=== PATIENT | female | born 1985 | race Caucasian/White ===

== ENCOUNTER 2021-05-20 14:51 | Emergency (ER) | payer OTHER, SELFPAY ==
[2021-05-20 15:35] VITALS: BP 128/81; PULSE 75; RESP 20; TEMP 36.9; O2SAT 98; BMI 34.0
--- NOTE | 2021-05-20 16:20 | HMH.EDUTC ---
[facility] [place] Disposition Clinical Impression: Pharyngitis, Viral syndrome Disposition: Home, Self-Care Condition on Discharge: Good Instructions: Sore Throat, DI for Pharyngitis/Tonsillopharyngitis -- Adult Additional Instructions: Drink plenty of fluids. Take tylenol or ibuprofen for pain or fever. Take the medications as directed. Follow up with your regular doctor. GO TO THE ER FOR ANY WORSENING SYMPTOMS Prescriptions: Benzonatate [Tessalon Perle 100mg Cap] 100 mg PO TIDP PRN #30 cap PRN Reason: Cough Transmission Status: Received by [facility] Azithromycin [Z-Luigi 250mg Tab*] 250 mg PO UD DOSE PK #6 tab Transmission Status: Received by [facility] Referrals: Lona Valdes APRN [Primary Care Provider] - Forms: Work/School Release Time of Disposition: 16:27 Medical Decision Making - Medical Records Medical records reviewed: No: I reviewed the patient's medical records. - Lonny Inquiry Pt receiving controlled substance: No Vital Signs: 05/20/21 15:35 05/20/21 16:41 Temperature 98.5 F 98.5 F Temperature Source Oral Pulse Rate 75 Pulse Rate [Right Brachial] 75 Respiratory Rate 20 20 Blood Pressure 128/81 Blood Pressure [Right Arm] 128/81 Blood Pressure Mean [Right Arm] 96 Blood Pressure Source [Right Arm] Automatic Cuff Blood Pressure Position [Right Arm] Sitting 02 Sat by Pulse Oximetry 98 Oxygen Delivery Method Room Air - Lab Data Lab Results 05/20/21 15:54: Strep Scn Rapid Clinic Negative [facility] [place] HPI - General Stated complaint: covid test Time Seen by Provider: 05/20/21 15:55 Mode of Arrival: Ambulatory Source of Information: Patient Limitations: No Limitations Description of Symptoms (Recalled from Triage Doc. by RN): PATIENT C/O SORE THROAT, CONGESTION, AND COUGH. HEENT Symptoms (Recalled from RN notes): Yes Resp Symptoms (Recalled from RN notes): No Skin Symptoms (Recalled from RN notes): No MS Symptoms (Recalled from RN notes): No Functional Status (Recalled from RN notes): WNL - History of Present Illness Provider Complaint: She c/o sore throat, sinus congestion, and feeling bad for the past 3 days. - Related Data Home Medications Medication Instructions Recorded Confirmed gabapentin 600 mg tablet PO 30 Days #90 tab 10/17/18 10/17/18 lansoprazole 15 mg capsule,delayed PO 30 Days #30 cap 10/17/18 10/17/18 release metformin 500 mg tablet,extended PO 30 Days #30 tab 10/17/18 10/17/18 release 24 hr oxycodone-acetaminophen 5 mg-325 PO 7 Days #28 tab 10/17/18 10/17/18 mg tablet Previous Rx's Medication Instructions Recorded Azithromycin [Z-Luigi 250mg Tab*] 250 mg PO UD DOSE PK #6 tab 05/20/21 Benzonatate [Tessalon Perle 100mg 100 mg PO TIDP PRN #30 cap 05/20/21 Cap] Allergies Allergy/AdvReac Type Severity Reaction Status Date / Time No Known Allergies Allergy Unverified 10/17/18 15:52 - Worker's Comp Is this a Worker's Comp case?: No [facility] History - Hepatitis A Screen Drug use history?: No High risk sexual behaviors?: No History of sexually transmitted infection?: No Currently employed?: No Childcare worker?: No Do you have indoor plumbing?: Yes Do you have electricity?: Yes Attestation statement:: This patient has been screened for Hepatitis A risk factors. I have reviewed the patient's past medical history: Yes Amputation: No Fractures: No Comment: back surgery, foot surgery - Social History Smoking Status: Never smoker Alcohol Intake: never Substance Use Type: denies use Occupational Status: other Family Hx:: No significant family history ROS Obtained: Yes All systems reviewed & no additional complaints - Constitutional Constitutional: Reports system reviewed and no additional complaints, except as docu - Eyes Eyes: Reports system reviewed and no additional complaints, except as docu - ENT Ears, Nose, Mouth, and Throat: Reports system reviewed and no additional complaints, exc
[2021-05-20 16:41] VITALS: BP 128/81; PULSE 75; RESP 20; TEMP 36.9; O2SAT 98
[2021-05-20 18:07] LABS: UTC Strep Screen (Rapid) Negative (Negative)
== END 2021-05-20 16:51 | disposition home or self-care (01) ==
PROVIDERS: Emergency Provider Nurse Practitioner Family; PCP Nurse Practitioner Family
DX: J02.9 Acute pharyngitis, unspecified (principal); B34.9 Viral infection, unspecified
CPT/HCPCS: 87880; 99202; G0463

== ENCOUNTER → 2022-11-22 14:53 | Outpatient (CLI) | payer OTHER, SELFPAY ==
--- NOTE | 2022-11-22 15:03 | XR_ITS ---
FINAL REPORT CLINICAL HISTORY: ABD PAIN FINDINGS: Flat and upright views of the abdomen were obtained. There is a nonobstructive bowel gas pattern. There is no free air. There is no abnormal calcification. There are postoperative changes in the abdomen. The bony structures are intact. IMPRESSION: No acute abnormality. Reviewed, Interpreted and Dictated by Jak Ventura III, MD Transcribed by Blaire Marquis Authenticated and [facility]
== END ==
PROVIDERS: PCP Nurse Practitioner; Visit Provider Nurse Practitioner
DX: R10.9 Unspecified abdominal pain (principal)
CPT/HCPCS: 74019

== ENCOUNTER 2023-06-09 11:03 | Emergency (ER) | payer OTHER, SELFPAY ==
[2023-06-09 11:20] VITALS: BP 143/94; PULSE 82; RESP 18; TEMP 36.9; O2SAT 99; BMI 31.7
[2023-06-09 11:30] VITALS: BP 142/90; PULSE 77; O2SAT 98
[2023-06-09 12:00] VITALS: BP 158/86; PULSE 78; O2SAT 100
--- NOTE | 2023-06-09 12:04 | US_ITS ---
PROCEDURE INFORMATION: Exam: US , Transvaginal Exam date and time: 06/09/2023 12:33 PM Age: 37 years old Clinical indication: Lmp or gestational age (in weeks): 7 weeks; Other: Spotting; ; Additional info: Preg, vag bleeding, location of preg? LABS AND CLINICAL REPORTS: Last menstrual period start date: 04/17/2023 Gestational age (Established): 7 w 4 d Estimated due date (Established): 01/22/2024 TECHNIQUE: Imaging protocol: Real-time transvaginal obstetrical ultrasound of the maternal pelvis with image documentation. Transvaginal imaging was used for better evaluation of the fetus, adnexa, and/or cervix. COMPARISON: No relevant prior studies available. FINDINGS: Gestation: No evidence of intrauterine gestational sac MATERNAL: Uterus: Endometrium measures 8.1 mm. The uterus measures 8.7 x 4.0 x 4.8 cm. No myometrial lesions. Right ovary/adnexa: Right ovary measures 3.4 cm x 2.75 cm x 2.11 cm. Right ovarian volume is 10.33 mL. Ovarian stroma is unremarkable. There is normal arterial inflow and venous outflow. Left ovary/adnexa: Left ovary measures 4.36 cm x 2.25 cm x 2.21 cm. Left ovarian volume is 11.35 mL. Ovarian stroma is unremarkable. There is normal arterial inflow and venous outflow. IMPRESSION: In the setting of a positive test, sonographic findings are consistent with of unknown location. Considerations include a normal intrauterine too early to visualize, completed miscarriage, and ectopic . The absence of adnexal lesions significantly decreases but does not entirely exclude the possibility of ectopic . Recommend correlation with beta hCG values and close clinical follow-up with repeat sonography as clinically warranted
--- NOTE | 2023-06-09 12:06 | HMH.EDGENADL ---
Discharge Plan Disposition Patient Disposition: Home, Self-Care Prescriptions Prescriptions: No Action oxycodone-acetaminophen 5-325 mg tablet PO 7 Days Qty: 28 gabapentin 600 mg tablet PO 30 Days Qty: 90 Patient Comments: TAKE 1 TABLET BY MOUTH EVERY 8 HOURS lansoprazole 15 mg capsule,delayed release(DR/EC) PO 30 Days Qty: 30 Patient Comments: TAKE 1 CAPSULE BY MOUTH EVERY DAY metformin 500 mg tablet extended release 24 hr PO 30 Days Qty: 30 Patient Comments: TAKE 1 TABLET BY MOUTH EVERY DAY WITH EVENING MEAL azithromycin 250 MG tablet 250 mg PO UD DOSE PK Qty: 6 0RF Rx Instructions: Take two (2) tablets today, then one (1) tablet days #2 thru #5 benzonatate 100 MG capsule 100 mg PO TIDP PRN (Reason: Cough) Qty: 30 0RF Referrals Follow up/Referrals: Kimmie Valverde APRN [Primary Care Provider] - See instructions Activity Restrictions/Add. Instructions Additional Instructions/Restrictions: There was no intrauterine or abnormality found in your transvaginal or transabdominal ultrasound. Additionally quantitative beta-hCG was 4 which is below the upper limit of normal meaning it is negative for . This means you either had a completed miscarriage or were never to begin with. I would follow-up with your ENGINEERING ANALYST doctor for further discussion return with any worsening symptoms. Clinical Impressions Clinical Impression: Abnormal uterine bleeding Discharge ED Provider: Ijeoma García General Adult HPI General Chief complaint: Vaginal Bleeding Stated complaint: spotting, 1-10wks Time Seen by Provider: 06/09/23 11:55 Mode of Arrival: Ambulatory Source of Information: Patient Limitations: No Limitations Description of Symptoms (Recalled from ER Triage Doc. by RN): c/o vaginal spotting this am with no abdominal pain or cramping. PT states that she seen her pcp and was told she was 1-10 wks due to her labs, pt states she sees her obgyn at on Monday or Monday. She has had 2 miscarriages in the past with 2 live births with the last child being born at 32 wks due to pre-eclampsia. History of Present Illness HPI narrative: Patient is a G5, at unknown gestational age presents today with vaginal bleeding in the setting of a positive home test. She does not have any significant bleeding or clot passage no cramps or loss of fluid. She has had 2 first trimester miscarriages in the past and 2 live births with children they are doing well at this point. She is high risk both from a medical history standpoint which she has a history of colon resection and also had preeclampsia on her last but also advanced maternal age she does not have an ENGINEERING ANALYST doctor yet but is probably get a follow[facility] with [facility]. She believes that her blood type is O+. She also states she had some urinary frequency. Related Data Home Medications Medication Instructions Recorded Confirmed gabapentin 600 mg tablet PO 30 days #90 tabs 10/17/18 10/17/18 lansoprazole 15 mg capsule,delayed PO 30 days #30 caps 10/17/18 10/17/18 release metformin 500 mg tablet,extended PO 30 days #30 tabs 10/17/18 10/17/18 release 24 hr oxycodone-acetaminophen 5 mg-325 PO 7 days #28 tabs 10/17/18 10/17/18 mg tablet Previous Rx's Medication Instructions Recorded azithromycin 250 mg tablet 250 mg PO UD DOSE PK #6 tabs 05/20/21 benzonatate 100 mg capsule 100 mg PO TIDP PRN Cough #30 caps 05/20/21 Allergies Allergy/AdvReac Type Severity Reaction Status Date / Time No Known Allergies Allergy Unverified 10/17/18 15:52 [facility] Disclaimer: The information contained in this section may have been updated after the patient was seen, as this information can be updated by other users. Social History Smoking Status: Unknown if ever smoked alcohol intake: never substance use type: denies use
[2023-06-09 12:21] LABS: Microscopic, Urine URINE MICROSCOPIC (MICROSCOPIC)
[2023-06-09 12:26] LABS: Appearance,Urine CLEAR (Clear); Bilirubin,Urine Negative (Negative); Blood, Urine 2+ (Negative); Color,Urine YELLOW (Yellow); Glucose,Urine (UA) Negative (Negative); Ketones,Urine Negative (Negative); Leukocyte Esterase,Urine Negative (Negative); Nitrate,Urine Negative (Negative); Protein,Urine Negative (Negative); Urobilinogen,Urine 0.2 EU/dl (0.2)
--- NOTE | 2023-06-09 12:30 | PC.NURSE ---
pt to US
[2023-06-09 12:45] LABS: Bacteria,Urine Trace /lpf; Squamous Epithelial Cell,Urine Occasional #/hpf (0-5)
--- NOTE | 2023-06-09 13:06 | PC.NURSE ---
Assumed patient care at this time
[2023-06-09 13:24] VITALS: BP 138/83; PULSE 71; RESP 17; O2SAT 99
--- NOTE | 2023-06-09 13:25 | PC.NURSE ---
Rounded on patient; call ram within reach of patient. Patient requesting something to drink will notify MD.
[2023-06-09 13:27] LABS: Alanine Aminotransferase 22 U/L (12-78); Albumin Level 4.5 g/dl (3.5-5.0); Albumin/Globulin Ratio 1.4 (1.1-1.8); Alkaline Phosphatase 104 U/L (38-126); Anion Gap 15.2 mEq/L (5-15); Aspartate Amino Transferase 26 U/L (14-36); Bilirubin,Total 0.5 mg/dl (0.2-1.3); Blood Urea Nitrogen 6 mg/dl (7-17); Calcium 8.8 mg/dl (8.4-10.2); Carbon Dioxide 24 mmol/L (22.0-30.0); Chloride 105 mmol/L (98-107); Creatinine Clearance Estimated 170 mL/min (50-200); Estimated Glomerular Filt Rate 112 ml/min (>60); GFR (African American) 136 ML/MIN (>60); Globulin 3.3 g/dL (1.3-3.2); Glucose 88 mg/dl (74-100); Potassium 4.2 mmoL/L (3.5-5.1); Sodium 140 mmol/L (136-145); Total Protein,Serum 7.8 g/dl (6.3-8.2)
[2023-06-09 13:28] LABS: Basophils # 0.1 K/mm3 (0-0.2); Basophils % 0.8 % (0.1-2.0); Eosinophils # 0.1 K/mm3 (0.0-0.4); Eosinophils % 0.7 % (0.1-12.0); Hematocrit 46.4 % (37.0-47.0); Hemoglobin 14.6 g/dL (12.2-16.2); Lymphocytes # 2.7 K/mm3 (0.7-4.5); Lymphocytes % 25.3 % (10-50); Mean Corpuscular HGB Conc 31.4 g/dL (31.8-35.4); Mean Corpuscular Volume 92.4 fl (81-99); Mean Platelet Volume 7.8 fl (7.4-10.4); Monocytes # 0.5 K/mm3 (0.1-1.0); Monocytes % 4.3 % (1.7-9.3); Neutrophils # 7.4 K/mm3 (1.8-7.8); Neutrophils % 68.9 % (37.0-80.0); Platelet Count 293 K/mm3 (142-424); Red Blood Count 5.02 M/mm3 (4.20-5.40); Red Cell Distribution Width 12.8 % (11.5-17.5); White Blood Count 10.8 K/mm3 (4.8-10.8)
[2023-06-09 13:44] LABS: HCG,Quantitative 4 mIU/ml (0-5.42)
[2023-06-09 14:12] VITALS: BP 129/73; PULSE 74; RESP 16; TEMP 36.7
== END 2023-06-09 14:13 | disposition home or self-care (01) ==
PROVIDERS: Emergency Provider Student in an Organized Health Care Education/Training Program; PCP Nurse Practitioner
DX: N93.9 Abnormal uterine and vaginal bleeding, unspecified (principal)
CPT/HCPCS: 36415; 76817; 80053; 81001; 84702; 85025; 86850; 99284

== ENCOUNTER 2024-01-18 09:50 | Emergency (ER) | payer OTHER, SELFPAY ==
[2024-01-18 09:52] VITALS: BP 130/65; PULSE 83; RESP 18; TEMP 36.8; O2SAT 97; BMI 34.3
[2024-01-18 10:01] VITALS: BP 137/86; PULSE 84; O2SAT 98
--- NOTE | 2024-01-18 10:08 | US_ITS ---
PROCEDURE INFORMATION: Exam: US Pelvis, Transvaginal Exam date and time: 01/18/2024 10:38 AM Age: 38 years old Clinical indication: Other: Bleeding passing clots; Additional info: Assess preg location LABS AND CLINICAL REPORTS: Last menstrual period start date: 10/25/2023 TECHNIQUE: Imaging protocol: Real-time transvaginal pelvic ultrasound with image documentation. Transvaginal imaging was used for better evaluation of the endometrium, adnexa, and/or cervix. COMPARISON: US OB TRANSVAGINAL 06/09/2023 12:33 PM FINDINGS: Uterus: The endometrium is thickened and heterogenous measuring 2.3 cm. Right ovary/adnexa: Right ovary measures 2.7 cm x 1.8 cm x 3.2cm. The Right ovarian volume is 8.65 mL. Low flow is noted in the right ovary. Left ovary/adnexa: Left ovarian volume is 14.7 mL. A cyst measuring 1.6 cm is seen in the left ovary. Left ovary measures 4.3 cm x 2.8 cm x 2.3 cm. Gestation: A intrauterine well-defined gestational sac cannot be identified. Intraperitoneal space: No free fluid. IMPRESSION: 1. No definite evidence of intrauterine gestational sac. 2. Differential diagnosis includes ectopic , , wrong dates. Follow-up ultrasound and serial beta HCG are recommended. 3. Thickened heterogenous endometrium can be seen with retained products of conception. 4. The right ovary shows low blood flow. Ovarian torsion is not entirely excluded.
--- NOTE | 2024-01-18 10:10 | HMH.EDGENADL ---
Discharge Plan Disposition Patient Disposition: Home, Self-Care Chief Complaint: Vaginal Bleeding Prescriptions Prescriptions: No Action oxycodone-acetaminophen 5-325 mg tablet PO 7 Days Qty: 28 gabapentin 600 mg tablet PO 30 Days Qty: 90 Patient Comments: TAKE 1 TABLET BY MOUTH EVERY 8 HOURS lansoprazole 15 mg capsule,delayed release(DR/EC) PO 30 Days Qty: 30 Patient Comments: TAKE 1 CAPSULE BY MOUTH EVERY DAY metformin 500 mg tablet extended release 24 hr PO 30 Days Qty: 30 Patient Comments: TAKE 1 TABLET BY MOUTH EVERY DAY WITH EVENING MEAL azithromycin 250 MG tablet 250 mg PO UD DOSE PK Qty: 6 0RF Rx Instructions: Take two (2) tablets today, then one (1) tablet days #2 thru #5 benzonatate 100 MG capsule 100 mg PO TIDP PRN (Reason: Cough) Qty: 30 0RF Referrals Follow up/Referrals: Kimmie Valverde APRN [Primary Care Provider] - See instructions Activity Restrictions/Add. Instructions Additional Instructions/Restrictions: At this time it was felt you are safe to be discharged home. If new or worsening symptoms please do not hesitate to return the emergency department. Please follow-up tomorrow for your D&C as discussed with Dr. Bender, they should contact you for an appointment. Clinical Impressions Clinical Impression: Miscarriage Discharge ED Provider: [place] General Adult HPI General Chief complaint: Vaginal Bleeding Stated complaint: vaginal bleeding Time Seen by Provider: 01/18/24 10:00 Mode of Arrival: Ambulatory Source of Information: Patient Limitations: No Limitations Description of Symptoms (Recalled from ER Triage Doc. by RN): c/o severe vaginal bleeding. Pt reports that she has been having a miscarriage since the beginning the of November, was told that the fetus had no heartbeat only a pole. States her obgyn was going to let her body try to do it on its own. She started with light bleeding on Monday. This morning around 0130 and at that time it is gushing blood with clots that went through her pad and all over her legs, she has been doing this every hour, states she is wearing 3 thin pads which she is leaking through. Some abdominal cramping off and on. History of Present Illness HPI narrative: Patient is a 38-year-old female G6, P2 all via currently who presents emergency department for evaluation of vaginal bleeding. Patient's last menstrual period was in October, has been evaluated by and [place], patient reportedly has a that measures 6 weeks with a yolk sac and pole that has not progressed on serial measurements. [place] was waiting till next week to assess whether D&C versus medical therapy was appropriate. She does not have a primary OB. Throughout the course of the morning she has had episodes of cramping and passing clots with blood. She has not had vaginal bleeding prior to this. Due to persistent symptoms she presents here for continued evaluation. Related Data Home Medications Medication Instructions Recorded Confirmed gabapentin 600 mg tablet PO 30 days #90 tabs 10/17/18 10/17/18 lansoprazole 15 mg capsule,delayed PO 30 days #30 caps 10/17/18 10/17/18 release metformin 500 mg tablet,extended PO 30 days #30 tabs 10/17/18 10/17/18 release 24 hr oxycodone-acetaminophen 5 mg-325 PO 7 days #28 tabs 10/17/18 10/17/18 mg tablet Previous Rx's Medication Instructions Recorded azithromycin 250 mg tablet 250 mg PO UD DOSE PK #6 tabs 05/20/21 benzonatate 100 mg capsule 100 mg PO TIDP PRN Cough #30 caps 05/20/21 Allergies Allergy/AdvReac Type Severity Reaction Status Date / Time No Known Allergies Allergy Unverified 10/17/18 15:52 [facility] Disclaimer: The information contained in this section may have been updated after the patient was seen, as this information can be updated by other users. Social History Smoking Status: Never smoker alcohol intake: never substance use type: denies use current occupational status: other Travel in the last 8 weeks: None ROS Obtained: Yes Systems reviewed as appropriate & no additional complaints except as documented Physical Exam General General appearance: alert and in no apparent distress Head Head exam: atraumatic and normocephalic Eye Eye exam: Present PERRL ENT ENT exam: Present mucous membranes moist Neck Neck exam: Present normal inspection Chest Chest inspection: Present normal inspection and symmetric chest wall rise Respiratory Respiratory exam: Absent respiratory distress Cardiovascular Cardiovascular exam: Present regular rate and normal rhythm Abdominal Exam Abdominal exam: Present soft; Absent tenderness Extremities Exam Extremities exam: Present normal inspection Neurological Exam Neurological exam: Present alert Psychiatric Psychiatric exam: Present normal affect Skin Skin exam: Present warm and dry Medical Decision Making Lonny Inquiry Pt receiving controlled substance: No Vital Signs: 01/18/24 09:52 01/18/24 10:01 Temperature 98.2 F Temperature Source Oral Pulse Rate 84 Pulse Rate [Left Radial] 83 Respiratory Rate 18 Blood Pressure 137/86 Blood Pressure [Right Arm] 130/65 Blood Pressure Mean [Right Arm] 86 Blood Pressure Source [Right Arm] Manual Cuff/ Palpation Blood Pressure Position [Right Arm] Sitting 02 Sat by Pulse Oximetry 97 98 Oxygen Delivery Method Room Air Lab Data Lab Results 01/18/24 10:12: WBC 8.4, RBC 3.95 L, Hgb 11.8 L, Hct 36.3 L, MCV 91.9, MCH 29.9, MCHC 32.6, RDW 13.8, Plt Count 295, MPV 7.5, Neut % (Auto) 61.2, Lymph % (Auto) 30.7, [place] % (Auto) 5.2, Eos % (Auto) 1.8, Baso % (Auto) 1.1, Neut # (Auto) 5.1, Lymph # (Auto) 2.6, [place] # (Auto) 0.4, Eos # (Auto) 0.2, Baso # (Auto) 0.1, PT 10.9, INR 1.01, Sodium 136, Potassium 3.9, Chloride 107, Carbon Dioxide 25, Anion Gap 7.9, BUN 8, Creatinine 0.60, Estimated Creat Clear 182, Estimated GFR 112, Est GFR ( Amer) 135, Glucose 99, Calcium 8.7, Total Bilirubin 0.7, AST 28, ALT 24, Alkaline Phosphatase 81, Total Protein 6.7, Albumin 3.7, Globulin 3.0, Albumin/Globulin Ratio 1.2, HCG, Quant 1435 H 01/18/24 10:20: Blood Type O Positive, Antibody Screen Negative 01/18/24 10:12 01/18/24 10:12 Orders (Tests/Meds): ORDERS Category Date Time Status Type and Screen Stat BBK 01/18/24 10:20 Completed US transvaginal Stat Exams 01/18/24 10:08 Completed Beta HCG, Quant [HCG,Quantitative] Stat Lab 01/18/24 10:12 Completed CBC w/Auto Diff [Complete Blood Count Auto Diff] Stat Lab 05/02/24 10:12 Completed CMP [Comprehensive Metabolic Panel] Stat Lab 01/18/24 10:12 Completed PT INR [Prothrombin Time INR] Stat Lab 01/18/24 10:12 Completed Medical Decision Narrative: In summary patient is a 38-year-old female with past medical history described above who presents emergency department for evaluation of vaginal bleeding in the setting of . Patient is hemodynamically stable nontoxic-appearing upon arrival, afebrile. Differential diagnosis includes pending miscarriage, among others. Workup will be conducted with hematologic labs, transvaginal ultrasound, type and screen. Workup reviewed by me, hematologic labs are nonactionable, hCG 1435. Transvaginal ultrasound shows no definitive intrauterine gestational sac, thickened heterogenous endometrium which can be seen with retained products of conception, right ovary shows low blood flow for which torsion is not entirely excluded. Patient has intermittent crampy pain with her vaginal bleeding not particularly severe pain localized to the right lower quadrant. The case was discussed with obstetrics Dr. Bender who evaluated the patient. Dr. Bender determined patient is having a miscarriage, I agree with this, is not convinced that patient has torsion. Given this patient will follow-up tomorrow for D&C and was given return precautions. Critical Care Critical Care Time Critical Care Time: No
--- NOTE | 2024-01-18 10:20 | PC.NURSE ---
pt placed in gown
[2024-01-18 10:22] LABS: Basophils # 0.1 K/mm3 (0-0.2); Basophils % 1.1 % (0.1-2.0); Chloride 107 mmol/L (98-107); Eosinophils # 0.2 K/mm3 (0.0-0.4); Eosinophils % 1.8 % (0.1-12.0); Hematocrit 36.3 % (37.0-47.0); Hemoglobin 11.8 g/dL (12.2-16.2); Lymphocytes # 2.6 K/mm3 (0.7-4.5); Lymphocytes % 30.7 % (10-50); Mean Corpuscular HGB Conc 32.6 g/dL (31.8-35.4); Mean Corpuscular Hemoglobin 29.9 pg (27.0-31.2); Mean Corpuscular Volume 91.9 fl (81-99); Mean Platelet Volume 7.5 fl (7.4-10.4); Monocytes # 0.4 K/mm3 (0.1-1.0); Monocytes % 5.2 % (1.7-9.3); Neutrophils # 5.1 K/mm3 (1.8-7.8); Neutrophils % 61.2 % (37.0-80.0); Platelet Count 295 K/mm3 (142-424); Potassium 3.9 mmoL/L (3.5-5.1); Red Blood Count 3.95 M/mm3 (4.20-5.40); Red Cell Distribution Width 13.8 % (11.5-17.5); White Blood Count 8.4 K/mm3 (4.8-10.8)
[2024-01-18 10:23] LABS: Sodium 136 mmol/L (136-145)
[2024-01-18 10:25] LABS: Alanine Aminotransferase 24 U/L (12-78); Albumin Level 3.7 g/dl (3.5-5.0); Albumin/Globulin Ratio 1.2 (1.1-1.8); Alkaline Phosphatase 81 U/L (38-126); Anion Gap 7.9 mEq/L (5-15); Aspartate Amino Transferase 28 U/L (14-36); Bilirubin,Total 0.7 mg/dl (0.2-1.3); Blood Urea Nitrogen 8 mg/dl (7-17); Carbon Dioxide 25 mmol/L (22.0-30.0); Creatinine Clearance Estimated 182 mL/min (50-200); Estimated Glomerular Filt Rate 112 ml/min (>60); GFR (African American) 135 ML/MIN (>60); Total Protein,Serum 6.7 g/dl (6.3-8.2)
[2024-01-18 10:26] LABS: Calcium 8.7 mg/dl (8.4-10.2); Glucose 99 mg/dl (74-100)
[2024-01-18 10:28] LABS: INR 1.01 (0.9-1.1); Prothrombin Time 10.9 seconds (10.1-12.5)
[2024-01-18 10:43] LABS: HCG,Quantitative 1435 mIU/ml (0-5.42)
--- NOTE | 2024-01-18 11:02 | PC.NURSE ---
PT IS AT ULTRASOUND
--- NOTE | 2024-01-18 12:38 | PC.NURSE ---
Dr. Bender at bedside to see patient.
[2024-01-18 13:02] VITALS: BP 127/67; PULSE 78; RESP 18; TEMP 36.9; O2SAT 96
--- NOTE | 2024-01-18 13:49 | EXP.GYNCONS ---
History of Present Illness *Admission Date: 01/18/24 *Reason for visit:: SAB *History of present illness: Kala Beltran is a 38yo presenting to the ED today with heavy vaginal bleeding. -The patient has had 3 previous miscarriages. States that these were all very early chemical pregnancies. Reports that she passed these on her own. -She has had 2 's without complications. The first was in 2006 and the second was in 2012. -She was not taking any contraception and this was a desired -She has been followed by [facility]. Reports that on 319 her beta-hCG was 14,000 and on 4 2 her beta-hCG was 54,000. Today her beta-hCG is 1434. She has had several vaginal ultrasounds throughout the month of December which all show a 6-week pole without cardiac activity, per patient. No cardiac activity, or pole was noted on the exam today. -The patient reports that starting at about 130 this morning she has had very heavy significant vaginal bleeding. Her hemoglobin is currently stable at 11.8. Her blood pressure is currently stable, she is not tachycardic, and all of her vital signs are stable -The patient has no known drug allergies -Reports her medications to be Pepcid, Prilosec, Zoloft, Wellbutrin, hydroxyzine, and once a day labetalol -The patient states she last ate at 7 PM last night I was originally consulted to evaluate for ovarian torsion. It is highly unlikely that she has ovarian torsion as there is no large cyst on her ovaries just a small corpus luteal cyst. She does not have significant abdominal pain, nausea, or vomiting. In the ultrasound they noted low blood flow to the ovary , but blood flow was noted. [facility] Disclaimer: The information contained in this section may have been updated after the patient was seen, as this information can be updated by other users. Medical History (Updated 01/18/24 @ 16:19 by Krys Florentino RN) Kidney stone Urinary tract infection Anxiety Depression History of gastroesophageal reflux (GERD) Hypertension Surgical History (Updated 01/18/24 @ 16:19 by Krys Florentino RN) History of back surgery History of colonoscopy History of colon resection Family History (Updated 01/18/24 @ 16:19 by Krys Florentino RN) Sister Thyroid cancer Grandmother Family history of diabetes mellitus type II Social History (Updated 01/18/24 @ 16:20 by Krys Florentino RN) Smoking Status: Never smoker alcohol intake: never substance use type: denies use current occupational status: unemployed Travel in the last 8 weeks: None Review of Systems Review of Systems Review of systems (narrative): Review of Systems Constitutional: Denies fever, chills, and sweats Eyes: Denies vision change/ pain Respiratory: Denies cough and shortness of breath Cardiovascular: Denies chest pain and lightheadedness Gastrointestinal: Admits generalized vague abdominal pain. Denies nausea, vomiting. Genitourinary: Denies dysuria and incontinence. Endorses heavy vaginal bleeding Musculoskeletal: Denies shoulder pain and back pain Neurological: Denies change in speech or headaches Meds Home Medications and Allergies Home Medications Medication Instructions Recorded Confirmed Type bupropion HCl 100 mg tablet,12 hr 100 mg PO DAILY 01/18/24 01/18/24 History sustained-release famotidine 40 mg tablet 40 mg PO DAILY 01/18/24 01/18/24 History hydroxyzine HCl 10 mg tablet 10 mg PO DAILY 01/18/24 01/18/24 History labetalol 200 mg tablet 200 mg PO DAILY 01/18/24 01/18/24 History omeprazole 20 mg capsule,delayed 20 mg PO DAILY 01/18/24 01/18/24 History release sertraline 50 mg tablet 50 mg PO DAILY 01/18/24 01/18/24 History New Prescriptions to Start Prescriptions: Allergies Allergy/AdvReac Type Severity Reaction Status Date / Time No Known Allergies Allergy Verified 01/18/24 16:20 Exam (Inpt) Vital signs and Labs for Last 24 Hours: Temp Pulse Resp BP Pulse Ox O2 Del Method 98.4 F 78 18 127/67 98 Room Air 01/18/24 13:02 01/18/24 13:02 01/18/24 13:02 01/18/24 13:02 01/18/24 10:01 01/18/24 13:02 Laboratory Results - last 24 hr 01/18/24 10:12: WBC 8.4, RBC 3.95 L, Hgb 11.8 L, Hct 36.3 L, MCV 91.9, MCH 29.9, MCHC 32.6, RDW 13.8, Plt Count 295, MPV 7.5, Neut % (Auto) 61.2, Lymph % (Auto) 30.7, Zapata % (Auto) 5.2, Eos % (Auto) 1.8, Baso % (Auto) 1.1, Neut # (Auto) 5.1, Lymph # (Auto) 2.6, Zapata # (Auto) 0.4, Eos # (Auto) 0.2, Baso # (Auto) 0.1, PT 10.9, INR 1.01, Sodium 136, Potassium 3.9, Chloride 107, Carbon Dioxide 25, Anion Gap 7.9, BUN 8, Creatinine 0.60, Estimated Creat Clear 182, Estimated GFR 112, Est GFR ( Amer) 135, Glucose 99, Calcium 8.7, Total Bilirubin 0.7, AST 28, ALT 24, Alkaline Phosphatase 81, Total Protein 6.7, Albumin 3.7, Globulin 3.0, Albumin/Globulin Ratio 1.2, HCG, Quant 1435 H 01/18/24 10:20: Blood Type O Positive, Antibody Screen Negative I & O for Labs for Last 24 Hours: Intake & Output 01/15/24 01/16/24 01/17/24 01/18/24 23:59 23:59 23:59 23:59 Weight 200 lb HEENT Head: Present normocephalic and atraumatic Eyes: Absent eye discharge or change in vision ENT: Present normal exam Neck: Present normal inspection, full ROM and trachea midline Respiratory: Present CTA bilaterally, normal respiratory effort, able to speak in complete sentences and symmetric chest movement; Absent accessory muscle use, decreased breath sounds, wheezes, distant breath sounds or diminished air movement Cardiac: Present Reg Rate and Rhythm and S1/S2; Absent Tachycardia GI: Present soft and normal bowel sounds; Absent tenderness, guarding, rebound or rigidity Rectal (female): Present deferred Extremities: Present normal inspection, full ROM and normal capillary refill; Absent tenderness or edema Skin: Present intact; Absent cyanosis, erythema, dry, pallor, mottling or petechiae Assessment and Plan *Assessment and plan (1) Miscarriage: Status: Acute Category: Medical Code(s): O03.9 - Complete or unspecified spontaneous without complication Plan #Suspected retained products of conception #SAB -Currently vital signs stable and a stable hemoglobin -Offered the patient expected, medical, and surgical management. I discussed the risk and benefits of each of these options. The patient and her partner elected to proceed with surgical management. -I counseled the patient that she may have persistent heavy uterine bleeding and that should it be greater than saturating a pad every 2 hours she should return to the ED for immediate evaluation and management. Offered a D&C today prior to leaving the hospital but the patient declined and stated she would rather have it in the morning. -Discussed the risk to include Asherman syndrome, uterine adhesions and scarring, uterine perforation, hemorrhage, and infection. I discussed the risk of not removing all products of conception and needing a second D&C or having persistent uterine bleeding. -Type and screen from ED reviewed and noted to be blood type: O+, antibody screen negative. Hemoglobin reviewed and noted to be 11.8, normocytic. Platelets: 295. No other significant lab abnormalities noted
== END 2024-01-18 13:12 | disposition home or self-care (01) ==
PROVIDERS: Emergency Provider Emergency Medicine; PCP Nurse Practitioner
DX: O03.9 Complete or unspecified spontaneous abortion without complication (principal)
CPT/HCPCS: 76830; 80053; 84702; 85025; 85610; 86850; 99284

== ENCOUNTER 2024-01-19 07:10 | Day surgery (SDC) | payer OTHER, SELFPAY ==
[2024-01-18 16:23] VITALS: BMI 34.3
[2024-01-19] VITALS (9 sets, daily range): BP systolic 106–145; BP diastolic 64–96; PULSE 68–88; RESP 16–18; TEMP 35.8–36.4; O2SAT 97–100; BMI 34.3
[2024-01-19] MEDS: LACTATED RINGERS 1000ML 1,000 ML 25 ML IV (07:36)
[2024-01-19] MEDS: DOXYCYCLINE HYCL 100 MG TABLET 200 MG PO (07:37)
--- NOTE | 2024-01-19 07:47 | P.PNANES_ITS ---
[facility] Disclaimer: The information contained in this section may have been updated after the patient was seen, as this information can be updated by other users. Medical History Kidney stone Urinary tract infection Anxiety Depression History of gastroesophageal reflux (GERD) Hypertension Surgical History History of back surgery History of colonoscopy History of colon resection Family History Sister Thyroid cancer Grandmother Family history of diabetes mellitus type II Social History Smoking Status: Never smoker alcohol intake: never substance use type: denies use current occupational status: unemployed Travel in the last 8 weeks: None [facility] Anesthesia Checklist Patient Identification Patient Identification: Arm Band, Family and Verbal (Name & ) Structural Data Admitted From: Home Planned Operative Procedure/s: D&C; poss. Priscila suction Consent for Planned Operative Procedure(s) Verified: Yes Verified Documents: Surgical Consent and History and Physical NPO Status Verified Time NPO: 22:00 Chart Verification Results Verified: CBC, BMP, PT, PTT, INR and HCG Additional verifications Patient : No Anesthesia Reactions: Yes Hx Blood Transfusions: No Blood Transfusion Reaction: No Cardiovascular Assessment Heart Sounds: S1 & S2 Pulse Rhythm: Irregular Peripheral Edema: No Airway Assessment Mallampati Score:: Class II C-Spine Mobility Assessed: Yes TMJ Mobility Assessed: Yes Dentition: Poor Dentition (Many missing, including top front middle Left tooth. Nothing loose per pt.) Neurological Assessment Level of Consciousness: Awake, Alert, Appropriate and Follows Commands Hx Seizures: No Numbness or tingling in extremities: No Anesthesia Plan Anesthesia Risk discussed: Yes Anesthesia Plan: Verified ASA Class: III Anesthesia Type: General
--- NOTE | 2024-01-19 09:39 | P.PNANES_ITS ---
[facility] Anesthesia Record Part I Anesthesia Record I Intake, IV Amount: 300 Hydration: Adequate Estimated blood loss (mL): 15 Urine output (mL): 20 Blood Products used (#): none Blood Pressure: 145/96 SaO2: 97 Pulse Rate: 76 Airway Patency: Patent Respiratory Rate: 18 Temperature: 96.4 F Patient is:: Drowsy and Stable Stable to PACU at:: 09:37
--- NOTE | 2024-01-19 10:03 | SUR.PHASEI ---
1002- detailed report given to kimberly barber in post op. Pt stable, VSS.
--- NOTE | 2024-01-19 10:07 | EXP.OP.NOTE ---
Date of procedure: 01/19/24 Pre-op Diagnosis:: 1. 6 weeks spontaneous 2. Desires surgical management 3. Rh positive Post-op Diagnosis:: 1. 6 weeks spontaneous 2. Desires surgical management 3. Rh positive Procedure performed:: Dilation and suction curettage Surgeon:: Jocelyn Bender DO GLOBAL COMPENSATION MANAGER:: Kellen Roberson Anesthesia: MAC Estimated blood loss (mL): 20 Clinical Note:: Complications: None Operative findings:: Normal-appearing external genitalia. Closed cervical os without bleeding. Operative note:: Kala Beltran is a 38-year-old who presented to the ED with heavy vaginal bleeding and was noted to be having an SAB. Expectant, medical, and surgical management were explained to the patient and she elected to undergo surgical management. She was consented for suction D&C. Risk, benefits, and alternatives were reviewed. Risk including but not limited to uterine perforation, bleeding, and infection were discussed. Medications: Doxycycline 200 mg The patient was taken back to the operating room where anesthesia was administered. She was placed in the dorsolithotomy position with yellowfin stirrups and sterilely prepped and draped with chlorhexidine in the usual fashion. In and out catheter was used to drain her bladder. Weighted speculum and a right angle retractor was used to visualize the cervix. A single-tooth tenaculum applied to the anterior lip cervix. Cervix was noted to already be dilated/open. It was able to easily accommodated a #7 rigid suction curette. The suction curette was inserted to the fundus, hooked to suction, and twisted in a clockwise fashion until the curette was removed. Products, along with old blood clots, noted in the tubing system. #3 sharp curette was used to curette the outer frias of the endometrium. This process was repeated until all uterine contents were removed. Following this careful attention was given to the bleeding from the cervical os and was noted to be minimal. However, there was bleeding from the ectocervix, posterior lip. A Bovie was used to make this hemostatic. The single-tooth tenaculum was removed and hemostasis was noted. The speculum was removed and this completed the procedure. The patient tolerated the procedure well and all instrument and sponge counts were correct x2. The patient was awakened from anesthesia and taken to the recovery room in a stable condition. The patient will be sent home after meeting all discharge criteria and follow-up with me in 2 weeks. Condition: stable Disposition: PACU Specimens:: Products of conception Complications:: None
--- NOTE | 2024-01-19 10:39 | P.PNANES_ITS ---
[facility] Anesthesia Record Part II Anesthesia Record Part II Discharge Time: 10:02 Destination: Surgical Day Care (OP Surgery) PACU nurse assessment reviewed?: Yes Patient Condition:: Good Anesthesia Complications:: None Swallowing reflex intact?: Yes Airway Patency: Patent Cyanosis?: No Blood Pressure: 136/78 SaO2: 97 Respiratory Rate: 16 Pulse Rate: 68 Temperature: 97.0 F Mental Status: Alert & Oriented Pain level:: 0 Nausea and/or vomitting:: None Intake, IV Amount: 300 Hydration: Adequate
== END 2024-01-19 10:27 | disposition home or self-care (01) ==
PROVIDERS: PCP Nurse Practitioner; Visit Provider Obstetrics & Gynecology
PROC: (CPT 59812; principal; 2024-01-19 08:30)
DX: O03.4 Incomplete spontaneous abortion without complication (principal)
CPT/HCPCS: 59812; 96372; J2405

== ENCOUNTER 2024-03-28 14:41 | Outpatient (CLI) | payer OTHER, SELFPAY ==
[2024-04-02 14:33] LABS: Miscellaneous Test SCANNED IMAGE
== END 2024-03-28 23:59 | disposition home or self-care (01) ==
LOC: LAB 14:41
PROVIDERS: PCP Nurse Practitioner; Visit Provider Obstetrics & Gynecology
DX: N96 Recurrent pregnancy loss (principal)
CPT/HCPCS: 36415; 85598; 85610; 85613; 85670; 85730; 86146; 86147

== ENCOUNTER 2024-06-11 14:50 | Outpatient (CLI) | payer OTHER, SELFPAY ==
[2024-06-11 15:52] LABS: HCG,Quantitative 400 mIU/ml (0-5.42)
[2024-06-13 08:51] LABS: Progesterone 4.3 ng/mL (.)
== END 2024-06-11 23:59 | disposition home or self-care (01) ==
LOC: LAB 14:50
PROVIDERS: PCP Nurse Practitioner; Visit Provider Obstetrics & Gynecology
DX: Z34.90 Encounter for supervision of normal pregnancy, unspecified, unspecified trimester (principal)
CPT/HCPCS: 36415; 84144; 84702

== ENCOUNTER 2024-06-15 13:02 | Outpatient (CLI) | payer OTHER, SELFPAY ==
[2024-06-15 14:47] LABS: HCG,Quantitative 562 mIU/ml (0-5.42)
== END 2024-06-15 23:59 | disposition home or self-care (01) ==
LOC: LAB 13:03
PROVIDERS: PCP Nurse Practitioner; Visit Provider Obstetrics & Gynecology
DX: N96 Recurrent pregnancy loss (principal)
CPT/HCPCS: 84702

== ENCOUNTER 2024-06-17 16:47 | Outpatient (CLI) | payer OTHER, SELFPAY ==
[2024-06-17 18:44] LABS: HCG,Quantitative 362 mIU/ml (0-5.42)
== END 2024-06-17 23:59 | disposition home or self-care (01) ==
LOC: LAB 16:47
PROVIDERS: PCP Nurse Practitioner; Visit Provider Obstetrics & Gynecology
DX: N96 Recurrent pregnancy loss (principal)
CPT/HCPCS: 84702

== ENCOUNTER 2024-06-19 16:56 | Outpatient (CLI) | payer OTHER, SELFPAY ==
[2024-06-19 17:44] LABS: HCG,Quantitative 258 mIU/ml (0-5.42)
== END 2024-06-19 23:59 | disposition home or self-care (01) ==
LOC: LAB 16:57
PROVIDERS: PCP Nurse Practitioner; Visit Provider Obstetrics & Gynecology
DX: N96 Recurrent pregnancy loss (principal); Z78.9 Other specified health status; O03.9 Complete or unspecified spontaneous abortion without complication
CPT/HCPCS: 36415; 84702

== ENCOUNTER 2024-06-29 10:57 | Outpatient (CLI) | payer OTHER, SELFPAY ==
[2024-06-29 12:42] LABS: HCG,Quantitative 4 mIU/ml (0-5.42)
== END 2024-06-29 23:59 | disposition home or self-care (01) ==
LOC: LAB 10:58
PROVIDERS: PCP Nurse Practitioner; Visit Provider Obstetrics & Gynecology
DX: Z34.90 Encounter for supervision of normal pregnancy, unspecified, unspecified trimester (principal)
CPT/HCPCS: 36415; 84702

== ENCOUNTER 2024-09-23 13:34 | Outpatient (CLI) | payer OTHER, SELFPAY ==
[2024-09-23 14:27] LABS: HCG,Quantitative 180 mIU/ml (0-5.42)
[2024-09-25 13:37] LABS: Progesterone 8.6 ng/mL (.)
== END 2024-09-23 23:59 | disposition home or self-care (01) ==
LOC: LAB 13:35
PROVIDERS: PCP Nurse Practitioner; Visit Provider Obstetrics & Gynecology
DX: Z32.01 Encounter for pregnancy test, result positive (principal)
CPT/HCPCS: 36415; 84144; 84702

== ENCOUNTER 2024-09-25 16:33 | Outpatient (CLI) | payer OTHER, SELFPAY ==
[2024-09-25 17:42] LABS: HCG,Quantitative 565 mIU/ml (0-5.42)
== END 2024-09-25 23:59 | disposition home or self-care (01) ==
LOC: LAB 16:34
PROVIDERS: PCP Nurse Practitioner; Visit Provider Obstetrics & Gynecology
DX: Z34.90 Encounter for supervision of normal pregnancy, unspecified, unspecified trimester (principal)
CPT/HCPCS: 36415; 84702

== ENCOUNTER 2024-10-16 16:17 | Outpatient (CLI) | payer OTHER, SELFPAY | END 2024-10-16 23:59 | disposition home or self-care (01) | LOC: LAB.DROPOF 16:18 | PROVIDERS: PCP Obstetrics & Gynecology; Visit Provider Obstetrics & Gynecology | DX: Z34.81 Encounter for supervision of other normal pregnancy, first trimester (principal) | CPT/HCPCS: 87086 ==

== ENCOUNTER 2024-10-19 14:18 | Outpatient (CLI) | payer OTHER, SELFPAY ==
[2024-10-19 15:09] LABS: Basophils # 0.1 K/mm3 (0-0.2); Basophils % 0.6 % (0.1-2.0); Eosinophils # 0.1 K/mm3 (0.0-0.4); Hematocrit 37.8 % (37.0-47.0); Hemoglobin 12.6 g/dL (12.2-16.2); Lymphocytes # 3.5 K/mm3 (0.7-4.5); Lymphocytes % 26.3 % (10-50); Mean Corpuscular HGB Conc 33.3 g/dL (31.8-35.4); Mean Corpuscular Hemoglobin 27.9 pg (27.0-31.2); Mean Corpuscular Volume 83.8 fl (81-99); Mean Platelet Volume 10.1 fl (7.4-10.4); Monocytes % 7.4 % (1.7-9.3); Neutrophils # 8.5 K/mm3 (1.8-7.8); Neutrophils % 64.4 % (37.0-80.0); Platelet Count 381 K/mm3 (142-424); Red Blood Count 4.51 M/mm3 (4.20-5.40); Red Cell Distribution Width 13.2 % (11.5-17.5); White Blood Count 13.2 K/mm3 (4.8-10.8)
[2024-10-19 15:25] LABS: Alanine Aminotransferase 32 U/L (12-78); Albumin Level 4.6 g/dl (3.5-5.0); Albumin/Globulin Ratio 1.6 (1.1-1.8); Alkaline Phosphatase 106 U/L (38-126); Anion Gap 14.8 mEq/L (5-15); Aspartate Amino Transferase 42 U/L (14-36); Bilirubin,Total 0.4 mg/dl (0.2-1.3); Blood Urea Nitrogen 7 mg/dl (7-17); Calcium 8.8 mg/dl (8.4-10.2); Carbon Dioxide 21 mmol/L (22.0-30.0); Chloride 105 mmol/L (98-107); Estimated Glomerular Filt Rate 111 ml/min (>60); GFR (African American) 135 ML/MIN (>60); Globulin 2.8 g/dL (1.3-3.2); Glucose 81 mg/dl (74-100); Potassium 3.8 mmoL/L (3.5-5.1); Sodium 137 mmol/L (136-145); Total Protein,Serum 7.4 g/dl (6.3-8.2)
[2024-10-19 16:00] LABS: Total Volume,Urine 750 mL (600-1600)
[2024-10-19 16:21] LABS: Total Protein 24 Hour,Urine 38 mg/24 hr (40-90); Total Protein,Urine Random < 5.0 mg/dL (0.0-12.0)
[2024-10-19 16:44] LABS: HIV Combo NEGATIVE (Negative)
[2024-10-19 16:53] LABS: Hepatitis C Ab Qual. W/ RFX NEGATIVE (Negative)
[2024-10-20 06:32] LABS: RPR W/RFX Titers Nonreactive (Nonreactive)
[2024-10-21 10:49] LABS: Rubella Antibodies, IgG 1.28 index (Immune >0.99)
[2024-10-21 11:30] LABS: Hepatitis B Surface Antigen Negative (Negative)
== END 2024-10-19 23:59 | disposition home or self-care (01) ==
LOC: LAB 14:19
PROVIDERS: Obstetrics & Gynecology; PCP Nurse Practitioner; Visit Provider Internal Medicine
DX: O13.1 Gestational [pregnancy-induced] hypertension without significant proteinuria, first trimester (principal)
CPT/HCPCS: 36415; 80053; 84155; 85025; 86592; 86762; 86803; 86850; 87340; 87389

== ENCOUNTER 2024-10-31 14:46 | Outpatient (CLI) | payer OTHER, SELFPAY ==
--- NOTE | 2024-10-31 14:46 | US_ITS ---
PROCEDURE: US OB <= 14 WEEKS FETUS CLINICAL INDICATION: Dates and Confirmation of Viability COMPARISON: No exams were available for comparison FINDINGS: Transvaginal sonographic images of the pelvis were obtained. From her last menstrual period she is 10weeks 1day. An intrauterine gestational sac is present with a pole with a crown-rump length of 2.77cm This correlates to a gestational age of 9weeks 5days. ARIA 05/28/2025 based on her last menstrual period. heart tones are present with an FHR of 183bpm. Yolk sac is noted. The yolk sac measures 6.0mm. The right ovary is seen and appears normal. There appears to be a small amount of fluid adjacent to the right ovary. The left ovary is seen and appears normal. There appears to be a 1.7 cm corpus luteum in the left ovary. There is no fluid in the cul-de-sac. Measures 9 weeks 5 days IMPRESSION: 1. Viable embryo within the uterine cavity. 2. The embryo measures 9 weeks 5 days, ARIA will be 05/28/2025 based on her last menstrual period. 3. Both ovaries are seen and appear normal. There appears to be a corpus luteum on the left ovary. 4. No fluid in the cul-de-sac. Dictated by: Juan F Mcallister MD 10/31/2024 16:21 Juan F Mcallister MD in OV 10/31/2024 16:21
== END 2024-10-31 23:59 | disposition home or self-care (01) ==
LOC: RAD 14:46
PROVIDERS: PCP Nurse Practitioner; Visit Provider Obstetrics & Gynecology
DX: O36.80X0 Pregnancy with inconclusive fetal viability, not applicable or unspecified (principal); Z3A.10 10 weeks gestation of pregnancy; N96 Recurrent pregnancy loss; Z87.59 Personal history of other complications of pregnancy, childbirth and the puerperium
CPT/HCPCS: 76801

== ENCOUNTER 2025-01-10 15:15 | Emergency (ER) | payer OTHER, SELFPAY ==
--- OUTSIDE RECORDS SUMMARY | 2025-01-10 15:24 | XMS_ITS | Data Portability ---
Author Organization [facility] [place] Address [address] [place] [address] Care Team Providers Care Staff Attorney Name Role Phone CHEPE GARNER Primary Care Provider [phone] Assessment No assessment recorded. Plan of Treatment Reminders Order Date Submit Date Provider Last Modified By Organization Details Last Modified Time Details Appointments None recorded. Lab CBC w/ auto diff 2021 022 [email or web address] 4 [facility] (Lab Registration) , [address] [place] [address] [place], [id number], 16:56:45 CMP, serum or plasma 2021 022 [email or web address] 4 [facility] (Lab Registration) , [address] [place] [address] [place], [address], 16:56:45 Referral None recorded. Procedures upper endoscopy procedure (EGD) (PROC) 2022 023 KAMRYN Not available 3 07:40:30 Surgeries None recorded. Imaging US, abdomen, limited 2021 022 [email or web address] 4 [facility] (Central Scheduling), [address] [place] [address] [place], [id number], 10:57:34 Medication Orders famotidine 40 mg tablet 2021 022 [email or web address] [id number] Not available 14:46:54 Patient TargetsNo targets recorded. Patient InstructionsNo instructions recorded. Reason for Referral None Reported. Results Created Date Observation Date Name Description Value Unit Range Abnormal Flag Note LastModifiedBy Organization Detail LastModifiedTime 07/01/2007/01/2022 CBC W/ AUTO DIFF WBC 8.12 K/uL 4.5-11 .5 Not Available [facility] (Pre-Op Clinic) [address] [place] [address] [place], [address], 07/01/2022 12:13:16 07/01/2007/01/2022 CBC W/ AUTO DIFF RBC 5.45 M/uL 4.0-5. 4 high Not Available [facility] (Pre-Op Clinic) [address] [place] [address] [place], [address], 07/01/2022 12:13:16 07/01/2007/01/2022 CBC W/ AUTO DIFF HGB 15.8 g/dL 12.0-1 5.0 high Not Available [facility] (Pre-Op Clinic) [address] [place] [address] [place], [address], 07/01/2022 12:13:16 07/01/2007/01/2022 CBC W/ AUTO DIFF HCT 46.8 % 35-49 Not Available [facility] (Pre-Op Clinic) [address] [place] [address] [place], [address], 07/01/2022 12:13:16 07/01/2007/01/2022 CBC W/ AUTO DIFF MCV 85.9 fL 80.0-1 00.0 Not Available [facility] (Pre-Op Clinic) [address] [place] [address] [place], [address], 07/01/2022 12:13:16 07/01/2007/01/2022 CBC W/ AUTO DIFF MCH 29.0 pg 26.0-3 2.0 Not Available [facility] (Pre-Op Clinic) [address] [place] [address] [place], [address], 07/01/2022 12:13:16 07/01/2007/01/2022 CBC W/ AUTO DIFF MCHC 33.8 g/dL 32.0-3 6.0 Not Available [facility] (Pre-Op Clinic) [address] [facility], [address], 07/01/2022 12:13:16 07/01/2007/01/2022 CBC W/ AUTO DIFF RDW 13.2 % 11.5-1 4.5 Not Available [facility] (Pre-Op Clinic) [address] [facility], [address], 07/01/2022 12:13:16 07/01/2007/01/2022 CBC W/ AUTO DIFF platelet count 272 K/uL 142-42 4 Not Available [facility] (Pre-Op Clinic) [address] [place] [address] [place], [address], 07/01/2022 12:13:16 07/01/2007/01/2022 CBC W/ AUTO DIFF MPV 10.9 fL 6.8-10 .2 high Not Available [facility] (Pre-Op Clinic) [address] [place] [address] [place], [address], 07/01/2022 12:13:16 07/01/2007/01/2022 CBC W/ AUTO DIFF neutrophil % 57.6 % 50-70 Not Available [facility] (Pre-Op Clinic) [address] [place] [address] [place], [address], 07/01/2022 12:13:16 07/01/2007/01/2022 CBC W/ AUTO DIFF lymphocyte % 33.1 % 18.0-4 2.0 Not Available [facility] (Pre-Op Clinic) [address] [place] [address] [place], [address], 07/01/2022 12:13:16 07/01/2007/01/2022 CBC W/ AUTO DIFF monocyte % 7.4 % 2.0-11 .0 Not Available [facility] (Pre-Op Clinic) [address] [place] [address] [place], [address], 07/01/2022 12:13:16 07/01/20 22 07/01/2022 CBC W/ AUTO DIFF eosinophil % 1.0 % 1.0-3. 0 Not Available [facility] (Pre-Op Clinic) [address] [facility], [address], 07/01/2022 12:13:16 07/01/20 22 07/01/2022 CBC W/ AUTO DIFF basophil % 0.7 % 0.0-2. 0 Not Available [facility] (Pre-Op Clinic) [address] [place] [address] [place], [address], 07/01/2022 12:13:16 07/01/2007/01/2022 CBC W/ AUTO DIFF immature granulocytes % 0.2 % 0.0-0. 8 Not Available [facility] (Pre-Op Clinic) [address] [place] [address] [place], [address], 07/01/2022 12:13:16 07/01/20 22 07/01/2022 CBC W/ AUTO DIFF nucleated red blood cells % 0.0 % Not Available [facility] (Pre-Op Clinic) [address] [place] [address] [place], [address], 07/01/2022 12:13:16 07/01/20 22 07/01/2022 CBC W/ AUTO DIFF neutrophil # 4.67 K/uL Not Available [facility] (Pre-Op Clinic) [address] [place] [address] [place], [address], 07/01/2022 12:13:16 07/01/20 22 07/01/2022 CBC W/ AUTO DIFF lymphocyte # 2.69 K/uL Not Available [facility] (Pre-Op Clinic) [address] [place] [address] [place], [address], 07/01/2022 12:13:16 07/01/20 22 07/01/2022 CBC W/ AUTO DIFF monocyte # 0.60 K/uL Not Available [facility] (Pre-Op Clinic) [address] [place] [address] [place], [address], 07/01/2022 12:13:16 07/01/20 22 07/01/2022 CBC W/ AUTO DIFF eosinophil # 0.08 K/uL Not Available [facility] (Pre-Op Clinic) [address] [place] [address] [place], [address], 07/01/2022 12:13:16 07/01/20 22 07/01/2022 CBC W/ AUTO DIFF basophil # 0.06 K/uL Not Available [facility] (Pre-Op Clinic) [address] [place] [address] [place], [address], 07/01/2022 12:13:16 07/01/20 22 07/01/2022 CBC W/ AUTO DIFF immature gramulocytes # 0.02 K/uL Not Available [facility] (Pre-Op Clinic) [address] [place] [address] [place], [address], 07/01/2022 12:13:16 07/01/20 22 07/01/2022 CBC W/ AUTO DIFF nucleated red blood cells # 0.00 k/uL Not Available [facility] (Pre-Op Clinic) [address] [place] [address] [place], [address], 07/01/2022 12:13:16 07/01/20 22 07/01/2022 CBC W/ AUTO DIFF manual differential NO Not Available [facility] (Pre-Op Clinic) [address] [place] [address] [place], [address], 07/01/2022 12:13:16 07/01/2007/01/2022 CBC W/ AUTO DIFF note Unles s other hernandez noted testi ng perfo [facility]med at: [facility] [address] [place] [address] Sergio camacho MD Not Available [facility] (Pre-Op Clinic) [address] [place] [address] [place], [address], 07/01/2022 12:13:16 07/01/2007/01/2022 COMP METAB OLIC PANEL sodium 143 mmol/ L 137-14 7 Not Available [facility] (Pre-Op Clinic) [address] [facility], [address], 07/01/2022 12:46:39 07/01/2007/01/2022 COMP METAB OLIC PANEL potassium 4.2 mmol/ L 3.5-5. 1 Not Available [facility] (Pre-Op Clinic) [address] [facility], [address], 07/01/2022 12:46:39 07/01/2007/01/2022 COMP METAB OLIC PANEL chloride 107 mmol/ L 98-110 Not Available [facility] (Pre-Op Clinic) [address] [facility], [address], 07/01/2022 12:46:39 07/01/2007/01/2022 COMP METAB OLIC PANEL carbon dioxide 23 mmol/ L 21-30 Not Available [facility] (Pre-Op Clinic) [address] [facility], [address], 07/01/2022 12:46:39 07/01/20 22 07/01/2022 COMP METAB OLIC PANEL anion gap 13 mmol/ L 6-14 Not Available [facility] (Pre-Op Clinic) [address] [facility], [address], 07/01/2022 12:46:39 07/01/20 22 07/01/2022 COMP METAB OLIC PANEL glucose 88 mg/dL 70-115 Not Available [facility] (Pre-Op Clinic) [address] [facility] [place], [address], 07/01/2022 12:46:39 07/01/20 22 07/01/2022 COMP METAB OLIC PANEL BUN 7 mg/dL 7-17 Not Available [facility] (Pre-Op Clinic) [address] [place] [address] [place], [address], 07/01/2022 12:46:39 07/01/20 22 07/01/2022 COMP METAB OLIC PANEL creatinine 0.7 mg/dL 0.5-1. 5 Not Available [facility] (Pre-Op Clinic) [address] [place] [address] [place], [address], 07/01/2022 12:46:39 07/01/20 22 07/01/2022 COMP METAB OLIC PANEL BUN/creatini ne ratio 10 ratio 10-20 Not Available [facility] (Pre-Op Clinic) [address] [place] [address] [place], [address], 07/01/2022 12:46:39 07/01/20 22 07/01/2022 COMP METAB OLIC PANEL glom filtration rate 100 mL/mi n >60- Not Available [facility] (Pre-Op Clinic) [address] [place] [address] [place], [address], 07/01/2022 12:46:39 07/01/20 22 07/01/2022 COMP METAB OLIC PANEL osmolality (calculated) 295 mosmo l/kg 275-30 1 OSMOL ALITY IS A CALCU LATIO N UTILI ZING THE SERUM /PLAS MA SODIU M, GLUCO SE AND UREA NITRO GEN (BUN) LEVEL S. FOR THE MOST ACCUR ATE RESUL T A MEASU RED SERUM OSMOL ALITY IS SUGGE STED. Not Available [facility] (Pre-Op Clinic) [address] [place] [address] [place], [address], 07/01/2022 12:46:39 07/01/20 22 07/01/2022 COMP METAB OLIC PANEL total protein 8.6 g/dL 6.2-8. 2 high Not Available [facility] (Pre-Op Clinic) [address] [place] [address] [place], [address], 07/01/2022 12:46:39 07/01/20 22 07/01/2022 COMP METAB OLIC PANEL albumin 5.0 g/dL 3.5-5. 0 Not Available [facility] (Pre-Op Clinic) [address] [place] [address] [place], [address], 07/01/2022 12:46:39 07/01/2007/01/2022 COMP METAB OLIC PANEL calcium 9.3 mg/dL 8.5-10 .8 Not Available [facility] (Pre-Op Clinic) [address] [place] [address] [place], [address], 07/01/2022 12:46:39 07/01/2007/01/2022 COMP METAB OLIC PANEL bilirubin total 1.2 mg/dL 0.2-1. 3 Not Available [facility] (Pre-Op Clinic) [address] [place] [address] [place], [address], 07/01/2022 12:46:39 07/01/2007/01/2022 COMP METAB OLIC PANEL AST (SGOT) 34 IU/L 14-36 Not Available [facility] (Pre-Op Clinic) [address] [place] [address] [place], [address], 07/01/2022 12:46:39 07/01/2007/01/2022 COMP METAB OLIC PANEL ALT (SGPT) 37 IU/L 0-35 high Pleas e note new refer ence inter juan j for ALT. Due to a recen t manuf actur er metho dolog y mcintyre e, the refer ence inter juan j for ALT is lower effec tive January 07, 2021. Not Available [facility] (Pre-Op Clinic) [address] [place] [address] [place], [address], 07/01/2022 12:46:39 07/01/2007/01/2022 COMP METAB OLIC PANEL alk phosphatase 98 IU/L 38-126 Not Available [facility] (Pre-Op Clinic) [address] [place] [address] [place], [address], 07/01/2022 12:46:39 07/01/2007/01/2022 COMP METAB OLIC PANEL note Unles s other hernandez noted testi ng perfo rmed at: [facility] [address] [place] [place] [address] Sergio camacho MD Not Available [facility] (Pre-Op Clinic) [address] [place] [address] [place], [address], 07/01/2022 12:46:39 11/04/19 23 11/04/2022 URINE PREGN DEBORAH TEST urine test NEGATI VE negati ve Not Available [facility] (Lab Registration) [address] [place], [id number], 11/04/2022 08:57:24 11/04/19 23 11/04/2022 URINE PREGN DEBORAH TEST internal control PASS PASS Not Available [facility] (Lab Registration) [address] [place], [address], 11/04/2022 08:57:24 11/04/19 23 11/04/2022 URINE PREGN DEBORAH TEST note Unles s other hernandez noted testi ng perfo rmed at: [facility] [address] [place] [address] [phone] Sergio camacho MD CLIA: [id number] Not Available [facility] (Lab Registration) [address] [place], [id number], 11/04/2022 08:57:24 11/01/19 24 11/01/2023 URINE PREGN DEBORAH TEST urine test NEGATI VE negati ve Not Available [facility] (Lab Registration) [address] [place], [id number], 11/01/2023 09:10:22 11/01/19 24 11/01/2023 URINE PREGN DEBORAH TEST internal control PASS PASS Not Available [facility] (Lab Registration) [address] [place], [address], 11/01/2023 09:10:22 11/01/19 24 11/01/2023 URINE PREGN DEBORAH TEST note Unles s other hernandez noted testi ng perfo rmed at: [facility] [address] [place] [address] [phone] Sergio camacho MD CLIA: [id number] Not Available [facility] (Lab Registration) [address] [place], [address], 11/01/2023 09:10:22 10/20/19 23 10/20/2022 US RT upper quadr ant [facility] [address] [place] [address] Phone: Fax: Name: ANGIE SELLERS Exam Date: 10/20/19 : 985 Age 37 Gender : F Access ion: [id number] Physic ramírez: MANDI ENRIQUEZ Facili ty: [facility] Facili ty HSV: Outpat ient Exam: US RT UPPER QUADRA NT Right upper quadra nt ultras ound. HISTOR Y: Acute right upper quadra nt pain . PROCED URE: Ultras ound images of the right upper quadra nt were obtain ed. FINDIN GS: Limite d images of the pancre as are obscur ed by bowel gas . The liver parenc hyma is fatty infilt rated . The gallbl adder is well visual ized and the wall appear s normal . There are no gall stones . The common duct is normal . Limite d images of the right kidney demons trate a 1.4 x 1.1 x 1.1 cm cyst. IMPRES CORBIN: Fatty infilt ration of the liver . Right renal cyst. Films review ed , interp reted and dictat ed by Dr. Luis cueva. Transc ribed by Cornell Glass PA-C. Dictat ed By: MIO MAURICIO Transc ribed By: MIO MAURICIO Transc ribed On: 10/20/19 12:11 PM Electr onical ly signed by: MIO MAURICIO 2/2/20 23 [facility] Legall y authen ticate d by LUIS Montes MD 10-20 12:11: 59 CC'ed Logic: Paz wade Provid er: DEEPIKA Tsai CC Provid er: PATSY LEONE BASHIR Attend ing Provid er: DEEPIKA Tsai Referr ing Provid er: DEEPIKA Tsai Admitt ing Provid er: DEEPIKA Tsai [email or web address] [facility] (Radiology) [address] , [place], [address], 10/26/2022 11:18:22 10/20/19 23 10/20/2022 US, abdom en, limit ed No observ ation record ed. [address] (Central Scheduling) [address] [place] [address] , [place], [address], 10/21/2022 09:23:12 11/15/19 23 11/15/2022 XR, honorio mauro [facility] [address] [place] [address] (Phone ) LOUISEO GUS Montes REPORT ------ ------ ------ ------ ------ ------ ------ ------ ----- Mariia diaz Name: ANGIE SELLERS No: [id number] 6 Medica l Record No: [id number] Date of : 1984 Access ion No: [id number] Date of Exam: 2022 Mariia diaz Type: Outpat ient Paz wade Physic ramírez: BLANQUITA COVARRUBIAS ------ ------ ------ ------ ------ ------ ------ ------ ----- FINAL REPORT PROCED URE: BARIUM SWALLO W CLINIC AL HISTOR Y: r10.13 epigas tric pain COMPAR GLENIS: None FINDIN GS: PROCED URE: The patien t ingest ed thick and thin barium contra st. Spot and overhe ad films were perfor med. A total of 14 images were saved. FINDIN GS: There is a small to modera te hiatal hernia identi fied. There is esopha geal dysmot ility noted. There is signif icant gastro esopha geal reflux demons trated to the proxim al esopha heather. A 13 mm barium tablet passes easily throug h the esopha heather and into the stomac h. RADIAT ION DOSE: 55.75 mGy IMPRES CORBIN: Mild to modera te hiatal hernia . Signif icant gastro esopha geal reflux . Esopha geal dysmot ility. Review ed, Interp reted and Dictat ed by Josseline Zuniga MD Transc ribed by RIA Song Authen ticate d and Electr onical ly Signed by Josseline Zuniga MD on 2022 04:05: 28 PM KRISTIAN Mosley CC'ed Logic: Orderi ng Provid er: FRANCISCO JUARES Y CC Provid er: ALEJANDRO ALEXANDER Attend ing Provid er: FRANCISCO JUARES Y Referr ing Provid er: FRANCISCO JUARES Y Admitt ing Provid er: FRANCISCO JUARES Y [email or web address] [facility] (Central Scheduling) [address] [place] [address] [place], [address], 11/25/2022 16:38:36 Result Notes None recorded. Problems Name Problem SNOMED Code Status Onset Date Resolution Date Notes Provider Name and Address Organization Details Recorded Time Hypertensive disorder 42301181 Active 2021 Jerrica farrell [place] - [facility] - [place] & [place] 2 10:28:03 Gastroesophag eal reflux disease 107866763 Active 2021 Jer[place] farrell [place] [facility] [place] 2 10:28:01 Upper abdominal pain 95056771 Active 2021 Marissa Enriquez NP [address] [facility], [address], [place], [address] , [place] - [facility] - [place] & [place] 2 11:22:10 Nausea 572301435 Active 2021 Marissa Enriquez NP [address], [address], [place], [address] , [place] - [facility] - [place] & [place] 2 11:22:10 Gastro-esopha geal reflux disease with ulceration 436469905 Active 2022 Yesenia Cameron [place], [place] - [facility] - [place] & [place] 3 14:13:22 Anxiety 29994295 Active 2022 Yesenia Cameron null, [place] - [facility] - [place] & [place] 3 14:13:43 Problem Notes None recorded. Procedures Surgical History Date Name Laterality Status Provider Name and Address Organization Details Recorded Time 2 Colonoscopy completed Jerrica Gay [place] [facility] [place] 07/01/2022 10:47:12 0 Colonoscopy completed Jerrica Gay [place] - [facility] [place] 07/01/2022 10:46:11 9 partial resection of colon completed Jerrica Gay [place] - [facility] [place] 07/01/2022 10:45:43 9 Back Surgery completed Jerrica Gay [place] - [facility] & [place] 07/01/2022 10:44:48 7 repair of tendo achilles completed Jerrica Gay [place] - [facility] [place] 07/01/2022 10:44:34 Colonoscopy completed Rama ELIZONDO - [facility] - [facility] & [place] 11/14/2023 11:08:32 Imaging Results Imaging Date Name Status LastModified by Organiz ation Details LastModified Time 10/20/2022 US RT upper quadrant completed [email or web address] [facility] (Radiology) [address] [place], [address], 10/26/2022 11:18:22 10/20/2022 US, abdomen, limited completed [email or web address] [place] [address] (Central Scheduling) [address] [place] [address] [place], [address], 10/21/2022 09:23:12 11/15/2022 XR, esophagram completed [email or web address] [facility] (Central Scheduling) [address] [place] [address] [place], [address], 11/25/2022 16:38:36 Procedure Notes None recorded. Medical Equipment None Reported. Allergies No known drug allergies Medications Name Sig Start Date Stop Date Status Note LastModified by Organization Details LastModified Time clindamycin HCl 300 mg capsule active Not Available Not Available Not Available fluconazole 150 mg tablet active Not Available Not Available Not Available famotidine 40 mg tablet Take 1 tablet every day by oral route in the morning for 30 days. active Not Available Not Available No t Available amlodipine 5 mg tablet TAKE 1 TABLET (5 MG) BY ORAL ROUTE ONCE DAILY active Not Available Not Available No t Available bupropion HCl SR 100 mg tablet,12 hr sustained-re lease TAKE 1 TABLET BY MOUTH TWICE DAILY active Not Available Not Available No t Available cephalexin 500 mg capsule active Not Available Not Available Not Available omeprazole 20 mg capsule,negrito yed release TAKE 1 CAPSULE BY MOUTH ONCE DAILY active Not Available Not Available No t Available hydroxyzine HCl 10 mg tablet active Not Available Not Available Not Available metformin ER 500 mg tablet,exten ded release 24 hr TAKE 1 TABLET BY MOUTH ONCE DAILY active Not Available Not Available No t Available sertraline 50 mg tablet TAKE 1 TABLET BY MOUTH ONCE DAILY active Not Available Not Available No t Available butalbital-a cetaminophen -caffeine 50 mg-300 mg-40 mg capsule active Not Available Not Available N ot Available Nexplanon 68 mg subdermal implant INJECT ONE (1) IMPLANT BY SUBCUTANEOU S ROUTE. active Not Available Not Available No t Available Vitals Date Recorded Body height Body mass index (BMI) Body weight Body temperature Oxygen saturation Oxygen saturation in Arterial blood by Pulse oximetry Heart rate Provider Name and Address Organization Details Last Updated DateTime 3 162.56 cm 33.3 kg/m2 01055.9 2 g 98.2 [degF] 98 % 98 % 86 /min Jerrica ELIZONDO - [facility] - [place] & [place] 3 09:33:01 Date Recorded Body height Body temperature Provider N john and Address Organization Details Last Updated DateTime 11/23/2022 162.56 cm 97.7 [degF] Yesenia ELIZONDO [facility] & [place] 11/23/2022 14:12:01 Date Recorded Body height Body mass index (BMI) Body weight Body temperature Oxygen saturation Oxygen saturation in Arterial blood by Pulse oximetry Heart rate Provider Name and Address Organization Details Last Updated DateTime 162.56 cm 35.2 kg/m2 86834.4 4 g 97 [degF] 98 % 98 % 88 /min Jerrica ELIZONDO [facility] & [place] 10:25:57 Social History Question Answer Notes LastModified by Organizat ion Details LastModified Time Tobacco Smoking Status [facility] [place] 07/01/2022 10:28:51 What Is Your Level Of Alcohol Consumption? None Information not available 07/01/2022 Do You Use Any Illicit Or Recreational Drugs? No [email or web address] Information not available 07/01/2022 Sex: Unknown Functional Status None recorded. Mental Status None recorded. Family History Relationship Description Onset Age of this Age Resolved Age Notes LastModified by Organization Details LastModified Time Sister Disorder of thyroid gland pt. added direct ly (06/30) [email or web address] Not available 06/30/2022 20:54:32 Father Heart disease pt. added direct ly (06/30) [email or web address] Not available 06/30/2022 20:54:57 Paternal Grandmother Disorder of endocrine system pt. added direct ly (06/30) [email or web address] Not available 06/30/2022 20:55:16 Maternal Grandmother Disorder of endocrine system pt. added direct ly (06/30) [email or web address] Not available 06/30/2022 20:55:22 Medical History Condition Response Hypertension Y GERD/Reflux Y Gynecological HistoryNo gynecological history recorded. Obstetrics History GPAL:G 0 P 0 0 0 0 Past Encounters Encounter ID Performer Location Encounter Start Date Encounter Closed Date Diagnosis/Indication Diagnosis SNOMED-CT Code Diagnosis ICD10 Code Diagnosis Note [id number] Marissa Enriquez NP [address] [place] [address] 07/01/2022 10:05:29 07/01/2022 10:56:30 Upper abdominal pain 72949474 R10.10 5 month hx of upper abdominal pain occasional ly radiates to back. associated nausea and abdominal bloating. EGD reviewed from 09/2020 noting mild gastritis, negative H. pylori as well as reflux esophagiti s. Recommend continued use of PPI as prescribed . Recommend US RUQ to r/o biliary etiology. Plan for labs today. Nausea 729137983 R11.0 Plan for labs and US as above to further evaluate. Gastroesop hageal reflux disease 513022032 K21.9 Uncontroll ed symptoms with use of Pantoprazo le 40 mg daily. Recommend continued use of PPI and start Famotidine 40 mg po daily. recommend avoidance of food triggers as well as avoidance of eating 2-4 hours prior to lying down. History of colectomy 427 778590 Z90.49 s/p laparoscop ic total colectomy with ileorectal anastomosi s 01/[address] Ruth due to multiple tubular adenomas. Negative genetic testing. Last colonoscop y with Dr. Ruth 12/2021 with recommenda tion for repeat colonoscop y in 2 years for surveillan ce. Previously recommende d that her 1st degree relatives have screening colonoscop y. Also recommende d that her children begin screening colonoscop y at age 20. [id number] Rossy Colón [facility] [address] [place] [address] 10/26/2022 09:16:27 10/26/2022 13:53:04 Esophageal dysphagia 65569253 R13.19 RUQ US reviewed, demonstrat es fatty liver. ALT minimally elevated at 37. These are chronic findings per her report. She continues to struggle with abdominal bloating, pain. Also notes dysphagia. Recommend EGD to rule out PUD, worsening gastritis, obtain biopsies to r/o h. pylori. [id number] Michele Chavez Jr, MD [facility] [place] [address] 11/23/2022 13:50:23 11/23/2022 14:44:22 Simple renal cyst [id number] N28.1 patient with a small simple right renal cyst. We discussed that simple renal cysts are benign and have no malignant potential. He would not cause her any right-side d flank pain or any other symptoms. She was reassured and follow-up as needed. Health Concerns Section Related Observation LastModified by Organization Detai ls LastModified Time None Recorded Concern Status LastModified by Organization Details LastModified Time None Recorded Advance Directives Directive None Recorded Payers Encounter Date Sequence Insurance Name Policy Number Policy Estevez Covered Member ID Estevez Member ID Guarantor Name 07/01/2022 1 [employer] [facility] (MEDICAID HMO) Kala Perraut [id number] Kala Perraut 10/26/2022 1 [employer] [facility] (MEDICAID HMO) Kala Perraut [id number] Kala Perraut 11/23/2022 1 [employer] [facility] (MEDICAID HMO) Kala Perraut [id number] Kala Perraut Notes Date Note Type Note Provider Name and Address Organization Details Recorded Time 07/01/2022 text/html Patient returns to clinic today with complaints of upper abdominal pain with associated nausea and abdominal bloating for the past 5 months. Symptoms occur daily, worse after eating. Pain does occasionally radiate to her back. Minimal caffeine intake. Drinks primarily water. She continues pantoprazole 40 mg for treatment of GERD however reports frequent uncontrolled symptoms. EGD reviewed from 10/07/2020 noted mild gastritis as well as chronic reflux esophagitis negative H pylori. She had a colonoscopy with Dr. Ruth at [facility] 12/29/2021 due to hx of hx of colon polyps, S/P colectomy 12/2018. Due for repeat colonoscopy in 2 years, 12/2023. Marissa Enriquez NP [address] [place] [address], [address], [place], [address], [place] - [facility] - [place] & [place] 07/01/2022 11:26:54 10/26/2022 text/html This is a 37-year-old female who is seen today in follow up for abdominal pain and bloating. She is seen today in follow up with BENJAMÍN HOLLY. Her complaint today is abdominal bloating that occurs with most meals. Upper abdominal pain occurs occasionally. She does note some difficulty with swallowing. Denies nausea or vomiting. Her last EGD was 09/2020 which demonstrated mild gastritis and chronic reflux esophagitis. She has a history of colectomy in 2019 at and is due for repeat colonoscopy in 2023. RIA Alaniz [address], [address], [place], [address], [facility] - [facility] 10/26/2022 13:23:07 11/23/2022 text/html patient is a 37-year-old white female referred for recent incidental finding of a 1.4 x 1.1 simple right renal cyst. Patient has had some recent right upper quadrant pain necessitating the ultrasound. Patient does have a history of polyposis and underwent resection of 80% every: By report. Michele Chavez Jr, MD [address], [address], [place], [address], [place] - [facility] & [place] 11/23/2022 16:10:19 OBGyn Episode No OBEpisode recorded.
[2025-01-10 15:27] VITALS: BP 125/63; PULSE 85; RESP 20; TEMP 36.7; O2SAT 100; BMI 38.0
--- NOTE | 2025-01-10 15:54 | XR_ITS ---
FINAL REPORT CLINICAL HISTORY: cat bites wrist, eval foreign body/retained tooth FINDINGS: RIGHT WRIST Three views were obtained. There is no acute fracture or dislocation. Joint spaces are maintained. No acute soft tissue abnormality is seen. No radiopaque foreign body is identified. IMPRESSION: No acute bony abnormality. Reviewed, Interpreted and Dictated by Walter Cruz MD Transcribed by Abby Louie Authenticated and [facility]
[2025-01-10] MEDS: TET/DIPHTH/PERT-ADULT 0.5ML SYRINGE 0.5 ML IM (16:07)
[2025-01-10] MEDS: AZITHROMYCIN 250MG TABLET 500 MG PO (16:07)
--- NOTE | 2025-01-10 16:15 | ED_ITS ---
Discharge Plan Disposition Patient Disposition: Home, Self-Care Condition: Good Prescriptions Prescriptions: New azithromycin 500 mg tablet 500 mg PO DAILY 2 Days Qty: 2 0RF Rx Instructions: Please start 01/11/2025, as you were given first dose in the ER. No Action aspirin 81 mg tablet,delayed release (DR/EC) 81 mg PO BID Qty: 60 1RF famotidine 40 mg tablet 40 mg PO DAILY bupropion HCl 100 mg tablet sustained-release 12 hr 100 mg PO DAILY Patient Comments: take 1 tablet (100 mg) by oral route 2 times per day omeprazole 20 mg capsule,delayed release(DR/EC) 20 mg PO DAILY Patient Comments: take 1 tablet by mouth daily hydroxyzine HCl 10 mg tablet 10 mg PO DAILY Patient Comments: take 1 tablet by mouth 4 times a day as needed sertraline 50 mg tablet 50 mg PO DAILY Patient Comments: take 1 tablet by mouth once daily Referrals Follow up/Referrals: Kimmie Valverde APRN [Primary Care Provider] - See instructions Activity Restrictions/Add. Instructions Additional Instructions/Restrictions: You were evaluated in the emergency department today. Please picker tender your prescription at the pharmacy and take this in addition to the Augmentin that was previously prescribed to you. Take Tylenol every 4-6 hours as needed for pain. Return to the emergency department for new or worsening symptoms. Clinical Impressions Clinical Impression: Cat scratch, Cat bite Stand Alone Forms Stand Alone Forms: Work/School Release Instructions Patient Instructions: How to Care for a Domestic Animal Bite, Animal Bites Print Language Print Language: [place] Discharge ED Provider: Eden Mckenna General Adult HPI General Chief complaint: Animal Bite Stated complaint: AO01/09/25 Cat scratches,20 weeks Time Seen by Provider: 01/10/25 15:33 Mode of Arrival: Ambulatory Source of Information: Patient Description of Symptoms (Recalled from ER Triage Doc. by RN): pt is 20 weeks pr egerikat and sees dr pineda for ob, yesterday broke up a cat fight and her brothers cat scratch and bit right arm, History of Present Illness HPI narrative: This patient is a 39-year-old female at estimated 20 weeks gestation with history of hypertension presented to the emergency department for evaluation with concern for cat bites and scratches to the right upper extremity. Patient notes that she tried to break up a fight between her brothers cats and she got scratches and bites on the right arm. She states that she is not concerned about the animal's rabies vaccination status, as they are up-to-date with vet and never go outside. She went to outside hospital yesterday where she was given Augmentin, and she states that she called her OB to follow-up and was advised to come to the ED here for tetanus and further antibiotics. She denies any other concerns or complaints. Related Data Home Medications ?Medication ?Instructions ?Recorded ?Confirmed bupropion HCl 100 mg tablet,12 hr 100 mg PO DAILY 01/18/24 01/08/25 sustained-release famotidine 40 mg tablet 40 mg PO DAILY 01/18/24 01/08/25 hydroxyzine HCl 10 mg tablet 10 mg PO DAILY 01/18/24 01/08/25 omeprazole 20 mg capsule,delayed 20 mg PO DAILY 01/18/24 01/08/25 release sertraline 50 mg tablet 50 mg PO DAILY 01/18/24 01/08/25 Previous Rx's ?Medication ?Instructions ?Recorded aspirin 81 mg tablet,delayed 81 mg PO BID #60 tabs 11/13/24 release azithromycin 500 mg tablet 500 mg PO DAILY 2 days #2 tabs 01/10/25 Allergies Allergy/AdvReac Type Severity Reaction Status Date / Time No Known Allergies Allergy Verified 01/08/25 09:54 [facility] Disclaimer: The information contained in this section may have been updated after the patient was seen, as this information can be updated by other users. Medical History Kidney stone Anxiety Depression History of gastroesophageal reflux (GERD) Hypertension Surgical History History of back surgery History of colonoscopy History of colon resection Family History Sister Thyroid cancer Grandmother Family history of diabetes mellitus type II Social History Smoking Status: Never smoker alcohol intake: never substance use type: denies use current occupational status: unemployed Travel in the last 8 weeks: None Have you lived/traveled outside US in past 30 days?: No Contact w/someone who lives/traveled outside US past 30 days?: No Exposure to someone with infectious disease in past 14 days?: No Do you have a fever (greater than 100.4 F or 38 C)?: No Have you tested positive for COVID-19: No Exposed to someone with COVID-19 in past 14 days?: No Do you have a sore throat?: No Do you have a cough?: No Do you have any weakness?: No Do you have any diarrhea?: No Are you experiencing any unusual bleeding?: No Do you have any muscle aches/pain?: No Do you have any abdominal pain?: Yes Are you experiencing loss of taste or smell?: No ROS Obtained: Yes All systems reviewed & no additional complaints except as documented Physical Exam General General appearance: alert and in no apparent distress Head Head exam: atraumatic and normocephalic Eye Eye exam: Present normal appearance, PERRL and EOMI ENT ENT exam: Present normal exam, normal oropharynx, mucous membranes moist and normal external ear exam Neck Neck exam: Present normal inspection, full ROM and trachea midline; Absent tenderness Chest Chest inspection: Present normal inspection and symmetric chest wall rise; Absent tenderness Respiratory Respiratory exam: Present normal lung sounds bilaterally; Absent respiratory distress, wheezes, stridor or accessory muscle use Cardiovascular Cardiovascular exam: Present regular rate and normal rhythm Abdominal Exam Abdominal exam: Present soft; Absent distention, tenderness or guarding Extremities Exam Extremities exam: Present full ROM, normal capillary refill and other (Multiple scratches and bites to the right wrist without significant erythema, warmth, no purulence. Neurovascularly intact distally.); Absent tenderness or edema Back Exam Back exam: Present normal inspection and full ROM; Absent tenderness Neurological Exam Neurological exam: Present alert, oriented X3, CN II-XII intact and normal gait; Absent motor sensory deficit Psychiatric Psychiatric exam: Present normal affect and normal mood Skin Skin exam: Present warm and dry Medical Decision Making Medical Records Medical records reviewed: Yes I reviewed the patient's medical records. Screening: Per USPSTF and CDC recommendations, given the prevalence of disease in our region, it is our hospital?s policy to screen for HIV and viral Hepatitis for all patients aged 18 and over and those with ongoing risk factors. Lonny Inquiry Pt receiving controlled substance: No Vital Signs: 01/10/25 15:27 01/10/25 16:57 Temperature 98.1 F 98.7 F Temperature Source Oral Oral Pulse Rate 84 Pulse Rate [Left Radial] 85 Respiratory Rate 20 18 Blood Pressure 125/83 Blood Pressure [Right Arm] 125/63 Blood Pressure Mean [Right Arm] 83 Blood Pressure Source Automatic Cuff Blood Pressure Position Supine 02 Sat by Pulse Oximetry 100 Oxygen Delivery Method Room Air Room Air Lab Data Lab results reviewed: Yes I reviewed the patient's lab results. Orders (Tests/Meds): ED MEDICATIONS Discontinued Medications Generic Name Dose Route Start Last Admin Trade Name Shiela PRN Reason Stop Dose Admin Azithromycin 500 mg 01/10/25 15:54 01/10/25 16:07 Azithromycin 250mg Tablet PO 01/10/25 15:55 500 mg ONCE ONE Administration Tetanus/Reduced Diphtheria/Acell Pertussis 0.5 ml 01/10/25 15:54 01/10/25 16:07 Tet/Diphth/Pert-Adult 0.5ml Syringe IM 01/10/25 15:55 0.5 ml .ONCE ONE Administration ORDERS Category Date Time Status Wrist XR right 2 views [XR wrist RT 2V] Stat Exams 01/10/25 15:54 Completed Medical Decision Narrative: In summary, this patient is a 39-year-old female presenting to the Emergency Department for evaluation of cat scratches and bites to the right upper extremity. Differential diagnoses considered include but are not limited to cat scratch, cat bite, retained foreign body, neurovascular injury. Ruling out the most morbid conditions drove assessment. On exam, the patient is well-appearing. She has multiple scratches and bites to her right wrist that are hemostatic without erythema, warmth, or purulence. She is neurovascularly intact distally. Workup included x-ray of the right wrist to evaluate for foreign body such as fractured tooth. She was shielded in the setting of . I independently interpreted x-ray prior to the radiologist read and noted no retained foreign body, no fracture. Please see their read for final interpretation. Patient was already prescribed Augmentin, and I feel that adding azithromycin to her regimen would be appropriate given concerns for Bartonella/cat scratch disease. She was also given Tdap booster here. At this time, I feel that she is appropriate for discharge home with instructions for supportive management, wound care, and adding azithromycin onto Augmentin. Strict return precautions were given Critical Care Critical Care Time Critical Care Time: No
[2025-01-10 16:57] VITALS: BP 125/83; PULSE 84; RESP 18; TEMP 37.1; O2SAT 97
== END 2025-01-10 16:59 | disposition home or self-care (01) ==
PROVIDERS: Emergency Provider Emergency Medicine; PCP Nurse Practitioner
DX: O9A.212 Injury, poisoning and certain other consequences of external causes complicating pregnancy, second trimester (principal); S61.531A Puncture wound without foreign body of right wrist, initial encounter; S60.811A Abrasion of right wrist, initial encounter; Z3A.20 20 weeks gestation of pregnancy; W55.01XA Bitten by cat, initial encounter; W55.03XA Scratched by cat, initial encounter; Z23 Encounter for immunization
CPT/HCPCS: 73100; 90471; 90715; 99283

== ENCOUNTER 2025-01-20 14:57 | Outpatient (CLI) | payer OTHER, SELFPAY ==
--- OUTSIDE RECORDS SUMMARY | 2025-01-20 15:01 | XMS_ITS | Data Portability ---
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 Plan of Treatment Reminders Order Date Submit Date Provider Last Modified By Organization Details Last Modified Time Details Appointments None recorded. Lab CBC w/ auto diff 2021 022 [email or web address] 4 [facility] (Lab Registration) , [address] [place] [address] [place], [address], 16:56:45 CMP, serum or plasma 2021 022 [email or web address] 4 [facility] (Lab Registration) , [address] [place] [address] [place], [address], 16:56:45 Referral None recorded. Procedures upper endoscopy procedure (EGD) (PROC) 2022 023 [email or web address] Not available 3 07:40:30 Surgeries None recorded. Imaging US, abdomen, limited 2021 022 [email or web address] 4 [facility] (Central Scheduling), [address] [place] [address] [place], [address], 10:57:34 Medication Orders famotidine 40 mg tablet 2021 022 [email or web address] 4 Not available 14:46:54 Patient TargetsNo targets recorded. Patient InstructionsNo instructions recorded. Reason for Referral None Reported. Results Created Date Observation Date Name Description Value Unit Range Abnormal Flag Note LastModifiedBy Organization Detail LastModifiedTime 07/01/2007/01/2022 CBC W/ AUTO DIFF WBC 8.12 K/uL 4.5-11 .5 Not Available [facility] (Pre-Op Clinic) [address] [place] [address] [place], [address], 07/01/2022 12:13:16 07/01/2007/01/2022 CBC W/ AUTO DIFF RBC 5.45 M/uL 4.0-5. 4 high Not Available [facility] (Pre-Op Clinic) [address] [place] [address] [place], [address], 07/01/2022 12:13:16 07/01/2007/01/2022 CBC W/ AUTO DIFF HGB 15.8 g/dL 12.0-1 5.0 high Not Available [facility] (Pre-Op Clinic) [address] [place] [address] [place], [address], 07/01/2022 12:13:16 07/01/2007/01/2022 CBC W/ AUTO DIFF HCT 46.8 % 35-49 Not Available [facility] (Pre-Op Clinic) [address] [place] [address] [place], [address], 07/01/2022 12:13:16 07/01/2007/01/2022 CBC W/ AUTO DIFF MCV 85.9 fL 80.0-1 00.0 Not Available [facility] (Pre-Op Clinic) [address] [place] [address] [place], [address], 07/01/2022 12:13:16 07/01/2007/01/2022 CBC W/ AUTO DIFF MCH 29.0 pg 26.0-3 2.0 Not Available [facility] (Pre-Op Clinic) [address] [place] [address] [place], [address], 07/01/2022 12:13:16 07/01/2007/01/2022 CBC W/ AUTO DIFF MCHC 33.8 g/dL 32.0-3 6.0 Not Available [facility] (Pre-Op Clinic) [address], [address], 07/01/2022 12:13:16 07/01/2007/01/2022 CBC W/ AUTO DIFF RDW 13.2 % 11.5-1 4.5 Not Available [facility] (Pre-Op Clinic) [address] [place], [address], 07/01/2022 12:13:16 07/01/2007/01/2022 CBC W/ AUTO DIFF platelet count 272 K/uL 142-42 4 Not Available [facility] (Pre-Op Clinic) [address] [place] [address] [place], [address], 07/01/2022 12:13:16 07/01/2007/01/2022 CBC W/ AUTO DIFF MPV 10.9 fL 6.8-10 .2 high Not Available [facility] (Pre-Op Clinic) [address] [place] [address] [place], [address], 07/01/2022 12:13:16 07/01/2007/01/2022 CBC W/ AUTO DIFF neutrophil % 57.6 % 50-70 Not Available [facility] (Pre-Op Clinic) [address] [place] [address] [place], [address], 07/01/2022 12:13:16 07/01/2007/01/2022 CBC W/ AUTO DIFF lymphocyte % 33.1 % 18.0-4 2.0 Not Available [facility] (Pre-Op Clinic) [address] [place] [address] [place], [address], 07/01/2022 12:13:16 07/01/2007/01/2022 CBC W/ AUTO DIFF monocyte % 7.4 % 2.0-11 .0 Not Available [facility] (Pre-Op Clinic) [address] [place] [address] [place], [address], 07/01/2022 12:13:16 07/01/20 22 07/01/2022 CBC W/ AUTO DIFF eosinophil % 1.0 % 1.0-3. 0 Not Available [facility] (Pre-Op Clinic) [address] [place], [address], 07/01/2022 12:13:16 07/01/20 22 07/01/2022 CBC W/ AUTO DIFF basophil % 0.7 % 0.0-2. 0 Not Available [facility] (Pre-Op Clinic) [address] [place] [address] [place], [address], 07/01/2022 12:13:16 07/01/2007/01/2022 CBC W/ AUTO DIFF immature granulocytes % 0.2 % 0.0-0. 8 Not Available [facility] (Pre-Op Clinic) [address] [place] [address] [place], [address], 07/01/2022 12:13:16 07/01/20 22 07/01/2022 CBC W/ AUTO DIFF nucleated red blood cells % 0.0 % Not Available [facility] (Pre-Op Clinic) [address] [place] [address] [place], [address], 07/01/2022 12:13:16 07/01/20 22 07/01/2022 CBC W/ AUTO DIFF neutrophil # 4.67 K/uL Not Available [facility] (Pre-Op Clinic) [address] [place] [address] [place], [address], 07/01/2022 12:13:16 07/01/20 22 07/01/2022 CBC W/ AUTO DIFF lymphocyte # 2.69 K/uL Not Available [facility] (Pre-Op Clinic) [address] [place] [address] [place], [address], 07/01/2022 12:13:16 07/01/20 22 07/01/2022 CBC W/ AUTO DIFF monocyte # 0.60 K/uL Not Available [facility] (Pre-Op Clinic) [address] [place] [address] [place], [address], 07/01/2022 12:13:16 07/01/20 22 07/01/2022 CBC W/ AUTO DIFF eosinophil # 0.08 K/uL Not Available [facility] (Pre-Op Clinic) [address] [place] [address] [place], [address], 07/01/2022 12:13:16 07/01/20 22 07/01/2022 CBC W/ AUTO DIFF basophil # 0.06 K/uL Not Available [facility] (Pre-Op Clinic) [address] [place] [address] [place], [address], 07/01/2022 12:13:16 07/01/20 22 07/01/2022 CBC W/ AUTO DIFF immature gramulocytes # 0.02 K/uL Not Available [facility] (Pre-Op Clinic) [address] [place] [address] [place], [address], 07/01/2022 12:13:16 07/01/20 22 07/01/2022 CBC W/ AUTO DIFF nucleated red blood cells # 0.00 k/uL Not Available [facility] (Pre-Op Clinic) [address] [place] [address] [place], [address], 07/01/2022 12:13:16 07/01/20 22 07/01/2022 CBC W/ AUTO DIFF manual differential NO Not Available [facility] (Pre-Op Clinic) [address] [place] [address] [place], [address], 07/01/2022 12:13:16 07/01/2007/01/2022 CBC W/ AUTO DIFF note Unles s other hernandez noted testi ng perfo [facility]med at[facility] [address] [place] [address] Sergio camacho MD Not Available [facility] (Pre-Op Clinic) [address] [place] [address] [place], [address], 07/01/2022 12:13:16 07/01/2007/01/2022 COMP METAB OLIC PANEL sodium 143 mmol/ L 137-14 7 Not Available [facility] (Pre-Op Clinic) [address] [place], [address], 07/01/2022 12:46:39 07/01/2007/01/2022 COMP METAB OLIC PANEL potassium 4.2 mmol/ L 3.5-5. 1 Not Available [facility] (Pre-Op Clinic) [address] [place], [address], 07/01/2022 12:46:39 07/01/2007/01/2022 COMP METAB OLIC PANEL chloride 107 mmol/ L 98-110 Not Available [facility] (Pre-Op Clinic) [address] [place], [address], 07/01/2022 12:46:39 07/01/2007/01/2022 COMP METAB OLIC PANEL carbon dioxide 23 mmol/ L 21-30 Not Available [facility] (Pre-Op Clinic) [address] [place], [address], 07/01/2022 12:46:39 07/01/20 22 07/01/2022 COMP METAB OLIC PANEL anion gap 13 mmol/ L 6-14 Not Available [facility] (Pre-Op Clinic) [address] [place], [address], 07/01/2022 12:46:39 07/01/20 22 07/01/2022 COMP METAB OLIC PANEL glucose 88 mg/dL 70-115 Not Available [facility] (Pre-Op Clinic) [address] [place], [address], 07/01/2022 12:46:39 07/01/20 22 07/01/2022 COMP METAB OLIC PANEL BUN 7 mg/dL 7-17 Not Available [facility] (Pre-Op Clinic) [address] [place] [address] [place], [address], 07/01/2022 12:46:39 07/01/20 22 07/01/2022 COMP METAB OLIC PANEL creatinine 0.7 mg/dL 0.5-1. 5 Not Available [facility] (Pre-Op Clinic) [address] [place] [address] [place], [address], 07/01/2022 12:46:39 07/01/20 22 07/01/2022 COMP METAB OLIC PANEL BUN/creatini ne ratio 10 ratio 10-20 Not Available [facility] (Pre-Op Clinic) [address] [place] [address] [place], [address], 07/01/2022 12:46:39 07/01/20 22 07/01/2022 COMP METAB OLIC PANEL glom filtration rate 100 mL/mi n >60- Not Available [facility] (Pre-Op Clinic) [address] [place] [address] [place], [address], 07/01/2022 12:46:39 07/01/20 22 07/01/2022 COMP METAB OLIC PANEL osmolality (calculated) 295 mosmo l/kg 275-30 1 OSMOL ALITY IS A CALCU LATIO N UTILI ZING THE SERUM /PLAS MA SODIU M, GLUCO SE AND UREA NITRO GEN (BUN) LEVEL S. FOR THE MOST ACCUR ATE RESUL T A MEASU RED SERUM OSMOL ALITY IS SUGGE STED. Not Available [facility] (Pre-Op Clinic) [address] [place] [address] [place], [address], 07/01/2022 12:46:39 07/01/20 22 07/01/2022 COMP METAB OLIC PANEL total protein 8.6 g/dL 6.2-8. 2 high Not Available [facility] (Pre-Op Clinic) [address] [place] [address] [place], [address], 07/01/2022 12:46:39 07/01/20 22 07/01/2022 COMP METAB OLIC PANEL albumin 5.0 g/dL 3.5-5. 0 Not Available [facility] (Pre-Op Clinic) [address] [place] [address] [place], [address], 07/01/2022 12:46:39 07/01/2007/01/2022 COMP METAB OLIC PANEL calcium 9.3 mg/dL 8.5-10 .8 Not Available [facility] (Pre-Op Clinic) [address] [place] [address] [place], [address], 07/01/2022 12:46:39 07/01/2007/01/2022 COMP METAB OLIC PANEL bilirubin total 1.2 mg/dL 0.2-1. 3 Not Available [facility] (Pre-Op Clinic) [address] [place] [address] [place], [address], 07/01/2022 12:46:39 07/01/2007/01/2022 COMP METAB OLIC PANEL AST (SGOT) 34 IU/L 14-36 Not Available [facility] (Pre-Op Clinic) [address] [place] [address] [place], [address], 07/01/2022 12:46:39 07/01/2007/01/2022 COMP METAB OLIC PANEL ALT (SGPT) 37 IU/L 0-35 high Pleas e note new refer ence inter juan j for ALT. Due to a recen t manuf actur er metho dolog y mcintyre e, the refer ence inter juan j for ALT is lower effec tive January 07, 2021. Not Available [facility] (Pre-Op Clinic) [address] [place] [address] [place], [address], 07/01/2022 12:46:39 07/01/2007/01/2022 COMP METAB OLIC PANEL alk phosphatase 98 IU/L 38-126 Not Available [facility] (Pre-Op Clinic) [address] [place] [address] [place], [address], 07/01/2022 12:46:39 07/01/2007/01/2022 COMP METAB OLIC PANEL note Unles s other hernandez noted testi ng perfo rmed at: [facility] [address] [place] [address] Sergio camacho MD Not Available [facility] (Pre-Op Clinic) [address] [place] [address] [place], [address], 07/01/2022 12:46:39 11/04/19 23 11/04/2022 URINE PREGN DEBORAH TEST urine test NEGATI VE negati ve Not Available [facility] (Lab Registration) [address] [place], [address], 11/04/2022 08:57:24 11/04/19 23 11/04/2022 URINE PREGN DEBORAH TEST internal control PASS PASS Not Available [facility] (Lab Registration) [address] [place], [address], 11/04/2022 08:57:24 11/04/19 23 11/04/2022 URINE PREGN DEBORAH TEST note Unles s other hernandez noted testi ng perfo rmed at: [facility] [address] [place] [address] [phone] Sergio camacho MD CLIA: [id number] Not Available [facility] (Lab Registration) [address] [place], [address], 11/04/2022 08:57:24 11/01/19 24 11/01/2023 URINE PREGN DEBORAH TEST urine test NEGATI VE negati ve Not Available [facility] (Lab Registration) [address] [place], [address], 11/01/2023 09:10:22 11/01/19 24 11/01/2023 URINE PREGN DEBORAH TEST internal control PASS PASS Not Available [facility] (Lab Registration) [address] [place], [address], 11/01/2023 09:10:22 11/01/19 24 11/01/2023 URINE PREGN DEBORAH TEST note Unles s other hernandez noted testi ng perfo rmed at: [facility] [address] [place] [address] [phone] Sergio camacho MD CLIA: [id number] Not Available [facility] (Lab Registration) [address] [place], [address], 11/01/2023 09:10:22 10/20/19 23 10/20/2022 US RT upper quadr ant [facility] [address] [place] [address] Phone: Fax: Name: ANGIE SELLERS Exam Date: 10/20/19 : 985 Age 37 Gender : F Access ion: [id number] Physic ramírez: MANDI ENRIQUEZ Facili ty: [facility] Facili ty HSV: Outpat ient Exam: US [...] [facility] Legall y authen ticate d by LUIS Montes MD 10-20 12:11: 59 CC'ed Logic: Paz wade Provid er: DEEPIKA Tsai CC Provid er: PATSY LEONE BASHIR Attend ing Provid er: DEEPIKA Tsai Referr ing Provid er: DEEPIKA Tsai Admitt ing Provid er: DEEPIKA Tsai [email or web address] [facility] (Radiology) [address] , [place], [address], 10/26/2022 11:18:22 10/20/19 23 10/20/2022 US, abdom en, limit ed No observ ation record ed. [address] (Central Scheduling) [address] [place] [address] , [place], [address], 10/21/2022 09:23:12 11/15/19 23 11/15/2022 XR, honorio mauro [facility] [address] [place] [address] [phone] (Phone ) LOUISEO GUS Montes REPORT ------ ------ ------ ------ ------ ------ ------ ------ ----- Mariia diaz Name: ANGIE SELLERS No: [id number] 6 Medica l Record No: [id number] Date of : 1984 Access ion No: [id number] Date of Exam: 2022 Mariia diaz [...] Admitt ing Provid er: FRANCISCO JUARES Y [email or web address] [facility] (Central Scheduling) [address] [place] [address] [place], [address], 11/25/2022 16:38:36 Result Notes None recorded. Problems Name Problem SNOMED Code Status Onset Date Resolution Date Notes Provider Name and Address Organization Details Recorded Time Hypertensive disorder 86525926 Active 2021 Jerrica farrell [place] - [facility] - [place] & [place] 2 10:28:03 Gastroesophag eal reflux disease 156021323 Active 2021 Jerrica farrell [place] [facility] [place] 2 10:28:01 Upper abdominal pain 74274779 Active 2021 Marissa Enriquez NP [address] [facility], [address], [place], [address] , [place] - [facility] [place] & [place] 2 11:22:10 Nausea 911838146 Active 2021 Marissa Enriquez NP [address], [address], [place], [address] , [place] - [facility] - [place] & [place] 2 11:22:10 Gastro-esopha geal reflux disease with ulceration 730021703 Active 2022 Yesenia Cameron [place], [place] - [facility] - [place] & [place] 3 14:13:22 Anxiety 31646941 Active 2022 Yesenia Cameron null, [place] [facility] [place] & [place] 3 14:13:43 Problem Notes None recorded. Procedures Surgical History Date Name Laterality Status Provider Name and Address Organization Details Recorded Time 2 Colonoscopy completed Jerrica Gay [place] - [facility] [place] 07/01/2022 10:47:12 0 Colonoscopy completed Jerrica Gay [place] - [facility] [place] 07/01/2022 10:46:11 9 partial resection of colon completed Jerrica Gay [place] - [facility] [place] 07/01/2022 10:45:43 9 Back Surgery completed Jerrica Gay [place] - [facility] & [place] 07/01/2022 10:44:48 7 repair of tendo achilles completed Jerrica Gay [place] - [facility] [place] 07/01/2022 10:44:34 Colonoscopy completed Rama ELIZONDO - [facility] & [place] 11/14/2023 11:08:32 Imaging Results Imaging Date Name Status LastModified by Organiz ation Details LastModified Time 10/20/2022 US RT upper quadrant completed [email or web address] [facility] (Radiology) [address] [place], [address], 10/26/2022 11:18:22 10/20/2022 US, abdomen, limited completed [email or web address] [place] [address] (Central Scheduling) [address] [place] [address] [place], [address], 10/21/2022 09:23:12 11/15/2022 XR, esophagram completed [email or web address] [facility] (Central Scheduling) [address] [place] [address] [place], [address], 11/25/2022 16:38:36 Procedure Notes None recorded. Medical [...] Updated DateTime 3 162.56 cm 33.3 kg/m2 56390.9 2 g 98.2 [degF] 98 % 98 % 86 /min Jerrica ELIZONDO - [facility] - [place] & [place] 3 09:33:01 Date Recorded Body height Body temperature Provider N john and Address Organization Details Last Updated DateTime 11/23/2022 162.56 cm 97.7 [degF] Yesenia ELIZONDO [facility] & [place] 11/23/2022 14:12:01 Date Recorded Body height Body mass index (BMI) Body weight Body temperature Oxygen saturation Oxygen saturation in Arterial blood by Pulse oximetry Heart rate Provider Name and Address Organization Details Last Updated DateTime 162.56 cm 35.2 kg/m2 88262.4 4 g 97 [degF] 98 % 98 % 88 /min Jerrica ELIZONDO [facility] & [place] 10:25:57 Social History Question Answer Notes LastModified by Organizat ion Details LastModified Time Tobacco Smoking Status [facility] [place] 07/01/2022 10:28:51 What Is Your Level Of Alcohol Consumption? None [email or web address] Information not available 07/01/2022 Do You Use Any Illicit Or Recreational Drugs? No Information not available 07/01/2022 Sex: Unknown Functional [...] available 06/30/2022 20:55:22 Medical History Condition Response GERD/Reflux Y Hypertension Y Gynecological HistoryNo gynecological history recorded. Obstetrics History GPAL:G 0 P 0 0 0 0 Past Encounters Encounter ID Performer Location Encounter Start Date Encounter Closed Date Diagnosis/Indication Diagnosis SNOMED-CT Code Diagnosis ICD10 Code Diagnosis Note [id number] Marissa Enriquez NP [address] [place] [address] 07/01/2022 10:05:29 07/01/2022 10:56:30 Upper abdominal pain 04261392 R10.10 5 month hx of upper abdominal pain occasional ly radiates to back. associated nausea and abdominal bloating. EGD reviewed from 09/2020 noting mild gastritis, negative H. pylori as well as reflux esophagiti s. Recommend continued use of PPI as prescribed . Recommend US RUQ to r/o biliary etiology. Plan for labs today. Nausea 816340550 R11.0 Plan for labs and US as above to further evaluate. Gastroesop hageal reflux disease 044642477 K21.9 Uncontroll ed symptoms with use of Pantoprazo le 40 mg daily. Recommend continued use of PPI and start Famotidine 40 mg po daily. recommend avoidance of food triggers as well as avoidance of eating 2-4 hours prior to lying down. History of colectomy 427 342914 Z90.49 s/p laparoscop ic total colectomy with [...] begin screening colonoscop y at age 20. [id number] RIA Alaniz [facility] [address] [place] [address] 10/26/2022 09:16:27 10/26/2022 13:53:04 Esophageal dysphagia 56033232 R13.19 RUQ US reviewed, demonstrat es fatty liver. ALT minimally elevated at 37. These are chronic findings per her report. She continues to struggle with abdominal bloating, pain. Also notes dysphagia. Recommend EGD to rule out PUD, worsening gastritis, obtain biopsies to r/o h. pylori. [id number] Michele Chavez Jr, MD [facility] [place] [address] 11/23/2022 13:50:23 11/23/2022 14:44:22 Simple renal cyst 64798221 N28.1 patient with a small simple right [...] Member ID Guarantor Name 07/01/2022 1 [facility] (MEDICAID HMO) Kala Perraut [id number] Kala Perraut 10/26/2022 1 [facility] (MEDICAID HMO) Kala Perraut [id number] Kala Perraut 11/23/2022 1 [facility] (MEDICAID HM) Kala Perraut [id number] Kala Perraut Notes Date Note Type Note [...] had a colonoscopy with Dr. Ruth at [facility] 12/29/2021 due to hx of hx of colon polyps, S/P colectomy 12/2018. Due for repeat colonoscopy in 2 years, 12/2023. Marissa Enriquez NP [address] [place] [address], [address], [place], [address], [place] - [facility] - [place] & [place] 07/01/2022 11:26:54 10/26/2022 text/html This is a [...] repeat colonoscopy in 2023. RIA Alaniz [address], [address], [place], [address], [facility] & [place] 10/26/2022 13:23:07 11/23/2022 text/html patient is a 37-year-old white female referred for recent incidental finding of a 1.4 x 1.1 simple right renal cyst. Patient has had some recent right upper quadrant pain necessitating the ultrasound. Patient does have a history of polyposis and underwent resection of 80% every: By report. Michele Chavez Jr, MD [address], [address], [place], [address], [facility] - [facility] & [place] 11/23/2022 16:10:19 OBGyn Episode No OBEpisode recorded.
[2025-01-20 15:06] VITALS: BMI 36.8
[2025-01-20 15:16] LABS: Microscopic, Urine URINE MICROSCOPIC (MICROSCOPIC)
[2025-01-20 15:23] LABS: Appearance,Urine CLEAR (Clear); Bilirubin,Urine Negative (Negative); Blood, Urine TRACE-I (Negative); Color,Urine YELLOW (Yellow); Glucose,Urine (UA) Negative (Negative); Ketones,Urine Negative (Negative); Leukocyte Esterase,Urine Negative (Negative); Nitrate,Urine Negative (Negative); Protein,Urine Negative (Negative); Urobilinogen,Urine 0.2 EU/dl (0.2)
[2025-01-20 15:33] VITALS: BP 123/74; PULSE 83; RESP 16; TEMP 37.2; O2SAT 99
[2025-01-20 16:17] LABS: Bacteria,Urine Trace /lpf
== END 2025-01-20 15:30 | disposition home or self-care (01) ==
LOC: OBOUT 14:59 → OB 14:59
PROVIDERS: PCP Nurse Practitioner; Visit Provider Nurse Practitioner Obstetrics & Gynecology
DX: O26.852 Spotting complicating pregnancy, second trimester (principal); Z3A.21 21 weeks gestation of pregnancy
CPT/HCPCS: 81001; G0463

== ENCOUNTER 2025-02-13 16:34 | Outpatient (CLI) | payer OTHER, SELFPAY ==
[2025-02-13 17:56] LABS: Basophils % 0.2 % (0.1-2.0); Eosinophils # 0.1 Kmm3 (0.0-0.4); Eosinophils % 0.9 % (0.1-12.0); Hematocrit 31.2 % (37.0-47.0); Hemoglobin 10.3 g/dL (12.2-16.2); Immature Granulocytes # 0.06 10^3uL; Immature Granulocytes % 0.4 %; Lymphocytes # 2.8 K/mm3 (0.7-4.5); Mean Corpuscular Hemoglobin 27.7 pg (27.0-31.2); Mean Corpuscular Volume 83.9 fl (81-99); Mean Platelet Volume 10.3 fl (7.4-10.4); Monocytes # 0.8 K/mm3 (0.1-1.0); Neutrophils # 10.1 K/mm3 (1.8-7.8); Neutrophils % 72.5 % (37.0-80.0); Nucleated Red Blood Cells # 0 10^3/uL; Nucleated Red Blood Cells % 0 %; Platelet Count 333 K/mm3 (142-424); Red Blood Count 3.72 M/mm3 (4.20-5.40); Red Cell Distribution Width 14.6 % (11.5-17.5); Red Cell Distribution Width-SD 44.5 fL
[2025-02-13 18:26] LABS: Albumin Level 3.4 g/dl (3.5-5.0); Chloride 106 mmol/L (98-107)
[2025-02-13 18:27] LABS: Sodium 135 mmol/L (136-145)
[2025-02-13 18:29] LABS: Alanine Aminotransferase 18 U/L (12-78); Aspartate Amino Transferase 23 U/L (14-36); Blood Urea Nitrogen 7 mg/dl (7-17); Carbon Dioxide 23 mmol/L (22.0-30.0); Estimated Glomerular Filt Rate 137 ml/min (>60); GFR (African American) 166 ML/MIN (>60)
[2025-02-13 18:30] LABS: Albumin/Globulin Ratio 1.2 (1.1-1.8); Alkaline Phosphatase 114 U/L (38-126); Bilirubin,Total 0.2 mg/dl (0.2-1.3); Calcium 8.7 mg/dl (8.4-10.2); Globulin 2.8 g/dL (1.3-3.2); Glucose 95 mg/dl (74-100); Total Protein,Serum 6.2 g/dl (6.3-8.2)
[2025-02-13 19:19] LABS: Uric Acid 2.9 mg/dl (2.5-6.2)
[2025-02-14 08:47] LABS: RPR W/RFX Titers Nonreactive (Nonreactive)
[2025-02-15 08:16] LABS: Varicella Zoster IgG Reactive (Non Reactive)
[2025-02-17 08:10] LABS: HSV-1 DNA Negative (Negative); HSV-2 DNA Negative (Negative)
[2025-02-17 15:16] LABS: Varicella-Zoster Ab, IgM <0.91 index (0.00-0.90)
== END 2025-02-13 23:59 | disposition home or self-care (01) ==
LOC: LAB 16:34
PROVIDERS: PCP Nurse Practitioner; Visit Provider Obstetrics & Gynecology
DX: O10.911 Unspecified pre-existing hypertension complicating pregnancy, first trimester (principal); O99.211 Obesity complicating pregnancy, first trimester; E66.9 Obesity, unspecified; Z3A.00 Weeks of gestation of pregnancy not specified
CPT/HCPCS: 36415; 80053; 84550; 85025; 86592; 86787; 87529

== ENCOUNTER 2025-03-01 12:36 | Outpatient (CLI) | payer OTHER, SELFPAY ==
--- OUTSIDE RECORDS SUMMARY | 2025-03-01 12:39 | XMS_ITS | Encounter Summary ---
Author Organization [facility] Address [address] [place] [address] Care Team Providers Care Teletype Or Varitype Keyboard Operator Name Role Phone Unavailable Primary Care Provider Unavailabl e Encounter Details Date Type Department Care Team (Late st Contact Info) Description 09/27/2018 Transcribed Document [facility] Family Medicine [address] [place] [address] ProviderChula MD [address] [place] [address] Social History Tobacco Use Types Packs/Day Years Used Date Smoking Tobacco: Never Assessed Comments Unknown Sex and Gender Information Value Date Recorded Sex Assigned at Female 03/15/2022 8:26 PM CDT Legal Sex Female 8:26 PM CDT Gender Identity Female 03/15/2022 8:26 PM CDT Sexual Orientation Not on file documented as of this encounter Miscellaneous Notes * Cerner Conversion Note - Historical ProviderMD - 09/27/2018 10:11 AM ACCOUNT REVIEW SPECIALIST PAT Adult Entered On: 09/27/2018 10:15 EST Performed On: 09/27/2018 10:11 EST by Veronica Marin RN Vital Measurements Temperature Source : Temporal artery scanning Temperature Mode : Fahrenheit Temperature, Fahrenheit : 98.6 Deg F Clinical Temperature, C : 37 Deg C Pulse Method : Non-Invasive BP Device Pulse Source : Brachial, Right Peripheral Pulse Rate : 85 bpm Pulse Rhythm : Regular Respiratory Rate : 20 Breaths/Min Blood Pressure Location : Arm, right upper Blood Pressure Source : Non-Invasive BP Device Blood Pressure Position : Sitting Systolic Blood Pressure : 136 mmHg Diastolic Blood Pressure : 77 mmHg Oxygen Saturation : 98 % Oxygen Therapy Mode : Room air Veronica Marin RN - 09/27/2018 10:11 EST Height and Weight, Clinical Dosing Height Source : Stated Height Entry Format : [place] Height, Feet : 5 ft(Converted to: 152 cm, 60 Inch) Height, Inches : 4 Inch(Converted to: 0 ft 4 Inch, 10.16 cm) Clinical Height : 162.56 cm Weight Source : Standing scale Weight Entry Format : [place] Clinical Dosing Weight : 88.18 kg Weight, Pounds : 194 lb Body Surface Area (BSA) : 1.93 m2 Body Mass Index : 33.4 kg/m2 (HI) [place] Body Weight : 54 kg Veronica Marin RN - 09/27/2018 10:11 EST Health Histories Smoking Status : Never (less than 100 in lifetime; none in last 30 days) Smokeless Tobacco Status : Never Veronica Marin RN - 09/27/2018 10:11 EST Social History (As Of: 09/27/2018 10:15:23 EST) Tobacco: Never (less than 100 in lifetime) Smoking Status. Never Smokeless Tobacco Status. (Last Updated: 09/27/2018 10:12:46 EST by Veronica Marin RN) Alcohol: Alcohol Use History No. Alcohol Use Frequency Socially. (Last Updated: 09/27/2018 10:12:46 EST by Veronica Marin RN) Substance Abuse: Drug Use Hx: No. (Last Updated: 09/27/2018 10:12:46 EST by Veronica Marin RN) Nutrition/Health: Regular (Last Updated: 09/27/2018 10:12:46 EST by Veronica Marin RN) Infectious Disease History Infectious Disease History : Chicken pox/Shingles, Influenza, MRSA Fever/Chills Last 48 Hours : No Travel To Regions with Travel Advisories : No Travel Outside [place] Within Last 30 Days : No Contact With Traveler to Advisory Region : No Tuberculosis Symptoms : None Veronica Marin RN - 09/27/2018 10:11 EST Anesthesia/Transfusion History Family History of Anesthesia Reaction : No prior transfusion(s) Transfusion History : Prior anesthesia without reaction Family History of Anesthesia Reaction : None Veronica Marin RN - 09/27/2018 10:11 EST Functional Assessment Functional ADL Evaluation Index EBN Bathing : Independent (2) Dressing : Independent (2) Toileting : Independent (2) Transferring Bed or Chair : Independent (2) Continence : Independent (2) Feeding : Independent (2) Veronica Marin RN - 09/27/2018 10:11 EST ADL Index Score : 12 Veronica Marin RN - 09/27/2018 10:11 EST Advance Directive Patient has Advance Directive *Q : No, patient refuses Advance Directive information Veronica Marin RN - 09/27/2018 10:11 EST Spiritual/Cultural Needs Significant Loss/Crisis in Past 3 Years : No Significant Distress/Coping/Need Support : No Any Spiritual/Cultural Needs or Requests : No Veronica Marin RN - 09/27/2018 10:11 EST Psychosocial History Do You Have a History of the Following? : Patient denies history Currently in Unsafe Situation : No Tried to Harm Yourself in the Past? : No Thoughts of Harming/Killing Yourself : No Veronica Marin RN - 09/27/2018 10:11 EST Teaching/Learning Assessment Barriers To Learning : None evident Individuals Taught : Patient Readiness to Learn : Cooperative Veronica Marin RN - 09/27/2018 10:11 EST Education Topics, Periop Preadmission Perioperative Education Grid Arrival Time/Place : Verbalizes understanding Infection Control : Verbalizes understanding NPO Status/Directions : Verbalizes understanding Preprocedure Preparations : Verbalizes understanding Preprocedure Tests/Labs : Verbalizes understanding Responsible Adult : Verbalizes understanding Take/Hold Medications Pre-Procedure : Verbalizes understanding Veronica Marin RN - 09/27/2018 10:11 EST General Info Want Family/Rep/Phys Notified of Admit : No Emergency Contact #1 : [place] Emergency Contact #1 Emergency Contact #1 Relationship : spouse Emergency Contact #2 : . Emergency Contact #2 Phone Number : . Emergency Contact #2 Relationship : . Information Obtained From : Patient Primary Language : Malian Preferred Communication Mode : Verbal Communication Barrier : None Veronica Marin RN - 09/27/2018 10:11 EST Emanuel Scale Emanuel Sensory Perception : No impairment Emanuel Moisture : Rarely moist Emanuel Activity : Walks occasionally Emanuel Mobility : No limitation Emanuel Nutrition : Adequate Emanuel Friction and Shear : No apparent problem Emanuel Score : 21 Veronica Marin RN - 09/27/2018 10:11 EST Sleep Apnea Risk Assmt Hx of Obstructive Sleep Apnea Diagnosis : No Snore Loudly : Yes Tired, Fatigued, or Sleepy During Day : No Observed Stopping Breathing During Sleep : No Have/Are Being Treated for Hypertension : No STOP Sleep Apnea Risk Level Score : 1 STOP Sleep Apnea Risk Level : Low BMI Greater Than 35 kg/m2 : No Age over 50 Years Old : No Gender Male : No Veronica Marin RN - 09/27/2018 10:11 EST Electronically signed by Shanika Koo Conversion Applied Marine Physics Professor Cerner at 01/06/2023 5:01 PM CDT documented in this encounter Plan of Treatment Not on file documented as of this encounter Visit Diagnoses Not on filedocumented in this encounter
--- OUTSIDE RECORDS SUMMARY | 2025-03-01 12:39 | XMS_ITS | Encounter Summary ---
Author Organization [facility] Address [address] [place] [address] Care Team Providers Care Assembler Liquid Center Name Role Phone Unavailable Primary Care Provider Unavailabl e Encounter Details Date Type Department Care Team (Late st Contact Info) Description 10/11/2018 Transcribed Document [facility] Family Medicine [facility] [place] [address] ProviderChula MD [address] [place], [place] [id number] Social History Tobacco Use Types Packs/Day Years Used Date Smoking Tobacco: Never Assessed Comments Unknown Sex and Gender Information Value Date Recorded Sex Assigned at Female 03/15/2022 8:26 PM CDT Legal Sex Female 8:26 PM CDT Gender Identity Female 03/15/2022 8:26 PM CDT Sexual Orientation Not on file documented as of this encounter Miscellaneous Notes * Cerner Conversion Note - Historical ProviderMD - 10/11/2018 8:12 AM PLASTERING SUPERVISOR Peripheral Nerve Block Entered On: 10/11/2018 8:13 EST Performed On: 10/11/2018 8:12 EST by Naa Alonso Nurse - other Peripheral Nerve Block Site Marked and Visible : Yes Peripheral Nerve Block Start Date/Time : 10/11/2018 7:45 EST Verbally Confirm Pt, Site, and Procedure : Yes Site Preparation : Chlorhexidine (Hibiclens) Peripheral Nerve Block : Supraclavicular Laterality : Left Peripheral Nerve Block Performed by : BERT ZAPIEN MD Medication Delivery Method : Single Shot Peripheral Nerve Block Assisted by : Naa Alonso Nurse - other Ultra sound used during insertion : Yes Nerve Block Activity, Patient Tolerance : Good Peripheral Nerve Block Comment : pre op nerve block per surgeon request Peripheral Nerve Block End Date/Time : 10/11/2018 8:00 EST Naa Alonso Nurse - other - 10/11/2018 8:12 EST Electronically signed by [facility], [facility] Conversion Ranch Supervisor Cerner at 01/06/2023 4:48 PM CDT documented in this encounter Plan of Treatment Not on file documented as of this encounter Visit Diagnoses Not on filedocumented in this encounter
--- OUTSIDE RECORDS SUMMARY | 2025-03-01 12:39 | XMS_ITS | Clinical Summary ---
Author Organization [employer] [facility] Address [address] [place] [address] Care Team Providers Care Track Laying Supervisor Name Role Phone Unavailable Primary Care Provider Unavailabl e Social History Tobacco Use Types Packs/Day Years Used Date Smoking Tobacco: Never Assessed Comments Unknown Sex and Gender Information Value Date Recorded Sex Assigned at Female 03/15/2022 8:26 PM CDT Legal Sex Female 8:26 PM CDT Gender Identity Female 03/15/2022 8:26 PM CDT Sexual Orientation Not on file Plan of Treatment Not on file
--- OUTSIDE RECORDS SUMMARY | 2025-03-01 12:39 | XMS_ITS | Encounter Summary ---
Author Organization [facility] Address [address] [place] [address] Care Team Providers Care Correctional Corporal Name Role Phone Unavailable Primary Care Provider Unavailabl e Encounter Details Date Type Department Care Team (Late st Contact Info) Description 10/11/2018 Transcribed Document [facility] Medicine [address] [place] [address] ProviderChula MD [address] [place] [address] Social History Tobacco Use Types Packs/Day Years Used Date Smoking Tobacco: Never Assessed Comments Unknown Sex and Gender Information Value Date Recorded Sex Assigned at Female 03/15/2022 8:26 PM CDT Legal Sex Female 8:26 PM CDT Gender Identity Female 03/15/2022 8:26 PM CDT Sexual Orientation Not on file documented as of this encounter Miscellaneous Notes * Cerner Conversion Note - Chula ProviderMD - 10/11/2018 8:13 AM MEDICAL OBSERVER POL[place] Main OR PreOp Summary Primary Physician: JUANY PRICE MD Finalized Date/Time: 10/11/18 10:17:21 Pt. Name: SHIVAM BERNARD D.O.B./Sex: 1985 Female Med Rec #: [id number] Physician: JUANY PRICE MD Financial #: [id number] Pt. Type: O Room/Bed: [facility] Admit/Disch: 10/11/18 04:54:00 - Institution: [facility] PreOp Case Times Entry 1 In Preop 10/11/18 05:30:00 Ready for Holding n/a Room Patient Ready for 10/11/18 06:47:00 Surgery Patient Out of Preop 10/11/18 07:35:00 Patient Out of n/a Holding Room Last Modified By: AISHA, CYNDI 10/11/18 10:17:20 SJE PreOp Case Times Audit 10/11/18 10:17:20 Roofing Layer: MANDOINMA Modifier: CATLETDD <+> 1 Patient Out of Preop 10/11/18 06:47:33 Roofing Layer: CRAINMA Modifier: CRAINMA <+> 1 Patient Ready for Surgery Finalized By: CYNDI LEONARD Document Signatures Signed By: CYNDI LEONARD 10/11/18 10:17 documented in this encounter Plan of Treatment Not on file documented as of this encounter Visit Diagnoses Not on filedocumented in this encounter
--- OUTSIDE RECORDS SUMMARY | 2025-03-01 12:39 | XMS_ITS | Encounter Summary ---
Author Organization [employer] [facility] Address [address] [place] [address] Care Team Providers Care Office Executive Name Role Phone Unavailable Primary Care Provider Unavailabl e Encounter Details Date Type Department Care Team (Late st Contact Info) Description 10/11/2018 Transcribed Document [facility] Medicine [address] [place] [address] ProviderChula MD [address] [place] [address] Social History Tobacco Use Types Packs/Day Years [...] Conversion Note - Historical ProviderMD - 10/11/2018 7:35 AM BOX TOE FLANGER STITCHDOWNS Event Note Entered On: 10/11/2018 7:37 EST Performed On: 10/11/2018 7:35 EST by Naa Alonso Nurse - other Event Note Event Date/Time : 10/11/2018 7:15 EST Event Location : Other: pre op Event Details : Change in condition Description of Event : IV VANCOMYCIN discontinued related to allergic reaction. approx 100ml infused prior to reaction Naa Alonso Nurse - other - 10/11/2018 7:35 EST documented in this encounter Plan of Treatment Not on file documented as of this encounter Visit Diagnoses Not on filedocumented in this encounter
--- OUTSIDE RECORDS SUMMARY | 2025-03-01 12:39 | XMS_ITS | Data Portability ---
Author Organization [facility] [place] Address [address] [place] [address] Care Team Providers Care Vp Marketing Name Role Phone CHEPE GARNER Primary Care Provider [phone] Assessment No assessment recorded. Plan of Treatment Reminders Order Date Submit Date Provider Last Modified By Organization Details Last Modified Time Details Appointments None recorded. Lab CBC w/ auto diff 2021 022 [email or web address] [id number] [facility] (Lab Registration) , [address] [place] [address] [place], [address], 16:56:45 CMP, serum or plasma 2021 022 4 [facility] (Lab Registration) , [address] [place] [address] [place], [address], 16:56:45 Referral None recorded. Procedures upper endoscopy procedure (EGD) (PROC) 2022 023 [email or web address] Not available 3 07:40:30 Surgeries None recorded. Imaging US, abdomen, limited 2021 022 [email or web address] 4 [facility] (Central Scheduling), [address] [place] [address] [place], [address], 10:57:34 Medication Orders famotidine 40 mg tablet 2021 022 [email or web address] Not available 14:46:54 Patient TargetsNo targets recorded. Patient InstructionsNo instructions recorded. Reason for Referral None Reported. Results Created Date Observation Date Name Description Value Unit Range Abnormal Flag Note LastModifiedBy Organization Detail LastModifiedTime 07/01/2007/01/2022 CBC W/ AUTO DIFF WBC 8.12 K/uL 4.5-11 .5 Not Available [facility] (Pre-Op Clinic) [address] [place] [address] [place], [address], 07/01/2022 12:13:16 07/01/2007/01/2022 CBC W/ AUTO DIFF RBC 5.45 M/uL 4.0-5. 4 high Not Available [facility] (Pre-Op Clinic) [address] [place] [address] [place], [address], 07/01/2022 12:13:16 07/01/2007/01/2022 CBC W/ AUTO DIFF HGB 15.8 g/dL 12.0-1 5.0 high Not Available [facility] (Pre-Op Clinic) [address] [place] [address] [place], [address], 07/01/2022 12:13:16 07/01/2007/01/2022 CBC W/ AUTO DIFF HCT 46.8 % 35-49 Not Available [facility] (Pre-Op Clinic) [address] [place] [address] [place], [address], 07/01/2022 12:13:16 07/01/2007/01/2022 CBC W/ AUTO DIFF MCV 85.9 fL 80.0-1 00.0 Not Available [facility] (Pre-Op Clinic) [address] [place] [address] [place], [address], 07/01/2022 12:13:16 07/01/2007/01/2022 CBC W/ AUTO DIFF MCH 29.0 pg 26.0-3 2.0 Not Available [facility] (Pre-Op Clinic) [address] [place] [address] [place], [address], 07/01/2022 12:13:16 07/01/2007/01/2022 CBC W/ AUTO DIFF MCHC 33.8 g/dL 32.0-3 6.0 Not Available [facility] (Pre-Op Clinic) [address] [facility] [place], [address], 07/01/2022 12:13:16 07/01/2007/01/2022 CBC W/ AUTO DIFF RDW 13.2 % 11.5-1 4.5 Not Available [facility] (Pre-Op Clinic) [address] [facility] [place], [address], 07/01/2022 12:13:16 07/01/2007/01/2022 CBC W/ AUTO DIFF platelet count 272 K/uL 142-42 4 Not Available [facility] (Pre-Op Clinic) [address] [place] [address] [place], [address], 07/01/2022 12:13:16 07/01/2007/01/2022 CBC W/ AUTO DIFF MPV 10.9 fL 6.8-10 .2 high Not Available [facility] (Pre-Op Clinic) [address] [place] [address] [place], [address], 07/01/2022 12:13:16 07/01/2007/01/2022 CBC W/ AUTO DIFF neutrophil % 57.6 % 50-70 Not Available [facility] (Pre-Op Clinic) [address] [place] [address] [place], [address], 07/01/2022 12:13:16 07/01/2007/01/2022 CBC W/ AUTO DIFF lymphocyte % 33.1 % 18.0-4 2.0 Not Available [facility] (Pre-Op Clinic) [address] [place] [address] [place], [address], 07/01/2022 12:13:16 07/01/2007/01/2022 CBC W/ AUTO DIFF monocyte % 7.4 % 2.0-11 .0 Not Available [facility] (Pre-Op Clinic) [address] [place] [address] [place], [address], 07/01/2022 12:13:16 07/01/20 22 07/01/2022 CBC W/ AUTO DIFF eosinophil % 1.0 % 1.0-3. 0 Not Available [facility] (Pre-Op Clinic) [address] [facility] [place], [address], 07/01/2022 12:13:16 07/01/20 22 07/01/2022 CBC W/ AUTO DIFF basophil % 0.7 % 0.0-2. 0 Not Available [facility] (Pre-Op Clinic) [address] [place] [address] [place], [address], 07/01/2022 12:13:16 07/01/2007/01/2022 CBC W/ AUTO DIFF immature granulocytes % 0.2 % 0.0-0. 8 Not Available [facility] (Pre-Op Clinic) [address] [place] [address] [place], [address], 07/01/2022 12:13:16 07/01/20 22 07/01/2022 CBC W/ AUTO DIFF nucleated red blood cells % 0.0 % Not Available [facility] (Pre-Op Clinic) [address] [place] [address] [place], [address], 07/01/2022 12:13:16 07/01/20 22 07/01/2022 CBC W/ AUTO DIFF neutrophil # 4.67 K/uL Not Available [facility] (Pre-Op Clinic) [address] [place] [address] [place], [address], 07/01/2022 12:13:16 07/01/20 22 07/01/2022 CBC W/ AUTO DIFF lymphocyte # 2.69 K/uL Not Available [facility] (Pre-Op Clinic) [address] [place] [address] [place], [address], 07/01/2022 12:13:16 07/01/20 22 07/01/2022 CBC W/ AUTO DIFF monocyte # 0.60 K/uL Not Available [facility] (Pre-Op Clinic) [address] [place] [address] [place], [address], 07/01/2022 12:13:16 07/01/20 22 07/01/2022 CBC W/ AUTO DIFF eosinophil # 0.08 K/uL Not Available [facility] (Pre-Op Clinic) [address] [place] [address] [place], [address], 07/01/2022 12:13:16 07/01/20 22 07/01/2022 CBC W/ AUTO DIFF basophil # 0.06 K/uL Not Available [facility] (Pre-Op Clinic) [address] [place] [address] [place], [address], 07/01/2022 12:13:16 07/01/20 22 07/01/2022 CBC W/ AUTO DIFF immature gramulocytes # 0.02 K/uL Not Available [facility] (Pre-Op Clinic) [address] [place] [address] [place], [address], 07/01/2022 12:13:16 07/01/20 22 07/01/2022 CBC W/ AUTO DIFF nucleated red blood cells # 0.00 k/uL Not Available [facility] (Pre-Op Clinic) [address] [place] [address] [place], [address], 07/01/2022 12:13:16 07/01/20 22 07/01/2022 CBC W/ AUTO DIFF manual differential NO Not Available [facility] (Pre-Op Clinic) [address] [place] [address] [place], [address], 07/01/2022 12:13:16 07/01/2007/01/2022 CBC W/ AUTO DIFF note Unles s other hernandez noted testi ng perfo [facility]med at[facility] [address] [place] [address] Sergio camacho MD Not Available [facility] (Pre-Op Clinic) [address] [place] [address] [place], [address], 07/01/2022 12:13:16 07/01/2007/01/2022 COMP METAB OLIC PANEL sodium 143 mmol/ L 137-14 7 Not Available [facility] (Pre-Op Clinic) [address] [facility] [place], [address], 07/01/2022 12:46:39 07/01/2007/01/2022 COMP METAB OLIC PANEL potassium 4.2 mmol/ L 3.5-5. 1 Not Available [facility] (Pre-Op Clinic) [address] [facility], [address], 07/01/2022 12:46:39 07/01/2007/01/2022 COMP METAB OLIC PANEL chloride 107 mmol/ L 98-110 Not Available [facility] (Pre-Op Clinic) [address] [facility] [place], [address], 07/01/2022 12:46:39 07/01/2007/01/2022 COMP METAB OLIC PANEL carbon dioxide 23 mmol/ L 21-30 Not Available [facility] (Pre-Op Clinic) [address] [facility], [address], 07/01/2022 12:46:39 07/01/20 22 07/01/2022 COMP METAB OLIC PANEL anion gap 13 mmol/ L 6-14 Not Available [facility] (Pre-Op Clinic) [address] [facility], [address], 07/01/2022 12:46:39 07/01/20 22 07/01/2022 COMP METAB OLIC PANEL glucose 88 mg/dL 70-115 Not Available [facility] (Pre-Op Clinic) [address] [facility], [address], 07/01/2022 12:46:39 07/01/20 22 07/01/2022 COMP METAB OLIC PANEL BUN 7 mg/dL 7-17 Not Available [facility] (Pre-Op Clinic) [address] [place] [address] [place], [address], 07/01/2022 12:46:39 07/01/20 22 07/01/2022 COMP METAB OLIC PANEL creatinine 0.7 mg/dL 0.5-1. 5 Not Available [facility] (Pre-Op Clinic) [address] [place] [address] [place], [address], 07/01/2022 12:46:39 07/01/20 22 07/01/2022 COMP METAB OLIC PANEL BUN/creatini ne ratio 10 ratio 10-20 Not Available [facility] (Pre-Op Clinic) [address] [place] [address] [place], [address], 07/01/2022 12:46:39 07/01/20 22 07/01/2022 COMP METAB OLIC PANEL glom filtration rate 100 mL/mi n >60- Not Available [facility] (Pre-Op Clinic) [address] [place] [address] [place], [address], 07/01/2022 12:46:39 07/01/20 22 07/01/2022 COMP METAB OLIC PANEL osmolality (calculated) 295 mosmo l/kg 275-30 1 OSMOL ALITY IS A CALCU LATIO N UTILI ZING THE SERUM /PLAS MA SODIU M, GLUCO SE AND UREA NITRO GEN (BUN) LEVEL S. FOR THE MOST ACCUR ATE RESUL T A MEASU RED SERUM OSMOL ALITY IS SUGGE STED. Not Available [facility] (Pre-Op Clinic) [address] [place] [address] [place], [address], 07/01/2022 12:46:39 07/01/20 22 07/01/2022 COMP METAB OLIC PANEL total protein 8.6 g/dL 6.2-8. 2 high Not Available [facility] (Pre-Op Clinic) [address] [place] [address] [place], [address], 07/01/2022 12:46:39 07/01/20 22 07/01/2022 COMP METAB OLIC PANEL albumin 5.0 g/dL 3.5-5. 0 Not Available [facility] (Pre-Op Clinic) [address] [place] [address] [place], [address], 07/01/2022 12:46:39 07/01/2007/01/2022 COMP METAB OLIC PANEL calcium 9.3 mg/dL 8.5-10 .8 Not Available [facility] (Pre-Op Clinic) [address] [place] [address] [place], [address], 07/01/2022 12:46:39 07/01/2007/01/2022 COMP METAB OLIC PANEL bilirubin total 1.2 mg/dL 0.2-1. 3 Not Available [facility] (Pre-Op Clinic) [address] [place] [address] [place], [address], 07/01/2022 12:46:39 07/01/2007/01/2022 COMP METAB OLIC PANEL AST (SGOT) 34 IU/L 14-36 Not Available [facility] (Pre-Op Clinic) [address] [place] [address] [place], [address], 07/01/2022 12:46:39 07/01/2007/01/2022 COMP METAB OLIC PANEL ALT (SGPT) 37 IU/L 0-35 high Pleas e note new refer ence inter juan j for ALT. Due to a recen t manuf actur er metho dolog y mcintyre e, the refer ence inter juan j for ALT is lower effec tive January 07, 2021. Not Available [facility] (Pre-Op Clinic) [address] [place] [address] [place], [address], 07/01/2022 12:46:39 07/01/2007/01/2022 COMP METAB OLIC PANEL alk phosphatase 98 IU/L 38-126 Not Available [facility] (Pre-Op Clinic) [address] [place] [address] [place], [address], 07/01/2022 12:46:39 07/01/2007/01/2022 COMP METAB OLIC PANEL note Unles s other hernandez noted testi ng perfo [facility]med at: [facility] [address] [place] [address] Sergio camacho MD Not Available [facility] (Pre-Op Clinic) [address] [place] [address] [place], [address], 07/01/2022 12:46:39 11/04/19 23 11/04/2022 URINE PREGN DEBORAH TEST urine test NEGATI VE negati ve Not Available [facility] (Lab Registration) [address] [place], [address], 11/04/2022 08:57:24 11/04/19 23 11/04/2022 URINE PREGN DEBORAH TEST internal control PASS PASS Not Available [facility] (Lab Registration) [address] [place], [address], 11/04/2022 08:57:24 11/04/19 23 11/04/2022 URINE PREGN DEBORAH TEST note Unles s other hernandez noted testi ng perfo rmed at: [facility] [address] [place] [address] [phone] Sergio camacho MD CLIA: [id number] Not Available [facility] (Lab Registration) [address] [place], [address], 11/04/2022 08:57:24 11/01/19 24 11/01/2023 URINE PREGN DEBORAH TEST urine test NEGATI VE negati ve Not Available [facility] (Lab Registration) [address] [place], [address], 11/01/2023 09:10:22 11/01/19 24 11/01/2023 URINE PREGN DEBORAH TEST internal control PASS PASS Not Available [facility] (Lab Registration) [address] [place], [address], 11/01/2023 09:10:22 11/01/19 24 11/01/2023 URINE PREGN DEBORAH TEST note Unles s other hernandez noted testi ng perfo rmed at: [facility] [address] [place] [address] [phone] Sergio camacho MD CLIA: [id number] Not Available [facility] (Lab Registration) [address] [place], [address], 11/01/2023 09:10:22 10/20/19 23 10/20/2022 US RT upper quadr ant [facility] [address] [place] [address] Phone: Fax: Name: ANGIE SELLERS Exam Date: 10/20/19 : 985 Age 37 Gender : F Access ion: [id number] Physic ramírez: MANDI ENRIQUEZ Facili ty: [facility] Facili ty HSV: Outpat ient Exam: US [...] [facility] Legall y authen ticate d by LUIS Montes MD 10-20 12:11: 59 CC'ed Logic: Paz wade Provid er: DEEPIKA Tsai CC Provid er: PATSY LEONE BASHIR Attend ing Provid er: DEEPIKA Tsai Referr ing Provid er: DEEPIKA Tsai Admitt ing Provid er: DEEPIKA Tsai [facility] (Radiology) [address] [place], [address], 10/26/2022 11:18:22 10/20/19 23 10/20/2022 US, abdom en, limit ed No observ ation record ed. [address] (Central Scheduling) [address] [place] [address] , [place], [address], 10/21/2022 09:23:12 11/15/19 23 11/15/2022 XR, honorio mauro [facility] [address] [place] [address] (Phone ) LOUISEO GUS Montes REPORT ------ ------ ------ ------ ------ ------ ------ ------ ----- Mariia diaz Name: ANGIE SELLERS No: [id number] 6 Medica l Record No: [id number] Date of : 1984 Access ion No: [id number] Date of Exam: 2022 Mariia diaz [...] Zuniga MD Transc ribed by RIA Song Authdelia ticate d and Electr onical ly Signed by Josseline Zuniga MD on 2022 04:05: 28 PM KRISTIAN Mosley CC'ed Logic: Orderi ng Provid er: FRANCISCO Adrian CC Provid er: ALEJANDRO ALEXANDER Attend ing Provid er: FRANCISCO JUARES Y Referr ing Provid er: FRANCISCO Adrian Admitt ing Provid er: FRANCISCO Adrian [email or web address] [facility] (Central Scheduling) [address] [place] [address], [address], 11/25/2022 16:38:36 Result Notes Documentation Provider Name and Address Organization Details Recorded Time Xr, [employer] : [address] [address] (Phone) DIAGNOSTIC IMAGING REPORT Patient Name: SHIVAM BERNARD Patient No: [id number] Date of : 1985 Accession No: [id number] Date of Exam: 11/15/2022 Patient Type: Outpatient Ordering Physician: CLINTON WARREN FINAL REPORT PROCEDURE: BARIUM SWALLOW CLINICAL HISTORY: r10.13 epigastric pain COMPARISON: None FINDINGS: PROCEDURE: The patient ingested thick and thin barium contrast. Spot and overhead films were performed. A total of 14 images were saved. FINDINGS: There is a small to moderate hiatal hernia identified. There is esophageal dysmotility noted. There is significant gastroesophageal reflux demonstrated to the proximal esophagus. A 13 mm barium tablet passes easily through the esophagus and into the stomach. RADIATION DOSE: 55.75 mGy IMPRESSION: Mild to moderate hiatal hernia. Significant gastroesophageal reflux. Esophageal dysmotility. Reviewed, Interpreted and Dictated by Josseline Zuniga MD Transcribed by RIA Muir Authenticated and ERN CC'ed Logic: Ordering Provider: KELVIN ALONZO CC Provider: RENA ALEXANDER Attending Provider: KELVIN ALONZO Referring Provider: KELVIN ALONZO Admitting Provider: KELVIN [place], [place] [facility] [place] 11/25/2022 16:38:36 Problems Name Problem SNOMED Code Status Onset Date Resolution Date Notes Provider Name and Address Organization Details Recorded Time Hypertensive disorder 41789197 Active 2021 Jerrica [place], [place] - [facility] [place] & [place] 2 10:28:03 Gastroesophag eal reflux disease 485365490 Active 2021 Jerrica [place], [place] [facility] [place] 2 10:28:01 Upper abdominal pain 50227992 Active 2021 Marissa Enriquez NP [address] [facility], [address], [place], [address] , [place] [facility] [place] 2 11:22:10 Nausea 668055844 Active 2021 Marissa Enriquez NP [address] [facility], [address], [address] , [place] - [place] & [place] 2 11:22:10 Gastro-esopha geal reflux disease with ulceration 822281733 Active 2022 Yesenia farrell, [place] [facility] - [place] & [place] 3 14:13:22 Anxiety 51271752 Active 2022 Yseenia farrell, [place] [facility] & [place] 3 14:13:43 Problem Notes None recorded. Procedures Surgical History Date Name Laterality Status Provider Name and Address Organization Details Recorded Time 2 Colonoscopy completed Jerrica ANTONY [facility] & [place] 07/01/2022 10:47:12 0 Colonoscopy completed Jerrica ANTONY [facility] & [place] 07/01/2022 10:46:11 9 partial resection of colon completed Jerrica ANTONY [facility] & [place] 07/01/2022 10:45:43 9 Back Surgery completed Jerrica ANTONY [facility] & [place] 07/01/2022 10:44:48 7 repair of tendo achilles completed Jerrica ANTONY [facility] & [place] 07/01/2022 10:44:34 Colonoscopy completed Ramamike ANTONY [facility] & [place] 11/14/2023 11:08:32 Imaging Results None recorded. Procedure Notes None recorded. Medical Equipment None [...] Updated DateTime 3 162.56 cm 33.3 kg/m2 74614.9 2 g 98.2 [degF] 98 % 98 % 86 /min Jerrica Gay [facility] & [place] 3 09:33:01 Date Recorded Body height Body temperature Provider N john and Address Organization Details Last Updated DateTime 11/23/2022 162.56 cm 97.7 [degF] Yesenia Barnes [facility] & [place] 11/23/2022 14:12:01 Date Recorded Body height Body mass index (BMI) Body weight Body temperature Oxygen saturation Oxygen saturation in Arterial blood by Pulse oximetry Heart rate Provider Name and Address Organization Details Last Updated DateTime 2 162.56 cm 35.2 kg/m2 72152.4 4 g 97 [degF] 98 % 98 % 88 /min Jerrica Gay [facility] & [place] 2 10:25:57 Social History None recorded. Functional Status Question Answer Note LastModified by Organizat ion Details LastModified Time Do you use any illicit or recreational drugs? No [email or web address] Information not available 07/01/2022 What is your level of alcohol consumption? None [email or web address] Information not available 07/01/2022 Mental Status None recorded. Family History Relationship [...] SNOMED-CT Code Diagnosis ICD10 Code Diagnosis Note [id number] Marissa Enriquez NP [address] [place] [address] 07/01/2022 10:05:29 07/01/2022 10:56:30 Upper abdominal pain 94697132 R10.10 5 month hx of upper abdominal pain occasional ly radiates to back. associated nausea and abdominal bloating. EGD reviewed from 09/2020 noting mild gastritis, negative H. pylori as well as reflux esophagiti s. Recommend continued use of PPI as prescribed . Recommend US RUQ to r/o biliary etiology. Plan for labs today. Nausea [id number] R11.0 Plan for labs and US as above to further evaluate. Gastroesop hageal reflux disease 761016166 K21.9 Uncontroll ed symptoms with use of Pantoprazo le 40 mg daily. Recommend continued use of PPI and start Famotidine 40 mg po daily. recommend avoidance of food triggers as well as avoidance of eating 2-4 hours prior to lying down. History of colectomy 427 168087 Z90.49 s/p laparoscop ic total colectomy with [...] begin screening colonoscop y at age 20. [id number] RIA Alaniz [facility] [address] [place], [place] [address]Alisia [place] [address] 10/26/2022 09:16:27 10/26/2022 13:53:04 Esophageal dysphagia 37087965 R13.19 RUQ US reviewed, demonstrat es fatty liver. ALT minimally elevated at 37. These are chronic findings per her report. She continues to struggle with abdominal bloating, pain. Also notes dysphagia. Recommend EGD to rule out PUD, worsening gastritis, obtain biopsies to r/o h. pylori. [id number] Michele Chavez Jr, MD [facility]rology [address] [address] 11/23/2022 13:50:23 11/23/2022 14:44:22 Simple renal cyst 73718046 N28.1 patient with a small simple right [...] Recorded Advance Directives Directive None Recorded Payers Insurance Date Sequence Insurance Name Policy Number Policy Estevez Covered Member ID Estevez Member ID Guarantor Name 04/06/2024 1 AENA [facility] (MEDICAID HMO) Shivam Bernard [id number] Shivam Bernard Notes Date Note Type Note Provider Name [...] had a colonoscopy with Dr. Ruth at [facility] 12/29/2021 due to hx of hx of colon polyps, S/P colectomy 12/2018. Due for repeat colonoscopy in 2 years, 12/2023. Marissa Enriquez NP [address] [facility], [address], [place], [address], [facility] & [place] 07/01/2022 11:26:54 10/26/2022 text/html This is a 37-year-old female who is seen today in follow up for abdominal pain and bloating. She is seen today in follow up with [facility]. Her complaint today is abdominal bloating that occurs with most meals. Upper abdominal pain occurs occasionally. She does note some difficulty with swallowing. Denies nausea or vomiting. Her last EGD was 09/2020 which demonstrated mild gastritis and chronic reflux esophagitis. She has a history of colectomy in 2019 at and is due for repeat colonoscopy in 2023. RIA Alaniz [address] [facility], [address], [place], [address], [place] - [facility] & [place] 10/26/2022 13:23:07 11/23/2022 text/html patient is a 37-year-old white female referred for recent incidental finding of a 1.4 x 1.1 simple right renal cyst. Patient has had some recent right upper quadrant pain necessitating the ultrasound. Patient does have a history of polyposis and underwent resection of 80% every: By report. Michele Chavez Jr, MD [address] [facility], [address], [place], [address], [place] - [facility] & [place] 11/23/2022 16:10:19 OBGyn Episode No OBEpisode recorded.
--- OUTSIDE RECORDS SUMMARY | 2025-03-01 12:39 | XMS_ITS | Encounter Summary ---
Author Organization [employer] Address [address] [place] [id number] Care Team Providers Care Communications Officer Name Role Phone Unavailable Primary Care Provider Unavailabl e Encounter Details Date Type Department Care Team (Late st Contact Info) Description 10/11/2018 Transcribed Document [facility] Family Medicine [address] [place] [address] ProviderChula MD [address] [place] [address] Social History Tobacco Use Types [...] - [place] ProviderMD - 10/11/2018 8:13 AM [employer]ATION[employer] [place] Main OR IntraOp Summary Primary Physician: JUANY PRIEC MD Finalized Date/Time: 10/11/18 09:39:55 Pt. Name: JOANA SHIVAMBEBETO Acevedo D.O.B./Sex: 1985 Female Med Rec #: [id number] Physician: JUANY PRICE MD Financial #: [id number] Pt. Type: O Room/Bed: [facility]/ Admit/Disch: 10/11/18 04:54:00 - Institution: [facility] [place] IntraOp Case Attendance Entry 1 Entry 2 Entry 3 Case Attendee JUANY PRICE MD BRUNNER, RICHARD V, Chelsey Bran, Rn-Surgery Role Performed Surgeon/Proceduralist, BETTING AGENCY COUNTER CLERK/Nurse Cad Designer Tool Sharpener, First First Time In 10/11/18 07:39:00 10/11/18 07:39:00 10/11/18 07:39:00 Time Out 10/11/18 09:18:00 10/11/18 09:33:00 10/11/18 09:33:00 Procedure Lumbar Microdiscectomy Lumbar Microdiscectomy Lumbar Microdiscectomy Other Attendee Superficial Wound Closed By: Last Modified By: Chelsey Mae Demike, Cynthia Y, Demike, Cynthia Y, Rn-Surgery 10/11/18 Rn-Surgery 10/11/18 Rn-Surgery 10/11/18 09:33:47 09:33:47 09:33:47 Entry 4 Entry 5 Entry 6 Case Attendee TONYA AYON LAUREL, PA-C BRUNER, HAVEN Role Performed Scrub, First Physician acquisitions assistant Acid Recovery Operator Time In 10/11/18 07:39:00 10/11/18 07:39:00 10/11/18 07:39:00 Time Out 10/11/18 09:33:00 10/11/18 09:33:00 10/11/18 09:33:00 Procedure Lumbar Microdiscectomy Lumbar Microdiscectomy Lumbar Microdiscectomy Other Attendee Superficial Wound Closed By: Last Modified By: Chelsey Mae Demike, Cynthia Y, Demike, Cynthia Y, Rn-Surgery 10/11/18 Rn-Surgery 10/11/18 Rn-Surgery 10/11/18 09:33:47 09:33:47 09:33:47 Entry 7 Entry 8 Case Attendee FABIAN CRUZ, RN [facility] [address] Role Performed Tool Sharpener, Second Scrub, Second Time In 10/11/18 08:48:00 10/11/18 09:02:00 Time Out 10/11/18 09:02:00 10/11/18 09:33:00 Procedure Lumbar Microdiscectomy Lumbar Microdiscectomy Other Attendee Superficial Wound Closed By: Last Modified By: Chelsey Mae Demike, Cynthia Y, Rn-Surgery 10/11/18 Rn-Surgery 10/11/18 09:33:47 09:33:47 [facility] IntraOp Case Attendance Audit 10/11/18 09:33:[address] Magistrate: [id number] Modifier: [id number] 1 <*> Procedure Lumbar Microdiscectomy 2 <+> Time Out 2 <*> Procedure Lumbar Microdiscectomy 3 <+> Time Out 3 <*> Procedure Lumbar Microdiscectomy 4 <+> Time Out 4 <*> Procedure Lumbar Microdiscectomy 5 <+> Time Out 5 <*> Procedure Lumbar Microdiscectomy 6 <+> Time Out 6 <*> Procedure Lumbar Microdiscectomy 7 <*> Procedure Lumbar Microdiscectomy 8 <+> Time Out 8 <*> Procedure Lumbar Microdiscectomy 10/11/18 09:21:[address] Magistrate: [id number] Modifier: [id number] 1 <+> Time Out 1 <*> Procedure Lumbar Microdiscectomy 10/11/18 09:04:[address] Magistrate: [id number] Modifier: [id number] <+> 1 Procedure 2 <*> Procedure Lumbar Microdiscectomy 3 <*> Procedure Lumbar Microdiscectomy 4 <*> Procedure Lumbar Microdiscectomy 5 <*> Procedure Lumbar Microdiscectomy 6 <*> Procedure Lumbar Microdiscectomy 7 <*> Procedure Lumbar Microdiscectomy 8 <*> Procedure Lumbar Microdiscectomy 10/11/18 09:04:[address] Magistrate: [id number] Modifier: [id number] <+> 7 Case Attendee <+> 7 Role Performed <+> 7 Time In <+> 7 Time Out <+> 7 Procedure <+> 8 Case Attendee <+> 8 Role Performed <+> 8 Time In <+> 8 Procedure 10/11/18 08:29:[address] Magistrate: [id number] Modifier: [id number] 2 <*> Procedure Lumbar Microdiscectomy 3 <*> Procedure Lumbar Microdiscectomy 4 <*> Procedure Lumbar Microdiscectomy 5 <*> Procedure Lumbar Microdiscectomy 6 <+> Time In 6 <*> Procedure Lumbar Microdiscectomy 10/11/18 08:24:[address] Magistrate: [id number] Modifier: [id number] 2 <*> Procedure Lumbar Microdiscectomy 3 <*> Procedure Lumbar Microdiscectomy 4 <*> Procedure Lumbar Microdiscectomy 5 <+> Time In 5 <*> Procedure Lumbar Microdiscectomy <+> 6 Case Attendee <+> 6 Role Performed <+> 6 Procedure 10/11/18 08:13:[address] Magistrate: [id number] Modifier: [id number] <+> 1 Time In 2 <+> Time In 2 <*> Procedure Lumbar Microdiscectomy 3 <+> Time In 3 <*> Procedure Lumbar Microdiscectomy 4 <+> Time In 4 <*> Procedure Lumbar Microdiscectomy <+> 5 Case Attendee <+> 5 Role Performed <+> 5 Procedure [facility] IntraOp Case Times Entry 1 Patient In Room Time 10/11/18 07:39:00 Out Room Time 10/11/18 09:33:00 Anesthesia Start Time 10/11/18 07:39:00 Stop Time 10/11/18 09:33:00 Anesthesia Ready 10/11/18 07:39:00 Surgery / Procedure Times Start Time 10/11/18 08:13:00 Stop Time 10/11/18 09:28:00 Last Modified By: Chelsey Mae Rn-Surgery 10/11/18 09:33:44 [facility] IntraOp Case Times Audit 10/11/18 09:33:[address] Magistrate: [id number] Modifier: [id number] <+> 1 Out Room Time <+> 1 Stop Time 10/11/18 09:33:[address] Magistrate: [id number] Modifier: [id number] <+> 1 Stop Time 10/11/18 08:13:[address] Magistrate: [id number] Modifier: [id number] <+> 1 Start Time [facility] IntraOp Cautery Entry 1 ESU Identification Cautery Type Monopolar ESU ID Number [id number] ID Type Hospital Number Cautery Settings Cut Setting 35 Coag Setting 35 Bipolar Setting 20 ESU Grounding Pad Ground Pad Type Adult Grounding Pad Site Right thigh Grounding Pad Chelsey Mae, Applied By Rn-Surgery Grounding Pad Site Intact Skin Condition Before Cautery Grounding Pad Site Unchanged Skin Condition After Cautery Last Modified By: Chelsey Mae, Rn-Surgery 10/11/18 08:35:57 [facility] IntraOp Cautery Audit 10/11/18 08:35:[address] Magistrate: [id number] Modifier: [id number] 1 <*> Grounding Pad Site Right Lower Abdomen 1 <+> ID Number [facility] IntraOp Communication Entry 1 Communication To Family/Significant other Communication By Chelsey Mae Rn-Surgery Date and Time 10/11/18 08:25:00 Last Modified By: Chelsey Mae Rn-Surgery 10/11/18 08:25:43 [facility] IntraOp Counts Verification Entry 1 Procedure Lumbar Microdiscectomy Count Info Count Type Sponge Counts Verification Baseline/pre-procedure Sequence Counts Performed By Count Performed By TONYA AYON (Scrub) Count Performed By Chelsey Mae (RN) Rn-Surgery Last Modified By: Chelsey Mae Rn-Surgery 10/11/18 08:25:59 [facility] IntraOp Counts Final Entry 1 Procedure Lumbar Microdiscectomy Final Count Info Count Type Sponge, Sharps Counts Verification Skin Closure/end of Sequence procedure Count Results Correct, surgeon notified Counts Performed By Count Performed By Cruz Huertas ST (Scrub) Count Performed By Chelsey Mae, (RN) Rn-Surgery Last Modified By: Chelsey Mae Rn-Surgery 10/11/18 09:21:17 [facility] IntraOp Counts Final Audit 10/11/18 09:21:[address] Magistrate: [id number] Modifier: [id number] 1 <*> Procedure Lumbar Microdiscectomy 1 <+> Counts Verification Sequence [facility] IntraOp Delays Entry 1 Delay Reason Room not ready Duration 9 Minute(s) Last Modified By: Chelsey Mae Rn-Surgery 10/11/18 08:26:18 [facility] IntraOp Departure from OR Entry 1 Integumentary Assessment Integumentary WDL Assessment WDL Transfer/Handoff Transfer to PACU Phase I Handoff Method Bedside/Face to face Post-op Transport Stretcher/Gurney Via Patient Transport Chelsey Mae, Accompanied by Rn-Surgery, CARLTON HARKINS CRNA Last Modified By: Chelsey Mae, Rn-Surgery 10/11/18 09:33:33 [facility] IntraOp Dressing and Packing Entry 1 Type Dressing Location OPSITE Wound Dressing Item Skin Closure Glue, Occlusive dressing Applied By GERALD MERIDA PA-C Other Comments DERMABOND CAROL Last Modified By: Chelsey Mae, Rn-Surgery 10/11/18 08:26:38 [facility] IntraOp Fire Risk Assessment Entry 1 Fire Info Surgical Site or 0- No Incision Above the Xyphoid Open O2 Source 0- No (Mask or Cannula) Available Ignition 1- Yes (ESU, Laser, Light Source) Fire Risk 1 Assessment Score Fire Score Fire Risk Yes Assessment Complete Fire Risk Chelsey Mae, Assessment Verified Rn-Surgery By Fire Risk 10/11/18 07:15:00 Assessment Verified Date/Time Fire Risk Standard Fire Yes Safety Precautions Followed Last Modified By: Chelsey Mae Rn-Surgery 10/11/18 08:26:46 [facility] IntraOp General Case Screw Machine Hand 1 Case Information OR OR 01 SJE Case Level 1 Room Verified Yes Wound Class I - Clean Specialty SN Neurosurgery Anesthesia Type General ASA Class 2 Diagnosis Preop Diagnosis LOW BACK PAIN Postop Same As Preop Yes Postop Diagnosis LOW BACK PAIN Last Modified By: Chelsey Mae Rn-Surgery 10/11/18 08:28:51 [facility] IntraOp Intraoperative Assessment Entry 1 Valid History / Yes Physical in Chart Preoperative Yes Checklist Reviewed/Evaluated Allergies Reviewed Yes Patient is Latex No Sensitive Isolation Not applicable Precautions Noted Level of WDL Consciousness (WDL = Alert, Oriented to Person, Place, and Time) Skin Assessment Yes Verified Present Upon IVs Arrival to OR Last Modified By: Chelsey Mae Rn-Surgery 10/11/18 08:31:45 [facility] IntraOp Intraoperative Equipment Entry 1 Type Equipment Equipment Equipment Petty Suction System Intraop Monitoring Antiembolic Devices Antiembolic Devices Sequential compression device, knee high Antiembolic Device Bilateral Location Scopes Photo/Video Documentation Photo No Video No Last Modified By: Chelsey Mae Rn-Surgery 10/11/18 08:29:18 [facility] IntraOp Medication Admin Entry 1 Entry 2 Entry 3 Medication/Irrigant Depo-Medrol 80 mg Avitene 1Gm powder - Marcaine 0.25% 30ml [id number] vial - [id number] Combo Med List Time Administered Route of INJECTION Administration Dose Dose 80 1 30 Unit of Measure mg gram ml Volume QS Administered By JUANY PRICE MD RICE, JAMES, MD RICE, JAMES, MD Procedure Irrigation Irrigant Volume In Irrigant Volume Out Last Modified By: Chelsey Mae, Chelsey Mae, Chelsey Mae, Rn-Surgery 10/11/18 Rn-Surgery 10/11/18 Rn-Surgery 10/11/18 08:31:09 08:31:09 08:31:09 [facility] IntraOp Patient Positioning Entry 1 Procedure Lumbar Microdiscectomy Body Position Prone Left Arm Position Secured on padded arm board Right Arm Position Secured on padded arm board Left Leg Position Uncrossed, parallel Right Leg Position Uncrossed, parallel Feet Uncrossed Yes Pressure Points Yes Checked Positioning Devices Arm Board, Pillows, Baldev Frame, Pad, Elbow, Nikolai Table, Head Rest Device Position SAFETY STRAP ACROSS THIGHS; PILLOWS UNDER LOWER LEGS; PRONEVIEW HEAD REST; 1010 ACROSS BUTTOCK BEFORE PREP Positioned By Chelsey Mae, Rn-Surgery, CARLTON HARKINS V, FUAD RIVERA LAUREL, PA-C Position Verified Positioning Yes Verified by Anesthesia Positioning Yes Verified by Surgeon Last Modified By: Chelsey Mae Rn-Surgery 10/11/18 08:31:32 [facility] IntraOp Sign In Entry 1 Patient, Site, Yes Procedure Identified Surgical Consent Yes Confirmed Relevant Surgical Yes Documents Available Surgical Site Yes Marked by person performing procedure Anesthesia Machine Yes Check Completed Medication Checks Yes Completed Allergies Yes Airway Difficult No Airway/Aspiration Risk Difficult Yes Airway/Aspiration Intervention Equipment Available Blood Loss Risk No Blood Loss No Intervention Equipment Prepared and Ready Blood Identifiers Not applicable Verified Per Policy Hypothermia Risk Yes Warming Measures Yes Taken Last Modified By: Chelsey Mae Rn-Surgery 10/11/18 08:29:31 [facility] Intra Op Sign Out Entry 1 RN Confirmation Surgical Yes Procedure(s) Identified Instrument, Sponge Yes and Sharps Counts Correct/Documented Equipment Problems N/A Documented Specimen Labeled Yes Correctly Urinary Catheter N/A Documented in IView Trjeo Patient Yes Recovery Concerns Reviewed with Anesthesia Provider, Surgeon and RN Trejo Patient Yes Management Concerns Reviewed with Anesthesia Provider, Surgeon and RN Safety Checklist Yes Elements Complete? RN Sign Out Chelsey Mae, Signature Rn-Surgery RN Sign Out 10/11/18 09:39:00 Signature Date/Time Plan of Care Outcome - Fire Risk OUTCOME STATEMENT: Goal met Patient is free from injury related to surgical fire Plan of Care Outcome - Pt Positioning OUTCOME STATEMENT: Goal met Absence of signs and symptoms of positioning injury. Plan of Care Outcome - Skin Prep OUTCOME STATEMENT: Goal met Intraoperative care is consistent with measures to prevent infection Plan of Care Outcome - Xray/Images OUTCOME STATEMENT: Goal met Absence of observable signs or symptoms of radiation injury Plan of Care Outcome - Counts OUTCOME STATEMENT: Goal met Absence of signs and symptoms of injury related to extraneous objects Last Modified By: Chelsey Mae Rn-Surgery 10/11/18 09:39:50 [facility] Intra Op Sign Out Audit 10/11/18 09:39:[address] Magistrate: [id number] Modifier: [id number] <+> 1 RN Sign Out Signature Date/Time <+> 1 Urinary Catheter Documented in [place] [facility] IntraOp Skin Prep Entry 1 Procedure Lumbar Microdiscectomy Prescribed Yes Pre-Surgical Prep Completed Prep Area LOWER BACK Intraop Prep Integumentary WDL Assessment WDL Prep Agents Chloraprep Prep by Chelsey Mae, Rn-Surgery Hair Removal Methods No hair removal performed Last Modified By: Chelsey Mae Rn-Surgery 10/11/18 08:29:13 [facility] IntraOp Surgical Procedures Entry 1 Procedure Lumbar Microdiscectomy Additional RIGHT L5-S1 Procedure MICRODISCECTOMY Description Primary Procedure Yes Primary Surgeon JUANY PRICE MD Start 10/11/18 08:13:00 Stop 10/11/18 09:28:00 Anesthesia Type General Specialty SN Neurosurgery Wound Class I - Clean Last Modified By: Chelsey Mae Rn-Surgery 10/11/18 09:33:24 [facility] IntraOp Surgical Procedures Audit 10/11/18 09:33:[address] Magistrate: [id number] Modifier: [id number] 1 <*> Procedure Lumbar Microdiscectomy 1 <+> Stop 10/11/18 09:21:[address] Magistrate: [id number] Modifier: [id number] 1 <*> Procedure Lumbar Microdiscectomy 1 <+> Specialty 10/11/18 09:04:[address] Magistrate: [id number] Modifier: [id number] <+> 1 Primary Procedure <+> 1 Primary Surgeon <+> 1 Start <+> 1 Wound Class <+> 1 Anesthesia Type <+> 1 Additional Procedure Description [facility] IntraOp Temp Regulation Devices Entry 1 Temp Regulation Temperature Forced Air Warming Regulation Device device Temperature Upper body Regulation Site Temperature Device 43 Setting Temperature CARLTON HARKINS CRNA Regulation Device Applied by Last Modified By: Chelsey Mae Rn-Surgery 10/11/18 08:31:58 [facility] IntraOp Time Out Entry 1 Procedure to be Lumbar Microdiscectomy Performed Time Out Time Out Pause Time 10/11/18 08:11:00 All activity Yes suspended (unless life threatening emergency) Team Verbally Correct patient Confirms Information identity, Correct side and site are marked, Consent form is present and accurate, Agreement on the procedure to be done, Correct patient position, Relevant images/results properly labeled/appropriately displayed, Confirm antibiotics have been administered, Confirm the skin prep has dried, Confirm prosthesis/implant/devic e is present, Performed in location of procedure after prepped/draped Antibiotic Yes Prophylaxis Administered Or In Progress Within the Last 60 Minutes Beta Htalia N/A Administered Venous Yes Thromboembolism Prophylaxis Required Anticipated Critical Events Surgeon None expected Anesthesia Provider None expected Nursing Assures Sterility of instruments, Implant Availability Essential Imaging Yes Labeled and Displayed Last Modified By: Chelsey Mae Rn-Surgery 10/11/18 08:33:51 [facility] IntraOp Time Out Audit 10/11/18 08:33:[address] Magistrate: [id number] Modifier: [id number] 1 <+> Beta Thalia Administered 1 <+> Venous Thromboembolism Prophylaxis Required 1 <+> Antibiotic Prophylaxis Administered Or In Progress Within the Last 60 Minutes 1 <+> Surgeon 1 <+> Anesthesia Provider 1 <+> Nursing Assures 1 <+> Essential Imaging Labeled and Displayed 1 <*> Procedure to be Performed Lumbar Microdiscectomy 1 <+> Team Verbally Confirms Information [facility] IntraOp X-Ray and Images Entry 1 X-Ray/Imaging Type Fluoroscopy Fluoroscopy Type C-Arm Protective Devices Yes Used Last Modified By: Chelsey Mae Rn-Surgery 10/11/18 08:32:07 Case Comments <None> Finalized By: Chelsey Mae, Rn-Surgery Document Signatures Signed By: Chelsey Mae Rn-Surgery 10/11/18 09:39 Electronically signed by [facility] Conversion Candy Decorator Cerner at 01/06/2023 4:42 PM CDT documented in this encounter Plan of Treatment Not on file documented as of this encounter Visit Diagnoses Not on filedocumented in this encounter
--- OUTSIDE RECORDS SUMMARY | 2025-03-01 12:39 | XMS_ITS | Clinical Summary ---
Author Organization [facility] Address [address] [place] [address] Care Team Providers Care Paper Control Clerk Name Role Phone Rosemary Fuller Primary Care Provider [phone] Allergies No known active allergies Medications famotidine (Pepcid) 40 MG tablet Take 40 mg by mouth 1 (one) time each day. 2 Active buPROPion SR (Wellbutrin SR) 100 MG 12 hr tablet Take 100 mg by mouth 2 (two) times a day. 2 Active hydrOXYzine HCl (Atarax) 10 MG tablet TAKE 1 TABLET BY MOUTH EVERY SIX HOURS NEEDED 1 Active sertraline (Zoloft) 50 MG tablet Take 50 mg by mouth 1 (one) time each day. 2 Active 28-0.8 MG tablet 3 Active labetalol (Normodyne) 200 MG tabletIndications:E ssential hypertension Take 1 tablet (200 mg) by mouth 2 (two) times a day. 60 tablet 11 4 Active ondansetron ODT (Zofran-ODT) 4 MG disintegrating tablet Take 1 tablet (4 mg) by mouth every 8 (eight) hours if needed for nausea or vomiting. 20 tablet 2 4 Active Active Problems Problem Noted Date Diagnosed Date Depression 12/05/2023 Anxiety 12/05/2023 Second degree hemorrhoids 11/01/2023 Myopia, bilateral 08/29/2023 Type 2 diabetes mellitus without complications 1 10/30/2022 Cyst of kidney, acquired 12/30/2022 Diaphragmatic hernia without obstruction or gang darshan 12/30/2022 Essential (primary) hypertension 12/19/2022 Gastro-esophageal reflux disease without esophag itis 12/19/2022 Polycystic ovarian syndrome 12/19/2022 Other ovarian cyst, left side 12/05/2022 Thyroid enlarged 03/11/2019 Pelvic floor dysfunction 02/13/2019 Immunizations Immunization Administration Dates Next Due Influenza, Injectable, MDCK, trivalent, PF 07/20 Influenza, injectable, MDCK, preservative free, quadrivalent 07/20/2018,07/06/2017 Influenza, injectable, quadrivalent, preservativ e free 07/02/2015 Influenza, seasonal, injectable 06/06/2013 Tdap 09/12/2013 Family History Medical History Relation Name Comments Heart disease Father No Known Problems Father's Brother 1 No Known Problems Father's Brother 2 Heart attack Maternal Grandfather Diabetes Maternal Grandmother COPD Mother Melanoma Mother COPD Mother's Sister 1 No Known Problems Mother's Sister 2 Thyroid cancer Other No Known Problems Paternal Grandfather Dementia Paternal Grandmother Diabetes Paternal Grandmother Heart attack Paternal Grandmother Heart disease Paternal Grandmother Stroke Paternal Grandmother Thyroid cancer Sister 1 FH: thyroid c ancer Thyroid cancer Sister 2 No Known Problems Sister 3 No Known Problems Son 1 No Known Problems Son 2 Relation Name Status Comments Father Father's Brother 1 Alive Father's Brother 2 Maternal Grandfather Maternal Grandmother Mother Alive Mother's Sister 1 Alive Mother's Sister 2 Alive Other Paternal Grandfather Paternal Grandmother Alive Sister 1 Alive Sister 2 Alive Sister 3 Alive Son 1 Alive Son 2 Alive Social History Tobacco Use Types Packs/Day Years Used Date Smoking Tobacco: Never Smokeless Tobacco: Never Tobacco Cessation:Counseling Given: Not Answered Alcohol Use Standard Drinks/Week Comments Not Currently 0 (1 standard drink = 0.6 oz pur e alcohol) PHQ-2 Answer Date Recorded Patient Health Questionnaire-2 Score 0 01/04/2024 Comments No Sex and Gender Information Value Date Recorded Sex Assigned at Not on file Legal Sex Female 8:42 PM EDT Gender Identity Not on file Sexual Orientation Not on file Last Filed Vital Signs Vital Sign Reading Time Taken Comments Blood Pressure 118/76 01/04/2024 2:33 PM EDT Pulse 83 12/05/2023 10:52 AM EDT Temperature 36.8 C (98.3 F) 12/05/2023 10:52 AM EDT Respiratory Rate 14 12/05/2023 10:52 AM EDT Oxygen Saturation 99% 12/05/2023 10:52 AM EDT Inhaled Oxygen Concentration - - Weight 91 kg (200 lb 9.9 oz) 01/04/2024 2:33 PM EDT Height 162.6 cm (5' 4 ) 12/05/2023 10:52 AM EDT Body Mass Index 34.44 12/05/2023 10:52 AM EDT Plan of Treatment Health Maintenance Due Date Last Done Comments [facility]-HIV Screening 1985 [facility]-Hepatitis C Screening 1985 [facility]-/Child/Adol SDOH Screenings 1985 Diabetes: Dental Exam 1995 [facility]-Varicella Vaccines (1 of 2 - 13+ 2-dose series) 1998 HPV Vaccines (1 - 3-dose series) 2000 [facility]- SDOH Screenings 2003 [facility]-Adult SDOH Screenings 2003 [facility]-Hepatitis B Vaccines (1 of 3 - 19+ 3-dose series) 2004 [facility]-Pneumococcal Vaccine: Pediatrics (0 to 5 Years) and At-Risk Patients (6 to 49 Years) (1 of 2 - PCV) 2004 [facility]-Pap Smear 2006 [facility]-Cervical Cancer Screening 2015 [facility]-HPV/Cotest 2015 [facility]-Diabetes: Hemoglobin A1C 07/15/2019 01/15/2019 [facility]-DTaP,Tdap,and Td Vaccines (2 - Td or Tdap) 09/12/2023 09/12/2013 Colonoscopy 12/29/2023 12/29/2021, 11/13/2019 [id number] Vaccine ( - season) 2024 [facility]-Depression Screening 01/03/2025 01/04/2024 [facility]-Influenza Vaccine (Season Ended) 2025 07/20/2018, 07/06/2017, 07/20/2016, Additional history exists [facility]-Zoster Vaccines (1 of 2) 2035 [facility]-Obesity Intervention Completed 024, 12/28/2023, 12/19/2023, Additional history exists [facility]-HIB Vaccines Aged Out No longer e ligible based on patient's age to complete this topic [facility]-Hepatitis A Vaccines Aged Out No longer eligible based on patient's age to complete this topic [facility]-IPV Vaccines Aged Out No longer e ligible based on patient's age to complete this topic [facility]-Rotavirus Vaccines Aged Out No lo nger eligible based on patient's age to complete this topic Procedures Procedure Name Priority Date/Time Associated Diagnosis Comments COLONOSCOPY Routine 12/29/2021 9:56 AM EDT Malignant neoplasm of colon, unspecified part of colon (CMS/HCC) HEMOGLOBIN A1C Routine 01/15/2019 10:56 AM EDT from Last 3 Months or Most Recently Relevant to Health Maintenance Results * Colonoscopy (12/29/2021 9:56 AM EDT) Anatomical Region Laterality Modality Endoscopy Narrative 12/29/2021 10:00 AM EDT Impression Overall Impression: s/p subtotal colectomy with ileosigmoid anastomosis for polyposis. No polyps on exam today. Recommendation Repeat screening colonoscopy in 2 years Indication Personal History Polyps Medications See anesthesia record for anesthesia administered medications. Staff Staff Role Janett Gonzalez RN Endo Nurse Roberto Carlos Davis CRNA ASSISTANT PROFESSOR IN FAMILY STUDIES, No role selected Kell Carrera RN Endo Nurse Mady Alvarez Endo Nurse James Morales MD Anesthesiologist MD Daniel Dinero MD Proceduralist Supercharge Repair Supervisor Unknown Endo Nurse 1 Endo Nurse Preprocedure A history and physical has been performed, and patient medication allergies have been reviewed. The patient's tolerance of previous anesthesia has been reviewed. The risks and benefits of the procedure and the sedation options and risks were discussed with the patient. All questions were answered and informed consent obtained. Details of the Procedure The patient underwent monitored anesthesia care, which was administered by an anesthesia professional. The patient's blood pressure, heart rate, level of consciousness, respirations, oxygen, ECG and ETCO2 were monitored throughout the procedure. A digital rectal exam was performed. A perianal exam was performed. The scope was introduced through the anus advanced to the site of the anastomosis. Retroflexion was performed in the rectum. The quality of bowel preparation was evaluated using the [place] Bowel Preparation Scale with scores of: right colon = not assessed, transverse colon = not assessed, left colon = 3. The total BBPS score was 3. Bowel prep was adequate. The patient experienced no blood loss. The procedure was not difficult. The patient tolerated the procedure well. There were no apparent complications. She is s/p subtotal colectomy with ileosigmoid anastomosis. Attestation I was present for the entire procedure Events Procedure Events Event Event Time ENDO SCOPE IN TIME 12/29/2021 9:47 AM ENDO SCOPE OUT TIME 12/29/2021 9:53 AM Specimens No specimens were documented in this log. Findings Healthy [id number] ileocolonic anastomosis with no bleeding The rectum appeared normal. Rectum normal on retroflexion All observed locations appeared normal. Normal digital rectal examination without masses. us Faith Ruth MD GI PROCEDURE ORDERABLES Final R esult * Hemoglobin A1c (01/15/2019 10:56 AM EDT) Hemoglobin A1c 5.0 4.7 - 6.0 % [facility] Comment: Glycohemoglobin Reference Range, 0 years and up: 4.7 to 6.0% . HA1C Interpretive Data: Diagnosis of Diabetes: Diabetic > or = 6.5% Pre-diabetic 5.7 to 6.4% Non-diabetic < or = 5.6% . Glycemic Targets for Type I and Type II Diabetics: Non- Adults <7.0% Adults <6.0% Children and Adolescents <7.5% . Source: [place] Diabetes [employer]. Standards of medical care in diabetes, 2017. Diabetes Care.2017:40 (suppl 1):S1-S135. . HbA1c assay performed by an ion-exchange chromatography method that is certified traceable to the DCCT. 01/15/2019 10:5 6 AM EDT 01/15/2019 12:16 PM EDT us Faith Ruth MD LAB BLOOD ORDERABLES Final Resu lt [facility]QUEST from Last 3 Months or Most Recently Relevant to Health Maintenance Insurance [facility] MEDICAID Care Teams Paper Control Clerk Relationship Specialty Start Date End Date Rosemary Fuller PA [address] [place] [address] PCP - General 01/29/21
--- OUTSIDE RECORDS SUMMARY | 2025-03-01 12:39 | XMS_ITS | Encounter Summary ---
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 POSTOPERATIVE DIAGNOSIS(ES): Right L5-S1 herniated nucleus pulposus. PROCEDURE: Right L5-S1 microdiscectomy, CPT code-62740. SURGEON: Chase Recinos MD TRACKMAN: Benjy. COMPLICATIONS: None. SPECIMENS: None. IMPLANTS: None. ESTIMATED BLOOD LOSS: 25 mL. DESCRIPTION OF PROCEDURE: Patient was identified in the holding area at Psychiatric, transferred to the operative room under the care of myself and Anesthesia staff. Patient was placed supine on the bed where general anesthesia was induced. Once she was intubated and tube was secured, she was flipped into prone position on the Nikolai table with Baldev frame. All bony prominences were well-padded. We performed a time-out to ensure the correct patient, procedure, and levels being done. We then turned our attention towards the incision. A 2 cm incision was made to the right at L5-S1. Soft tissue dissection was carried down in line with the incision until the dorsal lumbar fascia was reached and divided in line with the incision. We then sequentially dilated up through the paraspinal muscle on the right side at L5-S1 and placed a 7 cm x 22 mm tubular retractor on the right L5-S1 interspace. Then, turned our attention towards decompression. Inferior 3 mm of the L5 lamina was removed with high-speed drill and Kerrison rongeur. We then removed the ligamentum flavum with curettes and Kerrison rongeur. The S1 nerve root was identified as it was elevated significantly off the floor of the canal secondary to a very large herniated nucleus pulposus. We retracted the nerve to midline and made a stab incision into the disc space. We were able to decompress the majority of the herniated nucleus pulposus with pituitary rongeur; however, there was still residual calcified disc around the initial incision that still was elevating the S1 nerve root off the floor. We then took reverse angled curettes and with pituitary rongeur was able to remove the calcified portion of the disc that was underneath the S1 nerve root. Once this was done, the canal floor was flattened and there was no significant herniation. Several passes were taken of the disc space proper to make sure there was no free fragments. Once this was done, we then copiously irrigated the wound. We stopped obvious bleeding with bipolar electrocautery and placed Avitene and steroid directly onto the nerve root for anti-inflammatory hemostasis purposes. We then closed the wound in layered fashion. The patient tolerated the procedure well. Chase Recinos M.D. Dict: 10/11/2018 09:28:30 Trans: 10/11/2018 14:33:16 CC1: Chase Recinos M.D. documented in this encounter Plan of Treatment Not on file documented as of this encounter Visit Diagnoses Not on filedocumented in this encounter
--- OUTSIDE RECORDS SUMMARY | 2025-03-01 12:39 | XMS_ITS | Encounter Summary ---
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 Adult Entered On: 10/11/2018 6:47 EST Performed On: 10/11/2018 6:33 EST by Naa Alonso Nurse - denise Height and Weight, Clinical Dosing Height Source : Stated Height Entry Format : [place] Height, Feet : 5 ft(Converted to: 152 cm, 60 Inch) Height, Inches : 4 Inch(Converted to: 0 ft 4 Inch, 10.16 cm) Clinical Height : 162.56 cm Weight Source : Standing scale Weight Entry Format : [place] Clinical Dosing Weight : 87.73 kg Weight, Pounds : 193 lb Body Surface Area (BSA) : 1.93 m2 Body Mass Index : 33.2 kg/m2 (HI) [place] Body Weight : 54 kg Naa Alonso Nurse - other - 10/11/2018 6:33 EST Health Histories Smoking Status : Never (less than 100 in lifetime; none in last 30 days) Smokeless Tobacco Status : Never Naa Alonso Nurse - other - 10/11/2018 6:33 EST Social History (As Of: 10/11/2018 06:47:27 EST) Tobacco: Never (less than 100 in lifetime) Smoking Status. Never Smokeless Tobacco Status. (Last Updated: 09/27/2018 10:12:46 EST by Veronica Marin, JUSTINA) Alcohol: Alcohol Use History No. Alcohol Use Frequency Socially. (Last Updated: 09/27/2018 10:12:46 EST by Veronica Marin, JUSTINA) Substance Abuse: Drug Use Hx: No. (Last Updated: 09/27/2018 10:12:46 EST by Veronica Marin, JUSTINA) Nutrition/Health: Regular (Last Updated: 09/27/2018 10:12:46 EST by Veronica Marin RN) Infectious Disease History Infectious Disease History : Chicken pox/Shingles, Influenza, MRSA Fever/Chills Last 48 Hours : No Travel To Regions with Travel Advisories : No Travel Outside [place] Within Last 30 Days : No Contact With Traveler to Advisory Region : No Tuberculosis Symptoms : None Naa Alonso Nurse - other - 10/11/2018 6:33 EST Anesthesia/Transfusion History Family History of Anesthesia Reaction : No prior transfusion(s) Blood Transfusion Acceptable to Patient : No Transfusion History : Prior anesthesia without reaction Family History of Anesthesia Reaction : None Naa Alonso Nurse - other - 10/11/2018 6:33 EST Functional Assessment Living Situation : Home Patient Lives With : Spouse Current Home Treatments : None Naa Alonso Nurse - other - 10/11/2018 6:33 EST Psychosocial History Do You Have a History of the Following? : Patient denies history Currently in Unsafe Situation : No Tried to Harm Yourself in the Past? : No Thoughts of Harming/Killing Yourself : No Naa Alonso Nurse - other - 10/11/2018 6:33 EST Advance Directive Patient has Advance Directive *Q : No, patient refuses Advance Directive information Naa Alonso Nurse - other - 10/11/2018 6:33 EST Spiritual/Cultural Needs Significant Loss/Crisis in Past 3 Years : No Significant Distress/Coping/Need Support : No Any Spiritual/Cultural Needs or Requests : No Naa Alonso Nurse - other - 10/11/2018 6:33 EST Teaching/Learning Assessment Barriers To Learning : None evident Naa Alonso Nurse - other - 10/11/2018 6:33 EST General Info Want Family/Rep/Phys Notified of Admit : No Emergency Contact #1 : Arnol Emergency Contact #1 Emergency Contact #1 Relationship : spouse Emergency Contact #2 : . Emergency Contact #2 Phone Number : . Emergency Contact #2 Relationship : . Information Obtained From : Patient Primary Language : Cook Islander Preferred Communication Mode : Verbal Communication Barrier : None Naa Alonso Nurse - other - 10/11/2018 6:33 EST Sleep Apnea Risk Assmt Hx of [...] Old : No Gender Male : No Naa Alonso Nurse - other - 10/11/2018 6:33 EST Emanuel Scale Emanuel Sensory Perception : No impairment Emanuel Moisture : Rarely moist Emanuel Activity : Walks frequently Emanuel Mobility : No limitation Emanuel Nutrition : Excellent Emanuel Friction and Shear : No apparent problem Emanuel Score : 23 Naa Alonso Nurse - other - 10/11/2018 6:33 EST Oxygen Therapy Oxygen Therapy Mode : Room air Naa Alonso Nurse - other - 10/11/2018 6:33 EST Pain Assessment Pain Assessment : Initial assessment Pain Scale Used : 0-10 Scale Location : Back, lower Naa Alonso Nurse - other - 10/11/2018 6:33 EST Fall Risk Scales ABCs Fall Injury Risk Identification : Surgery ABC Fall Injury Risk : Moderate to high injury risk VERAS Hx Falls Immediate/Within 3 Months : No Veras Secondary Diagnosis : No VERAS Use of Ambulatory Aid : None VERAS IV Therapy or IV Access : Yes Veras Gait/Transferring : Normal, bedrest, immobile Veras Mental Status : Oriented to own ability Veras Fall Risk Score : 20 VERAS Fall Scale Risk Level : 0-24 Low Risk Lyman Fall Interventions : Adequate lighting, Call device within reach, Wheels locked Naa Alonso Nurse - denies - 10/11/2018 6:33 EST Fall Risk Education Grid Night Light Use : Verbalizes understanding Nonskid Footwear Use : Verbalizes understanding Siderails use/risks : Verbalizes understanding Naa Alonso Nurse - denise - 10/11/2018 6:33 EST Barriers to Learning : None evident Naa Alonso Nurse - denise - 10/11/2018 6:33 EST Education Topics, Day of Surgery DayofSurgery Education Grid Incentive Spirometry : Verbalizes understanding Infection Control : Verbalizes understanding Infection Risks : Verbalizes understanding IV's : Verbalizes understanding Medication Instructions : Verbalizes understanding Pain Management : Verbalizes understanding Plan of Care : Verbalizes understanding Respiratory Care : Verbalizes understanding Responsible Adult : Verbalizes understanding Naa Alonso Nurse - other - 10/11/2018 6:33 EST Valuables and Belongings Valuables and Belongings : Clothing Clothing : Common streetwear Clothing Disposition : With family Naa Alonso Nurse - other - 10/11/2018 6:33 EST Pain Scale Intensity : 4 Naa Alonso Nurse - other - 10/11/2018 6:33 EST Image 4 - Images currently included in the form version of this document have not been included in the text rendition version of the form. documented in this encounter Plan of Treatment Not on file documented as of this encounter Visit Diagnoses Not on filedocumented in this encounter
--- OUTSIDE RECORDS SUMMARY | 2025-03-01 12:39 | XMS_ITS | Referral Summary ---
Author Organization [employer] [facility] Address [address] [place] [address] Care Team Providers Care Day Habilitation Specialist Name Role Phone Unavailable Primary Care Provider [...]
--- OUTSIDE RECORDS SUMMARY | 2025-03-01 12:39 | XMS_ITS | Encounter Summary ---
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 Name: SHIVAM BERNARD D.O.B./Sex: 1985 Female Med Rec #: [id number] Physician: JUANY PRICE MD Financial #: [id number] Pt. Type: O Room/Bed: [facility] Admit/Disch: 10/11/18 04:54:00 - Institution: [facility] PostOp Case Times Entry 1 In PACU II 10/11/18 11:36:00 Ready for PACU II 10/11/18 13:44:00 Discharge Discharge from PACU 10/11/18 13:44:00 II Last Modified By: LeannaElba mcnamara Rn 10/11/18 13:49:17 [facility] PostOp Case Times Audit 10/11/18 13:49:17 Manager Risk Management: STEPH Modifier: STEPH <+> 1 Ready for PACU II Discharge <+> 1 Discharge from PACU II Finalized By: Elba Ram, Rn Document Signatures Signed By: Elba Ram Rn 10/11/18 13:49 Electronically signed by Hanane [facility] Conversion Grey Percher Cerner at 01/06/2023 5:02 PM CDT documented in this encounter Plan of Treatment Not on file documented as of this encounter Visit Diagnoses Not on filedocumented in this encounter
--- OUTSIDE RECORDS SUMMARY | 2025-03-01 12:39 | XMS_ITS | Encounter Summary ---
Author Organization [employer] Address [address] [place] [address] Care Team Providers Care Department Clinician Name Role Phone Unavailable Primary Care Provider Unavailabl e Encounter Details Date Type Department Care Team (Late st Contact Info) Description 09/27/2018 Transcribed Document [facility] [place] [facility] [place] [address] ProviderChula MD [address] [place] [address] Social History Tobacco Use Types [...] Conversion Note - Historical ProviderMD - 09/27/2018 10:30 AM TEACHER HOME THERAPY Patient: SHIVAM BERNARD Age: 33 Years Sex: Female : 1985 Chief Complaint Low Back Pain PCP Rosemary Recinos History of Present Illness This patient is a pleasant 33 yo WF who presents with low back pain. The pain has been going on for 4 years but has gotten progressively worse. She describes it as a dull ache. It is now to the point that it is affecting her ADLs. She has tried NSAIDs, PT and injections without relief of her pain. She has not fallen. She has not used an assistive device. She saw Dr Recinos who evaluated her and she was offered a right L5/S1 Microdiscectomy and agreed to the procedure. Pt denies a h/o DVT/PE. No trouble with anesthesia in the past. No respiratory conditions including COPD/JULIA/asthma. Review of Systems Constitutional: Neg for fevers or chills. Eyes: Neg for blurry vision or change in vision. ENT: Neg for sore throat, ear pain, or dizziness. Cardiac: Neg for chest pain or dyspnea on exertion. Respiratory: Neg for shortness of breath. Gastrointestinal: Neg for nausea, vomiting, diarrhea, or constipation. Musculoskeletal: Pos for low back pain. Neurologic: Neg for headaches or seizures. Psychiatric: Neg for anxiety and depression. Integumentary: Neg for rash. Physical Exam Vitals & Measurements T: 37 ??C HR: 85 (Peripheral) RR: 20 BP: 136/77 SpO2: 98% HT: 162.56 cm WT: 88.18 kg BMI: 33.4 Constitutional: This is a pleasant 33 yo WF in no acute distress. HEENT: Normocephalic, atraumatic. PEERLA. Extraocular muscles intact. Conjunctiva pink without exudate. Oropharynx pink and moist. Neck supple. No JVD. Cardiac: SI, S2. RRR. No M/R/G. Respiratory: Lungs CTA bilaterally. No wheezes, rales, or rhonchi. Abdomen: Soft, nontender, nondistended. Active bowel sounds. No visible masses. Musculoskeletal: Bilateral LE without clubbing, cyanosis or edema. Integumentary: Skin is pink, warm and dry. No rashes. Neurologic: CN II-XII grossly intact. Psychiatric: Judgment and affect appropriate. Assessment/Plan 1. Preoperative Evaluation- Low Back Pain: Proceed with surgery as scheduled with Dr Recinos on 10/11/2018. Pt underwent preoperative laboratory workup and diagnostic studies. 2. Diabetes Mellitus- FSBS and SSI. 3. GERD- Continue Prevacid. Problem List/Past Medical History Chronic constipation GERD (gastroesophageal reflux disease) IBS (irritable bowel syndrome) Insulin resistance Historical No historical problems Procedure/Surgical History right foot tendon repair and spur removal. Medications Home Linzess 145 mcg oral capsule, 145 mcg, 1 Cap, Oral, Daily metFORMIN 500 mg oral tablet, 500 mg, 1 Tab, Oral, Daily Neurontin 600 mg oral tablet, 600 mg, 1 Tab, Oral, TID Prevacid, 15 mg, Oral, Daily Allergies No Known Medication Allergies Social History Alcohol Alcohol Use History No. Alcohol Use Frequency Socially. Nutrition/Health Regular Substance Abuse Drug Use Hx: No. Tobacco Never (less than 100 in lifetime) Smoking Status. Never Smokeless Tobacco Status. Family History Pt mother is alive with a h/o Skin Cancer. Pt father is alive with a h/o Congenital Heart Disease. Lab Results CBC Results (Current Encounter/Past 24 Hours) WBC 6.5 K/uL 09/27/2018 12:47 Hct 43.2 % 09/27/2018 12:47 Hgb 14.4 Gram/dL 09/27/2018 12:47 Platelet Count 282 K/uL 09/27/2018 12:47 CMP Results (Current Encounter/Past 24 Hours) Bun/Creatinine 15.3 09/27/2018 12:56 Creatinine Level 0.72 mg/dL 09/27/2018 12:56 eGFR >60 mL/min/1.73m2 09/27/2018 12:56 eGFR NonAfrican >60 mL/min/1.73m2 09/27/2018 12:56 Sodium Level 141 mmol/L 09/27/2018 12:56 Potassium Level 3.8 mmol/L 09/27/2018 12:56 Chloride Level 105 mmol/L 09/27/2018 12:56 Carbon Dioxide Level 27 mmol/L 09/27/2018 12:56 Anion Gap 13 09/27/2018 12:56 Blood Urea Nitrogen 11 mg/dL 09/27/2018 12:56 Glucose Level 81 mg/dL 09/27/2018 12:56 Calcium Level 8.6 mg/dL 09/27/2018 12:56 documented in this encounter Plan of Treatment Not on file documented as of this encounter Visit Diagnoses Not on filedocumented in this encounter
--- OUTSIDE RECORDS SUMMARY | 2025-03-01 12:39 | XMS_ITS | Encounter Summary ---
Author Organization [employer] Address [address] [place] [address] Care Team Providers Care Insurance Compliance Analyst Name Role Phone Unavailable Primary Care Provider Unavailabl e Encounter Details Date Type Department Care Team (Late st Contact Info) Description 10/11/2018 Transcribed Document [facility] [place] [facility] [place] [address] ProviderChula MD [address] [place] [address] Social History Tobacco Use Types [...] Conversion Note - Historical ProviderMD - 10/11/2018 7:31 AM TRACK SERVICE PERSON Event Note Entered On: 10/11/2018 7:33 EST Performed On: 10/11/2018 7:31 EST by Naa Alonso Nurse - other Event Note Event Date/Time : 10/11/2018 7:15 EST Event Location : Other: pre op Event Details : Change in condition Description of Event : complaint of itching at IV site and scalp and generalized HOT sensation. IV vancomycin discontinued, Dr Recinos notified and orders received for clindamycin. Dr Lopez notified of status and IV Benadryl orders received for itching. Naa Alonso Nurse - other - 10/11/2018 7:31 EST documented in this encounter Plan of Treatment Not on file documented as of this encounter Visit Diagnoses Not on filedocumented in this encounter
--- OUTSIDE RECORDS SUMMARY | 2025-03-01 12:39 | XMS_ITS | Encounter Summary ---
Author Organization [employer] Address [address] [place] [address] Care Team Providers Care Clinical Lab Technologist Name Role Phone Unavailable Primary Care Provider Unavailabl e Encounter Details Date Type Department Care Team (Late st Contact Info) Description 10/11/2018 Transcribed Document [facility] [place] [address] [place] [address] ProviderChula MD [address] [place] [address] Social History Tobacco Use Types [...] - Chula ProviderMD - 10/11/2018 8:13 AM BOWLING ALLEY REFINISHER [facility] [place] Summary Primary Physician: JUANY PRICE MD Finalized Date/Time: 10/11/18 11:43:57 Pt. Name: SHIVAM BERNARD D.O.B./Sex: 1985 Female Med Rec #: [id number] Physician: JUANY PRICE MD Financial #: [id number] Pt. Type: O Room/Bed: [facility] Admit/Disch: 10/11/18 04:54:00 - Institution: [facility] [place] PACU Case Times Entry 1 In PACU I 10/11/18 09:35:00 Ready for PACU 10/11/18 10:45:00 Discharge Discharge from PACU 10/11/18 11:30:00 I Last Modified By: EASTON ROSARIO, RN 10/11/18 11:43:38 [facility] Main OR PACU Acuity Entry 1 Start Time 10/11/18 10:45:00 Stop Time 10/11/18 11:30:00 Acuity Level E PACU Acuity I Last Modified By: EASTON ROSARIO RN 10/11/18 11:43:55 Finalized By: EASTON ROSARIO, RN Document Signatures Signed By: EASTON ROSARIO RN 10/11/18 11:43 Electronically signed by Hanane [facility] Conversion Conditioner Tumbler Operator Cerner at 01/06/2023 4:48 PM CDT documented in this encounter Plan of Treatment Not on file documented as of this encounter Visit Diagnoses Not on filedocumented in this encounter
--- OUTSIDE RECORDS SUMMARY | 2025-03-01 12:39 | XMS_ITS | Encounter Summary ---
Author Organization [employer] Address [address] [place] [address] Care Team Providers Care Engine Boss Name Role Phone Unavailable Primary Care Provider Unavailabl e Encounter Details Date Type Department Care Team (Late st Contact Info) Description 10/11/2018 Transcribed Document [facility] [place] [facility] [address] ProviderChula MD [address] [place] [address] Social History Tobacco Use Types [...] Conversion Note - Historical ProviderMD - 10/11/2018 6:12 AM CHEERLEADING COACH Pediatric Growth Entered On: 10/11/2018 6:12 EST Performed On: 10/11/2018 6:12 EST by Michelle Le Patient Sanding Machine Tender Automatic Height and Weight, Clinical Dosing Height Source : Stated Height Entry Format : [place] Height, Feet : 5 ft(Converted to: 152 cm, 60 Inch) Height, Inches : 4 Inch(Converted to: 0 ft 4 Inch, 10.16 cm) Clinical Height : 162.56 cm Weight Source : Standing scale Weight Entry Format : [place] Clinical Dosing Weight : 87.73 kg Weight, Pounds : 193 lb Body Surface Area (BSA) : 1.93 m2 Body Mass Index : 33.2 kg/m2 (HI) [place] Body Weight : 54 kg Michelle Le Patient Sanding Machine Tender Automatic - 10/11/2018 6:12 EST Electronically signed by Hanane [facility] Conversion Thresher Broomcorn Cerner at 01/06/2023 5:04 PM CDT documented in this encounter Plan of Treatment Not on file documented as of this encounter Visit Diagnoses Not on filedocumented in this encounter
[2025-03-01 14:06] LABS: Glucose 1 Hour 108 mg/dL (74-100)
== END 2025-03-01 23:59 | disposition home or self-care (01) ==
PROVIDERS: PCP Nurse Practitioner; Visit Provider Obstetrics & Gynecology
DX: O10.919 Unspecified pre-existing hypertension complicating pregnancy, unspecified trimester (principal)
CPT/HCPCS: 36415; 82947

== ENCOUNTER 2025-03-08 12:51 | Outpatient (CLI) | payer OTHER, SELFPAY ==
--- OUTSIDE RECORDS SUMMARY | 2025-03-08 12:53 | XMS_ITS | Encounter Summary ---
Author Organization [employer] Address [address] [place] [address] Care Team Providers Care Cloth Finishing Range Back Tender Name Role Phone Unavailable Primary Care Provider Unavailabl e Encounter Details Date Type Department Care Team (Late st Contact Info) Description 10/11/[address] [facility] [place] [address] [place] [address] ProviderChula MD [address] [place] [address] Social History Tobacco Use Types [...] - Chula ProviderMD - 10/11/2018 8:13 AM AUTOMOBILE RELOCATION ENGINEER [place] Main OR IntraOp Summary Primary Physician: JUANY PRICE MD Finalized Date/Time: 10/11/18 09:39:55 Pt. Name: JOANA SHIVAMBEBETO Acevedo D.O.B./Sex: 1985 Female Med Rec #: [id number] Physician: JUANY PRICE MD Financial #: [id number] Pt. Type: O Room/Bed: [facility]/ Admit/Disch: 10/11/18 04:54:00 - [place] [facility] [place] Attendance Entry 1 Entry 2 Entry 3 Case Attendee JUANY PRICE MD BRUNNER, RICHARD V, Chelsey Bran, Rn-Surgery Role Performed Surgeon/Proceduralist, OUTSOLE HANDLER/Nurse Shell Molding Roller Blast Operator Certified Professional Coder, First First Time In 10/11/18 07:39:00 10/11/18 [...] BRUNER, HAVEN Role Performed Scrub, First Physician patient clerical assistant Lasting Room Machine Operator Time In 10/11/18 07:39:00 10/11/18 07:39:00 [...] CRUZ, RN [address] ST Role Performed Certified Professional Coder, Second Scrub, Second Time In 10/11/18 08:48:00 10/11/18 09:02:00 Time Out 10/11/18 09:02:00 10/11/18 09:33:00 Procedure Lumbar Microdiscectomy Lumbar Microdiscectomy Other Attendee Superficial Wound Closed By: Last Modified By: Chelsey Mae Demike, Cynthia Y, Rn-Surgery 10/11/18 Rn-Surgery 10/11/18 09:33:47 09:33:47 [facility] IntraOp Case Attendance Audit 10/11/18 09:33:47 Parking Patroller: [id number] Modifier: [id number] 1 <*> Procedure Lumbar Microdiscectomy 2 <+> [...] 8 <*> Procedure Lumbar Microdiscectomy 10/11/18 09:21:03 Parking Patroller: [id number] Modifier: [id number] 1 <+> Time Out 1 <*> Procedure Lumbar Microdiscectomy 10/11/18 09:04:27 Parking Patroller: [id number] Modifier: [id number] <+> 1 Procedure 2 <*> Procedure Lumbar Microdiscectomy 3 <*> Procedure Lumbar Microdiscectomy 4 <*> Procedure Lumbar Microdiscectomy 5 <*> Procedure Lumbar Microdiscectomy 6 <*> Procedure Lumbar Microdiscectomy 7 <*> Procedure Lumbar Microdiscectomy 8 <*> Procedure Lumbar Microdiscectomy 10/11/18 09:04:05 Parking Patroller: [id number] Modifier: [id number] <+> 7 Case Attendee <+> 7 Role Performed <+> 7 Time In <+> 7 Time Out <+> 7 Procedure <+> 8 Case Attendee <+> 8 Role Performed <+> 8 Time In <+> 8 Procedure 10/11/18 08:29:38 Parking Patroller: [id number] Modifier: [id number] <*> Procedure Lumbar Microdiscectomy 3 <*> Procedure Lumbar Microdiscectomy 4 <*> Procedure Lumbar Microdiscectomy 5 <*> Procedure Lumbar Microdiscectomy 6 <+> Time In 6 <*> Procedure Lumbar Microdiscectomy 10/11/18 08:24:25 Parking Patroller: [id number] Modifier: [id number] <*> Procedure Lumbar Microdiscectomy 3 <*> Procedure Lumbar Microdiscectomy 4 <*> Procedure Lumbar Microdiscectomy 5 <+> Time In 5 <*> Procedure Lumbar Microdiscectomy <+> 6 Case Attendee <+> 6 Role Performed <+> 6 Procedure 10/11/18 08:13:49 Parking Patroller: [id number] Modifier: [id number] <+> 1 Time In 2 <+> Time [...] [facility] IntraOp Case Times Audit 10/11/18 09:33:44 Parking Patroller: [id number] Modifier: [id number] <+> 1 Out Room Time <+> 1 Stop Time 10/11/18 09:33:20 Parking Patroller: [id number] Modifier: [id number] <+> 1 Stop Time 10/11/18 08:13:56 Parking Patroller: [id number] Modifier: [id number] <+> 1 Start Time [facility] IntraOp Cautery Entry 1 ESU Identification Cautery Type Monopolar ESU ID Number [id number] ID Type Hospital Number Cautery Settings Cut Setting 35 Coag Setting 35 Bipolar Setting 20 ESU Grounding Pad Ground Pad Type Adult Grounding Pad Site Right thigh Grounding Pad Chlesey Mae, Applied By Rn-Surgery Grounding Pad Site Intact Skin Condition Before Cautery Grounding Pad Site Unchanged Skin Condition After Cautery Last Modified By: Chelsey Mae, Rn-Surgery 10/11/18 08:35:57 [facility] IntraOp Cautery Audit 10/11/18 08:35:57 Parking Patroller: [id number] Modifier: [id number] 1 <*> Grounding Pad Site Right Lower [...] [facility] IntraOp Counts Final Audit 10/11/18 09:21:17 Parking Patroller: [id number] Modifier: [id number] 1 <*> Procedure Lumbar Microdiscectomy 1 <+> [...] Rn-Surgery 10/11/18 08:26:46 [facility] IntraOp General Case Wire Twister 1 Case Information OR OR 01 [facility] [...] Avitene 1Gm powder - Marcaine 0.25% 30ml [id number] vial - [id number] Combo Med List Time Administered Route of [...] Correctly Urinary Catheter N/A Documented in IView Trejo Patient Yes Recovery Concerns Reviewed with Anesthesia [...] Intra Op Sign Out Audit 10/11/18 09:39:50 Parking Patroller: [id number] Modifier: [id number] <+> 1 RN Sign Out Signature Date/Time [...] [facility] IntraOp Surgical Procedures Audit 10/11/18 09:33:24 Parking Patroller: [id number] Modifier: [id number] 1 <*> Procedure Lumbar Microdiscectomy 1 <+> Stop 10/11/18 09:21:35 Parking Patroller: [id number] Modifier: [id number] 1 <*> Procedure Lumbar Microdiscectomy 1 <+> Specialty 10/11/18 09:04:26 Parking Patroller: [id number] Modifier: [id number] <+> 1 Primary Procedure <+> 1 Primary [...] Progress Within the Last 60 Minutes Beta Thalia N/A Administered Venous Yes Thromboembolism Prophylaxis Required Anticipated Critical Events Surgeon None expected Anesthesia Provider None expected Nursing Assures Sterility of instruments, Implant Availability Essential Imaging Yes Labeled and Displayed Last Modified By: Chelsey Mae Rn-Surgery 10/11/18 08:33:51 [facility] IntraOp Time Out Audit 10/11/18 08:33:51 Parking Patroller: [id number] Modifier: [id number] 1 <+> Beta Thalia Administered 1 <+> [...] Rn-Surgery 10/11/18 09:39 Electronically signed by Hanane [facility] Conversion Operations Examiner Cerner at 01/06/2023 4:42 PM CDT documented in this encounter Plan of Treatment Not on file documented as of this encounter Visit Diagnoses Not on filedocumented in this encounter
--- OUTSIDE RECORDS SUMMARY | 2025-03-08 12:53 | XMS_ITS | Encounter Summary ---
Author Organization [employer] Address [address] [place] [address] Care Team Providers Care Survey Questionnaire Designer Name Role Phone Unavailable Primary Care Provider Unavailabl e Encounter Details Date Type Department Care Team (Late st Contact Info) Description 10/11/2018 Transcribed Document [facility] [place] [address] [place] [address] ProviderChula MD [address] [place] [address] Social History Tobacco Use Types Packs/Day Years [...] - Historical ProviderMD - 10/11/2018 7:35 AM CHIEF OF PEDIATRIC UROLOGY Event Note Entered On: 10/11/2018 7:37 EST [...]
--- OUTSIDE RECORDS SUMMARY | 2025-03-08 12:53 | XMS_ITS | Encounter Summary ---
Author Organization [employer] Address [address] [place] [address] Care Team Providers Care Manager Of Patient Name Role Phone Unavailable Primary Care Provider Unavailabl e Encounter Details Date Type Department Care Team (Late st Contact Info) Description 10/11/2018 Transcribed Document [facility] [place] [facility] [place] [address] ProviderChula MD [address] [place] [address] Social History Tobacco Use Types [...] - Historical ProviderMD - 10/11/2018 6:33 AM OLD COIN DEALER Pre Procedure Adult Entered On: 10/11/2018 6:47 EST Performed On: 10/11/2018 6:33 EST by Naa Alonso Nurse - denise Height and Weight, Clinical Dosing Height Source : Stated Height Entry Format : [place] Height, Feet : 5 ft(Converted to: 152 cm, 60 Inch) Height, Inches : 4 Inch(Converted to: 0 ft 4 Inch, 10.16 cm) Clinical Height : 162.56 cm Weight Source : Standing scale Weight Entry Format : [place] Clinical Dosing Weight : 87.73 kg Weight, Pounds : 193 lb Body Surface Area (BSA) : 1.93 m2 Body Mass Index : 33.2 kg/m2 (HI) [place] Body Weight : 54 kg Naa Alonso [...] Obtained From : Patient Primary Language : [place] Preferred Communication Mode : Verbal Communication Barrier [...] Scale Risk Level : 0-24 Low Risk [place] Fall Interventions : Adequate lighting, Call device within reach, Wheels locked Naa Alonso Nurse - denise - 10/11/2018 6:33 EST Fall Risk Education [...]
--- OUTSIDE RECORDS SUMMARY | 2025-03-08 12:53 | XMS_ITS | Encounter Summary ---
Author Organization [employer] Address [address] [place] [address] Care Team Providers Care Pharmacy Assistant Name Role Phone Unavailable Primary Care Provider Unavailabl e Encounter Details Date Type Department Care Team (Late st Contact Info) Description 09/27/2018 Transcribed Document [facility] [place] [facility] [place] [address] ProviderChula MD [address] [place] [address] Social History Tobacco Use Types [...] - Historical ProviderMD - 09/27/2018 10:30 AM MANAGER SECURITY AND SAFETY Patient: SHIVAM BERNARD Age: 33 Years Sex: [...]
--- OUTSIDE RECORDS SUMMARY | 2025-03-08 12:53 | XMS_ITS | Encounter Summary ---
Author Organization [employer] Address [address] [place] [address] Care Team Providers Care Social Media Coordinator Name Role Phone Unavailable Primary Care Provider Unavailabl e Encounter Details Date Type Department Care Team (Late st Contact Info) Description 10/11/[address] [facility] [place] [facility] [place] [address] ProviderChula MD [address] [place] [address] Social History Tobacco Use Types [...] - Historical ProviderMD - 10/11/2018 7:31 AM INK BLENDER Event Note Entered On: 10/11/2018 7:33 EST [...]
--- OUTSIDE RECORDS SUMMARY | 2025-03-08 12:53 | XMS_ITS | Data Portability ---
Author Organization [facility] P[facility] [place] Address [address] [place] [address] Care Team Providers Care Lumber Racker Name Role Phone CHEPE GARNER Primary Care Provider [phone] Assessment No assessment recorded. Plan of Treatment Reminders Order Date Submit Date Provider Last Modified By Organization Details Last Modified Time Details Appointments None recorded. Lab CBC w/ auto diff 2021 022 4 [facility] (Lab Registration) , [address] [place] [address] [place], [address], 16:56:45 CMP, serum or plasma 2021 022 [email or web address] 4 [facility] (Lab Registration) , [address] [place] [address] [place], [address], 16:56:45 Referral None recorded. Procedures upper endoscopy procedure (EGD) (PROC) 2022 023 [email or web address] Not available 3 07:40:30 Surgeries None recorded. Imaging US, abdomen, limited 2021 022 [email or web address] 4 [facility] (Central Scheduling), [address] [place] [address] [place], [address], 10:57:34 Medication Orders famotidine 40 mg tablet 2021 022 4 Not available 14:46:54 Patient TargetsNo targets recorded. Patient InstructionsNo instructions recorded. Reason for Referral None Reported. Results Created Date Observation Date Name Description Value Unit Range Abnormal Flag Note LastModifiedBy Organization Detail LastModifiedTime 07/01/2007/01/2022 CBC W/ AUTO DIFF WBC 8.12 K/uL 4.5-11 .5 Not Available [facility] (Pre-Op Clinic) [address] [place] [address] [place], [address], 07/01/2022 12:13:16 07/01/2007/01/2022 CBC W/ AUTO DIFF RBC 5.45 M/uL 4.0-5. 4 high Not Available [facility] (Pre-Op Clinic) [address] [place] [address] [place], [address], 07/01/2022 12:13:16 07/01/2007/01/2022 CBC W/ AUTO DIFF HGB 15.8 g/dL 12.0-1 5.0 high Not Available [facility] (Pre-Op Clinic) [address] [place] [address] [place], [address], 07/01/2022 12:13:16 07/01/2007/01/2022 CBC W/ AUTO DIFF HCT 46.8 % 35-49 Not Available [facility] (Pre-Op Clinic) [address] [place] [address] [place], [address], 07/01/2022 12:13:16 07/01/2007/01/2022 CBC W/ AUTO DIFF MCV 85.9 fL 80.0-1 00.0 Not Available [facility] (Pre-Op Clinic) [address] [place] [address] [place], [address], 07/01/2022 12:13:16 07/01/2007/01/2022 CBC W/ AUTO DIFF MCH 29.0 pg 26.0-3 2.0 Not Available [facility] (Pre-Op Clinic) [address] [place] [address] [place], [address], 07/01/2022 12:13:16 07/01/2007/01/2022 CBC W/ AUTO DIFF MCHC 33.8 g/dL 32.0-3 6.0 Not Available [facility] (Pre-Op Clinic) [address] [facility] [place], [address], 07/01/2022 12:13:16 07/01/2007/01/2022 CBC W/ AUTO DIFF RDW 13.2 % 11.5-1 4.5 Not Available [facility] (Pre-Op Clinic) [address] [facility] [place], [address], 07/01/2022 12:13:16 07/01/2007/01/2022 CBC W/ AUTO DIFF platelet count 272 K/uL 142-42 4 Not Available [facility] (Pre-Op Clinic) [address] [place] [address] [place], [address], 07/01/2022 12:13:16 07/01/2007/01/2022 CBC W/ AUTO DIFF MPV 10.9 fL 6.8-10 .2 high Not Available [facility] (Pre-Op Clinic) [address] [place] [address] [place], [address], 07/01/2022 12:13:16 07/01/2007/01/2022 CBC W/ AUTO DIFF neutrophil % 57.6 % 50-70 Not Available [facility] (Pre-Op Clinic) [address] [place] [address] [place], [address], 07/01/2022 12:13:16 07/01/2007/01/2022 CBC W/ AUTO DIFF lymphocyte % 33.1 % 18.0-4 2.0 Not Available [facility] (Pre-Op Clinic) [address] [place] [address] [place], [address], 07/01/2022 12:13:16 07/01/2007/01/2022 CBC W/ AUTO DIFF monocyte % 7.4 % 2.0-11 .0 Not Available [facility] (Pre-Op Clinic) [address] [place] [address] [place], [address], 07/01/2022 12:13:16 07/01/20 22 07/01/2022 CBC W/ AUTO DIFF eosinophil % 1.0 % 1.0-3. 0 Not Available [facility] (Pre-Op Clinic) [address] [facility] [place], [address], 07/01/2022 12:13:16 07/01/20 22 07/01/2022 CBC W/ AUTO DIFF basophil % 0.7 % 0.0-2. 0 Not Available [facility] (Pre-Op Clinic) [address] [place] [address] [place], [address], 07/01/2022 12:13:16 07/01/2007/01/2022 CBC W/ AUTO DIFF immature granulocytes % 0.2 % 0.0-0. 8 Not Available [facility] (Pre-Op Clinic) [address] [place] [address] [place], [address], 07/01/2022 12:13:16 07/01/20 22 07/01/2022 CBC W/ AUTO DIFF nucleated red blood cells % 0.0 % Not Available [facility] (Pre-Op Clinic) [address] [place] [address] [place], [address], 07/01/2022 12:13:16 07/01/20 22 07/01/2022 CBC W/ AUTO DIFF neutrophil # 4.67 K/uL Not Available [facility] (Pre-Op Clinic) [address] [place] [address] [place], [address], 07/01/2022 12:13:16 07/01/20 22 07/01/2022 CBC W/ AUTO DIFF lymphocyte # 2.69 K/uL Not Available [facility] (Pre-Op Clinic) [address] [place] [address] [place], [address], 07/01/2022 12:13:16 07/01/20 22 07/01/2022 CBC W/ AUTO DIFF monocyte # 0.60 K/uL Not Available [facility] (Pre-Op Clinic) [address] [place] [address] [place], [address], 07/01/2022 12:13:16 07/01/20 22 07/01/2022 CBC W/ AUTO DIFF eosinophil # 0.08 K/uL Not Available [facility] (Pre-Op Clinic) [address] [place] [address] [place], [address], 07/01/2022 12:13:16 07/01/20 22 07/01/2022 CBC W/ AUTO DIFF basophil # 0.06 K/uL Not Available [facility] (Pre-Op Clinic) [address] [place] [address] [place], [address], 07/01/2022 12:13:16 07/01/20 22 07/01/2022 CBC W/ AUTO DIFF immature gramulocytes # 0.02 K/uL Not Available [facility] (Pre-Op Clinic) [address] [place] [address] [place], [address], 07/01/2022 12:13:16 07/01/20 22 07/01/2022 CBC W/ AUTO DIFF nucleated red blood cells # 0.00 k/uL Not Available [facility] (Pre-Op Clinic) [address] [place] [address] [place], [address], 07/01/2022 12:13:16 07/01/20 22 07/01/2022 CBC W/ AUTO DIFF manual differential NO Not Available [facility] (Pre-Op Clinic) [address] [place] [address] [place], [address], 07/01/2022 12:13:16 07/01/2007/01/2022 CBC W/ AUTO DIFF note Unles s other hernandez noted testi ng [facility] [address] [place] [address] Sergio camacho MD Not Available [facility] (Pre-Op Clinic) [address] [place] [address] [place], [address], 07/01/2022 12:13:16 07/01/2007/01/2022 COMP METAB OLIC PANEL sodium 143 mmol/ L 137-14 7 Not Available [facility] (Pre-Op Clinic) [address] [facility] [place], [address], 07/01/2022 12:46:39 07/01/2007/01/2022 COMP METAB OLIC PANEL potassium 4.2 mmol/ L 3.5-5. 1 Not Available [facility] (Pre-Op Clinic) [address] [facility] [place], [address], 07/01/2022 12:46:39 07/01/2007/01/2022 COMP METAB OLIC PANEL chloride 107 mmol/ L 98-110 Not Available [facility] (Pre-Op Clinic) [address] [facility] [place], [address], 07/01/2022 12:46:39 07/01/2007/01/2022 COMP METAB OLIC PANEL carbon dioxide 23 mmol/ L 21-30 Not Available [facility] (Pre-Op Clinic) [address] [facility] [place], [address], 07/01/2022 12:46:39 07/01/20 22 07/01/2022 COMP METAB OLIC PANEL anion gap 13 mmol/ L 6-14 Not Available [facility] (Pre-Op Clinic) [address] [facility] [place], [address], 07/01/2022 12:46:39 07/01/20 22 07/01/2022 COMP METAB OLIC PANEL glucose 88 mg/dL 70-115 Not Available [facility] (Pre-Op Clinic) [address] [facility] [place], [address], 07/01/2022 12:46:39 07/01/20 22 07/01/2022 COMP METAB OLIC PANEL BUN 7 mg/dL 7-17 Not Available [facility] (Pre-Op Clinic) [address] [place] [address] [place], [address], 07/01/2022 12:46:39 07/01/20 22 07/01/2022 COMP METAB OLIC PANEL creatinine 0.7 mg/dL 0.5-1. 5 Not Available [facility] (Pre-Op Clinic) [address] [place] [address] [place], [address], 07/01/2022 12:46:39 07/01/20 22 07/01/2022 COMP METAB OLIC PANEL BUN/creatini ne ratio 10 ratio 10-20 Not Available [facility] (Pre-Op Clinic) [address] [place] [address] [place], [address], 07/01/2022 12:46:39 07/01/20 22 07/01/2022 COMP METAB OLIC PANEL glom filtration rate 100 mL/mi n >60- Not Available [facility] (Pre-Op Clinic) [address] [place] [address] [place], [address], 07/01/2022 12:46:39 07/01/20 22 07/01/2022 COMP METAB OLIC PANEL osmolality (calculated) 295 mosmo l/kg 275-30 1 OSMOL ALITY IS A CALCU LATIO N UTILI ZING THE SERUM /PLAS MA SODIU M, GLUCO SE AND UREA NITRO GEN (BUN) LEVEL S. FOR THE MOST ACCUR ATE RESUL T A MEASU RED SERUM OSMOL ALITY IS SUGGE STED. Not Available [facility] (Pre-Op Clinic) [address] [place] [address] [place], [address], 07/01/2022 12:46:39 07/01/20 22 07/01/2022 COMP METAB OLIC PANEL total protein 8.6 g/dL 6.2-8. 2 high Not Available [facility] (Pre-Op Clinic) [address] [place] [address] [place], [address], 07/01/2022 12:46:39 07/01/20 22 07/01/2022 COMP METAB OLIC PANEL albumin 5.0 g/dL 3.5-5. 0 Not Available [facility] (Pre-Op Clinic) [address] [place] [address] [place], [address], 07/01/2022 12:46:39 07/01/2007/01/2022 COMP METAB OLIC PANEL calcium 9.3 mg/dL 8.5-10 .8 Not Available [facility] (Pre-Op Clinic) [address] [place] [address] [place], [address], 07/01/2022 12:46:39 07/01/2007/01/2022 COMP METAB OLIC PANEL bilirubin total 1.2 mg/dL 0.2-1. 3 Not Available [facility] (Pre-Op Clinic) [address] [place] [address] [place], [address], 07/01/2022 12:46:39 07/01/2007/01/2022 COMP METAB OLIC PANEL AST (SGOT) 34 IU/L 14-36 Not Available [facility] (Pre-Op Clinic) [address] [place] [address] [place], [address], 07/01/2022 12:46:39 07/01/2007/01/2022 COMP METAB OLIC PANEL ALT (SGPT) 37 IU/L 0-35 high Pleas e note new refer ence inter juan j for ALT. Due to a recen t manuf actur er metho dolog y mcintyre e, the refer ence inter juan j for ALT is lower effec tive January 07, 2021. Not Available [facility] (Pre-Op Clinic) [address] [place] [address] [place], [address], 07/01/2022 12:46:39 07/01/2007/01/2022 COMP METAB OLIC PANEL alk phosphatase 98 IU/L 38-126 Not Available [facility] (Pre-Op Clinic) [address] [place] [address] [place], [address], 07/01/2022 12:46:39 07/01/2007/01/2022 COMP METAB OLIC PANEL note Unles s other hernandez noted testi ng perfo rmed at: [facility] [address] [place] [address] Sergio camacho MD Not Available [facility] (Pre-Op Clinic) [address] [place] [address] [place], [address], 07/01/2022 12:46:39 11/04/19 23 11/04/2022 URINE PREGN DEBORAH TEST urine test NEGATI VE negati ve Not Available [facility] (Lab Registration) [address] [place], [address], 11/04/2022 08:57:24 11/04/19 23 11/04/2022 URINE PREGN DEBORAH TEST internal control PASS PASS Not Available [facility] (Lab Registration) [address] [place], [address], 11/04/2022 08:57:24 11/04/19 23 11/04/2022 URINE PREGN DEBORAH TEST note Unles s other hernandez noted testi ng perfo rmed at: [facility] [address] [place] [address] [phone] Sergio camacho MD CLIA: [id number] Not Available [facility] (Lab Registration) [address] [place], [address], 11/04/2022 08:57:24 11/01/19 24 11/01/2023 URINE PREGN DEBORAH TEST urine test NEGATI VE negati ve Not Available [facility] (Lab Registration) [address] [place], [address], 11/01/2023 09:10:22 11/01/19 24 11/01/2023 URINE PREGN DEBORAH TEST internal control PASS PASS Not Available [facility] (Lab Registration) [address] [place], [address], 11/01/2023 09:10:22 11/01/19 24 11/01/2023 URINE PREGN DEBORAH TEST note Unles s other hernandez noted testi ng perfo rmed at: [facility] [address] [place] [address] [phone] Sergio camacho MD CLIA: [id number] Not Available [facility] (Lab Registration) [address] [place], [address], 11/01/2023 09:10:22 10/20/19 23 10/20/2022 US RT upper quadr ant [facility] [address] [place] [address] Phone: Fax: Name: ANGIE SELLERS Exam Date: 10/20/19 : 985 Age 37 Gender : F Access ion: [id number] Physic ramírez: MANDI ENRIQUEZ Facili ty: [facility] Facili ty HSV: Outpat ient Exam: [...] [facility] Leg[facility] y authen ticate d by LUIS Montes MD 10-20 12:11: 59 CC'ed Logic: Paz wade Provid er: DEEPIKA Tsai CC Provid er: PATSY LEONE BASHIR Attend ing Provid er: DEEPIKA Tsai Referr ing Provid er: DEEPIKA Tsai Admitt ing Provid er: DEEPIKA Tsai [email or web address] [facility] (Radiology) [address] , [place], [address], 10/26/2022 11:18:22 10/20/19 23 10/20/2022 US, abdom en, limit ed No observ ation record ed. [address] (Central Scheduling) [address] [place] [address] , [place], [address], 10/21/2022 09:23:12 11/15/19 23 11/15/2022 XR, honorio mauro [facility] [address] [place] [address] (Phone ) LOUISEO GUS Montes REPORT ------ ------ ------ ------ ------ ------ ------ ------ ----- Mariia diaz Name: ANGIE SELLERS No: [id number] Medica l Record No: [id number] Date of : 1984 Access ion No: [id number] Date of Exam: 2022 Mariia diaz [...] Adrian Admitt ing Provid er: FRANCISCO Adrian [email or web address] [facility] (Central Scheduling) [address] [place] [address], [address], 11/25/2022 16:38:36 Result Notes Documentation Provider Name and Address Organization Details Recorded Time Xr, [employer]oph[employer] : [address] [address] (Phone) DIAGNOSTIC IMAGING REPORT Patient Name: SHIVAM BERNARD Patient No: [id number] Date of : 1985 Accession No: [id number] Date of Exam: 11/15/2022 Patient Type: Outpatient [...] Address Organization Details Recorded Time Hypertensive disorder 48259038 Active 2021 Jerrica [place]rell, [place] - [facility] - [place] & [place] 2 10:28:03 Gastroesophag eal reflux disease 081496593 Active 2021 Jerrica [place], [place] [facility] [place] 2 10:28:01 Upper abdominal pain 28910201 Active 2021 Marissa Enriquez NP [address] [facility], [address], [place], [address] , [place] [facility] [place] 2 11:22:10 Nausea 640370587 Active 2021 Marissa Enriquez NP [address] [facility], [address], [address] , [place] - [place] & [place] 2 11:22:10 Gastro-esopha geal reflux disease with ulceration 168414513 Active 2022 Yesenia farrell, [place] [facility] - [place] & [place] 3 14:13:22 Anxiety 51228350 Active 2022 Yesenia farrell, [place] [facility] & [place] 3 14:13:43 Problem Notes None recorded. Procedures Surgical History Date Name Laterality Status Provider Name and Address Organization Details Recorded Time 2 Colonoscopy completed Jerrica ANTONY [facility] & [place] 07/01/2022 10:47:12 0 Colonoscopy completed Jerrica ANTONY [facility] & [place] 07/01/2022 10:46:11 9 partial resection of colon completed Jerrica ANTONY [facility] & [place] 07/01/2022 10:45:43 9 Back Surgery completed Jerrica ANTONY [facility] & [place] 07/01/2022 10:44:48 7 repair of tendo achilles completed Jerrica ANTONY [facility] & [place] 07/01/2022 10:44:34 Colonoscopy completed Ramamike ANTONY [facility] & [place] 11/14/2023 11:08:32 Imaging Results None recorded. Procedure [...] Updated DateTime 3 162.56 cm 33.3 kg/m2 30456.9 2 g 98.2 [degF] 98 % 98 % 86 /min Jerrica Gay [facility] & [place] 3 09:33:01 Date Recorded Body height Body temperature Provider N john and Address Organization Details Last Updated DateTime 11/23/2022 162.56 cm 97.7 [degF] Yesenia Barnes [facility] & [place] 11/23/2022 14:12:01 Date Recorded Body height Body mass index (BMI) Body weight Body temperature Oxygen saturation Oxygen saturation in Arterial blood by Pulse oximetry Heart rate Provider Name and Address Organization Details Last Updated DateTime 2 162.56 cm 35.2 kg/m2 93035.4 4 g 97 [degF] 98 % 98 % 88 /min Jerrica Gay [facility] & [place] 2 10:25:57 Social History None recorded. Functional Status Question Answer Note LastModified by Organizat ion Details LastModified Time Do you use any illicit or recreational drugs? No [email or web address] Information not available 07/01/2022 What is your level of alcohol consumption? None [email or web address] Information not available 07/01/2022 Mental Status None [...] SNOMED-CT Code Diagnosis ICD10 Code Diagnosis Note [id number] Marissa Enriquez NP [address] [place] [address] 07/01/2022 10:05:29 07/01/2022 10:56:30 Upper abdominal pain 71705790 R10.10 5 month hx of upper abdominal pain occasional ly radiates to back. associated nausea and abdominal bloating. EGD reviewed from 09/2020 noting mild gastritis, negative H. pylori as well as reflux esophagiti s. Recommend continued use of PPI as prescribed . Recommend US RUQ to r/o biliary etiology. Plan for labs today. Nausea 313259835 R11.0 Plan for labs and US as above to further evaluate. Gastroesop hageal reflux disease 749276730 K21.9 Uncontroll ed symptoms with use of Pantoprazo le 40 mg daily. Recommend continued use of PPI and start Famotidine 40 mg po daily. recommend avoidance of food triggers as well as avoidance of eating 2-4 hours prior to lying down. History of colectomy 427 012099 Z90.49 s/p laparoscop ic total colectomy with [...] begin screening colonoscop y at age 20. [id number] RIA Alaniz [facility] [address] [place], [place] [address] [address] 10/26/2022 09:16:27 10/26/2022 13:53:04 Esophageal dysphagia 24567321 R13.19 RUQ US reviewed, demonstrat es fatty liver. ALT minimally elevated at 37. These are chronic findings per her report. She continues to struggle with abdominal bloating, pain. Also notes dysphagia. Recommend EGD to rule out PUD, worsening gastritis, obtain biopsies to r/o h. pylori. [id number] Michele Chavez Jr, MD [facility] [address] [address] 11/23/2022 13:50:23 11/23/2022 14:44:22 Simple renal cyst 22901086 N28.1 patient with a small simple right [...] Member ID Guarantor Name 04/06/[address] [facility] (MEDICAID HMO) Shivam Bernard [id number] Shivam Bernard Notes Date Note Type Note [...] had a colonoscopy with Dr. Ruth at [facility] 12/29/2021 due to hx of hx of colon polyps, S/P colectomy 12/2018. Due for repeat colonoscopy in 2 years, 12/2023. Marissa Enriquez NP [address] [facility], [address], [place], [address], [facility] - [facility] & [place] 07/01/2022 11:26:54 10/26/2022 text/html This is a 37-year-old female who is seen today in follow up for abdominal pain and bloating. She is seen today in follow up with [facility] US. Her complaint today is abdominal bloating that occurs with most meals. Upper abdominal pain occurs occasionally. She does note some difficulty with swallowing. Denies nausea or vomiting. Her last EGD was 09/2020 which demonstrated mild gastritis and chronic reflux esophagitis. She has a history of colectomy in 2019 at and is due for repeat colonoscopy in 2023. RIA Alaniz [address] [facility], [address], [place], [address], [place] - [facility] & [place] 10/26/2022 13:23:07 11/23/2022 text/html patient is a 37-year-old white female referred for recent incidental finding of a 1.4 x 1.1 simple right renal cyst. Patient has had some recent right upper quadrant pain necessitating the ultrasound. Patient does have a history of polyposis and underwent resection of 80% every: By report. Michele Chavez Jr, MD [address] [facility], [address], [place], [address], [place] - [facility] & [place] 11/23/2022 16:10:19 OBGyn Episode No OBEpisode recorded.
--- OUTSIDE RECORDS SUMMARY | 2025-03-08 12:53 | XMS_ITS | Encounter Summary ---
Author Organization [employer] Address [address] [place] [address] Care Team Providers Care Switchboard Mechanic Name Role Phone Unavailable Primary Care Provider Unavailabl e Encounter Details Date Type Department Care Team (Late st Contact Info) Description 10/11/2018 Transcribed Document [facility] [place] [address] [place] [address] ProviderChula MD [address] [place] [address] Social History Tobacco Use Types [...] - Chula ProviderMD - 10/11/2018 8:13 AM [employer] PROM[employer] [facility] PostOp Summary Primary Physician: JUANY PRICE MD Finalized Date/Time: 10/11/18 13:49:18 Pt. Name: SHIVAM BERNARD D.O.B./Sex: 1985 Female Med Rec #: [id number] Physician: JUANY PRICE MD Financial #: [id number] Pt. Type: O Room/Bed: [facility] Admit/Disch: 10/11/18 04:54:00 - Institution: [facility] OR PostOp Case Times Entry 1 In PACU II 10/11/18 11:36:00 Ready for PACU II 10/11/18 13:44:00 Discharge Discharge from PACU 10/11/18 13:44:00 II Last Modified By: LeannaElba mcnamara Rn 10/11/18 13:49:17 [facility] PostOp Case Times Audit 10/11/18 13:49:17 Netezza Architect: STEPH Modifier: STEPH <+> 1 Ready for PACU II Discharge <+> 1 Discharge from PACU II Finalized By: Elba Ram, Rn Document Signatures Signed By: Elba Ram Rn 10/11/18 13:49 Electronically signed by Hanane [facility] Conversion Revenue Accountant Cerner at 01/06/2023 5:02 PM CDT documented in this encounter Plan of Treatment Not on file documented as of this encounter Visit Diagnoses Not on filedocumented in this encounter
--- OUTSIDE RECORDS SUMMARY | 2025-03-08 12:53 | XMS_ITS | Encounter Summary ---
Author Organization [employer] Address [address] [place] [address] Care Team Providers Care Wafer Line Worker Name Role Phone Unavailable Primary Care Provider Unavailabl e Encounter Details Date Type Department Care Team (Late st Contact Info) Description 10/11/2018 Transcribed Document [facility] [place] [facility] [address] ProviderChula MD [address] [place] [address] Social History Tobacco Use Types [...] - Historical ProviderMD - 10/11/2018 6:12 AM IS/IT PROJECT MANAGER Pediatric Growth Entered On: 10/11/2018 6:12 EST Performed On: 10/11/2018 6:12 EST by Michelle Le Patient Rail Maintenance Worker Height and Weight, Clinical Dosing Height Source : Stated Height Entry Format : [place] Height, Feet : 5 ft(Converted to: 152 cm, 60 Inch) Height, Inches : 4 Inch(Converted to: 0 ft 4 Inch, 10.16 cm) Clinical Height : 162.56 cm Weight Source : Standing scale Weight Entry Format : [place] Clinical Dosing Weight : 87.73 kg Weight, Pounds : 193 lb Body Surface Area (BSA) : 1.93 m2 Body Mass Index : 33.2 kg/m2 (HI) [place] Body Weight : 54 kg Michelle Le Patient Rail Maintenance Worker - 10/11/2018 6:12 EST documented in this encounter Plan of Treatment Not on file documented as of this encounter Visit Diagnoses Not on filedocumented in this encounter
--- OUTSIDE RECORDS SUMMARY | 2025-03-08 12:53 | XMS_ITS | Encounter Summary ---
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 Name: SHIVAM BERNARD D.O.B./Sex: 1985 Female Med Rec #: [id number] Physician: JUANY PRICE MD Financial #: [id number] Pt. Type: O Room/Bed: [facility] Admit/Disch: 10/11/18 04:54:00 - [place] [facility] [place] PreOp Case Times Entry 1 In Preop 10/11/18 05:30:00 Ready for Holding n/a Room Patient Ready for 10/11/18 06:47:00 Surgery Patient Out of Preop 10/11/18 07:35:00 Patient Out of n/a Holding Room Last Modified By: AISHA, CYNDI 10/11/18 10:17:20 SJE PreOp Case Times Audit 10/11/18 10:17:20 Blower Operator: MANDOINMA Modifier: [email or web address] <+> 1 Patient Out of Preop 10/11/18 06:47:33 Blower Operator: CRAINMA Modifier: CRAINMA <+> 1 Patient Ready for Surgery Finalized By: CYNDI LEONARD Document Signatures Signed By: CYNDI LEONARD 10/11/18 10:17 documented in this encounter Plan of Treatment Not on file documented as of this encounter Visit Diagnoses Not on filedocumented in this encounter
--- OUTSIDE RECORDS SUMMARY | 2025-03-08 12:53 | XMS_ITS | Encounter Summary ---
Author Organization [employer] Address [address] [place] [address] Care Team Providers Care Truck Rental Service Attendant Name Role Phone Unavailable Primary Care Provider Unavailabl e Encounter Details Date Type Department Care Team (Late st Contact Info) Description 09/27/2018 Transcribed Document [facility] [place] [address] [place] [address] ProviderChula MD [address] [place] [address] Social History Tobacco Use Types [...] - Historical ProviderMD - 09/27/2018 10:11 AM DEPARTMENT SUPERVISOR PAT Adult Entered On: 09/27/2018 10:15 EST [...] Source : Stated Height Entry Format : [place] Height, Feet : 5 ft(Converted to: 152 cm, 60 Inch) Height, Inches : 4 Inch(Converted to: 0 ft 4 Inch, 10.16 cm) Clinical Height : 162.56 cm Weight Source : Standing scale Weight Entry Format : [place] Clinical Dosing Weight : 88.18 kg Weight, Pounds : 194 lb Body Surface Area (BSA) : 1.93 m2 Body Mass Index : 33.4 kg/m2 (HI) [place] Body Weight : 54 kg Veronica Marin [...] Obtained From : Patient Primary Language : Somali Preferred Communication Mode : Verbal Communication Barrier [...] Veronica Marin RN - 09/27/2018 10:11 EST documented in this encounter Plan of Treatment Not on file documented as of this encounter Visit Diagnoses Not on filedocumented in this encounter
--- OUTSIDE RECORDS SUMMARY | 2025-03-08 12:53 | XMS_ITS | Encounter Summary ---
Author Organization [employer] Address [address] [place] [address] Care Team Providers Care Producer Director Name Role Phone Unavailable Primary Care Provider Unavailabl e Encounter Details Date Type Department Care Team (Late st Contact Info) Description 10/11/2018 Transcribed Document [facility] [place] [facility] [place] [address] ProviderChula MD [address] [place] [address] Social History Tobacco Use Types [...] - Historical ProviderMD - 10/11/2018 9:28 AM PIERCING MILL OPERATOR DATE OF PROCEDURE: 10/11/2018 ORTHOPEDIC OPERATIVE NOTE PREOPERATIVE DIAGNOSIS(ES): Right L5-S1 herniated nucleus pulposus. POSTOPERATIVE DIAGNOSIS(ES): Right L5-S1 herniated nucleus pulposus. PROCEDURE: Right L5-S1 microdiscectomy, CPT code-70391. SURGEON: Chase Recinos MD SET UP OPERATOR: Benjy. COMPLICATIONS: None. SPECIMENS: None. IMPLANTS: None. ESTIMATED BLOOD LOSS: 25 mL. DESCRIPTION OF PROCEDURE: Patient was identified in the holding area at [facility], transferred to the operative room under the [...]
--- OUTSIDE RECORDS SUMMARY | 2025-03-08 12:53 | XMS_ITS | Encounter Summary ---
Author Organization [employer] Address [address] [place] [address] Care Team Providers Care Barrel Tester And Drainer Name Role Phone Unavailable Primary Care Provider Unavailabl e Encounter Details Date Type Department Care Team (Late st Contact Info) Description 10/11/2018 Transcribed Document [facility] [place] [address] [place] [address] ProviderChula MD [address] [place] [address] Social History Tobacco Use Types [...] - Chula ProviderMD - 10/11/2018 8:13 AM FLEXOGRAPHIC PRESS PLATE SETTER [facility] [place] PACU Summary Primary Physician: JUANY PRICE MD Finalized Date/Time: 10/11/18 11:43:57 Pt. Name: SHIVAM BERNARD D.O.B./Sex: 1985 Female Med Rec #: [id number] Physician: JUANY PRICE MD Financial #: [id number] Pt. Type: O Room/Bed: [facility] Admit/Disch: 10/11/18 04:54:00 - Institution: [facility] [place] Main [place] PACU Case Times Entry 1 [...] RN 10/11/18 11:43 Electronically signed by Hanane [facility] Conversion Accounts Receivable Processor Cerner at 01/06/2023 4:48 PM CDT documented in this encounter Plan of Treatment Not on file documented as of this encounter Visit Diagnoses Not on filedocumented in this encounter
--- OUTSIDE RECORDS SUMMARY | 2025-03-08 12:53 | XMS_ITS | Encounter Summary ---
Author Organization [employer] Address [address] [place] [address] Care Team Providers Care Deputy Head Name Role Phone Unavailable Primary Care Provider Unavailabl e Encounter Details Date Type Department Care Team (Late st Contact Info) Description 10/11/2018 Transcribed Document [facility] [place] [facility] [place] [address] ProviderChula MD [address] [place], [place] [id number] Social History Tobacco Use Types Packs/Day Years [...] - Historical ProviderMD - 10/11/2018 8:12 AM WASTE DISPOSAL LEAKAGE TESTER Peripheral Nerve Block Entered On: 10/11/2018 8:13 [...] - 10/11/2018 8:12 EST Electronically signed by [facility] Conversion Pipeline Operator Cerner at 01/06/2023 4:48 PM CDT documented in this encounter Plan of Treatment Not on file documented as of this encounter Visit Diagnoses Not on filedocumented in this encounter
--- OUTSIDE RECORDS SUMMARY | 2025-03-08 12:54 | XMS_ITS | Referral Summary ---
Author Organization [employer] Address [address] [place] [address] Care Team Providers Care Spray Painting Machine Operator Name Role Phone Unavailable Primary Care [...]
--- OUTSIDE RECORDS SUMMARY | 2025-03-08 12:54 | XMS_ITS | Clinical Summary ---
Author Organization [employer] Address [address] [place] [address] Care Team Providers Care Supervisor Front Name Role Phone Unavailable Primary Care Provider [...]
--- OUTSIDE RECORDS SUMMARY | 2025-03-08 12:54 | XMS_ITS | Clinical Summary ---
Author Organization [facility] Address [address] [place] [address] Care Team Providers Care Business Operations Analyst Name Role Phone Rosemary Fuller Primary Care Provider Allergies No known active allergies Medications famotidine [...] Tdap) 09/12/2023 09/12/2013 Colonoscopy 12/29/2023 12/29/2021, 11/13/2019 [id number] Vaccine ( - season) 2024 UKY-Depression Screening [...] RN Endo Nurse Roberto Carlos Davis CRNA SKILLED TRADES TEACHER, No role selected Kell Carrera RN Endo Nurse Mady Alvarez Endo Nurse James Morales MD Anesthesiologist MD Daniel Dinero MD Proceduralist Car Lubricator Unknown Endo Nurse 1 Endo Nurse Preprocedure [...] of bowel preparation was evaluated using the [place] Bowel Preparation Scale with scores of: right [...] were documented in this log. Findings Healthy jadr-jh-mmib ileocolonic anastomosis with no bleeding The rectum [...] <6.0% Children and Adolescents <7.5% . Source: [place] Diabetes [employer]. Standards of medical care in diabetes, 2017. Diabetes Care.2017:40 (suppl 1):S1-S135. . HbA1c assay performed by an ion-exchange chromatography method that is certified traceable to the DCCT. 01/15/2019 10:5 6 AM EDT 01/15/2019 12:16 PM EDT us Faith Ruth MD LAB BLOOD ORDERABLES Final Resu lt SUNQUEST from Last 3 Months or Most Recently Relevant to Health Maintenance Insurance AENA [facility] MEDICAID Care Teams Business Operations Analyst Relationship Specialty Start Date End Date Rosemary Fuller PA [address] [place] [address] PCP - General 01/29/21
== END 2025-03-08 23:59 | disposition home or self-care (01) ==
LOC: LAB 12:52
PROVIDERS: PCP Nurse Practitioner; Visit Provider Obstetrics & Gynecology
DX: O35.3XX0 Maternal care for (suspected) damage to fetus from viral disease in mother, not applicable or unspecified (principal); Z3A.00 Weeks of gestation of pregnancy not specified
CPT/HCPCS: 36415; 86644

== ENCOUNTER 2025-03-18 14:41 | Outpatient (CLI) | payer OTHER, SELFPAY ==
--- OUTSIDE RECORDS SUMMARY | 2025-03-18 14:43 | XMS_ITS | Encounter Summary ---
Author Organization [employer] ([place], [place], [place], [place]) Address [address] [place] [address] Care Team Providers Care Drafter Engineering Name Role Phone Unavailable Primary Care Provider Unavailabl e Encounter Details Date Type Department Care Team (Late st Contact Info) Description 10/11/2018 Transcribed Document [facility] [place] [facility] [address] ProviderChula MD [address], [place] [id number] Social History Tobacco Use Types Packs/Day Years [...] - Historical ProviderMD - 10/11/2018 7:35 AM TOOTH CUTTER Event Note Entered On: 10/11/2018 7:37 EST [...] Nurse - other - 10/11/2018 7:35 EST Electronically signed by Shanika Koo Conversion Plant Operator Control Room Operator Cerner at 01/06/2023 4:57 PM CDT documented in this encounter Plan of Treatment Not on file documented as of this encounter Visit Diagnoses Not on filedocumented in this encounter
--- OUTSIDE RECORDS SUMMARY | 2025-03-18 14:43 | XMS_ITS | Encounter Summary ---
Author Organization [employer] ([place], [place], [place], [place]) Address [address] [place] [address] Care Team Providers Care Cut File Clerk Name Role Phone Unavailable Primary Care Provider Unavailabl e Encounter Details Date Type Department Care Team (Late st Contact Info) Description 10/11/2018 Transcribed Document [facility] [place] [facility] [place] [address] ProviderChula MD [address] [place] [address] Social History Tobacco Use Types [...] - Historical ProviderMD - 10/11/2018 6:33 AM SWEDGER Pre Procedure Adult Entered On: 10/11/2018 6:47 EST Performed On: 10/11/2018 6:33 EST by Naa Alonso Nurse - denise Height and Weight, Clinical Dosing Height Source : Stated Height Entry Format : [place] Height, Feet : 5 ft(Converted to: 152 cm, 60 Inch) Height, Inches : 4 Inch(Converted to: 0 ft 4 Inch, 10.16 cm) Clinical Height : 162.56 cm Weight Source : Standing scale Weight Entry Format : [place] Clinical Dosing Weight : 87.73 kg Weight, Pounds : 193 lb Body Surface Area (BSA) : 1.93 m2 Body Mass Index : 33.2 kg/m2 (HI) [place] Body Weight : 54 kg Naa Alonso Nurse - denise - 10/11/2018 6:33 EST Health Histories Smoking [...] Spiritual/Cultural Needs or Requests : No Naa Alnoso Nurse - other - 10/11/2018 6:33 EST [...] Obtained From : Patient Primary Language : Swedish Preferred Communication Mode : Verbal Communication Barrier [...] Scale Risk Level : 0-24 Low Risk [place] Fall Interventions : Adequate lighting, Call device [...] Nurse - denise - 10/11/2018 6:33 EST Valuables and Belongings Valuables and Belongings : Clothing Clothing : Common streetwear Clothing Disposition : With family Naa Alonso Nurse - denise - 10/11/2018 6:33 EST Pain Scale Intensity : 4 Naa Alonso Nurse - other - 10/11/2018 6:33 EST Image 4 - Images currently included in the form version of this document have not been included in the text rendition version of the form. Electronically signed by Shanika Koo Conversion Sewing Machine Attachment Tester Cerner at 01/06/2023 4:52 PM CDT documented in this encounter Plan of Treatment Not on file documented as of this encounter Visit Diagnoses Not on filedocumented in this encounter
--- OUTSIDE RECORDS SUMMARY | 2025-03-18 14:43 | XMS_ITS | Encounter Summary ---
Author Organization [employer] ([place], [place], [place], [place]) Address [address] [place] [address] Care Team Providers Care Surgical Services Assistant Name Role Phone Unavailable Primary Care Provider Unavailabl e Encounter Details Date Type Department Care Team (Late st Contact Info) Description 10/11/2018 Transcribed Document [facility] [place] [facility] [place] [address] ProviderChula MD [address] [place] [address] Social History Tobacco Use Types [...] - Chula ProviderMD - 10/11/2018 8:13 AM DREDGEMASTER [place] Main OR PreOp Summary Primary Physician: JUANY PRICE MD Finalized Date/Time: 10/11/18 10:17:21 Pt. Name: SHIVAM BERNARD D.O.B./Sex: 1985 Female Med Rec #: [id number] Physician: JUANY PRICE MD Financial #: [id number] Pt. Type: O Room/Bed: [facility] Admit/Disch: 10/11/18 04:54:00 - Institution[place] [facility] [place] PreOp Case Times Entry 1 In Preop 10/11/18 05:30:00 Ready for Holding n/a Room Patient Ready for 10/11/18 06:47:00 Surgery Patient Out of Preop 10/11/18 07:35:00 Patient Out of n/a Holding Room Last Modified By: CYNDI LEONARD 10/11/18 10:17:20 SJE PreOp Case Times Audit 10/11/18 10:17:20 Phlebotomy Coordinator: MANDOINMARCK Modifier: [email or web address] <+> 1 Patient Out of Preop 10/11/18 06:47:33 Phlebotomy Coordinator: CRAINMA Modifier: CRAINMA <+> 1 Patient Ready for Surgery Finalized By: CYNDI LEONARD Document Signatures Signed By: CYNDI LEONARD 10/11/18 10:17 documented in this encounter Plan of Treatment Not on file documented as of this encounter Visit Diagnoses Not on filedocumented in this encounter
--- OUTSIDE RECORDS SUMMARY | 2025-03-18 14:43 | XMS_ITS | Encounter Summary ---
Author Organization [employer] ([place], [place], [place], [place]) Address [address] [place] [address] Care Team Providers Care Can Worker Name Role Phone Unavailable Primary Care Provider Unavailabl e Encounter Details Date Type Department Care Team (Late st Contact Info) Description 10/11/2018 Transcribed Document [facility] [place] [facility] [place] [address] ProviderChula MD [address] [place] [address] Social History Tobacco Use Types Packs/Day Years Used Date Smoking Tobacco: Never Assessed Comments Unknown Sex and Gender Information Value Date Recorded Sex Assigned at Female 03/15/2022 8:26 PM CDT Legal Sex Female 8:26 PM CDT Gender Identity Female 03/15/2022 8:26 PM CDT Sexual Orientation Not on file documented as of this encounter Miscellaneous Notes * Manuelitoner Conversion Note - Historical ProviderMD - 10/11/2018 6:12 AM FURNITURE ASSEMBLER AND INSTALLER Pediatric Growth Entered On: 10/11/2018 6:12 EST Performed On: 10/11/2018 6:12 EST by Michelle Le Patient Artist Suspect Height and Weight, Clinical Dosing Height Source : Stated Height Entry Format : [place] Height, Feet : 5 ft(Converted to: 152 cm, 60 Inch) Height, Inches : 4 Inch(Converted to: 0 ft 4 Inch, 10.16 cm) Clinical Height : 162.56 cm Weight Source : Standing scale Weight Entry Format : [place] Clinical Dosing Weight : 87.73 kg Weight, Pounds : 193 lb Body Surface Area (BSA) : 1.93 m2 Body Mass Index : 33.2 kg/m2 (HI) [place] Body Weight : 54 kg Michelle Le Patient Artist Suspect - 10/11/2018 6:12 EST Electronically signed by Hanane [facility] Conversion Taper Machine Cerner at 01/06/2023 5:04 PM CDT documented in this encounter Plan of Treatment Not on file documented as of this encounter Visit Diagnoses Not on filedocumented in this encounter
--- OUTSIDE RECORDS SUMMARY | 2025-03-18 14:43 | XMS_ITS | Encounter Summary ---
Author Organization [employer] ([place], [place], [place], [place]) Address [address] [place] [address] Care Team Providers Care Cook Chef Name Role Phone Unavailable Primary Care Provider Unavailabl e Encounter Details Date Type Department Care Team (Late st Contact Info) Description 10/11/2018 Transcribed Document [facility] [place] [facility] [place] [address] ProviderChula MD [address] [place] [address] Social History Tobacco Use Types [...] - Chula ProviderMD - 10/11/2018 8:13 AM CONSTRUCTION CARPENTER [place] Main OR PostOp Summary Primary Physician: JUANY PRICE MD Finalized Date/Time: 10/11/18 13:49:18 Pt. Name: SHIVAM BERNARD D.O.B./Sex: 1985 Female Med Rec #: [id number] Physician: JUANY PRICE MD Financial #: [id number] Pt. Type: O Room/Bed: [facility] Admit/Disch: 10/11/18 04:54:00 - Institution: [facility] Main [place] PostOp Case Times Entry 1 In PACU II 10/11/18 11:36:00 Ready for PACU II 10/11/18 13:44:00 Discharge Discharge from PACU 10/11/18 13:44:00 II Last Modified By: Elba Ram Rn 10/11/18 13:49:17 [facility] Main OR PostOp Case Times Audit 10/11/18 13:49:17 Ore Feeder: STEPH Modifier: STEPH <+> 1 Ready for PACU II Discharge <+> 1 Discharge from PACU II Finalized By: Elba Ram, Rn Document Signatures Signed By: Elba Ram Rn 10/11/18 13:49 Electronically signed by Hanane [facility] Conversion Ovens Supervisor Cerner at 01/06/2023 5:02 PM CDT documented in this encounter Plan of Treatment Not on file documented as of this encounter Visit Diagnoses Not on filedocumented in this encounter
--- OUTSIDE RECORDS SUMMARY | 2025-03-18 14:43 | XMS_ITS | Encounter Summary ---
Author Organization [employer] ([place], [place], [place], [place]) Address [address] [place] [address] Care Team Providers Care Train Control Technician Name Role Phone Unavailable Primary Care Provider Unavailabl e Encounter Details Date Type Department Care Team (Late st Contact Info) Description 10/11/2018 Transcribed Document [facility] [place] [facility] [place] [address] ProviderChula MD [address] [place] [address] Social History Tobacco Use Types [...] - Chula ProviderMD - 10/11/2018 8:13 AM METALLURGICAL OR MATERIALS TECHNICIAN E Main OR PACU Summary Primary Physician: JUANY PRICE MD Finalized Date/Time: 10/11/18 11:43:57 Pt. Name: SHIVAM BERNARD D.O.B./Sex: 1985 Female Med Rec #: [id number] Physician: JUANY PRICE MD Financial #: [id number] Pt. Type: O Room/Bed: [facility] Admit/Disch: 10/11/18 04:54:00 - [place] [facility] [place] PACU Case Times Entry 1 In PACU I 10/11/18 09:35:00 Ready for PACU 10/11/18 10:45:00 Discharge Discharge from PACU 10/11/18 11:30:00 I Last Modified By: EASTON ROSARIO RN 10/11/18 11:43:38 [facility] Main OR PACU Acuity Entry 1 Start Time 10/11/18 10:45:00 Stop Time 10/11/18 11:30:00 Acuity Level [facility] PACU Acuity I Last Modified By: EASTON ROSARIO, JUSTINA 10/11/18 11:43:55 Finalized By: EASTON ROSARIO, RN Document Signatures Signed By: EASTON ROSARIO RN 10/11/18 11:43 Electron[address] signed [address] Hanane [facility] Conversion Loom Repairer Cerner at 01/06/2023 4:48 PM CDT documented in this encounter Plan of Treatment Not on file documented as of this encounter Visit Diagnoses Not on filedocumented in this encounter
--- OUTSIDE RECORDS SUMMARY | 2025-03-18 14:43 | XMS_ITS | Encounter Summary ---
Author Organization [employer] ([place], [place], [place], [place]) Address [address] [place] [address] Care Team Providers Care Clinical Documentation Nurse Name Role Phone Unavailable Primary Care Provider Unavailabl e Encounter Details Date Type Department Care Team (Late st Contact Info) Description 10/11/2018 Transcribed Document [facility] [place] [facility] [place] [address] ProviderChula MD [address] [place] [address] Social History Tobacco Use Types [...] - Historical ProviderMD - 10/11/2018 8:12 AM GLASS LINED TANK REPAIRER Peripheral Nerve Block Entered On: 10/11/2018 8:13 EST Performed On: 10/11/2018 8:12 EST by Naa Alonso Nurse - denise Peripheral Nerve Block Site Marked and Visible [...] End Date/Time : 10/11/2018 8:00 EST Naa Alonso, Nurse - other - 10/11/2018 8:12 EST Electronically signed by [facility] Conversion Furniture Sales Consultant Cerner at 01/06/2023 4:48 PM CDT documented in this encounter Plan of Treatment Not on file documented as of this encounter Visit Diagnoses Not on filedocumented in this encounter
--- OUTSIDE RECORDS SUMMARY | 2025-03-18 14:43 | XMS_ITS | Encounter Summary ---
Author Organization [employer] ([place], [place], [place], [place]) Address [address] [place] [address] Care Team Providers Care Chief Estimator Name Role Phone Unavailable Primary Care Provider Unavailabl e Encounter Details Date Type Department Care Team (Late st Contact Info) Description 10/11/2018 Transcribed Document [facility] [place] [facility] [place] [address] ProviderChula MD [address] [place] [address] Social History Tobacco Use Types [...] Conversion Note - Chula ProviderMD - 10/11/2018 9:28 AM BULK TANK CAR UNLOADER DATE OF PROCEDURE: 10/11/2018 ORTHOPEDIC OPERATIVE NOTE PREOPERATIVE DIAGNOSIS(ES): Right L5-S1 herniated nucleus pulposus. POSTOPERATIVE DIAGNOSIS(ES): Right L5-S1 herniated nucleus pulposus. PROCEDURE: Right L5-S1 microdiscectomy, CPT code-54310. SURGEON: Chase Recinos MD CHIEF SECURITY AND SAFETY OFFICER: Benjy. COMPLICATIONS: None. SPECIMENS: None. IMPLANTS: None. ESTIMATED BLOOD LOSS: 25 mL. DESCRIPTION OF PROCEDURE: Patient was identified in the holding area at [facility], transferred to the operative room under the [...]
--- OUTSIDE RECORDS SUMMARY | 2025-03-18 14:44 | XMS_ITS | Clinical Summary ---
Author Organization [employer] ([place], [place], [place], [place]) Address [address] [place] [address] Care Team Providers Care Livestock Nutritionist Name Role Phone Unavailable Primary Care Provider [...]
--- OUTSIDE RECORDS SUMMARY | 2025-03-18 14:44 | XMS_ITS | Referral Summary ---
Author Organization [employer] ([place], [place], [place], [place]) Address [address] [place] [address] Care Team Providers Care Anesthesiologist Name Role Phone Unavailable Primary Care Provider [...]
--- OUTSIDE RECORDS SUMMARY | 2025-03-18 14:44 | XMS_ITS | Clinical Summary ---
Author Organization [facility] Address [address] [place] [address] Care Team Providers Care Gold Leaf Roller Name Role Phone Rosemary Fuller Primary Care [...] UKY-HIV Screening 1985 UKY-Hepatitis C Screening 1985 [facility]Y-Infant/Child/Adol SDOH Screenings 1985 Diabetes: Dental Exam 1995 [...] Tdap) 09/12/2023 09/12/2013 Colonoscopy 12/29/2023 12/29/2021, 11/13/2019 [id number] Vaccine ( - season) 2024 UKY-Depression Screening [...] RN Endo Nurse Roberto Carlos Davis CRNA SENIOR ELECTRICAL DESIGN ENGINEER, No role selected Kell Carrera RN Endo Nurse Mady Alvarez Endo Nurse James Morales MD Anesthesiologist MD Daniel Dinero MD Proceduralist Gathering Worker Unknown Endo Nurse 1 Endo Nurse Preprocedure [...] of bowel preparation was evaluated using the [place] Bowel Preparation Scale with scores of: right [...] were documented in this log. Findings Healthy ibqx-fy-gjdy ileocolonic anastomosis with no bleeding The rectum [...] <6.0% Children and Adolescents <7.5% . Source: [place] Diabetes [employer]. Standards of medical care in diabetes, 2017. Diabetes Care.2017:40 (suppl 1):S1-S135. . HbA1c assay performed by an ion-exchange chromatography method that is certified traceable to the DCCT. 01/15/2019 10:5 6 AM EDT 01/15/2019 12:16 PM EDT us Faith Ruth MD LAB BLOOD ORDERABLES Final Resu lt SUNQUEST from Last 3 Months or Most Recently Relevant to Health Maintenance Insurance [facility]ENA [facility] MEDICAID Care Teams Gold Leaf Roller Relationship Specialty Start Date End Date Rosemary Fuller PA [address] [place] [address] PCP - General 01/29/21
--- OUTSIDE RECORDS SUMMARY | 2025-03-18 14:44 | XMS_ITS | Encounter Summary ---
Author Organization [employer] ([place], [place], [place], [place]) Address [address] [place] [address] Care Team Providers Care Negative Notcher Name Role Phone Unavailable Primary Care Provider Unavailabl e Encounter Details Date Type Department Care Team (Late st Contact Info) Description 09/27/2018 Transcribed Document [facility] [place] [facility] [place] [address] ProviderChula MD [address] [place] [address] Social History Tobacco Use Types [...] Cerner Conversion Note - Chula ProviderMD - 09/27/2018 10:30 AM FIRE RANGER Patient: SHIVAM BERNARD Age: 33 Years Sex: [...]
--- OUTSIDE RECORDS SUMMARY | 2025-03-18 14:44 | XMS_ITS | Encounter Summary ---
Author Organization [employer] ([place], [place], [place], [place]) Address [address] [place] [address] Care Team Providers Care Supervisor Diagnostic Name Role Phone Unavailable Primary Care Provider Unavailabl e Encounter Details Date Type Department Care Team (Late st Contact Info) Description 09/27/2018 Transcribed Document [facility] [place] [facility] [place] [address] ProviderChula MD [address] [place] [address] Social History Tobacco Use Types [...] Conversion Note - Chula ProviderMD - 09/27/2018 10:11 AM TRAVEL REGISTERED NURSE ICU PAT Adult Entered On: 09/27/2018 10:15 EST [...] Source : Stated Height Entry Format : [place] Height, Feet : 5 ft(Converted to: 152 cm, 60 Inch) Height, Inches : 4 Inch(Converted to: 0 ft 4 Inch, 10.16 cm) Clinical Height : 162.56 cm Weight Source : Standing scale Weight Entry Format : [place] Clinical Dosing Weight : 88.18 kg Weight, Pounds : 194 lb Body Surface Area (BSA) : 1.93 m2 Body Mass Index : 33.4 kg/m2 (HI) [place] Body Weight : 54 kg Veronica Marin [...] Obtained From : Patient Primary Language : Slovenian Preferred Communication Mode : Verbal Communication Barrier [...]
--- OUTSIDE RECORDS SUMMARY | 2025-03-18 14:44 | XMS_ITS | Encounter Summary ---
Author Organization [employer] ([place], [place], [place], [place]) Address [address] [place] [address] Care Team Providers Care Robot Operator Name Role Phone Unavailable Primary Care Provider Unavailabl e Encounter Details Date Type Department Care Team (Late st Contact Info) Description 10/11/2018 Transcribed Document [facility] [place] [facility] [place] [address] ProviderChula MD [address] [place] [address] Social History Tobacco Use Types [...] - Historical ProviderMD - 10/11/2018 7:31 AM TROUBLE CLERK Event Note Entered On: 10/11/2018 7:33 EST [...]
--- OUTSIDE RECORDS SUMMARY | 2025-03-18 14:44 | XMS_ITS | Encounter Summary ---
Author Organization [employer] ([place], [place], [place], [place]) Address [address] [place] [address] Care Team Providers Care Licensed Tax Consultant Name Role Phone Unavailable Primary Care Provider Unavailabl e Encounter Details Date Type Department Care Team (Late st Contact Info) Description 10/11/2018 Transcribed Document [facility] [place] [facility] [place] [address] ProviderChula MD [address] [place] [address] Social History Tobacco Use Types [...] - Chula ProviderMD - 10/11/2018 8:13 AM MANAGER ACUTE POLINA Main OR IntraOp Summary Primary Physician: JUANY PRICE MD Finalized Date/Time: 10/11/18 09:39:55 Pt. Name: RAIN BERNARDLONNIE Acevedo /Sex: 1985 Female Med Rec #: [id number] Physician: JUANY PRICE MD Financial #: [id number] Pt. Type: O Room/Bed: [facility] Admit/Disch: 10/11/18 04:54:00 - Institution: [facility] [place] Case Attendance Entry 1 Entry 2 Entry 3 Case Attendee JUANY PRICE MD BRUNNER, RICHARD V, Chelsey Bran Rn-Surgery Role Performed Surgeon/Proceduralist, SCREWMAKER AUTOMATIC/Nurse Custodian Manager Pasting Inspector, First First Time In 10/11/18 07:39:00 10/11/18 [...] BRUNER, HAVEN Role Performed Scrub, First Physician occupational therapy assistant Garnisher Time In 10/11/18 07:39:00 10/11/18 07:39:00 10/11/18 07:39:00 Time Out 10/11/18 09:33:00 10/11/18 09:33:00 10/11/18 09:33:00 Procedure Lumbar Microdiscectomy Lumbar Microdiscectomy Lumbar Microdiscectomy Other Attendee Superficial Wound Closed By: Last Modified By: Chelsey Mae Demike, Cynthia Y, Demike, Cynthia Y, Rn-Surgery 10/11/18 Rn-Surgery 10/11/18 Rn-Surgery 10/11/18 09:33:47 09:33:47 09:33:47 Entry 7 Entry 8 Case Attendee FABIAN CRUZ, RN [place] [address] Role Performed Pasting Inspector, Second Scrub, Second Time In 10/11/18 08:48:00 10/11/18 09:02:00 Time Out 10/11/18 09:02:00 10/11/18 09:33:00 Procedure Lumbar Microdiscectomy Lumbar Microdiscectomy Other Attendee Superficial Wound Closed By: Last Modified By: Chelsey Mae Demike, Cynthia Y, Rn-Surgery 10/11/18 Rn-Surgery 10/11/18 09:33:47 09:33:47 [facility] IntraOp Case Attendance Audit 10/11/18 09:33:47 Clutch Rebuilder: [id number] Modifier: [id number] 1 <*> Procedure Lumbar Microdiscectomy 2 <+> [...] 8 <*> Procedure Lumbar Microdiscectomy 10/11/18 09:21:03 Clutch Rebuilder: [id number] Modifier: [id number] 1 <+> Time Out 1 <*> Procedure Lumbar Microdiscectomy 10/11/18 09:04:27 Clutch Rebuilder: [id number] Modifier: [id number] <+> 1 Procedure 2 <*> Procedure Lumbar Microdiscectomy 3 <*> Procedure Lumbar Microdiscectomy 4 <*> Procedure Lumbar Microdiscectomy 5 <*> Procedure Lumbar Microdiscectomy 6 <*> Procedure Lumbar Microdiscectomy 7 <*> Procedure Lumbar Microdiscectomy 8 <*> Procedure Lumbar Microdiscectomy 10/11/18 09:04:05 Clutch Rebuilder: [id number] Modifier: [id number] <+> 7 Case Attendee <+> 7 Role Performed <+> 7 Time In <+> 7 Time Out <+> 7 Procedure <+> 8 Case Attendee <+> 8 Role Performed <+> 8 Time In <+> 8 Procedure 10/11/18 08:29:38 Clutch Rebuilder: [id number] Modifier: [id number] 2 <*> Procedure Lumbar Microdiscectomy 3 <*> Procedure Lumbar Microdiscectomy 4 <*> Procedure Lumbar Microdiscectomy 5 <*> Procedure Lumbar Microdiscectomy 6 <+> Time In 6 <*> Procedure Lumbar Microdiscectomy 10/11/18 08:24:25 Clutch Rebuilder: [id number] Modifier: [id number] 2 <*> Procedure Lumbar Microdiscectomy 3 <*> Procedure Lumbar Microdiscectomy 4 <*> Procedure Lumbar Microdiscectomy 5 <+> Time In 5 <*> Procedure Lumbar Microdiscectomy <+> 6 Case Attendee <+> 6 Role Performed <+> 6 Procedure 10/11/18 08:13:49 Clutch Rebuilder: [id number] Modifier: [id number] <+> 1 Time In 2 <+> Time [...] [facility] IntraOp Case Times Audit 10/11/18 09:33:44 Clutch Rebuilder: [id number] Modifier: [id number] <+> 1 Out Room Time <+> 1 Stop Time 10/11/18 09:33:20 Clutch Rebuilder: [id number] Modifier: [id number] <+> 1 Stop Time 10/11/18 08:13:56 Clutch Rebuilder: [id number] Modifier: [id number] <+> 1 Start Time [facility] IntraOp Cautery [...] 08:35:57 [facility] IntraOp Cautery Audit 10/11/18 08:35:57 Clutch Rebuilder: [id number] Modifier: [id number] 1 <*> Grounding Pad Site Right Lower [...] [facility] IntraOp Counts Final Audit 10/11/18 09:21:17 Clutch Rebuilder: [id number] Modifier: [id number] 1 <*> Procedure Lumbar Microdiscectomy 1 <+> [...] CARLTON HARKINS CRNA Last Modified By: Chelsey Mae Rn-Surgery 10/11/18 09:33:33 S[facility] IntraOp Dressing and [...] Safety Precautions Followed Last Modified By: Chelsey Mae, Rn-Surgery 10/11/18 08:26:46 S[facility] IntraOp General Case Promotions Associate 1 Case Information OR OR 01 SJE Case Level 1 Room Verified Yes Wound Class I - Clean Specialty SN Neurosurgery Anesthesia Type General ASA Class 2 Diagnosis Preop Diagnosis LOW BACK PAIN Postop Same As Preop Yes Postop Diagnosis LOW BACK PAIN Last Modified By: Chelsey Mae, Rn-Surgery 10/11/18 08:28:51 [facility] IntraOp Intraoperative Assessment Entry 1 Valid History / Yes Physical in Chart Preoperative Yes Checklist Reviewed/Evaluated Allergies Reviewed Yes Patient is Latex No Sensitive Isolation Not applicable Precautions Noted Level of WDL Consciousness (WDL = Alert, Oriented to Person, Place, and Time) Skin Assessment Yes Verified Present Upon IVs Arrival to OR Last Modified By: Chelsey Mae, Rn-Surgery 10/11/18 08:31:45 [facility] IntraOp Intraoperative Equipment Entry 1 Type Equipment Equipment Equipment Petty Suction System Intraop Monitoring Antiembolic Devices Antiembolic Devices Sequential compression device, knee high Antiembolic Device Bilateral Location Scopes Photo/Video Documentation Photo No Video No Last Modified By: Chelsey Mae, Rn-Surgery 10/11/18 08:29:18 [facility] IntraOp Medication Admin Entry 1 Entry 2 Entry 3 Medication/Irrigant Depo-Medrol 80 mg Avitene 1Gm powder - Marcaine 0.25% 30ml [id number] vial - [id number] Combo Med List Time Administered Route of [...] By Chelsey Mae, Rn-Surgery, CARLTON HARKINS V, NICOLE, GERALD MERIDA PA-C Position Verified Positioning Yes Verified by Anesthesia Positioning Yes Verified by Surgeon Last Modified By: Chelsey Mae, Rn-Surgery 10/11/18 08:31:32 S[facility] IntraOp Sign In [...] Intra Op Sign Out Audit 10/11/18 09:39:50 Clutch Rebuilder: [id number] Modifier: [id number] <+> 1 RN Sign Out Signature Date/Time <+> 1 Urinary Catheter Documented in Amos [facility] IntraOp Skin Prep Entry 1 Procedure Lumbar Microdiscectomy Prescribed Yes Pre-Surgical Prep Completed Prep Area LOWER BACK Intraop Prep Integumentary WDL Assessment WDL Prep Agents Chloraprep Prep by Chelsey Mae Rn-Surgery Hair Removal Methods No hair removal [...] [facility] IntraOp Surgical Procedures Audit 10/11/18 09:33:24 Clutch Rebuilder: [id number] Modifier: [id number] 1 <*> Procedure Lumbar Microdiscectomy 1 <+> Stop 10/11/18 09:21:35 Clutch Rebuilder: [id number] Modifier: [id number] 1 <*> Procedure Lumbar Microdiscectomy 1 <+> Specialty 10/11/18 09:04:26 Clutch Rebuilder: [id number] Modifier: [id number] <+> 1 Primary Procedure <+> 1 Primary Surgeon <+> 1 Start <+> 1 Wound Class <+> 1 Anesthesia Type <+> 1 Additional Procedure Description [facility] IntraOp Temp Regulation Devices Entry 1 Temp Regulation Temperature Forced Air Warming Regulation Device device Temperature Upper body Regulation Site Temperature Device 43 Setting Temperature CARLTON HARKINS V SCREWMAKER AUTOMATIC Regulation Device Applied by Last Modified By: [...] [facility] IntraOp Time Out Audit 10/11/18 08:33:51 Clutch Rebuilder: [id number] Modifier: [id number] 1 <+> Beta Thalia Administered 1 <+> [...] Mae Rn-Surgery 10/11/18 09:39 Electronically signed by aHnane [facility] Conversion Heavy Machinery Operator Cerner at 01/06/2023 4:42 PM CDT documented in this encounter Plan of Treatment Not on file documented as of this encounter Visit Diagnoses Not on filedocumented in this encounter
[2025-03-18 16:23] LABS: Alanine Aminotransferase 17 U/L (12-78); Albumin Level 3.7 g/dl (3.5-5.0); Albumin/Globulin Ratio 1.3 (1.1-1.8); Alkaline Phosphatase 116 U/L (38-126); Anion Gap 12.6 mEq/L (5-15); Aspartate Amino Transferase 28 U/L (14-36); Bilirubin,Total 0.4 mg/dl (0.2-1.3); Blood Urea Nitrogen 4 mg/dl (7-17); Calcium 9.5 mg/dl (8.4-10.2); Carbon Dioxide 26 mmol/L (22.0-30.0); Chloride 99 mmol/L (98-107); Creatinine,Serum 0.60 mg/dl (0.52-1.04); Estimated Glomerular Filt Rate 111 ml/min (>60); GFR (African American) 135 ML/MIN (>60); Globulin 2.8 g/dL (1.3-3.2); Glucose 79 mg/dl (74-100); Potassium 4.6 mmoL/L (3.5-5.1); Sodium 133 mmol/L (136-145); Total Protein,Serum 6.5 g/dl (6.3-8.2)
== END 2025-03-18 23:59 | disposition home or self-care (01) ==
LOC: LAB 14:42
PROVIDERS: PCP Nurse Practitioner; Visit Provider Obstetrics & Gynecology
DX: O99.713 Diseases of the skin and subcutaneous tissue complicating pregnancy, third trimester (principal); O99.719 Diseases of the skin and subcutaneous tissue complicating pregnancy, unspecified trimester; L29.9 Pruritus, unspecified
CPT/HCPCS: 36415; 80053; 82239

== ENCOUNTER 2025-04-01 10:29 | Outpatient (CLI) | payer OTHER, SELFPAY ==
--- NOTE | 2025-04-01 10:30 | US_ITS ---
PROCEDURE: US OB BIOPHYSICAL PROFILE CLINICAL INDICATION: IUGR,AMA,Chronic HTN-BPP, SDRatio, BHAVYA COMPARISON: US US OB <= 14 WEEKS FETUS from 10/31/2024 FINDINGS: Transabdominal sonographic images of the uterus were obtained. From her established due date she is 31weeks 6days. The following parameters are obtained: Viable Fetus in the cephalic presentation with an anterolateral placenta grade 1. The cervix measures 3.40 cm Measurements: heart Rate = 142bpm Amniotic fluid index: 10.91cm, MVP 4.52 cm Qualitative AFV:2 Breathing movements: 2 Gross Body Movements: 2 Tone: 2 Biophysical profile score: 8 Doppler evaluation of the umbilical artery: SD ratio: 2.53-3.3 No obvious anomalies evident.Kidneys, profile, stomach, bladder, four-chamber heart, three-vessel cord appear normal. IMPRESSION: 1. Viable fetus in the cephalic presentation with an anterolateral placenta grade 1. 2. The fluid is within normal limits with an amniotic fluid index 10.91 cm, MVP 4.52 cm. 3. Biophysical profile is 8/8 with good breathing movement and movement seen. 4. SD ratio is normal 2.53-3.30. 5. Limited anatomical scan appears normal. Dictated by: Juan F Mcallister MD 04/01/2025 16:18 Juan F Mcallister MD in [place] 04/01/2025 16:18
--- OUTSIDE RECORDS SUMMARY | 2025-04-01 10:51 | XMS_ITS | Clinical Summary ---
Author Organization [employer] ([place], [place], [place], [place]) Address [address] [place] [address] Care Team Providers Care Behavioral Instructor Name Role Phone Unavailable Primary Care Provider [...]
--- OUTSIDE RECORDS SUMMARY | 2025-04-01 10:51 | XMS_ITS | Encounter Summary ---
Author Organization [employer] ([place], [place], [place], [place]) Address [address] [place] [address] Care Team Providers Care Plumbing Installer Name Role Phone Unavailable Primary Care Provider Unavailabl e Encounter Details Date Type Department Care Team (Late st Contact Info) Description 10/11/2018 Transcribed Document [facility] [place] [facility] [place] [address] ProviderChula MD [address] [place] [address] Social History Tobacco Use Types [...] - Chula ProviderMD - 10/11/2018 8:13 AM NITRO WORKER E Main OR PACU Summary Primary Physician: JUANY PRICE MD Finalized Date/Time: 10/11/18 11:43:57 Pt. Name: SHIVAM BERNARD D.O.B./Sex: 1985 Female Med Rec #: [id number] Physician: JUANY PRICE MD Financial #: [id number] Pt. Type: O Room/Bed: [facility] [place] Admit/Disch: 10/11/18 04:54:00 - Institution: [facility] Main OR PACU Case Times Entry 1 [...] RN 10/11/18 11:43 Electronically signed by Hanane [facility] Conversion Roll Edge Machine Operator Cerner at 01/06/2023 4:48 PM CDT documented in this encounter Plan of Treatment Not on file documented as of this encounter Visit Diagnoses Not on filedocumented in this encounter
--- OUTSIDE RECORDS SUMMARY | 2025-04-01 10:51 | XMS_ITS | Encounter Summary ---
Author Organization [employer] ([place], [place], [place], [place]) Address [address] [place] [address] Care Team Providers Care Technical Producer Name Role Phone Unavailable Primary Care Provider Unavailabl e Encounter Details Date Type Department Care Team (Late st Contact Info) Description 09/27/2018 Transcribed Document [facility] [place] [address] ProviderChula MD [address] [place] [address] Social History Tobacco Use Types [...] - Chula ProviderMD - 09/27/2018 10:30 AM MANUFACTURING WEAVER Patient: SHIVAM BERNARD Age: 33 Years Sex: [...]
--- OUTSIDE RECORDS SUMMARY | 2025-04-01 10:51 | XMS_ITS | Encounter Summary ---
Author Organization [employer] ([place], [place], [place], [place]) Address [address] [place] [address] Care Team Providers Care Trimmer Hand Name Role Phone Unavailable Primary Care Provider Unavailabl e Encounter Details Date Type Department Care Team (Late st Contact Info) Description 10/11/2018 Transcribed Document [facility] [place] [facility] [place] [address] ProviderChula MD [address] [place] [address] Social History Tobacco Use Types [...] - Historical ProviderMD - 10/11/2018 7:31 AM TREE DEADENER Event Note Entered On: 10/11/2018 7:33 EST [...]
--- OUTSIDE RECORDS SUMMARY | 2025-04-01 10:51 | XMS_ITS | Encounter Summary ---
Author Organization [employer] ([place], [place], [place], [place]) Address [address] [place] [address] Care Team Providers Care Clinical Documentation Consultant Name Role Phone Unavailable Primary Care Provider Unavailabl e Encounter Details Date Type Department Care Team (Late st Contact Info) Description 10/11/2018 Transcribed Document [facility] [place] [facility] [place] [address] ProviderChula MD [address], [place] [id number] Social History Tobacco Use Types Packs/Day Years [...] - Historical ProviderMD - 10/11/2018 7:35 AM TRANSIT PLANNING MANAGER Event Note Entered On: 10/11/2018 7:37 EST [...]
--- OUTSIDE RECORDS SUMMARY | 2025-04-01 10:51 | XMS_ITS | Encounter Summary ---
Author Organization [employer] ([place], [place], [place], [place]) Address [address] [place] [address] Care Team Providers Care Coper Hand Name Role Phone Unavailable Primary Care Provider Unavailabl e Encounter Details Date Type Department Care Team (Late st Contact Info) Description 10/11/[address] 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 Conversion Network Relations Consultant Cerner at 01/06/2023 5:04 PM CDT documented in this encounter Plan of Treatment Not on file documented as of this encounter Visit Diagnoses Not on filedocumented in this encounter
--- OUTSIDE RECORDS SUMMARY | 2025-04-01 10:51 | XMS_ITS | Encounter Summary ---
Author Organization [employer] ([place], [place], [place], [place]) Address [address] [place] [address] Care Team Providers Care Ore Puncher Name Role Phone Unavailable Primary Care Provider Unavailabl e Encounter Details Date Type Department Care Team (Late st Contact Info) Description 10/11/2018 Transcribed Document [facility] [place] [facility] [place] [address] ProviderChula MD [address] [place] [address] Social History Tobacco Use Types [...] - Chula ProviderMD - 10/11/2018 8:13 AM DUST COLLECTOR OPERATOR POLINA Main OR IntraOp Summary Primary Physician: JUANY PRICE MD Finalized Date/Time: 10/11/18 09:39:55 Pt. Name: SUNIL BERNARDLONNIE Acevedo /Sex: 1985 Female Med Rec #: [id number] Physician: JUANY PRICE MD Financial #: [id number] Pt. Type: O Room/Bed: [facility] Admit/Disch: 10/11/18 04:54:00 - [place] [facility] [place] Case Attendance Entry 1 Entry 2 Entry 3 Case Attendee JUANY PRICE MD BRUNNER, RICHARD V, Chelsey Bran Rn-Surgery Role Performed Surgeon/Proceduralist, RESTRIKE HAMMER OPERATOR/Nurse Motorcycle Service Technician Hop Farm Worker, First First Time In 10/11/18 07:39:00 10/11/18 [...] BRUNER, HAVEN Role Performed Scrub, First Physician special ed assistant Grease Renderer Time In 10/11/18 07:39:00 10/11/18 07:39:00 10/11/18 07:39:00 Time Out 10/11/18 09:33:00 10/11/18 09:33:00 10/11/18 09:33:00 Procedure Lumbar Microdiscectomy Lumbar Microdiscectomy Lumbar Microdiscectomy Other Attendee Superficial Wound Closed By: Last Modified By: Chelsey Mae Demike, Cynthia Y, Demike, Cynthia Y, Rn-Surgery 10/11/18 Rn-Surgery 10/11/18 Rn-Surgery 10/11/18 09:33:47 09:33:47 09:33:47 Entry 7 Entry 8 Case Attendee FABIAN CRUZ, RN [place] [address] ST Role Performed Hop Farm Worker, Second Scrub, Second Time In 10/11/18 08:48:00 10/11/18 09:02:00 Time Out 10/11/18 09:02:00 10/11/18 09:33:00 Procedure Lumbar Microdiscectomy Lumbar Microdiscectomy Other Attendee Superficial Wound Closed By: Last Modified By: Chelsey Mae Demike, Cynthia Y, Rn-Surgery 10/11/18 Rn-Surgery 10/11/18 09:33:47 09:33:47 [facility] IntraOp Case Attendance Audit 10/11/18 09:33:47 Track Welder: [id number] Modifier: [id number] 1 <*> Procedure Lumbar Microdiscectomy 2 <+> [...] 8 <*> Procedure Lumbar Microdiscectomy 10/11/18 09:21:03 Track Welder: [id number] Modifier: [id number] 1 <+> Time Out 1 <*> Procedure Lumbar Microdiscectomy 10/11/18 09:04:27 Track Welder: [id number] Modifier: [id number] <+> 1 Procedure 2 <*> Procedure Lumbar Microdiscectomy 3 <*> Procedure Lumbar Microdiscectomy 4 <*> Procedure Lumbar Microdiscectomy 5 <*> Procedure Lumbar Microdiscectomy 6 <*> Procedure Lumbar Microdiscectomy 7 <*> Procedure Lumbar Microdiscectomy 8 <*> Procedure Lumbar Microdiscectomy 10/11/18 09:04:05 Track Welder: [id number] Modifier: [id number] <+> 7 Case Attendee <+> 7 Role Performed <+> 7 Time In <+> 7 Time Out <+> 7 Procedure <+> 8 Case Attendee <+> 8 Role Performed <+> 8 Time In <+> 8 Procedure 10/11/18 08:29:38 Track Welder: [id number] Modifier: [id number] 2 <*> Procedure Lumbar Microdiscectomy 3 <*> Procedure Lumbar Microdiscectomy 4 <*> Procedure Lumbar Microdiscectomy 5 <*> Procedure Lumbar Microdiscectomy 6 <+> Time In 6 <*> Procedure Lumbar Microdiscectomy 10/11/18 08:24:25 Track Welder: [id number] Modifier: [id number] 2 <*> Procedure Lumbar Microdiscectomy 3 <*> Procedure Lumbar Microdiscectomy 4 <*> Procedure Lumbar Microdiscectomy 5 <+> Time In 5 <*> Procedure Lumbar Microdiscectomy <+> 6 Case Attendee <+> 6 Role Performed <+> 6 Procedure 10/11/18 08:13:49 Track Welder: [id number] Modifier: [id number] <+> 1 Time In 2 <+> Time [...] [facility] IntraOp Case Times Audit 10/11/18 09:33:44 Track Welder: [id number] Modifier: [id number] <+> 1 Out Room Time <+> 1 Stop Time 10/11/18 09:33:20 Track Welder: [id number] Modifier: [id number] <+> 1 Stop Time 10/11/18 08:13:56 Track Welder: [id number] Modifier: [id number] <+> 1 Start Time [facility] IntraOp Cautery [...] 08:35:57 SJE IntraOp Cautery Audit 10/11/18 08:35:57 Track Welder: [id number] Modifier: [id number] 1 <*> Grounding Pad Site Right Lower [...] S[facility] IntraOp Counts Final Audit 10/11/18 09:21:17 Track Welder: [id number] Modifier: [id number] 1 <*> Procedure Lumbar Microdiscectomy 1 <+> [...] Rn-Surgery 10/11/18 08:26:46 SJE IntraOp General Case Wet End Supervisor 1 Case Information OR OR 01 SJE [...] Avitene 1Gm powder - Marcaine 0.25% 30ml [id number] vial - [id number] Combo Med List Time Administered Route of [...] Intra Op Sign Out Audit 10/11/18 09:39:50 Track Welder: [id number] Modifier: [id number] <+> 1 RN Sign Out Signature Date/Time <+> 1 Urinary Catheter Documented in Amos SJE IntraOp Skin Prep Entry 1 Procedure Lumbar Microdiscectomy Prescribed Yes Pre-Surgical Prep Completed Prep Area LOWER BACK Intraop Prep Integumentary WDL Assessment WDL Prep Agents Chloraprep Prep by hCelsey Mae Rn-Surgery Hair Removal Methods No hair [...] SJE IntraOp Surgical Procedures Audit 10/11/18 09:33:24 Track Welder: [id number] Modifier: [id number] 1 <*> Procedure Lumbar Microdiscectomy 1 <+> Stop 10/11/18 09:21:35 Track Welder: [id number] Modifier: [id number] 1 <*> Procedure Lumbar Microdiscectomy 1 <+> Specialty 10/11/18 09:04:26 Track Welder: [id number] Modifier: [id number] <+> 1 Primary Procedure <+> 1 Primary Surgeon <+> 1 Start <+> 1 Wound Class <+> 1 Anesthesia Type <+> 1 Additional Procedure Description S[facility] IntraOp Temp Regulation Devices Entry 1 Temp Regulation Temperature Forced Air Warming Regulation Device device Temperature Upper body Regulation Site Temperature Device 43 Setting Temperature CARLTON HARKINS V RESTRIKE HAMMER OPERATOR Regulation Device Applied by Last Modified By: [...] SJE IntraOp Time Out Audit 10/11/18 08:33:51 Track Welder: [id number] Modifier: [id number] 1 <+> Beta Thalia Administered 1 <+> [...] Rn-Surgery 10/11/18 09:39 Electronically signed by Hanane [facility] Conversion Lens Maker Cerner at 01/06/2023 4:42 PM CDT documented in this encounter Plan of Treatment Not on file documented as of this encounter Visit Diagnoses Not on filedocumented in this encounter
--- OUTSIDE RECORDS SUMMARY | 2025-04-01 10:51 | XMS_ITS | Encounter Summary ---
Author Organization [employer] ([place], [place], [place], [place]) Address [address] [place] [address] Care Team Providers Care Fish Tender Name Role Phone Unavailable Primary Care Provider Unavailabl e Encounter Details Date Type Department Care Team (Late st Contact Info) Description 10/11/2018 Transcribed Document [facility] [place] [facility] [place] [address] ProviderChula MD [address] [place] [address] Social History Tobacco Use Types [...] - Chula ProviderMD - 10/11/2018 8:13 AM PROPERTY INSURANCE CLAIMS EXAMINER POL[place] Main OR PreOp Summary Primary Physician: JUANY PRICE MD Finalized Date/Time: 10/11/18 10:17:21 Pt. Name: SHIVAM BERNARD D.O.B./Sex: 1985 Female Med Rec #: [id number] Physician: JUANY PRICE MD Financial #: [id number] Pt. Type: O Room/Bed: [facility] Admit/Disch: 10/11/18 04:54:00 - Institution: [facility] [place] PreOp Case Times Entry 1 In Preop 10/11/18 05:30:00 Ready for Holding n/a Room Patient Ready for 10/11/18 06:47:00 Surgery Patient Out of Preop 10/11/18 07:35:00 Patient Out of n/a Holding Room Last Modified By: CYNDI LEONARD 10/11/18 10:17:20 SJE PreOp Case Times Audit 10/11/18 10:17:20 Filer Finish: [email or web address] Modifier: [email or web address] <+> 1 Patient Out of Preop 10/11/18 06:47:33 Filer Finish: CRAINMA Modifier: CRAINMA <+> 1 Patient Ready for Surgery Finalized By: CYNDI LEONARD Document Signatures Signed By: CYNDI LEONARD 10/11/18 10:17 documented in this encounter Plan of Treatment Not on file documented as of this encounter Visit Diagnoses Not on filedocumented in this encounter
--- OUTSIDE RECORDS SUMMARY | 2025-04-01 10:51 | XMS_ITS | Encounter Summary ---
Author Organization [employer] ([place], [place], [place], [place]) Address [address] [place] [address] Care Team Providers Care Product/Industry Consultant Name Role Phone Unavailable Primary Care Provider Unavailabl e Encounter Details Date Type Department Care Team (Late st Contact Info) Description 10/11/2018 Transcribed Document [facility] [place] [facility] [place] [address] ProviderChula MD [address] [place] [address] Social History Tobacco Use [...] - Chula ProviderMD - 10/11/2018 9:28 AM ZONING TECHNICIAN DATE OF PROCEDURE: 10/11/2018 ORTHOPEDIC OPERATIVE NOTE PREOPERATIVE DIAGNOSIS(ES): Right L5-S1 herniated nucleus pulposus. POSTOPERATIVE DIAGNOSIS(ES): Right L5-S1 herniated nucleus pulposus. PROCEDURE: Right L5-S1 microdiscectomy, CPT code-65660. SURGEON: Chase Recinos MD SAMPLE WEAVER: Benjy. COMPLICATIONS: None. SPECIMENS: None. IMPLANTS: None. ESTIMATED BLOOD LOSS: 25 mL. DESCRIPTION OF PROCEDURE: Patient was identified in the holding area at [facility], transferred to the operative room under [...]
--- OUTSIDE RECORDS SUMMARY | 2025-04-01 10:51 | XMS_ITS | Encounter Summary ---
Author Organization [employer] ([place], [place], [place], [place]) Address [address] [place] [address] Care Team Providers Care Care Management Associate Name Role Phone Unavailable Primary Care Provider Unavailabl e Encounter Details Date Type Department Care Team (Late st Contact Info) Description 10/11/2018 Transcribed Document [facility] [place] [facility] [place] [address] ProviderChula MD [address] [place] [address] Social History Tobacco Use Types [...] - Historical ProviderMD - 10/11/2018 8:12 AM COIL BUILDER Peripheral Nerve Block Entered On: 10/11/2018 8:13 [...] - 10/11/2018 8:12 EST Electronically signed by [facility] Conversion Vallez Filter Operator Cerner at 01/06/2023 4:48 PM CDT documented in this encounter Plan of Treatment Not on file documented as of this encounter Visit Diagnoses Not on filedocumented in this encounter
--- OUTSIDE RECORDS SUMMARY | 2025-04-01 10:51 | XMS_ITS | Referral Summary ---
Author Organization [employer] ([place], [place], [place], [place]) Address [address] [place] [address] Care Team Providers Care Utility Service Worker Name Role Phone Unavailable Primary Care [...]
--- OUTSIDE RECORDS SUMMARY | 2025-04-01 10:51 | XMS_ITS | Encounter Summary ---
Author Organization [employer] ([place], [place], [place], [place]) Address [address] [place] [address] Care Team Providers Care Wafer Mounter Name Role Phone Unavailable Primary Care Provider Unavailabl e Encounter Details Date Type Department Care Team (Late st Contact Info) Description 10/11/2018 Transcribed Document [facility] [place] [facility] [place] [address] ProviderChula MD [address] [place] [address] Social History Tobacco Use Types [...] - Historical ProviderMD - 10/11/2018 6:33 AM SHOE CASER Pre Procedure Adult Entered On: 10/11/2018 6:47 EST Performed On: 10/11/2018 6:33 EST by Naa Alonso Nurse - denise Height and Weight, Clinical Dosing Height Source : Stated Height Entry Format : [place] Height, Feet : 5 ft(Converted to: 152 cm, 60 Inch) Height, Inches : 4 Inch(Converted to: 0 ft 4 Inch, 10.16 cm) Clinical Height : 162.56 cm Weight Source : Standing scale Weight Entry Format : [place] Clinical Dosing Weight : 87.73 kg Weight, Pounds : 193 lb Body Surface Area (BSA) : 1.93 m2 Body Mass Index : 33.2 kg/m2 (HI) [place] Body Weight : 54 kg Naa Alonso [...] Obtained From : Patient Primary Language : Lao Preferred Communication Mode : Verbal Communication Barrier [...] Scale Risk Level : 0-24 Low Risk [place] Fall Interventions : Adequate lighting, Call device [...]
--- OUTSIDE RECORDS SUMMARY | 2025-04-01 10:51 | XMS_ITS | Encounter Summary ---
Author Organization [employer] ([place], [place], [place], [place]) Address [address] [place] [address] Care Team Providers Care Beauty Specialist Name Role Phone Unavailable Primary Care Provider Unavailabl e Encounter Details Date Type Department Care Team (Late st Contact Info) Description 10/11/2018 Transcribed Document [facility] [place] Medicine [facility] [place] [address] ProviderChula MD [address] [place] [address] Social History Tobacco Use Types [...] Chula ProviderMD - 10/11/2018 8:13 AM MANAGER LANDSCAPE POLINA Main OR PostOp Summary Primary Physician: JUANY PRICE MD Finalized Date/Time: 10/11/18 13:49:18 Pt. Name: SHIVAM BERNARD D.O.B./Sex: 1985 Female Med Rec #: [id number] Physician: JUANY PRICE MD Financial #: [id number] Pt. Type: O Room/Bed: [facility] Admit/Disch: 10/11/18 04:54:00 - [place] [facility] [place] PostOp Case Times Entry 1 In PACU II 10/11/18 11:36:00 Ready for PACU II 10/11/18 13:44:00 Discharge Discharge from PACU 10/11/18 13:44:00 II Last Modified By: Elba Ram Rn 10/11/18 13:49:17 [facility] Main OR PostOp Case Times Audit 10/11/18 13:49:17 Rehab Department Manager: STEPH Modifier: STEPH <+> 1 Ready for PACU II Discharge <+> 1 Discharge from PACU II Finalized By: Elba Ram, Rn Document Signatures Signed By: Elba Ram Rn 10/11/18 13:49 documented in this encounter Plan of Treatment Not on file documented as of this encounter Visit Diagnoses Not on filedocumented in this encounter
--- OUTSIDE RECORDS SUMMARY | 2025-04-01 10:51 | XMS_ITS | Encounter Summary ---
Author Organization [employer] ([place], [place], [place], [place]) Address [address] [place] [address] Care Team Providers Care Information Receptionist Name Role Phone Unavailable Primary Care Provider Unavailabl e Encounter Details Date Type Department Care Team (Late st Contact Info) Description 09/27/2018 Transcribed Document [facility] [place] [facility] [place] [address] ProviderChula MD [address] [place] [address] Social History Tobacco Use Types [...] - Chula ProviderMD - 09/27/2018 10:11 AM GROUND CREWMAN MISSION SUPPORT PAT Adult Entered On: 09/27/2018 10:15 EST [...] % Oxygen Therapy Mode : Room air Vreonica Marin RN - 09/27/2018 10:11 EST Height and Weight, Clinical Dosing Height Source : Stated Height Entry Format : [place] Height, Feet : 5 ft(Converted to: 152 cm, 60 Inch) Height, Inches : 4 Inch(Converted to: 0 ft 4 Inch, 10.16 cm) Clinical Height : 162.56 cm Weight Source : Standing scale Weight Entry Format : [place] Clinical Dosing Weight : 88.18 kg Weight, Pounds : 194 lb Body Surface Area (BSA) : 1.93 m2 Body Mass Index : 33.4 kg/m2 (HI) [place] Body Weight : 54 kg Veronica Marin [...] Obtained From : Patient Primary Language : Pakistani Preferred Communication Mode : Verbal Communication Barrier [...]
--- OUTSIDE RECORDS SUMMARY | 2025-04-01 10:51 | XMS_ITS | Clinical Summary ---
Author Organization [facility] Address [address] [place] [address] Care Team Providers Care As400 Consultant Name Role Phone Rosemary Fuller Primary Care [...] Tdap) 09/12/2023 09/12/2013 Colonoscopy 12/29/2023 12/29/2021, 11/13/2019 VFP-BVILG-85 Vaccine (1 - season) 2024 [facility]-Depression Screening 01/03/2025 01/04/2024 [facility]-Influenza Vaccine (#1) 05/19/202507/20, 07/06/2017, 07/20/2016, Additional history exists [facility]-Zoster Vaccines [...] RN Endo Nurse Roberto Carlos Davis CRNA [employer], No role selected Kell Carrera RN Endo Nurse Mady Alvarez Endo Nurse James Morales MD Anesthesiologist MD Daniel Dinero MD Proceduralist Ophthalmic Tech Unknown Endo Nurse 1 Endo Nurse Preprocedure [...] of bowel preparation was evaluated using the [place] Bowel Preparation Scale with scores of: right [...] were documented in this log. Findings Healthy bqjc-ii-eunt ileocolonic anastomosis with no bleeding The rectum [...] <6.0% Children and Adolescents <7.5% . Source: [place] Diabetes Association. Standards of medical care in diabetes, 2017. Diabetes Care.2017:40 (suppl 1):S1-S135. . HbA1c assay performed by an ion-exchange chromatography method that is certified traceable to the DCCT. 01/15/2019 10:5 6 AM EDT 01/15/2019 12:16 PM EDT us Faith Ruth MD LAB BLOOD ORDERABLES Final Resu lt SUNQUEST from Last 3 Months or Most Recently Relevant to Health Maintenance Insurance [facility] MEDICAID Care Teams As400 Consultant Relationship Specialty Start Date End Date Rosemary Fuller PA [address] [place] [address] PCP - General 01/29/21
== END 2025-04-01 23:59 | disposition home or self-care (01) ==
LOC: RAD 10:30
PROVIDERS: PCP Nurse Practitioner; Visit Provider Obstetrics & Gynecology
DX: O36.5930 Maternal care for other known or suspected poor fetal growth, third trimester, not applicable or unspecified (principal); O09.523 Supervision of elderly multigravida, third trimester; O10.913 Unspecified pre-existing hypertension complicating pregnancy, third trimester; O26.23 Pregnancy care for patient with recurrent pregnancy loss, third trimester; Z3A.31 31 weeks gestation of pregnancy
CPT/HCPCS: 76819; 76820

== ENCOUNTER 2025-04-03 09:57 | Outpatient (CLI) | payer OTHER, SELFPAY ==
--- OUTSIDE RECORDS SUMMARY | 2025-04-03 10:01 | XMS_ITS | Encounter Summary ---
Author Organization [employer] ([place], [place], [place], [place]) Address [address] [place] [address] Care Team Providers Care Communication Center Coordinator Name Role Phone Unavailable Primary Care Provider Unavailabl e Encounter Details Date Type Department Care Team (Late st Contact Info) Description 10/11/2018 Transcribed Document [facility] [place] [facility] [place] [address] ProviderCuhla MD [address] [place] [address] Social History Tobacco Use Types [...] - Chula ProviderMD - 10/11/2018 8:13 AM COMPACTING MACHINE OPERATOR/TENDER E Main OR PACU Summary Primary Physician: JUANY PRICE MD Finalized Date/Time: 10/11/18 11:43:57 Pt. Name: SHIVAM BERNARD D.O.B./Sex: 1985 Female Med Rec #: [id number] Physician: JUANY PRICE MD Financial #: [id number] Pt. Type: O Room/Bed: [facility] Admit/Disch: 10/11/18 04:54:00 - Institution: [facility] [place] PACU Case Times Entry 1 [...] RN 10/11/18 11:43 Electronically signed by Hanane [facility] Conversion Dust Collector Ore Crushing Cerner at 01/06/2023 4:48 PM CDT documented in this encounter Plan of Treatment Not on file documented as of this encounter Visit Diagnoses Not on filedocumented in this encounter
--- OUTSIDE RECORDS SUMMARY | 2025-04-03 10:01 | XMS_ITS | Encounter Summary ---
Author Organization [employer] ([place], [place], [place], [place]) Address [address] [place] [address] Care Team Providers Care Applications Processor Name Role Phone Unavailable Primary Care Provider Unavailabl e Encounter Details Date Type Department Care Team (Late st Contact Info) Description 10/11/2018 Transcribed Document [facility] [place] [facility] [address] ProviderChula MD [address] [place] [address] Social History Tobacco Use Types [...] - Historical ProviderMD - 10/11/2018 6:33 AM BLEACHER PULP Pre Procedure Adult Entered On: 10/11/2018 6:47 EST Performed On: 10/11/2018 6:33 EST by Naa Alonso Nurse - denise Height and Weight, Clinical Dosing Height Source : Stated Height Entry Format : [place] Height, Feet : 5 ft(Converted to: 152 cm, 60 Inch) Height, Inches : 4 Inch(Converted to: 0 ft 4 Inch, 10.16 cm) Clinical Height : 162.56 cm Weight Source : Standing scale Weight Entry Format : [place] Clinical Dosing Weight : 87.73 kg Weight, Pounds : 193 lb Body Surface Area (BSA) : 1.93 m2 Body Mass Index : 33.2 kg/m2 (HI) [place] Body Weight : 54 kg Naa Alonso Nurse - ednise - 10/11/2018 6:33 EST Health Histories Smoking [...] Obtained From : Patient Primary Language : Finnish Preferred Communication Mode : Verbal Communication Barrier [...] Scale Risk Level : 0-24 Low Risk [place] Fall Interventions : Adequate lighting, Call device [...] form. Electronically signed by Shanika Koo Conversion Chemical Dependency Professional Cerner at 01/06/2023 4:52 PM CDT documented in this encounter Plan of Treatment Not on file documented as of this encounter Visit Diagnoses Not on filedocumented in this encounter
--- OUTSIDE RECORDS SUMMARY | 2025-04-03 10:01 | XMS_ITS | Encounter Summary ---
Author Organization [employer] ([place], [place], [place], [place]) Address [address] [place] [address] Care Team Providers Care Hybrid Powertrain Development Engineer Name Role Phone Unavailable Primary Care Provider Unavailabl e Encounter Details Date Type Department Care Team (Late st Contact Info) Description 10/11/2018 Transcribed Document [facility] [place] [facility] [place] [address] ProviderChula MD [address] [place] [id number] Social History Tobacco Use Types Packs/Day Years [...] - Historical ProviderMD - 10/11/2018 7:35 AM MONOTYPE OPERATOR Event Note Entered On: 10/11/2018 7:37 EST [...]
--- OUTSIDE RECORDS SUMMARY | 2025-04-03 10:01 | XMS_ITS | Encounter Summary ---
Author Organization [employer] ([place], [place], [place], [place]) Address [address] [place] [address] Care Team Providers Care Landscape Artist Name Role Phone Unavailable Primary Care Provider Unavailabl e Encounter Details Date Type Department Care Team (Late st Contact Info) Description 10/11/2018 Transcribed Document [facility] [place] Family Medicine [facility] [place] [address] ProviderChula MD [address] [place] [address] Social History Tobacco Use Types [...] - Chula ProviderMD - 10/11/2018 8:13 AM DERRICK BOAT RUNNER POLINA Main OR IntraOp Summary Primary Physician: JUANY PRICE MD Finalized Date/Time: 10/11/18 09:39:55 Pt. Name: SUNIL BERNARDLONNIE Acevedo /Sex: 1985 Female Med Rec #: [id number] Physician: JUANY PRICE MD Financial #: [id number] Pt. Type: O Room/Bed: [facility] Admit/Disch: 10/11/18 04:54:00 - Institution: [facility] IntraOp Case Attendance Entry 1 Entry 2 Entry 3 Case Attendee JUANY PRICE MD BRUNNER, RICHARD V, Chelsey Bran Rn-Surgery Role Performed Surgeon/Proceduralist, PROMOTIONS EXECUTIVE/Nurse School Boat Driver Car Wiper, First First Time In 10/11/18 07:39:00 10/11/18 [...] BRUNER, HAVEN Role Performed Scrub, First Physician medical assistant dermatology Senior Specialist Time In 10/11/18 07:39:00 10/11/18 07:39:00 10/11/18 07:39:00 Time Out 10/11/18 09:33:00 10/11/18 09:33:00 10/11/18 09:33:00 Procedure Lumbar Microdiscectomy Lumbar Microdiscectomy Lumbar Microdiscectomy Other Attendee Superficial Wound Closed By: Last Modified By: Chelsey Mae Demike, Cynthia Y, Demike, Cynthia Y, Rn-Surgery 10/11/18 Rn-Surgery 10/11/18 Rn-Surgery 10/11/18 09:33:47 09:33:47 09:33:47 Entry 7 Entry 8 Case Attendee FABIAN CRUZ, RN [place] [address] ST Role Performed Car Wiper, Second Scrub, Second Time In 10/11/18 08:48:00 10/11/18 09:02:00 Time Out 10/11/18 09:02:00 10/11/18 09:33:00 Procedure Lumbar Microdiscectomy Lumbar Microdiscectomy Other Attendee Superficial Wound Closed By: Last Modified By: Chelsey Mae Demike, Cynthia Y, Rn-Surgery 10/11/18 Rn-Surgery 10/11/18 09:33:47 09:33:47 [facility] IntraOp Case Attendance Audit 10/11/18 09:33:47 Rice Drier: [id number] Modifier: [id number] 1 <*> Procedure Lumbar Microdiscectomy 2 <+> [...] 8 <*> Procedure Lumbar Microdiscectomy 10/11/18 09:21:03 Rice Drier: [id number] Modifier: [id number] 1 <+> Time Out 1 <*> Procedure Lumbar Microdiscectomy 10/11/18 09:04:27 Rice Drier: [id number] Modifier: [id number] <+> 1 Procedure 2 <*> Procedure Lumbar Microdiscectomy 3 <*> Procedure Lumbar Microdiscectomy 4 <*> Procedure Lumbar Microdiscectomy 5 <*> Procedure Lumbar Microdiscectomy 6 <*> Procedure Lumbar Microdiscectomy 7 <*> Procedure Lumbar Microdiscectomy 8 <*> Procedure Lumbar Microdiscectomy 10/11/18 09:04:05 Rice Drier: [id number] Modifier: [id number] <+> 7 Case Attendee <+> 7 Role Performed <+> 7 Time In <+> 7 Time Out <+> 7 Procedure <+> 8 Case Attendee <+> 8 Role Performed <+> 8 Time In <+> 8 Procedure 10/11/18 08:29:38 Rice Drier: [id number] Modifier: [id number] 2 <*> Procedure Lumbar Microdiscectomy 3 <*> Procedure Lumbar Microdiscectomy 4 <*> Procedure Lumbar Microdiscectomy 5 <*> Procedure Lumbar Microdiscectomy 6 <+> Time In 6 <*> Procedure Lumbar Microdiscectomy 10/11/18 08:24:25 Rice Drier: [id number] Modifier: [id number] 2 <*> Procedure Lumbar Microdiscectomy 3 <*> Procedure Lumbar Microdiscectomy 4 <*> Procedure Lumbar Microdiscectomy 5 <+> Time In 5 <*> Procedure Lumbar Microdiscectomy <+> 6 Case Attendee <+> 6 Role Performed <+> 6 Procedure 10/11/18 08:13:49 Rice Drier: [id number] Modifier: [id number] <+> 1 Time In 2 <+> Time [...] [facility] IntraOp Case Times Audit 10/11/18 09:33:44 Rice Drier: [id number] Modifier: [id number] <+> 1 Out Room Time <+> 1 Stop Time 10/11/18 09:33:20 Rice Drier: [id number] Modifier: [id number] <+> 1 Stop Time 10/11/18 08:13:56 Rice Drier: [id number] Modifier: [id number] <+> 1 Start Time S[facility] IntraOp Cautery [...] 08:35:57 SJE IntraOp Cautery Audit 10/11/18 08:35:57 Rice Drier: [id number] Modifier: [id number] 1 <*> Grounding Pad Site Right Lower [...] SJE IntraOp Counts Final Audit 10/11/18 09:21:17 Rice Drier: [id number] Modifier: [id number] 1 <*> Procedure Lumbar Microdiscectomy 1 <+> [...] Rn-Surgery 10/11/18 08:26:46 SJE IntraOp General Case Energy Efficiency Finance Manager 1 Case Information OR OR 01 SJE [...] Avitene 1Gm powder - Marcaine 0.25% 30ml [id number] vial - [id number] Combo Med List Time Administered Route of [...] Intra Op Sign Out Audit 10/11/18 09:39:50 Rice Drier: [id number] Modifier: [id number] <+> 1 RN Sign Out Signature Date/Time [...] SJE IntraOp Surgical Procedures Audit 10/11/18 09:33:24 Rice Drier: [id number] Modifier: [id number] 1 <*> Procedure Lumbar Microdiscectomy 1 <+> Stop 10/11/18 09:21:35 Rice Drier: [id number] Modifier: [id number] 1 <*> Procedure Lumbar Microdiscectomy 1 <+> Specialty 10/11/18 09:04:26 Rice Drier: [id number] Modifier: [id number] <+> 1 Primary Procedure <+> 1 Primary Surgeon <+> 1 Start <+> 1 Wound Class <+> 1 Anesthesia Type <+> 1 Additional Procedure Description SJE IntraOp Temp Regulation Devices Entry 1 Temp Regulation Temperature Forced Air Warming Regulation Device device Temperature Upper body Regulation Site Temperature Device 43 Setting Temperature CARLTON HARKINS V PROMOTIONS EXECUTIVE Regulation Device Applied by Last Modified By: [...] SJE IntraOp Time Out Audit 10/11/18 08:33:51 Rice Drier: [id number] Modifier: [id number] 1 <+> Beta Thalia Administered 1 <+> [...] Rn-Surgery 10/11/18 09:39 Electronically signed by Han[facility] Conversion Speedboat Driver Cerner at 01/06/2023 4:42 PM CDT documented in this encounter Plan of Treatment Not on file documented as of this encounter Visit Diagnoses Not on filedocumented in this encounter
--- OUTSIDE RECORDS SUMMARY | 2025-04-03 10:01 | XMS_ITS | Encounter Summary ---
Author Organization [employer] ([place], [place], [place], [place]) Address [address] [place] [address] Care Team Providers Care Freelance Web Designer Name Role Phone Unavailable Primary Care Provider Unavailabl e Encounter Details Date Type Department Care Team (Late st Contact Info) Description 10/11/2018 Transcribed Document [facility] [place] [facility] [place] [address] ProviderChula MD [address] [place] [address] Social History Tobacco Use Types [...] - Historical ProviderMD - 10/11/2018 8:12 AM COTTON GINNER Peripheral Nerve Block Entered On: 10/11/2018 8:13 [...] - 10/11/2018 8:12 EST Electronically signed by [facility] Conversion Timber Estimator Cerner at 01/06/2023 4:48 PM CDT documented in this encounter Plan of Treatment Not on file documented as of this encounter Visit Diagnoses Not on filedocumented in this encounter
--- OUTSIDE RECORDS SUMMARY | 2025-04-03 10:01 | XMS_ITS | Encounter Summary ---
Author Organization [employer] ([place], [place], [place], [place]) Address [address] [place] [address] Care Team Providers Care Remote Computer Terminal Operator Name Role Phone Unavailable Primary Care Provider Unavailabl e Encounter Details Date Type Department Care Team (Late st Contact Info) Description 10/11/2018 Transcribed Document [facility] [place] Family Medicine [facility] [place] [address] ProviderChula MD [address] [place] [address] Social History Tobacco Use Types [...] - Chula ProviderMD - 10/11/2018 8:13 AM STONE UNLOADER POLINA Main OR PostOp Summary Primary Physician: JUANY PRICE MD Finalized Date/Time: 10/11/18 13:49:18 Pt. Name: SHIVAM BERNARD D.O.B./Sex: 1985 Female Med Rec #: [id number] Physician: JUANY PRICE MD Financial #: [id number] Pt. Type: O Room/Bed: [facility] Admit/Disch: 10/11/18 04:54:00 - Institution: [facility] Main OR PostOp Case Times Entry 1 In PACU II 10/11/18 11:36:00 Ready for PACU II 10/11/18 13:44:00 Discharge Discharge from PACU 10/11/18 13:44:00 II Last Modified By: Elba Ram Rn 10/11/18 13:49:17 S[facility]Carole Main OR PostOp Case Times Audit 10/11/18 13:49:17 Bit Welder: STEPH Modifier: [email or web address] <+> 1 Ready for PACU II Discharge <+> 1 Discharge from PACU II Finalized By: Elba Ram, Rn Document Signatures Signed By: Elba Ram Rn 10/11/18 13:49 Electronically signed by Hanane [facility] Conversion Warehouse Supervisor 3Rd Shift Cerner at 01/06/2023 5:02 PM CDT documented in this encounter Plan of Treatment Not on file documented as of this encounter Visit Diagnoses Not on filedocumented in this encounter
--- OUTSIDE RECORDS SUMMARY | 2025-04-03 10:01 | XMS_ITS | Encounter Summary ---
Author Organization [employer] ([place], [place], [place], [place]) Address [address] [place] [address] Care Team Providers Care Circuit Clerk Name Role Phone Unavailable Primary Care Provider Unavailabl e Encounter Details Date Type Department Care Team (Late st Contact Info) Description 09/27/2018 Transcribed Document [facility] [place] [facility] [place] [address] ProviderChula MD [address] [place] [address] Social History Tobacco Use Types [...] - Chula ProviderMD - 09/27/2018 10:11 AM FOOD SPECIALIST PAT Adult Entered On: 09/27/2018 10:15 [...] Source : Stated Height Entry Format : [place] Height, Feet : 5 ft(Converted to: 152 cm, 60 Inch) Height, Inches : 4 Inch(Converted to: 0 ft 4 Inch, 10.16 cm) Clinical Height : 162.56 cm Weight Source : Standing scale Weight Entry Format : [place] Clinical Dosing Weight : 88.18 kg Weight, Pounds : 194 lb Body Surface Area (BSA) : 1.93 m2 Body Mass Index : 33.4 kg/m2 (HI) [place] Body Weight : 54 kg Veronica Marin [...] Obtained From : Patient Primary Language : Cambodian Preferred Communication Mode : Verbal Communication Barrier [...]
--- OUTSIDE RECORDS SUMMARY | 2025-04-03 10:01 | XMS_ITS | Clinical Summary ---
Author Organization [facility] Address [address] [place] [address] Care Team Providers Care Engineering Patternmaker Name Role Phone Rosemary Fuller Primary Care [...] Tdap) 09/12/2023 09/12/2013 Colonoscopy 12/29/2023 12/29/2021, 11/13/2019 [id number] Vaccine (1 - season) 2024 UKY-Depression Screening [...] RN Endo Nurse Roberto Carlos Davis CRNA REPATCHER, No role selected Kell Carrera RN Endo Nurse Mady Alvarez Endo Nurse James Morales MD Anesthesiologist MD Daniel Dinero MD Proceduralist Bucket Hooker Unknown Endo Nurse 1 Endo Nurse Preprocedure [...] of bowel preparation was evaluated using the [place] Bowel Preparation Scale with scores of: right [...] were documented in this log. Findings Healthy intu-go-pewq ileocolonic anastomosis with no bleeding The rectum [...] <6.0% Children and Adolescents <7.5% . Source: [place] [employer]. Standards of medical care in diabetes, 2017. Diabetes Care.2017:40 (suppl 1):S1-S135. . HbA1c assay performed by an ion-exchange chromatography method that is certified traceable to the DCCT. 01/15/2019 10:5 6 AM EDT 01/15/2019 12:16 PM EDT us Faith Ruth MD LAB BLOOD ORDERABLES Final Resu lt SUNQUEST from Last 3 Months or Most Recently Relevant to Health Maintenance Insurance [facility] MEDICAID Care Teams Engineering Patternmaker Relationship Specialty Start Date End Date Rosemary Fuller PA [address] [place] [address] [place] [address] PCP - General 01/29/21
--- OUTSIDE RECORDS SUMMARY | 2025-04-03 10:01 | XMS_ITS | Encounter Summary ---
Author Organization [employer] ([place], [place], [place]) Address [address] [place] [address] Care Team Providers Care Fire Manager Name Role Phone Unavailable Primary Care Provider Unavailabl e Encounter Details Date Type Department Care Team (Late st Contact Info) Description 10/11/2018 Transcribed Document [facility] [place] Family Medicine On license of [facility] [place] [address] ProviderChula MD [address] [place] [address] Social History Tobacco Use Types [...] - Chula ProviderMD - 10/11/2018 8:13 AM DRAPERY CUTTER MACHINE [place] Main OR PreOp Summary Primary Physician: JUANY PRICE MD Finalized Date/Time: 10/11/18 10:17:21 Pt. Name: SHIVAM BERNARDO.B./Sex: 1985 Female Med Rec #: [id number] Physician: JUANY PRICE MD Financial #: [id number] Pt. Type: O Room/Bed: [facility] Admit/Disch: 10/11/18 04:54:00 - Institution: [facility] [place] PreOp Case Times Entry 1 In Preop 10/11/18 05:30:00 Ready for Holding n/a Room Patient Ready for 10/11/18 06:47:00 Surgery Patient Out of Preop 10/11/18 07:35:00 Patient Out of n/a Holding Room Last Modified By: CYNDI LEONARD 10/11/18 10:17:20 [facility] PreOp Case Times Audit 10/11/18 10:17:20 Frit Mixer: [email or web address] Modifier: [id number] <+> 1 Patient Out of Preop 10/11/18 06:47:33 Frit Mixer: [id number] Modifier: [email or web address] <+> 1 Patient Ready for Surgery Finalized By: CYNDI LEONARD Document Signatures Signed By: CYNDI LEONARD 10/11/18 10:17 Electronically signed by Ruddy Koo Conversion Licensing And Registration Director Cerner at 01/06/2023 4:52 PM CDT documented in this encounter Plan of Treatment Not on file documented as of this encounter Visit Diagnoses Not on filedocumented in this encounter
--- OUTSIDE RECORDS SUMMARY | 2025-04-03 10:01 | XMS_ITS | Encounter Summary ---
Author Organization [employer] ([place], [place], [place], [place]) Address [address] [place] [address] Care Team Providers Care Tile Inspector Name Role Phone Unavailable Primary Care Provider Unavailabl e Encounter Details Date Type Department Care Team (Late st Contact Info) Description 10/11/2018 Transcribed Document [facility] [place] Family Medicine [facility] [place] [address] ProviderChula MD [address] [place] [address] Social History Tobacco Use Types [...] - Historical ProviderMD - 10/11/2018 7:31 AM SAND MILLER Event Note Entered On: 10/11/2018 7:33 EST [...] notified and orders received for clindamycin. Dr Loepz notified of status and IV Benadryl orders received for itching. Naa Alonso Nurse - other - 10/11/2018 7:31 EST documented in this encounter Plan of Treatment Not on file documented as of this encounter Visit Diagnoses Not on filedocumented in this encounter
--- OUTSIDE RECORDS SUMMARY | 2025-04-03 10:01 | XMS_ITS | Encounter Summary ---
Author Organization [employer] ([place], [place], [place], [place]) Address [address] [place] [address] Care Team Providers Care Irrigation Equipment Mechanic Name Role Phone Unavailable Primary Care Provider Unavailabl e Encounter Details Date Type Department Care Team (Late st Contact Info) Description 10/11/2018 Transcribed Document [facility] [place] [facility] [place] [address] ProviderChula MD [address] [place] [address] Social History Tobacco Use Types [...] - Chula ProviderMD - 10/11/2018 9:28 AM SOLE CONFORMING MACHINE OPERATOR DATE OF PROCEDURE: 10/11/2018 ORTHOPEDIC OPERATIVE NOTE PREOPERATIVE DIAGNOSIS(ES): Right L5-S1 herniated nucleus pulposus. POSTOPERATIVE DIAGNOSIS(ES): Right L5-S1 herniated nucleus pulposus. PROCEDURE: Right L5-S1 microdiscectomy, CPT code-03377. SURGEON: Chase Recinos MD SALES FLOOR TEAM LEADER: Benjy. COMPLICATIONS: None. SPECIMENS: None. IMPLANTS: None. ESTIMATED BLOOD LOSS: 25 mL. DESCRIPTION OF PROCEDURE: Patient was identified in the holding area at [facility], transferred to the operative room under [...]
--- OUTSIDE RECORDS SUMMARY | 2025-04-03 10:01 | XMS_ITS | Encounter Summary ---
Author Organization [employer] ([place], [place], [place], [place]) Address [address] [place] [address] Care Team Providers Care Lending Consultant Name Role Phone Unavailable Primary Care Provider Unavailabl e Encounter Details Date Type Department Care Team (Late st Contact Info) Description 10/11/2018 Transcribed Document [facility] [place] [facility] [place] [address] ProviderChula MD [address] [place] [address] Social History Tobacco Use Types [...] - Historical ProviderMD - 10/11/2018 6:12 AM SALESPERSON FLOOR COVERINGS Pediatric Growth Entered On: 10/11/2018 6:12 EST Performed On: 10/11/2018 6:12 EST by Michelle Le Patient Fingerprint Clerk Height and Weight, Clinical Dosing Height Source : Stated Height Entry Format : [place] Height, Feet : 5 ft(Converted to: 152 cm, 60 Inch) Height, Inches : 4 Inch(Converted to: 0 ft 4 Inch, 10.16 cm) Clinical Height : 162.56 cm Weight Source : Standing scale Weight Entry Format : [place] Clinical Dosing Weight : 87.73 kg Weight, Pounds : 193 lb Body Surface Area (BSA) : 1.93 m2 Body Mass Index : 33.2 kg/m2 (HI) [place] Body Weight : 54 kg Michelle Le Patient Fingerprint Clerk - 10/11/2018 6:12 EST Electronically signed by Hanane [facility] Conversion Engineering Technician Cerner at 01/06/2023 5:04 PM CDT documented in this encounter Plan of Treatment Not on file documented as of this encounter Visit Diagnoses Not on filedocumented in this encounter
--- OUTSIDE RECORDS SUMMARY | 2025-04-03 10:01 | XMS_ITS | Encounter Summary ---
Author Organization [employer] ([place], [place], [place], [place]) Address [address] [place] [address] Care Team Providers Care Territory Manager General Sales Name Role Phone Unavailable Primary Care Provider Unavailabl e Encounter Details Date Type Department Care Team (Late st Contact Info) Description 09/27/2018 Transcribed Document [facility] [place] [facility] [place] [address] ProviderChula MD [address] [place] [address] Social History Tobacco Use Types [...] - Chula ProviderMD - 09/27/2018 10:30 AM HYDRANT SETTER Patient: SHIVAM BERNARD Age: 33 Years Sex: [...]
--- OUTSIDE RECORDS SUMMARY | 2025-04-03 10:01 | XMS_ITS | Clinical Summary ---
Author Organization [employer] ([place], [place], [place], [place]) Address [address] [place] [address] Care Team Providers Care Veterinary Inspector Name Role Phone Unavailable Primary Care [...]
--- OUTSIDE RECORDS SUMMARY | 2025-04-03 10:02 | XMS_ITS | Referral Summary ---
Author Organization [employer] ([place], [place], [place], [place]) Address [address] [place] [address] Care Team Providers Care Wall Taper Name Role Phone Unavailable Primary Care Provider [...]
[2025-04-03 10:22] VITALS: BP 127/75; PULSE 83; RESP 18; TEMP 36.7; O2SAT 98; BMI 38.6
== END 2025-04-03 10:32 | disposition home or self-care (01) ==
LOC: OBOUT 09:58 → OB 09:59
PROVIDERS: PCP Nurse Practitioner; Visit Provider Obstetrics & Gynecology
DX: Z34.93 Encounter for supervision of normal pregnancy, unspecified, third trimester (principal); Z3A.32 32 weeks gestation of pregnancy
CPT/HCPCS: 59025; 99212; G0463

== ENCOUNTER 2025-04-11 11:30 | Outpatient (CLI) | payer OTHER, SELFPAY ==
--- OUTSIDE RECORDS SUMMARY | 2025-02-25 14:00 | XMS_ITS | Encounter Summary ---
Author Organization [facility] Address [address] [place] [address] Care Team Providers Care Knife Edger Name Role Phone Provider, No Known Primary Care Provider [phone] Reason for Visit * Diagnostic Imaging (Routine) - Closed Specialty Diagnoses / Procedures Referred By Carolyne diaz Referred To Contact Radiology Diagnoses Abnormal genetic test during Chronic hypertension affecting Procedures [facility] Bentley, Dominick Silva MD [address] [place] [address] Phone: tel: fax: Referral ID Status Reason Start Date Expiration Date Visits Re quested Visits Authorized [id number] Closed 12/30/2024 03/31/2026 4 4 Encounter Details Date Type Department Care Team (Latest Contact Info) Description 02/25/2025 2:00 PM EDT - 02/25/2025 11:59 PM EDT Hospital Encounter [facility] [address] [place] [address] Wilber Bender, DO [address] [facility] [address] [id number] Discharge Disposition: Home or Self Care Social [...] Description 04/30/2025 3:30 PM EDT Office Visit [facility] [address] [place] [address] 04/30/2025 3:30 PM EDT Appointment [facility] US PER DIAG CTR [address] [place] [address] documented as of this encounter Procedures Procedure Name Priority Date/Time Associated Diagnosis Comments US [facility] Routine 02/25/2025 2:41 PM EDT Abnormal genetic test during Chronic hypertension affecting documented in this encounter Results * [facility] (02/25/2025 2:41 PM EDT) Anatomical Region Laterality Modality Ultrasound 02/25/2025 2:28 PM EDT Narrative 02/26/2025 10:26 AM EDT PAT NAME: SHIVAM BERNARD [facility] REC#: [id number] DA: [id number] PAT GEND: F PAT TYPE: O EXAM ALIREZA: [id number] REF PHYS WILBER BENDER Comparison Studies The [...] EFW (oz) 14 oz EFW by: Hadlock (QAG-OZ-EZ-FL) Extended Cav. septi pel. tr 3.8 mm Auto Damage Estimator 5.2 mm Head / Face / Neck Cephalic index 0.80 69% Nicolaides Heart / Great Vessels Cardiac axis 56 PA main 4.74 mm Rt PA branch 2.55 mm 19% Vin Lt PA branch 2.73 mm 28% Vin Ao asc 3.96 mm Ao isthmus 3.2 mm <1% Vni Ao desc 3.65 mm McGoon Index mod. [...] IVC: Appears Normal 3-vessel view: Appears normal 9-yhqqzg-kwohizw view: suboptimal Cardiac axis: Normal Stomach: Normal Kidneys: Normal Bladder: Normal Gender: female Wants to know gender: yes Echocardiogram 2D Echo (Qualitatively) 4-chamber view: Appears normal LVOT view: Appears normal RVOT view: Appears normal 3-vessel view: Appears normal 1-nfjkpc-ykygzwz view: suboptimal Aortic arch view: Appears normal [...] Follow up 4 weeks Coding ======= Description: 53738-05 Follow Up Ultrasound Description: 99871-04 Echo 2D, heart - initial Description: 59844-65 Doppler echo color flow Description: 49141-68 Doppler Umbilical Artery Service Sprinkler Helper: Josephine Gonzales RDMS Physician: Jessica Alejandra MD, FACOG Electronically signed by: Jessica Alejandra MD, FACOG at: 10:26 Procedure Note Jessica Alejandra MD - 02/26/2025 PAT NAME: SHIVAM BERNARD MED REC#: [id number] DA: [id number] PAT GEND: F PAT TYPE: O EXAM ALIREZA: [id number] REF PHYS WILBER BENDER Comparison Studies The findings of this study are compared to the prior ultrasound studydated 01/27/25 Patient Status Outpatient Indication ======== Abnormal NIPT (high risk triploidy, T13, T18.) AMA. CHTN. Hx preeclampsia& PTD (32 & 35 wk). Obesity BMI 39. Maternal Assessment Hrnvvk079 cm Height (ft)5 ft Height (in)3 in Tjraqp618 kg Weight (lb)225 lb BMI39.87 kg/m Method ======= Transabdominal ultrasound examination. View: Suboptimal view: limited byfetal position and maternal habitus ========= Black . Number of fetuses: 1 Dating ====== Method of dating:based on stated ARIA GA by prior fdevdytijq58 w + 6 d ARIA by prior assessment:05/28/2025 Ultrasound examination on:02/25/2025 GA by U/S based upon:AC, BPD, Femur, HC GA by U/S26 w + 1 d ARIA by U/S:06/02/2025 Previous dating:based on stated ARIA, selected on 12/30/2024 Agreed ARIA of previous datin05/28/2025 Assigned:based on stated ARIA, selected on 02/25/2025 Assigned GA26 w + 6 d Assigned ARIA:05/28/2025 kxuici499 d Biometry Standard BPD66.5 mm 26w 6d 37% Hadlock OFD82.7 mm 26w 6d 51% Bella HC242.5 mm 26w 2d 11% Hadlock AC213.9 mm 25w 6d 16% Hadlock Femur46.4 mm 25w 3d 6% Hadlock Zmjlhqe24.5 mm 25w 0d 4% Bella HC / AC1.13 LFF034 g 25w 4d 10% Hadlock EFW (lb)1 lb EFW (oz)14 oz EFW by:Hadlock (AZJ-YX-DA-FL) Extended Cav. septi pel. tr3.8 mm Vp5.2 [...] / HC0.19 FL / AC0.22 Other Structures YZQ516 bpm General Evaluation Cardiac activity present. FHR [...] SVC:Appears Normal IVC:Appears Normal 3-vessel view:Appears normal 2-zhkkvd-zpzprgp view:suboptimal Cardiac axis:Normal Stomach:Normal Kidneys:Normal Bladder:Normal Gender:female Wants to know gender:yes Echocardiogram 2D Echo (Qualitatively) 4-chamber view:Appears normal LVOT view:Appears normal RVOT view:Appears normal 3-vessel view:Appears normal 9-vzueum-lorpsft view:suboptimal Aortic arch view:Appears normal Ductal arch [...] Recommendation Follow up 4 weeks Coding ======= Description:25121-81 Follow Up Ultrasound Description:84604-84 Echo 2D, heart - initial Description:60386-49 Doppler echo color flow Description:46424-75 Doppler Umbilical Artery Service Sprinkler Helper: Josephine Gonzales RDMS Physician: Jessica Alejandra MD, FACOG Electronically signed by: Jessica Alejandra MD, FACOG at: 1110:26 us Dominick Bent[place] MD IMG US ORDERABLES Final Result documented in this encounter Visit Diagnoses Not on filedocumented in this encounter Care Teams Knife Edger Relationship Specialty Start Date End Date Provider, [place] [address] PCP - General 01/04/24 documented as of this encounter
--- OUTSIDE RECORDS SUMMARY | 2025-02-25 14:15 | XMS_ITS | Encounter Summary ---
[facility] Organization [facility] Address [address] [place] [address] Care Team Providers Care Metallic Yarn Slitting Machine Operator Name Role Phone Provider, No Known Primary Care Provider [phone] Reason for Visit * Reason Comments AMA; CHTN; hx preeclampsia; hx PTD; abno rmal NIPT Encounter Details Date Type Department Care Team (Late st Contact Info) Description 02/25/2025 2:15 PM EDT Office Visit [facility] [address] [address] Jessica Alejandra MD 1700 [facility] [address] [place] [address] [phone] Antepartum multigravida of advanced maternal age (Primary Dx); Chronic hypertension affecting Social History Tobacco Use Types Packs/Day Years [...] on file documented as of this encounter Last Filed Vital Signs Vital Sign Reading Time Taken Comments Blood Pressure 116/61 02/25/2025 2:15 PM EDT Pulse - - Temperature - - Respiratory Rate - - Oxygen Saturation - - Inhaled Oxygen Concentration - - Weight 102 kg (225 lb 3.2 oz) 02/25/2025 2:15 PM EDT Height - - Body Mass Index 39.89 12/30/2024 2:09 PM EDT documented in this encounter Progress Notes * Lola Morillo RN - 02/25/2025 2:15 PM EDT Patient denies any leaking of fluid, vaginal bleeding, or contractions. NIPT high risk for T13, T18, or triploidy. Patient reports next follow-up appointment with Dr. Bender's office is 03/12. * Jessica Alejandra MD - 02/25/2025 2:15 PM EDT Patient seen in [facility] today for ultrasound. Please see ultrasound report under imaging tab of patient chart in [facility] (Viewpoint report). Jessica Alejandra MD documented in this encounter Plan of Treatment Upcoming Encounters Date Type Department Care Team (Late st Contact Info) Description 04/30/2025 3:30 PM EDT Office Visit [facility] 1700 [facility] [address] [place] [address] 04/30/2025 3:30 PM EDT Appointment [facility] [address] [place] [address] documented as of this encounter Visit Diagnoses Diagnosis Antepartum multigravida of advanced maternal age- Primary Chronic hypertension affecting documented in this encounter Care Teams Metallic Yarn Slitting Machine Operator Relationship Specialty Start Date End Date Provider, [place] [address] PCP - General 01/04/24 documented as of this encounter
--- OUTSIDE RECORDS SUMMARY | 2025-03-25 15:00 | XMS_ITS | Encounter Summary ---
Author Organization [facility] Address [address] [place] [address] Care Team Providers Care Vp Name Role Phone Provider, No Known Primary Care Provider [phone] Reason for Visit * Diagnostic Imaging (Routine) - Closed Specialty Diagnoses / Procedures Referred By Carolyne diaz Referred To Contact Radiology Diagnoses Abnormal genetic test during Chronic hypertension affecting Procedures [facility] Bentley, Dominick Silva MD [address] [place] [address] Phone: tel: fax: Referral ID Status Reason Start Date Expiration Date Visits Re quested Visits Authorized [id number] Closed 12/30/2024 03/31/2026 4 4 Encounter Details Date Type Department Care Team (Latest Contact Info) Description 03/25/2025 3:00 PM EDT - 03/25/2025 11:59 PM EDT Hospital Encounter [facility] DIAG [facility] [address] [place] [address] Wilber Bender, DO [address] [facility] [address] [place] [id number] Discharge Disposition: Home or Self Care Social [...] 04/30/2025 3:30 PM EDT Office Visit [facility] [address] [facility] [address] [place] [address] 04/30/2025 3:30 PM EDT Appointment [facility] US PER DIAG CTR [address] [place] [address] documented as of this encounter Procedures Procedure Name Priority Date/Time Associated Diagnosis Comments [facility] Routine 03/25/2025 3:56 PM EDT Abnormal genetic test during Chronic hypertension affecting documented in this encounter Results * [facility] (03/25/2025 3:56 PM EDT) Anatomical Region Laterality Modality Ultrasound 03/25/2025 3:25 PM EDT Narrative 03/25/2025 4:18 PM EDT PAT NAME: SHIVAM BERNARD MED REC#: [id number] DA: [id number] PAT GEND: F PAT TYPE: O EXAM ALIREZA: [id number] REF PHYS WILBER BENDER Comparison Studies The [...] EFW (oz) 13 oz EFW by: Hadlock (KIN-UQ-IT-FL) Extended Tibia 45.8 mm 27w 6d 2% Bella Fibula 45.4 mm 28w 1d 15% Bella Foot 57.5 mm 9% Chitty Radius 37.7 mm 26w 2d 14% Bella Ulna 41.3 mm 26w 6d <1% Bella Cav. septi pel. tr 5.5 mm Geological Technical Officer 3.8 mm CM 4.7 mm 3% Nicolaides [...] (one being BPP/BHAVYA/UA dopplers). Coding ======= Description: 11325-70 Follow Up Ultrasound Description: 96914-03 BPP without NST Description: 38381-20 Doppler Umbilical Artery Windows Administrator: Yoly Choudhary RDMS Physician: Dominick Bentley MD, FACOG Electronically signed by: Dominick Bentley MD, FACOG at: 16:18 Procedure Note Dominick Bentley MD - 03/25/2025 PAT NAME: SHIVAM BRENARD MED REC#: [id number] DA: [id number] PAT GEND: F PAT TYPE: O EXAM ALIREZA: [id number] REF PHYS WILBER BENDER Comparison Studies The findings of this study are compared to the prior ultrasound studydated 02/25/25. Patient Status Outpatient Indication ======== Abnormal NIPT (high risk triploidy, T13, T18.) AMA. CHTN. Hx preeclampsia& PTD (32 & 35 wk). Obesity BMI 39. Maternal Assessment Fupuzi893 cm Height (ft)5 ft Height (in)3 in Atgpal916 kg Weight (lb)227 lb BMI40.22 kg/m Method ======= Transabdominal ultrasound examination ========= Black . Number of fetuses: 1 Dating ====== GA by prior spaimylkbi68 w + 6 d ARIA by prior [...] GA30 w + 6 d Assigned ARIA:05/28/2025 aoahes759 d Biometry Standard BPD74.1 mm 29w 5d 11% Hadlock OFD93.7 mm 30w 2d 33% Bella HC267.1 mm 29w 1d <1% Hadlock Cerebellum tr38.6 mm 31w 3d 48% Hill AC252.3 mm 29w 3d 11% Hadlock Femur51.2 mm 27w 3d <1% Hadlock Kncruas89.3 mm 26w 2d <1% Bella HC / AC1.06 EFW1,278 g 28w 3d 3% Hadlock EFW (lb)2 lb EFW (oz)13 oz EFW by:Hadlock (VGL-RY-IY-FL) Extended Tibia45.8 mm 27w 6d 2% Bella Xekvot56.4 mm 28w 1d 15% Bella Foot57.5 mm 9% Chitty Viisqf42.7 mm 26w 2d 14% Bella Ulna41.3 mm 26w 6d <1% Bella Cav. septi pel. tr5.5 mm Vp3.8 mm CM4.7 mm 3% Nicolaides Head / Face / Neck Cephalic index0.79 46% Nicolaides Extremities / Bony Struc FL / BPD0.69 FL / HC0.19 FL / AC0.20 Other Structures USZ326 bpm General Evaluation Cardiac activity present. FHR [...] office (one being BPP/BHAVYA/UA dopplers). Coding ======= Description:38001-49 Follow Up Ultrasound Description:38778-36 BPP without NST Description:88431-79 Doppler Umbilical Artery Windows Administrator: Yoly Choudhary RDMS Physician: Dominick Bentley MD, FACOG Electronically signed by: Dominick Bentley MD, FACOG at: 16:18 us Dominick Bentley MD IMG US ORDERABLES Final Result documented in this encounter Visit Diagnoses Not on filedocumented in this encounter Care Teams Vp Relationship Specialty Start Date End Date Provider, [place] [address] PCP - General 01/04/24 documented as of this encounter
--- OUTSIDE RECORDS SUMMARY | 2025-03-25 15:00 | XMS_ITS | Encounter Summary ---
[facility] Address [address] [place] [address] Care Team Providers Care Rn Outpatient Surgery Name Role Phone Provider, No Known Primary Care Provider [phone] Reason for Referral * Diagnostic Imaging (Routine) - Authorized Specialty Diagnoses / Procedures Referred By Contac t Referred To Contact Radiology Diagnoses Chronic hypertension affecting Antepartum multigravida of advanced maternal age Poor growth affecting management of mother in third trimester, single or unspecified fetus Procedures [facility] Dominick Bentley MD [address] [place] [address] Phone: tel: fax: [facility] US PER DIAG CTR [address] [place] [address] Phone: tel: Referral ID Status Reason Start Date Expiration Date V isits Requested Visits Authorized [id number] Authorized 03/25/2025 06/24/2026 3 3 Reason for Visit * Reason Comments ama, CHTN, ABN NIPT Encounter Details Date Type Department Care Team (Late st Contact Info) Description 03/25/2025 3:00 PM EDT Office Visit [facility] MATERNAL MEDICINE [address] [place] [address] Dominick Bentley MD [address] [facility] [address] [place] [address] Poor growth affecting management of mother in [...] given her abnormal NIPT this could be customer counter representative of that testing. As of note [...] that CMV testing was performed with primary MUSIC PUBLICIST and she said that the IgM was positive and that the antibody was high though we do not have records of this. This could be indicative of IgM with high avidity which could be customer counter representative of new infection though patient states [...] given her abnormal NIPT this could be customer counter representative of that testing. As of note [...] that CMV testing was performed with primary MUSIC PUBLICIST and she said that the IgM was positive and that the antibody was high though we do not have records of this. This could be indicative of IgM with high avidity which could be customer counter representative of new infection though patient states [...] or sooner if clinically indicated. Orders: - [facility]; Standing 2. Chronic hypertension affecting Assessment & Plan: Patient presents for follow-up growth ultrasound secondary to AMA, chronic hypertension, abnormal NIPT. Blood sugar today 127/80. Orders: - [facility]; Standing 3. Antepartum multigravida of advanced maternal age - [facility]; Standing 4. Abnormal genetic test [...] [facility]. Dominick Bentley MD, FACOG Maternal Medicine, [facility] documented in this encounter Plan of Treatment Upcoming Encounters Date Type Department Care Team (Late st Contact Info) Description 04/30/2025 3:30 PM EDT Office Visit [facility] MATERNAL MEDICINE [address] [facility] [address] [place] [address] 04/30/2025 3:30 PM EDT Appointment [facility] US PER DIAG CTR [address] [place] [address] Scheduled Orders Name Type Priority Associated Diagnoses Orde r Schedule [facility] Imaging Routine Chronic [...] during documented in this encounter Care Teams Rn Outpatient Surgery Relationship Specialty Start Date End Date Provider, [place] [address] PCP - General 01/04/24 documented as of this encounter
--- OUTSIDE RECORDS SUMMARY | 2025-04-08 14:33 | XMS_ITS | Encounter Summary ---
Author Organization [facility] Address [address] [place] [address] Care Team Providers Care Pantograph Transferrer Name Role Phone Provider, No Known Primary Care Provider [phone] Reason for Referral * Diagnostic Imaging (Routine) - Closed Specialty Diagnoses / Procedures Referred By Carolyne diaz Referred To Contact Radiology Diagnoses Abnormal genetic test during Chronic hypertension affecting Procedures [facility] Dominick Bentley MD [address] [place] [address] Phone: tel: fax: Referral ID Status Reason Start Date Expiration Date Visits Re quested Visits Authorized [id number] Closed 12/30/2024 03/31/2026 4 4 Reason for Visit * Diagnostic Imaging (Routine) - Closed Specialty Diagnoses / Procedures Referred By Carolyen diaz Referred To Contact Radiology Diagnoses Abnormal genetic test during Chronic hypertension affecting Procedures [facility] Diagnostic [place] Dominick Bentley MD [address] [facility] [address] [place] [address] Phone: tel: fax: Referral ID Status Reason Start Date Expiration Date Visits Re quested Visits Authorized [id number] Closed 12/30/2024 03/31/2026 4 4 Encounter Details Date Type Department Care Team (Latest Contact Info) Description 04/08/2025 2:33 PM EDT - 04/08/2025 11:59 PM EDT Hospital Encounter [facility] [address] [place] [address] Abnormal genetic test during ; Chronic hypertension [...] MATERNAL MEDICINE [address] [place] [address] 04/30/2025 3:30 PM EDT Appointment [facility] [address] [place] [id number] documented as of this encounter Procedures Procedure Name Priority Date/Time Associated Diagnosis Comments [facility] Routine 04/08/2025 3:27 PM EDT Abnormal genetic test during Chronic hypertension affecting documented in this encounter Results * [facility] (04/08/2025 3:27 PM EDT) Anatomical Region Laterality Modality Ultrasound 04/08/2025 3:10 PM EDT Narrative 04/09/2025 12:30 PM EDT PAT NAME: SHIVAM BERNARD MED REC#: [id number] DA: [id number] PAT GEND: F PAT TYPE: O EXAM ALIREZA: [id number] REF PHYS WILBER BHAKTA Comparison Studies The [...] EFW (oz) 14 oz EFW by: Hadlock (BOC-HQ-SZ-FL) Extended Cav. septi pel. tr 4.9 mm Watch Dial Maker 5.2 mm CM 8.0 mm 70% Nicolaides [...] S<D - mild IUGR Normal fluid BPP 8/ UA doppler normal Recommendation Twice weekly testing in your office recommended Follow up growth in 3 weeks scheduled Coding ======= Description: 58354-94 Follow Up Ultrasound Description: 08746-73 BPP without NST Description: 31049-10 Doppler Umbilical Artery Bean Sorter: Josephine Gonzales RDMS Physician: Jessica Alejandra MD, FACOG Electronically signed by: Jessica Alejandra MD, FACOG at: 12:30 Procedure Note Jessica Alejandra MD - 04/09/2025 PAT NAME: SHIVAM BERNARD MED REC#: [id number] DA: [id number] PAT GEND: F PAT TYPE: O EXAM ALIREZA: [id number] REF PHYS ALICIA BHAKTALEY Comparison Studies The findings of this study are compared to the prior ultrasound studydated 03/25/25 Patient Status Outpatient Indication ======== AMA. CHTN. Follow up IUGR. Abnormal NIPT (high risk triploidy, T13, T18.)Hx preeclampsia & PTD (32 & 35 wk). Morbid obesity BMI 40. Maternal Assessment Ukwdty870 cm Height (ft)5 ft Height (in)3 in Ykhphw730 kg Weight (lb)227 lb BMI40.22 kg/m Method ======= Transabdominal ultrasound examination. View: Adequate view ========= Black . Number of fetuses: 1 Dating ====== Method of dating:based on stated ARIA GA by prior [id number] w + 6 d ARIA by prior [...] Hadlock Femur59.6 mm 31w 0d 5% Hadlock Vvxumsi25.1 mm 30w 6d 13% Bella HC / AC1.05 EFW1,758 g 31w 0d 9% Hadlock EFW (lb)3 lb EFW (oz)14 oz EFW by:Hadlock (BOH-HC-IH-FL) Extended Cav. septi pel. tr4.9 mm Vp5.2 mm CM8.0 mm 70% Nicolaides Head / Face / Neck Cephalic index0.82 66% Nicolaides Extremities / Bony Struc FL / BPD0.74 FL / HC0.21 FL / AC0.22 Other Structures NQR357 bpm General Evaluation Cardiac activity present. FHR [...] growth in 3 weeks scheduled Coding ======= Description:46659-31 Follow Up Ultrasound Description:01332-85 BPP without NST Description:65373-21 Doppler Umbilical Artery Bean Sorter: Josephine Gonzales RDMS Physician: Jessica Alejandra MD, FACOG Electronically signed by: Jessica Alejandra MD, FACOG at: 2312:30 us Dominick Bentley MD Jyoti ORDERABLES Final Result documented in this encounter Visit Diagnoses Diagnosis Abnormal genetic test during Chronic hypertension affecting documented in this encounter Care Teams Pantograph Transferrer Relationship Specialty Start Date End Date Provider, No Known [place] [id number] PCP - General 01/04/24 documented as of this encounter
--- OUTSIDE RECORDS SUMMARY | 2025-04-08 14:45 | XMS_ITS | Encounter Summary ---
[facility] Address [address] [place] [address] Care Team Providers Care Cardiovascular Sonographer Name Role Phone Provider, No Known Primary Care Provider [phone] Reason for Visit * Reason Comments CHTN, AMA, abn NIPT, MO, hx PreE, IUGR Encounter Details Date Type Department Care Team (Late st Contact Info) Description 04/08/2025 2:45 PM EDT Office Visit [facility] MATERNAL MEDICINE [address] [address] Jessica Alejandra MD [address] [phone] Chronic hypertension affecting (Primary Dx); Antepartum multigravida [...] CVS. Jessica Alejandra MD FACOG Maternal Medicine, [facility] 04/08/2025 documented in this encounter Plan of Treatment Upcoming Encounters Date Type Department Care Team (Late st Contact Info) Description 04/30/2025 3:30 PM EDT Office Visit [facility] [address] [facility] [address] [place] [address] 04/30/2025 3:30 PM EDT Appointment [facility] PER DIAG [facility] [address] [place] [address] documented as of this encounter Visit Diagnoses Diagnosis Chronic hypertension affecting - Primary Antepartum multigravida of advanced maternal age Abnormal genetic test during Poor growth affecting management of mother in third trimester, single or unspecified fetus documented in this encounter Care Teams Cardiovascular Sonographer Relationship Specialty Start Date End Date Provider, [place] [address] PCP - General 01/04/24 documented as of this encounter
--- OUTSIDE RECORDS SUMMARY | 2025-04-11 11:34 | XMS_ITS | Encounter Summary ---
Author Organization [employer] ([place], [place], [place], [place]) Address [address] [place] [address] Care Team Providers Care Cardiac Cath Lab Manager Name Role Phone Unavailable Primary Care Provider Unavailabl e Encounter Details Date Type Department Care Team (Late st Contact Info) Description 10/11/2018 Transcribed Document [facility] [place] [facility] [place] [address] ProviderChula MD [address] [place] [address] Social History Tobacco Use Types [...] - Historical ProviderMD - 10/11/2018 8:12 AM CLIENT SERVER DEVELOPER Peripheral Nerve Block Entered On: 10/11/2018 8:13 [...] 8:12 EST Electronically signed by [facility] Conversion Apple Sorter Cerner at 01/06/2023 4:48 PM CDT documented in this encounter Plan of Treatment Not on file documented as of this encounter Visit Diagnoses Not on filedocumented in this encounter
--- OUTSIDE RECORDS SUMMARY | 2025-04-11 11:34 | XMS_ITS | Encounter Summary ---
Author Organization [employer] ([place], [place], [place], [place]) Address [address] [place] [address] Care Team Providers Care Secretary To The Vice President Name Role Phone Unavailable Primary Care Provider Unavailabl e Encounter Details Date Type Department Care Team (Late st Contact Info) Description 10/11/2018 Transcribed Document [facility] Family [facility] [place] [address] ProviderChula MD [address] [place] [address] Social History Tobacco Use Types [...] - Historical ProviderMD - 10/11/2018 6:12 AM CRIMINAL INVESTIGATIVE AGENT Pediatric Growth Entered On: 10/11/2018 6:12 EST Performed On: 10/11/2018 6:12 EST by Michelle Le Patient Materials Supervisor Height and Weight, Clinical Dosing Height Source : Stated Height Entry Format : [place] Height, Feet : 5 ft(Converted to: 152 cm, 60 Inch) Height, Inches : 4 Inch(Converted to: 0 ft 4 Inch, 10.16 cm) Clinical Height : 162.56 cm Weight Source : Standing scale Weight Entry Format : [place] Clinical Dosing Weight : 87.73 kg Weight, Pounds : 193 lb Body Surface Area (BSA) : 1.93 m2 Body Mass Index : 33.2 kg/m2 (HI) [place] Body Weight : 54 kg Michelle Le Patient Materials Supervisor - 10/11/2018 6:12 EST Electronically signed by [facility] Conversion Family Medicine Physician Assistant Cerner at 01/06/2023 5:04 PM CDT documented in this encounter Plan of Treatment Not on file documented as of this encounter Visit Diagnoses Not on filedocumented in this encounter
--- OUTSIDE RECORDS SUMMARY | 2025-04-11 11:34 | XMS_ITS | Encounter Summary ---
Author Organization [employer] ([place], [place], [place], [place]) Address [address] [place] [address] Care Team Providers Care Salt Manager Name Role Phone Unavailable Primary Care Provider Unavailabl e Encounter Details Date Type Department Care Team (Late st Contact Info) Description 10/11/2018 Transcribed Document [facility] Family Medicine Replaced by [facility] [place] [address] ProviderChlua MD [address] [place] [address] Social History Tobacco Use Types [...] - Chula ProviderMD - 10/11/2018 8:13 AM SKELP PROCESSOR E Main OR PACU Summary Primary Physician: JUANY PRICE MD Finalized Date/Time: 10/11/18 11:43:57 Pt. Name: SHIVAM BERNARD D.O.B./Sex: 1985 Female Med Rec #: [id number] Physician: JUANY PRICE MD Financial #: [id number] Pt. Type: O Room/Bed: [facility] Admit/Disch: 10/11/18 04:54:00 - Institution: [facility] Main OR PACU Case Times Entry 1 [...] RN 10/11/18 11:43 Electronically signed by [facility] Conversion Field Account Director Cerner at 01/06/2023 4:48 PM CDT documented in this encounter Plan of Treatment Not on file documented as of this encounter Visit Diagnoses Not on filedocumented in this encounter
--- OUTSIDE RECORDS SUMMARY | 2025-04-11 11:34 | XMS_ITS | Encounter Summary ---
Author Organization [employer] ([place], [place], [place], [place]) Address [address] [place] [address] Care Team Providers Care Pondman Name Role Phone Unavailable Primary Care Provider Unavailabl e Encounter Details Date Type Department Care Team (Late st Contact Info) Description 10/11/2018 Transcribed Document [facility] Family Medicine [facility] [place] [address] ProviderChula MD [address] [place] [address] Social History Tobacco Use Types [...] - Historical ProviderMD - 10/11/2018 6:33 AM ASSISTANT MAINTENANCE MANAGER Pre Procedure Adult Entered On: 10/11/2018 6:47 EST Performed On: 10/11/2018 6:33 EST by Naa Alonso Nurse - denise Height and Weight, Clinical Dosing Height Source : Stated Height Entry Format : [place] Height, Feet : 5 ft(Converted to: 152 cm, 60 Inch) Height, Inches : 4 Inch(Converted to: 0 ft 4 Inch, 10.16 cm) Clinical Height : 162.56 cm Weight Source : Standing scale Weight Entry Format : [place] Clinical Dosing Weight : 87.73 kg Weight, Pounds : 193 lb Body Surface Area (BSA) : 1.93 m2 Body Mass Index : 33.2 kg/m2 (HI) [place] Body Weight : 54 kg Naa Alonso [...] Obtained From : Patient Primary Language : Chadian Preferred Communication Mode : Verbal Communication Barrier [...] Scale Risk Level : 0-24 Low Risk [place] Fall Interventions : Adequate lighting, Call device [...]
--- OUTSIDE RECORDS SUMMARY | 2025-04-11 11:34 | XMS_ITS | Encounter Summary ---
Author Organization [facility] ([place], [place], [place], [place]) Address [address] [place] [address] Care Team Providers Care Pathology Specialist Name Role Phone Unavailable Primary Care Provider Unavailabl e Encounter Details Date Type Department Care Team (Late st Contact Info) Description 10/11/2018 Transcribed Document [facility] Family Medicine [facility] [place] [address] ProviderChula MD [address] [place] [address] Social History Tobacco Use Types [...] - Chula ProviderMD - 10/11/2018 8:13 AM BINGO CHECKER POLINA Main OR PreOp Summary Primary Physician: JUANY PRICE MD Finalized Date/Time: 10/11/18 10:17:21 Pt. Name: SHIVAM BERNARD D.O.B./Sex: 1985 Female Med Rec #: [id number] Physician: JUANY PRICE MD Financial #: [id number] Pt. Type: O Room/Bed: [facility] Admit/Disch: 10/11/18 04:54:00 - Institution: [facility] PreOp Case Times Entry 1 In Preop 10/11/18 05:30:00 Ready for Holding n/a Room Patient Ready for 10/11/18 06:47:00 Surgery Patient Out of Preop 10/11/18 07:35:00 Patient Out of n/a Holding Room Last Modified By: CYNDI LEONARD 10/11/18 10:17:20 SJE PreOp Case Times Audit 10/11/18 10:17:20 Solder Sprayer: [email or web address] Modifier: [email or web address] <+> 1 Patient Out of Preop 10/11/18 06:47:33 Solder Sprayer: [email or web address] Modifier: [email or web address] <+> 1 Patient Ready for Surgery Finalized By: CYNDI LEONARD Document Signatures Signed By: CYNDI LEONARD 10/11/18 10:17 documented in this encounter Plan of Treatment Not on file documented as of this encounter Visit Diagnoses Not on filedocumented in this encounter
--- OUTSIDE RECORDS SUMMARY | 2025-04-11 11:34 | XMS_ITS | Encounter Summary ---
Author Organization [employer] ([place], [place], [place], [place]) Address [address] [place] [address] Care Team Providers Care Wreath And Garland Maker Hand Name Role Phone Unavailable Primary Care Provider Unavailabl e Encounter Details Date Type Department Care Team (Late st Contact Info) Description 10/11/2018 Transcribed Document [facility] Family Medicine [facility] [place] [address] ProviderChula MD [address] [place], [place] [id number] Social History Tobacco Use Types Packs/Day Years [...] - Historical ProviderMD - 10/11/2018 7:35 AM CLINICAL OFFICE TECHNICIAN Event Note Entered On: 10/11/2018 7:37 EST [...]
--- OUTSIDE RECORDS SUMMARY | 2025-04-11 11:34 | XMS_ITS | Encounter Summary ---
Author Organization [employer] ([place], [place], [place], [place]) Address [address] [place] [address] Care Team Providers Care Unloader Name Role Phone Unavailable Primary Care Provider Unavailabl e Encounter Details Date Type Department Care Team (Late st Contact Info) Description 10/11/2018 Transcribed Document [facility] Family Medicine [facility] [place] [address] ProviderChula MD [address] [place] [address] Social History Tobacco Use Types [...] - Chula ProviderMD - 10/11/2018 9:28 AM BUTTONER DATE OF PROCEDURE: 10/11/2018 ORTHOPEDIC OPERATIVE NOTE PREOPERATIVE DIAGNOSIS(ES): Right L5-S1 herniated nucleus pulposus. POSTOPERATIVE DIAGNOSIS(ES): Right L5-S1 herniated nucleus pulposus. PROCEDURE: Right L5-S1 microdiscectomy, CPT code-54294. SURGEON: Chase Recinos MD BEAUTY SHOP MANAGER: Benjy. COMPLICATIONS: None. SPECIMENS: None. IMPLANTS: None. ESTIMATED BLOOD LOSS: 25 mL. DESCRIPTION OF PROCEDURE: Patient was identified in the holding area at [facility], transferred to the operative room under [...]
--- OUTSIDE RECORDS SUMMARY | 2025-04-11 11:34 | XMS_ITS | Encounter Summary ---
Author Organization [employer] ([place], [place], [place], [place]) Address [address] [place] [address] Care Team Providers Care Men'S Designer Name Role Phone Unavailable Primary Care Provider Unavailabl e Encounter Details Date Type Department Care Team (Late st Contact Info) Description 10/11/2018 Transcribed Document [facility] [place] [facility] [place] [address] ProviderChula MD [address] [place] [address] Social History Tobacco Use Types [...] - Chula ProviderMD - 10/11/2018 8:13 AM FOUR CORNER FORMER MACHINE OPERATOR POLINA Main OR IntraOp Summary Primary Physician: JUANY PRICE MD Finalized Date/Time: 10/11/18 09:39:55 Pt. Name: SUNIL BERNARDLONNIE Acevedo /Sex: 1985 Female Med Rec #: [id number] Physician: JUANY PRICE MD Financial #: [id number] Pt. Type: O Room/Bed: [facility] Admit/Disch: 10/11/18 04:54:00 - [place] [facility] [place] Case Attendance Entry 1 Entry 2 Entry 3 Case Attendee JUANY PRICE MD BRUNNER, RICHARD V, Chelsey Bran Rn-Surgery Role Performed Surgeon/Proceduralist, LIBERAL ARTS AND HUMANITIES CHAIR/Nurse Hand Glass Cutter Court Collections Officer, First First Time In 10/11/18 07:39:00 10/11/18 [...] BRUNER, HAVEN Role Performed Scrub, First Physician printer's assistant Biofuels Technology Manager Time In 10/11/18 07:39:00 10/11/18 07:39:00 10/11/18 07:39:00 Time Out 10/11/18 09:33:00 10/11/18 09:33:00 10/11/18 09:33:00 Procedure Lumbar Microdiscectomy Lumbar Microdiscectomy Lumbar Microdiscectomy Other Attendee Superficial Wound Closed By: Last Modified By: Chelsey Mae Demike, Cynthia Y, Demike, Cynthia Y, Rn-Surgery 10/11/18 Rn-Surgery 10/11/18 Rn-Surgery 10/11/18 09:33:47 09:33:47 09:33:47 Entry 7 Entry 8 Case Attendee FABIAN CRUZ, RN [place] [address] ST Role Performed Court Collections Officer, Second Scrub, Second Time In 10/11/18 08:48:00 10/11/18 09:02:00 Time Out 10/11/18 09:02:00 10/11/18 09:33:00 Procedure Lumbar Microdiscectomy Lumbar Microdiscectomy Other Attendee Superficial Wound Closed By: Last Modified By: Chelsey Mae Demike, Cynthia Y, Rn-Surgery 10/11/18 Rn-Surgery 10/11/18 09:33:47 09:33:47 SJE IntraOp Case Attendance Audit 10/11/18 09:33:47 Rhinologist: [id number] Modifier: [id number] 1 <*> Procedure Lumbar Microdiscectomy 2 <+> [...] 8 <*> Procedure Lumbar Microdiscectomy 10/11/18 09:21:03 Rhinologist: [id number] Modifier: [id number] 1 <+> Time Out 1 <*> Procedure Lumbar Microdiscectomy 10/11/18 09:04:27 Rhinologist: [id number] Modifier: [id number] <+> 1 Procedure 2 <*> Procedure Lumbar Microdiscectomy 3 <*> Procedure Lumbar Microdiscectomy 4 <*> Procedure Lumbar Microdiscectomy 5 <*> Procedure Lumbar Microdiscectomy 6 <*> Procedure Lumbar Microdiscectomy 7 <*> Procedure Lumbar Microdiscectomy 8 <*> Procedure Lumbar Microdiscectomy 10/11/18 09:04:05 Rhinologist: [id number] Modifier: [id number] <+> 7 Case Attendee <+> 7 Role Performed <+> 7 Time In <+> 7 Time Out <+> 7 Procedure <+> 8 Case Attendee <+> 8 Role Performed <+> 8 Time In <+> 8 Procedure 10/11/18 08:29:38 Rhinologist: [id number] Modifier: [id number] 2 <*> Procedure Lumbar Microdiscectomy 3 <*> Procedure Lumbar Microdiscectomy 4 <*> Procedure Lumbar Microdiscectomy 5 <*> Procedure Lumbar Microdiscectomy 6 <+> Time In 6 <*> Procedure Lumbar Microdiscectomy 10/11/18 08:24:25 Rhinologist: [id number] Modifier: [id number] 2 <*> Procedure Lumbar Microdiscectomy 3 <*> Procedure Lumbar Microdiscectomy 4 <*> Procedure Lumbar Microdiscectomy 5 <+> Time In 5 <*> Procedure Lumbar Microdiscectomy <+> 6 Case Attendee <+> 6 Role Performed <+> 6 Procedure 10/11/18 08:13:49 Rhinologist: [id number] Modifier: [id number] <+> 1 Time In 2 <+> Time [...] SJE IntraOp Case Times Audit 10/11/18 09:33:44 Rhinologist: [id number] Modifier: [id number] <+> 1 Out Room Time <+> 1 Stop Time 10/11/18 09:33:20 Rhinologist: [id number] Modifier: [id number] <+> 1 Stop Time 10/11/18 08:13:56 Rhinologist: [id number] Modifier: [id number] <+> 1 Start Time SJE IntraOp Cautery [...] 08:35:57 SJE IntraOp Cautery Audit 10/11/18 08:35:57 Rhinologist: [id number] Modifier: [id number] 1 <*> Grounding Pad Site Right Lower [...] SJE IntraOp Counts Final Audit 10/11/18 09:21:17 Rhinologist: [id number] Modifier: [id number] 1 <*> Procedure Lumbar Microdiscectomy 1 <+> [...] Rn-Surgery 10/11/18 08:26:46 SJE IntraOp General Case Law Firm Receptionist 1 Case Information OR OR 01 SJE Case Level 1 Room Verified Yes Wound Class I - Clean Specialty SN Neurosurgery Anesthesia Type General ASA Class 2 Diagnosis Preop Diagnosis LOW BACK PAIN Postop Same As Preop Yes Postop Diagnosis LOW BACK PAIN Last Modified By: Chelsey Mea, Rn-Surgery 10/11/18 08:28:51 SJE IntraOp Intraoperative Assessment [...] Avitene 1Gm powder - Marcaine 0.25% 30ml [id number] vial - [id number] Combo Med List Time Administered Route of [...] Intra Op Sign Out Audit 10/11/18 09:39:50 Rhinologist: [id number] Modifier: [id number] <+> 1 RN Sign Out Signature Date/Time [...] SJE IntraOp Surgical Procedures Audit 10/11/18 09:33:24 Rhinologist: [id number] Modifier: [id number] 1 <*> Procedure Lumbar Microdiscectomy 1 <+> Stop 10/11/18 09:21:35 Rhinologist: [id number] Modifier: [id number] 1 <*> Procedure Lumbar Microdiscectomy 1 <+> Specialty 10/11/18 09:04:26 Rhinologist: [id number] Modifier: [id number] <+> 1 Primary Procedure <+> 1 Primary Surgeon <+> 1 Start <+> 1 Wound Class <+> 1 Anesthesia Type <+> 1 Additional Procedure Description SJE IntraOp Temp Regulation Devices Entry 1 Temp Regulation Temperature Forced Air Warming Regulation Device device Temperature Upper body Regulation Site Temperature Device 43 Setting Temperature CARLTON HARKINS V LIBERAL ARTS AND HUMANITIES CHAIR Regulation Device Applied by Last Modified By: [...] SJE IntraOp Time Out Audit 10/11/18 08:33:51 Rhinologist: [id number] Modifier: [id number] 1 <+> Beta Thalia Administered 1 <+> [...] Rn-Surgery 10/11/18 09:39 Electronically signed by [facility] Conversion Transitions Manager Rn Cerner at 01/06/2023 4:42 PM CDT documented in this encounter Plan of Treatment Not on file documented as of this encounter Visit Diagnoses Not on filedocumented in this encounter
--- OUTSIDE RECORDS SUMMARY | 2025-04-11 11:34 | XMS_ITS | Encounter Summary ---
Author Organization [employer] ([place], [place], [place], [place]) Address [address] [place] [address] Care Team Providers Care Bilingual Manager Name Role Phone Unavailable Primary Care Provider Unavailabl e Encounter Details Date Type Department Care Team (Late st Contact Info) Description 10/11/2018 Transcribed Document [facility] [place] Family Medicine [facility] [place] [address] ProviderChula MD [address] [place] [address] Social History Tobacco Use Types [...] - Chula ProviderMD - 10/11/2018 8:13 AM TECHNICAL CUSTOMER SUPPORT SPECIALIST POLINA Main OR PostOp Summary Primary Physician: JUANY PRICE MD Finalized Date/Time: 10/11/18 13:49:18 Pt. Name: SHIVAM BERNARD D.O.B./Sex: 1985 Female Med Rec #: [id number] Physician: JUANY PRICE MD Financial #: [id number] Pt. Type: O Room/Bed: [facility] Admit/Disch: 10/11/18 04:54:00 - Institution: [facility] [place] [facility] Main OR PostOp Case Times Entry 1 In PACU II 10/11/18 11:36:00 Ready for PACU II 10/11/18 13:44:00 Discharge Discharge from PACU 10/11/18 13:44:00 II Last Modified By: Elba Ram Rn 10/11/18 13:49:17 SJCarole Main OR PostOp Case Times Audit 10/11/18 13:49:17 Concreter: STEPH Modifier: STEPH <+> 1 Ready for PACU II Discharge <+> 1 Discharge from PACU II Finalized By: Elba Ram, Rn Document Signatures Signed By: Elba Ram Rn 10/11/18 13:49 Electronically signed by [facility] Conversion Rivet Tosser Cerner at 01/06/2023 5:02 PM CDT documented in this encounter Plan of Treatment Not on file documented as of this encounter Visit Diagnoses Not on filedocumented in this encounter
--- OUTSIDE RECORDS SUMMARY | 2025-04-11 11:35 | XMS_ITS | Encounter Summary ---
Author Organization [employer] ([place], [place], [place], [place]) Address [address] [place] [address] Care Team Providers Care Steel Rule Die Maker Apprentice Name Role Phone Unavailable Primary Care Provider Unavailabl e Encounter Details Date Type Department Care Team (Late st Contact Info) Description 09/27/2018 Transcribed Document [facility] [place] Medicine [facility] [place] [address] ProviderChula MD [address] [place] [address] Social History Tobacco Use Types [...] - Chula ProviderMD - 09/27/2018 10:30 AM VETERINARY VIROLOGIST Patient: SHIVAM BERNARD Age: 33 Years Sex: [...]
--- OUTSIDE RECORDS SUMMARY | 2025-04-11 11:35 | XMS_ITS | Clinical Summary ---
Author Organization [facility] Address [address] [place] [address] Care Team Providers Care Sheet Tailer Name Role Phone Rosemary Fuller Primary Care [...] Tdap) 09/12/2023 09/12/2013 Colonoscopy 12/29/2023 12/29/2021, 11/13/2019 [id number] Vaccine (1 - season) 2024 UKY-Depression Screening [...] RN Endo Nurse Roberto Carlos Davis CRNA BULK SEALER, No role selected Kell Carrera RN Endo Nurse Mady Alvarez Endo Nurse James Morales MD Anesthesiologist MD Daniel Dinero MD Proceduralist Recreation Superintendent Unknown Endo Nurse 1 Endo Nurse Preprocedure [...] of bowel preparation was evaluated using the [place] Bowel Preparation Scale with scores of: right [...] were documented in this log. Findings Healthy swyw-on-rket ileocolonic anastomosis with no bleeding The rectum [...] <6.0% Children and Adolescents <7.5% . Source: [place] [employer]. Standards of medical care in diabetes, 2017. Diabetes Care.2017:40 (suppl 1):S1-S135. . HbA1c assay performed by an ion-exchange chromatography method that is certified traceable to the DCCT. 01/15/2019 10:5 6 AM EDT 01/15/2019 12:16 PM EDT us Faith Ruth MD LAB BLOOD ORDERABLES Final Resu lt SUNQUEST from Last 3 Months or Most Recently Relevant to Health Maintenance Insurance [facility] MEDICAID Care Teams Sheet Tailer Relationship Specialty Start Date End Date Rosemary Fuller PA [address] [place] [address] PCP - General 01/29/21
--- OUTSIDE RECORDS SUMMARY | 2025-04-11 11:35 | XMS_ITS | Encounter Summary ---
Author Organization [employer] ([place], [place], [place], [place]) Address [address] [place] [address] Care Team Providers Care Environmental Consultant Name Role Phone Unavailable Primary Care Provider Unavailabl e Encounter Details Date Type Department Care Team (Late st Contact Info) Description 10/11/2018 Transcribed Document [facility] [place] Family Medicine [facility] [place] [address] ProviderChula MD [address] [place] [address] Social History Tobacco Use Types [...] - Historical ProviderMD - 10/11/2018 7:31 AM TRANSPORTATION REFRIGERATION TECHNICIAN Event Note Entered On: 10/11/2018 7:33 EST [...]
--- OUTSIDE RECORDS SUMMARY | 2025-04-11 11:35 | XMS_ITS | Encounter Summary ---
Author Organization [facility] Address [address] [place] [address] Care Team Providers Care Cardiovascular Rn Name Role Phone Provider, No Known Primary Care Provider [phone] Encounter Details Date Type Department Care Team (Latest Contact Info) Description 04/08/2025 Travel Social History Tobacco Use Types Packs/Day Years [...] on file documented as of this encounter Plan of Treatment Upcoming Encounters Date Type Department Care Team (Late st Contact Info) Description 04/30/2025 3:30 PM EDT Office Visit [facility] MATERNAL MEDICINE [address] [place] [address] 04/30/2025 3:30 PM EDT Appointment [facility] PER DIAG CTR [address] [place] [address] documented as of this encounter Visit Diagnoses Not on filedocumented in this encounter Care Teams Cardiovascular Rn Relationship Specialty Start Date End Date Provider, [place] [address] PCP - General 4/18/24 documented as of this encounter
--- OUTSIDE RECORDS SUMMARY | 2025-04-11 11:35 | XMS_ITS | Encounter Summary ---
Author Organization [employer] ([place], [place], [place], [place]) Address [address] [place] [address] Care Team Providers Care Manager Learning Name Role Phone Unavailable Primary Care Provider Unavailabl e Encounter Details Date Type Department Care Team (Late st Contact Info) Description 09/27/2018 Transcribed Document [facility] [place] [facility] [place] [address] ProviderChula MD [address] [place] [address] Social History Tobacco Use Types [...] - Chula ProviderMD - 09/27/2018 10:11 AM STEMHOLE BORER AND TOPPER PAT Adult Entered On: 09/27/2018 10:15 EST Performed On: 09/27/2018 10:11 EST by Veronica Marni RN Vital Measurements Temperature Source : Temporal [...] Source : Stated Height Entry Format : [place] Height, Feet : 5 ft(Converted to: 152 cm, 60 Inch) Height, Inches : 4 Inch(Converted to: 0 ft 4 Inch, 10.16 cm) Clinical Height : 162.56 cm Weight Source : Standing scale Weight Entry Format : [place] Clinical Dosing Weight : 88.18 kg Weight, Pounds : 194 lb Body Surface Area (BSA) : 1.93 m2 Body Mass Index : 33.4 kg/m2 (HI) [place] Body Weight : 54 kg Veronica Marin [...] Obtained From : Patient Primary Language : Montenegrin Preferred Communication Mode : Verbal Communication Barrier [...]
--- OUTSIDE RECORDS SUMMARY | 2025-04-11 11:35 | XMS_ITS | Encounter Summary ---
Author Organization [facility] Address [address] [place] [address] Care Team Providers Care Simulation Software Engineer Name Role Phone Provider, No Known Primary Care Provider [phone] Encounter Details Date Type Department Care Team (Latest Contact Info) Description 02/25/2025 Travel Social History Tobacco Use Types Packs/Day [...] Description 04/30/2025 3:30 PM EDT Office Visit [facility] MEDICINE [address] [place] [address] 04/30/2025 3:30 PM EDT Appointment [facility] [address] [place] [address] documented as of this encounter Visit Diagnoses Not on filedocumented in this encounter Care Teams Simulation Software Engineer Relationship Specialty Start Date End Date Provider, [place] [address] PCP - General 4/18/24 documented as of this encounter
--- OUTSIDE RECORDS SUMMARY | 2025-04-11 11:35 | XMS_ITS | Clinical Summary ---
Author Organization [facility] Address [address] [place] [address] Care Team Providers Care Wool Washing Machine Operator Name Role Phone Provider, No Known Primary Care Provider [phone] Allergies No known active allergies Medications amLODIPine (NORVASC) 5 MG tablet take 1 tablet (5 mg) by oral route once daily 4 Active famotidine (PEPCID) 40 MG tablet Take 1 tablet by mouth Daily. 4 Active omeprazole (priLOSEC) 20 MG capsule Take 1 capsule by mouth Daily. 4 Active labetalol (NORMODYNE) 200 MG tablet Take 1 tablet by mouth 3 times a day. 4 Active hydrOXYzine (ATARAX) 10 MG tablet Take 1 tablet by mouth Every 6 (Six) Hours. 4 Active sertraline (ZOLOFT) 50 MG tablet Take 1 tablet by mouth Daily. 4 Active aspirin 81 MG EC tablet Take 1 tablet by mouth 2 (Two) Times a Day. Active Vit-Fe Fumarate-FA ( vitamin 27-0.8) 27-0.8 MG tablet tablet Take 1 tablet by mouth Daily. Active buPROPion SR (WELLBUTRIN SR) 100 MG 12 hr tablet take 1 tablet (100 mg) by oral route 2 times per day 4 03/25/20 25 Discontinu ed(*Therap y completed) Active Problems Problem Noted Date Diagnosed Date Poor growth affecting management of mother in third trimester 03/25/2025 Assessment & Plan (04/09/2025 12:41 PM EDT): Mild IUGR noted today Otherwise reassuring evaluation Recommend twice weekly testing with follow up growth in 3 weeks with MFM Assessment & Plan (03/25/2025 4:15 PM EDT): Patient's growth ultrasound shows overall weight at the 3rd percentile and abdominal circumference at the 11th percentile. Normal BHAVYA, BPP, umbilical artery Dopplers. We discussed that given the the overall growth at the 3rd percentile this gives a diagnosis of growth restriction. growth lag is primarily driven by shortened long bones particularly of the humerus and the femur, other long bones do not appear as shortened. Patient with multiple risk factors for poor growth including AMA, chronic hypertension, abnormal NIPT. We discussed that given her abnormal NIPT this could be financial foundations representative of that testing. As of note patient herself also only 5 foot 3 inches with a previous child only measuring 2 pounds and 15 ounces at 32 weeks, therefore a component of this may be constitutional in nature. We discussed that given [...] that CMV testing was performed with primary SECTION CHIEF and she said that the IgM was positive and that the antibody was high though we do not have records of this. This could be indicative of IgM with high avidity which could be financial foundations representative of new infection though patient states this was performed at the beginning of . We discussed that regardless of cause we recommend continued close testing and monitoring the fetus. Plan for follow-up here in 2 weeks for repeat growth ultrasound. Recommend twice-weekly testing in your office (1 being BPP, BHAVYA, umbilical artery Dopplers). Would recommend delivery at 37 weeks or sooner if clinically indicated. Antepartum multigravida of advanced maternal age 0502/05/2025 H/O delivery, currently 025 Abnormal genetic test during Assessment & Plan (12/30/2024 2:41 PM EDT): Today's anatomy ultrasound overall appears normal though somewhat limited secondary to early gestation, maternal body habitus, positioning. We discussed that the NIPT abnormality was a result of low fraction and that the laboratory rate is potential increased risk for trisomy 13, trisomy 18 or triploidy. Trisomy 18 syndrome is the second most common multiple malformation syndrome with an incidence of approximately 0.3 per 1000 newborns. There is a 3:1 preponderance of females to males. There are more than 130 different abnormalities reported in the literature for patients with trisomy 18 syndrome. The commonly seen anomalies include limb abnormalities, cleft lip, congenital heart defect, omphalocele, NTDs, choroid plexus cysts, single umbilical artery, enlarged cisterna magna, cystic hygroma, polyhydramnios or IUGR. Of note, 70% of fetuses with trisomy 18 will reveal IUGR by 20 weeks' gestation. Babies with trisomy 18 syndrome are usually feeble and have a limited capacity for survival. Fifty percent within the first week of life and many of the remaining in the next 12 months. The median survival time is 14.5 days. Trisomy 13 syndrome is the third most common multiple malformation syndrome with an incidence of approximately 1 in 5,000 to 1 in 10,000 births. Increased maternal age has been documented in this disorder. Microcephaly, holoprosencephaly, microphthalmia, polydactyly, facial clefts and abnormal helices are found in more than 50% of patients. Eighty percent of patients have congenital heart defects with atrial septal defect (ASDs) and ventricular septal defects (VSDs) being the most common. Many patients, however, have complex congenital heart lesions. Other distinctive abnormalities include polycystic kidneys (30%), omphalocele, intrauterine growth retardation and single umbilical artery. Seventy percent of affected infants are stillborn or by the age of 6 months and 80% in the first year. All survivors with full trisomy 13 syndrome have profound mental retardation. Triploidy is a rare chromosomal abnormality resulting from the presence of an additional set of chromosomes in the cell for a total of 69 chromosomes rather than the normal 46 chromosomes per cell. The triplication of the chromosomes is caused by the fertilization of an egg by two sperms or the fertilization of an egg by a sperm that has an extra set of chromosomes or by the fertilization of an egg that has an extra set of chromosomes by a normal sperm. Infants with triploidy usually are miscarried early in the . Infants affected with complete triploidy suffer from growth restriction and multiple defects including cardiac defects, neural tube defects, cystic kidneys and facial abnormalities including widely spaced eyes and low-set malformed ears. The placenta in triploidy may be immature, large and filled with cysts. If the continues to term, the most often dies within the first days of life. A few affected individuals have been reported to have survived to adulthood, but suffered from developmental delay, learning difficulties, seizures, hearing loss and other abnormalities and probably actually represented mosaic triploidy. Definitive diagnosis should be offered or confirmation with cord blood testing performed. Option of genetic testing in the 2nd trimester including transabdominal amniocentesis for the determination of chromosomal complement as well as amniotic fluid alpha-fetoprotein for the evaluation of a open neural tube defect. A procedure-related loss rate of 1 in 800 would be quoted with midtrimester amniocentesis. The chromosome result is 99.5% accurate and requires approximately 7-10 days to return. Chronic hypertension affecting 025 Assessment & Plan (03/25/2025 4:15 PM EDT): Patient presents for follow-up growth ultrasound secondary to AMA, chronic hypertension, abnormal NIPT. Blood sugar today 127/80. Assessment & Plan (12/30/2024 2:26 PM EDT): Pt has a diagnosis of chronic hypertension. Initial evaluation in these women should include renal function by 24 hr urine for protein and creatinine clearance. HTN is associated with Growth Restriction (FGR) in about 15-25% of cases. HTN progresses to superimposed preeclampsia in about 25-35% of cases, usually recognized by the appearance of proteinuria & worsening hypertension. These interventions do not decrease the risk of superimposed preeclampsia: prophylactic bedrest, work & activity restrictions, dietary changes, nutrient supplements, or prophylactic antihypertensive therapy. The only proven prevention strategy for preeclampsia is low dose aspirin during . In fact, the USPTF recommends low dose aspirin initiation after 12 wks gestation for preeclampsia prevention in these women. We have instructed patient to check a blood pressure log and to report BPs 160/110s. With recent publishing of the CHAP trial, the goal for mild chronic hypertension is blood pressures <140/80. This trial showed decreased maternal morbidity with no change in morbidity. 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 MATERNAL MEDICINE [address] [phone] Jessica Alejandra MD Chronic hypertension affecting (Primary Dx); Antepartum multigravida of advanced maternal age; Abnormal genetic test during ; Poor growth affecting management of mother in third trimester, single or unspecified fetus 04/08/2025 2:33 PM EDT - 04/08/2025 11:59 PM EDT Hospital Encounter [facility] PER DIAG [facility] [address] [place] [phone] Abnormal genetic test during ; Chronic hypertension affecting Discharge Disposition: Home or Self Care 04/08/2025 Travel 03/25/2025 3:00 PM EDT Office Visit [facility] MAT[facility]NAL MEDICINE [address] [phone] Dominick Bentley MD Poor growth affecting management of mother in third trimester, single or unspecified fetus (Primary Dx); Chronic hypertension affecting ; Antepartum multigravida of advanced maternal age; Abnormal genetic test during 03/25/2025 3:00 PM EDT - 03/25/2025 11:59 PM EDT Hospital Encounter [facility] PER DIAG [facility] [address] [place] [phone] Wilber Bender DO Discharge Disposition: Home or Self Care 03/25/2025 Travel 02/25/2025 2:15 PM EDT Office Visit [facility]NAL MEDICINE [address] [phone] Jessica Alejandra MD Antepartum multigravida of advanced maternal age (Primary Dx); Chronic hypertension affecting 02/25/2025 2:00 PM EDT - 02/25/2025 11:59 PM EDT Hospital Encounter [facility] PER DIAG [facility] [address] [place] [phone] Wilber Bender, Discharge Disposition: Home or Self Care 02/25/2025 Travel 01/27/2025 3:00 PM EDT Office Visit [facility]NAL MEDICINE [address] [phone] Lois Agarwal MD Abnormal genetic test during (Primary Dx); Chronic hypertension affecting ; History of recurrent miscarriages; H/O delivery, currently ; Antepartum multigravida of advanced maternal age; 22 weeks gestation of 01/27/2025 2:29 PM EDT - 01/27/2025 11:59 PM EDT Hospital Encounter [facility] DI[facility] [address] [place] [address] Wilber Bender, Discharge Disposition: Home or Self Care 01/27/2025 Travel from Last 3 Months Family History Medical History Relation Name Comments Diabetes Paternal Grandmother Yaritza Alvarez Relation Name Status Comments Paternal Grandmother Yaritza Alvarez Social History Tobacco Use Types Packs/Day Years Used Date Smoking Tobacco: Never Smokeless Tobacco: Never Tobacco Cessation:Counseling Given: Not Answered Alcohol Use Standard Drinks/Week Comments Never 0 [...] 6.4 oz) 04/08/2025 2:57 PM EDT Height 160 cm (5' 3 ) 12/30/2024 2:09 PM EDT Body Mass Index 40.28 12/30/2024 2:09 PM EDT Plan of Treatment Upcoming Encounters Date Type Department Care Team (Late st Contact Info) Description 04/30/2025 3:30 PM EDT Office Visit [facility] [address] [facility] [address] [place] [address] 04/30/2025 3:30 PM EDT Appointment [facility] [address] [place] [address] Health Maintenance Due Date Last Done Comments Annual Gynecologic Pelvic an d Breast Exam 1985 DIABETIC EYE EXAM 1995 DIABETIC FOOT EXAM 1995 URINE MICROALBUMIN-CREATININ E RATIO (uACR) 1995 Hepatitis B (1 of 3 - 19+ 3- dose series) 2004 Pneumococcal Vaccine 0-49 (1 of 2 - PCV) 2004 PAP SMEAR 2006 ANNUAL PHYSICAL 01/04/2024 HEPATITIS C SCREENING 01/04/2024 COVID-19 Vaccine (1 - 2023-2 5 season) 2024 HEMOGLOBIN A1C 07/09/2024 01/08/2024, 01/15/2019 INFLUENZA VACCINE 06/18/2025 07/20/2018, , 07/20/2016, Additional history exists TDAP/TD VACCINES (3 - Td or Tdap) 01/10/2035 025, 09/12/2013 RSV Vaccine - Adults (No Dos es Required) Completed Procedures Procedure Name Priority Date/Time Associated Diagnosis Comments [facility] Routine 04/08/2025 3:27 PM EDT Abnormal genetic test during Chronic hypertension affecting [facility] Routine 03/25/2025 3:56 PM EDT Abnormal genetic test during Chronic hypertension affecting [facility] Routine 02/25/2025 2:41 PM EDT Abnormal genetic test during Chronic hypertension affecting [facility] Routine 01/27/2025 3:12 PM EDT Abnormal genetic test during Chronic hypertension affecting HEMOGLOBIN A1C Routine 01/08/2024 8:54 AM EDT Blighted ovum from Last 3 Months or Most Recently Relevant to Health Maintenance Results * [facility] (04/08/2025 3:27 PM EDT) Only the most recent of4 resultswithin the time period is included. Anatomical Region Laterality Modality Ultrasound 04/08/2025 3:10 PM EDT Narrative 04/09/2025 12:30 PM EDT PAT NAME: SHIVAM BERNARD MED REC#: [id number] DA: [id number] PAT GEND: F PAT TYPE: O EXAM ALIREZA: [id number] REF PHYS WILBER BENDER Comparison Studies The [...] EFW (oz) 14 oz EFW by: Hadlock ([id number]) Extended Cav. septi pel. tr 4.9 mm Computer Systems Software Engineer 5.2 mm CM 8.0 mm 70% Nicolaides [...] in 3 weeks scheduled Coding ======= Description: 16793-68 Follow Up Ultrasound Description: 05670-75 BPP without NST Description: 85719-12 Doppler Umbilical Artery Pre Sales Technical Engineer: Josephine Gonzales RDMS Physician: Jessica Alejandra MD, FACOG Electronically signed by: Jessica Alejandra MD, FACOG at: 12:30 Procedure Note Jessica Alejandra MD - 04/09/2025 PAT NAME: SHIVAM BERNARD MED REC#: [id number] DA: [id number] PAT GEND: F PAT TYPE: O EXAM ALIREZA: [id number] REF PHYS WILBER BENDER Comparison Studies The findings of this study are compared to the prior ultrasound studydated 03/25/25 Patient Status Outpatient Indication ======== AMA. CHTN. Follow up IUGR. Abnormal NIPT (high risk triploidy, T13, T18.)Hx preeclampsia & PTD (32 & 35 wk). Morbid obesity BMI 40. Maternal Assessment Hhenmc637 cm Height (ft)5 ft Height (in)3 in Ccicrc828 kg Weight (lb)227 lb BMI40.22 kg/m Method ======= Transabdominal ultrasound examination. View: Adequate view ========= Black . Number of fetuses: 1 Dating ====== Method of dating:based on stated ARIA GA by prior [id number] w + 6 d ARIA by prior assessment:05/28/2025 Ultrasound examination on:04/08/2025 GA by U/S based upon:AC, BPD, Femur, HC GA by U/S31 w + 4 d ARIA by U/S:06/06/2025 Previous dating:based on stated ARIA, selected on 02/25/2025 Agreed ARIA of previous datin05/28/2025 Assigned:based on stated ARIA, selected on 04/08/2025 Assigned GA32 w + 6 d Assigned ARIA:05/28/2025 [id number] d Biometry Standard BPD80.2 mm 32w 1d 24% Hadlock OFD98.4 mm 31w 6d 23% Bella HC287.0 mm 31w 4d 2% Hadlock Cerebellum tr41.5 mm 32w 6d 31% Hill AC273.7 mm 31w 3d 14% Hadlock Femur59.6 mm 31w 0d 5% Hadlock Hfabggf92.1 mm 30w 6d 13% Bella HC / AC1.05 EFW1,758 g 31w 0d 9% Hadlock EFW (lb)3 lb EFW (oz)14 oz EFW by:Hadlock (NNY-[id number]-FL) Extended Cav. septi pel. tr4.9 mm Vp5.2 mm CM8.0 mm 70% Nicolaides Head / Face / Neck Cephalic index0.82 66% Nicolaides Extremities / Bony Struc FL / BPD0.74 FL / HC0.21 FL / AC0.22 Other Structures UTF457 bpm General Evaluation Cardiac activity present. FHR [...] growth in 3 weeks scheduled Coding ======= Description:99467-82 Follow Up Ultrasound Description:78056-38 BPP without NST Description:09824-32 Doppler Umbilical Artery Pre Sales Technical Engineer: Josephine Gonzales RDMS Physician: Jessica Alejandra MD, FACOG Electronically signed by: Jessica Alejandra MD, FACOG at: 2:30 Dominick Bentley MD IMG US ORDERABLES Final Result * Hemoglobin A1c (01/08/2024 8:54 AM EDT) Hemoglobin A1C 5.20 4.80 - 5.60 % [facility] Comment: Hemoglobin A1C Ranges: Increased Risk for Diabetes 5.7% to 6.4% Diabetes >= 6.5% Diabetic Goal < 7.0% Blood 01/08/2024 8:54 AM EDT 01/08/2024 Narrative [facility] ([facility]UL[facility]) - 01/09/2024 8:16 AM EDT Performed at: [address] [place] [id number] Business Architect: Kevin Staley MD, Phone: [phone] Patient Fasting: N Caleb Alves MD LAB BLOOD ORDERABLES Fin al Result [facility] ([facility]UL[facility]) [address] [id number], [facility] [address] [place] [address], from Last 3 Months or Most Recently Relevant to Health Maintenance Insurance [facility] Care Teams Wool Washing Machine Operator Relationship Specialty Start Date End Date Provider, [place] [address] PCP - General 01/04/24
--- OUTSIDE RECORDS SUMMARY | 2025-04-11 11:35 | XMS_ITS | Clinical Summary ---
Author Organization [employer] ([place], [place], [place], [place]) Address [address] [place] [address] Care Team Providers Care Machine Rug Cleaner Name Role Phone Unavailable Primary Care Provider [...]
--- OUTSIDE RECORDS SUMMARY | 2025-04-11 11:35 | XMS_ITS | Encounter Summary ---
Author Organization [facility] Address [address] [place] [address] Care Team Providers Care Injection Molding Engineer Name Role Phone Provider, No Known Primary Care Provider [phone] Encounter Details Date Type Department Care Team (Latest Contact Info) Description 03/25/2025 Travel Social History Tobacco Use Types Packs/Day [...] 3:30 PM EDT Office Visit [facility] MEDICINE [address] [place] [address] 04/30/2025 3:30 PM EDT Appointment [facility] [address] [place] [address] documented as of this encounter Visit Diagnoses Not on filedocumented in this encounter Care Teams Injection Molding Engineer Relationship Specialty Start Date End Date Provider, [place] [address] PCP - General 4/18/24 documented as of this encounter
--- OUTSIDE RECORDS SUMMARY | 2025-04-11 11:35 | XMS_ITS | Referral Summary ---
Author Organization [employer] ([place], [place], [place], [place]) Address [address] [place] [address] Care Team Providers Care Medical Assistant Internal Medicine Name Role Phone Unavailable Primary Care Provider [...]
[2025-04-11 11:50] VITALS: BP 126/65; PULSE 80; RESP 16; TEMP 36.7; O2SAT 99; BMI 38.6
[2025-04-11 12:10] VITALS: BP 122/73
[2025-04-11 12:13] VITALS: BMI 38.6
[2025-04-11 12:32] LABS: Hematocrit 32.2 % (37.0-47.0); Hemoglobin 10.1 g/dL (12.2-16.2); Immature Granulocytes % 0.5 %; Mean Corpuscular HGB Conc 31.4 g/dL (31.8-35.4); Mean Corpuscular Hemoglobin 25.6 pg (27.0-31.2); Mean Corpuscular Volume 81.7 fl (81-99); Nucleated Red Blood Cells % 0 %; Platelet Count 349 K/mm3 (142-424); Red Blood Count 3.94 M/mm3 (4.20-5.40); Red Cell Distribution Width-SD 43.0 fL; White Blood Count 13.6 K/mm3 (4.8-10.8)
[2025-04-11 12:37] LABS: Albumin Level 3.2 g/dl (3.5-5.0); Chloride 104 mmol/L (98-107); Potassium 4.1 mmoL/L (3.5-5.1); Sodium 133 mmol/L (136-145)
[2025-04-11 12:40] LABS: Alanine Aminotransferase 20 U/L (12-78); Albumin/Globulin Ratio 0.8 (1.1-1.8); Alkaline Phosphatase 174 U/L (38-126); Aspartate Amino Transferase 32 U/L (14-36); Bilirubin,Total 0.3 mg/dl (0.2-1.3); Blood Urea Nitrogen 6 mg/dl (7-17); Calcium 9.1 mg/dl (8.4-10.2); Creatinine Clearance Estimated 243 mL/min (50-200); Creatinine,Serum 0.50 mg/dl (0.52-1.04); Estimated Glomerular Filt Rate 137 ml/min (>60); GFR (African American) 166 ML/MIN (>60); Globulin 3.9 g/dL (1.3-3.2); Glucose 90 mg/dl (74-100); Total Protein,Serum 7.1 g/dl (6.3-8.2)
[2025-04-11 13:04] LABS: Uric Acid 3.8 mg/dl (2.5-6.2)
[2025-04-11 13:46] LABS: Anion Gap 9.1 mEq/L (5-15); Carbon Dioxide 24 mmol/L (22.0-30.0)
== END 2025-04-11 12:23 | disposition home or self-care (01) ==
LOC: OBOUT 11:33 → OB 11:34
PROVIDERS: PCP Nurse Practitioner; Visit Provider Obstetrics & Gynecology
DX: O28.8 Other abnormal findings on antenatal screening of mother (principal); R03.0 Elevated blood-pressure reading, without diagnosis of hypertension; Z3A.33 33 weeks gestation of pregnancy
CPT/HCPCS: 36415; 59025; 80053; 82570; 84156; 84550; 85025; 99212; G0463

== ENCOUNTER 2025-04-15 14:31 | Outpatient (CLI) | payer OTHER, SELFPAY ==
--- OUTSIDE RECORDS SUMMARY | 2025-02-25 14:00 | XMS_ITS | Encounter Summary ---
Author Organization [facility] Address [address] [place] [address] Care Team Providers Care Livestock Agent Name Role Phone Provider, No Known Primary Care Provider [phone] Reason for Visit * Diagnostic Imaging (Routine) - Closed Specialty Diagnoses / Procedures Referred By Carolyne diaz Referred To Contact Radiology Diagnoses Abnormal genetic test during Chronic hypertension affecting Procedures [facility] Bentley, Dominick Silva MD [address] [place] [address] Phone: tel: fax: Referral ID Status Reason Start Date Expiration Date Visits Re quested Visits Authorized [id number] Closed 12/30/2024 03/31/2026 4 4 Encounter Details Date Type Department Care Team (Latest Contact Info) Description 02/25/2025 2:00 PM EDT - 02/25/2025 11:59 PM EDT Hospital Encounter [facility] PER [facility] [address] [place] [address] Wilber Bender, DO [address] [facility] [address] [id number] Discharge Disposition: Home or Self Care Social [...] Description 04/30/2025 3:30 PM EDT Office Visit [facility] MAT[facility]ICINE [address] [place] [address] 04/30/2025 3:30 PM EDT Appointment [facility] US PER DIAG CTR [address] [place] [address] documented as of this encounter Procedures Procedure Name Priority Date/Time Associated Diagnosis Comments US [facility] Routine 02/25/2025 2:41 PM EDT Abnormal genetic test during Chronic hypertension affecting documented in this encounter Results * [facility] (02/25/2025 2:41 PM EDT) Anatomical Region Laterality Modality Ultrasound 02/25/2025 2:28 PM EDT Narrative 02/26/2025 10:26 AM EDT PAT NAME: SHIVAM BERNARD [facility] REC#: [id number] DA: [id number] PAT GEND: F PAT TYPE: O EXAM ALIREZA: [id number] REF PHYS WILBER BENDER Comparison Studies The [...] GA 26 w + 6 d Assigned ARAI: 05/28/2025 length 280 d Biometry Standard BPD [...] EFW (oz) 14 oz EFW by: Hadlock (KAD-XS-TK-FL) Extended Cav. septi pel. tr 3.8 mm Cottage Cheese Maker 5.2 mm Head / Face / Neck [...] IVC: Appears Normal 3-vessel view: Appears normal 1-yoqqlh-qpvqcjo view: suboptimal Cardiac axis: Normal Stomach: Normal Kidneys: Normal Bladder: Normal Gender: female Wants to know gender: yes Echocardiogram 2D Echo (Qualitatively) 4-chamber view: Appears normal LVOT view: Appears normal RVOT view: Appears normal 3-vessel view: Appears normal 1-pekvmp-xxdzhws view: suboptimal Aortic arch view: Appears normal [...] Follow up 4 weeks Coding ======= Description: 13170-47 Follow Up Ultrasound Description: 68309-50 Echo 2D, heart - initial Description: 36367-32 Doppler echo color flow Description: 93173-62 Doppler Umbilical Artery Flat Lock Machine Operator: Josephine Gonzales RDMS Physician: Jessica Alejandra MD, FACOG Electronically signed by: Jessica Alejandra MD, FACOG at: 10:26 Procedure Note Jessica Alejandra MD - 02/26/2025 PAT NAME: SHIVAM BERNARD MED REC#: [id number] DA: [id number] PAT GEND: F PAT TYPE: O EXAM ALIREZA: [id number] REF PHYS WILBER BENDER Comparison Studies The findings of this study are compared to the prior ultrasound studydated 01/27/25 Patient Status Outpatient Indication ======== Abnormal NIPT (high risk triploidy, T13, T18.) AMA. CHTN. Hx preeclampsia& PTD (32 & 35 wk). Obesity BMI 39. Maternal Assessment Cmlrtq804 cm Height (ft)5 ft Height (in)3 in Naffwp173 kg Weight (lb)225 lb BMI39.87 kg/m Method ======= Transabdominal ultrasound examination. View: Suboptimal view: limited byfetal position and maternal habitus ========= Black . Number of fetuses: 1 Dating ====== Method of dating:based on stated ARIA GA by prior w + 6 d ARIA by prior assessment:05/28/2025 Ultrasound examination on:02/25/2025 GA by U/S based upon:AC, BPD, Femur, HC GA by U/S26 w + 1 d ARIA by U/S:06/02/2025 Previous dating:based on stated ARIA, selected on 12/30/2024 Agreed ARIA of previous datin05/28/2025 Assigned:based on stated ARIA, selected on 02/25/2025 Assigned GA26 w + 6 d Assigned ARIA:05/28/2025 rqdopa851 d Biometry Standard BPD66.5 mm 26w 6d 37% Hadlock OFD82.7 mm 26w 6d 51% Bella HC242.5 mm 26w 2d 11% Hadlock AC213.9 mm 25w 6d 16% Hadlock Femur46.4 mm 25w 3d 6% Hadlock Ryubeht51.5 mm 25w 0d 4% Bella HC / AC1.13 FWV168 g 25w 4d 10% Hadlock EFW (lb)1 lb EFW (oz)14 oz EFW by:Hadlock (BAP-AN-NR-FL) Extended Cav. septi pel. tr3.8 mm Vp5.2 [...] / HC0.19 FL / AC0.22 Other Structures HQT695 bpm General Evaluation Cardiac activity present. FHR [...] SVC:Appears Normal IVC:Appears Normal 3-vessel view:Appears normal 2-smbver-zanoxgc view:suboptimal Cardiac axis:Normal Stomach:Normal Kidneys:Normal Bladder:Normal Gender:female Wants to know gender:yes Echocardiogram 2D Echo (Qualitatively) 4-chamber view:Appears normal LVOT view:Appears normal RVOT view:Appears normal 3-vessel view:Appears normal 2-bdeisl-tbitwwv view:suboptimal Aortic arch view:Appears normal Ductal arch [...] Recommendation Follow up 4 weeks Coding ======= Description:68423-36 Follow Up Ultrasound Description:45185-56 Echo 2D, heart - initial Description:18139-52 Doppler echo color flow Description:61608-62 Doppler Umbilical Artery Flat Lock Machine Operator: Josephine Gonzales RDMS Physician: Jessica Alejandra MD, FACOG Electronically signed by: Jessica Alejandra MD, FACOG at: 1110:26 us Dominick Bent[place] MD IMG US ORDERABLES Final Result documented in this encounter Visit Diagnoses Not on filedocumented in this encounter Care Teams Livestock Agent Relationship Specialty Start Date End Date Provider, [place] [address] PCP - General 01/04/24 documented as of this encounter
--- OUTSIDE RECORDS SUMMARY | 2025-02-25 14:15 | XMS_ITS | Encounter Summary ---
[facility] Address [address] [place] [address] Care Team Providers Care Launch Steward Name Role Phone Provider, No Known Primary Care Provider [phone] Reason for Visit * Reason Comments AMA; CHTN; hx preeclampsia; hx PTD; abno rmal NIPT Encounter Details Date Type Department Care Team (Late st Contact Info) Description 02/25/2025 2:15 PM EDT Office Visit [facility] MAT[facility]NAL MEDICINE [address] [address] Jessica Alejandra MD 1700 [facility] [address] [place] [address] [phone] Antepartum multigravida of advanced maternal age (Primary [...] under imaging tab of patient chart in [facility] (Viewpoint report). Jessica Alejandra MD documented in this encounter Plan of Treatment Upcoming Encounters Date Type Department Care Team (Late st Contact Info) Description 04/30/2025 3:30 PM EDT Office Visit [facility] 1700 [facility] [address] [place] [address] 04/30/2025 3:30 PM EDT Appointment [facility] [address] [place] [address] documented as of this encounter Visit Diagnoses Diagnosis Antepartum multigravida of advanced maternal age- Primary Chronic hypertension affecting documented in this encounter Care Teams Launch Steward Relationship Specialty Start Date End Date Provider, [place] [address] PCP - General 01/04/24 documented as of this encounter
--- OUTSIDE RECORDS SUMMARY | 2025-03-25 15:00 | XMS_ITS | Encounter Summary ---
[facility] Address [address] [place] [address] Care Team Providers Care Spray Gun Operator Name Role Phone Provider, No Known Primary Care Provider [phone] Reason for Referral * Diagnostic Imaging (Routine) - Authorized Specialty Diagnoses / Procedures Referred By Contac t Referred To Contact Radiology Diagnoses Chronic hypertension affecting Antepartum multigravida of advanced maternal age Poor growth affecting management of mother in third trimester, single or unspecified fetus Procedures [facility] Dominick Bentley MD [address] [place] [address] Phone: tel: fax: [facility] [address] [place] [address] Phone: tel: Referral ID Status Reason Start Date Expiration Date V isits Requested Visits Authorized [id number] Authorized 03/25/2025 06/24/2026 3 3 Reason for Visit * Reason Comments ama, CHTN, ABN NIPT Encounter Details Date Type Department Care Team (Late st Contact Info) Description 03/25/2025 3:00 PM EDT Office Visit [facility] MATERNAL MEDICINE [address] [place] [address] Dominick Bentley MD [address] [facility] [address] [place] [address] Poor growth affecting management of mother in [...] given her abnormal NIPT this could be wholesale representative of that testing. As of note [...] that CMV testing was performed with primary INSUL[employer] CUTTER [employer] FORMER and she said that the IgM was positive and that the antibody was high though we do not have records of this. This could be indicative of IgM with high avidity which could be wholesale representative of new infection though patient states [...] given her abnormal NIPT this could be wholesale representative of that testing. As of note [...] that CMV testing was performed with primary [employer] and she said that the IgM was positive and that the antibody was high though we do not have records of this. This could be indicative of IgM with high avidity which could be wholesale representative of new infection though patient states [...] or sooner if clinically indicated. Orders: - [facility]; Standing 2. Chronic hypertension affecting Assessment & Plan: Patient presents for follow-up growth ultrasound secondary to AMA, chronic hypertension, abnormal NIPT. Blood sugar today 127/80. Orders: - [facility]; Standing 3. Antepartum multigravida of advanced maternal age - [facility]; Standing 4. Abnormal genetic test [...] CVS. Dominick Bentley MD, FACOG Maternal Medicine, [facility] documented in this encounter Plan of Treatment Upcoming Encounters Date Type Department Care Team (Late st Contact Info) Description 04/30/2025 3:30 PM EDT Office Visit [facility] MATERNAL MEDICINE [address] [facility] [address] [place] [address] 04/30/2025 3:30 PM EDT Appointment [facility] [address] [place] [address] Scheduled Orders Name Type Priority Associated Diagnoses Orde r Schedule [facility] Imaging Routine Chronic hypertension affecting [...] during documented in this encounter Care Teams Spray Gun Operator Relationship Specialty Start Date End Date Provider, [place] [address] PCP - General 01/04/24 documented as of this encounter
--- OUTSIDE RECORDS SUMMARY | 2025-03-25 15:00 | XMS_ITS | Encounter Summary ---
Author Organization [facility] Address [address] [place] [address] Care Team Providers Care Principal Electrical Engineer Name Role Phone Provider, No Known Primary Care Provider [phone] Reason for Visit * Diagnostic Imaging (Routine) - Closed Specialty Diagnoses / Procedures Referred By Carolyne diaz Referred To Contact Radiology Diagnoses Abnormal genetic test during Chronic hypertension affecting Procedures [facility] Bentley, Dominick Silva MD [address] [place] [address] Phone: tel: fax: Referral ID Status Reason Start Date Expiration Date Visits Re quested Visits Authorized [id number] Closed 12/30/2024 03/31/2026 4 4 Encounter Details Date Type Department Care Team (Latest Contact Info) Description 03/25/2025 3:00 PM EDT - 03/25/2025 11:59 PM EDT Hospital Encounter [facility] [address] [place] [address] Wilber Bender, DO [address] [facility] [address] [id number] Discharge Disposition: Home or Self Care Social [...] Description 04/30/2025 3:30 PM EDT Office Visit [facility] [address] [facility] [address] [place] [address] 04/30/2025 3:30 PM EDT Appointment [facility] US PER DIAG CTR [address] [place] [address] documented as of this encounter Procedures Procedure [...] EDT PAT NAME: SHIVAM BERNARD MED REC#: [id number] DA: [id number] PAT GEND: F PAT TYPE: O EXAM ALIREZA: [id number] REF PHYS WILBER BENDER Comparison Studies The [...] EFW (oz) 13 oz EFW by: Hadlock (KKV-ZA-FH-FL) Extended Tibia 45.8 mm 27w 6d 2% Bella Fibula 45.4 mm 28w 1d 15% Bella Foot 57.5 mm 9% Chitty Radius 37.7 mm 26w 2d 14% Bella Ulna 41.3 mm 26w 6d <1% Bella Cav. septi pel. tr 5.5 mm Transformation Analyst 3.8 mm CM 4.7 mm 3% Nicolaides [...] (one being BPP/BHAVYA/UA dopplers). Coding ======= Description: 57302-53 Follow Up Ultrasound Description: 79689-25 BPP without NST Description: 61071-82 Doppler Umbilical Artery Cell Attendant: Yoly Choudhary RDMS Physician: Dominick Bentley MD, FACOG Electronically signed by: Dominick Bentley MD, FACOG at: 16:18 Procedure Note Dominick Bentley MD - 03/25/2025 PAT NAME: SHIVAM BERNARD MED REC#: [id number] DA: [id number] PAT GEND: F PAT TYPE: O EXAM ALIREZA: [id number] REF PHYS WILBER BENDER Comparison Studies The findings of this study are compared to the prior ultrasound studydated 02/25/25. Patient Status Outpatient Indication ======== Abnormal NIPT (high risk triploidy, T13, T18.) AMA. CHTN. Hx preeclampsia& PTD (32 & 35 wk). Obesity BMI 39. Maternal Assessment Csbvlj803 cm Height (ft)5 ft Height (in)3 in Rbkyyx140 kg Weight (lb)227 lb BMI40.22 kg/m Method ======= Transabdominal ultrasound examination ========= Black . Number of fetuses: 1 Dating ====== GA by prior [id number] w + 6 d ARIA by prior [...] GA30 w + 6 d Assigned ARIA:05/28/2025 [id number] d Biometry Standard BPD74.1 mm 29w 5d 11% Hadlock OFD93.7 mm 30w 2d 33% Bella HC267.1 mm 29w 1d <1% Hadlock Cerebellum tr38.6 mm 31w 3d 48% Hill AC252.3 mm 29w 3d 11% Hadlock Femur51.2 mm 27w 3d <1% Hadlock Dmwaydh10.3 mm 26w 2d <1% Bella HC / AC1.06 EFW1,278 g 28w 3d 3% Hadlock EFW (lb)2 lb EFW (oz)13 oz EFW by:Hadlock (MFS-CD-DL-FL) Extended Tibia45.8 mm 27w 6d 2% Bella Bolthp77.4 mm 28w 1d 15% Bella Foot57.5 mm 9% Chitty Dwgidv62.7 mm 26w 2d 14% Bella Ulna41.3 mm 26w 6d <1% Bella Cav. septi pel. tr5.5 mm Vp3.8 mm CM4.7 mm 3% Nicolaides Head / Face / Neck Cephalic index0.79 46% Nicolaides Extremities / Bony Struc FL / BPD0.69 FL / HC0.19 FL / AC0.20 Other Structures AGX154 bpm General Evaluation Cardiac activity present. FHR [...] office (one being BPP/BHAVYA/UA dopplers). Coding ======= Description:58703-11 Follow Up Ultrasound Description:38236-81 BPP without NST Description:13510-14 Doppler Umbilical Artery Cell Attendant: Yoly Choudhary RDMS Physician: Dominick Bentley MD, FACOG Electronically signed by: Dominick Bentley MD, FACOG at: 16:18 us Dominick Bentley MD IMG US ORDERABLES Final Result documented in this encounter Visit Diagnoses Not on filedocumented in this encounter Care Teams Principal Electrical Engineer Relationship Specialty Start Date End Date Provider, [place] [address] PCP - General 01/04/24 documented as of this encounter
--- OUTSIDE RECORDS SUMMARY | 2025-04-08 14:33 | XMS_ITS | Encounter Summary ---
Author Organization [facility] Address [address] [place] [address] Care Team Providers Care Human Resources Benefits Administrator Name Role Phone Provider, No Known Primary Care Provider [phone] Reason for Referral * Diagnostic Imaging (Routine) - Closed Specialty Diagnoses / Procedures Referred By Carolyne diaz Referred To Contact Radiology Diagnoses Abnormal genetic test during Chronic hypertension affecting Procedures [facility] Dominick Bentley MD [address] [place] [address] Phone: tel: fax: Referral ID Status Reason Start Date Expiration Date Visits Re quested Visits Authorized [id number] Closed 12/30/2024 03/31/2026 4 4 Reason for Visit * Diagnostic Imaging (Routine) - Closed Specialty Diagnoses / Procedures Referred By Carolyne diaz Referred To Contact Radiology Diagnoses Abnormal genetic test during Chronic hypertension affecting Procedures [facility] [place] Dominick Bentley MD [address] [facility] [address] [place] [address] Phone: tel: fax: Referral ID Status Reason Start Date Expiration Date Visits Re quested Visits Authorized [id number] Closed 12/30/2024 03/31/2026 4 4 Encounter Details Date Type Department Care Team (Late st Contact Info) Description 04/08/2025 2:33 PM EDT - 04/08/2025 11:59 PM EDT Hospital Encounter [facility] [address] [place] [address] Dominick Bentley MD [address] [place], [place] [id number] Abnormal genetic test during ; Chronic hypertension [...] Description 04/30/2025 3:30 PM EDT Office Visit [facility] [address] [address] [place] [address] 04/30/2025 3:30 PM EDT Appointment [facility] [address] [place] [address] documented as of this encounter Procedures Procedure Name Priority Date/Time Associated Diagnosis Comments [facility] Routine 04/08/2025 3:27 PM EDT Abnormal genetic test during Chronic hypertension affecting documented in this encounter Results * [facility] (04/08/2025 3:27 PM EDT) Anatomical Region Laterality Modality Ultrasound 04/08/2025 3:10 PM EDT Narrative 04/09/2025 12:30 PM EDT PAT NAME: SHIVAM BERNARD MED REC#: [id number] DA: [id number] PAT GEND: F PAT TYPE: O EXAM ALIREZA: [id number] REF PHYS WILBER BHAKTA Comparison Studies The [...] EFW (oz) 14 oz EFW by: Hadlock (KPZ-LZ-PQ-FL) Extended Cav. septi pel. tr 4.9 mm Professor Of Anthropology 5.2 mm CM 8.0 mm 70% Nicolaides [...] in 3 weeks scheduled Coding ======= Description: 91251-59 Follow Up Ultrasound Description: 35860-55 BPP without NST Description: 23343-20 Doppler Umbilical Artery Asphalt Still Operator: Josephine Gonzales RDMS Physician: Jessica Alejandra MD, FACOG Electronically signed by: Jessica Alejandra MD, FACOG at: 12:30 Procedure Note Jessica Alejandra MD - 04/09/2025 PAT NAME: SHIVAM BERNARD MED REC#: [id number] DA: [id number] PAT GEND: F PAT TYPE: O EXAM ALIREZA: [id number] REF PHYS WILBER BHAKTA Comparison Studies The findings of this study are compared to the prior ultrasound studydated 03/25/25 Patient Status Outpatient Indication ======== AMA. CHTN. Follow up IUGR. Abnormal NIPT (high risk triploidy, T13, T18.)Hx preeclampsia & PTD (32 & 35 wk). Morbid obesity BMI 40. Maternal Assessment Nirneu595 cm Height (ft)5 ft Height (in)3 in Lynslb610 kg Weight (lb)227 lb BMI40.22 kg/m Method ======= Transabdominal ultrasound examination. View: Adequate view ========= Black . Number of fetuses: 1 Dating ====== Method of dating:based on stated ARIA GA by prior sbjeaebuwg54 w + 6 d ARIA by prior assessment:05/28/2025 Ultrasound examination on:04/08/2025 GA by U/S based upon:AC, BPD, Femur, HC GA by U/S31 w + 4 d ARIA by U/S:06/06/2025 Previous dating:based on stated ARIA, selected on 02/25/2025 Agreed ARIA of previous datin05/28/2025 Assigned:based on stated ARIA, selected on 04/08/2025 Assigned GA32 w + 6 d Assigned ARIA:05/28/2025 juuyac239 d Biometry Standard BPD80.2 mm 32w 1d 24% Hadlock OFD98.4 mm 31w 6d 23% Bella HC287.0 mm 31w 4d 2% Hadlock Cerebellum tr41.5 mm 32w 6d 31% Hill AC273.7 mm 31w 3d 14% Hadlock Femur59.6 mm 31w 0d 5% Hadlock Mjymdyq97.1 mm 30w 6d 13% Bella HC / AC1.05 EFW1,758 g 31w 0d 9% Hadlock EFW (lb)3 lb EFW (oz)14 oz EFW by:Hadlock (ZYB-DD-HQ-FL) Extended Cav. septi pel. tr4.9 mm Vp5.2 mm CM8.0 mm 70% Nicolaides Head / Face / Neck Cephalic index0.82 66% Nicolaides Extremities / Bony Struc FL / BPD0.74 FL / HC0.21 FL / AC0.22 Other Structures ZEN302 bpm General Evaluation Cardiac activity present. FHR [...] growth in 3 weeks scheduled Coding ======= Description:75200-64 Follow Up Ultrasound Description:63108-50 BPP without NST Description:38475-37 Doppler Umbilical Artery Asphalt Still Operator: Josephine Gonzales RDMS Physician: Jessica Alejandra MD, FACOG Electronically signed by: Jessica Alejandra MD, FACOG at: 2312:30 us Dominick Bentley MD [facility] ORDERABLES Final Result documented in this encounter Visit Diagnoses Diagnosis Abnormal genetic test during Chronic hypertension affecting documented in this encounter Care Teams Human Resources Benefits Administrator Relationship Specialty Start Date End Date Provider, [place] [address] PCP - General 01/04/24 documented as of this encounter
--- OUTSIDE RECORDS SUMMARY | 2025-04-08 14:45 | XMS_ITS | Encounter Summary ---
Author Organization [facility] Address [address] [place] [address] Care Team Providers Care Pit Steward Name Role Phone Provider, No Known Primary Care Provider [phone] Reason for Visit * Reason Comments CHTN, AMA, abn NIPT, MO, hx PreE, IUGR Encounter Details Date Type Department Care Team (Late st Contact Info) Description 04/08/2025 2:45 PM EDT Office Visit [facility] MATERNAL MEDICINE [address] [address] Jessica Alejandra MD [address] [phone] Chronic hypertension affecting (Primary Dx); Antepartum multigravida [...] CVS. Jessica Alejandra MD FACOG Maternal Medicine, [facility] 04/08/2025 documented in this encounter Plan of Treatment Upcoming Encounters Date Type Department Care Team (Late st Contact Info) Description 04/30/2025 3:30 PM EDT Office Visit [facility] [address] [facility] [address] [place] [address] 04/30/2025 3:30 PM EDT Appointment [facility] PER DIAG [facility] [address] [place] [address] documented as of this encounter Visit Diagnoses Diagnosis Chronic hypertension affecting - Primary Antepartum multigravida of advanced maternal age Abnormal genetic test during Poor growth affecting management of mother in third trimester, single or unspecified fetus documented in this encounter Care Teams Pit Steward Relationship Specialty Start Date End Date Provider, [place] [address] PCP - General 01/04/24 documented as of this encounter
--- OUTSIDE RECORDS SUMMARY | 2025-04-15 14:33 | XMS_ITS | Encounter Summary ---
Author Organization [employer] ([place], [place], [place], [place]) Address [address] [place] [address] Care Team Providers Care Talent Advisor Name Role Phone Unavailable Primary Care Provider Unavailabl e Encounter Details Date Type Department Care Team (Late st Contact Info) Description 10/11/2018 Transcribed Document [facility] [place] [address] ProviderChula MD [address] [place] [address] Social History Tobacco Use Types [...] - Chula ProviderMD - 10/11/2018 9:28 AM DEMOLITION EXPERT DATE OF PROCEDURE: 10/11/2018 ORTHOPEDIC OPERATIVE NOTE PREOPERATIVE DIAGNOSIS(ES): Right L5-S1 herniated nucleus pulposus. POSTOPERATIVE DIAGNOSIS(ES): Right L5-S1 herniated nucleus pulposus. PROCEDURE: Right L5-S1 microdiscectomy, CPT code-79788. SURGEON: Chase Recinos MD SHAKER PLATE OPERATOR: Benjy. COMPLICATIONS: None. SPECIMENS: None. IMPLANTS: None. ESTIMATED BLOOD LOSS: 25 mL. DESCRIPTION OF PROCEDURE: Patient was identified in the holding area at [facility], transferred to the operative room [...]
--- OUTSIDE RECORDS SUMMARY | 2025-04-15 14:33 | XMS_ITS | Encounter Summary ---
Author Organization [employer] ([place], [place], [place], [place]) Address [address] [place] [address] Care Team Providers Care Packaging Machine Supplies Distributor Name Role Phone Unavailable Primary Care Provider Unavailabl e Encounter Details Date Type Department Care Team (Late st Contact Info) Description 10/11/2018 Transcribed Document [facility] [place] [address] ProviderChula MD [address] [place] [address] Social History Tobacco Use Types [...] - Historical ProviderMD - 10/11/2018 8:12 AM REGIONAL WILDLIFE AGENT Peripheral Nerve Block Entered On: 10/11/2018 8:13 [...] - 10/11/2018 8:12 EST Electronically signed by [facility], [facility] Conversion Service Order Dispatcher Cerner at 01/06/2023 4:48 PM CDT documented in this encounter Plan of Treatment Not on file documented as of this encounter Visit Diagnoses Not on filedocumented in this encounter
--- OUTSIDE RECORDS SUMMARY | 2025-04-15 14:33 | XMS_ITS | Encounter Summary ---
Author Organization [employer] ([place], [place], [place], [place]) Address [address] [place] [address] Care Team Providers Care Aeronautics Commission Director Name Role Phone Unavailable Primary Care Provider Unavailabl e Encounter Details Date Type Department Care Team (Late st Contact Info) Description 10/11/2018 Transcribed Document [facility] [place] [facility] [place] [address] ProviderChula MD [address] [place] [address] Social History Tobacco Use Types [...] - Chula ProviderMD - 10/11/2018 8:13 AM COMMERCIAL SHEET METAL FOREMAN POLINA Main OR IntraOp Summary Primary Physician: JUANY PRICE MD Finalized Date/Time: 10/11/18 09:39:55 Pt. Name: SUNIL BRENARDLONNIE Acevedo /Sex: 1985 Female Med Rec #: [id number] Physician: JUANY PRICE MD Financial #: [id number] Pt. Type: O Room/Bed: [facility] Admit/Disch: 10/11/18 04:54:00 - Institution: [facility] IntraOp Case Attendance Entry 1 Entry 2 Entry 3 Case Attendee JUANY PRICE MD BRUNNER, RICHARD V, Chelsey Bran Rn-Surgery Role Performed Surgeon/Proceduralist, DIE GRINDER/Nurse Human Resources Compliance Manager Estate Tax Examiner, First First Time In 10/11/18 07:39:00 10/11/18 [...] BRUNER, HAVEN Role Performed Scrub, First Physician assistant director of residence life Aggregate Conveyor Operator Time In 10/11/18 07:39:00 10/11/18 07:39:00 [...] CRUZ, RN Cruz Huert[address] ST Role Performed Estate Tax Examiner, Second Scrub, Second Time In 10/11/18 08:48:00 10/11/18 09:02:00 Time Out 10/11/18 09:02:00 10/11/18 09:33:00 Procedure Lumbar Microdiscectomy Lumbar Microdiscectomy Other Attendee Superficial Wound Closed By: Last Modified By: Chelsey Mae Demike, Cynthia Y, Rn-Surgery 10/11/18 Rn-Surgery 10/11/18 09:33:47 09:33:47 SJE IntraOp Case Attendance Audit 10/11/18 09:33:47 Estimator Printing: [id number] Modifier: [id number] 1 <*> Procedure Lumbar Microdiscectomy 2 <+> [...] 8 <*> Procedure Lumbar Microdiscectomy 10/11/18 09:21:03 Estimator Printing: [id number] Modifier: [id number] 1 <+> Time Out 1 <*> Procedure Lumbar Microdiscectomy 10/11/18 09:04:27 Estimator Printing: [id number] Modifier: [id number] <+> 1 Procedure 2 <*> Procedure Lumbar Microdiscectomy 3 <*> Procedure Lumbar Microdiscectomy 4 <*> Procedure Lumbar Microdiscectomy 5 <*> Procedure Lumbar Microdiscectomy 6 <*> Procedure Lumbar Microdiscectomy 7 <*> Procedure Lumbar Microdiscectomy 8 <*> Procedure Lumbar Microdiscectomy 10/11/18 09:04:05 Estimator Printing: [id number] Modifier: [id number] <+> 7 Case Attendee <+> 7 Role Performed <+> 7 Time In <+> 7 Time Out <+> 7 Procedure <+> 8 Case Attendee <+> 8 Role Performed <+> 8 Time In <+> 8 Procedure 10/11/18 08:29:38 Estimator Printing: [id number] Modifier: [id number] 2 <*> Procedure Lumbar Microdiscectomy 3 <*> Procedure Lumbar Microdiscectomy 4 <*> Procedure Lumbar Microdiscectomy 5 <*> Procedure Lumbar Microdiscectomy 6 <+> Time In 6 <*> Procedure Lumbar Microdiscectomy 10/11/18 08:24:25 Estimator Printing: [id number] Modifier: [id number] 2 <*> Procedure Lumbar Microdiscectomy 3 <*> Procedure Lumbar Microdiscectomy 4 <*> Procedure Lumbar Microdiscectomy 5 <+> Time In 5 <*> Procedure Lumbar Microdiscectomy <+> 6 Case Attendee <+> 6 Role Performed <+> 6 Procedure 10/11/18 08:13:49 Estimator Printing: [id number] Modifier: [id number] <+> 1 Time In 2 <+> Time [...] SJE IntraOp Case Times Audit 10/11/18 09:33:44 Estimator Printing: [id number] Modifier: [id number] <+> 1 Out Room Time <+> 1 Stop Time 10/11/18 09:33:20 Estimator Printing: [id number] Modifier: [id number] <+> 1 Stop Time 10/11/18 08:13:56 Estimator Printing: [id number] Modifier: [id number] <+> 1 Start Time SJE IntraOp Cautery Entry 1 ESU Identification Cautery Type Monopolar ESU ID Number [id number] ID Type Hospital Number Cautery Settings Cut Setting 35 Coag Setting 35 Bipolar Setting 20 ESU Grounding Pad Ground Pad Type Adult Grounding Pad Site Right thigh Grounding Pad Chelsey aMe, Applied By Rn-Surgery Grounding Pad Site Intact Skin Condition Before Cautery Grounding Pad Site Unchanged Skin Condition After Cautery Last Modified By: Chelsey Mae, Rn-Surgery 10/11/18 08:35:57 SJE IntraOp Cautery Audit 10/11/18 08:35:57 Estimator Printing: [id number] Modifier: [id number] 1 <*> Grounding Pad Site Right Lower [...] SJE IntraOp Counts Final Audit 10/11/18 09:21:17 Estimator Printing: [id number] Modifier: [id number] 1 <*> Procedure Lumbar Microdiscectomy 1 <+> [...] Risk Yes Assessment Complete Fire Risk Chelsey aMe, Assessment Verified Rn-Surgery By Fire Risk 10/11/18 07:15:00 Assessment Verified Date/Time Fire Risk Standard Fire Yes Safety Precautions Followed Last Modified By: Chelsey Mae, Rn-Surgery 10/11/18 08:26:46 SJE IntraOp General Case Certified Ophthalmic Assistant 1 Case Information OR OR 01 SJE [...] Avitene 1Gm powder - Marcaine 0.25% 30ml [id number] vial - [id number] Combo Med List Time Administered Route of [...] Intra Op Sign Out Audit 10/11/18 09:39:50 Estimator Printing: [id number] Modifier: [id number] <+> 1 RN Sign Out Signature Date/Time [...] SJE IntraOp Surgical Procedures Audit 10/11/18 09:33:24 Estimator Printing: [id number] Modifier: [id number] 1 <*> Procedure Lumbar Microdiscectomy 1 <+> Stop 10/11/18 09:21:35 Estimator Printing: [id number] Modifier: [id number] 1 <*> Procedure Lumbar Microdiscectomy 1 <+> Specialty 10/11/18 09:04:26 Estimator Printing: [id number] Modifier: [id number] <+> 1 Primary Procedure <+> 1 Primary Surgeon <+> 1 Start <+> 1 Wound Class <+> 1 Anesthesia Type <+> 1 Additional Procedure Description SJE IntraOp Temp Regulation Devices Entry 1 Temp Regulation Temperature Forced Air Warming Regulation Device device Temperature Upper body Regulation Site Temperature Device 43 Setting Temperature CARLTON HARKINS V DIE GRINDER Regulation Device Applied by Last Modified By: [...] SJE IntraOp Time Out Audit 10/11/18 08:33:51 Estimator Printing: [id number] Modifier: [id number] 1 <+> Beta Thalia Administered 1 <+> [...] Rn-Surgery 10/11/18 09:39 Electronically signed by Hanane [facility] Conversion Reed Or Wind Instrument Repairer Cerner at 01/06/2023 4:42 PM CDT documented in this encounter Plan of Treatment Not on file documented as of this encounter Visit Diagnoses Not on filedocumented in this encounter
--- OUTSIDE RECORDS SUMMARY | 2025-04-15 14:33 | XMS_ITS | Encounter Summary ---
Author Organization [employer] ([place], [place], [place], [place]) Address [address] [place] [address] Care Team Providers Care Manager Water Name Role Phone Unavailable Primary Care Provider Unavailabl e Encounter Details Date Type Department Care Team (Late st Contact Info) Description 10/11/2018 Transcribed Document [facility] [place] [facility] [place] [address] ProviderChula MD [address] [place] [address] Social History Tobacco Use Types [...] - Historical ProviderMD - 10/11/2018 7:31 AM BOX SORTER Event Note Entered On: 10/11/2018 7:33 EST [...]
--- OUTSIDE RECORDS SUMMARY | 2025-04-15 14:33 | XMS_ITS | Clinical Summary ---
Author Organization [facility] Address [address] [place] [address] Care Team Providers Care Buildings And Grounds Director Name Role Phone Provider, No Known Primary Care Provider [phone] Allergies No known active allergies Medications amLODIPine [...] given her abnormal NIPT this could be sales support representative of that testing. As of note [...] that CMV testing was performed with primary IDENTIFICATION TECHNICIAN and she said that the IgM was positive and that the antibody was high though we do not have records of this. This could be indicative of IgM with high avidity which could be sales support representative of new infection though patient states [...] Description 04/08/2025 2:45 PM EDT Office Visit [facility] [address] [phone] Jessica Alejandra MD Chronic hypertension affecting (Primary Dx); Antepartum multigravida of advanced maternal age; Abnormal genetic test during ; Poor growth affecting management of mother in third trimester, single or unspecified fetus 04/08/2025 2:33 PM EDT - 04/08/2025 11:59 PM EDT Hospital Encounter [facility] [address] [place] [phone] Dominick Bentley MD Abnormal genetic test during ; Chronic hypertension affecting Discharge Disposition: Home or Self Care 04/08/2025 Travel 03/25/2025 3:00 PM EDT Office Visit [facility] [address] [phone] Dominick Bentley MD Poor growth affecting management of mother in third trimester, single or unspecified fetus (Primary Dx); Chronic hypertension affecting ; Antepartum multigravida of advanced maternal age; Abnormal genetic test during 03/25/2025 3:00 PM EDT - 03/25/2025 11:59 PM EDT Hospital Encounter [facility] [address] [place] [phone] Wilber Bender, Discharge Disposition: Home or Self Care 03/25/2025 Travel 02/25/2025 2:15 PM EDT Office Visit [facility] [address] [facility] [address] [place] [phone] Jessica Alejandra MD Antepartum multigravida of advanced maternal age (Primary Dx); Chronic hypertension affecting 02/25/2025 2:00 PM EDT - 02/25/2025 11:59 PM EDT Hospital Encounter [facility] [address] [place] [address] Wilber Bender, Discharge Disposition: Home or Self Care 02/25/2025 Travel 01/27/2025 3:00 PM EDT Office Visit [facility] [address] [phone] Lois Agarwal MD Abnormal genetic test during (Primary Dx); Chronic hypertension affecting ; History of recurrent miscarriages; H/O delivery, currently ; Antepartum multigravida of advanced maternal age; 22 weeks gestation of 01/27/2025 2:29 PM EDT - 01/27/2025 11:59 PM EDT Hospital Encounter [facility] [address] [place] [address] Wilber Bender, Discharge Disposition: Home or Self [...] Description 04/30/2025 3:30 PM EDT Office Visit [facility] [address] [place] [address] 04/30/2025 3:30 PM EDT Appointment [facility] [address] [place] [address] Health Maintenance Due Date Last [...] Priority Date/Time Associated Diagnosis Comments [facility] Routine 04/08/2025 3:27 PM EDT Abnormal genetic test during Chronic hypertension affecting [facility] Routine 03/25/2025 3:56 PM EDT Abnormal genetic test during Chronic hypertension affecting [facility] Routine 02/25/2025 2:41 PM EDT Abnormal genetic test during Chronic hypertension affecting [facility] Routine 01/27/2025 3:12 PM EDT Abnormal genetic test during Chronic hypertension affecting HEMOGLOBIN A1C Routine 01/08/2024 8:54 AM EDT Blighted ovum from Last 3 Months or Most Recently Relevant to Health Maintenance Results * [facility] (04/08/2025 3:27 PM EDT) Only the most recent of4 resultswithin the time period is included. Anatomical Region Laterality Modality Ultrasound 04/08/2025 3:10 PM EDT Narrative 04/09/2025 12:30 PM EDT PAT NAME: SHIVAM BERNARD MED REC#: [id number] DA: [id number] PAT GEND: F PAT TYPE: O EXAM ALIREZA: [id number] REF PHYS WILBER BENDER Comparison Studies The [...] EFW (oz) 14 oz EFW by: Hadlock ([id number]-FL) Extended Cav. septi pel. tr 4.9 mm Personal Development Mentor 5.2 mm CM 8.0 mm 70% Nicolaides [...] in 3 weeks scheduled Coding ======= Description: 54234-57 Follow Up Ultrasound Description: 72736-34 BPP without NST Description: 85397-35 Doppler Umbilical Artery Foreign Exchange Dealer: Josephine Gonzales RDMS Physician: Jessica Alejandra MD, FACOG Electronically signed by: Jessica Alejandra MD, FACOG at: 12:30 Procedure Note Jessica Alejandra MD - 04/09/2025 PAT NAME: SHIVAM BERNARD MED REC#: [id number] DA: [id number] PAT GEND: F PAT TYPE: O EXAM ALIREZA: [id number] REF PHYS WILBER BENDER Comparison Studies The findings of this study are compared to the prior ultrasound studydated 03/25/25 Patient Status Outpatient Indication ======== AMA. CHTN. Follow up IUGR. Abnormal NIPT (high risk triploidy, T13, T18.)Hx preeclampsia & PTD (32 & 35 wk). Morbid obesity BMI 40. Maternal Assessment Nfwtsw632 cm Height (ft)5 ft Height (in)3 in Szhpqv782 kg Weight (lb)227 lb BMI40.22 kg/m Method ======= Transabdominal ultrasound examination. View: Adequate view ========= Black . Number of fetuses: 1 Dating ====== Method of dating:based on stated ARIA GA by prior iqdysfzxph28 w + 6 d ARIA by prior assessment:05/28/2025 Ultrasound examination on:04/08/2025 GA by U/S based upon:AC, BPD, Femur, HC GA by U/S31 w + 4 d ARIA by U/S:06/06/2025 Previous dating:based on stated ARIA, selected on 02/25/2025 Agreed ARIA of previous datin05/28/2025 Assigned:based on stated ARIA, selected on 04/08/2025 Assigned GA32 w + 6 d Assigned ARIA:05/28/2025 [id number] d Biometry Standard BPD80.2 mm 32w 1d 24% Hadlock OFD98.4 mm 31w 6d 23% Bella HC287.0 mm 31w 4d 2% Hadlock Cerebellum tr41.5 mm 32w 6d 31% Hill AC273.7 mm 31w 3d 14% Hadlock Femur59.6 mm 31w 0d 5% Hadlock Dzfyamr47.1 mm 30w 6d 13% Bella HC / AC1.05 EFW1,758 g 31w 0d 9% Hadlock EFW (lb)3 lb EFW (oz)14 oz EFW by:Hadlock (ZAL-GV-[id number]-FL) Extended Cav. septi pel. tr4.9 mm Vp5.2 mm CM8.0 mm 70% Nicolaides Head / Face / Neck Cephalic index0.82 66% Nicolaides Extremities / Bony Struc FL / BPD0.74 FL / HC0.21 FL / AC0.22 Other Structures [id number] bpm General Evaluation Cardiac activity present. FHR [...] growth in 3 weeks scheduled Coding ======= Description:79687-17 Follow Up Ultrasound Description:03397-13 BPP without NST Description:00783-75 Doppler Umbilical Artery Foreign Exchange Dealer: Josephine Gonzales RDSC Physician: Jessica Alejandra MD, FACOG Electronically signed by: Jessica Alejandra MD, FACOG at: 2:30 us Dominick Bentley MD IMG US ORDERABLES Final Result * Hemoglobin A1c (01/08/2024 8:54 AM EDT) Hemoglobin A1C 5.20 4.80 - 5.60 % [facility] Comment: Hemoglobin A1C Ranges: Increased Risk for Diabetes 5.7% to 6.4% Diabetes >= 6.5% Diabetic Goal < 7.0% Blood 01/08/2024 8:54 AM EDT 01/08/2024 Narrative [facility] ([facility]) - 01/09/2024 8:16 AM EDT Performed at: [address] [place] [id number] Vice President Client Services: Kevin Staley MD, Phone: [phone] Patient Fasting: N us Caleb Alves MD LAB BLOOD ORDERABLES Fin al Result Performing Organization Address City/State/[facility] Co de Phone Number [facility] (AMBULATORY) [address] [place] [address], [facility] [address] [place] [address], from Last 3 Months or Most Recently Relevant to Health Maintenance [facility] Care Teams Buildings And Grounds Director Relationship Specialty Start Date End Date Provider, No Known [place], [place] [id number] PCP - General 01/04/24
--- OUTSIDE RECORDS SUMMARY | 2025-04-15 14:33 | XMS_ITS | Encounter Summary ---
Author Organization [employer] ([place], [place], [place], [place]) Address [address] [place] [address] Care Team Providers Care Wire Galvanizer Name Role Phone Unavailable Primary Care Provider Unavailabl e Encounter Details Date Type Department Care Team (Late st Contact Info) Description 10/11/2018 Transcribed Document [facility] [place] Medicine [facility] [place] [address] ProviderChula MD [address] [place] [address] Social History Tobacco Use Types [...] - Chula ProviderMD - 10/11/2018 8:13 AM RUBBER TRIMMER POLINA Main OR PreOp Summary Primary Physician: JUANY PRICE MD Finalized Date/Time: 10/11/18 10:17:21 Pt. Name: SHIVAM BERNARD D.O.B./Sex: 1985 Female Med Rec #: [id number] Physician: JUANY PRICE MD Financial #: [id number] Pt. Type: O Room/Bed: [facility] Admit/Disch: 10/11/18 04:54:00 - Institution: [facility] [place] PreOp Case Times Entry 1 In Preop 10/11/18 05:30:00 Ready for Holding n/a Room Patient Ready for 10/11/18 06:47:00 Surgery Patient Out of Preop 10/11/18 07:35:00 Patient Out of n/a Holding Room Last Modified By: CYNDI LEONARD 10/11/18 10:17:20 SJE PreOp Case Times Audit 10/11/18 10:17:20 Eviscerator: MANDOINMARCK Modifier: [email or web address] <+> 1 Patient Out of Preop 10/11/18 06:47:33 Eviscerator: CRAINMA Modifier: CRAINMA <+> 1 Patient Ready for Surgery Finalized By: CYNDI LEONARD Document Signatures Signed By: CYNDI LEONARD 10/11/18 10:17 documented in this encounter Plan of Treatment Not on file documented as of this encounter Visit Diagnoses Not on filedocumented in this encounter
--- OUTSIDE RECORDS SUMMARY | 2025-04-15 14:33 | XMS_ITS | Encounter Summary ---
Author Organization [employer] ([place], [place], [place], [place]) Address [address] [place] [address] Care Team Providers Care Call Center Analyst Name Role Phone Unavailable Primary Care Provider Unavailabl e Encounter Details Date Type Department Care Team (Late st Contact Info) Description 10/11/2018 Transcribed Document [facility] Family Medicine [facility] [place] [address] ProviderChula MD [address] [place], [place] [id number] Social History Tobacco Use Types Packs/Day Years [...] - Historical ProviderMD - 10/11/2018 7:35 AM SPRAY FOAM INSTALLER Event Note Entered On: 10/11/2018 7:37 EST [...]
--- OUTSIDE RECORDS SUMMARY | 2025-04-15 14:33 | XMS_ITS | Encounter Summary ---
Author Organization [employer] ([place], [place], [place], [place]) Address [address] [place] [address] Care Team Providers Care Ed Transporter Name Role Phone Unavailable Primary Care Provider Unavailabl e Encounter Details Date Type Department Care Team (Late st Contact Info) Description 10/11/2018 Transcribed Document [facility] [place] Family Medicine [facility] [place] [address] ProviderChula MD [address] [place] [address] Social History Tobacco Use Types [...] - Historical ProviderMD - 10/11/2018 6:33 AM RELATIONSHIP EXECUTIVE Pre Procedure Adult Entered On: 10/11/2018 6:47 EST Performed On: 10/11/2018 6:33 EST by Naa Alonso Nurse - denise Height and Weight, Clinical Dosing Height Source : Stated Height Entry Format : [place] Height, Feet : 5 ft(Converted to: 152 cm, 60 Inch) Height, Inches : 4 Inch(Converted to: 0 ft 4 Inch, 10.16 cm) Clinical Height : 162.56 cm Weight Source : Standing scale Weight Entry Format : [place] Clinical Dosing Weight : 87.73 kg Weight, Pounds : 193 lb Body Surface Area (BSA) : 1.93 m2 Body Mass Index : 33.2 kg/m2 (HI) [place] Body Weight : 54 kg Naa Alonso [...] Obtained From : Patient Primary Language : Martiniquais Preferred Communication Mode : Verbal Communication Barrier [...] Scale Risk Level : 0-24 Low Risk [place] Fall Interventions : Adequate lighting, Call device [...]
--- OUTSIDE RECORDS SUMMARY | 2025-04-15 14:33 | XMS_ITS | Encounter Summary ---
Author Organization [employer] ([place], [place], [place], [place]) Address [address] [place] [address] Care Team Providers Care Portainer Operator Name Role Phone Unavailable Primary Care Provider Unavailabl e Encounter Details Date Type Department Care Team (Late st Contact Info) Description 10/11/2018 Transcribed Document [facility] [place] [facility] [place] [address] ProviderChula MD [address] [place] [address] Social History Tobacco Use Types [...] - Chula ProviderMD - 10/11/2018 8:13 AM NURSE ASSISTANT E Main OR PACU Summary Primary Physician: JUANY PRICE MD Finalized Date/Time: 10/11/18 11:43:57 Pt. Name: SHIVAM BERNARD D.O.B./Sex: 1985 Female Med Rec #: [id number] Physician: JUANY PRICE MD Financial #: [id number] Pt. Type: O Room/Bed: [facility] Admit/Disch: 10/11/18 04:54:00 - Institution: [facility] [place] PACU Case Times Entry 1 [...] 11:43 Electronically signed by Hanane [facility] Conversion Hog Cooler Cerner at 01/06/2023 4:48 PM CDT documented in this encounter Plan of Treatment Not on file documented as of this encounter Visit Diagnoses Not on filedocumented in this encounter
--- OUTSIDE RECORDS SUMMARY | 2025-04-15 14:33 | XMS_ITS | Encounter Summary ---
Author Organization [employer] ([place], [place], [place], [place]) Address [address] [place] [address] Care Team Providers Care Director Facilities Maintenance Name Role Phone Unavailable Primary Care Provider Unavailabl e Encounter Details Date Type Department Care Team (Late st Contact Info) Description 10/11/2018 Transcribed Document [facility] [place] [facility] [place] [address] ProviderChula MD [address] [place] [address] Social History Tobacco Use Types [...] - Historical ProviderMD - 10/11/2018 6:12 AM PAPER CONE GRADER Pediatric Growth Entered On: 10/11/2018 6:12 EST Performed On: 10/11/2018 6:12 EST by Michelle Le Patient Learning Design Specialist Height and Weight, Clinical Dosing Height Source : Stated Height Entry Format : [place] Height, Feet : 5 ft(Converted to: 152 cm, 60 Inch) Height, Inches : 4 Inch(Converted to: 0 ft 4 Inch, 10.16 cm) Clinical Height : 162.56 cm Weight Source : Standing scale Weight Entry Format : [place] Clinical Dosing Weight : 87.73 kg Weight, Pounds : 193 lb Body Surface Area (BSA) : 1.93 m2 Body Mass Index : 33.2 kg/m2 (HI) [place] Body Weight : 54 kg Michelle Le Patient Learning Design Specialist - 10/11/2018 6:12 EST Electronically signed by Hanane [facility] Conversion Field Applications Specialist Cerner at 01/06/2023 5:04 PM CDT documented in this encounter Plan of Treatment Not on file documented as of this encounter Visit Diagnoses Not on filedocumented in this encounter
--- OUTSIDE RECORDS SUMMARY | 2025-04-15 14:33 | XMS_ITS | Encounter Summary ---
Author Organization [employer] ([place], [place], [place], [place]) Address [address] [place] [address] Care Team Providers Care Director Of Marketing Google Performance Ads Name Role Phone Unavailable Primary Care Provider Unavailabl e Encounter Details Date Type Department Care Team (Late st Contact Info) Description 10/11/2018 Transcribed Document [facility] [facility] [place] [address] ProviderChula MD [address] [place] [address] Social History Tobacco Use Types [...] - Chula ProviderMD - 10/11/2018 8:13 AM CLEANING ATTENDANT [place] Main OR PostOp Summary Primary Physician: JUANY PRICE MD Finalized Date/Time: 10/11/18 13:49:18 Pt. Name: SHIVAM BERNARD D.O.B./Sex: 1985 Female Med Rec #: [id number] Physician: JUANY PRICE MD Financial #: [id number] Pt. Type: O Room/Bed: [facility] Admit/Disch: 10/11/18 04:54:00 - Institution: [facility] [place] PostOp Case Times Entry 1 In PACU II 10/11/18 11:36:00 Ready for PACU II 10/11/18 13:44:00 Discharge Discharge from PACU 10/11/18 13:44:00 II Last Modified By: Elba Ram Rn 10/11/18 13:49:17 SJCarole Main OR PostOp Case Times Audit 10/11/18 13:49:17 Lead Refinery Supervisor: STEPH Modifier: STEPH <+> 1 Ready for PACU II Discharge <+> 1 Discharge from PACU II Finalized By: Elba Ram, Rn Document Signatures Signed By: Elba Ram Rn 10/11/18 13:49 Electronically signed by Hanane [facility] Conversion Melt Supervisor Cerner at 01/06/2023 5:02 PM CDT documented in this encounter Plan of Treatment Not on file documented as of this encounter Visit Diagnoses Not on filedocumented in this encounter
--- OUTSIDE RECORDS SUMMARY | 2025-04-15 14:34 | XMS_ITS | Clinical Summary ---
Author Organization [employer] ([place], [place], [place], [place]) Address [address] [place] [address] Care Team Providers Care District Administrative Assistant Name Role Phone Unavailable Primary Care [...]
--- OUTSIDE RECORDS SUMMARY | 2025-04-15 14:34 | XMS_ITS | Encounter Summary ---
Author Organization [facility] Address [address] [place] [address] Care Team Providers Care Hand Printed Circuit Board Assembler Name Role Phone Provider, No Known Primary Care Provider [phone] Encounter Details Date Type Department Care Team [...] Description 04/30/2025 3:30 PM EDT Office Visit [facility] MATERNAL MEDICINE [address] [place] [address] 04/30/2025 3:30 PM EDT Appointment [facility] [address] [place] [address] documented as of this encounter Visit Diagnoses Not on filedocumented in this encounter Care Teams Hand Printed Circuit Board Assembler Relationship Specialty Start Date End Date Provider, No Known [facility] [place] [address] PCP - General 4/18/24 documented as of this encounter
--- OUTSIDE RECORDS SUMMARY | 2025-04-15 14:34 | XMS_ITS | Encounter Summary ---
Author Organization [facility] Address [address] [place] [address] Care Team Providers Care Social Work Faculty Member Name Role Phone Provider, No Known Primary Care Provider [phone] Encounter Details Date Type Department Care Team [...] [facility] [address] [place] [address] 04/30/2025 3:30 PM EDT Appointment [facility] [address] [place] [address] documented as of this encounter Visit Diagnoses Not on filedocumented in this encounter Care Teams Social Work Faculty Member Relationship Specialty Start Date End Date Provider, No Known [facility] [place] [address] PCP - General 4/18/24 documented as of this encounter
--- OUTSIDE RECORDS SUMMARY | 2025-04-15 14:34 | XMS_ITS | Referral Summary ---
Author Organization [employer] ([place], [place], [place], [place]) Address [address] [place] [address] Care Team Providers Care Spring Machine Operator Name Role Phone Unavailable Primary [...]
--- OUTSIDE RECORDS SUMMARY | 2025-04-15 14:34 | XMS_ITS | Encounter Summary ---
Author Organization [employer] ([place], [place], [place], [place]) Address [address] [place] [address] Care Team Providers Care Tool Maintenance Worker Name Role Phone Unavailable Primary Care Provider Unavailabl e Encounter Details Date Type Department Care Team (Late st Contact Info) Description 09/27/2018 Transcribed Document [facility] [place] [facility] [place] [address] ProviderChula MD [address] [place] [address] Social History Tobacco Use Types [...] - Chula ProviderMD - 09/27/2018 10:11 AM BALANCING MACHINE OPERATOR PAT Adult Entered On: 09/27/2018 10:15 EST [...] Oxygen Therapy Mode : Room air Veronica Marni RN - 09/27/2018 10:11 EST Height and Weight, Clinical Dosing Height Source : Stated Height Entry Format : [place] Height, Feet : 5 ft(Converted to: 152 cm, 60 Inch) Height, Inches : 4 Inch(Converted to: 0 ft 4 Inch, 10.16 cm) Clinical Height : 162.56 cm Weight Source : Standing scale Weight Entry Format : [place] Clinical Dosing Weight : 88.18 kg Weight, Pounds : 194 lb Body Surface Area (BSA) : 1.93 m2 Body Mass Index : 33.4 kg/m2 (HI) [place] Body Weight : 54 kg Veronica Marin [...] Obtained From : Patient Primary Language : Burkinan Preferred Communication Mode : Verbal Communication Barrier [...]
--- OUTSIDE RECORDS SUMMARY | 2025-04-15 14:34 | XMS_ITS | Clinical Summary ---
Author Organization [facility] Address [address] [place] [address] Care Team Providers Care Insurance Assistant Name Role Phone Rosemary Fuller Primary Care [...] Tdap) 09/12/2023 09/12/2013 Colonoscopy 12/29/2023 12/29/2021, 11/13/2019 [id number] Vaccine (1 - season) 2024 UKY-Depression Screening [...] Staff Role Janett Gonzalez RN Endo Nurse oRberto Carlos Davis CRNA TECHNICIAN ASSISTANT, No role selected Kell Carrera RN Endo Nurse Mady Alvarez Endo Nurse James Morales MD Anesthesiologist MD Daniel Dinero MD Proceduralist Electromechanical Technician Unknown Endo Nurse 1 Endo Nurse Preprocedure [...] of bowel preparation was evaluated using the [place] Bowel Preparation Scale with scores of: right [...] were documented in this log. Findings Healthy arad-qi-dfre ileocolonic anastomosis with no bleeding The rectum [...] <6.0% Children and Adolescents <7.5% . Source: [place] [employer]. Standards of medical care in diabetes, 2017. Diabetes Care.2017:40 (suppl 1):S1-S135. . HbA1c assay performed by an ion-exchange chromatography method that is certified traceable to the DCCT. 01/15/2019 10:5 6 AM EDT 01/15/2019 12:16 PM EDT us Faith Ruth MD LAB BLOOD ORDERABLES Final Resu lt SUNQUEST from Last 3 Months or Most Recently Relevant to Health Maintenance Insurance [facility] MEDICAID Care Teams Insurance Assistant Relationship Specialty Start Date End Date Rosemary Fuller PA [address] [place] [address] [place] [address] PCP - General 01/29/21
--- OUTSIDE RECORDS SUMMARY | 2025-04-15 14:34 | XMS_ITS | Encounter Summary ---
Author Organization [employer] ([place], [place], [place], [place]) Address [address] [place] [address] Care Team Providers Care Burial Vault Maker Name Role Phone Unavailable Primary Care Provider Unavailabl e Encounter Details Date Type Department Care Team (Late st Contact Info) Description 09/27/2018 Transcribed Document [facility] [place] [facility] [place] [address] ProviderChula MD [address] [place] [address] Social History Tobacco Use Types [...] - Chula ProviderMD - 09/27/2018 10:30 AM NUTRITIONALIST Patient: SHIVAM BERNARD Age: 33 Years Sex: [...] 12:56 Calcium Level 8.6 mg/dL 09/27/2018 12:56 Electronically signed by Shanika Koo Conversion Director Private Music Therapy Agency Cerner at 01/06/2023 4:47 PM CDT documented in this encounter Plan of Treatment Not on file documented as of this encounter Visit Diagnoses Not on filedocumented in this encounter
--- OUTSIDE RECORDS SUMMARY | 2025-04-15 14:34 | XMS_ITS | Encounter Summary ---
Author Organization [facility] Address [address] [place] [address] Care Team Providers Care Reducing Machine Operator Name Role Phone Provider, No Known Primary Care Provider [phone] Encounter Details Date Type Department Care Team [...] Description 04/30/2025 3:30 PM EDT Office Visit [facility] MATERNAL MEDICINE [address] [place] [address] 04/30/2025 3:30 PM EDT Appointment [facility] [address] [place] [address] documented as of this encounter Visit Diagnoses Not on filedocumented in this encounter Care Teams Reducing Machine Operator Relationship Specialty Start Date End Date Provider, No Known [facility] [place] [address] PCP - General 4/18/24 documented as of this encounter
--- NOTE | 2025-04-15 14:45 | US_ITS ---
PROCEDURE: US OB BIOPHYSICAL PROFILE CLINICAL INDICATION: Needs for IUGR COMPARISON: US US OB <= 14 WEEKS FETUS from 10/31/2024 US US OB BIOPHYSICAL PROFILE from 04/01/2025 FINDINGS: Transabdominal sonographic images of the uterus were obtained. From her established due date she is 33weeks 6days. The following parameters are obtained: Viable Fetus in the cephalic presentation with a right lateral placenta grade 2. The cervix measures 3.62 cm Measurements: heart Rate = 130bpm Amniotic fluid index: 14.54cm, MVP 6.98 cm Qualitative AFV:2 Breathing movements: 2 Gross Body Movements: 2 Tone: 2 Biophysical profile score: 8 No obvious anomalies evident.Kidneys, profile, bladder, stomach, three-vessel cord appear normal. IMPRESSION: 1. Viable fetus in the cephalic presentation with a right lateral placenta grade 2. 2. The fluid is within normal limits with an amniotic fluid index 14.54 cm, MVP 6.98 cm. 3. Biophysical profile is 8/8 with good breathing movement and movement seen. 4. Limited anatomical scan appears normal. Dictated by: Juan F Mcallister MD 04/15/2025 16:11 Juan F Mcallister MD in OV 04/15/2025 16:11
== END 2025-04-15 23:59 | disposition home or self-care (01) ==
LOC: RAD 14:31
PROVIDERS: PCP Nurse Practitioner; Visit Provider Obstetrics & Gynecology
DX: O36.5930 Maternal care for other known or suspected poor fetal growth, third trimester, not applicable or unspecified (principal); R21 Rash and other nonspecific skin eruption; Z3A.33 33 weeks gestation of pregnancy
CPT/HCPCS: 76819; 87101

== ENCOUNTER 2025-04-18 14:13 | Outpatient (CLI) | payer OTHER, SELFPAY ==
--- OUTSIDE RECORDS SUMMARY | 2025-02-25 14:00 | XMS_ITS | Encounter Summary ---
Author Organization [facility] Address [address] [place] [address] Care Team Providers Care Transport Conductor Name Role Phone Provider, No Known Primary Care Provider [phone] Reason for Visit * Diagnostic Imaging (Routine) - Closed Specialty Diagnoses / Procedures Referred By Carolyne diaz Referred To Contact Radiology Diagnoses Abnormal genetic test during Chronic hypertension affecting Procedures [facility] Bentley, Dominick Silva MD [address] [place] [address] Phone: tel: fax: Referral ID Status Reason Start Date Expiration Date Visits Re quested Visits Authorized [id number] Closed 12/30/2024 03/31/2026 4 4 Encounter Details Date Type Department Care Team (Latest Contact Info) Description 02/25/2025 2:00 PM EDT - 02/25/2025 11:59 PM EDT Hospital Encounter [facility] PER [facility]AG CTR [address] [place] [address] Wilber Bender, 1210 [facility] [address] [id number] Discharge Disposition: Home or Self Care Social [...] Description 04/30/2025 3:30 PM EDT Office Visit [facility]IC[facility] [address] [place] [address] 04/30/2025 3:30 PM EDT Appointment [facility] US PER DIAG CTR [address] [place] [address] documented as of this encounter Procedures Procedure Name Priority Date/Time Associated Diagnosis Comments US [facility] Routine 02/25/2025 2:41 PM EDT Abnormal genetic test during Chronic hypertension affecting documented in this encounter Results * [facility] (02/25/2025 2:41 PM EDT) Anatomical Region Laterality Modality Ultrasound 02/25/2025 2:28 PM EDT Narrative 02/26/2025 10:26 AM EDT PAT NAME: SHIVAM BERNARD [facility] REC#: [id number] DA: [id number] PAT GEND: F PAT TYPE: O EXAM ALIREZA: [id number] REF PHYS WILBER BENDER Comparison Studies The [...] limited by position and maternal habitus ========= Blakc . Number of fetuses: 1 Dating ====== [...] EFW (oz) 14 oz EFW by: Hadlock (FQP-GJ-DC-FL) Extended Cav. septi pel. tr 3.8 mm Document Specialist 5.2 mm Head / Face / Neck [...] IVC: Appears Normal 3-vessel view: Appears normal 7-wlfynd-omrlpah view: suboptimal Cardiac axis: Normal Stomach: Normal Kidneys: Normal Bladder: Normal Gender: female Wants to know gender: yes Echocardiogram 2D Echo (Qualitatively) 4-chamber view: Appears normal LVOT view: Appears normal RVOT view: Appears normal 3-vessel view: Appears normal 1-ifszyc-japbivp view: suboptimal Aortic arch view: Appears normal [...] 69% Yang Umbilical A RI 0.70 65% Yagn Umbilical A PS -34.11 cm/s Umbilical A [...] Umbilical A S / D 3.38 61% Yagn Umbilical A HR 152 bpm Maternal Structures Uterus / Cervix Approach: Transabdominal Cervical length 37.3 mm Impression Today's exam reveals a SIUP in cephalic presentation with biometry consistent with dates. Limited anatomic survey appears normal including echocardiogram views. The BHAVYA and UA dopplers are normal. Recommendation Follow up 4 weeks Coding ======= Description: 97457-58 Follow Up Ultrasound Description: 85620-41 Echo 2D, heart - initial Description: 25186-72 Doppler echo color flow Description: 61985-95 Doppler Umbilical Artery Basin Cleaner: Josephine Gonzales RDMS Physician: Jessica Alejandra MD, FACOG Electronically signed by: Jessica Alejandra MD, FACOG at: 10:26 Procedure Note Jessica Alejandra MD - 02/26/2025 PAT NAME: SHIVAM BERNARD MED REC#: [id number] DA: [id number] PAT GEND: F PAT TYPE: O EXAM ALIREZA: [id number] REF PHYS WILBER BENDER Comparison Studies The findings of this study are compared to the prior ultrasound studydated 01/27/25 Patient Status Outpatient Indication ======== Abnormal NIPT (high risk triploidy, T13, T18.) AMA. CHTN. Hx preeclampsia& PTD (32 & 35 wk). Obesity BMI 39. Maternal Assessment Adwpug816 cm Height (ft)5 ft Height (in)3 in Rphbgv243 kg Weight (lb)225 lb BMI39.87 kg/m Method ======= Transabdominal ultrasound examination. View: Suboptimal view: limited byfetal position and maternal habitus ========= Black . Number of fetuses: 1 Dating ====== Method of dating:based on stated ARIA GA by prior ntxvvleoob87 w + 6 d ARIA by prior assessment:05/28/2025 Ultrasound examination on:02/25/2025 GA by U/S based upon:AC, BPD, Femur, HC GA by U/S26 w + 1 d ARIA by U/S:06/02/2025 Previous dating:based on stated ARIA, selected on 12/30/2024 Agreed ARIA of previous datin05/28/2025 Assigned:based on stated ARIA, selected on 02/25/2025 Assigned GA26 w + 6 d Assigned ARIA:05/28/2025 tkciyv168 d Biometry Standard BPD66.5 mm 26w 6d 37% Hadlock OFD82.7 mm 26w 6d 51% Bella HC242.5 mm 26w 2d 11% Hadlock AC213.9 mm 25w 6d 16% Hadlock Femur46.4 mm 25w 3d 6% Hadlock Mgerfjl20.5 mm 25w 0d 4% Bella HC / AC1.13 QDX000 g 25w 4d 10% Hadlock EFW (lb)1 lb EFW (oz)14 oz EFW by:Hadlock (HIF-QX-DI-FL) Extended Cav. septi pel. tr3.8 mm Vp5.2 [...] / HC0.19 FL / AC0.22 Other Structures ROS804 bpm General Evaluation Cardiac activity present. FHR [...] SVC:Appears Normal IVC:Appears Normal 3-vessel view:Appears normal 1-mkyvzh-itqwift view:suboptimal Cardiac axis:Normal Stomach:Normal Kidneys:Normal Bladder:Normal Gender:female Wants to know gender:yes Echocardiogram 2D Echo (Qualitatively) 4-chamber view:Appears normal LVOT view:Appears normal RVOT view:Appears normal 3-vessel view:Appears normal 8-nkxqvw-xngjfxz view:suboptimal Aortic arch view:Appears normal Ductal arch [...] Maternal Structures Uterus / Cervix Approach:Transabdominal Cervical qjkkyz98.3 mm Impression Today's exam reveals a SIUP in cephalic presentation with biometryconsistent with dates. Limited anatomic survey appears normalincluding echocardiogram views. The BHAVYA and UA dopplers are normal. Recommendation Follow up 4 weeks Coding ======= Description:00614-58 Follow Up Ultrasound Description:66347-50 Echo 2D, heart - initial Description:69150-46 Doppler echo color flow Description:61321-09 Doppler Umbilical Artery Basin Cleaner: Josephine Gonzales RDMS Physician: Jessica Alejandra MD, FACOG Electronically signed by: Jessica Alejandra MD, FACOG at: 1110:26 us Dominick [place] MD IMG US ORDERABLES Final Result documented in this encounter Visit Diagnoses Not on filedocumented in this encounter Care Teams Transport Conductor Relationship Specialty Start Date End Date Provider, [place] [address] PCP - General 01/04/24 documented as of this encounter
--- OUTSIDE RECORDS SUMMARY | 2025-02-25 14:15 | XMS_ITS | Encounter Summary ---
[facility] Address [address] [place] [address] Care Team Providers Care Search Engine Optimization Consultant Name Role Phone Provider, No Known Primary Care Provider [phone] Reason for Visit * Reason Comments AMA; CHTN; hx preeclampsia; hx PTD; abno rmal NIPT Encounter Details Date Type Department Care Team (Late st Contact Info) Description 02/25/2025 2:15 PM EDT Office Visit [facility]ERNAL MEDICINE [address] [address] Jessica Alejandra MD 1700 [facility] [address] [place] [phone] Antepartum multigravida of advanced maternal age (Primary [...] under imaging tab of patient chart in [facility] (Viewpoint report). Jessica Alejandra MD documented in this encounter Plan of Treatment Upcoming Encounters Date Type Department Care Team (Late st Contact Info) Description 04/30/2025 3:30 PM EDT Office Visit [facility] MEDICINE 1700 [facility] [address] [place] [address] 04/30/2025 3:30 PM EDT Appointment [facility] [address] [place] [address] documented as of this encounter Visit Diagnoses Diagnosis Antepartum multigravida of advanced maternal age- Primary Chronic hypertension affecting documented in this encounter Care Teams Search Engine Optimization Consultant Relationship Specialty Start Date End Date Provider, [place] [address] PCP - General 01/04/24 documented as of this encounter
--- OUTSIDE RECORDS SUMMARY | 2025-03-25 15:00 | XMS_ITS | Encounter Summary ---
Author Organization [facility] Address [address] [place] [address] Care Team Providers Care Education Dean Name Role Phone Provider, No Known Primary Care Provider [phone] Reason for Referral * Diagnostic Imaging (Routine) - Authorized Specialty Diagnoses / Procedures Referred By Contac t Referred To Contact Radiology Diagnoses Chronic hypertension affecting Antepartum multigravida of advanced maternal age Poor growth affecting management of mother in third trimester, single or unspecified fetus Procedures [facility] Dominick Bentley MD [address] [place] [address] Phone: tel: fax: [facility] US PER DIAG CTR [address] [place] [address] Phone: tel: Referral ID Status Reason Start Date Expiration Date V isits Requested Visits Authorized [id number] Authorized 03/25/2025 06/24/2026 3 3 Reason for Visit * Reason Comments ama, CHTN, ABN NIPT Encounter Details Date Type Department Care Team (Late st Contact Info) Description 03/25/2025 3:00 PM EDT Office Visit [facility] MATERNAL MEDICINE [address] [place] [address] Dominick Bentley MD [address] [facility] [address] [place] [address] Poor growth affecting management of mother in [...] given her abnormal NIPT this could be medical customer service representative of that testing. As of note [...] that CMV testing was performed with primary CART ATTENDANT and she said that the IgM was positive and that the antibody was high though we do not have records of this. This could be indicative of IgM with high avidity which could be medical customer service representative of new infection though patient states this was performed at the beginning of . We discussed that regardless of cause we recommend continued close testing and monitoring the fetus. Plan for follow-up here in 2 weeks for repeat growth ultrasound. Recommend twice-weekly testing in your office (1 being BPP, HBAVYA, umbilical artery Dopplers). Would recommend delivery at [...] given her abnormal NIPT this could be medical customer service representative of that testing. As of note [...] that CMV testing was performed with primary CART ATTENDANT and she said that the IgM was positive and that the antibody was high though we do not have records of this. This could be indicative of IgM with high avidity which could be medical customer service representative of new infection though patient states [...] or sooner if clinically indicated. Orders: - [facility]; Standing 2. Chronic hypertension affecting Assessment & Plan: Patient presents for follow-up growth ultrasound secondary to AMA, chronic hypertension, abnormal NIPT. Blood sugar today 127/80. Orders: - [facility]; Standing 3. Antepartum multigravida of advanced maternal age - [facility]; Standing 4. Abnormal genetic test during Follow [...] [facility]. Dominick Bentley MD, FACOG Maternal Medicine, [facility] documented in this encounter Plan of Treatment Upcoming Encounters Date Type Department Care Team (Late st Contact Info) Description 04/30/2025 3:30 PM EDT Office Visit [facility] [address] [facility] [address] [place] [address] 04/30/2025 3:30 PM EDT Appointment [facility] US PER DIAG CTR [address] [place] [address] Scheduled Orders Name Type Priority Associated Diagnoses Orde r Schedule [facility] Imaging Routine Chronic hypertension affecting Antepartum multigravida of advanced maternal age Poor growth affecting management of mother in third trimester, single or unspecified fetus Every 2 Weeks for 3 Occurrences starting 03/25/2025 until 03/25/2026 documented as of this encounter Visit Diagnoses Diagnosis Poor growth affecting management of mother in third trimester, single or unspecified fetus- Primary Chronic hypertension affecting Antepartum multigravida of advanced maternal age Abnormal genetic test during documented in this encounter Care Teams Education Dean Relationship Specialty Start Date End Date Provider, [place] [address] PCP - General 01/04/24 documented as of this encounter
--- OUTSIDE RECORDS SUMMARY | 2025-03-25 15:00 | XMS_ITS | Encounter Summary ---
Author Organization [facility] Address [address] [place] [address] Care Team Providers Care General Car Supervisor Yard Name Role Phone Provider, No Known Primary Care Provider [phone] Reason for Visit * Diagnostic Imaging (Routine) - Closed Specialty Diagnoses / Procedures Referred By Carolyne diaz Referred To Contact Radiology Diagnoses Abnormal genetic test during Chronic hypertension affecting Procedures [facility] Bentley, Dominick Silva MD [address] [place] [address] Phone: tel: fax: Referral ID Status Reason Start Date Expiration Date Visits Re quested Visits Authorized [id number] Closed 12/30/2024 03/31/2026 4 4 Encounter Details Date Type Department Care Team (Latest Contact Info) Description 03/25/2025 3:00 PM EDT - 03/25/2025 11:59 PM EDT Hospital Encounter [facility] PER DI[facility] [address] [place] [address] Wilber Bender, [address] [facility] [address] [id number] Discharge Disposition: Home or Self Care Social [...] 04/30/2025 3:30 PM EDT Office Visit [facility] [address] [facility] [address] [place] [address] 04/30/2025 3:30 PM EDT Appointment [facility] US PER DIAG CTR [address] [place] [address] documented as of this encounter Procedures Procedure Name Priority Date/Time Associated Diagnosis Comments [facility] Routine 03/25/2025 3:56 PM EDT Abnormal genetic test during Chronic hypertension affecting documented in this encounter Results * [facility] (03/25/2025 3:56 PM EDT) Anatomical Region Laterality Modality Ultrasound 03/25/2025 3:25 PM EDT Narrative 03/25/2025 4:18 PM EDT PAT NAME: SHIVAM BERNARD MED REC#: [id number] DA: [id number] PAT GEND: F PAT TYPE: O EXAM ALIREZA: [id number] REF PHYS WILBER BENDER Comparison Studies The [...] EFW (oz) 13 oz EFW by: Hadlock ([id number]-CS-[id number]-FL) Extended Tibia 45.8 mm 27w 6d 2% Bella Fibula 45.4 mm 28w 1d 15% Bella Foot 57.5 mm 9% Chitty Radius 37.7 mm 26w 2d 14% Bella Ulna 41.3 mm 26w 6d <1% Bella Cav. septi pel. tr 5.5 mm Interior Design Project Manager 3.8 mm CM 4.7 mm 3% Nicolaides [...] (one being BPP/BHAVYA/UA dopplers). Coding ======= Description: 08456-78 Follow Up Ultrasound Description: 83593-29 BPP without NST Description: 34036-73 Doppler Umbilical Artery Law Enforcement Officer: Yoly Choudhary RDMS Physician: Dominick Bentley MD, FACOG Electronically signed by: Dominick Bentley MD, FACOG at: 16:18 Procedure Note Dominick Bentley MD - 03/25/2025 PAT NAME: SHIVAM BERNARD MED REC#: [id number] DA: [id number] PAT GEND: F PAT TYPE: O EXAM ALIREZA: [id number] REF PHYS WILBER BENDER Comparison Studies The findings of this study are compared to the prior ultrasound studydated 02/25/25. Patient Status Outpatient Indication ======== Abnormal NIPT (high risk triploidy, T13, T18.) AMA. CHTN. Hx preeclampsia& PTD (32 & 35 wk). Obesity BMI 39. Maternal Assessment Feeuxa807 cm Height (ft)5 ft Height (in)3 in Eghuwk991 kg Weight (lb)227 lb BMI40.22 kg/m Method ======= Transabdominal ultrasound examination ========= Black . Number of fetuses: 1 Dating ====== GA by prior [id number] w + 6 d ARIA by prior [...] GA30 w + 6 d Assigned ARIA:05/28/2025 [id number] d Biometry Standard BPD74.1 mm 29w 5d 11% Hadlock OFD93.7 mm 30w 2d 33% Bella HC267.1 mm 29w 1d <1% Hadlock Cerebellum tr38.6 mm 31w 3d 48% Hill AC252.3 mm 29w 3d 11% Hadlock Femur51.2 mm 27w 3d <1% Hadlock Otrvpxu70.3 mm 26w 2d <1% Bella HC / AC1.06 EFW1,278 g 28w 3d 3% Hadlock EFW (lb)2 lb EFW (oz)13 oz EFW by:Hadlock ([id number]-[id number]-FL) Extended Tibia45.8 mm 27w 6d 2% Bella Uglzms55.4 mm 28w 1d 15% Bella Foot57.5 mm 9% Chitty Vpgpsg04.7 mm 26w 2d 14% Bella Ulna41.3 mm 26w 6d <1% Bella Cav. septi pel. tr5.5 mm Vp3.8 mm CM4.7 mm 3% Nicolaides Head / Face / Neck Cephalic index0.79 46% Nicolaides Extremities / Bony Struc FL / BPD0.69 FL / HC0.19 FL / AC0.20 Other Structures EUF048 bpm General Evaluation Cardiac activity present. FHR [...] office (one being BPP/BHAVYA/UA dopplers). Coding ======= Description:29884-95 Follow Up Ultrasound Description:53273-73 BPP without NST Description:05093-45 Doppler Umbilical Artery Law Enforcement Officer: Yoly Choudhary RDMS Physician: Dominick Bentley MD, FACOG Electronically signed by: Dominick Bentley MD, FACOG at: 16:18 us Dominick Bentley MD IMG US ORDERABLES Final Result documented in this encounter Visit Diagnoses Not on filedocumented in this encounter Care Teams General Car Supervisor Yard Relationship Specialty Start Date End Date Provider, [place] [address] PCP - General 01/04/24 documented as of this encounter
--- OUTSIDE RECORDS SUMMARY | 2025-04-08 14:33 | XMS_ITS | Encounter Summary ---
Author Organization [facility] Address [address] [place] [address] Care Team Providers Care Fitting Room Supervisor Name Role Phone Provider, No Known Primary Care Provider [phone] Reason for Referral * Diagnostic Imaging (Routine) - Closed Specialty Diagnoses / Procedures Referred By Carolyne diaz Referred To Contact Radiology Diagnoses Abnormal genetic test during Chronic hypertension affecting Procedures [facility] Dominick Bentley MD [address] [place] [address] Phone: tel: fax: Referral ID Status Reason Start Date Expiration Date Visits Re quested Visits Authorized [id number] Closed 12/30/2024 03/31/2026 4 4 Reason for Visit * Diagnostic Imaging (Routine) - Closed Specialty Diagnoses / Procedures Referred By Carolyne diaz Referred To Contact Radiology Diagnoses Abnormal genetic test during Chronic hypertension affecting Procedures [facility] [place] Dominick Bentley MD [address] [facility] [address] [place] [address] Phone: tel: fax: Referral ID Status Reason Start Date Expiration Date Visits Re quested Visits Authorized [id number] Closed 12/30/2024 03/31/2026 4 4 Encounter Details Date Type Department Care Team (Late st Contact Info) Description 04/08/2025 2:33 PM EDT - 04/08/2025 11:59 PM EDT Hospital Encounter [facility] [address] [place] [address] Dominick Bentley MD [address] [place], [place] [id number] Abnormal genetic test during ; Chronic hypertension [...] by mouth Every 6 (Six) Hours. 10/19/2023 omeprazole (priLOSEC) 20 MG capsule Take 1 [...] Description 04/30/2025 3:30 PM EDT Office Visit [facility] [address] [facility] [address] [place] [address] 04/30/2025 3:30 PM EDT [facility]ment [facility] [address] [place] [address] documented as of this encounter Procedures Procedure Name Priority Date/Time Associated Diagnosis Comments [facility] Routine 04/08/2025 3:27 PM EDT Abnormal genetic test during Chronic hypertension affecting documented in this encounter Results * [facility] (04/08/2025 3:27 PM EDT) Anatomical Region Laterality Modality Ultrasound 04/08/2025 3:10 PM EDT Narrative 04/09/2025 12:30 PM EDT PAT NAME: SHIVAM BERNARD MED REC#: [id number] DA: [id number] PAT GEND: F PAT TYPE: O EXAM ALIREZA: [id number] REF PHYS WILBER BHAKTA Comparison Studies The [...] EFW (oz) 14 oz EFW by: Hadlock (ZOJ-BW-QY-FL) Extended Cav. septi pel. tr 4.9 mm Breaker Layer 5.2 mm CM 8.0 mm 70% Nicolaides [...] movements 2: tone 2: Amniotic fluid volume 8 Biophysical profile score Consultation / Office Visit Office note to follow Impression Cephalic S<D - mild IUGR Normal fluid BPP 8/8 UA doppler normal Recommendation Twice weekly testing in your office recommended Follow up growth in 3 weeks scheduled Coding ======= Description: 23312-89 Follow Up Ultrasound Description: 82022-79 BPP without NST Description: 90789-34 Doppler Umbilical Artery Photoresist Contact Printer: Josephine Gonzales RDMS Physician: Jessica Alejandra MD, FACOG Electronically signed by: Jessica Alejandra MD, FACOG at: 12:30 Procedure Note Jessica Alejandra MD - 04/09/2025 PAT NAME: SHIVAM BERNARD MED REC#: [id number] DA: [id number] PAT GEND: F PAT TYPE: O EXAM ALIREZA: [id number] REF PHYS WILBER BHAKTA Comparison Studies The findings of this study are compared to the prior ultrasound studydated 03/25/25 Patient Status Outpatient Indication ======== AMA. CHTN. Follow up IUGR. Abnormal NIPT (high risk triploidy, T13, T18.)Hx preeclampsia & PTD (32 & 35 wk). Morbid obesity BMI 40. Maternal Assessment Acnles912 cm Height (ft)5 ft Height (in)3 in Rtdffz425 kg Weight (lb)227 lb BMI40.22 kg/m Method ======= Transabdominal ultrasound examination. View: Adequate view ========= Black . Number of fetuses: 1 Dating ====== Method of dating:based on stated ARIA GA by prior [id number] w + 6 d ARIA by prior assessment:05/28/2025 Ultrasound examination on:04/08/2025 GA by U/S based upon:AC, BPD, Femur, HC GA by U/S31 w + 4 d ARIA by U/S:06/06/2025 Previous dating:based on stated ARIA, selected on 02/25/2025 Agreed ARIA of previous datin05/28/2025 Assigned:based on stated ARIA, selected on 04/08/2025 Assigned GA32 w + 6 d Assigned ARIA:05/28/2025 d Biometry Standard BPD80.2 mm 32w 1d 24% Hadlock OFD98.4 mm 31w 6d 23% Bella HC287.0 mm 31w 4d 2% Hadlock Cerebellum tr41.5 mm 32w 6d 31% Hill AC273.7 mm 31w 3d 14% Hadlock Femur59.6 mm 31w 0d 5% Hadlock Pwiklol64.1 mm 30w 6d 13% Bella HC / AC1.05 EFW1,758 g 31w 0d 9% Hadlock EFW (lb)3 lb EFW (oz)14 oz EFW by:Hadlock (RYN-KW-DX-FL) Extended Cav. septi pel. tr4.9 mm Vp5.2 mm CM8.0 mm 70% Nicolaides Head / Face / Neck Cephalic index0.82 66% Nicolaides Extremities / Bony Struc FL / BPD0.74 FL / HC0.21 FL / AC0.22 Other Structures KIK258 bpm General Evaluation Cardiac activity present. FHR [...] growth in 3 weeks scheduled Coding ======= Description:24443-45 Follow Up Ultrasound Description:79677-57 BPP without NST Description:50706-93 Doppler Umbilical Artery Photoresist Contact Printer: Josephine Gonzales RDMS Physician: Jessica Alejandra MD, FACOG Electronically signed by: Jessica Alejandra MD, FACOG at: 2312:30 us Dominick Bentley MD [facility] ORDERABLES Final Result documented in this encounter Visit Diagnoses Diagnosis Abnormal genetic test during Chronic hypertension affecting documented in this encounter Care Teams Fitting Room Supervisor Relationship Specialty Start Date End Date Provider, [place] [address] PCP - General 01/04/24 documented as of this encounter
--- OUTSIDE RECORDS SUMMARY | 2025-04-08 14:45 | XMS_ITS | Encounter Summary ---
Author Organization [facility] Address [address] [place] [address] Care Team Providers Care Brake Linings Coater Name Role Phone Provider, No Known Primary Care Provider [phone] Reason for Visit * Reason Comments CHTN, AMA, abn NIPT, MO, hx PreE, IUGR Encounter Details Date Type Department Care Team (Late st Contact Info) Description 04/08/2025 2:45 PM EDT Office Visit [facility] MATERNAL MEDICINE [address] [address] Jessica Alejandra MD [address] [phone] Chronic hypertension affecting (Primary Dx); Antepartum multigravida [...] CVS. Jessica Alejandra MD FACOG Maternal Medicine, [facility] 04/08/2025 documented in this encounter Plan of Treatment Upcoming Encounters Date Type Department Care Team (Late st Contact Info) Description 04/30/2025 3:30 PM EDT Office Visit [facility] [address] [facility] [address] [place] [address] 04/30/2025 3:30 PM EDT Appointment [facility] US PER DIAG CTR [address] [place] [address] documented as of this encounter Visit Diagnoses Diagnosis Chronic hypertension affecting - Primary Antepartum multigravida of advanced maternal age Abnormal genetic test during Poor growth affecting management of mother in third trimester, single or unspecified fetus documented in this encounter Care Teams Brake Linings Coater Relationship Specialty Start Date End Date Provider, [place] [address] PCP - General 01/04/24 documented as of this encounter
--- OUTSIDE RECORDS SUMMARY | 2025-04-18 14:15 | XMS_ITS | Encounter Summary ---
Author Organization [employer] ([place], [place], [place], [place]) Address [address] [place] [address] Care Team Providers Care Wardsperson Name Role Phone Unavailable Primary Care Provider Unavailabl e Encounter Details Date Type Department Care Team (Late st Contact Info) Description 10/11/2018 Transcribed Document [facility] [place] [facility] [place] [address] ProviderChula MD [address] [place] [address] Social History Tobacco Use Types [...] - Historical ProviderMD - 10/11/2018 8:12 AM CASH APPLICATIONS MANAGER Peripheral Nerve Block Entered On: 10/11/2018 8:13 [...] 8:12 EST Electronically signed by [facility] Conversion Distribution Superintendent Cerner at 01/06/2023 4:48 PM CDT documented in this encounter Plan of Treatment Not on file documented as of this encounter Visit Diagnoses Not on filedocumented in this encounter
--- OUTSIDE RECORDS SUMMARY | 2025-04-18 14:15 | XMS_ITS | Encounter Summary ---
Author Organization [facility] Address [address] [place] [address] Care Team Providers Care Bi Tri Operator Name Role Phone Provider, No Known Primary Care Provider [phone] Encounter Details Date Type Department Care Team [...] [facility] MATERNAL MEDICINE [address] [place] [address] 04/30/2025 3:30 PM EDT Appointment [facility] [address] [place] [address] documented as of this encounter Visit Diagnoses Not on filedocumented in this encounter Care Teams Bi Tri Operator Relationship Specialty Start Date End Date Provider, [place] [address] PCP - General 4/18/24 documented as of this encounter
--- OUTSIDE RECORDS SUMMARY | 2025-04-18 14:15 | XMS_ITS | Encounter Summary ---
Author Organization [employer] ([place], [place], [place], [place]) Address [address] [place] [address] Care Team Providers Care Retail Store Clerk Name Role Phone Unavailable Primary Care Provider Unavailabl e Encounter Details Date Type Department Care Team (Late st Contact Info) Description 09/27/2018 Transcribed Document [facility] [place] [facility] [place] [address] ProviderChula MD [address] [place] [address] Social History Tobacco Use Types [...] - Chula ProviderMD - 09/27/2018 10:11 AM STEAM DISTRIBUTION SUPERVISOR PAT Adult Entered On: 09/27/2018 10:15 [...] Source : Stated Height Entry Format : [place] Height, Feet : 5 ft(Converted to: 152 cm, 60 Inch) Height, Inches : 4 Inch(Converted to: 0 ft 4 Inch, 10.16 cm) Clinical Height : 162.56 cm Weight Source : Standing scale Weight Entry Format : [place] Clinical Dosing Weight : 88.18 kg Weight, Pounds : 194 lb Body Surface Area (BSA) : 1.93 m2 Body Mass Index : 33.4 kg/m2 (HI) [place] Body Weight : 54 kg Veronica Marin [...] Obtained From : Patient Primary Language : Botswanan Preferred Communication Mode : Verbal Communication Barrier [...]
--- OUTSIDE RECORDS SUMMARY | 2025-04-18 14:15 | XMS_ITS | Encounter Summary ---
Author Organization [facility] ([place], [place], [place], [place]) Address [address] [place] [address] Care Team Providers Care Senior Technical Recruiter Name Role Phone Unavailable Primary Care Provider Unavailabl e Encounter Details Date Type Department Care Team (Late st Contact Info) Description 10/11/2018 Transcribed Document [facility] [place] [facility] [place] [address] ProviderChula MD [address] [place] [address] Social History Tobacco Use Types [...] - Chula ProviderMD - 10/11/2018 8:13 AM LOOM WINDER TENDER POLINA Main OR PostOp Summary Primary Physician: JUANY PRICE MD Finalized Date/Time: 10/11/18 13:49:18 Pt. Name: SHIVAM BERNARD D.O.B./Sex: 1985 Female Med Rec #: [id number] Physician: JUANY PRICE MD Financial #: [id number] Pt. Type: O Room/Bed: [facility] Admit/Disch: 10/11/18 04:54:00 - [place] [facility] [place] PostOp Case Times Entry 1 In PACU II 10/11/18 11:36:00 Ready for PACU II 10/11/18 13:44:00 Discharge Discharge from PACU 10/11/18 13:44:00 II Last Modified By: Elba Ram Rn 10/11/18 13:49:17 S[facility] Main OR PostOp Case Times Audit 10/11/18 13:49:17 Speech Therapist Technician: STEPH Modifier: STEPH <+> 1 Ready for PACU II Discharge <+> 1 Discharge from PACU II Finalized By: Elba Ram, Rn Document Signatures Signed By: Elba Ram Rn 10/11/18 13:49 Electronically signed by Hanane [facility] Conversion Parts Chaser Cerner at 01/06/2023 5:02 PM CDT documented in this encounter Plan of Treatment Not on file documented as of this encounter Visit Diagnoses Not on filedocumented in this encounter
--- OUTSIDE RECORDS SUMMARY | 2025-04-18 14:15 | XMS_ITS | Encounter Summary ---
Author Organization [employer] ([place], [place], [place], [place]) Address [address] [place] [address] Care Team Providers Care Brand Sales Consultant Name Role Phone Unavailable Primary Care Provider Unavailabl e Encounter Details Date Type Department Care Team (Late st Contact Info) Description 10/11/2018 Transcribed Document [facility] [place] [facility] [place] [address] ProviderChula MD [address] [place] [address] Social History Tobacco Use Types [...] - Chula ProviderMD - 10/11/2018 8:13 AM FLORAL DESIGNER SALESPERSON POLINA Main OR IntraOp Summary Primary Physician: JUANY PRICE MD Finalized Date/Time: 10/11/18 09:39:55 Pt. Name: RAIN BERNARDLONNIE Acevedo /Sex: 1985 Female Med Rec #: [id number] Physician: JUANY PRICE MD Financial #: [id number] Pt. Type: O Room/Bed: [facility] Admit/Disch: 10/11/18 04:54:00 - [place] [facility] [place] Case Attendance Entry 1 Entry 2 Entry 3 Case Attendee JUANY PRICE MD BRUNNER, RICHARD V, Chelsey Bran Rn-Surgery Role Performed Surgeon/Proceduralist, WET MACHINE OPERATOR/Nurse Insurance Sales Assistant Mat Man, First First Time In 10/11/18 07:39:00 10/11/18 [...] BRUNER, HAVEN Role Performed Scrub, First Physician dental ceramist assistant Drill Press Set Up Operator Radial Time In 10/11/18 07:39:00 10/11/18 07:39:00 10/11/18 07:39:00 Time Out 10/11/18 09:33:00 10/11/18 09:33:00 10/11/18 09:33:00 Procedure Lumbar Microdiscectomy Lumbar Microdiscectomy Lumbar Microdiscectomy Other Attendee Superficial Wound Closed By: Last Modified By: Chelsey Mae Demike, Cynthia Y, Demike, Cynthia Y, Rn-Surgery 10/11/18 Rn-Surgery 10/11/18 Rn-Surgery 10/11/18 09:33:47 09:33:47 09:33:47 Entry 7 Entry 8 Case Attendee FABIAN CRUZ, RN [place] [address] [facility] Role Performed Mat Man, Second Scrub, Second Time In 10/11/18 08:48:00 10/11/18 09:02:00 Time Out 10/11/18 09:02:00 10/11/18 09:33:00 Procedure Lumbar Microdiscectomy Lumbar Microdiscectomy Other Attendee Superficial Wound Closed By: Last Modified By: Chelsey Mae Demike, Cynthia Y, Rn-Surgery 10/11/18 Rn-Surgery 10/11/18 09:33:47 09:33:47 [facility] IntraOp Case Attendance Audit 10/11/18 09:33:47 Fishing Tool Supervisor: [id number] Modifier: [id number] 1 <*> Procedure Lumbar Microdiscectomy 2 <+> [...] 8 <*> Procedure Lumbar Microdiscectomy 10/11/18 09:21:03 Fishing Tool Supervisor: [id number] Modifier: [id number] 1 <+> Time Out 1 <*> Procedure Lumbar Microdiscectomy 10/11/18 09:04:27 Fishing Tool Supervisor: [id number] Modifier: [id number] <+> 1 Procedure 2 <*> Procedure Lumbar Microdiscectomy 3 <*> Procedure Lumbar Microdiscectomy 4 <*> Procedure Lumbar Microdiscectomy 5 <*> Procedure Lumbar Microdiscectomy 6 <*> Procedure Lumbar Microdiscectomy 7 <*> Procedure Lumbar Microdiscectomy 8 <*> Procedure Lumbar Microdiscectomy 10/11/18 09:04:05 Fishing Tool Supervisor: [id number] Modifier: [id number] <+> 7 Case Attendee <+> 7 Role Performed <+> 7 Time In <+> 7 Time Out <+> 7 Procedure <+> 8 Case Attendee <+> 8 Role Performed <+> 8 Time In <+> 8 Procedure 10/11/18 08:29:38 Fishing Tool Supervisor: [id number] Modifier: [id number] <*> Procedure Lumbar Microdiscectomy 3 <*> Procedure Lumbar Microdiscectomy 4 <*> Procedure Lumbar Microdiscectomy 5 <*> Procedure Lumbar Microdiscectomy 6 <+> Time In 6 <*> Procedure Lumbar Microdiscectomy 10/11/18 08:24:25 Fishing Tool Supervisor: [id number] Modifier: [id number] 2 <*> Procedure Lumbar Microdiscectomy 3 <*> Procedure Lumbar Microdiscectomy 4 <*> Procedure Lumbar Microdiscectomy 5 <+> Time In 5 <*> Procedure Lumbar Microdiscectomy <+> 6 Case Attendee <+> 6 Role Performed <+> 6 Procedure 10/11/18 08:13:49 Fishing Tool Supervisor: [id number] Modifier: [id number] <+> 1 Time In 2 <+> Time [...] [facility] IntraOp Case Times Audit 10/11/18 09:33:44 Fishing Tool Supervisor: [id number] Modifier: [id number] <+> 1 Out Room Time <+> 1 Stop Time 10/11/18 09:33:20 Fishing Tool Supervisor: [id number] Modifier: [id number] <+> 1 Stop Time 10/11/18 08:13:56 Fishing Tool Supervisor: [id number] Modifier: [id number] <+> 1 Start Time [facility] IntraOp Cautery [...] 08:35:57 [facility] IntraOp Cautery Audit 10/11/18 08:35:57 Fishing Tool Supervisor: [id number] Modifier: [id number] 1 <*> Grounding Pad Site Right Lower [...] [facility] IntraOp Counts Final Audit 10/11/18 09:21:17 Fishing Tool Supervisor: [id number] Modifier: [id number] 1 <*> Procedure Lumbar Microdiscectomy 1 <+> [...] Rn-Surgery 10/11/18 08:26:46 S[facility] IntraOp General Case Security Checker 1 Case Information OR OR 01 SJE [...] Avitene 1Gm powder - Marcaine 0.25% 30ml [id number] vial - [id number] Combo Med List Time Administered Route of [...] Intra Op Sign Out Audit 10/11/18 09:39:50 Fishing Tool Supervisor: [id number] Modifier: [id number] <+> 1 RN Sign Out Signature Date/Time [...] [facility] IntraOp Surgical Procedures Audit 10/11/18 09:33:24 Fishing Tool Supervisor: [id number] Modifier: [id number] 1 <*> Procedure Lumbar Microdiscectomy 1 <+> Stop 10/11/18 09:21:35 Fishing Tool Supervisor: [id number] Modifier: [id number] 1 <*> Procedure Lumbar Microdiscectomy 1 <+> Specialty 10/11/18 09:04:26 Fishing Tool Supervisor: [id number] Modifier: [id number] <+> 1 Primary Procedure <+> 1 Primary Surgeon <+> 1 Start <+> 1 Wound Class <+> 1 Anesthesia Type <+> 1 Additional Procedure Description [facility] IntraOp Temp Regulation Devices Entry 1 Temp Regulation Temperature Forced Air Warming Regulation Device device Temperature Upper body Regulation Site Temperature Device 43 Setting Temperature CARLTON HARKINS V WET MACHINE OPERATOR Regulation Device Applied by Last Modified [...] S[facility] IntraOp Time Out Audit 10/11/18 08:33:51 Fishing Tool Supervisor: [id number] Modifier: [id number] 1 <+> Beta Thalia Administered 1 <+> [...] Rn-Surgery 10/11/18 09:39 Electronically signed by Hanane [facility] Conversion Cryptographic Center Specialist Cerner at 01/06/2023 4:42 PM CDT documented in this encounter Plan of Treatment Not on file documented as of this encounter Visit Diagnoses Not on filedocumented in this encounter
--- OUTSIDE RECORDS SUMMARY | 2025-04-18 14:15 | XMS_ITS | Encounter Summary ---
Author Organization [facility] Address [address] [place] [address] Care Team Providers Care Brace Maker Name Role Phone Provider, No Known Primary Care Provider [phone] Encounter Details Date Type Department Care Team [...] Description 04/30/2025 3:30 PM EDT Office Visit [facility] MATERNAL MEDICINE [address] [place] [address] 04/30/2025 3:30 PM EDT Appointment [facility] [address] [place] [address] documented as of this encounter Visit Diagnoses Not on filedocumented in this encounter Care Teams Brace Maker Relationship Specialty Start Date End Date Provider, [place] [address] PCP - General 4/18/24 documented as of this encounter
--- OUTSIDE RECORDS SUMMARY | 2025-04-18 14:15 | XMS_ITS | Encounter Summary ---
Author Organization [employer] ([place], [place], [place], [place]) Address [address] [place] [address] Care Team Providers Care Saddle Tree Stitcher Name Role Phone Unavailable Primary Care Provider Unavailabl e Encounter Details Date Type Department Care Team (Late st Contact Info) Description 10/11/2018 Transcribed Document [facility] Family Medicine [facility] [address] ProviderChula MD [address] [place] [address] Social History Tobacco Use Types [...] - Historical ProviderMD - 10/11/2018 7:31 AM CASE MONITOR Event Note Entered On: 10/11/2018 7:33 EST [...]
--- OUTSIDE RECORDS SUMMARY | 2025-04-18 14:15 | XMS_ITS | Encounter Summary ---
Author Organization [employer] ([place], [place], [place], [place]) Address [address] [place] [address] Care Team Providers Care Educational Therapy Teacher Name Role Phone Unavailable Primary Care Provider Unavailabl e Encounter Details Date Type Department Care Team (Late st Contact Info) Description 10/11/2018 Transcribed Document [facility] [place] [facility] [place] [address] ProviderChula MD [address] [place] [address] Social History Tobacco Use Types [...] - Chula ProviderMD - 10/11/2018 9:28 AM ACID POLYMERIZATION OPERATOR DATE OF PROCEDURE: 10/11/2018 ORTHOPEDIC OPERATIVE NOTE PREOPERATIVE DIAGNOSIS(ES): Right L5-S1 herniated nucleus pulposus. POSTOPERATIVE DIAGNOSIS(ES): Right L5-S1 herniated nucleus pulposus. PROCEDURE: Right L5-S1 microdiscectomy, CPT code-62021. SURGEON: Chase Recinos MD PYROMETALLURGICAL ENGINEER: Benjy. COMPLICATIONS: None. SPECIMENS: None. IMPLANTS: None. ESTIMATED BLOOD LOSS: 25 mL. DESCRIPTION OF PROCEDURE: Patient was identified in the holding area at [facility], transferred to the operative room under the [...]
--- OUTSIDE RECORDS SUMMARY | 2025-04-18 14:15 | XMS_ITS | Encounter Summary ---
Author Organization [facility] ([place], [place], [place], [place]) Address [address] [place] [address] Care Team Providers Care Sushi Chef Name Role Phone Unavailable Primary Care Provider Unavailabl e Encounter Details Date Type Department Care Team (Late st Contact Info) Description 10/11/2018 Transcribed Document [facility] [place] Medicine [facility] [place] [address] ProviderChula MD [address] [place] [address] Social History Tobacco Use Types [...] - Chula ProviderMD - 10/11/2018 8:13 AM CASE THERAPIST E Main OR PACU Summary Primary Physician: JUANY PRICE MD Finalized Date/Time: 10/11/18 11:43:57 Pt. Name: SHIVAM BERNARD D.O.B./Sex: 1985 Female Med Rec #: [id number] Physician: JUANY PRICE MD Financial #: [id number] Pt. Type: O Room/Bed: [facility] Admit/Disch: 10/11/18 04:54:00 - Institution[place] [facility] [place] PACU Case Times Entry 1 [...] RN 10/11/18 11:43 Electronically signed by Hanane [facility] Conversion Computer Terminal Operator Cerner at 01/06/2023 4:48 PM CDT documented in this encounter Plan of Treatment Not on file documented as of this encounter Visit Diagnoses Not on filedocumented in this encounter
--- OUTSIDE RECORDS SUMMARY | 2025-04-18 14:15 | XMS_ITS | Encounter Summary ---
Author Organization [employer] ([place], [place], [place], [place]) Address [address] [place] [address] Care Team Providers Care Bb Shot Packer Name Role Phone Unavailable Primary Care Provider Unavailabl e Encounter Details Date Type Department Care Team (Late st Contact Info) Description 10/11/2018 Transcribed Document [facility] Family Medicine [facility] [place] [address] ProviderChula MD [address] [place] [address] Social History Tobacco Use [...] - Chula ProviderMD - 10/11/2018 8:13 AM COMMUNITY ARTS CENTRE MANAGER [place] Main OR PreOp Summary Primary Physician: JUANY PRICE MD Finalized Date/Time: 10/11/18 10:17:21 Pt. Name: SHIVAM BERNARD D.O.B./Sex: 1985 Female Med Rec #: [id number] Physician: JUANY PRICE MD Financial #: [id number] Pt. Type: O Room/Bed: [facility] Admit/Disch: 10/11/18 04:54:00 - [place] [facility] [place] Case Times Entry 1 In Preop 10/11/18 05:30:00 Ready for Holding n/a Room Patient Ready for 10/11/18 06:47:00 Surgery Patient Out of Preop 10/11/18 07:35:00 Patient Out of n/a Holding Room Last Modified By: CYNDI LEONARD 10/11/18 10:17:20 SJE PreOp Case Times Audit 10/11/18 10:17:20 Clinical Reviewer: MANDOINMARCK Modifier: [email or web address] <+> 1 Patient Out of Preop 10/11/18 06:47:33 Clinical Reviewer: CRAINMA Modifier: CRAINMA <+> 1 Patient Ready for Surgery Finalized By: CYNDI LEONARD Document Signatures Signed By: CYNDI LEONARD 10/11/18 10:17 documented in this encounter Plan of Treatment Not on file documented as of this encounter Visit Diagnoses Not on filedocumented in this encounter
--- OUTSIDE RECORDS SUMMARY | 2025-04-18 14:15 | XMS_ITS | Encounter Summary ---
Author Organization [employer] ([place], [place], [place], [place]) Address [address] [place] [address] Care Team Providers Care Clinical Documentation Nurse Name Role Phone Unavailable Primary Care Provider Unavailabl e Encounter Details Date Type Department Care Team (Late st Contact Info) Description 10/11/2018 Transcribed Document [facility] [place] Family [facility] [place] [address] ProviderChula MD [address] [place] [id number] Social History Tobacco Use Types Packs/Day Years [...] - Historical ProviderMD - 10/11/2018 7:35 AM INSULATION WORKER FURNACE INSTALLER Event Note Entered On: 10/11/2018 7:37 [...]
--- OUTSIDE RECORDS SUMMARY | 2025-04-18 14:15 | XMS_ITS | Encounter Summary ---
Author Organization [employer] ([place], [place], [place], [place]) Address [address] [place] [address] Care Team Providers Care Credit Risk Management Director Name Role Phone Unavailable Primary Care Provider Unavailabl e Encounter Details Date Type Department Care Team (Late st Contact Info) Description 10/11/2018 Transcribed Document [facility] [place] Medicine [facility] [place] [address] ProviderChula MD [address] [place] [address] Social History Tobacco Use Types Packs/Day Years Used Date Smoking Tobacco: Never Assessed Comments Unknown Sex and Gender Information Value Date Recorded Sex Assigned at Female 03/15/2022 8:26 PM CDT Legal Sex Female 8:26 PM CDT Gender Identity Female 03/15/2022 8:26 PM CDT Sexual Orientation Not on file documented as of this encounter Miscellaneous Notes * Evelia Conversion Note - Historical ProviderMD - 10/11/2018 6:12 AM SENIOR SECURITY ENGINEER Pediatric Growth Entered On: 10/11/2018 6:12 EST Performed On: 10/11/2018 6:12 EST by Michelle Le 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 Height, Feet : 5 ft(Converted to: 152 cm, 60 Inch) Height, Inches : 4 Inch(Converted to: 0 ft 4 Inch, 10.16 cm) Clinical Height : 162.56 cm Weight Source : Standing scale Weight Entry Format : [place] Clinical Dosing Weight : 87.73 kg Weight, Pounds : 193 lb Body Surface Area (BSA) : 1.93 m2 Body Mass Index : 33.2 kg/m2 (HI) [place] Body Weight : 54 kg Michelle Le Patient Aeronautical Products Sales Engineer - 10/11/2018 6:12 EST Electronically signed by Hanane [facility] Conversion Developer Relations Manager Cerner at 01/06/2023 5:04 PM CDT documented in this encounter Plan of Treatment Not on file documented as of this encounter Visit Diagnoses Not on filedocumented in this encounter"
--- OUTSIDE RECORDS SUMMARY | 2025-04-18 14:15 | XMS_ITS | Encounter Summary ---
Author Organization [employer] ([place], [place], [place], [place]) Address [address] [place] [address] Care Team Providers Care Geriatric Case Manager Name Role Phone Unavailable Primary Care Provider Unavailabl e Encounter Details Date Type Department Care Team (Late st Contact Info) Description 09/27/2018 Transcribed Document [facility] [facility] [place] [address] ProviderChula MD [address] [place] [address] Social History Tobacco Use Types [...] - Chula ProviderMD - 09/27/2018 10:30 AM CAPACITOR ASSEMBLER Patient: SHIVAM BERNARD Age: 33 Years Sex: [...]
--- OUTSIDE RECORDS SUMMARY | 2025-04-18 14:15 | XMS_ITS | Encounter Summary ---
Author Organization [employer] ([place], [place], [place], [place]) Address [address] [place] [address] Care Team Providers Care Administrative Nursing Supervisor Name Role Phone Unavailable Primary Care Provider Unavailabl e Encounter Details Date Type Department Care Team (Late st Contact Info) Description 10/11/2018 Transcribed Document [facility] [place] [facility] [place] [place] [address] ProviderChula MD [address] [place] [address] Social History Tobacco Use Types [...] - Historical ProviderMD - 10/11/2018 6:33 AM DOOR ASSEMBLER Pre Procedure Adult Entered On: 10/11/2018 6:47 EST Performed On: 10/11/2018 6:33 EST by Naa Alonso Nurse - denise Height and Weight, Clinical Dosing Height Source : Stated Height Entry Format : [place] Height, Feet : 5 ft(Converted to: 152 cm, 60 Inch) Height, Inches : 4 Inch(Converted to: 0 ft 4 Inch, 10.16 cm) Clinical Height : 162.56 cm Weight Source : Standing scale Weight Entry Format : [place] Clinical Dosing Weight : 87.73 kg Weight, Pounds : 193 lb Body Surface Area (BSA) : 1.93 m2 Body Mass Index : 33.2 kg/m2 (HI) [place] Body Weight : 54 kg Naa Alonso [...] Obtained From : Patient Primary Language : [place] Preferred Communication Mode : Verbal Communication Barrier [...] Scale Risk Level : 0-24 Low Risk Dragoon Fall Interventions : Adequate lighting, Call device [...]
--- OUTSIDE RECORDS SUMMARY | 2025-04-18 14:15 | XMS_ITS | Clinical Summary ---
Author Organization [facility] Address [address] [place] [address] Care Team Providers Care Shipping And Receiving Operator Name Role Phone Provider, No Known Primary Care Provider [phone] Allergies No known active allergies Medications amLODIPine [...] given her abnormal NIPT this could be physician representative of that testing. As of note [...] that CMV testing was performed with primary ECG TECHNICIAN and she said that the IgM was positive and that the antibody was high though we do not have records of this. This could be indicative of IgM with high avidity which could be physician representative of new infection though patient states [...] cysts. If the continues to term, the infant most often dies within the first days [...] Description 04/08/2025 2:45 PM EDT Office Visit [facility] [address] [phone] Jessica Alejandra MD Chronic hypertension affecting (Primary Dx); Antepartum multigravida of advanced maternal age; Abnormal genetic test during ; Poor growth affecting management of mother in third trimester, single or unspecified fetus 04/08/2025 2:33 PM EDT - 04/08/2025 11:59 PM EDT Hospital Encounter [facility] [address] [place] [phone] Dominick Bentley MD Abnormal genetic test during ; Chronic hypertension affecting Discharge Disposition: Home or Self Care 04/08/2025 Travel 03/25/2025 3:00 PM EDT Office Visit [facility] [address] [phone] Dominick Bentley MD Poor growth affecting management of mother in third trimester, single or unspecified fetus (Primary Dx); Chronic hypertension affecting ; Antepartum multigravida of advanced maternal age; Abnormal genetic test during 03/25/2025 3:00 PM EDT - 03/25/2025 11:59 PM EDT Hospital Encounter [facility] [address] [place] [phone] Wilber Bender, Discharge Disposition: Home or Self Care 03/25/2025 Travel 02/25/2025 2:15 PM EDT Office Visit [facility] [address] [facility] [address] [place] [phone] Jessica Alejandra MD Antepartum multigravida of advanced maternal age (Primary Dx); Chronic hypertension affecting 02/25/2025 2:00 PM EDT - 02/25/2025 11:59 PM EDT Hospital Encounter [facility] [address] [place] [address] Wilber Bender, Discharge Disposition: Home or Self Care 02/25/2025 Travel 01/27/2025 3:00 PM EDT Office Visit [facility] [address] [phone] Lois Agarwal MD Abnormal genetic test during (Primary Dx); Chronic hypertension affecting ; History of recurrent miscarriages; H/O delivery, currently ; Antepartum multigravida of advanced maternal age; 22 weeks gestation of 01/27/2025 2:29 PM EDT - 01/27/2025 11:59 PM EDT Hospital Encounter [facility] [address] [place] [address] Wilber Bender, Discharge Disposition: Home or Self [...] [facility] [address] [place] [address] 04/30/2025 3:30 PM EDT Appointment [facility] [address] [place] [address] Health Maintenance Due Date Last [...] Priority Date/Time Associated Diagnosis Comments [facility] Routine 04/08/2025 3:27 PM EDT Abnormal genetic test during Chronic hypertension affecting [facility] Routine 03/25/2025 3:56 PM EDT Abnormal genetic test during Chronic hypertension affecting [facility] Routine 02/25/2025 2:41 PM EDT Abnormal genetic test during Chronic hypertension affecting [facility] Routine 01/27/2025 3:12 PM EDT Abnormal genetic test during Chronic hypertension affecting HEMOGLOBIN A1C Routine 01/08/2024 8:54 AM EDT Blighted ovum from Last 3 Months or Most Recently Relevant to Health Maintenance Results * [facility] (04/08/2025 3:27 PM EDT) Only the most recent of4 resultswithin the time period is included. Anatomical Region Laterality Modality Ultrasound 04/08/2025 3:10 PM EDT Narrative 04/09/2025 12:30 PM EDT PAT NAME: SHIVAM BERNARD MED REC#: [id number] DA: [id number] PAT GEND: F PAT TYPE: O EXAM ALIREZA: [id number] REF PHYS WILBER BENDER Comparison Studies The [...] EFW (oz) 14 oz EFW by: Hadlock ([id number]-[id number]-FL) Extended Cav. septi pel. tr 4.9 mm Mechanical Maintenance Engineer 5.2 mm CM 8.0 mm 70% [...] in 3 weeks scheduled Coding ======= Description: 82050-13 Follow Up Ultrasound Description: 14220-26 BPP without NST Description: 75337-27 Doppler Umbilical Artery Mental Health Case Manager: Josephine Gonzales RDMS Physician: Jessica Alejandra MD, FACOG Electronically signed by: Jessica Alejandra MD, FACOG at: 12:30 Procedure Note Jessica Alejandra MD - 04/09/2025 PAT NAME: SHIVAM BERNARD MED REC#: [id number] DA: [id number] PAT GEND: F PAT TYPE: O EXAM ALIREZA: [id number] REF PHYS WILBER BENDER Comparison Studies The findings of this study are compared to the prior ultrasound studydated 03/25/25 Patient Status Outpatient Indication ======== AMA. CHTN. Follow up IUGR. Abnormal NIPT (high risk triploidy, T13, T18.)Hx preeclampsia & PTD (32 & 35 wk). Morbid obesity BMI 40. Maternal Assessment Exvjzt228 cm Height (ft)5 ft Height (in)3 in Nohhfh566 kg Weight (lb)227 lb BMI40.22 kg/m Method ======= Transabdominal ultrasound examination. View: Adequate view ========= Black . Number of fetuses: 1 Dating ====== Method of dating:based on stated ARIA GA by prior [id number] w + 6 d ARIA by prior assessment:05/28/2025 Ultrasound examination on:04/08/2025 GA by U/S based upon:AC, BPD, Femur, HC GA by U/S31 w + 4 d ARIA by U/S:06/06/2025 Previous dating:based on stated ARIA, selected on 02/25/2025 Agreed ARIA of previous datin05/28/2025 Assigned:based on stated ARIA, selected on 04/08/2025 Assigned GA32 w + 6 d Assigned ARIA:05/28/2025 [id number] d Biometry Standard BPD80.2 mm 32w 1d 24% Hadlock OFD98.4 mm 31w 6d 23% Bella HC287.0 mm 31w 4d 2% Hadlock Cerebellum tr41.5 mm 32w 6d 31% Hill AC273.7 mm 31w 3d 14% Hadlock Femur59.6 mm 31w 0d 5% Hadlock Srdfxqb62.1 mm 30w 6d 13% Bella HC / AC1.05 EFW1,758 g 31w 0d 9% Hadlock EFW (lb)3 lb EFW (oz)14 oz EFW by:Hadlock (AUW-EC-FJ-FL) Extended Cav. septi pel. tr4.9 mm Vp5.2 mm CM8.0 mm 70% Nicolaides Head / Face / Neck Cephalic index0.82 66% Nicolaides Extremities / Bony Struc FL / BPD0.74 FL / HC0.21 FL / AC0.22 Other Structures BEV212 bpm General Evaluation Cardiac activity present. FHR [...] growth in 3 weeks scheduled Coding ======= Description:44477-48 Follow Up Ultrasound Description:69671-67 BPP without NST Description:68988-26 Doppler Umbilical Artery Mental Health Case Manager: Josephine Gonzales RDDC Physician: Jessica Alejandra MD, FACOG Electronically signed [...] - 01/09/2024 8:16 AM EDT Performed at: [address] [place] [id number] Automobile Spring Repairer: Kevin Staley MD, Phone: [phone] Patient Fasting: N us Caleb Alves MD LAB BLOOD ORDERABLES Fin al Result Performing Organization Address City/State/[facility] Co de Phone Number [facility] [address] [place] [address], [facility] [address] [place] [address], from Last 3 Months or Most Recently Relevant to Health Maintenance [facility] Care Teams Shipping And Receiving Operator Relationship Specialty Start Date End Date Provider, [place] [address] PCP - General 01/04/24
--- OUTSIDE RECORDS SUMMARY | 2025-04-18 14:16 | XMS_ITS | Encounter Summary ---
Author Organization [facility] Address [address] [place] [address] Care Team Providers Care Entry Level Sales Associate Name Role Phone Provider, No Known Primary Care Provider [phone] Encounter Details Date Type Department Care Team [...] CENTER [facility] [address] [place] [address] 04/30/2025 3:30 PM EDT Appointment [facility] [address] [place] [address] documented as of this encounter Visit Diagnoses Not on filedocumented in this encounter Care Teams Entry Level Sales Associate Relationship Specialty Start Date End Date Provider, [place] [address] PCP - General 4/18/24 documented as of this encounter
--- OUTSIDE RECORDS SUMMARY | 2025-04-18 14:16 | XMS_ITS | Clinical Summary ---
Author Organization [facility] Address [address] [place] [address] Care Team Providers Care Rn Radiation Name Role Phone Rosemary Fuller Primary Care [...] Tdap) 09/12/2023 09/12/2013 Colonoscopy 12/29/2023 12/29/2021, 11/13/2019 [id number] Vaccine (1 - season) 2024 UKY-Depression Screening [...] RN Endo Nurse Roberto Carlos Davis CRNA PITCH WORKER, No role selected Kell Carrera RN Endo Nurse Mady Alvarez Endo Nurse James Morales MD Anesthesiologist MD Daniel Dinero MD Proceduralist Cabin Crew Unknown Endo Nurse 1 Endo Nurse Preprocedure [...] of bowel preparation was evaluated using the [place] Bowel Preparation Scale with scores of: right [...] were documented in this log. Findings Healthy cxuo-uq-xprh ileocolonic anastomosis with no bleeding The rectum [...] <6.0% Children and Adolescents <7.5% . Source: [place] [employer]. Standards of medical care in diabetes, 2017. Diabetes Care.2017:40 (suppl 1):S1-S135. . HbA1c assay performed by an ion-exchange chromatography method that is certified traceable to the DCCT. 01/15/2019 10:5 6 AM EDT 01/15/2019 12:16 PM EDT us Faith Ruth MD LAB BLOOD ORDERABLES Final Resu lt SUNQUEST from Last 3 Months or Most Recently Relevant to Health Maintenance Insurance [facility] MEDICAID Care Teams Rn Radiation Relationship Specialty Start Date End Date Rosemary Fuller PA [address] [place] [address] [place] [address] PCP - General 01/29/21
--- OUTSIDE RECORDS SUMMARY | 2025-04-18 14:16 | XMS_ITS | Clinical Summary ---
Author Organization [employer] ([place], [place], [place], [place]) Address [address] [place] [address] Care Team Providers Care Animal Bounty Hunter Name Role Phone Unavailable Primary Care Provider [...]
--- OUTSIDE RECORDS SUMMARY | 2025-04-18 14:16 | XMS_ITS | Referral Summary ---
Author Organization [employer] ([place], [place], [place], [place]) Address [address] [place] [address] Care Team Providers Care Assistant Attorney General Name Role Phone Unavailable Primary Care Provider [...]
[2025-04-18 14:29] VITALS: BMI 39.1
[2025-04-18 15:07] LABS: Microscopic, Urine URINE MICROSCOPIC (MICROSCOPIC)
[2025-04-18 15:08] LABS: Hematocrit 29.4 % (37.0-47.0); Hemoglobin 9.7 g/dL (12.2-16.2); Immature Granulocytes % 0.4 %; Mean Corpuscular HGB Conc 33.0 g/dL (31.8-35.4); Mean Corpuscular Hemoglobin 26.4 pg (27.0-31.2); Mean Corpuscular Volume 80.1 fl (81-99); Nucleated Red Blood Cells % 0 %; Platelet Count 340 K/mm3 (142-424); Red Blood Count 3.67 M/mm3 (4.20-5.40); Red Cell Distribution Width-SD 43.0 fL; White Blood Count 11.2 K/mm3 (4.8-10.8)
[2025-04-18 15:15] LABS: Bilirubin,Urine Negative (Negative); Color,Urine YELLOW (Yellow); Glucose,Urine (UA) Negative (Negative); Ketones,Urine TRACE (Negative); Leukocyte Esterase,Urine TRACE (Negative); PH,Urine 6.0 (5.0-8.5); Protein,Urine Negative (Negative); Specific Gravity, Urine 1.025 (1.005-1.030); Urobilinogen,Urine 1.0 EU/dl (0.2)
[2025-04-18 15:20] LABS: Bacteria,Urine 1+ /lpf; Mucus,Urine 1+ /lpf
[2025-04-18 15:23] LABS: Alanine Aminotransferase 19 U/L (12-78); Albumin Level 3.5 g/dl (3.5-5.0); Albumin/Globulin Ratio 1.2 (1.1-1.8); Alkaline Phosphatase 186 U/L (38-126); Anion Gap 8.9 mEq/L (5-15); Aspartate Amino Transferase 30 U/L (14-36); Bilirubin,Total 0.2 mg/dl (0.2-1.3); Blood Urea Nitrogen 7 mg/dl (7-17); Calcium 8.7 mg/dl (8.4-10.2); Carbon Dioxide 23 mmol/L (22.0-30.0); Chloride 107 mmol/L (98-107); Creatinine Clearance Estimated 206 mL/min (50-200); Creatinine,Serum 0.60 mg/dl (0.52-1.04); Estimated Glomerular Filt Rate 111 ml/min (>60); GFR (African American) 135 ML/MIN (>60); Globulin 3.0 g/dL (1.3-3.2); Glucose 97 mg/dl (74-100); Potassium 3.9 mmoL/L (3.5-5.1); Sodium 135 mmol/L (136-145); Total Protein,Serum 6.5 g/dl (6.3-8.2); Uric Acid 3.9 mg/dl (2.5-6.2)
[2025-04-18 15:29] LABS: Activated Partial Thrombo Time 23.4 seconds (22.8-30.6); Fibrinogen 457 mg/dL (229.9-363.5); INR 0.90 (0.9-1.1); Prothrombin Time 10.1 seconds (10.1-12.5)
== END 2025-04-18 16:10 | disposition home or self-care (01) ==
LOC: OBOUT 14:13 → OB 14:14
PROVIDERS: PCP Nurse Practitioner; Visit Provider Nurse Practitioner Obstetrics & Gynecology
DX: O10.913 Unspecified pre-existing hypertension complicating pregnancy, third trimester (principal); Z3A.33 33 weeks gestation of pregnancy
CPT/HCPCS: 36415; 59025; 80053; 81001; 82570; 84156; 84550; 85025; 85384; 85610; 85730

== ENCOUNTER 2025-04-22 15:35 | Outpatient (CLI) | payer OTHER, SELFPAY ==
--- OUTSIDE RECORDS SUMMARY | 2025-02-25 14:00 | XMS_ITS | Encounter Summary ---
Author Organization [facility] Address [address] [place] [address] Care Team Providers Care Hot Stick Man Name Role Phone Provider, No Known Primary Care Provider [phone] Reason for Visit * Diagnostic Imaging (Routine) - Closed Specialty Diagnoses / Procedures Referred By Carolyne diaz Referred To Contact Radiology Diagnoses Abnormal genetic test during Chronic hypertension affecting Procedures [facility] Bentley, Dominick Silva MD [address] [place] [address] Phone: tel: fax: Referral ID Status Reason Start Date Expiration Date Visits Re quested Visits Authorized [id number] Closed 12/30/2024 03/31/2026 4 4 Encounter Details Date Type Department Care Team (Latest Contact Info) Description 02/25/2025 2:00 PM EDT - 02/25/2025 11:59 PM EDT Hospital Encounter [facility] PER DIAG CTR [address] [place] [address] Wilber Bender, [address] [facility] [address] [id number] Discharge Disposition: Home or Self Care Social [...] Description 04/30/2025 3:30 PM EDT Office Visit [facility] MAT[facility] [address] [place] [address] 04/30/2025 3:30 PM EDT Appointment [facility] US PER DIAG CTR [address] [place] [id number] documented as of this encounter Procedures Procedure Name Priority Date/Time Associated Diagnosis Comments US [facility] Routine 02/25/2025 2:41 PM EDT Abnormal genetic test during Chronic hypertension affecting documented in this encounter Results * [facility] (02/25/2025 2:41 PM EDT) Anatomical Region Laterality Modality Ultrasound 02/25/2025 2:28 PM EDT Narrative 02/26/2025 10:26 AM EDT PAT NAME: SHIVAM BERNARD [facility] REC#: [id number] DA: [id number] PAT GEND: F PAT TYPE: O EXAM ALIREZA: [id number] REF PHYS WILBER BENDER Comparison Studies The [...] EFW (oz) 14 oz EFW by: Hadlock ([id number]-FL) Extended Cav. septi pel. tr 3.8 mm Motor Brakeman 5.2 mm Head / Face / Neck [...] IVC: Appears Normal 3-vessel view: Appears normal 5-kgicgz-oyralmv view: suboptimal Cardiac axis: Normal Stomach: Normal Kidneys: Normal Bladder: Normal Gender: female Wants to know gender: yes Echocardiogram 2D Echo (Qualitatively) 4-chamber view: Appears normal LVOT view: Appears normal RVOT view: Appears normal 3-vessel view: Appears normal 5-tvpqmr-bzisafj view: suboptimal Aortic arch view: Appears normal [...] mm RV length diast 9.90 mm <1% Sanchez RV width diast 10.04 mm 20% Sanchez [...] Follow up 4 weeks Coding ======= Description: 63119-23 Follow Up Ultrasound Description: 63571-12 Echo 2D, heart - initial Description: 33694-82 Doppler echo color flow Description: 81958-08 Doppler Umbilical Artery Base Loader: Josephine Gonzales RDMS Physician: Jessica Alejandra MD, FACOG Electronically signed by: Jessica Alejandra MD, FACOG at: 10:26 Procedure Note Jessica Alejandra MD - 02/26/2025 PAT NAME: SHIVAM BERNARD MED REC#: [id number] DA: [id number] PAT GEND: F PAT TYPE: O EXAM ALIREZA: [id number] REF PHYS WILBER BENDER Comparison Studies The findings of this study are compared to the prior ultrasound studydated 01/27/25 Patient Status Outpatient Indication ======== Abnormal NIPT (high risk triploidy, T13, T18.) AMA. CHTN. Hx preeclampsia& PTD (32 & 35 wk). Obesity BMI 39. Maternal Assessment Hdkytn857 cm Height (ft)5 ft Height (in)3 in Qzcchj368 kg Weight (lb)225 lb BMI39.87 kg/m Method ======= Transabdominal ultrasound examination. View: Suboptimal view: limited byfetal position and maternal habitus ========= Black . Number of fetuses: 1 Dating ====== Method of dating:based on stated ARIA GA by prior [id number] w + 6 d ARIA by prior assessment:05/28/2025 Ultrasound examination on:02/25/2025 GA by U/S based upon:AC, BPD, Femur, HC GA by U/S26 w + 1 d ARIA by U/S:06/02/2025 Previous dating:based on stated ARIA, selected on 12/30/2024 Agreed ARIA of previous datin05/28/2025 Assigned:based on stated ARIA, selected on 02/25/2025 Assigned GA26 w + 6 d Assigned ARIA:05/28/2025 [id number] d Biometry Standard BPD66.5 mm 26w 6d 37% Hadlock OFD82.7 mm 26w 6d 51% Bella HC242.5 mm 26w 2d 11% Hadlock AC213.9 mm 25w 6d 16% Hadlock Femur46.4 mm 25w 3d 6% Hadlock Gjbygjt71.5 mm 25w 0d 4% Bella HC / AC1.13 SVC475 g 25w 4d 10% Hadlock EFW (lb)1 lb EFW (oz)14 oz EFW by:Hadlock ([id number]-[id number]-FL) Extended Cav. septi pel. tr3.8 mm Vp5.2 [...] / HC0.19 FL / AC0.22 Other Structures GZU770 bpm General Evaluation Cardiac activity present. FHR [...] SVC:Appears Normal IVC:Appears Normal 3-vessel view:Appears normal 7-ysmgjb-rhzbwva view:suboptimal Cardiac axis:Normal Stomach:Normal Kidneys:Normal Bladder:Normal Gender:female Wants to know gender:yes Echocardiogram 2D Echo (Qualitatively) 4-chamber view:Appears normal LVOT view:Appears normal RVOT view:Appears normal 3-vessel view:Appears normal 9-wwzqox-czwoiek view:suboptimal Aortic arch view:Appears normal Ductal arch [...] Maternal Structures Uterus / Cervix Approach:Transabdominal Cervical .3 mm Impression Today's exam reveals a SIUP in cephalic presentation with biometryconsistent with dates. Limited anatomic survey appears normalincluding echocardiogram views. The BHAVYA and UA dopplers are normal. Recommendation Follow up 4 weeks Coding ======= Description:27208-66 Follow Up Ultrasound Description:25234-23 Echo 2D, heart - initial Description:41602-11 Doppler echo color flow Description:60850-23 Doppler Umbilical Artery Base Loader: Josephine Gonzales RDMS Physician: Jessica Alejandra MD, FACOG Electronically signed by: Jessica Alejandra MD, FACOG at: 1110:26 us Dominick Bent[place] MD IMG US ORDERABLES Final Result documented in this encounter Visit Diagnoses Not on filedocumented in this encounter Care Teams Hot Stick Man Relationship Specialty Start Date End Date Provider, [place] [address] PCP - General 01/04/24 documented as of this encounter
--- OUTSIDE RECORDS SUMMARY | 2025-02-25 14:15 | XMS_ITS | Encounter Summary ---
[facility] Address [address] [place] [address] Care Team Providers Care Electrical Appliance Servicer Name Role Phone Provider, No Known Primary Care Provider [phone] Reason for Visit * Reason Comments AMA; CHTN; hx preeclampsia; hx PTD; abno rmal NIPT Encounter Details Date Type Department Care Team (Late st Contact Info) Description 02/25/2025 2:15 PM EDT Office Visit [facility] MEDICINE [address] [address] Jessica Alejandra MD 1700 [facility] [address] [place] [address] [phone] Antepartum multigravida of advanced maternal age (Primary [...] under imaging tab of patient chart in [facility] (Viewpoint report). Jessica Alejandra MD documented in this encounter Plan of Treatment Upcoming Encounters Date Type Department Care Team (Late st Contact Info) Description 04/30/2025 3:30 PM EDT Office Visit [facility] MEDIC[facility] 1700 [facility] [address] [place] [address] 04/30/2025 3:30 PM EDT Appointment [facility] [address] [place] [address] documented as of this encounter Visit Diagnoses Diagnosis Antepartum multigravida of advanced maternal age- Primary Chronic hypertension affecting documented in this encounter Care Teams Electrical Appliance Servicer Relationship Specialty Start Date End Date Provider, [place] [address] PCP - General 01/04/24 documented as of this encounter
--- OUTSIDE RECORDS SUMMARY | 2025-03-25 15:00 | XMS_ITS | Encounter Summary ---
Author Organization [facility] Address [address] [place] [address] Care Team Providers Care Military Technology Specialist Name Role Phone Provider, No Known Primary Care Provider [phone] Reason for Visit * Diagnostic Imaging (Routine) - Closed Specialty Diagnoses / Procedures Referred By Carolyne diaz Referred To Contact Radiology Diagnoses Abnormal genetic test during Chronic hypertension affecting Procedures [facility] Bentley, Dominick Silva MD [address] [place] [address] Phone: tel: fax: Referral ID Status Reason Start Date Expiration Date Visits Re quested Visits Authorized [id number] Closed 12/30/2024 03/31/2026 4 4 Encounter Details Date Type Department Care Team (Latest Contact Info) Description 03/25/2025 3:00 PM EDT - 03/25/2025 11:59 PM EDT Hospital Encounter [facility] PER DIAG CTR [address] [place] [address] Wilber Bender, [address] [facility] [address] [id number] Discharge Disposition: Home or Self Care Social [...] Take 1 tablet by mouth Daily. 10/19/2023 documented as of this encounter Plan of Treatment Upcoming Encounters Date Type Department Care Team (Late st Contact Info) Description 04/30/2025 3:30 PM EDT Office Visit [facility] [address] [facility] [address] [place] [address] 04/30/2025 3:30 PM EDT Appointment [facility] US PER DIAG CTR [address] [place] [address] documented as of this encounter Procedures Procedure Name Priority Date/Time Associated Diagnosis Comments [facility] Routine 03/25/2025 3:56 PM EDT Abnormal genetic test during Chronic hypertension affecting documented in this encounter Results * [facility] (03/25/2025 3:56 PM EDT) Anatomical Region Laterality Modality Ultrasound 03/25/2025 3:25 PM EDT Narrative 03/25/2025 4:18 PM EDT PAT NAME: SHIVAM BERNARD MED REC#: [id number] DA: [id number] PAT GEND: F PAT TYPE: O EXAM ALIREZA: [id number] REF PHYS WILBER BENDER Comparison Studies The [...] EFW (oz) 13 oz EFW by: Hadlock (CUC-DR-BU-FL) Extended Tibia 45.8 mm 27w 6d 2% Bella Fibula 45.4 mm 28w 1d 15% Bella Foot 57.5 mm 9% Chitty Radius 37.7 mm 26w 2d 14% Bella Ulna 41.3 mm 26w 6d <1% Bella Cav. septi pel. tr 5.5 mm Venetian Blind Worker 3.8 mm CM 4.7 mm 3% Nicolaides [...] (one being BPP/BHAVYA/UA dopplers). Coding ======= Description: 39130-76 Follow Up Ultrasound Description: 94623-71 BPP without NST Description: 37368-30 Doppler Umbilical Artery Continuous Improvement Director: Yoly Choudhary RDMS Physician: Dominick Bentley MD, FACOG Electronically signed by: Dominick Bentley MD, FACOG at: 16:18 Procedure Note Dominick Bentley MD - 03/25/2025 PAT NAME: SHIVAM BERNARD MED REC#: [id number] DA: [id number] PAT GEND: F PAT TYPE: O EXAM ALIREZA: [id number] REF PHYS WILBER BENDER Comparison Studies The findings of this study are compared to the prior ultrasound studydated 02/25/25. Patient Status Outpatient Indication ======== Abnormal NIPT (high risk triploidy, T13, T18.) AMA. CHTN. Hx preeclampsia& PTD (32 & 35 wk). Obesity BMI 39. Maternal Assessment Iadzzq928 cm Height (ft)5 ft Height (in)3 in Wedgnp481 kg Weight (lb)227 lb BMI40.22 kg/m Method ======= Transabdominal ultrasound examination ========= Black . Number of fetuses: 1 Dating ====== GA by prior eyxeqmbnfp41 w + 6 d ARIA by prior [...] GA30 w + 6 d Assigned ARIA:05/28/2025 iwqvnl256 d Biometry Standard BPD74.1 mm 29w 5d 11% Hadlock OFD93.7 mm 30w 2d 33% Bella HC267.1 mm 29w 1d <1% Hadlock Cerebellum tr38.6 mm 31w 3d 48% Hill AC252.3 mm 29w 3d 11% Hadlock Femur51.2 mm 27w 3d <1% Hadlock Bmtsdhd09.3 mm 26w 2d <1% Bella HC / AC1.06 EFW1,278 g 28w 3d 3% Hadlock EFW (lb)2 lb EFW (oz)13 oz EFW by:Hadlock (PQN-LW-AJ-FL) Extended Tibia45.8 mm 27w 6d 2% Bella Fjzkth42.4 mm 28w 1d 15% Bella Foot57.5 mm 9% Chitty Irhtug47.7 mm 26w 2d 14% Bella Ulna41.3 mm 26w 6d <1% Bella Cav. septi pel. tr5.5 mm Vp3.8 mm CM4.7 mm 3% Nicolaides Head / Face / Neck Cephalic index0.79 46% Nicolaides Extremities / Bony Struc FL / BPD0.69 FL / HC0.19 FL / AC0.20 Other Structures IFZ321 bpm General Evaluation Cardiac activity present. FHR [...] office (one being BPP/BHAVYA/UA dopplers). Coding ======= Description:10262-75 Follow Up Ultrasound Description:18384-49 BPP without NST Description:99056-23 Doppler Umbilical Artery Continuous Improvement Director: Yoly Choudhary RDMS Physician: Dominick Bentley MD, FACOG Electronically signed by: Dominick Bentley MD, FACOG at: 16:18 us Dominick Bentley MD IMG US ORDERABLES Final Result documented in this encounter Visit Diagnoses Not on filedocumented in this encounter Care Teams Military Technology Specialist Relationship Specialty Start Date End Date Provider, [place] [address] PCP - General 01/04/24 documented as of this encounter
--- OUTSIDE RECORDS SUMMARY | 2025-03-25 15:00 | XMS_ITS | Encounter Summary ---
[facility] Address [address] [place] [address] Care Team Providers Care Plastic Welder Name Role Phone Provider, No Known Primary Care Provider [phone] Reason for Referral * Diagnostic Imaging (Routine) - Authorized Specialty Diagnoses / Procedures Referred By Contac t Referred To Contact Radiology Diagnoses Chronic hypertension affecting Antepartum multigravida of advanced maternal age Poor growth affecting management of mother in third trimester, single or unspecified fetus Procedures [facility] Dominick Bentley MD [address] [place] [address] Phone: tel: fax: [facility] PER DI[facility] [address] [place] [address] Phone: tel: Referral ID Status Reason Start Date Expiration Date V isits Requested Visits Authorized [id number] Authorized 03/25/2025 06/24/2026 3 3 Reason for Visit * Reason Comments ama, CHTN, ABN NIPT Encounter Details Date Type Department Care Team (Late st Contact Info) Description 03/25/2025 3:00 PM EDT Office Visit [facility] MATERNAL MEDICINE [address] [place] [address] Dominick Bentley MD [address] [facility] [address] [place] [address] Poor growth affecting management of mother in [...] her abnormal NIPT this could be medical claims representative of that testing. As of note [...] that CMV testing was performed with primary [employer] WORK[employer] and she said that the IgM was positive and that the antibody was high though we do not have records of this. This could be indicative of IgM with high avidity which could be medical claims representative of new infection though patient states [...] her abnormal NIPT this could be medical claims representative of that testing. As of note [...] that CMV testing was performed with primary [employer] and she said that the IgM was positive and that the antibody was high though we do not have records of this. This could be indicative of IgM with high avidity which could be medical claims representative of new infection though patient states [...] or sooner if clinically indicated. Orders: - [facility]; Standing 2. Chronic hypertension affecting Assessment & Plan: Patient presents for follow-up growth ultrasound secondary to AMA, chronic hypertension, abnormal NIPT. Blood sugar today 127/80. Orders: - [facility]; Standing 3. Antepartum multigravida of advanced maternal age - [facility]; Standing 4. Abnormal genetic test [...] CVS. Dominick Bentley MD, FACOG Maternal Medicine, [facility] documented in this encounter Plan of Treatment Upcoming Encounters Date Type Department Care Team (Late st Contact Info) Description 04/30/2025 3:30 PM EDT Office Visit [facility] MATERNAL MEDICINE [address] [facility] [address] [place] [address] 04/30/2025 3:30 PM EDT Appointment [facility] PER DIAG [facility] [address] [place] [address] Scheduled Orders Name Type Priority Associated Diagnoses Orde r Schedule [facility] Imaging Routine Chronic hypertension affecting [...] during documented in this encounter Care Teams Plastic Welder Relationship Specialty Start Date End Date Provider, [place] [address] PCP - General 01/04/24 documented as of this encounter
--- OUTSIDE RECORDS SUMMARY | 2025-04-08 14:33 | XMS_ITS | Encounter Summary ---
Author Organization [facility] Address [address] [place] [address] Care Team Providers Care Floor Inspector Name Role Phone Provider, No Known Primary Care Provider [phone] Reason for Referral * Diagnostic Imaging (Routine) - Closed Specialty Diagnoses / Procedures Referred By Carolyne diaz Referred To Contact Radiology Diagnoses Abnormal genetic test during Chronic hypertension affecting Procedures [facility] Dominick Bentley MD [address] [place] [address] Phone: tel: fax: Referral ID Status Reason Start Date Expiration Date Visits Re quested Visits Authorized [id number] Closed 12/30/2024 03/31/2026 4 4 Reason for Visit * Diagnostic Imaging (Routine) - Closed Specialty Diagnoses / Procedures Referred By Carolyne diaz Referred To Contact Radiology Diagnoses Abnormal genetic test during Chronic hypertension affecting Procedures [facility] [place] Dominick Bentley MD [address] [facility] [address] [place] [address] Phone: tel: fax: Referral ID Status Reason Start Date Expiration Date Visits Re quested Visits Authorized [id number] Closed 12/30/2024 03/31/2026 4 4 Encounter Details Date Type Department Care Team (Late st Contact Info) Description 04/08/2025 2:33 PM EDT - 04/08/2025 11:59 PM EDT Hospital Encounter [facility] [address] [place] [address] Dominick Bentley MD [address] [place], [place] [id number] Abnormal genetic test during ; Chronic hypertension affecting Discharge Disposition: Home or Self Care Social History Tobacco Use Types Packs/Day Years Used Date Smoking Tobacco: Never Smokeless Tobacco: Never Alcohol Use Standard Drinks/Week Comments Never 0 (1 standard drink = 0.6 oz pur e alcohol) Estimated Date of Delivery Comme nts Yes 05/28/2025 Date entered ciao or to episode creation Sex and Gender [...] PM EDT Office Visit [facility] [address] [place] [address] 04/30/2025 3:30 PM EDT Appointment [facility] [address] [place] [address] documented as of this encounter Procedures Procedure Name Priority Date/Time Associated Diagnosis Comments [facility] Routine 04/08/2025 3:27 PM EDT Abnormal genetic test during Chronic hypertension affecting documented in this encounter Results * [facility] (04/08/2025 3:27 PM EDT) Anatomical Region Laterality Modality Ultrasound 04/08/2025 3:10 PM EDT Narrative 04/09/2025 12:30 PM EDT PAT NAME: SHIVAM BERNARD MED REC#: [id number] DA: [id number] PAT GEND: F PAT TYPE: O EXAM ALIREZA: [id number] REF PHYS WILBER BHAKTA Comparison Studies The [...] Transabdominal ultrasound examination. View: Adequate view ========= [place]cak . Number of fetuses: 1 Dating ====== [...] EFW (oz) 14 oz EFW by: Hadlock (OMB-GT-VU-FL) Extended Cav. septi pel. tr 4.9 mm Technical Support Director 5.2 mm CM 8.0 mm 70% Nicolaides [...] in 3 weeks scheduled Coding ======= Description: 92660-86 Follow Up Ultrasound Description: 91050-02 BPP without NST Description: 95779-01 Doppler Umbilical Artery Turret Lathe Machinist: Josephine Gonzales RDMS Physician: Jessica Alejandra MD, FACOG Electronically signed by: Jessica Alejandra MD, FACOG at: 12:30 Procedure Note Jessica Alejandra MD - 04/09/2025 PAT NAME: SHIVAM BERNARD MED REC#: [id number] DA: [id number] PAT GEND: F PAT TYPE: O EXAM ALIREZA: [id number] REF PHYS WILBER BHAKTA Comparison Studies The findings of this study are compared to the prior ultrasound studydated 03/25/25 Patient Status Outpatient Indication ======== AMA. CHTN. Follow up IUGR. Abnormal NIPT (high risk triploidy, T13, T18.)Hx preeclampsia & PTD (32 & 35 wk). Morbid obesity BMI 40. Maternal Assessment Otyrvb144 cm Height (ft)5 ft Height (in)3 in Rzcvhz436 kg Weight (lb)227 lb BMI40.22 kg/m Method ======= Transabdominal ultrasound examination. View: Adequate view ========= Black . Number of fetuses: 1 Dating ====== Method of dating:based on stated ARIA GA by prior ddislonjty52 w + 6 d ARIA by prior assessment:05/28/2025 Ultrasound examination on:04/08/2025 GA by U/S based upon:AC, BPD, Femur, HC GA by U/S31 w + 4 d ARIA by U/S:06/06/2025 Previous dating:based on stated ARIA, selected on 02/25/2025 Agreed ARIA of previous datin05/28/2025 Assigned:based on stated ARIA, selected on 04/08/2025 Assigned GA32 w + 6 d Assigned ARIA:05/28/2025 jvfylk278 d Biometry Standard BPD80.2 mm 32w 1d 24% Hadlock OFD98.4 mm 31w 6d 23% Bella HC287.0 mm 31w 4d 2% Hadlock Cerebellum tr41.5 mm 32w 6d 31% Hill AC273.7 mm 31w 3d 14% Hadlock Femur59.6 mm 31w 0d 5% Hadlock Ypumwkg32.1 mm 30w 6d 13% Bella HC / AC1.05 EFW1,758 g 31w 0d 9% Hadlock EFW (lb)3 lb EFW (oz)14 oz EFW by:Hadlock (QYT-QS-TD-FL) Extended Cav. septi pel. tr4.9 mm Vp5.2 mm CM8.0 mm 70% Nicolaides Head / Face / Neck Cephalic index0.82 66% Nicolaides Extremities / Bony Struc FL / BPD0.74 FL / HC0.21 FL / AC0.22 Other Structures LEY178 bpm General Evaluation Cardiac activity present. FHR [...] growth in 3 weeks scheduled Coding ======= Description:57051-81 Follow Up Ultrasound Description:95353-80 BPP without NST Description:81415-97 Doppler Umbilical Artery Turret Lathe Machinist: Josephine Gonzales RDMS Physician: Jessica Alejandra MD, FACOG Electronically signed by: Jessica Alejandra MD, FACOG at: 2312:30 us Dominick Bentley MD [facility] ORDERABLES Final Result documented in this encounter Visit Diagnoses Diagnosis Abnormal genetic test during Chronic hypertension affecting documented in this encounter Care Teams Floor Inspector Relationship Specialty Start Date End Date Provider, [place] [address] PCP - General 01/04/24 documented as of this encounter
--- OUTSIDE RECORDS SUMMARY | 2025-04-08 14:45 | XMS_ITS | Encounter Summary ---
[facility] Address [address] [place] [address] Care Team Providers Care Emergency Preparedness Manager Name Role Phone Provider, No Known Primary Care Provider [phone] Reason for Visit * Reason Comments CHTN, AMA, abn NIPT, MO, hx PreE, IUGR Encounter Details Date Type Department Care Team (Late st Contact Info) Description 04/08/2025 2:45 PM EDT Office Visit [facility]ERNAL MEDICINE [address] [address] Jessica Alejandra MD [address] [id number] Chronic hypertension affecting (Primary Dx); Antepartum multigravida of advanced maternal age; Abnormal genetic test during ; Poor growth affecting management of mother in third trimester, single or unspecified fetus Social History Tobacco Use Types Packs/Day Years [...] Sign Reading Time Taken Comments Blood Pressure 147/84 04/08/2025 2:57 PM EDT 128 /71 Pulse - - Temperature - - Respiratory Rate - - Oxygen Saturation - - Inhaled Oxygen Concentration - - Weight 103 kg (227 lb 6.4 oz) 04/08/2025 2:57 PM EDT Height - - Body Mass Index 40.28 12/30/2024 2:09 PM EDT documented in this encounter Progress Notes * Jessica Alejandra MD - 04/09/2025 12:41 PM EDTAssociated Problem(s): Poor growth affecting management of mother in third trimester Mild IUGR noted today Otherwise reassuring evaluation Recommend twice weekly testing with follow up growth in 3 weeks with MFM * Rhonda Christianson RN - 04/08/2025 2:45 PM EDT Denies vaginal bleeding, leaking fluid. Patient reports occasional irregular contractions. Endorses normal movement. NIPT high risk for triploidy, T13, T18. Next OB follow-up appointment with Dr. Bender on 04/11/2025. * Jessica Alejandra MD - 04/08/2025 2:45 PM EDT Maternal/ Medicine Follow Up Note Name: Kala Beltran : 1985 Referring Provider: Jocelyn Bender DO Chief Complaint CHTN, AMA, abn NIPT, MO, hx PreE, IUGR Subjective History of Present Illness: Kala Beltran is a 39 y.o. 33w0d who presents today for follow up ARIA: Estimated Date of Delivery: 05/28/25 ROS: As noted in HPI. Objective Vital Signs BP 147/84 Wt 103 kg (227 lb 6.4 oz) LMP 10/25/2023 Estimated body mass index is 40.28 kg/m?? as calculated from the following: Height as of 12/30/24: 160 cm (63 ). Weight as of this encounter: 103 kg (227 lb 6.4 oz). Ultrasound Impression: See viewpoint Assessment and Plan Kala Beltran is a 39 y.o. 33w0d Diagnoses and all orders for this visit: 1. Chronic hypertension affecting (Primary) 2. Antepartum multigravida of advanced maternal age 3. Abnormal genetic test during 4. Poor growth affecting management of mother in third trimester, single or unspecified fetus Assessment & Plan: Mild IUGR noted today Otherwise reassuring evaluation Recommend twice weekly testing with follow up growth in 3 weeks with M Follow Up 3 weeks I spent 20 minutes caring for the patient on the [...] other procedures such as amniocentesis or CVS. Jessica Alejandra MD FACOG Maternal Medicine, [facility] 04/08/2025 documented in this encounter Plan of Treatment Upcoming Encounters Date Type Department Care Team (Late st Contact Info) Description 04/30/2025 3:30 PM EDT Office Visit [facility] [address] [facility] [address] [place] [address] 04/30/2025 3:30 PM EDT Appointment [facility] US PER DIAG [facility] [address] [place] [address] documented as of this encounter Visit Diagnoses Diagnosis Chronic hypertension affecting - Primary Antepartum multigravida of advanced maternal age Abnormal genetic test during Poor growth affecting management of mother in third trimester, single or unspecified fetus documented in this encounter Care Teams Emergency Preparedness Manager Relationship Specialty Start Date End Date Provider, [place] [address] PCP - General 01/04/24 documented as of this encounter
--- OUTSIDE RECORDS SUMMARY | 2025-04-22 15:37 | XMS_ITS | Encounter Summary ---
Author Organization [email or web address] ([place], [place], [place], [place]) Address [address] [place] [address] Care Team Providers Care Hull Outfit Supervisor Name Role Phone Unavailable Primary Care Provider Unavailabl e Encounter Details Date Type Department Care Team (Late st Contact Info) Description 10/11/2018 Transcribed Document [facility] [place] Family Medicine [facility] [place] [address] ProviderChula MD [address] [place] [address] Social History Tobacco Use Types [...] - Chula ProviderMD - 10/11/2018 9:[address] MAGISTRATE DATE OF PROCEDURE: 10/11/2018 ORTHOPEDIC OPERATIVE NOTE PREOPERATIVE DIAGNOSIS(ES): Right L5-S1 herniated nucleus pulposus. POSTOPERATIVE DIAGNOSIS(ES): Right L5-S1 herniated nucleus pulposus. PROCEDURE: Right L5-S1 microdiscectomy, CPT code-90599. SURGEON: Chase Recinos MD SENIOR DIGITAL DESIGNER: Benjy. COMPLICATIONS: None. SPECIMENS: None. IMPLANTS: None. ESTIMATED BLOOD LOSS: 25 mL. DESCRIPTION OF PROCEDURE: Patient was identified in the holding area at [facility], transferred to the operative room under [...]
--- OUTSIDE RECORDS SUMMARY | 2025-04-22 15:37 | XMS_ITS | Encounter Summary ---
Author Organization [employer] ([place], [place], [place], [place]) Address [address] [place] [address] Care Team Providers Care Cooling System Operator Name Role Phone Unavailable Primary Care Provider Unavailabl e Encounter Details Date Type Department Care Team (Late st Contact Info) Description 10/11/2018 Transcribed Document [facility] [place] Family Medicine [facility] [place] [address] ProviderChula MD [address] [place] [address] Social History Tobacco Use [...] - Chula ProviderMD - 10/11/2018 8:13 AM CHINA PAINTER POLINA Main OR IntraOp Summary Primary Physician: JUANY PRICE MD Finalized Date/Time: 10/11/18 09:39:55 Pt. Name: RAIN BERNARDLONNIE Acevedo /Sex: 1985 Female Med Rec #: [id number] Physician: JUANY PRICE MD Financial #: [id number] Pt. Type: O Room/Bed: [facility] Admit/Disch: 10/11/18 04:54:00 - Institution: [facility] [place] IntraOp Case Attendance Entry 1 Entry 2 Entry 3 Case Attendee JUANY PRICE MD BRUNNER, RICHARD V, Chelsey Bran Rn-Surgery Role Performed Surgeon/Proceduralist, DIRECTOR DIGITAL SALES/Nurse Director Of Vendor Management Tightening Machine Operator, First First Time In 10/11/18 07:39:00 10/11/18 [...] BRUNER, HAVEN Role Performed Scrub, First Physician employment assistant Internal Combustion Engine Subassembler Time In 10/11/18 07:39:00 10/11/18 07:39:00 10/11/18 07:39:00 Time Out 10/11/18 09:33:00 10/11/18 09:33:00 10/11/18 09:33:00 Procedure Lumbar Microdiscectomy Lumbar Microdiscectomy Lumbar Microdiscectomy Other Attendee Superficial Wound Closed By: Last Modified By: Chelsey Mae Demike, Cynthia Y, Demike, Cynthia Y, Rn-Surgery 10/11/18 Rn-Surgery 10/11/18 Rn-Surgery 10/11/18 09:33:47 09:33:47 09:33:47 Entry 7 Entry 8 Case Attendee FABIAN CRUZ, RN [address] Role Performed Tightening Machine Operator, Second Scrub, Second Time In 10/11/18 08:48:00 10/11/18 09:02:00 Time Out 10/11/18 09:02:00 10/11/18 09:33:00 Procedure Lumbar Microdiscectomy Lumbar Microdiscectomy Other Attendee Superficial Wound Closed By: Last Modified By: Chelsey Mae Demike, Cynthia Y, Rn-Surgery 10/11/18 Rn-Surgery 10/11/18 09:33:47 09:33:47 S[facility] IntraOp Case Attendance Audit 10/11/18 09:33:47 Physician Asst: [id number] Modifier: [id number] 1 <*> Procedure Lumbar Microdiscectomy 2 <+> [...] 8 <*> Procedure Lumbar Microdiscectomy 10/11/18 09:21:03 Physician Asst: [id number] Modifier: [id number] 1 <+> Time Out 1 <*> Procedure Lumbar Microdiscectomy 10/11/18 09:04:27 Physician Asst: [id number] Modifier: [id number] <+> 1 Procedure 2 <*> Procedure Lumbar Microdiscectomy 3 <*> Procedure Lumbar Microdiscectomy 4 <*> Procedure Lumbar Microdiscectomy 5 <*> Procedure Lumbar Microdiscectomy 6 <*> Procedure Lumbar Microdiscectomy 7 <*> Procedure Lumbar Microdiscectomy 8 <*> Procedure Lumbar Microdiscectomy 10/11/18 09:04:05 Physician Asst: [id number] Modifier: [id number] <+> 7 Case Attendee <+> 7 Role Performed <+> 7 Time In <+> 7 Time Out <+> 7 Procedure <+> 8 Case Attendee <+> 8 Role Performed <+> 8 Time In <+> 8 Procedure 10/11/18 08:29:38 Physician Asst: [id number] Modifier: [id number] 2 <*> Procedure Lumbar Microdiscectomy 3 <*> Procedure Lumbar Microdiscectomy 4 <*> Procedure Lumbar Microdiscectomy 5 <*> Procedure Lumbar Microdiscectomy 6 <+> Time In 6 <*> Procedure Lumbar Microdiscectomy 10/11/18 08:24:25 Physician Asst: [id number] Modifier: [id number] 2 <*> Procedure Lumbar Microdiscectomy 3 <*> Procedure Lumbar Microdiscectomy 4 <*> Procedure Lumbar Microdiscectomy 5 <+> Time In 5 <*> Procedure Lumbar Microdiscectomy <+> 6 Case Attendee <+> 6 Role Performed <+> 6 Procedure 10/11/18 08:13:49 Physician Asst: [id number] Modifier: [id number] <+> 1 Time In 2 <+> Time [...] [facility] IntraOp Case Times Audit 10/11/18 09:33:44 Physician Asst: [id number] Modifier: [id number] <+> 1 Out Room Time <+> 1 Stop Time 10/11/18 09:33:20 Physician Asst: [id number] Modifier: [id number] <+> 1 Stop Time 10/11/18 08:13:56 Physician Asst: [id number] Modifier: [id number] <+> 1 Start Time SJE IntraOp Cautery [...] 08:35:57 SJE IntraOp Cautery Audit 10/11/18 08:35:57 Physician Asst: [id number] Modifier: [id number] 1 <*> Grounding Pad Site Right Lower [...] SJE IntraOp Counts Final Audit 10/11/18 09:21:17 Physician Asst: [id number] Modifier: [id number] 1 <*> Procedure Lumbar Microdiscectomy 1 <+> [...] Rn-Surgery 10/11/18 08:26:46 SJE IntraOp General Case [place] 1 Case Information OR OR 01 SJE [...] Avitene 1Gm powder - Marcaine 0.25% 30ml [id number] vial - [id number] Combo Med List Time Administered Route of [...] Intra Op Sign Out Audit 10/11/18 09:39:50 Physician Asst: [id number] Modifier: [id number] <+> 1 RN Sign Out Signature Date/Time [...] SJE IntraOp Surgical Procedures Audit 10/11/18 09:33:24 Physician Asst: [id number] Modifier: [id number] 1 <*> Procedure Lumbar Microdiscectomy 1 <+> Stop 10/11/18 09:21:35 Physician Asst: [id number] Modifier: [id number] 1 <*> Procedure Lumbar Microdiscectomy 1 <+> Specialty 10/11/18 09:04:26 Physician Asst: [id number] Modifier: [id number] <+> 1 Primary Procedure <+> 1 Primary Surgeon <+> 1 Start <+> 1 Wound Class <+> 1 Anesthesia Type <+> 1 Additional Procedure Description SJE IntraOp Temp Regulation Devices Entry 1 Temp Regulation Temperature Forced Air Warming Regulation Device device Temperature Upper body Regulation Site Temperature Device 43 Setting Temperature CARLTON HARKINS V DIRECTOR DIGITAL SALES Regulation Device Applied by Last Modified By: [...] SJE IntraOp Time Out Audit 10/11/18 08:33:51 Physician Asst: [id number] Modifier: [id number] 1 <+> Beta Thalia Administered 1 <+> [...] Rn-Surgery 10/11/18 09:39 Electronically signed by Hanane [facility] Conversion Jewel Stripper Cerner at 01/06/2023 4:42 PM CDT documented in this encounter Plan of Treatment Not on file documented as of this encounter Visit Diagnoses Not on filedocumented in this encounter
--- OUTSIDE RECORDS SUMMARY | 2025-04-22 15:37 | XMS_ITS | Encounter Summary ---
Author Organization [employer] ([place], [place], [place], [place]) Address [address] [place] [address] Care Team Providers Care Redevelopment Specialist Name Role Phone Unavailable Primary Care Provider Unavailabl e Encounter Details Date Type Department Care Team (Late st Contact Info) Description 10/11/2018 Transcribed Document [facility] [place] [facility] [place] [address] ProviderChula MD [address] [place] [address] Social History Tobacco Use Types [...] - Chula ProviderMD - 10/11/2018 8:13 AM FIXED INCOME ANALYST POL[place] Main OR PreOp Summary Primary Physician: JUANY PRICE MD Finalized Date/Time: 10/11/18 10:17:21 Pt. Name: SHIVAM BERNARD D.O.B./Sex: 1985 Female Med Rec #: [id number] Physician: JUANY PRICE MD Financial #: [id number] Pt. Type: O Room/Bed: [facility] Admit/Disch: 10/11/18 04:54:00 - Institution: [facility] [place] PreOp Case Times Entry 1 In Preop 10/11/18 05:30:00 Ready for Holding n/a Room Patient Ready for 10/11/18 06:47:00 Surgery Patient Out of Preop 10/11/18 07:35:00 Patient Out of n/a Holding Room Last Modified By: CYNDI LEONARD 10/11/18 10:17:20 SJE PreOp Case Times Audit 10/11/18 10:17:20 Chemist Enzymes: MANDOINMARCK Modifier: [email or web address] <+> 1 Patient Out of Preop 10/11/18 06:47:33 Chemist Enzymes: CRAINMA Modifier: [email or web address] <+> 1 Patient Ready for Surgery Finalized By: CYNDI LEONARD Document Signatures Signed By: CYNDI LEONARD 10/11/18 10:17 documented in this encounter Plan of Treatment Not on file documented as of this encounter Visit Diagnoses Not on filedocumented in this encounter
--- OUTSIDE RECORDS SUMMARY | 2025-04-22 15:37 | XMS_ITS | Encounter Summary ---
Author Organization [employer] ([place], [place], [place], [place]) Address [address] [place] [address] Care Team Providers Care Receiver Name Role Phone Unavailable Primary Care Provider Unavailabl e Encounter Details Date Type Department Care Team (Late st Contact Info) Description 10/11/2018 Transcribed Document [facility] [place] Family Medicine [facility] [place] [address] ProviderChula MD [address] [place], [place] [id number] Social History Tobacco Use Types Packs/Day Years [...] - Historical ProviderMD - 10/11/2018 7:35 AM SOLAR CONSULTANT Event Note Entered On: 10/11/2018 7:37 EST [...]
--- OUTSIDE RECORDS SUMMARY | 2025-04-22 15:37 | XMS_ITS | Encounter Summary ---
Author Organization [employer] ([place], [place], [place], [place]) Address [address] [place] [address] Care Team Providers Care Document Coordinator Name Role Phone Unavailable Primary Care Provider Unavailabl e Encounter Details Date Type Department Care Team (Late st Contact Info) Description 10/11/2018 Transcribed Document [facility] [place] [address] ProviderChula MD [address] [place] [address] Social History Tobacco Use Types [...] - Historical ProviderMD - 10/11/2018 6:33 AM DRY MIXER Pre Procedure Adult Entered On: 10/11/2018 6:47 EST Performed On: 10/11/2018 6:33 EST by Naa Alonso Nurse - denise Height and Weight, Clinical Dosing Height Source : Stated Height Entry Format : [place] Height, Feet : 5 ft(Converted to: 152 cm, 60 Inch) Height, Inches : 4 Inch(Converted to: 0 ft 4 Inch, 10.16 cm) Clinical Height : 162.56 cm Weight Source : Standing scale Weight Entry Format : [place] Clinical Dosing Weight : 87.73 kg Weight, Pounds : 193 lb Body Surface Area (BSA) : 1.93 m2 Body Mass Index : 33.2 kg/m2 (HI) [place] Body Weight : 54 kg Naa Alonso [...] Admit : No Emergency Contact #1 : Anrol Emergency Contact #1 Emergency Contact #1 Relationship : spouse Emergency Contact #2 : . Emergency Contact #2 Phone Number : . Emergency Contact #2 Relationship : . Information Obtained From : Patient Primary Language : Swazi Preferred Communication Mode : Verbal Communication Barrier [...] Risk Level : 0-24 Low Risk [place] Fall Interventions : Adequate lighting, Call device within reach, Wheels locked Naa Alonso Nurse - denise - 10/11/2018 6:33 EST Fall Risk Education Grid Night Light Use : Verbalizes understanding Nonskid Footwear Use : Verbalizes understanding Siderails use/risks : Verbalizes understanding Naa Alonso Nurse - ednise - 10/11/2018 6:33 EST Barriers to Learning [...]
--- OUTSIDE RECORDS SUMMARY | 2025-04-22 15:37 | XMS_ITS | Encounter Summary ---
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 Conversion Correctional Nurse Cerner at 01/06/2023 4:48 PM CDT documented in this encounter Plan of Treatment Not on file documented as of this encounter Visit Diagnoses Not on filedocumented in this encounter
--- OUTSIDE RECORDS SUMMARY | 2025-04-22 15:37 | XMS_ITS | Encounter Summary ---
Author Organization [employer] ([place], [place], [place], [place]) Address [address] [place] [address] Care Team Providers Care Airworthiness Safety Inspector Name Role Phone Unavailable Primary Care Provider Unavailabl e Encounter Details Date Type Department Care Team (Late st Contact Info) Description 10/11/2018 Transcribed Document [facility] [place] [facility] [place] [address] ProviderChula MD [address] [place] [address] Social History Tobacco Use Types [...] - Chula ProviderMD - 10/11/2018 8:13 AM SPORTS BOOK SERVER E Main OR PACU Summary Primary Physician: JUANY PRICE MD Finalized Date/Time: 10/11/18 11:43:57 Pt. Name: SHIVAM BERNARD D.O.B./Sex: 1985 Female Med Rec #: [id number] Physician: JUANY PRICE MD Financial #: [id number] Pt. Type: O Room/Bed: [facility] Admit/Disch: 10/11/18 04:54:00 - Institution: [facility] [place] Main OR PACU [...] RN 10/11/18 11:43 Electronically signed by Hanane [facility] Conversion Thermograph Operator Cerner at 01/06/2023 4:48 PM CDT documented in this encounter Plan of Treatment Not on file documented as of this encounter Visit Diagnoses Not on filedocumented in this encounter
--- OUTSIDE RECORDS SUMMARY | 2025-04-22 15:37 | XMS_ITS | Encounter Summary ---
Author Organization [facility] Address [address] [place] [address] Care Team Providers Care Deck Molder Name Role Phone Provider, No Known Primary Care Provider [phone] Encounter Details Date Type Department Care Team [...] PM EDT Office Visit [facility] [address] [place] [address] 04/30/2025 3:30 PM EDT Appointment [facility] [address] [place] [address] documented as of this encounter Visit Diagnoses Not on filedocumented in this encounter Care Teams Deck Molder Relationship Specialty Start Date End Date Provider, [place] [address] PCP - General 4/18/24 documented as of this encounter
--- OUTSIDE RECORDS SUMMARY | 2025-04-22 15:37 | XMS_ITS | Encounter Summary ---
Author Organization [employer] ([place], [place], [place], [place]) Address [address] [place] [address] Care Team Providers Care Neuropsychology Medical Consultant Name Role Phone Unavailable Primary Care Provider Unavailabl e Encounter Details Date Type Department Care Team (Late st Contact Info) Description 10/11/2018 Transcribed Document [facility] [place] [facility] [place] [address] ProviderChula MD [address] [place] [address] Social History Tobacco Use Types [...] - Chula ProviderMD - 10/11/2018 8:13 AM COSMETIC ACCOUNT COORDINATOR [place] Main OR PostOp Summary Primary Physician: JUANY PRICE MD Finalized Date/Time: 10/11/18 13:49:18 Pt. Name: SHIVAM BERNARD D.O.B./Sex: 1985 Female Med Rec #: [id number] Physician: JUANY PRICE MD Financial #: [id number] Pt. Type: O Room/Bed: [facility] Admit/Disch: 10/11/18 04:54:00 - Institution: [facility] [place] Main [place] PostOp Case Times Entry 1 In PACU II 10/11/18 11:36:00 Ready for PACU II 10/11/18 13:44:00 Discharge Discharge from PACU 10/11/18 13:44:00 II Last Modified By: Elba Ram Rn 10/11/18 13:49:17 SJCarole Main OR PostOp Case Times Audit 10/11/18 13:49:17 Bar Finish Operator: STEPH Modifier: STEPH <+> 1 Ready for PACU II Discharge <+> 1 Discharge from PACU II Finalized By: Elba Ram, Rn Document Signatures Signed By: Elba Ram Rn 10/11/18 13:49 Electronically signed by Hanane [facility] Conversion Prepared Foods Team Leader Cerner at 01/06/2023 5:02 PM CDT documented in this encounter Plan of Treatment Not on file documented as of this encounter Visit Diagnoses Not on filedocumented in this encounter
--- OUTSIDE RECORDS SUMMARY | 2025-04-22 15:37 | XMS_ITS | Encounter Summary ---
Author Organization [employer] ([place], [place], [place], [place]) Address [address] [place] [address] Care Team Providers Care Chip Applying Machine Tender Name Role Phone Unavailable Primary Care Provider Unavailabl e Encounter Details Date Type Department Care Team (Late st Contact Info) Description 09/27/2018 Transcribed Document [facility] [place] Family Medicine [facility] [place] [address] ProviderChula MD [address] [place] [address] Social History Tobacco Use Types [...] - Chula ProviderMD - 09/27/2018 10:11 AM RELAY MOTORMAN PAT Adult Entered On: 09/27/2018 10:15 EST [...] Source : Stated Height Entry Format : [place] Height, Feet : 5 ft(Converted to: 152 cm, 60 Inch) Height, Inches : 4 Inch(Converted to: 0 ft 4 Inch, 10.16 cm) Clinical Height : 162.56 cm Weight Source : Standing scale Weight Entry Format : [place] Clinical Dosing Weight : 88.18 kg Weight, Pounds : 194 lb Body Surface Area (BSA) : 1.93 m2 Body Mass Index : 33.4 kg/m2 (HI) [place] Body Weight : 54 kg Veronica Marin [...] Obtained From : Patient Primary Language : Colombian Preferred Communication Mode : Verbal Communication Barrier [...]
--- OUTSIDE RECORDS SUMMARY | 2025-04-22 15:37 | XMS_ITS | Clinical Summary ---
Author Organization [facility] Address [address] [place] [address] Care Team Providers Care Rectification Printer Name Role Phone Provider, No Known Primary Care Provider [phone] Allergies No known active allergies Medications amLODIPine [...] given her abnormal NIPT this could be regional sales representative of that testing. As of [...] that CMV testing was performed with primary 3RD GRADE READING TEACHER and she said that the IgM was positive and that the antibody was high though we do not have records of this. This could be indicative of IgM with high avidity which could be regional sales representative of new infection though patient [...] Office Visit [facility] [address] [phone] Jessica Alejandra MD Chronic hypertension affecting (Primary Dx); Antepartum multigravida of advanced maternal age; Abnormal genetic test during ; Poor growth affecting management of mother in third trimester, single or unspecified fetus 04/08/2025 2:33 PM EDT - 04/08/2025 11:59 PM EDT Hospital Encounter [facility] [address] [place] [phone] Dominick Bentley MD Abnormal genetic test during ; Chronic hypertension affecting Discharge Disposition: Home or Self Care 04/08/2025 Travel 03/25/2025 3:00 PM EDT Office Visit [facility] [address] [phone] Dominick Bentley MD Poor growth affecting management of mother in third trimester, single or unspecified fetus (Primary Dx); Chronic hypertension affecting ; Antepartum multigravida of advanced maternal age; Abnormal genetic test during 03/25/2025 3:00 PM EDT - 03/25/2025 11:59 PM EDT Hospital Encounter [facility] [address] [place] [phone] Wilber Bender, Discharge Disposition: Home or Self Care 03/25/2025 Travel 02/25/2025 2:15 PM EDT Office Visit [facility] [address] [facility] [address] [place] [phone] Jessica Alejandra MD Antepartum multigravida of advanced maternal age (Primary Dx); Chronic hypertension affecting 02/25/2025 2:00 PM EDT - 02/25/2025 11:59 PM EDT Hospital Encounter [facility] [address] [place] [address] Wilber Bender, Discharge Disposition: Home or Self Care 02/25/2025 Travel 01/27/2025 3:00 PM EDT Office Visit [facility] [address] [address] Lois Agarwal MD Abnormal genetic test during (Primary Dx); Chronic hypertension affecting ; History of recurrent miscarriages; H/O delivery, currently ; Antepartum multigravida of advanced maternal age; 22 weeks gestation of 01/27/2025 2:29 PM EDT - 01/27/2025 11:59 PM EDT Hospital Encounter [facility] [address] [place] [address] Wilber Bender, Discharge Disposition: Home or Self [...] Office Visit [facility] [address] [place] [address] 04/30/2025 3:30 PM EDT Appointment [facility] [address] [place] [address] Health Maintenance Due Date Last [...] Priority Date/Time Associated Diagnosis Comments [facility] Routine 04/08/2025 3:27 PM EDT Abnormal genetic test during Chronic hypertension affecting [facility] Routine 03/25/2025 3:56 PM EDT Abnormal genetic test during Chronic hypertension affecting [facility] Routine 02/25/2025 2:41 PM EDT Abnormal genetic test during Chronic hypertension affecting [facility] Routine 01/27/2025 3:12 PM EDT Abnormal genetic test during Chronic hypertension affecting HEMOGLOBIN A1C Routine 01/08/2024 8:54 AM EDT Blighted ovum from Last 3 Months or Most Recently Relevant to Health Maintenance Results * [facility] (04/08/2025 3:27 PM EDT) Only the most recent of4 resultswithin the time period is included. Anatomical Region Laterality Modality Ultrasound 04/08/2025 3:10 PM EDT Narrative 04/09/2025 12:30 PM EDT PAT NAME: SHIVAM BERNARD MED REC#: [id number] DA: [id number] PAT GEND: F PAT TYPE: O EXAM ALIREZA: [id number] REF PHYS WILBER BENDER Comparison Studies The [...] EFW (oz) 14 oz EFW by: Hadlock ([id number]-[id number]-FL) Extended Cav. septi pel. tr 4.9 mm Roustabout 5.2 mm CM 8.0 mm 70% Nicolaides [...] in 3 weeks scheduled Coding ======= Description: 83240-87 Follow Up Ultrasound Description: 34373-16 BPP without NST Description: 66605-68 Doppler Umbilical Artery Adjunct Instructor: Josephine Gonzales RDMS Physician: Jessica Alejandra MD, FACOG Electronically signed by: Jessica Alejandra MD, FACOG at: 12:30 Procedure Note Jessica Alejandra MD - 04/09/2025 PAT NAME: SHIVAM BERNARD MED REC#: [id number] DA: [id number] PAT GEND: F PAT TYPE: O EXAM ALIREZA: [id number] REF PHYS WILBER BENDER Comparison Studies The findings of this study are compared to the prior ultrasound studydated 03/25/25 Patient Status Outpatient Indication ======== AMA. CHTN. Follow up IUGR. Abnormal NIPT (high risk triploidy, T13, T18.)Hx preeclampsia & PTD (32 & 35 wk). Morbid obesity BMI 40. Maternal Assessment [id number] cm Height (ft)5 ft Height (in)3 in Ajwymp874 kg Weight (lb)227 lb BMI40.22 kg/m Method ======= Transabdominal ultrasound examination. View: Adequate view ========= Black . Number of fetuses: 1 Dating ====== Method of dating:based on stated ARIA GA by prior [id number] w + 6 d ARIA by prior assessment:05/28/2025 Ultrasound examination on:04/08/2025 GA by U/S based upon:AC, BPD, Femur, HC GA by U/S31 w + 4 d ARIA by U/S:06/06/2025 Previous dating:based on stated ARIA, selected on 02/25/2025 Agreed ARIA of previous datin05/28/2025 Assigned:based on stated ARIA, selected on 04/08/2025 Assigned GA32 w + 6 d Assigned ARIA:05/28/2025 [id number] d Biometry Standard BPD80.2 mm 32w 1d 24% Hadlock OFD98.4 mm 31w 6d 23% Bella HC287.0 mm 31w 4d 2% Hadlock Cerebellum tr41.5 mm 32w 6d 31% Hill AC273.7 mm 31w 3d 14% Hadlock Femur59.6 mm 31w 0d 5% Hadlock Bnbczae34.1 mm 30w 6d 13% Bella HC / AC1.05 EFW1,758 g 31w 0d 9% Hadlock EFW (lb)3 lb EFW (oz)14 oz EFW by:Hadlock (VCL-OF-HZ-FL) Extended Cav. septi pel. tr4.9 mm Vp5.2 mm CM8.0 mm 70% Nicolaides Head / Face / Neck Cephalic index0.82 66% Nicolaides Extremities / Bony Struc FL / BPD0.74 FL / HC0.21 FL / AC0.22 Other Structures LJO986 bpm General Evaluation Cardiac activity present. FHR [...] growth in 3 weeks scheduled Coding ======= Description:45106-25 Follow Up Ultrasound Description:28355-89 BPP without NST Description:75056-85 Doppler Umbilical Artery Adjunct Instructor: Josephine Gonzales RDNY Physician: Jessica Alejandra MD, FACOG Electronically signed [...] - 01/09/2024 8:16 AM EDT Performed at: [address] [place] [id number] Wire Threader: Kevin Staley MD, Phone: [phone] Patient Fasting: N us Caleb Alves MD LAB BLOOD ORDERABLES Fin al Result Performing Organization Address City/State/[facility] Co de Phone Number [facility] [address] [place] [address], [facility] [address] [place] [address], from Last 3 Months or Most Recently Relevant to Health Maintenance Insurance [facility] Care Teams Rectification Printer Relationship Specialty Start Date End Date Provider, [place] [address] PCP - General 01/04/24
--- OUTSIDE RECORDS SUMMARY | 2025-04-22 15:37 | XMS_ITS | Encounter Summary ---
Author Organization [employer] ([place], [place], [place], [place]) Address [address] [place] [address] Care Team Providers Care Proc Tech Name Role Phone Unavailable Primary Care Provider Unavailabl e Encounter Details Date Type Department Care Team (Late st Contact Info) Description 09/27/2018 Transcribed Document [facility] [place] [facility] [place] [address] ProviderChula MD [address] [place] [address] Social History Tobacco Use Types [...] - Chula ProviderMD - 09/27/2018 10:30 AM SAMPLE PASTER Patient: SHIVAM BERNARD Age: 33 Years Sex: [...]
--- OUTSIDE RECORDS SUMMARY | 2025-04-22 15:37 | XMS_ITS | Encounter Summary ---
Author Organization [email or web address] ([place], [place], [place], [place]) Address [address] [place] [address] Care Team Providers Care Information Analyst Name Role Phone Unavailable Primary Care Provider Unavailabl e Encounter Details Date Type Department Care Team (Late st Contact Info) Description 10/11/2018 Transcribed Document [facility] [place] [address] ProviderChula MD [address] [place] [address] Social History Tobacco Use Types [...] - Historical ProviderMD - 10/11/2018 7:31 AM YEAST SUPERVISOR Event Note Entered On: 10/11/2018 7:33 EST [...]
--- OUTSIDE RECORDS SUMMARY | 2025-04-22 15:37 | XMS_ITS | Encounter Summary ---
Author Organization [employer] ([place], [place], [place], [place]) Address [address] [place] [address] Care Team Providers Care Terminal Carman Name Role Phone Unavailable Primary Care Provider Unavailabl e Encounter Details Date Type Department Care Team (Late st Contact Info) Description 10/11/[address] [facility] [place] [address] ProviderChula MD [address] [place] [address] Social History Tobacco Use Types [...] - Historical ProviderMD - 10/11/2018 6:12 AM CIVIL STRUCTURAL ENGINEER Pediatric Growth Entered On: 10/11/2018 6:12 EST Performed On: 10/11/2018 6:12 EST by Michelle Le Patient Facility Planner Height and Weight, Clinical Dosing Height Source : Stated Height Entry Format : [place] Height, Feet : 5 ft(Converted to: 152 cm, 60 Inch) Height, Inches : 4 Inch(Converted to: 0 ft 4 Inch, 10.16 cm) Clinical Height : 162.56 cm Weight Source : Standing scale Weight Entry Format : [place] Clinical Dosing Weight : 87.73 kg Weight, Pounds : 193 lb Body Surface Area (BSA) : 1.93 m2 Body Mass Index : 33.2 kg/m2 (HI) [place] Body Weight : 54 kg Michelle Le Patient Facility Planner - 10/11/2018 6:12 EST Electronically signed by Hanane [facility] Conversion Blocking Machine Operator Cerner at 01/06/2023 5:04 PM CDT documented in this encounter Plan of Treatment Not on file documented as of this encounter Visit Diagnoses Not on filedocumented in this encounter
--- OUTSIDE RECORDS SUMMARY | 2025-04-22 15:38 | XMS_ITS | Encounter Summary ---
Author Organization [facility] Address [address] [place] [address] Care Team Providers Care Cash Applications Manager Name Role Phone Provider, No Known Primary Care Provider [phone] Encounter Details Date Type Department Care Team [...] Description 04/30/2025 3:30 PM EDT Office Visit [facility] MATERNAL MEDICINE [address] [place] [address] 04/30/2025 3:30 PM EDT Appointment [facility] PER DIAG [facility] [address] [place] [address] documented as of this encounter Visit Diagnoses Not on filedocumented in this encounter Care Teams Cash Applications Manager Relationship Specialty Start Date End Date Provider, [place] [address] PCP - General 4/18/24 documented as of this encounter
--- OUTSIDE RECORDS SUMMARY | 2025-04-22 15:38 | XMS_ITS | Clinical Summary ---
Author Organization [facility] Address [address] [place] [address] Care Team Providers Care Plastic Bubble Packer Name Role Phone Rosemary Fuller Primary Care [...] Tdap) 09/12/2023 09/12/2013 Colonoscopy 12/29/2023 12/29/2021, 11/13/2019 [id number] Vaccine (1 - season) 2024 UKY-Depression Screening [...] RN Endo Nurse Roberto Carlos Davis CRNA MEDICAL COLLECTOR, No role selected Kell Carrera RN Endo Nurse Mady Alvarez Endo Nurse James Morales MD Anesthesiologist MD Daniel Dinero MD Proceduralist Edi Specialist Unknown Endo Nurse 1 Endo Nurse Preprocedure [...] were documented in this log. Findings Healthy [id number] ileocolonic anastomosis with no bleeding The rectum [...] <6.0% Children and Adolescents <7.5% . Source: [place] [employer]. Standards of medical care in diabetes, 2017. Diabetes Care.2017:40 (suppl 1):S1-S135. . HbA1c assay performed by an ion-exchange chromatography method that is certified traceable to the DCCT. 01/15/2019 10:5 6 AM EDT 01/15/2019 12:16 PM EDT us Faith Ruth MD LAB BLOOD ORDERABLES Final Resu lt SUNQUEST from Last 3 Months or Most Recently Relevant to Health Maintenance Insurance [facility] MEDICAID Care Teams Plastic Bubble Packer Relationship Specialty Start Date End Date Rosemary Fuller PA [address] [place] [address] PCP - General 01/29/21
--- OUTSIDE RECORDS SUMMARY | 2025-04-22 15:38 | XMS_ITS | Referral Summary ---
Author Organization [employer] ([place], [place], [place], [place]) Address [address] [place] [address] Care Team Providers Care Ship/Rec/Doc Control Name Role Phone Unavailable Primary Care Provider [...]
--- OUTSIDE RECORDS SUMMARY | 2025-04-22 15:38 | XMS_ITS | Clinical Summary ---
Author Organization [employer] ([place], [place], [place], [place]) Address [address] [place] [address] Care Team Providers Care Concrete Layer Name Role Phone Unavailable Primary Care Provider [...]
--- OUTSIDE RECORDS SUMMARY | 2025-04-22 15:38 | XMS_ITS | Encounter Summary ---
Author Organization [facility] Address [address] [place] [address] Care Team Providers Care Pig Lead Melter Helper Name Role Phone Provider, No Known Primary Care Provider [phone] Encounter Details Date Type Department Care Team [...] Description 04/30/2025 3:30 PM EDT Office Visit [facility] MATERNAL MEDICINE [address] [place] [address] 04/30/2025 3:30 PM EDT Appointment [facility] [address] [place] [address] documented as of this encounter Visit Diagnoses Not on filedocumented in this encounter Care Teams Pig Lead Melter Helper Relationship Specialty Start Date End Date Provider, [place] [address] PCP - General 4/18/24 documented as of this encounter
[2025-04-22 16:07] LABS: Hematocrit 29.9 % (37.0-47.0); Hemoglobin 9.3 g/dL (12.2-16.2); Immature Granulocytes % 0.4 %; Mean Corpuscular HGB Conc 31.1 g/dL (31.8-35.4); Mean Corpuscular Hemoglobin 24.5 pg (27.0-31.2); Mean Corpuscular Volume 78.9 fl (81-99); Nucleated Red Blood Cells % 0 %; Platelet Count 339 K/mm3 (142-424); Red Blood Count 3.79 M/mm3 (4.20-5.40); Red Cell Distribution Width-SD 42.3 fL; White Blood Count 11.1 K/mm3 (4.8-10.8)
[2025-04-22 16:13] LABS: Albumin Level 2.7 g/dl (3.5-5.0); Chloride 105 mmol/L (98-107)
[2025-04-22 16:14] LABS: Potassium 4.1 mmoL/L (3.5-5.1); Sodium 133 mmol/L (136-145)
[2025-04-22 16:16] LABS: Alanine Aminotransferase 17 U/L (12-78); Albumin/Globulin Ratio 0.8 (1.1-1.8); Alkaline Phosphatase 181 U/L (38-126); Anion Gap 8.1 mEq/L (5-15); Aspartate Amino Transferase 27 U/L (14-36); Bilirubin,Total 0.2 mg/dl (0.2-1.3); Blood Urea Nitrogen 6 mg/dl (7-17); Carbon Dioxide 24 mmol/L (22.0-30.0); Creatinine,Serum 0.50 mg/dl (0.52-1.04); Estimated Glomerular Filt Rate 137 ml/min (>60); GFR (African American) 166 ML/MIN (>60); Globulin 3.4 g/dL (1.3-3.2); Total Protein,Serum 6.1 g/dl (6.3-8.2)
[2025-04-22 16:17] LABS: Calcium 8.8 mg/dl (8.4-10.2); Glucose 84 mg/dl (74-100)
[2025-04-22 17:02] LABS: Uric Acid 3.9 mg/dl (2.5-6.2)
[2025-04-23 16:44] LABS: Ferritin 7.66 ng/ml (6.24-137)
== END 2025-04-22 23:59 | disposition home or self-care (01) ==
LOC: LAB 15:36
PROVIDERS: PCP Nurse Practitioner; Visit Provider Obstetrics & Gynecology
DX: O10.919 Unspecified pre-existing hypertension complicating pregnancy, unspecified trimester (principal); E66.9 Obesity, unspecified
CPT/HCPCS: 36415; 80053; 82570; 82728; 84156; 84550; 85025

== ENCOUNTER 2025-04-25 14:11 | Outpatient (CLI) | payer OTHER, SELFPAY ==
--- OUTSIDE RECORDS SUMMARY | 2025-02-25 14:00 | XMS_ITS | Encounter Summary ---
Author Organization [facility] Address [address] [place] [address] Care Team Providers Care Classroom Instructional Aide Name Role Phone Provider, No Known Primary Care Provider [phone] Reason for Visit * Diagnostic Imaging (Routine) - Closed Specialty Diagnoses / Procedures Referred By Carolyne diaz Referred To Contact Radiology Diagnoses Abnormal genetic test during Chronic hypertension affecting Procedures [facility] Bentley, Dominick Silva MD [address] [place] [address] Phone: tel: fax: Referral ID Status Reason Start Date Expiration Date Visits Re quested Visits Authorized [id number] Closed 12/30/2024 03/31/2026 4 4 Encounter Details Date Type Department Care Team (Latest Contact Info) Description 02/25/2025 2:00 PM EDT - 02/25/2025 11:59 PM EDT Hospital Encounter [facility] PER [facility] [address] [place] [address] Wilber Bender, 1210 [facility] [address] [id number] Discharge Disposition: Home or Self Care Social [...] Description 04/30/2025 3:30 PM EDT Office Visit [facility] [address] [place] [address] 04/30/2025 3:30 PM EDT Appointment [facility] US PER DIAG CTR [address] [place] [address] documented as of this encounter Procedures Procedure Name Priority Date/Time Associated Diagnosis Comments [facility] Routine 02/25/2025 2:41 PM EDT Abnormal genetic test during Chronic hypertension affecting documented in this encounter Results * [facility] (02/25/2025 2:41 PM EDT) Anatomical Region Laterality Modality Ultrasound 02/25/2025 2:28 PM EDT Narrative 02/26/2025 10:26 AM EDT PAT NAME: SHIVAM BERNARD [facility] REC#: [id number] DA: [id number] PAT GEND: F PAT TYPE: O EXAM ALIREZA: [id number] REF PHYS WILBER BENDER Comparison Studies The [...] EFW (oz) 14 oz EFW by: Hadlock (CFK-XA-RE-FL) Extended Cav. septi pel. tr 3.8 mm Forge Press Operator 5.2 mm Head / Face / Neck [...] IVC: Appears Normal 3-vessel view: Appears normal 5-bakbmx-oiahkva view: suboptimal Cardiac axis: Normal Stomach: Normal Kidneys: Normal Bladder: Normal Gender: female Wants to know gender: yes Echocardiogram 2D Echo (Qualitatively) 4-chamber view: Appears normal LVOT view: Appears normal RVOT view: Appears normal 3-vessel view: Appears normal 1-xlqumd-chbywmi view: suboptimal Aortic arch view: Appears normal [...] Follow up 4 weeks Coding ======= Description: 38095-86 Follow Up Ultrasound Description: 94065-98 Echo 2D, heart - initial Description: 08022-42 Doppler echo color flow Description: 11084-09 Doppler Umbilical Artery Metal Patternmaker Apprentice: Josephine Gonzales RDMS Physician: Jessica Alejandra MD, FACOG Electronically signed by: Jessica Alejandra MD, FACOG at: 10:26 Procedure Note Jessica Alejandra MD - 02/26/2025 PAT NAME: SHIVAM BERNARD MED REC#: [id number] DA: [id number] PAT GEND: F PAT TYPE: O EXAM ALIREZA: [id number] REF PHYS WILBER BENDER Comparison Studies The findings of this study are compared to the prior ultrasound studydated 01/27/25 Patient Status Outpatient Indication ======== Abnormal NIPT (high risk triploidy, T13, T18.) AMA. CHTN. Hx preeclampsia& PTD (32 & 35 wk). Obesity BMI 39. Maternal Assessment Metyqw691 cm Height (ft)5 ft Height (in)3 in Nfzobk192 kg Weight (lb)225 lb BMI39.87 kg/m Method ======= Transabdominal ultrasound examination. View: Suboptimal view: limited byfetal position and maternal habitus ========= Black . Number of fetuses: 1 Dating ====== Method of dating:based on stated ARIA GA by prior zaigzioqbs22 w + 6 d ARIA by prior [...] Hadlock Femur46.4 mm 25w 3d 6% Hadlock Nicvhrr63.5 mm 25w 0d 4% Bella HC / AC1.13 WUX341 g 25w 4d 10% Hadlock EFW (lb)1 lb EFW (oz)14 oz EFW by:Hadlock (LRJ-YM-FI-FL) Extended Cav. septi pel. tr3.8 mm Vp5.2 [...] / HC0.19 FL / AC0.22 Other Structures VMT529 bpm General Evaluation Cardiac activity present. FHR [...] SVC:Appears Normal IVC:Appears Normal 3-vessel view:Appears normal 0-vxyqxx-ocfwort view:suboptimal Cardiac axis:Normal Stomach:Normal Kidneys:Normal Bladder:Normal Gender:female Wants to know gender:yes Echocardiogram 2D Echo (Qualitatively) 4-chamber view:Appears normal LVOT view:Appears normal RVOT view:Appears normal 3-vessel view:Appears normal 3-bseeeu-cqcjxqb view:suboptimal Aortic arch view:Appears normal Ductal arch [...] Recommendation Follow up 4 weeks Coding ======= Description:41548-18 Follow Up Ultrasound Description:02547-17 Echo 2D, heart - initial Description:90801-99 Doppler echo color flow Description:57549-02 Doppler Umbilical Artery Metal Patternmaker Apprentice: Josephine Gonzales RDMS Physician: Jessica Alejandra MD, FACOG Electronically signed by: Jessica Alejandra MD, FACOG at: 1110:26 us Dominick Bent[place] MD IMG US ORDERABLES Final Result documented in this encounter Visit Diagnoses Not on filedocumented in this encounter Care Teams Classroom Instructional Aide Relationship Specialty Start Date End Date Provider, [place] [address] PCP - General 01/04/24 documented as of this encounter
--- OUTSIDE RECORDS SUMMARY | 2025-02-25 14:15 | XMS_ITS | Encounter Summary ---
[facility] Address [address] [place] [address] Care Team Providers Care Groundsman Name Role Phone Provider, No Known Primary Care Provider [phone] Reason for Visit * Reason Comments AMA; CHTN; hx preeclampsia; hx PTD; abno rmal NIPT Encounter Details Date Type Department Care Team (Late st Contact Info) Description 02/25/2025 2:15 PM EDT Office Visit [facility] MEDICINE [address] [address] Jessica Alejandra MD 1700 [facility] [address] [place] [address] [phone] Antepartum multigravida of advanced maternal age (Primary [...] under imaging tab of patient chart in [facility] (Viewpoint report). Jessica Alejandra MD documented in this encounter Plan of Treatment Upcoming Encounters Date Type Department Care Team (Late st Contact Info) Description 04/30/2025 3:30 PM EDT Office Visit [facility] 1700 [facility] [address] [place] [address] 04/30/2025 3:30 PM EDT Appointment [facility] [address] [place] [address] documented as of this encounter Visit Diagnoses Diagnosis Antepartum multigravida of advanced maternal age- Primary Chronic hypertension affecting documented in this encounter Care Teams Groundsman Relationship Specialty Start Date End Date Provider, [place] [address] PCP - General 01/04/24 documented as of this encounter
--- OUTSIDE RECORDS SUMMARY | 2025-03-25 15:00 | XMS_ITS | Encounter Summary ---
Author Organization [facility] Address [address] [place] [address] Care Team Providers Care Vice President Financial Name Role Phone Provider, No Known Primary Care Provider [phone] Reason for Referral * Diagnostic Imaging (Routine) - Authorized Specialty Diagnoses / Procedures Referred By Contac t Referred To Contact Radiology Diagnoses Chronic hypertension affecting Antepartum multigravida of advanced maternal age Poor growth affecting management of mother in third trimester, single or unspecified fetus Procedures [facility] Dominick Bentley MD [address] [place] [address] Phone: tel: fax: [facility] US PER DIAG CTR [address] [place] [address] Phone: tel: Referral ID Status Reason Start Date Expiration Date V isits Requested Visits Authorized [id number] Authorized 03/25/2025 06/24/2026 3 3 Reason for Visit * Reason Comments ama, CHTN, ABN NIPT Encounter Details Date Type Department Care Team (Late st Contact Info) Description 03/25/2025 3:00 PM EDT Office Visit [facility] MATERNAL MEDICINE [address] [place] [address] Dominick Bentley MD [address] [facility] [address] [place] [address] Poor growth affecting management of mother in [...] given her abnormal NIPT this could be life assurance representative of that testing. As of note [...] that CMV testing was performed with primary HEPATOLOGY PHYSICIAN and she said that the IgM was positive and that the antibody was high though we do not have records of this. This could be indicative of IgM with high avidity which could be life assurance representative of new infection though patient states [...] given her abnormal NIPT this could be life assurance representative of that testing. As of note [...] that CMV testing was performed with primary HEPATOLOGY PHYSICIAN and she said that the IgM was positive and that the antibody was high though we do not have records of this. This could be indicative of IgM with high avidity which could be life assurance representative of new infection though patient states [...] or sooner if clinically indicated. Orders: - [facility]; Standing 2. Chronic hypertension affecting Assessment & Plan: Patient presents for follow-up growth ultrasound secondary to AMA, chronic hypertension, abnormal NIPT. Blood sugar today 127/80. Orders: - [facility]; Standing 3. Antepartum multigravida of advanced maternal age - [facility]; Standing 4. Abnormal genetic test [...] CVS. Dominick Bentley MD, FACOG Maternal Medicine, [facility] documented in this encounter Plan of Treatment Upcoming Encounters Date Type Department Care Team (Late st Contact Info) Description 04/30/2025 3:30 PM EDT Office Visit [facility] MATERNAL MEDICINE [address] [facility] [address] [place] [address] 04/30/2025 3:30 PM EDT Appointment [facility] US PER DIAG CTR [address] [place] [address] Scheduled Orders Name Type Priority Associated Diagnoses Orde r Schedule [facility] Imaging Routine Chronic [...] during documented in this encounter Care Teams Vice President Financial Relationship Specialty Start Date End Date Provider, [place] [address] PCP - General 01/04/24 documented as of this encounter
--- OUTSIDE RECORDS SUMMARY | 2025-03-25 15:00 | XMS_ITS | Encounter Summary ---
Author Organization [facility] Address [address] [place] [address] Care Team Providers Care Innersole Maker Name Role Phone Provider, No Known Primary Care Provider [phone] Reason for Visit * Diagnostic Imaging (Routine) - Closed Specialty Diagnoses / Procedures Referred By Carolyne diaz Referred To Contact Radiology Diagnoses Abnormal genetic test during Chronic hypertension affecting Procedures [facility] Bentley, Dominick Silva MD [address] [place] [address] Phone: tel: fax: Referral ID Status Reason Start Date Expiration Date Visits Re quested Visits Authorized [id number] Closed 12/30/2024 03/31/2026 4 4 Encounter Details Date Type Department Care Team (Latest Contact Info) Description 03/25/2025 3:00 PM EDT - 03/25/2025 11:59 PM EDT Hospital Encounter [facility] PER [facility] CTR [address] [place] [address] Wilber Bender, 1210 [facility] [address] [id number] Discharge Disposition: Home or Self Care Social [...] Description 04/30/2025 3:30 PM EDT Office Visit [facility] [address] [facility] [address] [address] [place] [address] 04/30/2025 3:30 PM EDT Appointment [facility] US PER DIAG CTR [address] [place] [address] documented as of this encounter Procedures Procedure Name Priority Date/Time Associated Diagnosis Comments [facility] Routine 03/25/2025 3:56 PM EDT Abnormal genetic test during Chronic hypertension affecting documented in this encounter Results * [facility] (03/25/2025 3:56 PM EDT) Anatomical Region Laterality Modality Ultrasound 03/25/2025 3:25 PM EDT Narrative 03/25/2025 4:18 PM EDT PAT NAME: SHIVAM BERNARD MED REC#: [id number] DA: [id number] PAT GEND: F PAT TYPE: O EXAM ALIREZA: [id number] REF PHYS WILBER BENDER Comparison Studies The [...] EFW (oz) 13 oz EFW by: Hadlock (PUM-NK-KK-FL) Extended Tibia 45.8 mm 27w 6d 2% Bella Fibula 45.4 mm 28w 1d 15% Bella Foot 57.5 mm 9% Chitty Radius 37.7 mm 26w 2d 14% Bella Ulna 41.3 mm 26w 6d <1% Bella Cav. septi pel. tr 5.5 mm Handbag Stitcher 3.8 mm CM 4.7 mm 3% Nicolaides [...] (one being BPP/BHAVYA/UA dopplers). Coding ======= Description: 00454-38 Follow Up Ultrasound Description: 50251-58 BPP without NST Description: 64088-27 Doppler Umbilical Artery Broach Operator: Yoly Choudhary RDMS Physician: Dominick Bentley MD, FACOG Electronically signed by: Dominick Bentley MD, FACOG at: 16:18 Procedure Note Dominick Bentley MD - 03/25/2025 PAT NAME: SHIVAM BERNARD MED REC#: [id number] DA: [id number] PAT GEND: F PAT TYPE: O EXAM ALIREZA: [id number] REF PHYS WILBER BENDER Comparison Studies The findings of this study are compared to the prior ultrasound studydated 02/25/25. Patient Status Outpatient Indication ======== Abnormal NIPT (high risk triploidy, T13, T18.) AMA. CHTN. Hx preeclampsia& PTD (32 & 35 wk). Obesity BMI 39. Maternal Assessment Zqzzaf378 cm Height (ft)5 ft Height (in)3 in Zrjpyq471 kg Weight (lb)227 lb BMI40.22 kg/m Method ======= Transabdominal ultrasound examination ========= Black . Number of fetuses: 1 Dating ====== GA by prior [id number] w + 6 d ARIA by prior [...] GA30 w + 6 d Assigned ARIA:05/28/2025 [id number] d Biometry Standard BPD74.1 mm 29w 5d 11% Hadlock OFD93.7 mm 30w 2d 33% Bella HC267.1 mm 29w 1d <1% Hadlock Cerebellum tr38.6 mm 31w 3d 48% Hill AC252.3 mm 29w 3d 11% Hadlock Femur51.2 mm 27w 3d <1% Hadlock Zdgjjfb83.3 mm 26w 2d <1% Bella HC / AC1.06 EFW1,278 g 28w 3d 3% Hadlock EFW (lb)2 lb EFW (oz)13 oz EFW by:Hadlock (ZQO-GQ-GK-FL) Extended Tibia45.8 mm 27w 6d 2% Bella Jyypme83.4 mm 28w 1d 15% Bella Foot57.5 mm 9% Chitty Noauqc07.7 mm 26w 2d 14% Bella Ulna41.3 mm 26w 6d <1% Bella Cav. septi pel. tr5.5 mm Vp3.8 mm CM4.7 mm 3% Nicolaides Head / Face / Neck Cephalic index0.79 46% Nicolaides Extremities / Bony Struc FL / BPD0.69 FL / HC0.19 FL / AC0.20 Other Structures XTZ245 bpm General Evaluation Cardiac activity present. FHR [...] office (one being BPP/BHAVYA/UA dopplers). Coding ======= Description:40232-02 Follow Up Ultrasound Description:58354-34 BPP without NST Description:39615-61 Doppler Umbilical Artery Broach Operator: Yoly Choudhary RDMS Physician: Dominick Bentley MD, FACOG Electronically signed by: Dominick Bentley MD, FACOG at: 16:18 us Dominick Bentley MD IMG US ORDERABLES Final Result documented in this encounter Visit Diagnoses Not on filedocumented in this encounter Care Teams Innersole Maker Relationship Specialty Start Date End Date Provider, [place] [address] PCP - General 01/04/24 documented as of this encounter
--- OUTSIDE RECORDS SUMMARY | 2025-04-08 14:33 | XMS_ITS | Encounter Summary ---
Author Organization [facility] Address [address] [place] [address] Care Team Providers Care Predictive Maintenance Specialist Name Role Phone Provider, No Known Primary Care Provider Reason for Referral * Diagnostic Imaging (Routine) - Closed Specialty Diagnoses / Procedures Referred By Carolyne diaz Referred To Contact Radiology Diagnoses Abnormal genetic test during Chronic hypertension affecting Procedures [facility] Dominick Bentley MD [address] [place] [address] Phone: tel: fax: Referral ID Status Reason Start Date Expiration Date Visits Re quested Visits Authorized [id number] Closed 12/30/2024 03/31/2026 4 4 Reason for Visit * Diagnostic Imaging (Routine) - Closed Specialty Diagnoses / Procedures Referred By Carolyne diaz Referred To Contact Radiology Diagnoses Abnormal genetic test during Chronic hypertension affecting Procedures [facility] [place] Dominick Bentley MD [address] [facility] [address] [place] [address] Phone: tel: fax: Referral ID Status Reason Start Date Expiration Date Visits Re quested Visits Authorized [id number] Closed 12/30/2024 03/31/2026 4 4 Encounter Details Date Type Department Care Team (Late st Contact Info) Description 04/08/2025 2:33 PM EDT - 04/08/2025 11:59 PM EDT Hospital Encounter [facility] [address] [place] [address] Dominick Bentley MD [address] [place], [place] [id number] Abnormal genetic test during ; Chronic hypertension [...] 04/30/2025 3:30 PM EDT Office Visit [facility] [address] [place] [address] 04/30/2025 3:30 PM EDT Appointment [facility] [address] [place] [address] documented as of this encounter Procedures Procedure Name Priority Date/Time Associated Diagnosis Comments [facility] Routine 04/08/2025 3:27 PM EDT Abnormal genetic test during Chronic hypertension affecting documented in this encounter Results * [facility] (04/08/2025 3:27 PM EDT) Anatomical Region Laterality Modality Ultrasound 04/08/2025 3:10 PM EDT Narrative 04/09/2025 12:30 PM EDT PAT NAME: SHIVAM BERNARD MED REC#: [id number] DA: [id number] PAT GEND: F PAT TYPE: O EXAM ALIREZA: [id number] REF PHYS WILBER BHAKTA Comparison Studies The [...] EFW (oz) 14 oz EFW by: Hadlock ([id number]) Extended Cav. septi pel. tr 4.9 mm Campaign Assistant 5.2 mm CM 8.0 mm 70% Nicolaides [...] in 3 weeks scheduled Coding ======= Description: 43277-63 Follow Up Ultrasound Description: 16836-75 BPP without NST Description: 80408-26 Doppler [facility] Receptionist: Josephine Gonzales RDMS Physician: Jessica Alejandra MD, FACOG Electronically signed by: Jessica Alejandra MD, FACOG at: 12:30 Procedure Note Jessica Alejandra MD - 04/09/2025 PAT NAME: SHIVAM BERNARD MED REC#: [id number] DA: [id number] PAT GEND: F PAT TYPE: O EXAM ALIREZA: [id number] REF PHYS WILBER BHAKTA Comparison Studies The findings of this study are compared to the prior ultrasound studydated 03/25/25 Patient Status Outpatient Indication ======== AMA. CHTN. Follow up IUGR. Abnormal NIPT (high risk triploidy, T13, T18.)Hx preeclampsia & PTD (32 & 35 wk). Morbid obesity BMI 40. Maternal Assessment Julygh342 cm Height (ft)5 ft Height (in)3 in Elhtpp085 kg Weight (lb)227 lb BMI40.22 kg/m Method ======= Transabdominal ultrasound examination. View: Adequate view ========= Black . Number of fetuses: 1 Dating ====== Method of dating:based on stated ARIA GA by prior [id number] w + 6 d ARIA by prior assessment:05/28/2025 Ultrasound examination on:04/08/2025 GA by U/S based upon:AC, BPD, Femur, HC GA by U/S31 w + 4 d ARIA by U/S:06/06/2025 Previous dating:based on stated ARIA, selected on 02/25/2025 Agreed ARIA of previous datin05/28/2025 Assigned:based on stated ARIA, selected on 04/08/2025 Assigned GA32 w + 6 d Assigned ARIA:05/28/2025 sxpafz313 d Biometry Standard BPD80.2 mm 32w 1d 24% Hadlock OFD98.4 mm 31w 6d 23% Bella HC287.0 mm 31w 4d 2% Hadlock Cerebellum tr41.5 mm 32w 6d 31% Hill AC273.7 mm 31w 3d 14% Hadlock Femur59.6 mm 31w 0d 5% Hadlock Wnlwekh88.1 mm 30w 6d 13% Bella HC / AC1.05 EFW1,758 g 31w 0d 9% Hadlock EFW (lb)3 lb EFW (oz)14 oz EFW by:Hadlock ([id number]) Extended Cav. septi pel. tr4.9 mm Vp5.2 mm CM8.0 mm 70% Nicolaides Head / Face / Neck Cephalic index0.82 66% Nicolaides Extremities / Bony Struc FL / BPD0.74 FL / HC0.21 FL / AC0.22 Other Structures XHA960 bpm General Evaluation Cardiac activity present. FHR [...] growth in 3 weeks scheduled Coding ======= Description:37626-96 Follow Up Ultrasound Description:31063-00 BPP without NST Description:03911-85 Doppler [facility] Receptionist: Josephine Gonzales RDMS Physician: Jessica Alejandra MD, FACOG Electronically signed by: Jessica Alejandra MD, FACOG at: 2312:30 us Dominick Bentley MD [facility] ORDERABLES Final Result documented in this encounter Visit Diagnoses Diagnosis Abnormal genetic test during Chronic hypertension affecting documented in this encounter Care Teams Predictive Maintenance Specialist Relationship Specialty Start Date End Date Provider, [place] [address] PCP - General 01/04/24 documented as of this encounter
--- OUTSIDE RECORDS SUMMARY | 2025-04-08 14:45 | XMS_ITS | Encounter Summary ---
[facility] Address [address] [place] [address] Care Team Providers Care Electron Microscopist Name Role Phone Provider, No Known Primary Care Provider Reason for Visit * Reason Comments CHTN, AMA, abn NIPT, MO, hx PreE, IUGR Encounter Details Date Type Department Care Team (Late st Contact Info) Description 04/08/2025 2:45 PM EDT Office Visit [facility] MATERNAL MEDICINE [address] [address] Jessica Alejandra MD [address] [phone] Chronic hypertension affecting (Primary Dx); Antepartum multigravida [...] CVS. Jessica Alejandra MD FACOG Maternal Medicine, [facility] 04/08/2025 documented in this encounter Plan of Treatment Upcoming Encounters Date Type Department Care Team (Late st Contact Info) Description 04/30/2025 3:30 PM EDT Office Visit [facility] MEDIC[facility] [address] [facility] [place] [address] 04/30/2025 3:30 PM EDT Appointment [facility] PER DIAG [facility] [address] [place] [address] documented as of this encounter Visit Diagnoses Diagnosis Chronic hypertension affecting - Primary Antepartum multigravida of advanced maternal age Abnormal genetic test during Poor growth affecting management of mother in third trimester, single or unspecified fetus documented in this encounter Care Teams Electron Microscopist Relationship Specialty Start Date End Date Provider, [place] [address] PCP - General 01/04/24 documented as of this encounter
--- NOTE | 2025-04-25 13:45 | US_ITS ---
PROCEDURE: US OB BIOPHYSICAL PROFILE CLINICAL INDICATION: [place]-US OB BPP with BHAVYA COMPARISON: US US OB <= 14 WEEKS FETUS from 10/31/2024 US US OB BIOPHYSICAL PROFILE from 04/01/2025 US US OB BIOPHYSICAL PROFILE from 04/15/2025 FINDINGS: Transabdominal sonographic images of the uterus were obtained. From her established due date she is 35weeks 2days. The following parameters are obtained: Viable Fetus in the cephalic presentation with a posterolateral placenta grade 2. The cervix measures 3.04 cm in length. Measurements: heart Rate = 135bpm Amniotic fluid index: 13.49cm, MVP 6.44 cm. Qualitative AFV:2 Breathing movements: 2 Gross Body Movements: 2 Tone: 2 Biophysical profile score: 8 No obvious anomalies evident.Kidneys, profile, bladder, four-chamber heart, three-vessel cord appear normal. IMPRESSION: 1. Viable fetus in the cephalic presentation with a posterolateral placenta grade 2. 2. The fluid is within normal limits with an amniotic fluid index 13.49 cm, MVP 6.44 cm. 3. Biophysical profile is 8/8 with good breathing movement and movement seen. 4. Limited anatomical scan appears normal. Dictated by: Juan F Mcallister MD 04/26/2025 09:09 Juan F Mcallister MD in OV 04/26/2025 09:09
--- OUTSIDE RECORDS SUMMARY | 2025-04-25 14:13 | XMS_ITS | Encounter Summary ---
Author Organization [employer] ([place], [place], [place], [place]) Address [address] [place] [address] Care Team Providers Care Infusion Nurse Name Role Phone Unavailable Primary Care Provider Unavailabl e Encounter Details Date Type Department Care Team (Late st Contact Info) Description 10/11/[address] [facility] [place] [facility] [place] [address] ProviderChula MD [address] [place] [address] Social History Tobacco Use Types [...] - Chula ProviderMD - 10/11/2018 8:13 AM WINDOWS SUPPORT ENGINEER [place] Main OR PostOp Summary Primary Physician: JUANY PRICE MD Finalized Date/Time: 10/11/18 13:49:18 Pt. Name: SHIVAM BERNARD D.O.B./Sex: 1985 Female Med Rec #: [id number] Physician: JUANY PRICE MD Financial #: [id number] Pt. Type: O Room/Bed: [facility] Admit/Disch: 10/11/18 04:54:00 - Institution: [facility] Main OR PostOp Case Times Entry 1 In PACU II 10/11/18 11:36:00 Ready for PACU II 10/11/18 13:44:00 Discharge Discharge from PACU 10/11/18 13:44:00 II Last Modified By: Elba Ram Rn 10/11/18 13:49:17 [facility] Main OR PostOp Case Times Audit 10/11/18 13:49:17 Horticultural Services Supervisor: STEPH Modifier: STEPH <+> 1 Ready for PACU II Discharge <+> 1 Discharge from PACU II Finalized By: Elba Ram, Rn Document Signatures Signed By: Elba Ram Rn 10/11/18 13:49 Electronically signed by Hanane [facility] Conversion Marketing Engineer Cerner at 01/06/2023 5:02 PM CDT documented in this encounter Plan of Treatment Not on file documented as of this encounter Visit Diagnoses Not on filedocumented in this encounter
--- OUTSIDE RECORDS SUMMARY | 2025-04-25 14:13 | XMS_ITS | Encounter Summary ---
Author Organization [employer] ([place], [place], [place], [place]) Address [address] [place] [address] Care Team Providers Care Technical Support Manager Name Role Phone Unavailable Primary Care Provider Unavailabl e Encounter Details Date Type Department Care Team (Late st Contact Info) Description 10/11/2018 Transcribed Document [facility] [place] [facility] [place] [address] ProviderChula MD [address] [place] [address] Social History Tobacco Use Types [...] - Historical ProviderMD - 10/11/2018 6:33 AM DIRECTOR OF ASSESSING Pre Procedure Adult Entered On: 10/11/2018 6:47 EST Performed On: 10/11/2018 6:33 EST by Naa Alonso Nurse - denise Height and Weight, Clinical Dosing Height Source : Stated Height Entry Format : [place] Height, Feet : 5 ft(Converted to: 152 cm, 60 Inch) Height, Inches : 4 Inch(Converted to: 0 ft 4 Inch, 10.16 cm) Clinical Height : 162.56 cm Weight Source : Standing scale Weight Entry Format : [place] Clinical Dosing Weight : 87.73 kg Weight, Pounds : 193 lb Body Surface Area (BSA) : 1.93 m2 Body Mass Index : 33.2 kg/m2 ([place]) [place] Body Weight : 54 kg Naa Alonso [...] Obtained From : Patient Primary Language : Egyptian Preferred Communication Mode : Verbal Communication Barrier [...] Scale Risk Level : 0-24 Low Risk P[place]in Fall Interventions : Adequate lighting, Call device [...]
--- OUTSIDE RECORDS SUMMARY | 2025-04-25 14:13 | XMS_ITS | Encounter Summary ---
Author Organization [employer] ([place], [place], [place], [place]) Address [address] [place] [address] Care Team Providers Care Ethnology Teacher Name Role Phone Unavailable Primary Care Provider Unavailabl e Encounter Details Date Type Department Care Team (Late st Contact Info) Description 09/27/2018 Transcribed Document [facility] [place] Medicine [facility] [place] [address] ProviderChula MD [address] [place] [address] Social History Tobacco Use Types [...] - Chula ProviderMD - 09/27/2018 10:30 AM REHABILITATION COUNSELLOR Patient: SHIVAM BERNARD Age: 33 Years Sex: [...]
--- OUTSIDE RECORDS SUMMARY | 2025-04-25 14:13 | XMS_ITS | Encounter Summary ---
Author Organization [employer] ([place], [place], [place], [place]) Address [address] [place] [address] Care Team Providers Care Employment Trainer Name Role Phone Unavailable Primary Care Provider Unavailabl e Encounter Details Date Type Department Care Team (Late st Contact Info) Description 10/11/2018 Transcribed Document [facility] [place] [address] ProviderChula MD [address] [place] [address] Social History Tobacco Use Types [...] - Chula ProviderMD - 10/11/2018 8:13 AM RESEARCH SPECIALIST E Main OR PACU Summary Primary Physician: JUANY PRICE MD Finalized Date/Time: 10/11/18 11:43:57 Pt. Name: SHIVAM BERNARD D.O.B./Sex: 1985 Female Med Rec #: [id number] Physician: JUANY PRICE MD Financial #: [id number] Pt. Type: O Room/Bed: [facility] Admit/Disch: 10/11/18 04:54:00 - Institution: [facility] Main OR PACU Case Times Entry 1 [...] 10/11/18 11:43 Electronically signed by Hanane [facility] Conversion Production Engineer Cerner at 01/06/2023 4:48 PM CDT documented in this encounter Plan of Treatment Not on file documented as of this encounter Visit Diagnoses Not on filedocumented in this encounter
--- OUTSIDE RECORDS SUMMARY | 2025-04-25 14:13 | XMS_ITS | Encounter Summary ---
Author Organization [employer] ([place], [place], [place], [place]) Address [address] [place] [address] Care Team Providers Care Steward/Stewardess Banquet Name Role Phone Unavailable Primary Care Provider Unavailabl e Encounter Details Date Type Department Care Team (Late st Contact Info) Description 10/11/2018 Transcribed Document [facility] [place] [facility] [place] [address] ProviderChula MD [address] [place] [address] Social History Tobacco Use Types [...] - Chula ProviderMD - 10/11/2018 8:13 AM LEGAL ASSOCIATE [place] Main OR PreOp Summary Primary Physician: JUANY PRICE MD Finalized Date/Time: 10/11/18 10:17:21 Pt. Name: SHIVAM BERNARD D.O.B./Sex: 1985 Female Med Rec #: [id number] Physician: JUANY PRICE MD Financial #: [id number] Pt. Type: O Room/Bed: [facility] Admit/Disch: 10/11/18 04:54:00 - [place]: [facility] [place] PreOp Case Times Entry 1 In Preop 10/11/18 05:30:00 Ready for Holding n/a Room Patient Ready for 10/11/18 06:47:00 Surgery Patient Out of Preop 10/11/18 07:35:00 Patient Out of n/a Holding Room Last Modified By: CYNDI LEONARD 10/11/18 10:17:20 S[facility] PreOp Case Times Audit 10/11/18 10:17:20 Customer Support Engineer: MANDOINMARCK Modifier: [email or web address] <+> 1 Patient Out of Preop 10/11/18 06:47:33 Customer Support Engineer: CRAINMA Modifier: CRAINMA <+> 1 Patient Ready for Surgery Finalized By: CYNDI LEONARD Document Signatures Signed By: CYNDI LEONARD 10/11/18 10:17 documented in this encounter Plan of Treatment Not on file documented as of this encounter Visit Diagnoses Not on filedocumented in this encounter
--- OUTSIDE RECORDS SUMMARY | 2025-04-25 14:13 | XMS_ITS | Encounter Summary ---
Author Organization [employer] ([place], [place], [place], [place]) Address [address] [place] [address] Care Team Providers Care Sustainability Director Name Role Phone Unavailable Primary Care Provider Unavailabl e Encounter Details Date Type Department Care Team (Late st Contact Info) Description 10/11/2018 Transcribed Document [facility] [place] Family Medicine [facility] [place] [address] ProviderChula MD [address] [place] [address] Social History Tobacco Use Types [...] - Historical ProviderMD - 10/11/2018 6:12 AM CRYPTOANALYSIS TEACHER Pediatric Growth Entered On: 10/11/2018 6:12 EST Performed On: 10/11/2018 6:12 EST by Michelle Le Patient Chief Juvenile Probation Officer Height and Weight, Clinical Dosing Height Source : Stated Height Entry Format : [place] Height, Feet : 5 ft(Converted to: 152 cm, 60 Inch) Height, Inches : 4 Inch(Converted to: 0 ft 4 Inch, 10.16 cm) Clinical Height : 162.56 cm Weight Source : Standing scale Weight Entry Format : [place] Clinical Dosing Weight : 87.73 kg Weight, Pounds : 193 lb Body Surface Area (BSA) : 1.93 m2 Body Mass Index : 33.2 kg/m2 ([place]) [place] Body Weight : 54 kg Michelle Le Patient Chief Juvenile Probation Officer - 10/11/2018 6:12 EST Electronically signed by Hanane [facility] Conversion Instructional Technology Coach Cerner at 01/06/2023 5:04 PM CDT documented in this encounter Plan of Treatment Not on file documented as of this encounter Visit Diagnoses Not on filedocumented in this encounter
--- OUTSIDE RECORDS SUMMARY | 2025-04-25 14:13 | XMS_ITS | Encounter Summary ---
Author Organization [employer] ([place], [place], [place], [place]) Address [address] [place] [address] Care Team Providers Care Counseling Services Manager Name Role Phone Unavailable Primary Care Provider Unavailabl e Encounter Details Date Type Department Care Team (Late st Contact Info) Description 10/11/2018 Transcribed Document [facility] [place] Medicine [facility] [place] [address] ProviderChula MD [address] [place] [address] Social History Tobacco Use Types [...] - Chula ProviderMD - 10/11/2018 9:28 AM DATA DELIVERABLES MANAGER DATE OF PROCEDURE: 10/11/2018 ORTHOPEDIC OPERATIVE NOTE PREOPERATIVE DIAGNOSIS(ES): Right L5-S1 herniated nucleus pulposus. POSTOPERATIVE DIAGNOSIS(ES): Right L5-S1 herniated nucleus pulposus. PROCEDURE: Right L5-S1 microdiscectomy, CPT code-28708. SURGEON: Chase Recinos MD CASING RUNNER: Benjy. COMPLICATIONS: None. SPECIMENS: None. IMPLANTS: None. ESTIMATED BLOOD LOSS: 25 mL. DESCRIPTION OF PROCEDURE: Patient was identified in the holding area at [facility], transferred to the operative room [...]
--- OUTSIDE RECORDS SUMMARY | 2025-04-25 14:13 | XMS_ITS | Encounter Summary ---
Author Organization [employer] ([place], [place], [place], [place]) Address [address] [place] [address] Care Team Providers Care Parliamentary Counsel Name Role Phone Unavailable Primary Care Provider Unavailabl e Encounter Details Date Type Department Care Team (Late st Contact Info) Description 09/27/2018 Transcribed Document [facility] [place] [facility] [place] [address] ProviderChula MD [address] [place] [address] Social History Tobacco Use Types [...] - Chula ProviderMD - 09/27/2018 10:11 AM ROUTE CONTRACTOR PAT Adult Entered On: 09/27/2018 10:15 EST [...] Source : Stated Height Entry Format : [place] Height, Feet : 5 ft(Converted to: 152 cm, 60 Inch) Height, Inches : 4 Inch(Converted to: 0 ft 4 Inch, 10.16 cm) Clinical Height : 162.56 cm Weight Source : Standing scale Weight Entry Format : [place] Clinical Dosing Weight : 88.18 kg Weight, Pounds : 194 lb Body Surface Area (BSA) : 1.93 m2 Body Mass Index : 33.4 kg/m2 (HI) [place] Body Weight : 54 kg Veronica Marin [...] Obtained From : Patient Primary Language : Syrian Preferred Communication Mode : Verbal Communication Barrier [...]
--- OUTSIDE RECORDS SUMMARY | 2025-04-25 14:13 | XMS_ITS | Clinical Summary ---
Author Organization [facility] Address [address] [place] [address] Care Team Providers Care Sewing Machine Bobbin Winder Name Role Phone Provider, No Known Primary Care Provider [phone] Allergies No known active allergies Medications amLODIPine (NORVASC) 5 MG tablet take 1 tablet (5 mg) by oral route once daily 10/19/2023 Active famotidine (PEPCID) 40 MG tablet Take 1 tablet by mouth Daily. 10/19/2023 Active omeprazole (priLOSEC) 20 MG capsule Take 1 capsule by mouth Daily. 10/19/2023 Active labetalol (NORMODYNE) 200 MG tablet Take 1 tablet by mouth 3 times a day. 12/05/2023 Active hydrOXYzine (ATARAX) 10 MG tablet Take 1 tablet by mouth Every 6 (Six) Hours. 10/19/2023 Active sertraline (ZOLOFT) 50 MG tablet Take 1 tablet by mouth Daily. 10/19/2023 Active aspirin 81 MG EC tablet Take 1 tablet by mouth 2 (Two) Times a Day. Active Vit-Fe Fumarate-FA ( vitamin 27-0.8) 27-0.8 MG tablet tablet Take 1 tablet by mouth Daily. Active Active Problems Problem Noted Date Diagnosed Date Poor growth affecting management of mother in third trimester 03/25/2025 Assessment & Plan (04/09/2025 12:41 PM EDT): Mild IUGR noted today Otherwise reassuring evaluation Recommend twice weekly testing with follow up growth in 3 weeks with M Assessment & Plan (03/25/2025 4:15 PM EDT): [...] given her abnormal NIPT this could be client support representative of that testing. As of [...] that CMV testing was performed with primary HIGH SCHOOL ASSISTANT PRINCIPAL and she said that the IgM was positive and that the antibody was high though we do not have records of this. This could be indicative of IgM with high avidity which could be client support representative of new infection though patient [...] delivery, currently 025 Abnormal genetic test during 5 Assessment & Plan (12/30/2024 2:41 PM EDT): [...] Description 04/08/2025 2:45 PM EDT Office Visit [facility] [address] COUNTS INCLUDE 234 BEDS AT THE [facility] [address] [place] [phone] Jessica Alejandra MD Chronic hypertension affecting (Primary Dx); Antepartum multigravida of advanced maternal age; Abnormal genetic test during ; Poor growth affecting management of mother in third trimester, single or unspecified fetus 04/08/2025 2:33 PM EDT - 04/08/2025 11:59 PM EDT Hospital Encounter [facility] US PER DIAG CTR [address] [place] [phone] Dominick Bentley MD Abnormal genetic test during ; Chronic hypertension affecting Discharge Disposition: Home or Self Care 04/08/2025 Travel 03/25/2025 3:00 PM EDT Office Visit [facility] [address] COUNTS INCLUDE 234 BEDS AT THE [facility] [address] [place] [address] Dominick Bentley MD Poor growth affecting management of mother in third trimester, single or unspecified fetus (Primary Dx); Chronic hypertension affecting ; Antepartum multigravida of advanced maternal age; Abnormal genetic test during 03/25/2025 3:00 PM EDT - 03/25/2025 11:59 PM EDT Hospital Encounter [facility] US PER DIAG CTR [address] [place] [address] Wilber Bender DO Discharge Disposition: Home or Self Care 03/25/2025 Travel 02/25/2025 2:15 PM EDT Office Visit [facility] [address] [phone] Jessica Alejandra MD Antepartum multigravida of advanced maternal age (Primary Dx); Chronic hypertension affecting 02/25/2025 2:00 PM EDT - 02/25/2025 11:59 PM EDT Hospital Encounter [facility] US PER DIAG CTR [address] [place] [address] Wilber Bender, DO Discharge Disposition: Home or Self Care 02/25/2025 Travel 01/27/2025 3:00 PM EDT Office Visit [facility] MEDICINE [address] [phone] Lois Agarwal MD Abnormal genetic test during (Primary Dx); Chronic hypertension affecting ; History of recurrent miscarriages; H/O delivery, currently ; Antepartum multigravida of advanced maternal age; 22 weeks gestation of 01/27/2025 2:29 PM EDT - 01/27/2025 11:59 PM EDT Hospital Encounter [facility] US PER DIAG CTR [address] [place] [phone] Wilber Bender, Discharge Disposition: Home or Self [...] 04/30/2025 3:30 PM EDT Office Visit [facility] [address] [facility] [address] [address] [place] [phone] 04/30/2025 3:30 PM EDT Appointment [facility] US PER DIAG CTR [address] [facility] [place] [place] [phone] Health Maintenance Due Date Last Done Comments [...] Procedure Name Priority Date/Time Associated Diagnosis Comments [facility] Routine 04/08/2025 3:27 PM EDT Abnormal genetic test during Chronic hypertension affecting [facility] Routine 03/25/2025 3:56 PM EDT Abnormal genetic test during Chronic hypertension affecting [facility] Routine 02/25/2025 2:41 PM EDT Abnormal genetic test during Chronic hypertension affecting [facility] Routine 01/27/2025 3:12 PM EDT Abnormal genetic test during Chronic hypertension affecting HEMOGLOBIN A1C Routine 01/08/2024 8:54 AM EDT Blighted ovum from Last 3 Months or Most Recently Relevant to Health Maintenance Results * [facility] (04/08/2025 3:27 PM EDT) Only the most recent of4 resultswithin the time period is included. Anatomical Region Laterality Modality Ultrasound 04/08/2025 3:10 PM EDT Narrative 04/09/2025 12:30 PM EDT PAT NAME: SHIVAM BERNARD MED REC#: [id number] DA: [id number] PAT GEND: F PAT TYPE: O EXAM ALIREZA: [id number] REF PHYS WILBER BENDER Comparison Studies The [...] EFW (oz) 14 oz EFW by: Hadlock (NBI-NS-AA-FL) Extended Cav. septi pel. tr 4.9 mm Surg Physician Asst 5.2 mm CM 8.0 mm 70% Nicolaides [...] in 3 weeks scheduled Coding ======= Description: 98909-40 Follow Up Ultrasound Description: 21466-64 BPP without NST Description: 40207-15 Doppler Umbilical Artery Stenocaptioner: Josephine Gonzales RDMS Physician: Jessica Alejandra MD, FACOG Electronically signed by: Jessica Alejandra MD, FACOG at: 12:30 Procedure Note Jessica Alejandra MD - 04/09/2025 PAT NAME: SHIVAM BERNARD MED REC#: [id number] DA: [id number] PAT GEND: F PAT TYPE: O EXAM ALIREZA: [id number] REF PHYS WILBER BENDER Comparison Studies The findings of this study are compared to the prior ultrasound studydated 03/25/25 Patient Status Outpatient Indication ======== AMA. CHTN. Follow up IUGR. Abnormal NIPT (high risk triploidy, T13, T18.)Hx preeclampsia & PTD (32 & 35 wk). Morbid obesity BMI 40. Maternal Assessment Epefuo464 cm Height (ft)5 ft Height (in)3 in Itdgrk187 kg Weight (lb)227 lb BMI40.22 kg/m Method ======= Transabdominal ultrasound examination. View: Adequate view ========= Black . Number of fetuses: 1 Dating ====== Method of dating:based on stated ARIA GA by prior [id number] w + 6 d ARIA by prior assessment:05/28/2025 Ultrasound examination on:04/08/2025 GA by U/S based upon:AC, BPD, Femur, HC GA by U/S31 w + 4 d ARIA by U/S:06/06/2025 Previous dating:based on stated ARIA, selected on 02/25/2025 Agreed ARIA of previous datin05/28/2025 Assigned:based on stated ARIA, selected on 04/08/2025 Assigned GA32 w + 6 d Assigned ARIA:05/28/2025 udrvkn361 d Biometry Standard BPD80.2 mm 32w 1d 24% Hadlock OFD98.4 mm 31w 6d 23% Bella HC287.0 mm 31w 4d 2% Hadlock Cerebellum tr41.5 mm 32w 6d 31% Hill AC273.7 mm 31w 3d 14% Hadlock Femur59.6 mm 31w 0d 5% Hadlock Svxgqcv08.1 mm 30w 6d 13% Bella HC / AC1.05 EFW1,758 g 31w 0d 9% Hadlock EFW (lb)3 lb EFW (oz)14 oz EFW by:Hadlock (QRS-RI-JB-FL) Extended Cav. septi pel. tr4.9 mm Vp5.2 mm CM8.0 mm 70% Nicolaides Head / Face / Neck Cephalic index0.82 66% Nicolaides Extremities / Bony Struc FL / BPD0.74 FL / HC0.21 FL / AC0.22 Other Structures [id number] bpm General Evaluation Cardiac activity present. FHR [...] growth in 3 weeks scheduled Coding ======= Description:26576-82 Follow Up Ultrasound Description:26723-85 BPP without NST Description:41941-66 Doppler Umbilical Artery Stenocaptioner: Josephine Gonzales RDMS Physician: Jessica Alejandra MD, [...] 01/08/2024 8:54 AM EDT 01/08/2024 Narrative [facility] (AMBUL[facility]ORY) - 01/09/2024 8:16 AM EDT Performed at: [address] [place] [id number] Manager Vehicle: Kevin Staley MD, Phone: [phone] Patient Fasting: N Caleb Alves MD LAB BLOOD ORDERABLES Fin al Result [facility] ([facility]BUL[facility]ORY) [address] [place] [address], [place] [phone] [facility] [address] [place] [address], [place] [phone] from Last 3 Months or Most Recently Relevant to Health Maintenance Insurance [facility] Care Teams Sewing Machine Bobbin Winder Relationship Specialty Start Date End Date Provider, [place] [address] PCP - General 01/04/24
--- OUTSIDE RECORDS SUMMARY | 2025-04-25 14:13 | XMS_ITS | Encounter Summary ---
Author Organization [employer] ([place], [place], [place], [place]) Address [address] [place] [address] Care Team Providers Care Service Center Representative Name Role Phone Unavailable Primary Care Provider Unavailabl e Encounter Details Date Type Department Care Team (Late st Contact Info) Description 10/11/2018 Transcribed Document [facility] Family Medicine [facility] [place] [address] ProviderChula MD [address] [place] [id number] Social History Tobacco Use Types Packs/Day Years [...] - Historical ProviderMD - 10/11/2018 7:35 AM DRUM SPRAYER Event Note Entered On: 10/11/2018 7:37 EST [...]
--- OUTSIDE RECORDS SUMMARY | 2025-04-25 14:13 | XMS_ITS | Encounter Summary ---
Author Organization [employer] ([place], [place], [place], [place]) Address [address] [place] [address] Care Team Providers Care Second Officer Name Role Phone Unavailable Primary Care Provider Unavailabl e Encounter Details Date Type Department Care Team (Late st Contact Info) Description 10/11/2018 Transcribed Document [facility] Family Medicine [facility] [place] [address] ProviderChula MD [address] [place] [address] Social History Tobacco Use Types [...] - Historical ProviderMD - 10/11/2018 8:12 AM FORM SETTER STEEL FORMS Peripheral Nerve Block Entered On: 10/11/2018 8:13 [...] - 10/11/2018 8:12 EST Electronically signed by [facility], [facility] Conversion Carbon Cutter Cerner at 01/06/2023 4:48 PM CDT documented in this encounter Plan of Treatment Not on file documented as of this encounter Visit Diagnoses Not on filedocumented in this encounter
--- OUTSIDE RECORDS SUMMARY | 2025-04-25 14:13 | XMS_ITS | Encounter Summary ---
Author Organization [employer] ([place], [place], [place], [place]) Address [address] [place] [address] Care Team Providers Care Skirt Maker Name Role Phone Unavailable Primary Care Provider Unavailabl e Encounter Details Date Type Department Care Team (Late st Contact Info) Description 10/11/2018 Transcribed Document [facility] Family Medicine [facility] [place] [address] ProviderChula MD [address] [place] [address] Social History Tobacco Use Types [...] - Historical ProviderMD - 10/11/2018 7:31 AM VITICULTURE TEACHER Event Note Entered On: 10/11/2018 7:33 EST [...] IV Benadryl orders received for itching. Naa Alnoso Nurse - other - 10/11/2018 7:31 EST documented in this encounter Plan of Treatment Not on file documented as of this encounter Visit Diagnoses Not on filedocumented in this encounter
--- OUTSIDE RECORDS SUMMARY | 2025-04-25 14:13 | XMS_ITS | Encounter Summary ---
Author Organization [employer] ([place], [place], [place], [place]) Address [address] [place] [address] Care Team Providers Care Telephone Engineer Name Role Phone Unavailable Primary Care Provider Unavailabl e Encounter Details Date Type Department Care Team (Late st Contact Info) Description 10/11/2018 Transcribed Document [facility] [place] [facility] [place] [address] ProviderChula MD [address] [place] [address] Social History Tobacco Use [...] - Chula ProviderMD - 10/11/2018 8:13 AM PATTERN DRUM MAKER POLINA Main OR IntraOp Summary Primary Physician: JUANY PRICE MD Finalized Date/Time: 10/11/18 09:39:55 Pt. Name: RAIN BERNARDLONNIE Acevedo /Sex: 1985 Female Med Rec #: [id number] Physician: JUANY PRICE MD Financial #: [id number] Pt. Type: O Room/Bed: [facility] Admit/Disch: 10/11/18 04:54:00 - Institution: [facility] IntraOp Case Attendance Entry 1 Entry 2 Entry 3 Case Attendee JUANY PRICE MD BRUNNER, RICHARD V, Chelsey Bran Rn-Surgery Role Performed Surgeon/Proceduralist, STILL OPERATOR GIN/Nurse Log Chipper Senior Technologist, First First Time In 10/11/18 07:39:00 10/11/18 [...] BRUNER, HAVEN Role Performed Scrub, First Physician facility assistant Communication Assistant Time In 10/11/18 07:39:00 10/11/18 07:39:00 10/11/18 07:39:00 Time Out 10/11/18 09:33:00 10/11/18 09:33:00 10/11/18 09:33:00 Procedure Lumbar Microdiscectomy Lumbar Microdiscectomy Lumbar Microdiscectomy Other Attendee Superficial Wound Closed By: Last Modified By: Chelsey Mae Demike, Cynthia Y, Demike, Cynthia Y, Rn-Surgery 10/11/18 Rn-Surgery 10/11/18 Rn-Surgery 10/11/18 09:33:47 09:33:47 09:33:47 Entry 7 Entry 8 Case Attendee FABIAN CRUZ, RN [address] Role Performed Senior Technologist, Second Scrub, Second Time In 10/11/18 08:48:00 10/11/18 09:02:00 Time Out 10/11/18 09:02:00 10/11/18 09:33:00 Procedure Lumbar Microdiscectomy Lumbar Microdiscectomy Other Attendee Superficial Wound Closed By: Last Modified By: Chelsey Mae Demike, Cynthia Y, Rn-Surgery 10/11/18 Rn-Surgery 10/11/18 09:33:47 09:33:47 [facility] IntraOp Case Attendance Audit 10/11/18 09:33:47 Yeast Tender: [id number] Modifier: [id number] 1 <*> Procedure Lumbar Microdiscectomy 2 <+> [...] 8 <*> Procedure Lumbar Microdiscectomy 10/11/18 09:21:03 Yeast Tender: [id number] Modifier: [id number] 1 <+> Time Out 1 <*> Procedure Lumbar Microdiscectomy 10/11/18 09:04:27 Yeast Tender: [id number] Modifier: [id number] <+> 1 Procedure 2 <*> Procedure Lumbar Microdiscectomy 3 <*> Procedure Lumbar Microdiscectomy 4 <*> Procedure Lumbar Microdiscectomy 5 <*> Procedure Lumbar Microdiscectomy 6 <*> Procedure Lumbar Microdiscectomy 7 <*> Procedure Lumbar Microdiscectomy 8 <*> Procedure Lumbar Microdiscectomy 10/11/18 09:04:05 Yeast Tender: [id number] Modifier: [id number] <+> 7 Case Attendee <+> 7 Role Performed <+> 7 Time In <+> 7 Time Out <+> 7 Procedure <+> 8 Case Attendee <+> 8 Role Performed <+> 8 Time In <+> 8 Procedure 10/11/18 08:29:38 Yeast Tender: [id number] Modifier: [id number] 2 <*> Procedure Lumbar Microdiscectomy 3 <*> Procedure Lumbar Microdiscectomy 4 <*> Procedure Lumbar Microdiscectomy 5 <*> Procedure Lumbar Microdiscectomy 6 <+> Time In 6 <*> Procedure Lumbar Microdiscectomy 10/11/18 08:24:25 Yeast Tender: [id number] Modifier: [id number] 2 <*> Procedure Lumbar Microdiscectomy 3 <*> Procedure Lumbar Microdiscectomy 4 <*> Procedure Lumbar Microdiscectomy 5 <+> Time In 5 <*> Procedure Lumbar Microdiscectomy <+> 6 Case Attendee <+> 6 Role Performed <+> 6 Procedure 10/11/18 08:13:49 Yeast Tender: [id number] Modifier: [id number] <+> 1 Time In 2 <+> Time [...] [facility] IntraOp Case Times Audit 10/11/18 09:33:44 Yeast Tender: [id number] Modifier: [id number] <+> 1 Out Room Time <+> 1 Stop Time 10/11/18 09:33:20 Yeast Tender: [id number] Modifier: [id number] <+> 1 Stop Time 10/11/18 08:13:56 Yeast Tender: [id number] Modifier: [id number] <+> 1 Start Time [facility] IntraOp Cautery [...] 08:35:57 [facility] IntraOp Cautery Audit 10/11/18 08:35:57 Yeast Tender: [id number] Modifier: [id number] 1 <*> Grounding Pad Site Right Lower [...] [facility] IntraOp Counts Final Audit 10/11/18 09:21:17 Yeast Tender: [id number] Modifier: [id number] 1 <*> Procedure Lumbar Microdiscectomy 1 <+> Counts Verification Sequence [facility] IntraOp Delays Entry 1 Delay Reason Room not ready Duration 9 Minute(s) Last Modified By: Chelsye Mae Rn-Surgery 10/11/18 08:26:18 SJE IntraOp Departure [...] Rn-Surgery 10/11/18 08:26:46 S[facility] IntraOp General Case Manager Utilities 1 Case Information OR OR 01 SJE [...] Avitene 1Gm powder - Marcaine 0.25% 30ml [id number] vial - [id number] Combo Med List Time Administered Route of [...] Intra Op Sign Out Audit 10/11/18 09:39:50 Yeast Tender: [id number] Modifier: [id number] <+> 1 RN Sign Out Signature Date/Time [...] [facility] IntraOp Surgical Procedures Audit 10/11/18 09:33:24 Yeast Tender: [id number] Modifier: [id number] 1 <*> Procedure Lumbar Microdiscectomy 1 <+> Stop 10/11/18 09:21:35 Yeast Tender: [id number] Modifier: [id number] 1 <*> Procedure Lumbar Microdiscectomy 1 <+> Specialty 10/11/18 09:04:26 Yeast Tender: [id number] Modifier: [id number] <+> 1 Primary Procedure <+> 1 Primary Surgeon <+> 1 Start <+> 1 Wound Class <+> 1 Anesthesia Type <+> 1 Additional Procedure Description [facility] IntraOp Temp Regulation Devices Entry 1 Temp Regulation Temperature Forced Air Warming Regulation Device device Temperature Upper body Regulation Site Temperature Device 43 Setting Temperature CARLTON HARKINS V STILL OPERATOR GIN Regulation Device Applied by Last Modified By: [...] [facility] IntraOp Time Out Audit 10/11/18 08:33:51 Yeast Tender: [id number] Modifier: [id number] 1 <+> Beta Thalia Administered 1 <+> [...] Rn-Surgery 10/11/18 09:39 Electronically signed by [facility] Conversion Gymnastic Teacher Cerner at 01/06/2023 4:42 PM CDT documented in this encounter Plan of Treatment Not on file documented as of this encounter Visit Diagnoses Not on filedocumented in this encounter
--- OUTSIDE RECORDS SUMMARY | 2025-04-25 14:14 | XMS_ITS | Clinical Summary ---
Author Organization [employer] ([place], [place], [place], [place]) Address [address] [place] [address] Care Team Providers Care Bait Digger Name Role Phone Unavailable Primary Care Provider [...]
--- OUTSIDE RECORDS SUMMARY | 2025-04-25 14:14 | XMS_ITS | Clinical Summary ---
Author Organization [facility] Address [address] [place] [address] Care Team Providers Care Players Assistant Name Role Phone Rosemary Fuller Primary Care Provider [phone] Allergies No known active allergies Medications famotidine [...] Tdap) 09/12/2023 09/12/2013 Colonoscopy 12/29/2023 12/29/2021, 11/13/2019 [id number] Vaccine (1 - season) 2024 UKY-Depression Screening [...] RN Endo Nurse Roberto Carlos Davis CRNA BIOLOGY SPECIMEN TECHNICIAN, No role selected Kell Carrera RN Endo Nurse Mady Alvarez Endo Nurse James Morales MD Anesthesiologist MD Daniel Dinero MD Proceduralist Tare Worker Unknown Endo Nurse 1 Endo Nurse [...] of bowel preparation was evaluated using the [place] Bowel Preparation Scale with scores of: right [...] were documented in this log. Findings Healthy rzuw-fg-uosm ileocolonic anastomosis with no bleeding The rectum [...] <6.0% Children and Adolescents <7.5% . Source: [place] [employer]. Standards of medical care in diabetes, 2017. Diabetes Care.2017:40 (suppl 1):S1-S135. . HbA1c assay performed by an ion-exchange chromatography method that is certified traceable to the DCCT. 01/15/2019 10:5 6 AM EDT 01/15/2019 12:16 PM EDT us Faith Ruth MD LAB BLOOD ORDERABLES Final Resu lt SUNQUEST from Last 3 Months or Most Recently Relevant to Health Maintenance Insurance [facility] MEDICAID Care Teams Players Assistant Relationship Specialty Start Date End Date Rosemary Fuller PA [address] [place] [address] PCP - General 01/29/21
--- OUTSIDE RECORDS SUMMARY | 2025-04-25 14:14 | XMS_ITS | Referral Summary ---
Author Organization [employer] ([place], [place], [place], [place]) Address [address] [place] [address] Care Team Providers Care Slp Teacher Name Role Phone Unavailable Primary Care [...]
--- OUTSIDE RECORDS SUMMARY | 2025-04-25 14:14 | XMS_ITS | Encounter Summary ---
Author Organization [facility] Address [address] [place] [address] Care Team Providers Care Bolt Threader Name Role Phone Provider, No Known Primary Care Provider [phone] Encounter Details Date Type Department Care Team [...] Description 04/30/2025 3:30 PM EDT Office Visit [facility]NAL MEDICINE [address] [place] [address] 04/30/2025 3:30 PM EDT Appointment [facility] PER DIAG CTR [address] [place] [address] documented as of this encounter Visit Diagnoses Not on filedocumented in this encounter Care Teams Bolt Threader Relationship Specialty Start Date End Date Provider, [place] [address] PCP - General 4/18/24 documented as of this encounter
--- OUTSIDE RECORDS SUMMARY | 2025-04-25 14:14 | XMS_ITS | Encounter Summary ---
Author Organization [facility] Address [address] [place] [address] Care Team Providers Care Email Administrator Name Role Phone Provider, No Known Primary Care Provider [phone] Encounter Details Date Type Department Care Team [...] Description 04/30/2025 3:30 PM EDT Office Visit [facility]NAL MEDICINE [address] [place] [address] 04/30/2025 3:30 PM EDT Appointment [facility] PER DIAG CTR [address] [place] [address] documented as of this encounter Visit Diagnoses Not on filedocumented in this encounter Care Teams Email Administrator Relationship Specialty Start Date End Date Provider, [place] [address] PCP - General 4/18/24 documented as of this encounter
--- OUTSIDE RECORDS SUMMARY | 2025-04-25 14:14 | XMS_ITS | Encounter Summary ---
Author Organization [facility] Address [address] [place] [address] Care Team Providers Care Privacy Analyst Name Role Phone Provider, No Known Primary Care Provider [phone] Encounter Details Date Type Department Care Team [...] HOSPITAL MATERNAL MEDICINE [address] [place] [address] 04/30/2025 3:30 PM EDT Appointment [facility] PER DIAG CTR [address] [place] [address] documented as of this encounter Visit Diagnoses Not on filedocumented in this encounter Care Teams Privacy Analyst Relationship Specialty Start Date End Date Provider, [place] [address] PCP - General 4/18/24 documented as of this encounter
== END 2025-04-25 23:59 | disposition home or self-care (01) ==
LOC: RAD 14:12
PROVIDERS: PCP Nurse Practitioner; Visit Provider Obstetrics & Gynecology
DX: O10.913 Unspecified pre-existing hypertension complicating pregnancy, third trimester (principal); O09.523 Supervision of elderly multigravida, third trimester; O26.23 Pregnancy care for patient with recurrent pregnancy loss, third trimester; Z36.89 Encounter for other specified antenatal screening; Z3A.35 35 weeks gestation of pregnancy
CPT/HCPCS: 76819

== ENCOUNTER 2025-04-27 11:43 | Outpatient (CLI) | payer OTHER, SELFPAY ==
--- OUTSIDE RECORDS SUMMARY | 2025-02-25 14:00 | XMS_ITS | Encounter Summary ---
Author Organization [facility] Address [address] [place] [address] Care Team Providers Care Milker Machine Name Role Phone Provider, No Known Primary Care Provider [phone] Reason for Visit * Diagnostic Imaging (Routine) - Closed Specialty Diagnoses / Procedures Referred By Carolyne diaz Referred To Contact Radiology Diagnoses Abnormal genetic test during Chronic hypertension affecting Procedures [facility] Bentley, Dominick Silva MD [address] [place] [address] Phone: tel: fax: Referral ID Status Reason Start Date Expiration Date Visits Re quested Visits Authorized [id number] Closed 12/30/2024 03/31/2026 4 4 Encounter Details Date Type Department Care Team (Latest Contact Info) Description 02/25/2025 2:00 PM EDT - 02/25/2025 11:59 PM EDT Hospital Encounter [facility] PER DIAG CTR [address] [place] [address] Wilber Bender, [address] [facility] [address] [place] [place] [id number] Discharge Disposition: Home or Self Care Social History Tobacco Use Types Packs/Day Years Used Date Smoking Tobacco: Never Smokeless Tobacco: Never Alcohol Use Standard Drinks/Week Comments Never 0 (1 standard drink = 0.6 oz pur e alcohol) Estimated Date of Delivery Comme nts Yes 05/28/2025 Date entered caio or to episode creation Sex and Gender Information Value Date Recorded Sex Assigned at Not on file Legal Sex Female 3:42 PM EDT Gender Identity Not on file Sexual Orientation Not on file documented as of this encounter Medications at Time of Discharge amLODIPine (NORVASC) 5 MG tablet take 1 tablet (5 mg) by oral route once daily 10/19/2023 aspirin 81 MG EC tablet Take 1 tablet by mouth 2 (Two) Times a Day. famotidine (PEPCID) 40 MG tablet Take 1 tablet by mouth Daily. 10/19/2023 hydrOXYzine (ATARAX) 10 MG tablet Take 1 tablet by mouth Every 6 (Six) Hours. 10/19/2023 labetalol (NORMODYNE) 200 MG tablet Take 1 tablet by mouth 3 times a day. 12/05/2023 omeprazole (priLOSEC) 20 MG capsule Take 1 capsule by mouth Daily. 10/19/2023 Vit-Fe Fumarate-FA ( vitamin 27-0.8) 27-0.8 MG tablet tablet Take 1 tablet by mouth Daily. sertraline (ZOLOFT) 50 MG tablet Take 1 tablet by mouth Daily. 10/19/2023 buPROPion SR (WELLBUTRIN SR) 100 MG 12 hr tablet take 1 tablet (100 mg) by oral route 2 times per day 10/19/2023 03/25/2025 documented as of this encounter Plan of Treatment Upcoming Encounters Date Type Department Care Team (Late st Contact Info) Description 04/30/2025 3:30 PM EDT Office Visit [facility]NAL [facility] [address] [place] [address] 04/30/2025 3:30 PM EDT Appointment [facility] US PER DIAG CTR [address] [place] [id number] documented as of this encounter Procedures Procedure Name Priority Date/Time Associated Diagnosis Comments US [facility] Routine 02/25/2025 2:41 PM EDT Abnormal genetic test during Chronic hypertension affecting documented in this encounter Results * [facility] (02/25/2025 2:41 PM EDT) Anatomical Region Laterality Modality Ultrasound 02/25/2025 2:28 PM EDT Narrative 02/26/2025 10:26 AM EDT PAT NAME: SHIVAM BERNARD [facility] REC#: [id number] DA: [id number] PAT GEND: F PAT TYPE: O EXAM ALIREZA: [id number] REF PHYS WILBER BENDER Comparison Studies The findings of this study are compared to the prior ultrasound study dated 01/27/25 Patient Status Outpatient Indication ======== Abnormal NIPT (high risk triploidy, T13, T18.) AMA. CHTN. Hx preeclampsia & PTD (32 & 35 wk). Obesity BMI 39. Maternal Assessment Height 160 cm Height (ft) 5 ft Height (in) 3 in Weight 102 kg Weight (lb) 225 lb BMI 39.87 kg/m Method ======= Transabdominal ultrasound examination. View: Suboptimal view: limited by position and maternal habitus ========= Black . Number of fetuses: 1 Dating ====== Method of dating: based on stated ARIA GA by prior assessment 26 w + 6 d ARIA by prior assessment: 05/28/2025 Ultrasound examination on: 02/25/2025 GA by U/S based upon: AC, BPD, Femur, HC GA by U/S 26 w + 1 d ARIA by U/S: 06/02/2025 Previous dating: based on stated ARIA, selected on 12/30/2024 Agreed ARIA of previous datin05/28/2025 Assigned: based on stated ARIA, selected on 02/25/2025 Assigned GA 26 w + 6 d Assigned ARIA: 05/28/2025 length 280 d Biometry Standard BPD 66.5 mm 26w 6d 37% Hadlock OFD 82.7 mm 26w 6d 51% Bella HC 242.5 mm 26w 2d 11% Hadlock AC 213.9 mm 25w 6d 16% Hadlock Femur 46.4 mm 25w 3d 6% Hadlock Humerus 41.5 mm 25w 0d 4% Bella HC / AC 1.13 EFW 857 g 25w 4d 10% Hadlock EFW (lb) 1 lb EFW (oz) 14 oz EFW by: Hadlock ([id number]-GF-FL) Extended Cav. septi pel. tr 3.8 mm Tool Salvage Worker 5.2 mm Head / Face / Neck Cephalic index 0.80 69% Nicolaides Heart / Great Vessels Cardiac axis 56 PA main 4.74 mm Rt PA branch 2.55 mm 19% Vin Lt PA branch 2.73 mm 28% Vin Ao asc 3.96 mm Ao isthmus 3.2 mm <1% Vin Ao desc 3.65 mm McGoon Index mod. 1.5 PA main / Ao asc 1.20 IVC 3.19 mm SVC 2.85 mm Extremities / Bony Struc FL / BPD 0.70 FL / HC 0.19 FL / AC 0.22 Other Structures FHR 150 bpm General Evaluation Cardiac activity present. FHR 150 bpm. movements present. Presentation cephalic. Placenta Placental site: anterior. Umbilical cord Cord vessels: 3 vessel cord. Insertion site: placental insertion: normal. Amniotic fluid Amount of AF: normal. MVP 4.4 cm. BHAVYA 14.6 cm. Q1 3.2 cm, Q2 4.4 cm, Q3 3.3 cm, Q4 3.7 cm. Anatomy Cranium: Normal Cavum septi pellucidi: Normal Cerebellum: Normal Cisterna magna: Normal Head / Neck Rt lateral ventricle: Normal Lt lateral ventricle: Normal Lips: Normal Nose: Normal 4-chamber view: Appears normal RVOT view: Appears normal LVOT view: Appears normal Heart / Thorax Aortic arch view: Appears normal Ductal arch view: Appears normal SVC: Appears Normal IVC: Appears Normal 3-vessel view: Appears normal 4-hszuyd-jvscnje view: suboptimal Cardiac axis: Normal Stomach: Normal Kidneys: Normal Bladder: Normal Gender: female Wants to know gender: yes Echocardiogram 2D Echo (Qualitatively) 4-chamber view: Appears normal LVOT view: Appears normal RVOT view: Appears normal 3-vessel view: Appears normal 8-ydfytw-xmkvrrv view: suboptimal Aortic arch view: Appears normal Ductal arch view: Appears normal SVC: Appears Normal IVC: Appears Normal Cardiac axis: Normal Pulmonary veins: suboptimal Right atrium: normal size and morphology Left atrium: normal size and morphology Atrial septum: normal size and morphology Foramen ovale: normal (in the central third/half, flap valve in left atrium) Right ventricle: normal size and morphology Left ventricle: normal size and morphology Ventricular septum: ventricular septum intact (apex to crux) Cross-over gr. arteries: anterior great artery (confirmed to be the pulmonary artery by its branching) which crosses the course of the proximal aorta, indicative of normal relationship of the great arteries Main PA: the main pulmonary artery can be seen bifurcating into the ductus arteriosus and the right pulmonary artery B and M-Mode Measurements Cardiac axis 56 RA length diast 11.28 mm RA width diast 12.71 mm RV length diast 9.90 mm <1% Sancehz RV width diast 10.04 mm 20% Sanchez LA length diast 10.2 mm LA width syst 11.17 mm 47% Sanchez LV length diast 13.58 mm <1% Sanchez LV width diast 9.76 mm 19% Sanchez RV length diast / LV length diast 0.73 IV Septum diast 1.93 mm 4% Sanchez RVOT diam 5.10 mm RVOT area 20.0 mm LVOT diam 4.5 mm LVOT area 16.0 mm PA main 4.74 mm Rt PA branch 2.55 mm 19% Vin Lt PA branch 2.73 mm 28% Vin Ao asc 3.96 mm Ao isthmus 3.2 mm <1% Vin Ao desc 3.65 mm McGoon Index mod. 1.5 PA main / Ao asc 1.20 IVC 3.19 mm SVC 2.85 mm RV width diast Zscore (FL) 0.08 RV width diast Zscore (BPD) -0.05 RV width diast Zscore (GA) -0.18 RV width diast Zscore byAnna Marie Akins LV width diast Zscore (FL) 0.18 LV width diast Zscore (BPD) 0.10 LV width diast Zscore (GA) -0.02 LV width diast Zscore by: Tashi RV inlet Zscore by: Tashi LV inlet Zscore by: Tashi RV area Zscore by: Tashi LV area Zscore by: Tashi TV annulus diast Zscore by: Tashi MV annulus diast Zscore by: Tashi PV annulus syst Zscore by: Tashi AoV annulus syst Z-score by: Tashi PA main Zscore (FL) -0.77 PA main Zscore (BPD) -0.96 PA main Zscore (GA) -0.98 PA main Zscore by: Tashi Ductus arteriosus Zscore by: Tashi Rt PA branch Zscore (FL) -0.43 Rt PA branch Zscore (BPD) -0.47 Rt PA branch Zscore (GA) -0.59 Rt PA branch Zscore by: Tashi Lt PA branch Zscore (FL) 0.37 Lt PA branch Zscore (BPD) 0.36 Lt PA branch Zscore (GA) 0.21 Lt PA branch Zscore by: Tashi Ao asc Zscore (FL) -1.32 Ao asc Zscore (BPD) -1.44 Ao asc Zscore (GA) -1.43 Ao asc Zscore by: Tashi Ao isthmus Zscore (FL) 0.79 Ao isthmus Zscore (BPD) 0.15 Ao isthmus Zscore (GA) -0.03 Ao isthmus Zscore (EFW) 0.84 Ao isthmus Zscore by: Tl Ao desc Zscore (FL) -0.69 Ao desc Zscore (BPD) -0.72 Ao desc Zscore (GA) -0.97 Ao desc Zscore by: Tashi IVC Zscore (FL) 0.40 IVC Zscore (BPD) 0.33 IVC Zscore (GA) 0.24 IVC Zscore by: Tashi Postcardial Spectral Doppler Umbilical A PI 1.14 69% Yang Umbilical A RI 0.70 65% Yang Umbilical A PS -34.11 cm/s Umbilical A ED -10.77 cm/s Umbilical A TAmax -20.95 cm/s Umbilical A MD -10.71 cm/s Umbilical A S / D 3.38 61% Yang Umbilical A HR 152 bpm Speckle Tracking Device/Procedure: Transabdominal ultrasound examination Doppler Arterial Umbilical A PI 1.14 69% Yang Umbilical A RI 0.70 65% Yang Umbilical A PS -34.11 cm/s Umbilical A ED -10.77 cm/s Umbilical A TAmax -20.95 cm/s Umbilical A MD -10.71 cm/s Umbilical A S / D 3.38 61% Yang Umbilical A HR 152 bpm Maternal Structures Uterus / Cervix Approach: Transabdominal Cervical length 37.3 mm Impression Today's exam reveals a SIUP in cephalic presentation with biometry consistent with dates. Limited anatomic survey appears normal including echocardiogram views. The BHAVYA and UA dopplers are normal. Recommendation Follow up 4 weeks Coding ======= Description: 06650-64 Follow Up Ultrasound Description: 01258-11 Echo 2D, heart - initial Description: 19527-57 Doppler echo color flow Description: 67249-12 Doppler Umbilical Artery Computer Systems Engineer: Josephine Gonzales RDMS Physician: Jessica Alejandra MD, FACOG Electronically signed by: Jessica Alejandra MD, FACOG at: 10:26 Procedure Note Jessica Alejandra MD - 02/26/2025 PAT NAME: SHIVAM BERNARD MED REC#: [id number] DA: [id number] PAT GEND: F PAT TYPE: O EXAM ALIREZA: [id number] REF PHYS WILBER BENDER Comparison Studies The findings of this study are compared to the prior ultrasound studydated 01/27/25 Patient Status Outpatient Indication ======== Abnormal NIPT (high risk triploidy, T13, T18.) AMA. CHTN. Hx preeclampsia& PTD (32 & 35 wk). Obesity BMI 39. Maternal Assessment Fniemu594 cm Height (ft)5 ft Height (in)3 in Zymfpq513 kg Weight (lb)225 lb BMI39.87 kg/m Method ======= Transabdominal ultrasound examination. View: Suboptimal view: limited byfetal position and maternal habitus ========= Black . Number of fetuses: 1 Dating ====== Method of dating:based on stated ARIA GA by prior [id number] w + 6 d ARIA by prior assessment:05/28/2025 Ultrasound examination on:02/25/2025 GA by U/S based upon:AC, BPD, Femur, HC GA by U/S26 w + 1 d ARIA by U/S:06/02/2025 Previous dating:based on stated ARIA, selected on 12/30/2024 Agreed ARIA of previous datin05/28/2025 Assigned:based on stated ARIA, selected on 02/25/2025 Assigned GA26 w + 6 d Assigned ARIA:05/28/2025 d Biometry Standard BPD66.5 mm 26w 6d 37% Hadlock OFD82.7 mm 26w 6d 51% Bella HC242.5 mm 26w 2d 11% Hadlock AC213.9 mm 25w 6d 16% Hadlock Femur46.4 mm 25w 3d 6% Hadlock Epkaovo49.5 mm 25w 0d 4% Bella HC / AC1.13 IUR699 g 25w 4d 10% Hadlock EFW (lb)1 lb EFW (oz)14 oz EFW by:Hadlock ([id number]) Extended Cav. septi pel. tr3.8 mm Vp5.2 mm Head / Face / Neck Cephalic index0.80 69% Nicolaides Heart / Great Vessels Cardiac axis56 PA main4.74 mm Rt PA branch2.55 mm 19% Vin Lt PA branch2.73 mm 28% Vin Ao asc3.96 mm Ao isthmus3.2 mm <1% Vin Ao desc3.65 mm McGoon Index mod.1.5 PA main / Ao asc1.20 IVC3.19 mm SVC2.85 mm Extremities / Bony Struc FL / BPD0.70 FL / HC0.19 FL / AC0.22 Other Structures BVZ480 bpm General Evaluation Cardiac activity present. FHR 150 bpm. movements present. Presentation cephalic. Placenta Placental site: anterior. Umbilical cord Cord vessels: 3 vessel cord. Insertion site: placentalinsertion: normal. Amniotic fluid Amount of AF: normal. MVP 4.4 cm. BHAVYA 14.6 cm. Q1 3.2 cm,Q2 4.4 cm, Q3 3.3 cm, Q4 3.7 cm. Anatomy Cranium:Normal Cavum septi pellucidi:Normal Cerebellum:Normal Cisterna magna:Normal Head / Neck Rt lateral ventricle:Normal Lt lateral ventricle:Normal Lips:Normal Nose:Normal 4-chamber view:Appears normal RVOT view:Appears normal LVOT view:Appears normal Heart / Thorax Aortic arch view:Appears normal Ductal arch view:Appears normal SVC:Appears Normal IVC:Appears Normal 3-vessel view:Appears normal 7-flnvfg-sfwbrxh view:suboptimal Cardiac axis:Normal Stomach:Normal Kidneys:Normal Bladder:Normal Gender:female Wants to know gender:yes Echocardiogram 2D Echo (Qualitatively) 4-chamber view:Appears normal LVOT view:Appears normal RVOT view:Appears normal 3-vessel view:Appears normal 2-ycjqhw-smkdlle view:suboptimal Aortic arch view:Appears normal Ductal arch view:Appears normal SVC:Appears Normal IVC:Appears Normal Cardiac axis:Normal Pulmonary veins:suboptimal Right atrium:normal size and morphology Left atrium:normal size and morphology Atrial septum:normal size and morphology Foramen ovale:normal (in the central third/half, flap valve in leftatrium) Right ventricle:normal size and morphology Left ventricle:normal size and morphology Ventricular septum:ventricular septum intact (apex to crux) Cross-over gr. arteries:anterior great artery (confirmed to be thepulmonary artery by its branching) which crosses the course of theproximal aorta, indicative of normal relationship of the great arteries Main PA:the main pulmonary artery can be seen bifurcating into the ductusarteriosus and the right pulmonary artery B and M-Mode Measurements Cardiac axis56 RA length diast11.28 mm RA width diast12.71 mm RV length diast9.90 mm <1% Sanchez RV width diast10.04 mm 20% Sanchez LA length diast10.2 mm LA width syst11.17 mm 47% Sanchez LV length diast13.58 mm <1% Sanchez LV width diast9.76 mm 19% Sanchez RV length diast / LV length diast0.73 IV Septum diast1.93 mm 4% Sanchez RVOT diam5.10 mm RVOT area20.0 mm LVOT diam4.5 mm LVOT area16.0 mm PA main4.74 mm Rt PA branch2.55 mm 19% Vin Lt PA branch2.73 mm 28% Vin Ao asc3.96 mm Ao isthmus3.2 mm <1% Vin Ao desc3.65 mm McGoon Index mod.1.5 PA main / Ao asc1.20 IVC3.19 mm SVC2.85 mm RV width diast Zscore (FL)0.08 RV width diast Zscore (BPD)-0.05 RV width diast Zscore (GA)-0.18 RV width diast Zscore by:Tashi LV width diast Zscore (FL)0.18 LV width diast Zscore (BPD)0.10 LV width diast Zscore (GA)-0.02 LV width diast Zscore by:Tashi RV inlet Zscore by:Tashi LV inlet Zscore by:Tashi RV area Zscore by:Tashi LV area Zscore by:Tashi TV annulus diast Zscore by:Tashi MV annulus diast Zscore by:Tashi PV annulus syst Zscore by:Tashi AoV annulus syst Z-score by:Tashi PA main Zscore (FL)-0.77 PA main Zscore (BPD)-0.96 PA main Zscore (GA)-0.98 PA main Zscore by:Tashi Ductus arteriosus Zscore by:Tashi Rt PA branch Zscore (FL)-0.43 Rt PA branch Zscore (BPD)-0.47 Rt PA branch Zscore (GA)-0.59 Rt PA branch Zscore by:Tashi Lt PA branch Zscore (FL)0.37 Lt PA branch Zscore (BPD)0.36 Lt PA branch Zscore (GA)0.21 Lt PA branch Zscore by:Tashi Ao asc Zscore (FL)-1.32 Ao asc Zscore (BPD)-1.44 Ao asc Zscore (GA)-1.43 Ao asc Zscore by:Tashi Ao isthmus Zscore (FL)0.79 Ao isthmus Zscore (BPD)0.15 Ao isthmus Zscore (GA)-0.03 Ao isthmus Zscore (EFW)0.84 Ao isthmus Zscore by:Tl Ao desc Zscore (FL)-0.69 Ao desc Zscore (BPD)-0.72 Ao desc Zscore (GA)-0.97 Ao desc Zscore by:Tashi IVC Zscore (FL)0.40 IVC Zscore (BPD)0.33 IVC Zscore (GA)0.24 IVC Zscore by:Tashi Postcardial Spectral Doppler Umbilical A PI1.14 69% Yang Umbilical A RI0.70 65% Yang Umbilical A PS-34.11 cm/s Umbilical A ED-10.77 cm/s Umbilical A TAmax-20.95 cm/s Umbilical A MD-10.71 cm/s Umbilical A S / D3.38 61% Yang Umbilical A HR152 bpm Speckle Tracking Device/Procedure:Transabdominal ultrasound examination Doppler Arterial Umbilical A PI1.14 69% Yang Umbilical A RI0.70 65% Yang Umbilical A PS-34.11 cm/s Umbilical A ED-10.77 cm/s Umbilical A TAmax-20.95 cm/s Umbilical A MD-10.71 cm/s Umbilical A S / D3.38 61% Yang Umbilical A HR152 bpm Maternal Structures Uterus / Cervix Approach:Transabdominal Cervical saezsh78.3 mm Impression Today's exam reveals a SIUP in cephalic presentation with biometryconsistent with dates. Limited anatomic survey appears normalincluding echocardiogram views. The BHAVYA and UA dopplers are normal. Recommendation Follow up 4 weeks Coding ======= Description:56531-20 Follow Up Ultrasound Description:64993-21 Echo 2D, heart - initial Description:02013-80 Doppler echo color flow Description:82339-68 Doppler Umbilical Artery Computer Systems Engineer: Josephine Gonzales RDMS Physician: Jessica Alejandra MD, FACOG Electronically signed by: Jessica Alejandra MD, FACOG at: 1110:26 us Dominick Bentley MD IMG US ORDERABLES Final Result documented in this encounter Visit Diagnoses Not on filedocumented in this encounter Care Teams Milker Machine Relationship Specialty Start Date End Date Provider, [place] [address] PCP - General 01/04/24 documented as of this encounter
--- OUTSIDE RECORDS SUMMARY | 2025-03-25 15:00 | XMS_ITS | Encounter Summary ---
Author [facility] Address [address] [place] [address] Care Team Providers Care Line Leader Name Role Phone Provider, No Known Primary Care Provider [phone] Reason for Referral * Diagnostic Imaging (Routine) - Authorized Specialty Diagnoses / Procedures Referred By Contac t Referred To Contact Radiology Diagnoses Chronic hypertension affecting Antepartum multigravida of advanced maternal age Poor growth affecting management of mother in third trimester, single or unspecified fetus Procedures [facility] Dominick Bentley MD [address] [place] [address] Phone: tel: fax: [facility] US PER DIAG CTR [address] [place] [address] Phone: tel: Referral ID Status Reason Start Date Expiration Date V isits Requested Visits Authorized [id number] Authorized 03/25/2025 06/24/2026 3 3 Reason for Visit * Reason Comments ama, CHTN, ABN NIPT Encounter Details Date Type Department Care Team (Late st Contact Info) Description 03/25/2025 3:00 PM EDT Office Visit [facility] MATERNAL MEDICINE [address] [place] [address] Dominick Bentley MD [address] [facility] [address] [place] [address] Poor growth affecting management of mother in [...] given her abnormal NIPT this could be patient registration representative of that testing. As of note [...] that CMV testing was performed with primary [employer] FLAT[employer]ED TRUCK DRIVER and she said that the IgM was positive and that the antibody was high though we do not have records of this. This could be indicative of IgM with high avidity which could be patient registration representative of new infection though patient states [...] given her abnormal NIPT this could be patient registration representative of that testing. As of note [...] that CMV testing was performed with primary [employer] FLATBED TRUCK DRIVER and she said that the IgM was positive and that the antibody was high though we do not have records of this. This could be indicative of IgM with high avidity which could be patient registration representative of new infection though patient states [...] or sooner if clinically indicated. Orders: - [facility]; Standing 2. Chronic hypertension affecting Assessment & Plan: Patient presents for follow-up growth ultrasound secondary to AMA, chronic hypertension, abnormal NIPT. Blood sugar today 127/80. Orders: - [facility]; Standing 3. Antepartum multigravida of advanced maternal age - [facility]; Standing 4. Abnormal genetic test [...] [facility]. Dominick Bentley MD, FACOG Maternal Medicine, [facility] documented in this encounter Plan of Treatment Upcoming Encounters Date Type Department Care Team (Late st Contact Info) Description 04/30/2025 3:30 PM EDT Office Visit [facility] MATERNAL MEDICINE [address] [facility] [address] [place] [address] 04/30/2025 3:30 PM EDT Appointment [facility] US PER DIAG CTR [address] [place] [address] Scheduled Orders Name Type Priority Associated Diagnoses Orde r Schedule [facility] Imaging Routine Chronic hypertension affecting [...] during documented in this encounter Care Teams Line Leader Relationship Specialty Start Date End Date Provider, [place] [address] PCP - General 01/04/24 documented as of this encounter
--- OUTSIDE RECORDS SUMMARY | 2025-03-25 15:00 | XMS_ITS | Encounter Summary ---
Author Organization [facility] Address [address] [place] [address] Care Team Providers Care Senior C Software Developer Name Role Phone Provider, No Known Primary Care Provider [phone] Reason for Visit * Diagnostic Imaging (Routine) - Closed Specialty Diagnoses / Procedures Referred By Carolyne diaz Referred To Contact Radiology Diagnoses Abnormal genetic test during Chronic hypertension affecting Procedures [facility] Bentley, Dominick Silva MD [address] [place] [address] Phone: tel: fax: Referral ID Status Reason Start Date Expiration Date Visits Re quested Visits Authorized [id number] Closed 12/30/2024 03/31/2026 4 4 Encounter Details Date Type Department Care Team (Latest Contact Info) Description 03/25/2025 3:00 PM EDT - 03/25/2025 11:59 PM EDT Hospital Encounter [facility] PER DIAG CTR [address] [place] [address] Wilber Bender, 1210 [facility] [address] [id number] Discharge Disposition: Home or Self Care Social [...] Description 04/30/2025 3:30 PM EDT Office Visit [facility]IC[facility] [address] [facility] [address] [address] [place] [address] 04/30/2025 3:30 PM EDT Appointment [facility] US PER DIAG CTR [address] [place] [address] documented as of this encounter Procedures Procedure Name Priority Date/Time Associated Diagnosis Comments [facility] Routine 03/25/2025 3:56 PM EDT Abnormal genetic test during Chronic hypertension affecting documented in this encounter Results * [facility] (03/25/2025 3:56 PM EDT) Anatomical Region Laterality Modality Ultrasound 03/25/2025 3:25 PM EDT Narrative 03/25/2025 4:18 PM EDT PAT NAME: SHIVAM BERNARD MED REC#: [id number] DA: [id number] PAT GEND: F PAT TYPE: O EXAM ALIREZA: [id number] REF PHYS WILBER BENDER Comparison Studies The [...] EFW (oz) 13 oz EFW by: Hadlock (SNE-DY-OQ-FL) Extended Tibia 45.8 mm 27w 6d 2% Bella Fibula 45.4 mm 28w 1d 15% Bella Foot 57.5 mm 9% Chitty Radius 37.7 mm 26w 2d 14% Bella Ulna 41.3 mm 26w 6d <1% Bella Cav. septi pel. tr 5.5 mm Inspector Open Die 3.8 mm CM 4.7 mm 3% Nicolaides [...] (one being BPP/BHAVYA/UA dopplers). Coding ======= Description: 08713-59 Follow Up Ultrasound Description: 82224-66 BPP without NST Description: 41764-01 Doppler Umbilical Artery Bar Finish Operator: Yoly Choudhary RDMS Physician: Dominick Bentley MD, FACOG Electronically signed by: Dominick Bentley MD, FACOG at: 16:18 Procedure Note Dominick Bentley MD - 03/25/2025 PAT NAME: SHIVAM BERNARD MED REC#: [id number] DA: [id number] PAT GEND: F PAT TYPE: O EXAM ALIREZA: [id number] REF PHYS WILBER BENDER Comparison Studies The findings of this study are compared to the prior ultrasound studydated 02/25/25. Patient Status Outpatient Indication ======== Abnormal NIPT (high risk triploidy, T13, T18.) AMA. CHTN. Hx preeclampsia& PTD (32 & 35 wk). Obesity BMI 39. Maternal Assessment Pbnnnf279 cm Height (ft)5 ft Height (in)3 in Vojioh982 kg Weight (lb)227 lb BMI40.22 kg/m Method ======= Transabdominal ultrasound examination ========= Black . Number of fetuses: 1 Dating ====== GA by prior [id number] w + 6 d ARIA by prior [...] GA30 w + 6 d Assigned ARIA:05/28/2025 [id number] d Biometry Standard BPD74.1 mm 29w 5d 11% Hadlock OFD93.7 mm 30w 2d 33% Bella HC267.1 mm 29w 1d <1% Hadlock Cerebellum tr38.6 mm 31w 3d 48% Hill AC252.3 mm 29w 3d 11% Hadlock Femur51.2 mm 27w 3d <1% Hadlock Opnxuxf14.3 mm 26w 2d <1% Bella HC / AC1.06 EFW1,278 g 28w 3d 3% Hadlock EFW (lb)2 lb EFW (oz)13 oz EFW by:Hadlock (OAO-GY-AR-FL) Extended Tibia45.8 mm 27w 6d 2% Bella Xmnpuk10.4 mm 28w 1d 15% Bella Foot57.5 mm 9% Chitty Ystofu89.7 mm 26w 2d 14% Bella Ulna41.3 mm 26w 6d <1% Bella Cav. septi pel. tr5.5 mm Vp3.8 mm CM4.7 mm 3% Nicolaides Head / Face / Neck Cephalic index0.79 46% Nicolaides Extremities / Bony Struc FL / BPD0.69 FL / HC0.19 FL / AC0.20 Other Structures PNB868 bpm General Evaluation Cardiac activity present. FHR [...] office (one being BPP/BHAVYA/UA dopplers). Coding ======= Description:40457-61 Follow Up Ultrasound Description:99529-66 BPP without NST Description:30126-76 Doppler Umbilical Artery Bar Finish Operator: Yoly Choudhary RDMS Physician: Dominick Bentley MD, FACOG Electronically signed by: Dominick Bentley MD, FACOG at: 16:18 us Dominick Bentley MD IMG US ORDERABLES Final Result documented in this encounter Visit Diagnoses Not on filedocumented in this encounter Care Teams Senior C Software Developer Relationship Specialty Start Date End Date Provider, [place] [address] PCP - General 01/04/24 documented as of this encounter
--- OUTSIDE RECORDS SUMMARY | 2025-04-08 14:33 | XMS_ITS | Encounter Summary ---
Author Organization [facility] Address [address] [place] [address] Care Team Providers Care Auto Dealership Porter Name Role Phone Provider, No Known Primary Care Provider [phone] Reason for Referral * Diagnostic Imaging (Routine) - Closed Specialty Diagnoses / Procedures Referred By Carolyne diaz Referred To Contact Radiology Diagnoses Abnormal genetic test during Chronic hypertension affecting Procedures [facility] Dominick Bentley MD [address] [place] [address] Phone: tel: fax: Referral ID Status Reason Start Date Expiration Date Visits Re quested Visits Authorized [id number] Closed 12/30/2024 03/31/2026 4 4 Reason for Visit * Diagnostic Imaging (Routine) - Closed Specialty Diagnoses / Procedures Referred By Carolyne diaz Referred To Contact Radiology Diagnoses Abnormal genetic test during Chronic hypertension affecting Procedures [facility] [place] Dominick Bentley MD [address] [facility] [address] [place] [address] Phone: tel: fax: Referral ID Status Reason Start Date Expiration Date Visits Re quested Visits Authorized [id number] Closed 12/30/2024 03/31/2026 4 4 Encounter Details Date Type Department Care Team (Late st Contact Info) Description 04/08/2025 2:33 PM EDT - 04/08/2025 11:59 PM EDT Hospital Encounter [facility] [address] [place] [address] Dominick Bentley MD [address] [place], [place] [id number] Abnormal genetic test during ; Chronic hypertension [...] Description 04/30/2025 3:30 PM EDT Office Visit [facility]ICINE [address] [address] [place] [address] 04/30/2025 3:30 PM EDT Appointment [facility] [address] [place] [address] documented as of this encounter Procedures Procedure Name Priority Date/Time Associated Diagnosis Comments [facility] Routine 04/08/2025 3:27 PM EDT Abnormal genetic test during Chronic hypertension affecting documented in this encounter Results * [facility] (04/08/2025 3:27 PM EDT) Anatomical Region Laterality Modality Ultrasound 04/08/2025 3:10 PM EDT Narrative 04/09/2025 12:30 PM EDT PAT NAME: SHIVAM BERNARD MED REC#: [id number] DA: [id number] PAT GEND: F PAT TYPE: O EXAM ALIREZA: [id number] REF PHYS WILBER BHAKTA Comparison Studies The [...] EFW (oz) 14 oz EFW by: Hadlock (FCU-VR-KM-FL) Extended Cav. septi pel. tr 4.9 mm Wetlands Technician 5.2 mm CM 8.0 mm 70% Nicolaides [...] in 3 weeks scheduled Coding ======= Description: 88428-40 Follow Up Ultrasound Description: 64711-17 BPP without NST Description: 07822-09 Doppler Umbilical Artery Modeling Teacher: Josephine Gonzales RDMS Physician: Jessica Alejandra MD, FACOG Electronically signed by: Jessica Alejandra MD, FACOG at: 12:30 Procedure Note Jessica Alejandra MD - 04/09/2025 PAT NAME: SHIVAM BERNARD MED REC#: [id number] DA: [id number] PAT GEND: F PAT TYPE: O EXAM ALIREZA: [id number] REF PHYS WILBER BHAKTA Comparison Studies The findings of this study are compared to the prior ultrasound studydated 03/25/25 Patient Status Outpatient Indication ======== AMA. CHTN. Follow up IUGR. Abnormal NIPT (high risk triploidy, T13, T18.)Hx preeclampsia & PTD (32 & 35 wk). Morbid obesity BMI 40. Maternal Assessment Vmrgea538 cm Height (ft)5 ft Height (in)3 in Upvxik733 kg Weight (lb)227 lb BMI40.22 kg/m Method ======= Transabdominal ultrasound examination. View: Adequate view ========= Black . Number of fetuses: 1 Dating ====== Method of dating:based on stated ARIA GA by prior kquhyutebj40 w + 6 d ARIA by prior assessment:05/28/2025 Ultrasound examination on:04/08/2025 GA by U/S based upon:AC, BPD, Femur, HC GA by U/S31 w + 4 d ARIA by U/S:06/06/2025 Previous dating:based on stated ARIA, selected on 02/25/2025 Agreed ARIA of previous datin05/28/2025 Assigned:based on stated ARIA, selected on 04/08/2025 Assigned GA32 w + 6 d Assigned ARIA:05/28/2025 wriqzn978 d Biometry Standard BPD80.2 mm 32w 1d 24% Hadlock OFD98.4 mm 31w 6d 23% Bella HC287.0 mm 31w 4d 2% Hadlock Cerebellum tr41.5 mm 32w 6d 31% Hill AC273.7 mm 31w 3d 14% Hadlock Femur59.6 mm 31w 0d 5% Hadlock Hlyqpai77.1 mm 30w 6d 13% Bella HC / AC1.05 EFW1,758 g 31w 0d 9% Hadlock EFW (lb)3 lb EFW (oz)14 oz EFW by:Hadlock (RMM-NY-RC-FL) Extended Cav. septi pel. tr4.9 mm Vp5.2 mm CM8.0 mm 70% Nicolaides Head / Face / Neck Cephalic index0.82 66% Nicolaides Extremities / Bony Struc FL / BPD0.74 FL / HC0.21 FL / AC0.22 Other Structures KZX077 bpm General Evaluation Cardiac activity present. FHR [...] growth in 3 weeks scheduled Coding ======= Description:37812-48 Follow Up Ultrasound Description:90474-44 BPP without NST Description:44646-38 Doppler Umbilical Artery Modeling Teacher: Josephine Gonzales RDMS Physician: Jessica Alejandra MD, FACOG Electronically signed by: Jessica Alejandra MD, FACOG at: 2312:30 us Dominick Bentley MD [facility] ORDERABLES Final Result documented in this encounter Visit Diagnoses Diagnosis Abnormal genetic test during Chronic hypertension affecting documented in this encounter Care Teams Auto Dealership Porter Relationship Specialty Start Date End Date Provider, [place] [address] PCP - General 01/04/24 documented as of this encounter
--- OUTSIDE RECORDS SUMMARY | 2025-04-08 14:45 | XMS_ITS | Encounter Summary ---
Author Organization [facility] Address [address] [place] [address] Care Team Providers Care Therapy Site Coordinator Name Role Phone Provider, No Known Primary Care Provider [phone] Reason for Visit * Reason Comments CHTN, AMA, abn NIPT, MO, hx PreE, IUGR Encounter Details Date Type Department Care Team (Late st Contact Info) Description 04/08/2025 2:45 PM EDT Office Visit [facility] [address] [address] Jessica Alejandra MD [address] [id number] Chronic hypertension affecting (Primary Dx); Antepartum multigravida [...] [facility] Jessica Alejandra MD FACOG Maternal Medicine, [facility] 04/08/2025 documented in this encounter Plan of Treatment Upcoming Encounters Date Type Department Care Team (Late st Contact Info) Description 04/30/2025 3:30 PM EDT Office Visit [facility] [address] [facility] [address] [address] [place] [address] 04/30/2025 3:30 PM EDT Appointment [facility] PER DIAG [facility] [address] [place] [address] documented as of this encounter Visit Diagnoses Diagnosis Chronic hypertension affecting - Primary Antepartum multigravida of advanced maternal age Abnormal genetic test during Poor growth affecting management of mother in third trimester, single or unspecified fetus documented in this encounter Care Teams Therapy Site Coordinator Relationship Specialty Start Date End Date Provider, [place] [address] PCP - General 01/04/24 documented as of this encounter
--- OUTSIDE RECORDS SUMMARY | 2025-04-27 11:47 | XMS_ITS | Encounter Summary ---
Author Organization [employer] ([place], [place], [place], [place]) Address [address] [place] [address] Care Team Providers Care Hospice Clinical Marketer Name Role Phone Unavailable Primary Care Provider Unavailabl e Encounter Details Date Type Department Care Team (Late st Contact Info) Description 10/11/2018 Transcribed Document [facility] [place] [facility] [place] [address] ProviderChula MD [address] [place] [address] Social History Tobacco Use Types [...] - Chula ProviderMD - 10/11/2018 8:13 AM CORE DROPPER POLINA Main OR PostOp Summary Primary Physician: JUANY PRICE MD Finalized Date/Time: 10/11/18 13:49:18 Pt. Name: SHIVAM BERNARDO.B./Sex: 1985 Female Med Rec #: [id number] Physician: JUANY PRICE MD Financial #: [id number] Pt. Type: O Room/Bed: [facility] Admit/Disch: 10/11/18 04:54:00 - Institution: [facility] [place] PostOp Case Times Entry 1 In PACU II 10/11/18 11:36:00 Ready for PACU II 10/11/18 13:44:00 Discharge Discharge from PACU 10/11/18 13:44:00 II Last Modified By: Elba Ram Rn 10/11/18 13:49:17 S[facility]ole Main OR PostOp Case Times Audit 10/11/18 13:49:17 Commutator Undercutter: STEPH Modifier: STEPH <+> 1 Ready for PACU II Discharge <+> 1 Discharge from PACU II Finalized By: Elba Ram, Rn Document Signatures Signed By: Elba Ram Rn 10/11/18 13:49 Electronically signed by Hanane [facility] Conversion Manager Corporate Strategy Cerner at 01/06/2023 5:02 PM CDT documented in this encounter Plan of Treatment Not on file documented as of this encounter Visit Diagnoses Not on filedocumented in this encounter
--- OUTSIDE RECORDS SUMMARY | 2025-04-27 11:47 | XMS_ITS | Encounter Summary ---
Author Organization [facility] Address [address] [place] [address] Care Team Providers Care Food And Beverage Assistant Manager Name Role Phone Provider, No Known Primary Care Provider [phone] Encounter Details Date Type Department Care Team [...] Description 04/30/2025 3:30 PM EDT Office Visit [facility] MEDICINE [address] [place] [address] 04/30/2025 3:30 PM EDT Appointment [facility] [address] [place] [address] documented as of this encounter Visit Diagnoses Not on filedocumented in this encounter Care Teams Food And Beverage Assistant Manager Relationship Specialty Start Date End Date Provider, [place] [address] PCP - General 4/18/24 documented as of this encounter
--- OUTSIDE RECORDS SUMMARY | 2025-04-27 11:47 | XMS_ITS | Encounter Summary ---
Author Organization [employer] ([place], [place], [place], [place]) Address [address] [place] [address] Care Team Providers Care Student Recruiter Name Role Phone Unavailable Primary Care Provider Unavailabl e Encounter Details Date Type Department Care Team (Late st Contact Info) Description 09/27/2018 Transcribed Document [facility] [place] [facility] [place] [address] ProviderChula MD [address] [place] [address] Social History Tobacco Use Types [...] - Chula ProviderMD - 09/27/2018 10:11 AM NEW ORDER CLERK PAT Adult Entered On: 09/27/2018 10:15 EST Performed On: 09/27/2018 10:11 EST by Veornica Marin RN Vital Measurements Temperature Source : [...] Source : Stated Height Entry Format : [place] Height, Feet : 5 ft(Converted to: 152 cm, 60 Inch) Height, Inches : 4 Inch(Converted to: 0 ft 4 Inch, 10.16 cm) Clinical Height : 162.56 cm Weight Source : Standing scale Weight Entry Format : [place] Clinical Dosing Weight : 88.18 kg Weight, Pounds : 194 lb Body Surface Area (BSA) : 1.93 m2 Body Mass Index : 33.4 kg/m2 (HI) [place] Body Weight : 54 kg Veronica Marin [...] Independent (2) Feeding : Independent (2) Veronica Marni RN - 09/27/2018 10:11 EST ADL Index [...] Obtained From : Patient Primary Language : Ukrainian Preferred Communication Mode : Verbal Communication Barrier [...]
--- OUTSIDE RECORDS SUMMARY | 2025-04-27 11:47 | XMS_ITS | Encounter Summary ---
Author Organization [employer] ([place], [place], [place], [place]) Address [address] [place] [address] Care Team Providers Care Syrup Mixer Assistant Name Role Phone Unavailable Primary Care Provider Unavailabl e Encounter Details Date Type Department Care Team (Late st Contact Info) Description 09/27/2018 Transcribed Document [facility] [place] [facility] [place] [address] ProviderChula MD [address] [place] [address] Social History Tobacco Use Types [...] - Chula ProviderMD - 09/27/2018 10:30 AM CONTACT LENS POLISHER Patient: SHIVAM BERNARD Age: 33 Years Sex: [...]
--- OUTSIDE RECORDS SUMMARY | 2025-04-27 11:47 | XMS_ITS | Clinical Summary ---
Author Organization [facility] Address [address] [place] [address] Care Team Providers Care Flat Cutter Name Role Phone Rosemary Fuller Primary Care [...] Tdap) 09/12/2023 09/12/2013 Colonoscopy 12/29/2023 12/29/2021, 11/13/2019 [id number] Vaccine (1 - season) 2024 UKY-Depression Screening [...] RN Endo Nurse Roberto Carlos Davis CRNA VICE PRESIDENT OF RECRUITING, No role selected Kell Carrera RN Endo Nurse Mady Alvarez Endo Nurse James Morales MD Anesthesiologist MD Daniel Dinero MD Proceduralist Nut Tightener Unknown Endo Nurse 1 Endo Nurse Preprocedure [...] of bowel preparation was evaluated using the Clarion Bowel Preparation Scale with scores of: right [...] were documented in this log. Findings Healthy [id number] ileocolonic anastomosis with no bleeding The rectum [...] <6.0% Children and Adolescents <7.5% . Source: [employer]. Standards of medical care in [...] [facility] MEDICAID Care Teams Flat Cutter Relationship Specialty Start Date End Date Rosemary Fuller PA [address] [place] [address] [place] [address] PCP - General 01/29/21
--- OUTSIDE RECORDS SUMMARY | 2025-04-27 11:47 | XMS_ITS | Clinical Summary ---
Author Organization [employer] ([place], [place], [place], [place]) Address [address] [place] [address] Care Team Providers Care Customer Service Sales Consultant Name Role Phone Unavailable Primary [...]
--- OUTSIDE RECORDS SUMMARY | 2025-04-27 11:47 | XMS_ITS | Encounter Summary ---
Author Organization [employer] ([place], [place], [place], [place]) Address [address] [place] [address] Care Team Providers Care Sample Steamer Name Role Phone Unavailable Primary Care Provider Unavailabl e Encounter Details Date Type Department Care Team (Late st Contact Info) Description 10/11/2018 Transcribed Document [facility] [place] [facility] [place] [address] ProviderChula MD [address] [place] [address] Social History Tobacco Use Types Packs/Day Years Used Date Smoking Tobacco: Never Assessed Comments Unknown Sex and Gender Information Value Date Recorded Sex Assigned at Female 03/15/2022 8:26 PM CDT Legal Sex Female 8:26 PM CDT Gender Identity Female 03/15/2022 8:26 PM CDT Sexual Orientation Not on file documented as of this encounter Miscellaneous Notes * Cerner Conversion Note - Cuhla ProviderMD - 10/11/2018 8:13 AM TAXI DRIVER POLINA Main OR PreOp Summary Primary Physician: JUANY PRICE MD Finalized Date/Time: 10/11/18 10:17:21 Pt. Name: SHIVAM BERNARD D.O.B./Sex: 1985 Female Med Rec #: [id number] Physician: JUANY PRICE MD Financial #: [id number] Pt. Type: O Room/Bed: [facility] Admit/Disch: 10/11/18 04:54:00 - [place] [facility] [place] PreOp Case Times Entry 1 In Preop 10/11/18 05:30:00 Ready for Holding n/a Room Patient Ready for 10/11/18 06:47:00 Surgery Patient Out of Preop 10/11/18 07:35:00 Patient Out of n/a Holding Room Last Modified By: CYNDI LEONARD 10/11/18 10:17:20 [facility] PreOp Case Times Audit 10/11/18 10:17:20 Production Shift Supervisor: MANDOINMARCK Modifier: [email or web address] <+> 1 Patient Out of Preop 10/11/18 06:47:33 Production Shift Supervisor: CRAINMA Modifier: CRAINMA <+> 1 Patient Ready for Surgery Finalized By: CYNDI LEONARD Document Signatures Signed By: CYNDI LEONARD 10/11/18 10:17 documented in this encounter Plan of Treatment Not on file documented as of this encounter Visit Diagnoses Not on filedocumented in this encounter
--- OUTSIDE RECORDS SUMMARY | 2025-04-27 11:47 | XMS_ITS | Encounter Summary ---
Author Organization [employer] ([place], [place], [place], [place]) Address [address] [place] [address] Care Team Providers Care Rn Transition Name Role Phone Unavailable Primary Care Provider Unavailabl e Encounter Details Date Type Department Care Team (Late st Contact Info) Description 10/11/2018 Transcribed Document [facility] [place] [facility] [place] [address] ProviderChula MD [address] [place] [address] Social History Tobacco Use Types [...] - Historical ProviderMD - 10/11/2018 6:12 AM PRODUCTION EXPEDITER Pediatric Growth Entered On: 10/11/2018 6:12 EST Performed On: 10/11/2018 6:12 EST by Michelle Le Patient Nurses Assistant Height and Weight, Clinical Dosing Height Source : Stated Height Entry Format : [place] Height, Feet : 5 ft(Converted to: 152 cm, 60 Inch) Height, Inches : 4 Inch(Converted to: 0 ft 4 Inch, 10.16 cm) Clinical Height : 162.56 cm Weight Source : Standing scale Weight Entry Format : [place] Clinical Dosing Weight : 87.73 kg Weight, Pounds : 193 lb Body Surface Area (BSA) : 1.93 m2 Body Mass Index : 33.2 kg/m2 (HI) Jeremiah Body Weight : 54 kg Michelle Le Patient Nurses Assistant - 10/11/2018 6:12 EST Electronically signed by Hanane [facility] Conversion Family Protection Specialist Cerner at 01/06/2023 5:04 PM CDT documented in this encounter Plan of Treatment Not on file documented as of this encounter Visit Diagnoses Not on filedocumented in this encounter
--- OUTSIDE RECORDS SUMMARY | 2025-04-27 11:47 | XMS_ITS | Encounter Summary ---
Author Organization [employer] ([place], [place], [place], [place]) Address [address] [place] [address] Care Team Providers Care Bag Machine Helper Name Role Phone Unavailable Primary Care Provider Unavailabl e Encounter Details Date Type Department Care Team (Late st Contact Info) Description 10/11/2018 Transcribed Document [facility] [place] [facility] [place] [address] ProviderChula MD [address] [place] [...] - Historical ProviderMD - 10/11/2018 7:31 AM ALUMINUM WELDER Event Note Entered On: 10/11/2018 7:33 EST [...]
--- OUTSIDE RECORDS SUMMARY | 2025-04-27 11:47 | XMS_ITS | Encounter Summary ---
Author Organization [employer] ([place], [place], [place], [place]) Address [address] [place] [address] Care Team Providers Care Practicing Md Anesthesiologist Name Role Phone Unavailable Primary Care Provider Unavailabl e Encounter Details Date Type Department Care Team (Late st Contact Info) Description 10/11/2018 Transcribed Document [facility] [place] [facility] [place] [address] ProviderChula MD [address] [place] [address] Social History Tobacco Use Types [...] - Chula ProviderMD - 10/11/2018 9:28 AM STRATEGIC MANAGER DATE OF PROCEDURE: 10/11/2018 ORTHOPEDIC OPERATIVE NOTE PREOPERATIVE DIAGNOSIS(ES): Right L5-S1 herniated nucleus pulposus. POSTOPERATIVE DIAGNOSIS(ES): Right L5-S1 herniated nucleus pulposus. PROCEDURE: Right L5-S1 microdiscectomy, CPT code-66903. SURGEON: Chase Recinos MD SLIP COVER MAKER: Benjy. COMPLICATIONS: None. SPECIMENS: None. IMPLANTS: None. ESTIMATED BLOOD LOSS: 25 mL. DESCRIPTION OF PROCEDURE: Patient was identified in the holding area at [facility], transferred to the operative room [...]
--- OUTSIDE RECORDS SUMMARY | 2025-04-27 11:47 | XMS_ITS | Encounter Summary ---
Author Organization [employer] ([place], [place], [place], [place]) Address [address] [place] [address] Care Team Providers Care Plunger Shovel Operator Name Role Phone Unavailable Primary Care Provider Unavailabl e Encounter Details Date Type Department Care Team (Late st Contact Info) Description 10/11/2018 Transcribed Document [facility] [place] [address] ProviderChula MD [address] [place] [address] Social History Tobacco Use Types [...] - Historical ProviderMD - 10/11/2018 6:33 AM SALT MACHINE OPERATOR Pre Procedure Adult Entered On: 10/11/2018 6:47 EST Performed On: 10/11/2018 6:33 EST by Naa Alonso Nurse - denise Height and Weight, Clinical Dosing Height Source : Stated Height Entry Format : [place] Height, Feet : 5 ft(Converted to: 152 cm, 60 Inch) Height, Inches : 4 Inch(Converted to: 0 ft 4 Inch, 10.16 cm) Clinical Height : 162.56 cm Weight Source : Standing scale Weight Entry Format : [place] Clinical Dosing Weight : 87.73 kg Weight, Pounds : 193 lb Body Surface Area (BSA) : 1.93 m2 Body Mass Index : 33.2 kg/m2 (HI) [place] Body Weight : 54 kg Naa Alonso [...] Obtained From : Patient Primary Language : Turkish Preferred Communication Mode : Verbal Communication Barrier [...] Scale Risk Level : 0-24 Low Risk Glidden Fall Interventions : Adequate lighting, Call device [...]
--- OUTSIDE RECORDS SUMMARY | 2025-04-27 11:47 | XMS_ITS | Encounter Summary ---
Author Organization [employer] ([place], [place], [place], [place]) Address [address] [place] [address] Care Team Providers Care Accounting File Clerk Name Role Phone Unavailable Primary Care Provider Unavailabl e Encounter Details Date Type Department Care Team (Late st Contact Info) Description 10/11/2018 Transcribed Document [facility] [place] [facility] [place] [address] ProviderChula MD [address] [place] [address] Social History Tobacco Use Types [...] - Historical ProviderMD - 10/11/2018 8:12 AM TRUCK HOP Peripheral Nerve Block Entered On: 10/11/2018 8:13 [...] - 10/11/2018 8:12 EST Electronically signed by [facility] Conversion Granulator Machine Operator Cerner at 01/06/2023 4:48 PM CDT documented in this encounter Plan of Treatment Not on file documented as of this encounter Visit Diagnoses Not on filedocumented in this encounter
--- OUTSIDE RECORDS SUMMARY | 2025-04-27 11:47 | XMS_ITS | Encounter Summary ---
Author Organization [employer] ([place], [place], [place], [place]) Address [address] [place] [address] Care Team Providers Care Reception Name Role Phone Unavailable Primary Care Provider Unavailabl e Encounter Details Date Type Department Care Team (Late st Contact Info) Description 10/11/2018 Transcribed Document [facility] [place] [facility] [place] [address] ProviderChula MD [address] [place], [place] [id number] Social History Tobacco Use Types Packs/Day Years [...] - Historical ProviderMD - 10/11/2018 7:35 AM WRAPPER OFF Event Note Entered On: 10/11/2018 7:37 EST [...]
--- OUTSIDE RECORDS SUMMARY | 2025-04-27 11:47 | XMS_ITS | Clinical Summary ---
Author Organization [facility] Address [address] [place] [address] Care Team Providers Care Pressing Machine Tender Name Role Phone Provider, No Known Primary Care Provider [phone] Allergies No known active allergies Medications amLODIPine [...] her abnormal NIPT this could be inside technical sales representative of that testing. As of [...] that CMV testing was performed with primary ELECTRON TUBE ASSEMBLER and she said that the IgM was positive and that the antibody was high though we do not have records of this. This could be indicative of IgM with high avidity which could be inside technical sales representative of new infection though patient [...] [facility] [address] [facility] [address] [place] [phone] Jessica Alejandra MD Chronic hypertension affecting (Primary Dx); Antepartum multigravida of advanced maternal age; Abnormal genetic test during ; Poor growth affecting management of mother in third trimester, single or unspecified fetus 04/08/2025 2:33 PM EDT - 04/08/2025 11:59 PM EDT Hospital Encounter [facility] [address] [place] [phone] Dominick Bentley MD Abnormal genetic test during ; Chronic hypertension affecting Discharge Disposition: Home or Self Care 04/08/2025 Travel 03/25/2025 3:00 PM EDT Office Visit [facility] [address] [facility] [address] [place] [phone] Dominick Bentley MD Poor growth affecting management of mother in third trimester, single or unspecified fetus (Primary Dx); Chronic hypertension affecting ; Antepartum multigravida of advanced maternal age; Abnormal genetic test during 03/25/2025 3:00 PM EDT - 03/25/2025 11:59 PM EDT Hospital Encounter [facility] [address] [place] [address] Wilber Bneder DO Discharge Disposition: Home or Self Care 03/25/2025 Travel 02/25/2025 2:15 PM EDT Office Visit [facility] [address] [phone] Jessica Alejandra MD Antepartum multigravida of advanced maternal age (Primary Dx); Chronic hypertension affecting 02/25/2025 2:00 PM EDT - 02/25/2025 11:59 PM EDT Hospital Encounter [facility] [address] [place] [phone] Wilber Bender, DO Discharge Disposition: Home or Self Care 02/25/2025 Travel 01/27/2025 3:00 PM EDT Office Visit [facility] MAT[facility] MEDICINE [address] [phone] Lois Agarwal MD Abnormal genetic test during (Primary Dx); Chronic hypertension affecting ; History of recurrent miscarriages; H/O delivery, currently ; Antepartum multigravida of advanced maternal age; 22 weeks gestation of 01/27/2025 2:29 PM EDT - 01/27/2025 11:59 PM EDT Hospital Encounter [facility] [address] [place] [phone] Wilber Bender, Discharge Disposition: Home or Self [...] [facility] [address] [facility] [address] [place] [phone] 04/30/2025 3:30 PM EDT [facility]ointment [facility] [address] [facility] [place] [phone] Health Maintenance Due Date Last Done Comments [...] Abnormal genetic test during Chronic hypertension affecting [facility] Routine 01/27/2025 3:12 PM EDT Abnormal genetic test during Chronic hypertension affecting HEMOGLOBIN A1C Routine 01/08/2024 8:54 AM EDT Blighted ovum from Last 3 Months or Most Recently Relevant to Health Maintenance Results * [facility] (04/08/2025 3:27 PM EDT) Only the most recent of4 resultswithin the time period is included. Anatomical Region Laterality Modality Ultrasound 04/08/2025 3:10 PM EDT Narrative 04/09/2025 12:30 PM EDT PAT NAME: SHIVAM BERNARD MED REC#: [id number] DA: [id number] PAT GEND: F PAT TYPE: O EXAM ALIREZA: [id number] REF PHYS WILBER BENDER Comparison Studies The [...] EFW (oz) 14 oz EFW by: Hadlock ([id number]) Extended Cav. septi pel. tr 4.9 mm Service Line Layer 5.2 mm CM 8.0 mm 70% [...] in 3 weeks scheduled Coding ======= Description: 35022-60 Follow Up Ultrasound Description: 18680-93 BPP without NST Description: 28712-68 Doppler Umbilical Artery Analytical Chemistry Teacher: Josephine Gonzales RDMS Physician: Jessica Alejandra MD, FACOG Electronically signed by: Jessica Alejandra MD, FACOG at: 12:30 Procedure Note Jessica Alejandra MD - 04/09/2025 PAT NAME: SHIVAM BERNARD MED REC#: [id number] DA: [id number] PAT GEND: F PAT TYPE: O EXAM ALIREZA: [id number] REF PHYS WILBER BENDER Comparison Studies The findings of this study are compared to the prior ultrasound studydated 03/25/25 Patient Status Outpatient Indication ======== AMA. CHTN. Follow up IUGR. Abnormal NIPT (high risk triploidy, T13, T18.)Hx preeclampsia & PTD (32 & 35 wk). Morbid obesity BMI 40. Maternal Assessment Bcfhbj792 cm Height (ft)5 ft Height (in)3 in Qasjkl111 kg Weight (lb)227 lb BMI40.22 kg/m Method [...] GA32 w + 6 d Assigned ARIA:05/28/2025 [id number] d Biometry Standard BPD80.2 mm 32w 1d 24% Hadlock OFD98.4 mm 31w 6d 23% Bella HC287.0 mm 31w 4d 2% Hadlock Cerebellum tr41.5 mm 32w 6d 31% Hill AC273.7 mm 31w 3d 14% Hadlock Femur59.6 mm 31w 0d 5% Hadlock Wzpwjut33.1 mm 30w 6d 13% Bella HC / AC1.05 EFW1,758 g 31w 0d 9% Hadlock EFW (lb)3 lb EFW (oz)14 oz EFW by:Hadlock (XRP-HB-[id number]-FL) Extended Cav. septi pel. tr4.9 mm Vp5.2 mm CM8.0 mm 70% Nicolaides Head / Face / Neck Cephalic index0.82 66% Nicolaides Extremities / Bony Struc FL / BPD0.74 FL / HC0.21 FL / AC0.22 Other Structures SSB239 bpm General Evaluation Cardiac activity present. FHR [...] growth in 3 weeks scheduled Coding ======= Description:12244-15 Follow Up Ultrasound Description:47308-35 BPP without NST Description:54719-24 Doppler Umbilical Artery Analytical Chemistry Teacher: Josephine Gonzales RDMS Physician: Jessica Alejandra [...] 01/08/2024 8:54 AM EDT 01/08/2024 Narrative [facility] ([facility] - 01/09/2024 8:16 AM EDT Performed at: [address] [place] [id number] Backer Up: Kevin Staley MD, Phone: [phone] Patient Fasting: N Caleb Alves MD LAB BLOOD ORDERABLES Fin al Result [facility] ([facility]UL[facility]) [address] [place] [address], [place] [phone] [facility] [address] [place] [address], [place] [phone] from Last 3 Months or Most Recently Relevant to Health Maintenance Insurance [facility] Care Teams Pressing Machine Tender Relationship Specialty Start Date End Date Provider, [place] [address] PCP - General 01/04/24
--- OUTSIDE RECORDS SUMMARY | 2025-04-27 11:47 | XMS_ITS | Encounter Summary ---
Author Organization [employer] ([place], [place], [place], [place]) Address [address] [place] [address] Care Team Providers Care Degreasing Solution Reclaimer Name Role Phone Unavailable Primary Care Provider Unavailabl e Encounter Details Date Type Department Care Team (Late st Contact Info) Description 10/11/2018 Transcribed Document [facility] [place] Family Medicine [facility] [place] [address] ProviderChula MD [address] [place] [address] Social History Tobacco Use Types [...] - Chula ProviderMD - 10/11/2018 8:13 AM SHIFT LAB TECHNICIAN E Main OR PACU Summary Primary Physician: JUANY PRICE MD Finalized Date/Time: 10/11/18 11:43:57 Pt. Name: SHIVAM BERNARD D.O.B./Sex: 1985 Female Med Rec #: [id number] Physician: JUANY PRICE MD Financial #: [id number] Pt. Type: O Room/Bed: [facility] Admit/Disch: 10/11/18 04:54:00 - Institution[place] [facility] [place] PACU Case Times Entry 1 [...] 10/11/18 11:[address] Hanane [facility] Conversion Footwear Production Machine Operator Cerner at 01/06/2023 4:48 PM CDT documented in this encounter Plan of Treatment Not on file documented as of this encounter Visit Diagnoses Not on filedocumented in this encounter
--- OUTSIDE RECORDS SUMMARY | 2025-04-27 11:47 | XMS_ITS | Referral Summary ---
Author Organization [employer] ([place], [place], [place], [place]) Address [address] [place] [address] Care Team Providers Care Can Tender Name Role Phone Unavailable Primary Care [...]
--- OUTSIDE RECORDS SUMMARY | 2025-04-27 11:47 | XMS_ITS | Encounter Summary ---
Author Organization [facility] Address [address] [place] [address] Care Team Providers Care Outside Plant Field Engineer Name Role Phone Provider, No Known Primary Care Provider [phone] Encounter Details Date Type Department Care Team [...] [facility] MAT[facility]NAL MEDICINE [address] [place] [address] 04/30/2025 3:30 PM EDT Appointment [facility] [address] [place] [address] documented as of this encounter Visit Diagnoses Not on filedocumented in this encounter Care Teams Outside Plant Field Engineer Relationship Specialty Start Date End Date Provider, [place] [address] PCP - General 4/18/24 documented as of this encounter
--- OUTSIDE RECORDS SUMMARY | 2025-04-27 11:47 | XMS_ITS | Encounter Summary ---
Author Organization [employer] ([place], [place], [place], [place]) Address [address] [place] [address] Care Team Providers Care Surgeon Assistant Name Role Phone Unavailable Primary Care Provider Unavailabl e Encounter Details Date Type Department Care Team (Late st Contact Info) Description 10/11/2018 Transcribed Document [facility] Family Medicine [facility] [place] [address] ProviderChula MD [address] [place] [address] Social History Tobacco Use Types [...] - Chula ProviderMD - 10/11/2018 8:13 AM INFANTRY UNIT LEADER POLINA Main OR IntraOp Summary Primary Physician: JUANY PRICE MD Finalized Date/Time: 10/11/18 09:39:55 Pt. Name: SUNIL BERNARDLONNIE Acevedo /Sex: 1985 Female Med Rec #: [id number] Physician: JUANY PRICE MD Financial #: [id number] Pt. Type: O Room/Bed: [facility] Admit/Disch: 10/11/18 04:54:00 - Institution: [facility]Op Case Attendance Entry 1 Entry 2 Entry 3 Case Attendee JUANY PRICE MD BRUNNER, RICHARD V, Chelsey Bran Rn-Surgery Role Performed Surgeon/Proceduralist, SCHOOL CLEANER/Nurse Basket Hand Braider Custom Grinder, First First Time In 10/11/18 07:39:00 10/11/18 [...] BRUNER, HAVEN Role Performed Scrub, First Physician election assistant Cardiology Nurse Time In 10/11/18 07:39:00 10/11/18 07:39:00 10/11/18 07:39:00 Time Out 10/11/18 09:33:00 10/11/18 09:33:00 10/11/18 09:33:00 Procedure Lumbar Microdiscectomy Lumbar Microdiscectomy Lumbar Microdiscectomy Other Attendee Superficial Wound Closed By: Last Modified By: Chelsey Mae Demike, Cynthia Y, Demike, Cynthia Y, Rn-Surgery 10/11/18 Rn-Surgery 10/11/18 Rn-Surgery 10/11/18 09:33:47 09:33:47 09:33:47 Entry 7 Entry 8 Case Attendee FABIAN CRUZ, RN [address] Role Performed Custom Grinder, Second Scrub, Second Time In 10/11/18 08:48:00 10/11/18 09:02:00 Time Out 10/11/18 09:02:00 10/11/18 09:33:00 Procedure Lumbar Microdiscectomy Lumbar Microdiscectomy Other Attendee Superficial Wound Closed By: Last Modified By: Chelsey Mae Demike, Cynthia Y, Rn-Surgery 10/11/18 Rn-Surgery 10/11/18 09:33:47 09:33:47 [facility] IntraOp Case Attendance Audit 10/11/18 09:33:47 Fiber Optics Supervisor: [id number] Modifier: [id number] 1 <*> Procedure Lumbar Microdiscectomy 2 <+> [...] 8 <*> Procedure Lumbar Microdiscectomy 10/11/18 09:21:03 Fiber Optics Supervisor: [id number] Modifier: [id number] 1 <+> Time Out 1 <*> Procedure Lumbar Microdiscectomy 10/11/18 09:04:27 Fiber Optics Supervisor: [id number] Modifier: [id number] <+> 1 Procedure 2 <*> Procedure Lumbar Microdiscectomy 3 <*> Procedure Lumbar Microdiscectomy 4 <*> Procedure Lumbar Microdiscectomy 5 <*> Procedure Lumbar Microdiscectomy 6 <*> Procedure Lumbar Microdiscectomy 7 <*> Procedure Lumbar Microdiscectomy 8 <*> Procedure Lumbar Microdiscectomy 10/11/18 09:04:05 Fiber Optics Supervisor: [id number] Modifier: [id number] <+> 7 Case Attendee <+> 7 Role Performed <+> 7 Time In <+> 7 Time Out <+> 7 Procedure <+> 8 Case Attendee <+> 8 Role Performed <+> 8 Time In <+> 8 Procedure 10/11/18 08:29:38 Fiber Optics Supervisor: [id number] Modifier: [id number] <*> Procedure Lumbar Microdiscectomy 3 <*> Procedure Lumbar Microdiscectomy 4 <*> Procedure Lumbar Microdiscectomy 5 <*> Procedure Lumbar Microdiscectomy 6 <+> Time In 6 <*> Procedure Lumbar Microdiscectomy 10/11/18 08:24:25 Fiber Optics Supervisor: [id number] Modifier: [id number] 2 <*> Procedure Lumbar Microdiscectomy 3 <*> Procedure Lumbar Microdiscectomy 4 <*> Procedure Lumbar Microdiscectomy 5 <+> Time In 5 <*> Procedure Lumbar Microdiscectomy <+> 6 Case Attendee <+> 6 Role Performed <+> 6 Procedure 10/11/18 08:13:49 Fiber Optics Supervisor: [id number] Modifier: [id number] <+> 1 Time In 2 <+> Time [...] [facility] IntraOp Case Times Audit 10/11/18 09:33:44 Fiber Optics Supervisor: [id number] Modifier: [id number] <+> 1 Out Room Time <+> 1 Stop Time 10/11/18 09:33:20 Fiber Optics Supervisor: [id number] Modifier: [id number] <+> 1 Stop Time 10/11/18 08:13:56 Fiber Optics Supervisor: [id number] Modifier: [id number] <+> 1 Start Time [facility] IntraOp Cautery [...] 08:35:57 [facility] IntraOp Cautery Audit 10/11/18 08:35:57 Fiber Optics Supervisor: [id number] Modifier: [id number] 1 <*> Grounding Pad Site Right Lower [...] [facility] IntraOp Counts Final Audit 10/11/18 09:21:17 Fiber Optics Supervisor: [id number] Modifier: [id number] 1 <*> Procedure Lumbar Microdiscectomy 1 <+> [...] Rn-Surgery 10/11/18 08:26:46 [facility] IntraOp General Case Prefitter 1 Case Information OR OR 01 SJE [...] Avitene 1Gm powder - Marcaine 0.25% 30ml [id number] vial - [id number] Combo Med List Time Administered Route of [...] Intra Op Sign Out Audit 10/11/18 09:39:50 Fiber Optics Supervisor: [id number] Modifier: [id number] <+> 1 RN Sign Out Signature Date/Time [...] [facility] IntraOp Surgical Procedures Audit 10/11/18 09:33:24 Fiber Optics Supervisor: [id number] Modifier: [id number] 1 <*> Procedure Lumbar Microdiscectomy 1 <+> Stop 10/11/18 09:21:35 Fiber Optics Supervisor: [id number] Modifier: [id number] 1 <*> Procedure Lumbar Microdiscectomy 1 <+> Specialty 10/11/18 09:04:26 Fiber Optics Supervisor: [id number] Modifier: [id number] <+> 1 Primary Procedure <+> 1 Primary Surgeon <+> 1 Start <+> 1 Wound Class <+> 1 Anesthesia Type <+> 1 Additional Procedure Description [facility] IntraOp Temp Regulation Devices Entry 1 Temp Regulation Temperature Forced Air Warming Regulation Device device Temperature Upper body Regulation Site Temperature Device 43 Setting Temperature CARLTON HARKINS V SCHOOL CLEANER Regulation Device Applied by Last Modified By: [...] [facility] IntraOp Time Out Audit 10/11/18 08:33:51 Fiber Optics Supervisor: [id number] Modifier: [id number] 1 <+> Beta Thalia Administered 1 <+> [...] Rn-Surgery 10/11/18 09:39 Electronically signed by [facility] Conversion Veterinary Microbiologist Cerner at 01/06/2023 4:42 PM CDT documented in this encounter Plan of Treatment Not on file documented as of this encounter Visit Diagnoses Not on filedocumented in this encounter
[2025-04-27 11:56] VITALS: BP 159/84; PULSE 80; RESP 18; TEMP 36.9; O2SAT 96; BMI 39.1; BMI 39.3
[2025-04-27 12:07] LABS: Microscopic, Urine URINE MICROSCOPIC (MICROSCOPIC)
[2025-04-27 12:11] LABS: Bilirubin,Urine Negative (Negative); Color,Urine YELLOW (Yellow); Glucose,Urine (UA) Negative (Negative); Ketones,Urine Negative (Negative); Leukocyte Esterase,Urine Negative (Negative); PH,Urine 6.5 (5.0-8.5); Protein,Urine Negative (Negative); Specific Gravity, Urine 1.015 (1.005-1.030); Urobilinogen,Urine 0.2 EU/dl (0.2)
[2025-04-27 12:16] LABS: Bacteria,Urine Trace /lpf; RBC,Urine Occasional #/hpf (0-3); WBC,Urine Occasional #/hpf (0-3)
[2025-04-27] MEDS: ACETAMINOPHEN 500MG TAB 1000 MG PO (12:59)
[2025-04-27] MEDS: ONDANSETRON 4MG ODT 4 MG SL (12:59)
[2025-04-27 13:09] LABS: Hematocrit 31.2 % (37.0-47.0); Hemoglobin 9.7 g/dL (12.2-16.2); Immature Granulocytes % 0.5 %; Mean Corpuscular HGB Conc 31.1 g/dL (31.8-35.4); Mean Corpuscular Hemoglobin 24.7 pg (27.0-31.2); Mean Corpuscular Volume 79.4 fl (81-99); Nucleated Red Blood Cells % 0 %; Platelet Count 309 K/mm3 (142-424); Red Blood Count 3.93 M/mm3 (4.20-5.40); Red Cell Distribution Width-SD 42.7 fL; White Blood Count 9.8 K/mm3 (4.8-10.8)
[2025-04-27 13:14] LABS: Albumin Level 3.6 g/dl (3.5-5.0); Chloride 105 mmol/L (98-107); Potassium 4.3 mmoL/L (3.5-5.1); Sodium 135 mmol/L (136-145)
[2025-04-27 13:17] LABS: Alanine Aminotransferase 19 U/L (12-78); Albumin/Globulin Ratio 1.2 (1.1-1.8); Alkaline Phosphatase 181 U/L (38-126); Anion Gap 11.3 mEq/L (5-15); Aspartate Amino Transferase 32 U/L (14-36); Bilirubin,Total 0.5 mg/dl (0.2-1.3); Blood Urea Nitrogen 5 mg/dl (7-17); Carbon Dioxide 23 mmol/L (22.0-30.0); Creatinine Clearance Estimated 248 mL/min (50-200); Creatinine,Serum 0.50 mg/dl (0.52-1.04); Estimated Glomerular Filt Rate 137 ml/min (>60); GFR (African American) 166 ML/MIN (>60); Globulin 3.0 g/dL (1.3-3.2); Total Protein,Serum 6.6 g/dl (6.3-8.2)
[2025-04-27 13:18] LABS: Calcium 8.5 mg/dl (8.4-10.2); Glucose 77 mg/dl (74-100)
== END 2025-04-27 14:31 | disposition home or self-care (01) ==
LOC: OBOUT 11:45 → OB 11:47
PROVIDERS: PCP Nurse Practitioner; Visit Provider Obstetrics & Gynecology
DX: O10.913 Unspecified pre-existing hypertension complicating pregnancy, third trimester (principal); Z3A.34 34 weeks gestation of pregnancy
CPT/HCPCS: 59025; 80053; 81001; 82570; 84156; 85025; 99212; G0463; Q0162

== ENCOUNTER 2025-04-30 22:53 | Outpatient (CLI) | payer OTHER, SELFPAY ==
--- OUTSIDE RECORDS SUMMARY | 2025-03-25 15:00 | XMS_ITS | Encounter Summary ---
Author Organization [facility] Address [address] [place] [address] Care Team Providers Care Box Attacher Name Role Phone Provider, No Known Primary Care Provider [phone] Reason for Visit * Diagnostic Imaging (Routine) - Closed Specialty Diagnoses / Procedures Referred By Carolyne diaz Referred To Contact Radiology Diagnoses Abnormal genetic test during Chronic hypertension affecting Procedures [facility] Bentley, Dominick Silva MD [address] [place] [address] Phone: tel: fax: Referral ID Status Reason Start Date Expiration Date Visits Re quested Visits Authorized [id number] Closed 12/30/2024 03/31/2026 4 4 Encounter Details Date Type Department Care Team (Latest Contact Info) Description 03/25/2025 3:00 PM EDT - 03/25/2025 11:59 PM EDT Hospital Encounter [facility] [address] [place] [address] Wilber Bender, [address] [facility] [address] [place] [id number] Discharge Disposition: Home or Self Care Social [...] Procedure Name Priority Date/Time Associated Diagnosis Comments [facility] Routine 03/25/2025 3:56 PM EDT Abnormal genetic test during Chronic hypertension affecting documented in this encounter Results * [facility] (03/25/2025 3:56 PM EDT) Anatomical Region Laterality Modality Ultrasound 03/25/2025 3:25 PM EDT Narrative 03/25/2025 4:18 PM EDT PAT NAME: SHIVAM BERNARD MED REC#: [id number] DA: [id number] PAT GEND: F PAT TYPE: O EXAM ALIREZA: [id number] REF PHYS LIVIA WILBRE Comparison Studies The findings of this study [...] EFW (oz) 13 oz EFW by: Hadlock (IDK-VQ-BJ-FL) Extended Tibia 45.8 mm 27w 6d 2% Bella Fibula 45.4 mm 28w 1d 15% Bella Foot 57.5 mm 9% Chitty Radius 37.7 mm 26w 2d 14% Bella Ulna 41.3 mm 26w 6d <1% Bella Cav. septi pel. tr 5.5 mm Information Technology Specialist 3.8 mm CM 4.7 mm 3% Nicolaides [...] (one being BPP/BHAVYA/UA dopplers). Coding ======= Description: 65854-22 Follow Up Ultrasound Description: 59805-52 BPP without NST Description: 32905-84 Doppler Umbilical Artery Thresher Broomcorn: Yoly Choudhary RDMS Physician: Dominick Betnley MD, FACOG Electronically signed by: Dominick Bentley MD, FACOG at: 16:18 Procedure Note Dominick Bentley MD - 03/25/2025 PAT NAME: SHIVAM BERNARD MED REC#: [id number] DA: [id number] PAT GEND: F PAT TYPE: O EXAM ALIREZA: [id number] REF PHYS WILBER BENDER Comparison Studies The findings of this study are compared to the prior ultrasound studydated 02/25/25. Patient Status Outpatient Indication ======== Abnormal NIPT (high risk triploidy, T13, T18.) AMA. CHTN. Hx preeclampsia& PTD (32 & 35 wk). Obesity BMI 39. Maternal Assessment Zhrmoc207 cm Height (ft)5 ft Height (in)3 in Lkndcy476 kg Weight (lb)227 lb BMI40.22 kg/m Method ======= Transabdominal ultrasound examination ========= Black . Number of fetuses: 1 Dating ====== GA by prior [id number] w + 6 d ARIA by prior [...] Hadlock Femur51.2 mm 27w 3d <1% Hadlock Hjzwlks54.3 mm 26w 2d <1% Bella HC / AC1.06 EFW1,278 g 28w 3d 3% Hadlock EFW (lb)2 lb EFW (oz)13 oz EFW by:Hadlock (XOA-TL-KN-FL) Extended Tibia45.8 mm 27w 6d 2% Bella Isxzov85.4 mm 28w 1d 15% Bella Foot57.5 mm 9% Chitty Narlnk92.7 mm 26w 2d 14% Bella Ulna41.3 mm 26w 6d <1% Bella Cav. septi pel. tr5.5 mm Vp3.8 mm CM4.7 mm 3% Nicolaides Head / Face / Neck Cephalic index0.79 46% Nicolaides Extremities / Bony Struc FL / BPD0.69 FL / HC0.19 FL / AC0.20 Other Structures YOL341 bpm General Evaluation Cardiac activity present. FHR [...] office (one being BPP/BHAVYA/UA dopplers). Coding ======= Description:84415-01 Follow Up Ultrasound Description:91556-39 BPP without NST Description:87201-99 Doppler Umbilical Artery Thresher Broomcorn: Yoly Choudhary RDMS Physician: Dominick Bentley MD, FACOG Electronically signed by: Dominick Bentley MD, FACOG at: 16:18 us Dominick Bentley MD IMG US ORDERABLES Final Result documented in this encounter Visit Diagnoses Not on filedocumented in this encounter Care Teams Box Attacher Relationship Specialty Start Date End Date Provider, No Known [place] [id number] PCP - General 01/04/24 documented as of this encounter
--- OUTSIDE RECORDS SUMMARY | 2025-03-25 15:00 | XMS_ITS | Encounter Summary ---
[facility] Organization [facility] Address [address] [place] [address] Care Team Providers Care Hog Driver Name Role Phone Provider, No Known Primary Care Provider [phone] Reason for Visit * Reason Comments ama, CHTN, ABN NIPT Encounter Details Date Type Department Care Team (Late st Contact Info) Description 03/25/2025 3:00 PM EDT Office Visit [facility] MATERNAL MEDICINE [address] [facility] [address] [place] [address] Dominick Bentley MD [address] [facility] [address] [place] [address] Poor growth affecting management of mother in [...] given her abnormal NIPT this could be farm loan representative of that testing. As of note [...] that CMV testing was performed with primary MIRROR SILVERER and she said that the IgM was positive and that the antibody was high though we do not have records of this. This could be indicative of IgM with high avidity which could be farm loan representative of new infection though patient states [...] given her abnormal NIPT this could be farm loan representative of that testing. As of note [...] that CMV testing was performed with primary MIRROR SILVERER and she said that the IgM was positive and that the antibody was high though we do not have records of this. This could be indicative of IgM with high avidity which could be farm loan representative of new infection though patient states [...] or sooner if clinically indicated. Orders: - [facility]; Standing 2. Chronic hypertension affecting Assessment & Plan: Patient presents for follow-up growth ultrasound secondary to AMA, chronic hypertension, abnormal NIPT. Blood sugar today 127/80. Orders: - [facility]; Standing 3. Antepartum multigravida of advanced maternal age - [facility]; Standing 4. Abnormal genetic test during Follow [...] CVS. Dominick Bentley MD, FACOG Maternal Medicine, [facility] documented in this encounter Plan of Treatment Not on file documented as of this encounter Visit Diagnoses Diagnosis Poor growth affecting management of mother in third trimester, single or unspecified fetus- Primary Chronic hypertension affecting Antepartum multigravida of advanced maternal age Abnormal genetic test during documented in this encounter Care Teams Hog Driver Relationship Specialty Start Date End Date Provider, [place] [address] PCP - General 01/04/24 documented as of this encounter
--- OUTSIDE RECORDS SUMMARY | 2025-04-08 14:33 | XMS_ITS | Encounter Summary ---
Author Organization [facility] Address [address] [place] [address] Care Team Providers Care Highway Design Engineer Name Role Phone Provider, No Known Primary Care Provider [phone] Reason for Referral * Diagnostic Imaging (Routine) - Closed Specialty Diagnoses / Procedures Referred By Carolyne diaz Referred To Contact Radiology Diagnoses Abnormal genetic test during Chronic hypertension affecting Procedures [facility] Dominick Bentley MD [address] [place] [address] Phone: tel: fax: Referral ID Status Reason Start Date Expiration Date Visits Re quested Visits Authorized [id number] Closed 12/30/2024 03/31/2026 4 4 Reason for Visit * Diagnostic Imaging (Routine) - Closed Specialty Diagnoses / Procedures Referred By Carolyne diaz Referred To Contact Radiology Diagnoses Abnormal genetic test during Chronic hypertension affecting Procedures [facility] [place] Dominick Bentley MD [address] [facility] [address] [place] [address] Phone: tel: fax: Referral ID Status Reason Start Date Expiration Date Visits Re quested Visits Authorized [id number] Closed 12/30/2024 03/31/2026 4 4 Encounter Details Date Type Department Care Team (Late st Contact Info) Description 04/08/2025 2:33 PM EDT - 04/08/2025 11:59 PM EDT Hospital Encounter [facility] [address] [place] [address] Dominick Bentley MD [address] [place] [address] Abnormal genetic test during ; Chronic hypertension [...] Procedure Name Priority Date/Time Associated Diagnosis Comments [facility] Routine 04/08/2025 3:27 PM EDT Abnormal genetic test during Chronic hypertension affecting documented in this encounter Results * [facility] (04/08/2025 3:27 PM EDT) Anatomical Region Laterality Modality Ultrasound 04/08/2025 3:10 PM EDT Narrative 04/09/2025 12:30 PM EDT PAT NAME: SHIVAM BERNARD MED REC#: [id number] DA: [id number] PAT GEND: F PAT TYPE: O EXAM ALIREZA: [id number] REF PHYS WILBER BHAKTA Comparison Studies The [...] EFW (oz) 14 oz EFW by: Hadlock (PFI-CF-EL-FL) Extended Cav. septi pel. tr 4.9 mm General Ophthalmologist 5.2 mm CM 8.0 mm 70% Nicolaides [...] in 3 weeks scheduled Coding ======= Description: 39966-56 Follow Up Ultrasound Description: 14557-99 BPP without NST Description: 86156-77 Doppler Umbilical Artery Movie Actor: Josephine Gonzales RDMS Physician: Jessica Alejandra MD, FACOG Electronically signed by: Jessica Alejandra MD, FACOG at: 12:30 Procedure Note Jessica Alejandra MD - 04/09/2025 PAT NAME: SHIVAM BERNARD MED REC#: [id number] DA: [id number] PAT GEND: F PAT TYPE: O EXAM ALIREZA: [id number] REF PHYS WILBER BHAKTA Comparison Studies The findings of this study are compared to the prior ultrasound studydated 03/25/25 Patient Status Outpatient Indication ======== AMA. CHTN. Follow up IUGR. Abnormal NIPT (high risk triploidy, T13, T18.)Hx preeclampsia & PTD (32 & 35 wk). Morbid obesity BMI 40. Maternal Assessment Dwntge093 cm Height (ft)5 ft Height (in)3 in Vtdizf857 kg Weight (lb)227 lb BMI40.22 kg/m Method ======= Transabdominal ultrasound examination. View: Adequate view ========= Black . Number of fetuses: 1 Dating ====== Method of dating:based on stated ARIA GA by prior [id number] w + 6 d ARIA by prior assessment:05/28/2025 Ultrasound examination on:04/08/2025 GA by U/S based upon:AC, BPD, Femur, HC GA by U/S31 w + 4 d ARIA by U/S:06/06/2025 Previous dating:based on stated ARIA, selected on 02/25/2025 Agreed ARIA of previous datin05/28/2025 Assigned:based on stated ARIA, selected on 04/08/2025 Assigned GA32 w + 6 d Assigned ARIA:05/28/2025 kanfbt715 d Biometry Standard BPD80.2 mm 32w 1d 24% Hadlock OFD98.4 mm 31w 6d 23% Bella HC287.0 mm 31w 4d 2% Hadlock Cerebellum tr41.5 mm 32w 6d 31% Hill AC273.7 mm 31w 3d 14% Hadlock Femur59.6 mm 31w 0d 5% Hadlock Zqsffcp08.1 mm 30w 6d 13% Bella HC / AC1.05 EFW1,758 g 31w 0d 9% Hadlock EFW (lb)3 lb EFW (oz)14 oz EFW by:Hadlock (EJH-OQ-OX-FL) Extended Cav. septi pel. tr4.9 mm Vp5.2 mm CM8.0 mm 70% Nicolaides Head / Face / Neck Cephalic index0.82 66% Nicolaides Extremities / Bony Struc FL / BPD0.74 FL / HC0.21 FL / AC0.22 Other Structures IFG419 bpm General Evaluation Cardiac activity present. FHR [...] growth in 3 weeks scheduled Coding ======= Description:37938-38 Follow Up Ultrasound Description:70512-10 BPP without NST Description:76884-18 Doppler Umbilical Artery Movie Actor: Josephine Gonzales RDMS Physician: Jessica Alejandra MD, FACOG Electronically signed by: Jessica Alejandra MD, FACOG at: 2312:30 Dominick Bentley MD G US ORDERABLES Final Result documented in this encounter Visit Diagnoses Diagnosis Abnormal genetic test during Chronic hypertension affecting documented in this encounter Care Teams Highway Design Engineer Relationship Specialty Start Date End Date Provider, [place] [address] PCP - General 01/04/24 documented as of this encounter
--- OUTSIDE RECORDS SUMMARY | 2025-04-08 14:45 | XMS_ITS | Encounter Summary ---
Author Organization [facility] Address [address] [place] [address] Care Team Providers Care Finish Off Operator Name Role Phone Provider, No Known Primary Care Provider [phone] Reason for Visit * Reason Comments CHTN, AMA, abn NIPT, MO, hx PreE, IUGR Encounter Details Date Type Department Care Team (Late st Contact Info) Description 04/08/2025 2:45 PM EDT Office Visit [facility] MATERNAL MEDICINE [address] [address] Jessica Alejandra MD [address] [phone] Chronic hypertension affecting (Primary Dx); Antepartum multigravida [...] in 3 weeks with MFM * Rhonda Christinason RN - 04/08/2025 2:45 PM EDT Denies [...] CVS. Jessica Alejandra MD FACOG Maternal Medicine, [facility] 04/08/2025 documented in this encounter Plan of Treatment Not on file documented as of this encounter Visit Diagnoses Diagnosis Chronic hypertension affecting - Primary Antepartum multigravida of advanced maternal age Abnormal genetic test during Poor growth affecting management of mother in third trimester, single or unspecified fetus documented in this encounter Care Teams Finish Off Operator Relationship Specialty Start Date End Date Provider, [place] [address] PCP - General 01/04/24 documented as of this encounter
--- OUTSIDE RECORDS SUMMARY | 2025-04-30 15:18 | XMS_ITS | Encounter Summary ---
Author Organization [facility] Address [address] [place] [address] Care Team Providers Care Ball Holder Name Role Phone Provider, No Known Primary Care Provider [phone] Reason for Visit * Diagnostic Imaging (Routine) - Canceled Specialty Diagnoses / Procedures Referred By Daveac t Referred To Contact Radiology Diagnoses Chronic hypertension affecting Antepartum multigravida of advanced maternal age Poor growth affecting management of mother in third trimester, single or unspecified fetus Procedures US [facility] Bentley, Dominick Silva MD [address] [facility] [address] [place] [address] Phone: tel: fax: [facility] US PER DIAG CTR [address] [place] [address] Phone: tel: Referral ID Status Reason Start Date Expiration Date V isits Requested Visits Authorized [id number] Canceled 03/25/2025 06/24/2026 3 3 Encounter Details Date Type Department Care Team (Late st Contact Info) Description 04/30/2025 3:18 PM EDT Hospital Encounter [facility] US PER DIAG CTR [address] [place] [address] Social History Tobacco Use Types Packs/Day Years [...] Procedure Name Priority Date/Time Associated Diagnosis Comments [facility] Routine 04/30/2025 3:41 PM EDT Chronic hypertension affecting Antepartum multigravida of advanced maternal age Poor growth affecting management of mother in third trimester, single or unspecified fetus documented in this encounter Results * [facility] (04/30/2025 3:41 PM EDT) Anatomical Region Laterality Modality Ultrasound 04/30/2025 3:28 PM EDT Narrative 04/30/2025 3:55 PM EDT PAT NAME: SHIVAM BERNARD MED REC#: [id number] DA: [id number] PAT GEND: F PAT TYPE: O EXAM ALIREZA: [id number] REF PHYS WILBER BHAKTA Comparison Studies The [...] EFW (oz) 3 oz EFW by: Hadlock (QIK-VT-BI-FL) Extended Cav. septi pel. tr 5.3 mm Map Colorer 6.3 mm Head / Face / Neck [...] 4-chamber view: Appears normal Heart / Thorax 2-qpqmqx-lqybtmi view: Appears normal Cord insertion: Normal Stomach: [...] Follow-up as clinically indicated. Coding ======= Description: 20561-02 Follow Up Ultrasound Description: 58786-50 BPP without NST Description: 41957-06 Doppler Umbilical Artery Account Director: RT Minerva Salmon , [facility] Physician: Jessica Alejandra MD, FACOG Electronically signed by: Jessica Alejandra MD, FACOG at: 15:55 Procedure Note Jessica Alejandra MD - 04/30/2025 PAT NAME: SHIVAM BERNARD MED REC#: [id number] DA: [id number] PAT GEND: F PAT TYPE: O EXAM ALIREZA: [id number] REF PHYS WILBER BHAKTA Comparison Studies The findings of this study are compared to the prior ultrasound studydated 04/08/25 Patient Status Outpatient Indication ======== AMA. CHTN. Follow up IUGR. Abnormal NIPT (high risk triploidy, T13, T18.)Hx preeclampsia & PTD (32 & 35 wk). Morbid obesity BMI 41. Maternal Assessment Bshxpv375 cm Height (ft)5 ft Height (in)3 in Kfflxk251 kg Weight (lb)232 lb BMI41.11 kg/m Method ======= Transabdominal ultrasound examination. View: Suboptimal view: limited bylate gestational age ========= Black . Number of fetuses: 1 Dating ====== Method of dating:based on stated ARIA GA by prior hvdiqlimbx74 w + 0 d ARIA by prior assessment:05/28/2025 Ultrasound examination on:04/30/2025 GA by U/S based upon:AC, BPD, Femur, HC GA by U/S34 w + 1 d ARIA by U/S:06/10/2025 Previous dating:based on stated ARIA, selected on 04/08/2025 Agreed ARIA of previous datin05/28/2025 Assigned:based on stated ARIA, selected on 04/30/2025 Assigned GA36 w + 0 d Assigned ARIA:05/28/2025 ugngzz563 d Biometry Standard BPD84.9 mm 34w 1d 13% Hadlock EUH506.1 mm 34w 4d 18% Bella HC303.8 mm 33w 5d <1% Hadlock AC301.8 mm 34w 1d 12% Hadlock Femur66.7 mm 34w 2d 10% Hadlock Zhevvmz45.3 mm 34w 3d 29% Bella HC / AC1.01 EFW2,363 g 34w 0d 11% Hadlock EFW (lb)5 lb EFW (oz)3 oz EFW by:Hadlock (YEB-YE-UT-FL) Extended Cav. septi pel. tr5.3 mm Vp6.3 mm Head / Face / Neck Cephalic index0.81 44% Nicolaides Extremities / Bony Struc FL / BPD0.79 FL / HC0.22 FL / AC0.22 Other Structures YFO664 bpm General Evaluation Cardiac activity present. FHR [...] Lips:Normal 4-chamber view:Appears normal Heart / Thorax 8-gxphnj-ttnlbtd view:Appears normal Cord insertion:Normal Stomach:Appears normal Kidneys:Appears [...] Amniotic fluid volume 8 Biophysical profile score Impression Today's exam reveals a SIUP in cephalic presentation with biometryconsistent with dates. Limited anatomic survey appears normal. TheAFI and BPP are normal. Recommendation Follow-up as clinically indicated. Coding ======= Description:85610-67 Follow Up Ultrasound Description:38836-68 BPP without NST Description:57274-93 Doppler Umbilical Artery Account Director: RT Minerva Salmon , [facility] Physician: Jessica Alejandra MD, FACOG Electronically signed by: Jessica Alejandra MD, FACOG at: 1315:55 us Dominick Bentley MD G US ORDERABLES Final Result documented in this encounter Visit Diagnoses Not on filedocumented in this encounter Care Teams Ball Holder Relationship Specialty Start Date End Date Provider, No Known [facility] [place] [address] PCP - General 01/04/24 documented as of this encounter
--- OUTSIDE RECORDS SUMMARY | 2025-04-30 15:30 | XMS_ITS | Encounter Summary ---
[facility] Address [address] [place] [address] Care Team Providers Care Freight Coordinator Name Role Phone Provider, No Known Primary Care Provider [phone] Reason for Visit * Reason Comments AMA; MO; CHTN; abnormal NIPT; hx preecla mpsia; IUGR Encounter Details Date Type Department Care Team (Late st Contact Info) Description 04/30/2025 3:30 PM EDT Office Visit [facility] MATERNAL MEDICINE [address] [address] Jessica Alejandra MD [address] [place] [phone] Chronic hypertension affecting (Primary Dx) Social History [...] Primary documented in this encounter Care Teams Freight Coordinator Relationship Specialty Start Date End Date Provider, No Known [place] [id number] PCP - General 01/04/24 documented as of this encounter
[2025-04-30 22:56] VITALS: BMI 39.3
--- OUTSIDE RECORDS SUMMARY | 2025-04-30 22:56 | XMS_ITS | Clinical Summary ---
Author Organization [facility] Address [address] [place] [address] Care Team Providers Care Virtualization Architect Name Role Phone Provider, No Known Primary Care Provider [phone] Allergies No known active allergies Medications amLODIPine [...] her abnormal NIPT this could be sales representative graphic art of that testing. As of note patient [...] that CMV testing was performed with primary TIPPLE OILER and she said that the IgM was positive and that the antibody was high though we do not have records of this. This could be indicative of IgM with high avidity which could be sales representative graphic art of new infection though patient states this [...] Encounters Date Type Department Care Team Description 04/30/2025 3:30 PM EDT Office Visit [facility] MATERNAL MEDICINE [address] [facility] [place] [address] [place] [phone] Jessica Alejandra MD Chronic hypertension affecting (Primary Dx) 04/30/2025 3:18 PM EDT Hospital Encounter [facility] [address] [place] [address] 04/30/2025 Travel 04/08/2025 2:45 PM EDT Office Visit [facility] MATERNAL MEDICINE [address] [phone] Jessica Alejandra MD Chronic hypertension affecting (Primary Dx); Antepartum multigravida of advanced maternal age; Abnormal genetic test during ; Poor growth affecting management of mother in third trimester, single or unspecified fetus 04/08/2025 2:33 PM EDT - 04/08/2025 11:59 PM EDT Hospital Encounter [facility] [address] [place] [address] Dominick Bentley MD Abnormal genetic test during ; Chronic hypertension affecting Discharge Disposition: Home or Self Care 04/08/2025 Travel 03/25/2025 3:00 PM EDT Office Visit [facility] MATERNAL MEDICINE [address] [phone] Dominick Bentley MD Poor growth affecting management of mother in third trimester, single or unspecified fetus (Primary Dx); Chronic hypertension affecting ; Antepartum multigravida of advanced maternal age; Abnormal genetic test during 03/25/2025 3:00 PM EDT - 03/25/2025 11:59 PM EDT Hospital Encounter [facility] [address] [place] [address] Wilber Bender, DO Discharge Disposition: Home or Self Care 03/25/2025 Travel 02/25/2025 2:15 PM EDT Office Visit [facility] MATERNAL MEDICINE [address] [facility] [address] [address] [place] [phone] Jessica Alejandra MD Antepartum multigravida of advanced maternal age (Primary Dx); Chronic hypertension affecting 02/25/2025 2:00 PM EDT - 02/25/2025 11:59 PM EDT Hospital Encounter [facility] [address] [place] [address] Wilber Bender, DO Discharge Disposition: Home or Self Care 02/25/2025 Travel from Last 3 Months Family History [...] 9.6 oz) 04/30/2025 3:23 PM EDT Height 160 cm (5' 3 ) 12/30/2024 2:09 PM EDT Body Mass Index 41.2 12/30/2024 2:09 PM EDT Plan of Treatment Health Maintenance Due [...] Procedure Name Priority Date/Time Associated Diagnosis Comments [facility] Routine 04/30/2025 3:41 PM EDT Chronic hypertension affecting Antepartum multigravida of advanced maternal age Poor growth affecting management of mother in third trimester, single or unspecified fetus [facility] Routine 04/08/2025 3:27 PM EDT Abnormal genetic test during Chronic hypertension affecting [facility] Routine 03/25/2025 3:56 PM EDT Abnormal genetic test during Chronic hypertension affecting [facility] Routine 02/25/2025 2:41 PM EDT Abnormal genetic test during Chronic hypertension affecting HEMOGLOBIN A1C Routine 01/08/2024 8:54 AM EDT Blighted ovum from Last 3 Months or Most Recently Relevant to Health Maintenance Results * [facility] (04/30/2025 3:41 PM EDT) Only the most recent of4 resultswithin the time period is included. Anatomical Region Laterality Modality Ultrasound 04/30/2025 3:28 PM EDT Narrative 04/30/2025 3:55 PM EDT PAT NAME: SHIVAM BERNARD MED REC#: [id number] DA: [id number] PAT GEND: F PAT TYPE: O EXAM ALIREZA: [id number] REF PHYS WILBER BENDER Comparison Studies The [...] EFW (oz) 3 oz EFW by: Hadlock ([id number]) Extended Cav. septi pel. tr 5.3 mm Political Theory Professor 6.3 mm Head / Face / Neck [...] 4-chamber view: Appears normal Heart / Thorax 8-okoxjj-idecerg view: Appears normal Cord insertion: Normal Stomach: [...] Follow-up as clinically indicated. Coding ======= Description: 10693-58 Follow Up Ultrasound Description: 54246-57 BPP without NST Description: 00509-69 Doppler Umbilical Artery Medical Instrument Technician: RT Minerva Salmon , [facility] Physician: Jessica Alejandra MD, FACOG Electronically signed by: Jessica Alejandra MD, FACOG at: 15:55 Procedure Note Jessica Alejandra MD - 04/30/2025 PAT NAME: SHIVAM BERNARD MED REC#: [id number] DA: [id number] PAT GEND: F PAT TYPE: O EXAM ALIREZA: [id number] REF PHYS WILBER BENDER Comparison Studies The findings of this study are compared to the prior ultrasound studydated 04/08/25 Patient Status Outpatient Indication ======== AMA. CHTN. Follow up IUGR. Abnormal NIPT (high risk triploidy, T13, T18.)Hx preeclampsia & PTD (32 & 35 wk). Morbid obesity BMI 41. Maternal Assessment Sbeheu484 cm Height (ft)5 ft Height (in)3 in Gzjppr990 kg Weight (lb)232 lb BMI41.11 kg/m Method ======= Transabdominal ultrasound examination. View: Suboptimal view: limited bylate gestational age ========= Black . Number of fetuses: 1 Dating ====== Method of dating:based on stated ARIA GA by prior [id number] w + 0 d ARIA by prior assessment:05/28/2025 Ultrasound examination on:04/30/2025 GA by U/S based upon:AC, BPD, Femur, HC GA by U/S34 w + 1 d ARIA by U/S:06/10/2025 Previous dating:based on stated ARIA, selected on 04/08/2025 Agreed ARIA of previous datin05/28/2025 Assigned:based on stated ARIA, selected on 04/30/2025 Assigned GA36 w + 0 d Assigned ARIA:05/28/2025 [id number] d Biometry Standard BPD84.9 mm 34w 1d 13% Hadlock BHW742.1 mm 34w 4d 18% Bella HC303.8 mm 33w 5d <1% Hadlock AC301.8 mm 34w 1d 12% Hadlock Femur66.7 mm 34w 2d 10% Hadlock Zqqtrwd86.3 mm 34w 3d 29% Bella HC / AC1.01 EFW2,363 g 34w 0d 11% Hadlock EFW (lb)5 lb EFW (oz)3 oz EFW by:Hadlock ([id number]) Extended Cav. septi pel. tr5.3 mm Vp6.3 mm Head / Face / Neck Cephalic index0.81 44% Nicolaides Extremities / Bony Struc FL / BPD0.79 FL / HC0.22 FL / AC0.22 Other Structures XPQ102 bpm General Evaluation Cardiac activity present. FHR [...] Lips:Normal 4-chamber view:Appears normal Heart / Thorax 8-zksvup-kuuhqxg view:Appears normal Cord insertion:Normal Stomach:Appears normal Kidneys:Appears [...] Recommendation Follow-up as clinically indicated. Coding ======= Description:10567-70 Follow Up Ultrasound Description:87018-55 BPP without NST Description:86805-40 Doppler Umbilical Artery Medical Instrument Technician: RT Minerva Salmon , [facility] Physician: Jessica Alejandar MD, FACOG Electronically signed by: Jessica Alejandra MD, FACOG at: 5:55 us Dominick Bentley MD [facility] US ORDERABLES Final Result * Hemoglobin A1c (01/08/2024 8:54 AM EDT) Hemoglobin A1C 5.20 4.80 - 5.60 % [facility] Comment: Hemoglobin A1C Ranges: Increased Risk for Diabetes 5.7% to 6.4% Diabetes >= 6.5% Diabetic Goal < 7.0% Blood 01/08/2024 8:54 AM EDT 01/08/2024 Narrative [facility]) - 01/09/2024 8:16 AM EDT Performed at: [address] [place] [id number] Balcony Worker: Kevin Staley MD, Phone: [phone] Patient Fasting: N us Caleb Alves MD LAB BLOOD ORDERABLES Fin al Result [facility]) [address] [place] [address], [facility] [address] [place] [address], from Last 3 Months or Most Recently Relevant to Health Maintenance Insurance [facility] Care Teams Virtualization Architect Relationship Specialty Start Date End Date Provider, [place] [address] PCP - General 01/04/24
--- OUTSIDE RECORDS SUMMARY | 2025-04-30 22:56 | XMS_ITS | Encounter Summary ---
Author Organization [employer] ([place], [place], [place], [place]) Address [address] [place] [address] Care Team Providers Care Binding Cementer French Cord Name Role Phone Unavailable Primary Care Provider Unavailabl e Encounter Details Date Type Department Care Team (Late st Contact Info) Description 09/27/2018 Transcribed Document [facility] [place] [facility] [place] [address] ProviderChula MD [address] [place] [address] Social History Tobacco Use Types [...] - Chula ProviderMD - 09/27/2018 10:30 AM BATCH UNLOADER Patient: SHIVAM BERNARD Age: 33 Years Sex: [...]
--- OUTSIDE RECORDS SUMMARY | 2025-04-30 22:56 | XMS_ITS | Encounter Summary ---
Author Organization [employer] ([place], [place], [place], [place]) Address [address] [place] [address] Care Team Providers Care Marketing Assistant Retail Division Name Role Phone Unavailable Primary Care Provider Unavailabl e Encounter Details Date Type Department Care Team (Late st Contact Info) Description 10/11/2018 Transcribed Document [facility] Family Medicine [facility] [place] [address] ProviderChula MD [address] [place] [address] Social History Tobacco Use [...] - Chula ProviderMD - 10/11/2018 9:28 AM TEXTILE SCREEN MAKER DATE OF PROCEDURE: 10/11/2018 ORTHOPEDIC OPERATIVE NOTE PREOPERATIVE DIAGNOSIS(ES): Right L5-S1 herniated nucleus pulposus. POSTOPERATIVE DIAGNOSIS(ES): Right L5-S1 herniated nucleus pulposus. PROCEDURE: Right L5-S1 microdiscectomy, CPT code-64533. SURGEON: Chase Recinos MD INTELLECTUAL PROPERTY MANAGER: Benjy. COMPLICATIONS: None. SPECIMENS: None. IMPLANTS: None. ESTIMATED BLOOD LOSS: 25 mL. DESCRIPTION OF PROCEDURE: Patient was identified in the holding area at [facility], transferred to the operative room [...]
--- OUTSIDE RECORDS SUMMARY | 2025-04-30 22:56 | XMS_ITS | Encounter Summary ---
Author Organization [employer] ([place], [place], [place], [place]) Address [address] [place] [address] Care Team Providers Care Recycling Operator Name Role Phone Unavailable Primary Care Provider Unavailabl e Encounter Details Date Type Department Care Team (Late st Contact Info) Description 10/11/2018 Transcribed Document [facility] [place] [facility] [place] [address] ProviderChula MD [address] [place] [address] Social History Tobacco Use Types [...] - Historical ProviderMD - 10/11/2018 6:12 AM MERCHANDISE DISTRIBUTOR Pediatric Growth Entered On: 10/11/2018 6:12 EST Performed On: 10/11/2018 6:12 EST by Michelle Le Patient Primary Substance Abuse Counselor Height and Weight, Clinical Dosing Height Source : Stated Height Entry Format : [place] Height, Feet : 5 ft(Converted to: 152 cm, 60 Inch) Height, Inches : 4 Inch(Converted to: 0 ft 4 Inch, 10.16 cm) Clinical Height : 162.56 cm Weight Source : Standing scale Weight Entry Format : [place] Clinical Dosing Weight : 87.73 kg Weight, Pounds : 193 lb Body Surface Area (BSA) : 1.93 m2 Body Mass Index : 33.2 kg/m2 (HI) [place] Body Weight : 54 kg Michelle Le Patient Primary Substance Abuse Counselor - 10/11/2018 6:12 EST Electronically signed by Hanane [facility] Conversion Souvenir And Novelty Maker Cerner at 01/06/2023 5:04 PM CDT documented in this encounter Plan of Treatment Not on file documented as of this encounter Visit Diagnoses Not on filedocumented in this encounter
--- OUTSIDE RECORDS SUMMARY | 2025-04-30 22:56 | XMS_ITS | Encounter Summary ---
Author Organization [employer] ([place], [place], [place], [place]) Address [address] [place] [address] Care Team Providers Care Crop Grain Or Livestock Farmer Name Role Phone Unavailable Primary Care Provider Unavailabl e Encounter Details Date Type Department Care Team (Late st Contact Info) Description 10/11/2018 Transcribed Document [facility] [place] On [facility] of [facility] [place] [address] ProviderChula MD [address] [place] [address] Social History Tobacco Use Types [...] - Chula ProviderMD - 10/11/2018 8:13 AM PATIENT CARE SECRETARY E Main OR PACU Summary Primary Physician: JUANY PRICE MD Finalized Date/Time: 10/11/18 11:43:57 Pt. Name: SHIVAM BERNARD D.O.B./Sex: 1985 Female Med Rec #: [id number] Physician: JUANY PRICE MD Financial #: [id number] Pt. Type: O Room/Bed: [facility] Admit/Disch: 10/11/18 04:54:00 - Institution: [facility] Main OR PACU Case Times Entry 1 [...] RN 10/11/18 11:43 Electronically signed by Hanane [facility] Conversion Tape Recorder Repairer Cerner at 01/06/2023 4:48 PM CDT documented in this encounter Plan of Treatment Not on file documented as of this encounter Visit Diagnoses Not on filedocumented in this encounter
--- OUTSIDE RECORDS SUMMARY | 2025-04-30 22:56 | XMS_ITS | Encounter Summary ---
Author Organization [employer] ([place], [place], [place], [place]) Address [address] [place] [address] Care Team Providers Care Bending Roll Operator Name Role Phone Unavailable Primary Care Provider Unavailabl e Encounter Details Date Type Department Care Team (Late st Contact Info) Description 10/11/2018 Transcribed Document [facility] [place] Medicine [facility] [place] [address] ProviderChula MD [address] [place] [address] Social History Tobacco Use Types [...] - Historical ProviderMD - 10/11/2018 8:12 AM HUMAN RESOURCES COMMUNICATIONS MANAGER Peripheral Nerve Block Entered On: 10/11/2018 [...] - 10/11/2018 8:12 EST Electronically signed by [facility] Conversion Lead Painter Cerner at 01/06/2023 4:48 PM CDT documented in this encounter Plan of Treatment Not on file documented as of this encounter Visit Diagnoses Not on filedocumented in this encounter
--- OUTSIDE RECORDS SUMMARY | 2025-04-30 22:56 | XMS_ITS | Encounter Summary ---
Author Organization [employer] ([place], [place], [place], [place]) Address [address] [place] [address] Care Team Providers Care Line Builder Name Role Phone Unavailable Primary Care Provider Unavailabl e Encounter Details Date Type Department Care Team (Late st Contact Info) Description 10/11/2018 Transcribed Document [facility] [place] [facility] [place] [address] ProviderChula MD [address] [place] [address] Social History Tobacco Use Types [...] - Chula ProviderMD - 10/11/2018 8:13 AM CAMP MAINTENANCE SUPERVISOR POLINA Main OR PreOp Summary Primary Physician: JUANY PRICE MD Finalized Date/Time: 10/11/18 10:17:21 Pt. Name: SHIVAM BERNARD D.O.B./Sex: 1985 Female Med Rec #: [id number] Physician: JUANY PRICE MD Financial #: [id number] Pt. Type: O Room/Bed: [facility] Admit/Disch: 10/11/18 04:54:00 - [place] [facility] [place] Case Times Entry 1 In Preop 10/11/18 05:30:00 Ready for Holding n/a Room Patient Ready for 10/11/18 06:47:00 Surgery Patient Out of Preop 10/11/18 07:35:00 Patient Out of n/a Holding Room Last Modified By: CYNDI LEONARD 10/11/18 10:17:20 SJE PreOp Case Times Audit 10/11/18 10:17:20 Pipefitter Welder: MANDOINMARCK Modifier: [email or web address] <+> 1 Patient Out of Preop 10/11/18 06:47:33 Pipefitter Welder: CRAINMA Modifier: CRAINMA <+> 1 Patient Ready for Surgery Finalized By: CYNDI LEONARD Document Signatures Signed By: CYNDI LEONARD 10/11/18 10:17 documented in this encounter Plan of Treatment Not on file documented as of this encounter Visit Diagnoses Not on filedocumented in this encounter
--- OUTSIDE RECORDS SUMMARY | 2025-04-30 22:56 | XMS_ITS | Encounter Summary ---
Author Organization [employer] ([place], [place], [place], [place]) Address [address] [place] [address] Care Team Providers Care Supervisor Covering And Lining Name Role Phone Unavailable Primary Care Provider Unavailabl e Encounter Details Date Type Department Care Team (Late st Contact Info) Description 10/11/2018 Transcribed Document [facility] [place] [facility] [place] [address] ProviderChula MD [address] [place] [...] - Historical ProviderMD - 10/11/2018 7:31 AM CORRECTIONAL PROGRAM SPECIALIST Event Note Entered On: 10/11/2018 7:33 EST [...]
--- OUTSIDE RECORDS SUMMARY | 2025-04-30 22:56 | XMS_ITS | Encounter Summary ---
Author Organization [employer] ([place], [place], [place], [place]) Address [address] [place] [address] Care Team Providers Care Cnc Maintenance Technician Name Role Phone Unavailable Primary Care Provider Unavailabl e Encounter Details Date Type Department Care Team (Late st Contact Info) Description 10/11/2018 Transcribed Document [facility] [place] [facility] [place] [address] ProviderChula MD [address] [place] [address] Social History Tobacco Use Types [...] - Historical ProviderMD - 10/11/2018 6:33 AM EDUCATION AND DEVELOPMENT MANAGER Pre Procedure Adult Entered On: 10/11/2018 6:47 EST Performed On: 10/11/2018 6:33 EST by Naa Alonso Nurse - denise Height and Weight, Clinical Dosing Height Source : Stated Height Entry Format : [place] Height, Feet : 5 ft(Converted to: 152 cm, 60 Inch) Height, Inches : 4 Inch(Converted to: 0 ft 4 Inch, 10.16 cm) Clinical Height : 162.56 cm Weight Source : Standing scale Weight Entry Format : [place] Clinical Dosing Weight : 87.73 kg Weight, Pounds : 193 lb Body Surface Area (BSA) : 1.93 m2 Body Mass Index : 33.2 kg/m2 (HI) [place] Body Weight : 54 kg Naa Alonso [...] Obtained From : Patient Primary Language : Bhutanese Preferred Communication Mode : Verbal Communication Barrier [...] Scale Risk Level : 0-24 Low Risk [place] Fall Interventions : Adequate lighting, Call device [...]
--- OUTSIDE RECORDS SUMMARY | 2025-04-30 22:56 | XMS_ITS | Encounter Summary ---
Author Organization [employer] ([place], [place], [place], [place]) Address [address] [place] [address] Care Team Providers Care Tray Line Supervisor Name Role Phone Unavailable Primary Care Provider Unavailabl e Encounter Details Date Type Department Care Team (Late st Contact Info) Description 09/27/2018 Transcribed Document [facility] [place] [facility] [place] [address] ProviderChula MD [address] [place] [address] Social History Tobacco Use Types [...] - Chula ProviderMD - 09/27/2018 10:11 AM ORDNANCE ENGINEER PAT Adult Entered On: 09/27/2018 10:15 EST [...] Source : Stated Height Entry Format : [place] Height, Feet : 5 ft(Converted to: 152 cm, 60 Inch) Height, Inches : 4 Inch(Converted to: 0 ft 4 Inch, 10.16 cm) Clinical Height : 162.56 cm Weight Source : Standing scale Weight Entry Format : Garita Clinical Dosing Weight : 88.18 kg Weight, Pounds : 194 lb Body Surface Area (BSA) : 1.93 m2 Body Mass Index : 33.4 kg/m2 (HI) Sharon Body Weight : 54 kg Veronica Marin [...] Obtained From : Patient Primary Language : Tamazight Preferred Communication Mode : Verbal Communication Barrier [...]
--- OUTSIDE RECORDS SUMMARY | 2025-04-30 22:56 | XMS_ITS | Encounter Summary ---
Author Organization [employer] ([place], [place], [place], [place]) Address [address] [place] [address] Care Team Providers Care Remediation Project Engineer Name Role Phone Unavailable Primary Care Provider Unavailabl e Encounter Details Date Type Department Care Team (Late st Contact Info) Description 10/11/2018 Transcribed Document [facility] [place] [facility] [place] [address] ProviderChula MD [address] [id number] Social History Tobacco Use Types Packs/Day Years [...] - Historical ProviderMD - 10/11/2018 7:35 AM KILN CLEANER Event Note Entered On: 10/11/2018 7:37 EST [...]
--- OUTSIDE RECORDS SUMMARY | 2025-04-30 22:56 | XMS_ITS | Encounter Summary ---
Author Organization [employer] ([place], [place], [place], [place]) Address [address] [place] [address] Care Team Providers Care Food Service Employee Name Role Phone Unavailable Primary Care Provider Unavailabl e Encounter Details Date Type Department Care Team (Late st Contact Info) Description 10/11/2018 Transcribed Document [facility] [place] Family Medicine [facility] [place] [address] ProviderChula MD [address] [place] [address] Social History Tobacco Use Types [...] - Chula ProviderMD - 10/11/2018 8:13 AM MICROSCOPIST POLINA Main OR IntraOp Summary Primary Physician: JUANY PRICE MD Finalized Date/Time: 10/11/18 09:39:55 Pt. Name: SUNIL BERNARDLONNIE Acevedo /Sex: 1985 Female Med Rec #: [id number] Physician: JUANY PRICE MD Financial #: [id number] Pt. Type: O Room/Bed: [facility] Admit/Disch: 10/11/18 04:54:00 - Institution: [facility] [place] IntraOp Case Attendance Entry 1 Entry 2 Entry 3 Case Attendee JUANY PRICE MD BRUNNER, RICHARD V, Chelsey Bran Rn-Surgery Role Performed Surgeon/Proceduralist, LINE OUT WORKER/Nurse Neonatal Nurse Scientist, First First Time In 10/11/18 07:39:00 10/11/18 [...] HAVEN Role Performed Scrub, First Physician assistant fitness manager Electrical Mechanic Time In 10/11/18 07:39:00 10/11/18 07:39:00 10/11/18 07:39:00 Time Out 10/11/18 09:33:00 10/11/18 09:33:00 10/11/18 09:33:00 Procedure Lumbar Microdiscectomy Lumbar Microdiscectomy Lumbar Microdiscectomy Other Attendee Superficial Wound Closed By: Last Modified By: Chelsey Mae Demike, Cynthia Y, Demike, Cynthia Y, Rn-Surgery 10/11/18 Rn-Surgery 10/11/18 Rn-Surgery 10/11/18 09:33:47 09:33:47 09:33:47 Entry 7 Entry 8 Case Attendee FABIAN CRUZ, RN Cruz Hu[address] ST Role Performed Scientist, Second Scrub, Second Time In 10/11/18 08:48:00 10/11/18 09:02:00 Time Out 10/11/18 09:02:00 10/11/18 09:33:00 Procedure Lumbar Microdiscectomy Lumbar Microdiscectomy Other Attendee Superficial Wound Closed By: Last Modified By: Chelsey Mae Demike, Cynthia Y, Rn-Surgery 10/11/18 Rn-Surgery 10/11/18 09:33:47 09:33:47 [facility] IntraOp Case Attendance Audit 10/11/18 09:33:47 Cardroom Supervisor: [id number] Modifier: [id number] 1 <*> Procedure Lumbar Microdiscectomy 2 <+> [...] 8 <*> Procedure Lumbar Microdiscectomy 10/11/18 09:21:03 Cardroom Supervisor: [id number] Modifier: [id number] <+> Time Out 1 <*> Procedure Lumbar Microdiscectomy 10/11/18 09:04:27 Cardroom Supervisor: [id number] Modifier: [id number] <+> 1 Procedure 2 <*> Procedure Lumbar Microdiscectomy 3 <*> Procedure Lumbar Microdiscectomy 4 <*> Procedure Lumbar Microdiscectomy 5 <*> Procedure Lumbar Microdiscectomy 6 <*> Procedure Lumbar Microdiscectomy 7 <*> Procedure Lumbar Microdiscectomy 8 <*> Procedure Lumbar Microdiscectomy 10/11/18 09:04:05 Cardroom Supervisor: [id number] Modifier: [id number] <+> 7 Case Attendee <+> 7 Role Performed <+> 7 Time In <+> 7 Time Out <+> 7 Procedure <+> 8 Case Attendee <+> 8 Role Performed <+> 8 Time In <+> 8 Procedure 10/11/18 08:29:38 Cardroom Supervisor: [id number] Modifier: [id number] <*> Procedure Lumbar Microdiscectomy 3 <*> Procedure Lumbar Microdiscectomy 4 <*> Procedure Lumbar Microdiscectomy 5 <*> Procedure Lumbar Microdiscectomy 6 <+> Time In 6 <*> Procedure Lumbar Microdiscectomy 10/11/18 08:24:25 Cardroom Supervisor: [id number] Modifier: [id number] 2 <*> Procedure Lumbar Microdiscectomy 3 <*> Procedure Lumbar Microdiscectomy 4 <*> Procedure Lumbar Microdiscectomy 5 <+> Time In 5 <*> Procedure Lumbar Microdiscectomy <+> 6 Case Attendee <+> 6 Role Performed <+> 6 Procedure 10/11/18 08:13:49 Cardroom Supervisor: [id number] Modifier: [id number] <+> 1 Time In 2 <+> Time [...] [facility] IntraOp Case Times Audit 10/11/18 09:33:44 Cardroom Supervisor: [id number] Modifier: [id number] <+> 1 Out Room Time <+> 1 Stop Time 10/11/18 09:33:20 Cardroom Supervisor: [id number] Modifier: [id number] <+> 1 Stop Time 10/11/18 08:13:56 Cardroom Supervisor: [id number] Modifier: [id number] <+> 1 Start Time [facility] IntraOp Cautery [...] 08:35:57 S[facility] IntraOp Cautery Audit 10/11/18 08:35:57 Cardroom Supervisor: [id number] Modifier: [id number] 1 <*> Grounding Pad Site Right Lower [...] S[facility] IntraOp Counts Final Audit 10/11/18 09:21:17 Cardroom Supervisor: [id number] Modifier: [id number] 1 <*> Procedure Lumbar Microdiscectomy 1 <+> [...] Rn-Surgery 10/11/18 08:26:46 SJE IntraOp General Case Wheel Press Operator 1 Case Information OR OR 01 SJE [...] Avitene 1Gm powder - Marcaine 0.25% 30ml [id number] vial - [id number] Combo Med List Time Administered Route of [...] Intra Op Sign Out Audit 10/11/18 09:39:50 Cardroom Supervisor: [id number] Modifier: [id number] <+> 1 RN Sign Out Signature Date/Time [...] [facility] IntraOp Surgical Procedures Audit 10/11/18 09:33:24 Cardroom Supervisor: [id number] Modifier: [id number] 1 <*> Procedure Lumbar Microdiscectomy 1 <+> Stop 10/11/18 09:21:35 Cardroom Supervisor: [id number] Modifier: [id number] 1 <*> Procedure Lumbar Microdiscectomy 1 <+> Specialty 10/11/18 09:04:26 Cardroom Supervisor: [id number] Modifier: [id number] <+> 1 Primary Procedure <+> 1 Primary Surgeon <+> 1 Start <+> 1 Wound Class <+> 1 Anesthesia Type <+> 1 Additional Procedure Description [facility] IntraOp Temp Regulation Devices Entry 1 Temp Regulation Temperature Forced Air Warming Regulation Device device Temperature Upper body Regulation Site Temperature Device 43 Setting Temperature CARLTON HARKINS V LINE OUT WORKER Regulation Device Applied by Last Modified By: [...] SJE IntraOp Time Out Audit 10/11/18 08:33:51 Cardroom Supervisor: [id number] Modifier: [id number] 1 <+> Beta Thalia Administered 1 <+> [...] Signed By: Chelsey Mae Rn-Surgery 10/11/18 09:39 documented in this encounter Plan of Treatment Not on file documented as of this encounter Visit Diagnoses Not on filedocumented in this encounter
--- OUTSIDE RECORDS SUMMARY | 2025-04-30 22:56 | XMS_ITS | Encounter Summary ---
Author Organization [employer] ([place], [place], [place], [place]) Address [address] [place] [address] Care Team Providers Care Launch Operator Name Role Phone Unavailable Primary Care Provider Unavailabl e Encounter Details Date Type Department Care Team (Late st Contact Info) Description 10/11/[address] [facility] [place] [facility] [place] [address] ProviderChula MD [address] [place] [address] Social History Tobacco Use Types [...] - Chula ProviderMD - 10/11/2018 8:13 AM DRILL INSTRUCTOR POLINA Main OR PostOp Summary Primary Physician: JUANY PRICE MD Finalized Date/Time: 10/11/18 13:49:18 Pt. Name: SHIVAM BERNARDO.B./Sex: 1985 Female Med Rec #: [id number] Physician: JUANY PRICE MD Financial #: [id number] Pt. Type: O Room/Bed: [facility] Admit/Disch: 10/11/18 04:54:00 - Institution: [facility] [place] PostOp Case Times Entry 1 In PACU II 10/11/18 11:36:00 Ready for PACU II 10/11/18 13:44:00 Discharge Discharge from PACU 10/11/18 13:44:00 II Last Modified By: Elba Ram Rn 10/11/18 13:49:17 S[facility]Carole Main OR PostOp Case Times Audit 10/11/18 13:49:17 Rubber Grinder: STEPH Modifier: STEPH <+> 1 Ready for PACU II Discharge <+> 1 Discharge from PACU II Finalized By: Elba Ram, Rn Document Signatures Signed By: Elba Ram Rn 10/11/18 13:49 Electronically signed by Hanane [place] Conversion Respiratory Equipment Assistant Cerner at 01/06/2023 5:02 PM CDT documented in this encounter Plan of Treatment Not on file documented as of this encounter Visit Diagnoses Not on filedocumented in this encounter
--- OUTSIDE RECORDS SUMMARY | 2025-04-30 22:57 | XMS_ITS | Encounter Summary ---
Author Organization [facility] Address [address] [place] [address] Care Team Providers Care Intranet Developer Name Role Phone Provider, No Known Primary Care Provider [phone] Encounter Details Date Type Department Care Team (Latest Contact Info) Description 04/30/2025 Travel Social History Tobacco Use Types Packs/Day [...] on filedocumented in this encounter Care Teams Intranet Developer Relationship Specialty Start Date End Date Provider, [place] [address] PCP - General 01/04/24 documented as of this encounter
--- OUTSIDE RECORDS SUMMARY | 2025-04-30 22:57 | XMS_ITS | Clinical Summary ---
Author Organization [facility] Address [address] [place] [address] Care Team Providers Care Coo & Co Founder Name Role Phone Rosemary Fuller Primary Care [...] of 2 - 13+ 2-dose series) 1998 [facility]- SDOH Screenings 2003 [facility]-Adult SDOH Screenings 2003 [facility]-Hepatitis B Vaccines (1 of 3 - 19+ 3-dose series) 2004 [facility]-Pneumococcal Vaccine: Pediatrics (0 to 5 Years) and At-Risk Patients (6 to 49 Years) (1 of 2 - PCV) 2004 [facility]-Pap Smear 2006 HPV Vaccines (1 - 3-dose SCDM series) 2012 [facility]-Cervical Cancer Screening 2015 [facility]-HPV/Cotest 2015 [facility]-Diabetes: Hemoglobin A1C 07/15/2019 01/15/2019 [facility]-DTaP,Tdap,and Td Vaccines (2 - Td or Tdap) 09/12/2023 09/12/2013 Colonoscopy 12/29/2023 12/29/2021, 11/13/2019 [id number] Vaccine ( - season) 2024 [facility]-Depression Screening [...] RN Endo Nurse Roberto Carlos Davis CRNA MANAGER OUTPATIENT, No role selected Kell Carrera RN Endo Nurse Mady Alvarez Endo Nurse James Morales MD Anesthesiologist MD Daniel Dinero MD Proceduralist Telecommunications Manager Unknown Endo Nurse 1 Endo Nurse Preprocedure [...] of bowel preparation was evaluated using the [place] Bowel Preparation Scale with scores of: right [...] were documented in this log. Findings Healthy [id number]-bpgr ileocolonic anastomosis with no bleeding The rectum [...] <6.0% Children and Adolescents <7.5% . Source: [place] [employer]. Standards of medical care in diabetes, 2017. Diabetes Care.2017:40 (suppl 1):S1-S135. . HbA1c assay performed by an ion-exchange chromatography method that is certified traceable to the DCCT. 01/15/2019 10:5 6 AM EDT 01/15/2019 12:16 PM EDT us Faith Ruth MD LAB BLOOD ORDERABLES Final Resu lt SUNQUEST from Last 3 Months or Most Recently Relevant to Health Maintenance Insurance [employer] BETTER [employer] MEDICAID Care Teams Coo & Co Founder Relationship Specialty Start Date End Date Rosemary Fuller PA [address] [place] [address] [place] [address] PCP - General 01/29/21
--- OUTSIDE RECORDS SUMMARY | 2025-04-30 22:57 | XMS_ITS | Clinical Summary ---
Author Organization [employer] ([place], [place], [place], [place]) Address [address] [place] [address] Care Team Providers Care Beam Saw Operator Name Role Phone Unavailable Primary Care [...]
--- OUTSIDE RECORDS SUMMARY | 2025-04-30 22:57 | XMS_ITS | Encounter Summary ---
Author Organization [facility] Address [address] [place] [address] Care Team Providers Care Route Driver Coin Machines Name Role Phone Provider, No Known Primary Care Provider Encounter Details Date Type Department Care Team [...] on filedocumented in this encounter Care Teams Route Driver Coin Machines Relationship Specialty Start Date End Date Provider, [place] [address] PCP - General 01/04/24 documented as of this encounter
--- OUTSIDE RECORDS SUMMARY | 2025-04-30 22:57 | XMS_ITS | Referral Summary ---
Author Organization [employer] ([place], [place], [place], [place]) Address [address] [place] [address] Care Team Providers Care Pc Network Technician Name Role Phone Unavailable Primary Care [...]
--- OUTSIDE RECORDS SUMMARY | 2025-04-30 22:57 | XMS_ITS | Encounter Summary ---
Author Organization [facility] Address [address] [place] [address] Care Team Providers Care Second Grade Teacher Name Role Phone Provider, No Known Primary Care Provider [phone] Encounter Details Date Type Department Care Team [...] on filedocumented in this encounter Care Teams Second Grade Teacher Relationship Specialty Start Date End Date Provider, [place] [address] PCP - General 01/04/24 documented as of this encounter
[2025-04-30 23:04] VITALS: BP 169/88; PULSE 80; RESP 20; TEMP 37.4; O2SAT 98; BMI 39.3
[2025-04-30 23:15] VITALS: BP 153/93; PULSE 80
[2025-04-30 23:30] VITALS: BP 115/45; PULSE 78
== END 2025-05-01 00:05 | disposition home or self-care (01) ==
LOC: OBOUT 22:55 → OB 22:55
PROVIDERS: PCP Nurse Practitioner; Visit Provider Nurse Practitioner Obstetrics & Gynecology
DX: O47.03 False labor before 37 completed weeks of gestation, third trimester (principal); Z3A.35 35 weeks gestation of pregnancy
CPT/HCPCS: 59025; 99212; G0463

== ENCOUNTER 2025-05-02 08:22 | Outpatient (CLI) | payer OTHER, SELFPAY ==
--- OUTSIDE RECORDS SUMMARY | 2025-03-25 15:00 | XMS_ITS | Encounter Summary ---
Author Organization [facility] Address [address] [place] [address] Care Team Providers Care Microbiological Lab Technician Name Role Phone Provider, No Known Primary Care Provider [phone] Reason for Visit * Diagnostic Imaging (Routine) - Closed Specialty Diagnoses / Procedures Referred By Carolyne diaz Referred To Contact Radiology Diagnoses Abnormal genetic test during Chronic hypertension affecting Procedures [facility] Bentley, Dominick Silva MD [address] [place] [address] Phone: tel: fax: Referral ID Status Reason Start Date Expiration Date Visits Re quested Visits Authorized [id number] Closed 12/30/2024 03/31/2026 4 4 Encounter Details Date Type Department Care Team (Latest Contact Info) Description 03/25/2025 3:00 PM EDT - 03/25/2025 11:59 PM EDT Hospital Encounter [facility] [address] [place] [address] Wilber Bender, [address] [facility] [address] [id number] Discharge Disposition: Home or Self Care Social [...] Procedure Name Priority Date/Time Associated Diagnosis Comments [facility] Routine 03/25/2025 3:56 PM EDT Abnormal genetic test during Chronic hypertension affecting documented in this encounter Results * [facility] (03/25/2025 3:56 PM EDT) Anatomical Region Laterality Modality Ultrasound 03/25/2025 3:25 PM EDT Narrative 03/25/2025 4:18 PM EDT PAT NAME: SHIVAM BERNARD MED REC#: [id number] DA: [id number] PAT GEND: F PAT TYPE: O EXAM ALIREZA: [id number] REF PHYS LIVIA WILBER Comparison Studies The [...] EFW (oz) 13 oz EFW by: Hadlock ([id number]) Extended Tibia 45.8 mm 27w 6d 2% Bella Fibula 45.4 mm 28w 1d 15% Bella Foot 57.5 mm 9% Chitty Radius 37.7 mm 26w 2d 14% Bella Ulna 41.3 mm 26w 6d <1% Bella Cav. septi pel. tr 5.5 mm Dance Choreographer 3.8 mm CM 4.7 mm 3% Nicolaides [...] (one being BPP/BHAVYA/UA dopplers). Coding ======= Description: 93336-71 Follow Up Ultrasound Description: 05839-90 BPP without NST Description: 05766-61 Doppler Umbilical Artery Cake Stripper: Yoly Choudhary RDMS Physician: Dominick Bentley MD, FACOG Electronically signed by: Dominick Bentley MD, FACOG at: 16:18 Procedure Note Dominick Bentley MD - 03/25/2025 PAT NAME: SHVIAM BERNARD MED REC#: [id number] DA: [id number] PAT GEND: F PAT TYPE: O EXAM ALIREZA: [id number] REF PHYS WILBER BENDER Comparison Studies The findings of this study are compared to the prior ultrasound studydated 02/25/25. Patient Status Outpatient Indication ======== Abnormal NIPT (high risk triploidy, T13, T18.) AMA. CHTN. Hx preeclampsia& PTD (32 & 35 wk). Obesity BMI 39. Maternal Assessment Vgzhxj303 cm Height (ft)5 ft Height (in)3 in Gcfupq709 kg Weight (lb)227 lb BMI40.22 kg/m Method ======= Transabdominal ultrasound examination ========= Black . Number of fetuses: 1 Dating ====== GA by prior [id number] w + 6 d ARIA by prior [...] GA30 w + 6 d Assigned ARIA:05/28/2025 [id number] d Biometry Standard BPD74.1 mm 29w 5d 11% Hadlock OFD93.7 mm 30w 2d 33% Bella HC267.1 mm 29w 1d <1% Hadlock Cerebellum tr38.6 mm 31w 3d 48% Hill AC252.3 mm 29w 3d 11% Hadlock Femur51.2 mm 27w 3d <1% Hadlock Lluuxlu24.3 mm 26w 2d <1% Bella HC / AC1.06 EFW1,278 g 28w 3d 3% Hadlock EFW (lb)2 lb EFW (oz)13 oz EFW by:Hadlock (YJP-[id number]-FL) Extended Tibia45.8 mm 27w 6d 2% Bella Nhiiln57.4 mm 28w 1d 15% Bella Foot57.5 mm 9% Chitty Vanwiz10.7 mm 26w 2d 14% Bella Ulna41.3 mm 26w 6d <1% Bella Cav. septi pel. tr5.5 mm Vp3.8 mm CM4.7 mm 3% Nicolaides Head / Face / Neck Cephalic index0.79 46% Nicolaides Extremities / Bony Struc FL / BPD0.69 FL / HC0.19 FL / AC0.20 Other Structures AVM586 bpm General Evaluation Cardiac activity present. FHR [...] office (one being BPP/BHAVYA/UA dopplers). Coding ======= Description:95221-63 Follow Up Ultrasound Description:93291-30 BPP without NST Description:26699-49 Doppler Umbilical Artery Cake Stripper: Yoly Choudhary RDMS Physician: Dominick Bentley MD, FACOG Electronically signed by: Dominick Bentley MD, FACOG at: 16:18 us Dominick Bentley MD IMG US ORDERABLES Final Result documented in this encounter Visit Diagnoses Not on filedocumented in this encounter Care Teams Microbiological Lab Technician Relationship Specialty Start Date End Date Provider, No Known [address] [id number] PCP - General 01/04/24 documented as of this encounter
--- OUTSIDE RECORDS SUMMARY | 2025-03-25 15:00 | XMS_ITS | Encounter Summary ---
Author Organization [facility] Address [address] [place] [address] Care Team Providers Care Capping Machine Operator Name Role Phone Provider, No Known Primary Care Provider [phone] Reason for Visit * Reason Comments ama, CHTN, ABN NIPT Encounter Details Date Type Department Care Team (Late st Contact Info) Description 03/25/2025 3:00 PM EDT Office Visit [facility] MATERNAL MEDICINE [address] [facility] [address] [place] [address] Dominick Bentley MD [address] [facility] [address] [place] [address] Poor growth affecting management of mother in [...] given her abnormal NIPT this could be pharmaceutical service representative of that testing. As of [...] that CMV testing was performed with primary LYE BOILER and she said that the IgM was positive and that the antibody was high though we do not have records of this. This could be indicative of IgM with high avidity which could be pharmaceutical service representative of new infection though patient [...] Kala Beltran : 1985 Referring Provider: Jocelyn Benedr DO Chief Complaint ama, CHTN, ABN NIPT [...] given her abnormal NIPT this could be pharmaceutical service representative of that testing. As of [...] that CMV testing was performed with primary LYE BOILER and she said that the IgM was positive and that the antibody was high though we do not have records of this. This could be indicative of IgM with high avidity which could be pharmaceutical service representative of new infection though patient [...] or sooner if clinically indicated. Orders: - [facility]; Standing 2. Chronic hypertension affecting Assessment & Plan: Patient presents for follow-up growth ultrasound secondary to AMA, chronic hypertension, abnormal NIPT. Blood sugar today 127/80. Orders: - [facility]; Standing 3. Antepartum multigravida of advanced maternal age - [facility]; Standing 4. Abnormal genetic test during Follow [...] CVS. Dominick Bentley MD, FACOG Maternal Medicine, [facility] documented in this encounter Plan of Treatment Not on file documented as of this encounter Visit Diagnoses Diagnosis Poor growth affecting management of mother in third trimester, single or unspecified fetus- Primary Chronic hypertension affecting Antepartum multigravida of advanced maternal age Abnormal genetic test during documented in this encounter Care Teams Capping Machine Operator Relationship Specialty Start Date End Date Provider, [place] [address] PCP - General 01/04/24 documented as of this encounter
--- OUTSIDE RECORDS SUMMARY | 2025-04-08 14:33 | XMS_ITS | Encounter Summary ---
Author Organization [facility] Address [address] [place] [address] Care Team Providers Care Academic Program Specialist Name Role Phone Provider, No Known Primary Care Provider [phone] Reason for Referral * Diagnostic Imaging (Routine) - Closed Specialty Diagnoses / Procedures Referred By Carolyne diaz Referred To Contact Radiology Diagnoses Abnormal genetic test during Chronic hypertension affecting Procedures [facility] Dominick Bentley MD [address] [place] [address] Phone: tel: fax: Referral ID Status Reason Start Date Expiration Date Visits Re quested Visits Authorized [id number] Closed 12/30/2024 03/31/2026 4 4 Reason for Visit * Diagnostic Imaging (Routine) - Closed Specialty Diagnoses / Procedures Referred By Carolyne diaz Referred To Contact Radiology Diagnoses Abnormal genetic test during Chronic hypertension affecting Procedures [facility] [place] Dominick Bentley MD [address] [facility] [address] [place] [address] Phone: tel: fax: Referral ID Status Reason Start Date Expiration Date Visits Re quested Visits Authorized [id number] Closed 12/30/2024 03/31/2026 4 4 Encounter Details Date Type Department Care Team (Late st Contact Info) Description 04/08/2025 2:33 PM EDT - 04/08/2025 11:59 PM EDT Hospital Encounter [facility] [address] [place] [address] Dominick Bentley MD [address] [place] [address] Abnormal genetic test during ; Chronic hypertension affecting Discharge Disposition: Home or Self Care Social [...] Procedure Name Priority Date/Time Associated Diagnosis Comments [facility] Routine 04/08/2025 3:27 PM EDT Abnormal genetic test during Chronic hypertension affecting documented in this encounter Results * [facility] (04/08/2025 3:27 PM EDT) Anatomical Region Laterality Modality Ultrasound 04/08/2025 3:10 PM EDT Narrative 04/09/2025 12:30 PM EDT PAT NAME: SHIVAM BERNARD MED REC#: [id number] DA: [id number] PAT GEND: F PAT TYPE: O EXAM ALIREZA: [id number] REF PHYS WILBER BHAKTA Comparison Studies The findings of this study are compared to the prior ultrasound study dated 03/25/25 Patient Status Outpatient Indication ======== AMA. CHTN. Follow up IUGR. Abnormal NIPT (high risk triploidy, T13, T18.) Hx preeclampsia & PTD (32 & 35 wk). Morbid obesity BMI 40. Maternal Assessment Height 160 cm Height (ft) 5 ft Height (in) 3 in Weight 103 kg Weight (lb) 227 lb BMI 40.22 kg/m Method ======= Transabdominal ultrasound examination. View: Adequate view ========= Black . Number of fetuses: 1 Dating ====== Method of dating: based on stated ARIA GA by prior assessment 32 w + 6 d ARIA by prior assessment: 05/28/2025 Ultrasound examination on: 04/08/2025 GA by U/S based upon: AC, BPD, Femur, HC GA by U/S 31 w + 4 d ARIA by U/S: 06/06/2025 Previous dating: based on stated ARIA, selected on 02/25/2025 Agreed ARIA of previous datin05/28/2025 Assigned: based on stated ARIA, selected on 04/08/2025 Assigned GA 32 w + 6 d Assigned ARIA: 05/28/2025 length 280 d Biometry Standard BPD 80.2 mm 32w 1d 24% Hadlock OFD 98.4 mm 31w 6d 23% Bella HC 287.0 mm 31w 4d 2% Hadlock Cerebellum tr 41.5 mm 32w 6d 31% Hill AC 273.7 mm 31w 3d 14% Hadlock Femur 59.6 mm 31w 0d 5% Hadlock Humerus 53.1 mm 30w 6d 13% Bella HC / AC 1.05 EFW 1,758 g 31w 0d 9% Hadlock EFW (lb) 3 lb EFW (oz) 14 oz EFW by: Hadlock (JKC-JN-US-FL) Extended Cav. septi pel. tr 4.9 mm Dietitian Teacher 5.2 mm CM 8.0 mm 70% Nicolaides Head / Face / Neck Cephalic index 0.82 66% Nicolaides Extremities / Bony Struc FL / BPD 0.74 FL / HC 0.21 FL / AC 0.22 Other Structures FHR 145 bpm General Evaluation Cardiac activity present. FHR 145 bpm. movements present. Presentation cephalic. Placenta Placental site: posterior. Amniotic fluid Amount of AF: normal. MVP 4.6 cm. BHAVYA 11.7 cm. Q1 4.6 cm, Q2 3.6 cm, Q3 0.0 cm, Q4 3.5 cm. Anatomy Cranium: Normal Cavum septi pellucidi: Normal Cerebellum: Normal Cisterna magna: Normal Head / Neck Rt lateral ventricle: Normal Lt lateral ventricle: Normal Lips: Normal Profile: Normal Nose: Normal 4-chamber view: Appears normal RVOT view: suboptimal LVOT view: suboptimal Heart / Thorax 4-chamber view: patent foramen ovale Stomach: Appears normal Kidneys: Appears normal Bladder: Appears normal Gender: female Wants to know gender: yes Doppler Arterial Umbilical A PI 1.05 79% Yang Umbilical A RI 0.66 75% Yang Umbilical A PS 37.43 cm/s 7% Ebbing Umbilical A ED -13.72 cm/s Umbilical A TAmax -23.16 cm/s Umbilical A MD -13.42 cm/s Umbilical A S / D 2.92 67% Yang Umbilical A HR 141 bpm Biophysical Profile 2: breathing movements 2: Gross body movements 2: tone 2: Amniotic fluid volume 04/25 Biophysical profile score Consultation / Office Visit Office note to follow Impression Cephalic S<D - mild IUGR Normal fluid BPP 04/25 UA doppler normal Recommendation Twice weekly testing in your office recommended Follow up growth in 3 weeks scheduled Coding ======= Description: 35477-63 Follow Up Ultrasound Description: 97565-60 BPP without NST Description: 33721-13 Doppler Umbilical Artery Sprinkler Irrigation Equipment Mechanic: Josephine Gonzales RDMS Physician: Jessica Alejandra MD, FACOG Electronically signed by: Jessica Alejandra MD, FACOG at: 12:30 Procedure Note Jessica Alejandra MD - 04/09/2025 PAT NAME: SHIVAM BERNARD MED REC#: [id number] DA: [id number] PAT GEND: F PAT TYPE: O EXAM ALIREZA: [id number] REF PHYS WILBER BHAKTA Comparison Studies The findings of this study are compared to the prior ultrasound studydated 03/25/25 Patient Status Outpatient Indication ======== AMA. CHTN. Follow up IUGR. Abnormal NIPT (high risk triploidy, T13, T18.)Hx preeclampsia & PTD (32 & 35 wk). Morbid obesity BMI 40. Maternal Assessment Upvazh956 cm Height (ft)5 ft Height (in)3 in Jkbadx815 kg Weight (lb)227 lb BMI40.22 kg/m Method ======= Transabdominal ultrasound examination. View: Adequate view ========= Black . Number of fetuses: 1 Dating ====== Method of dating:based on stated ARIA GA by prior [id number] w + 6 d ARIA by prior assessment:05/28/2025 Ultrasound examination on:04/08/2025 GA by U/S based upon:AC, BPD, Femur, HC GA by U/S31 w + 4 d ARIA by U/S:06/06/2025 Previous dating:based on stated ARIA, selected on 02/25/2025 Agreed ARIA of previous datin05/28/2025 Assigned:based on stated ARIA, selected on 04/08/2025 Assigned GA32 w + 6 d Assigned ARIA:05/28/2025 [id number] d Biometry Standard BPD80.2 mm 32w 1d 24% Hadlock OFD98.4 mm 31w 6d 23% Bella HC287.0 mm 31w 4d 2% Hadlock Cerebellum tr41.5 mm 32w 6d 31% Hill AC273.7 mm 31w 3d 14% Hadlock Femur59.6 mm 31w 0d 5% Hadlock Iksfjcu27.1 mm 30w 6d 13% Bella HC / AC1.05 EFW1,758 g 31w 0d 9% Hadlock EFW (lb)3 lb EFW (oz)14 oz EFW by:Hadlock (VOS-NL-VA-FL) Extended Cav. septi pel. tr4.9 mm Vp5.2 mm CM8.0 mm 70% Nicolaides Head / Face / Neck Cephalic index0.82 66% Nicolaides Extremities / Bony Struc FL / BPD0.74 FL / HC0.21 FL / AC0.22 Other Structures [id number] bpm General Evaluation Cardiac activity present. FHR 145 bpm. movements present. Presentation cephalic. Placenta Placental site: posterior. Amniotic fluid Amount of AF: normal. MVP 4.6 cm. BHAVYA 11.7 cm. Q1 4.6 cm,Q2 3.6 cm, Q3 0.0 cm, Q4 3.5 cm. Anatomy Cranium:Normal Cavum septi pellucidi:Normal Cerebellum:Normal Cisterna magna:Normal Head / Neck Rt lateral ventricle:Normal Lt lateral ventricle:Normal Lips:Normal Profile:Normal Nose:Normal 4-chamber view:Appears normal RVOT view:suboptimal LVOT view:suboptimal Heart / Thorax 4-chamber view:patent foramen ovale Stomach:Appears normal Kidneys:Appears normal Bladder:Appears normal Gender:female Wants to know gender:yes Doppler Arterial Umbilical A PI1.05 79% Yang Umbilical A RI0.66 75% Yang Umbilical A PS37.43 cm/s 7% Ebbing Umbilical A ED-13.72 cm/s Umbilical A TAmax-23.16 cm/s Umbilical A MD-13.42 cm/s Umbilical A S / D2.92 67% Yang Umbilical A HR141 bpm Biophysical Profile 2: breathing movements 2: Gross body movements 2: tone 2: Amniotic fluid volume 8/8 Biophysical profile score Consultation / Office Visit Office note to follow Impression Cephalic S<D - mild IUGR Normal fluid BPP 8/8 UA doppler normal Recommendation Twice weekly testing in your office recommended Follow up growth in 3 weeks scheduled Coding ======= Description:19748-50 Follow Up Ultrasound Description:04850-08 BPP without NST Description:46620-16 Doppler Umbilical Artery Sprinkler Irrigation Equipment Mechanic: Josephine Gonzales RDMS Physician: Jessica Alejandra MD, FACOG Electronically signed by: Jessica Alejandra MD, FACOG at: 2312:30 Dominick Bentley MD G US ORDERABLES Final Result documented in this encounter Visit Diagnoses Diagnosis Abnormal genetic test during Chronic hypertension affecting documented in this encounter Care Teams Academic Program Specialist Relationship Specialty Start Date End Date Provider, [place] [address] PCP - General 01/04/24 documented as of this encounter
--- OUTSIDE RECORDS SUMMARY | 2025-04-08 14:45 | XMS_ITS | Encounter Summary ---
[facility] [address] [place] [address] Care Team Providers Care Hosiery Mater Name Role Phone Provider, No Known Primary Care Provider [phone] Reason for Visit * Reason Comments CHTN, AMA, abn NIPT, MO, hx PreE, IUGR Encounter Details Date Type Department Care Team (Late st Contact Info) Description 04/08/2025 2:45 PM EDT Office Visit [facility] MAT[facility]NAL MEDICINE [address] [address] Jessica Alejandra MD [address] [phone] Chronic hypertension affecting (Primary Dx); Antepartum multigravida [...] CVS. Jessica Alejandra MD FACOG Maternal Medicine, [facility] 04/08/2025 documented in this encounter Plan of Treatment Not on file documented as of this encounter Visit Diagnoses Diagnosis Chronic hypertension affecting - Primary Antepartum multigravida of advanced maternal age Abnormal genetic test during Poor growth affecting management of mother in third trimester, single or unspecified fetus documented in this encounter Care Teams Hosiery Mater Relationship Specialty Start Date End Date Provider, [place] [address] PCP - General 01/04/24 documented as of this encounter
--- OUTSIDE RECORDS SUMMARY | 2025-04-30 15:18 | XMS_ITS | Encounter Summary ---
[facility] Address [address] [place] [address] Care Team Providers Care Debrander Name Role Phone Provider, No Known Primary Care Provider Reason for Visit * Diagnostic Imaging (Routine) - Canceled Specialty Diagnoses / Procedures Referred By Contac t Referred To Contact Radiology Diagnoses Chronic hypertension affecting Antepartum multigravida of advanced maternal age Poor growth affecting management of mother in third trimester, single or unspecified fetus Procedures US [facility] Bentley, Dominick Silva MD [address] [place] [address] Phone: tel: fax: [facility] US PER DIAG [facility] [address] [place] [address] Phone: tel: Referral ID Status Reason Start Date Expiration Date V isits Requested Visits Authorized [id number] Canceled 03/25/2025 06/24/2026 3 3 Encounter Details Date Type Department Care Team (Latest Contact Info) Description 04/30/2025 3:18 PM EDT - 04/30/2025 11:59 PM EDT Hospital Encounter [facility] PER DI[facility] [address] [place] [address] Wilber Bender, DO [address] [facility] [address] [phone] Discharge Disposition: Home or Self Care Social [...] fetus documented in this encounter Results * [facility] (04/30/2025 3:41 PM EDT) Anatomical Region Laterality Modality Ultrasound 04/30/2025 3:28 PM EDT Narrative 04/30/2025 3:55 PM EDT PAT NAME: SHIVAM BERNARD REC#: [id number] DA: [id number] PAT GEND: F PAT TYPE: O EXAM ALIREZA: [id number] REF PHYS WILBER BENDER Comparison Studies The [...] EFW (oz) 3 oz EFW by: Hadlock (LDE-RR-PG-FL) Extended Cav. septi pel. tr 5.3 mm Dish Up Person 6.3 mm Head / Face / Neck [...] 4-chamber view: Appears normal Heart / Thorax 2-tvebfw-mcdgipx view: Appears normal Cord insertion: Normal Stomach: [...] Follow-up as clinically indicated. Coding ======= Description: 72000-13 Follow Up Ultrasound Description: 86928-63 BPP without NST Description: 52163-32 Doppler Umbilical Artery Salesperson Women'S Dresses: RT Minerva Salmon , [facility] Physician: Jessica Alejandra MD, FACOG Electronically signed by: Jesisca Alejandra MD, FACOG at: 15:55 Procedure Note Jessica Alejandra MD - 04/30/2025 PAT NAME: SHIVAM BERNARD MED REC#: [id number] DA: [id number] PAT GEND: F PAT TYPE: O EXAM ALIREZA: [id number] REF PHYS WILBER BENDER Comparison Studies The findings of this study are compared to the prior ultrasound studydated 04/08/25 Patient Status Outpatient Indication ======== AMA. CHTN. Follow up IUGR. Abnormal NIPT (high risk triploidy, T13, T18.)Hx preeclampsia & PTD (32 & 35 wk). Morbid obesity BMI 41. Maternal Assessment Sommxg200 cm Height (ft)5 ft Height (in)3 in Hfmmvz120 kg Weight (lb)232 lb BMI41.11 kg/m Method ======= Transabdominal ultrasound examination. View: Suboptimal view: limited bylate gestational age ========= Black . Number of fetuses: 1 Dating ====== Method of dating:based on stated ARIA GA by prior trwkfhkrbi17 w + 0 d ARIA by prior assessment:05/28/2025 Ultrasound examination on:04/30/2025 GA by U/S based upon:AC, BPD, Femur, HC GA by U/S34 w + 1 d ARIA by U/S:06/10/2025 Previous dating:based on stated ARIA, selected on 04/08/2025 Agreed ARIA of previous datin05/28/2025 Assigned:based on stated ARIA, selected on 04/30/2025 Assigned GA36 w + 0 d Assigned ARIA:05/28/2025 rlcaah025 d Biometry Standard BPD84.9 mm 34w 1d 13% Hadlock DNI525.1 mm 34w 4d 18% Bella HC303.8 mm 33w 5d <1% Hadlock AC301.8 mm 34w 1d 12% Hadlock Femur66.7 mm 34w 2d 10% Hadlock Awwroev52.3 mm 34w 3d 29% Bella HC / AC1.01 EFW2,363 g 34w 0d 11% Hadlock EFW (lb)5 lb EFW (oz)3 oz EFW by:Hadlock ([id number]-ZI-TS-FL) Extended Cav. septi pel. tr5.3 mm Vp6.3 mm Head / Face / Neck Cephalic index0.81 44% Nicolaides Extremities / Bony Struc FL / BPD0.79 FL / HC0.22 FL / AC0.22 Other Structures FYN695 bpm General Evaluation Cardiac activity present. FHR [...] Lips:Normal 4-chamber view:Appears normal Heart / Thorax 3-qcoyqd-zeggojo view:Appears normal Cord insertion:Normal Stomach:Appears normal Kidneys:Appears [...] Recommendation Follow-up as clinically indicated. Coding ======= Description:82981-36 Follow Up Ultrasound Description:26946-11 BPP without NST Description:73141-60 Doppler Umbilical Artery Salesperson Women'S Dresses: RT Minerva Salmon , [facility] Physician: Jessica Alejandra MD, FACOG Electronically signed by: Jessica Alejandra MD, FACOG at: /1315:55 us Dominick Bentley MD IMG US ORDERABLES Final Result documented in this encounter Visit Diagnoses Not on filedocumented in this encounter Care Teams Debrander Relationship Specialty Start Date End Date Provider, [place] [address] PCP - General 01/04/24 documented as of this encounter
--- OUTSIDE RECORDS SUMMARY | 2025-04-30 15:30 | XMS_ITS | Encounter Summary ---
[facility] Address [address] [place] [address] Care Team Providers Care Paralegals Name Role Phone Provider, No Known Primary Care Provider [phone] Reason for Visit * Reason Comments AMA; MO; CHTN; abnormal NIPT; hx preecla mpsia; IUGR Encounter Details Date Type Department Care Team (Late st Contact Info) Description 04/30/2025 3:30 PM EDT Office Visit [facility] MATERNAL MEDICINE [address] [address] Jessica Alejandra MD [address] [place] [phone] Chronic hypertension affecting (Primary Dx) Social History [...] [facility] Jessica Alejandra MD FACOG Maternal Medicine, [facility] 04/30/2025 documented in this encounter Plan of Treatment Not on file documented as of this encounter Visit Diagnoses Diagnosis Chronic hypertension affecting - Primary documented in this encounter Care Teams Paralegals Relationship Specialty Start Date End Date Provider, [place] [address] PCP - General 01/04/24 documented as of this encounter
--- OUTSIDE RECORDS SUMMARY | 2025-05-06 08:40 | XMS_ITS | Encounter Summary ---
Author Organization [employer] ([place], [place], [place], [place]) Address [address] [place] [address] Care Team Providers Care Application Support Analyst Name Role Phone Unavailable Primary Care Provider Unavailabl e Encounter Details Date Type Department Care Team (Late st Contact Info) Description 10/11/2018 Transcribed Document [facility] Family Medicine [facility] [place] [address] ProviderChula MD [address] [place] [address] Social History Tobacco Use [...] - Historical ProviderMD - 10/11/2018 6:33 AM DEEP SUBMERGENCE VEHICLE OPERATOR Pre Procedure Adult Entered On: 10/11/2018 6:47 EST Performed On: 10/11/2018 6:33 EST by Naa Alonso Nurse - denise Height and Weight, Clinical Dosing Height Source : Stated Height Entry Format : [place] Height, Feet : 5 ft(Converted to: 152 cm, 60 Inch) Height, Inches : 4 Inch(Converted to: 0 ft 4 Inch, 10.16 cm) Clinical Height : 162.56 cm Weight Source : Standing scale Weight Entry Format : [place] Clinical Dosing Weight : 87.73 kg Weight, Pounds : 193 lb Body Surface Area (BSA) : 1.93 m2 Body Mass Index : 33.2 kg/m2 ([place]) [place] Body Weight : 54 kg Naa Alonso [...] Obtained From : Patient Primary Language : Bruneian Preferred Communication Mode : Verbal Communication Barrier [...] Scale Risk Level : 0-24 Low Risk [place] Fall Interventions : Adequate lighting, Call device [...]
--- OUTSIDE RECORDS SUMMARY | 2025-05-06 08:40 | XMS_ITS | Encounter Summary ---
Author Organization [employer] ([place], [place], [place], [place]) Address [address] [place] [address] Care Team Providers Care Motor And Controls Tester Name Role Phone Unavailable Primary Care Provider Unavailabl e Encounter Details Date Type Department Care Team (Late st Contact Info) Description 10/11/2018 Transcribed Document [facility] Family Medicine [facility] [place] [address] ProviderChula MD [address] [place] [address] Social History Tobacco Use Types [...] - Historical ProviderMD - 10/11/2018 6:12 AM SAP ENTERPRISE PORTAL CONSULTANT Pediatric Growth Entered On: 10/11/2018 6:12 EST Performed On: 10/11/2018 6:12 EST by Michelle Le 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 Height and Weight, Clinical Dosing Height Source : Stated Height Entry Format : [place] Height, Feet : 5 ft(Converted to: 152 cm, 60 Inch) Height, Inches : 4 Inch(Converted to: 0 ft 4 Inch, 10.16 cm) Clinical Height : 162.56 cm Weight Source : Standing scale Weight Entry Format : [place] Clinical Dosing Weight : 87.73 kg Weight, Pounds : 193 lb Body Surface Area (BSA) : 1.93 m2 Body Mass Index : 33.2 kg/m2 ([place]) [place] Body Weight : 54 kg Michelle Le 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
--- OUTSIDE RECORDS SUMMARY | 2025-05-06 08:40 | XMS_ITS | Encounter Summary ---
Author Organization [employer] ([place], [place], [place], [place]) Address [address] [place] [address] Care Team Providers Care Vocational Examiner Name Role Phone Unavailable Primary Care Provider Unavailabl e Encounter Details Date Type Department Care Team (Late st Contact Info) Description 10/11/2018 Transcribed Document [place] Family Medicine [facility] [place] [address] ProviderChula MD [address] [place] [address] Social History Tobacco Use Types [...] Chula ProviderMD - 10/11/2018 8:13 AM STAFF TECHNOLOGIST POLINA Main OR PostOp Summary Primary Physician: JUANY PRICE MD Finalized Date/Time: 10/11/18 13:49:18 Pt. Name: SHIVAM BERNARDO.B./Sex: 1985 Female Med Rec #: [id number] Physician: JUANY PRICE MD Financial #: [id number] Pt. Type: O Room/Bed: [facility] Admit/Disch: 10/11/18 04:54:00 - Institution: [facility] Main OR PostOp Case Times Entry 1 In PACU II 10/11/18 11:36:00 Ready for PACU II 10/11/18 13:44:00 Discharge Discharge from PACU 10/11/18 13:44:00 II Last Modified By: Elba Ram Rn 10/11/18 13:49:17 S[facility]Carole Main OR PostOp Case Times Audit 10/11/18 13:49:17 Floor Sweeper: STEPH Modifier: [email or web address] <+> 1 Ready for PACU II Discharge <+> 1 Discharge from PACU II Finalized By: Elba Ram, Rn Document Signatures Signed By: Elba Ram Rn 10/11/18 13:49 Electronically signed by Hanane [facility] Conversion Pbx Mechanic Cerner at 01/06/2023 5:02 PM CDT documented in this encounter Plan of Treatment Not on file documented as of this encounter Visit Diagnoses Not on filedocumented in this encounter
--- OUTSIDE RECORDS SUMMARY | 2025-05-06 08:41 | XMS_ITS | Encounter Summary ---
Author Organization [employer] ([place], [place], [place], [place]) Address [address] [place] [address] Care Team Providers Care Back Tender Paper Machine Name Role Phone Unavailable Primary Care Provider Unavailabl e Encounter Details Date Type Department Care Team (Late st Contact Info) Description 09/27/2018 Transcribed Document [facility] [place] [address] ProviderChula MD [address] [place] [address] Social History Tobacco Use Types [...] - Chula ProviderMD - 09/27/2018 10:11 AM CONTROL AND RECOVERY COMBAT RESCUE PAT Adult Entered On: 09/27/2018 10:15 EST [...] : Stated Height Entry Format : [place] Height, Feet : 5 ft(Converted to: 152 cm, 60 Inch) Height, Inches : 4 Inch(Converted to: 0 ft 4 Inch, 10.16 cm) Clinical Height : 162.56 cm Weight Source : Standing scale Weight Entry Format : [place] Clinical Dosing Weight : 88.18 kg Weight, Pounds : 194 lb Body Surface Area (BSA) : 1.93 m2 Body Mass Index : 33.4 kg/m2 ([place]) [place] Body Weight : 54 kg Veronica Marin [...] : No, patient refuses Advance Directive information Veroniac Marin RN - 09/27/2018 10:11 EST Spiritual/Cultural [...] Obtained From : Patient Primary Language : Lithuanian Preferred Communication Mode : Verbal Communication Barrier [...]
--- OUTSIDE RECORDS SUMMARY | 2025-05-06 08:41 | XMS_ITS | Encounter Summary ---
Author Organization [employer] ([place], [place], [place], [place]) Address [address] [place] [address] Care Team Providers Care Worship Pastor Name Role Phone Unavailable Primary Care Provider Unavailabl e Encounter Details Date Type Department Care Team (Late st Contact Info) Description 10/11/2018 Transcribed Document [facility] [facility] [place] [address] ProviderChula MD [address] [place] [address] Social History Tobacco Use Types [...] - Chula ProviderMD - 10/11/2018 8:13 AM TINSEL MACHINE OPERATOR POLINA Main OR IntraOp Summary Primary Physician: JUANY PRICE MD Finalized Date/Time: 10/11/18 09:39:55 Pt. Name: RAIN BERNARDLONNIE Acevedo /Sex: 1985 Female Med Rec #: [id number] Physician: JUANY PRICE MD Financial #: [id number] Pt. Type: O Room/Bed: [facility] Admit/Disch: 10/11/18 04:54:00 - Institution: [facility] IntraOp Case Attendance Entry 1 Entry 2 Entry 3 Case Attendee JUANY PRICE MD BRUNNER, RICHARD V, Chelsey Bran Rn-Surgery Role Performed Surgeon/Proceduralist, PIPE INSULATOR/Nurse Blemish Remover Information Resources Director, First First Time In 10/11/18 07:39:00 10/11/18 [...] BRUNER, HAVEN Role Performed Scrub, First Physician home care assistant Pullman Conductor Time In 10/11/18 07:39:00 10/11/18 07:39:00 10/11/18 07:39:00 Time Out 10/11/18 09:33:00 10/11/18 09:33:00 10/11/18 09:33:00 Procedure Lumbar Microdiscectomy Lumbar Microdiscectomy Lumbar Microdiscectomy Other Attendee Superficial Wound Closed By: Last Modified By: Chelsey Mae Demike, Cynthia Y, Demike, Cynthia Y, Rn-Surgery 10/11/18 Rn-Surgery 10/11/18 Rn-Surgery 10/11/18 09:33:47 09:33:47 09:33:47 Entry 7 Entry 8 Case Attendee FABIAN CRUZ, RN [address] Role Performed Information Resources Director, Second Scrub, Second Time In 10/11/18 08:48:00 10/11/18 09:02:00 Time Out 10/11/18 09:02:00 10/11/18 09:33:00 Procedure Lumbar Microdiscectomy Lumbar Microdiscectomy Other Attendee Superficial Wound Closed By: Last Modified By: Chelsey Mae Demike, Cynthia Y, Rn-Surgery 10/11/18 Rn-Surgery 10/11/18 09:33:47 09:33:47 [facility] IntraOp Case Attendance Audit 10/11/18 09:33:47 Vein Access Technician: [id number] Modifier: [id number] <*> Procedure Lumbar Microdiscectomy 2 <+> [...] 8 <*> Procedure Lumbar Microdiscectomy 10/11/18 09:21:03 Vein Access Technician: [id number] Modifier: [id number] 1 <+> Time Out 1 <*> Procedure Lumbar Microdiscectomy 10/11/18 09:04:27 Vein Access Technician: [id number] Modifier: [id number] <+> 1 Procedure 2 <*> Procedure Lumbar Microdiscectomy 3 <*> Procedure Lumbar Microdiscectomy 4 <*> Procedure Lumbar Microdiscectomy 5 <*> Procedure Lumbar Microdiscectomy 6 <*> Procedure Lumbar Microdiscectomy 7 <*> Procedure Lumbar Microdiscectomy 8 <*> Procedure Lumbar Microdiscectomy 10/11/18 09:04:05 Vein Access Technician: [id number] Modifier: [id number] <+> 7 Case Attendee <+> 7 Role Performed <+> 7 Time In <+> 7 Time Out <+> 7 Procedure <+> 8 Case Attendee <+> 8 Role Performed <+> 8 Time In <+> 8 Procedure 10/11/18 08:29:38 Vein Access Technician: [id number] Modifier: [id number] <*> Procedure Lumbar Microdiscectomy 3 <*> Procedure Lumbar Microdiscectomy 4 <*> Procedure Lumbar Microdiscectomy 5 <*> Procedure Lumbar Microdiscectomy 6 <+> Time In 6 <*> Procedure Lumbar Microdiscectomy 10/11/18 08:24:25 Vein Access Technician: [id number] Modifier: [id number] 2 <*> Procedure Lumbar Microdiscectomy 3 <*> Procedure Lumbar Microdiscectomy 4 <*> Procedure Lumbar Microdiscectomy 5 <+> Time In 5 <*> Procedure Lumbar Microdiscectomy <+> 6 Case Attendee <+> 6 Role Performed <+> 6 Procedure 10/11/18 08:13:49 Vein Access Technician: [id number] Modifier: [id number] <+> 1 Time In 2 <+> Time [...] [facility] IntraOp Case Times Audit 10/11/18 09:33:44 Vein Access Technician: [id number] Modifier: [id number] <+> 1 Out Room Time <+> 1 Stop Time 10/11/18 09:33:20 Vein Access Technician: [id number] Modifier: [id number] <+> 1 Stop Time 10/11/18 08:13:56 Vein Access Technician: [id number] Modifier: [id number] <+> 1 Start Time [facility] IntraOp Cautery [...] 08:35:57 S[facility] IntraOp Cautery Audit 10/11/18 08:35:57 Vein Access Technician: [id number] Modifier: [id number] 1 <*> Grounding Pad Site Right Lower [...] S[facility] IntraOp Counts Final Audit 10/11/18 09:21:17 Vein Access Technician: [id number] Modifier: [id number] 1 <*> Procedure Lumbar Microdiscectomy 1 <+> [...] Rn-Surgery 10/11/18 08:26:46 S[facility] IntraOp General Case Soft Top Installer 1 Case Information OR OR 01 SJE [...] Avitene 1Gm powder - Marcaine 0.25% 30ml [id number] vial - [id number] Combo Med List Time Administered Route of [...] Intra Op Sign Out Audit 10/11/18 09:39:50 Vein Access Technician: [id number] Modifier: [id number] <+> 1 RN Sign Out Signature Date/Time [...] S[facility] IntraOp Surgical Procedures Audit 10/11/18 09:33:24 Vein Access Technician: [id number] Modifier: [id number] 1 <*> Procedure Lumbar Microdiscectomy 1 <+> Stop 10/11/18 09:21:35 Vein Access Technician: [id number] Modifier: [id number] 1 <*> Procedure Lumbar Microdiscectomy 1 <+> Specialty 10/11/18 09:04:26 Vein Access Technician: [id number] Modifier: [id number] <+> 1 Primary Procedure <+> 1 Primary Surgeon <+> 1 Start <+> 1 Wound Class <+> 1 Anesthesia Type <+> 1 Additional Procedure Description [facility] IntraOp Temp Regulation Devices Entry 1 Temp Regulation Temperature Forced Air Warming Regulation Device device Temperature Upper body Regulation Site Temperature Device 43 Setting Temperature CARLTON HARKINS V PIPE INSULATOR Regulation Device Applied by Last Modified By: [...] SJE IntraOp Time Out Audit 10/11/18 08:33:51 Vein Access Technician: [id number] Modifier: [id number] 1 <+> Beta Thalia Administered 1 <+> [...] Rn-Surgery 10/11/18 09:39 Electronically signed by Hanane [facility] Conversion Shellfish Grower Cerner at 01/06/2023 4:42 PM CDT documented in this encounter Plan of Treatment Not on file documented as of this encounter Visit Diagnoses Not on filedocumented in this encounter
--- OUTSIDE RECORDS SUMMARY | 2025-05-06 08:41 | XMS_ITS | Encounter Summary ---
Author Organization [employer] ([place], [place], [place], [place]) Address [address] [place] [address] Care Team Providers Care Static Balancer Name Role Phone Unavailable Primary Care Provider Unavailabl e Encounter Details Date Type Department Care Team (Late st Contact Info) Description 09/27/2018 Transcribed Document [facility] [place] Family Medicine [facility] [place] [address] ProviderChula MD [address] [place] [address] Social History Tobacco Use Types [...] - Chula ProviderMD - 09/27/2018 10:30 AM PRINTED CIRCUIT BOARDS ROUTER Patient: SHIVAM BERNARD Age: 33 Years Sex: [...]
--- OUTSIDE RECORDS SUMMARY | 2025-05-06 08:41 | XMS_ITS | Encounter Summary ---
Author Organization [facility] Address [address] [place] [address] Care Team Providers Care Import/Export Clerk Name Role Phone Provider, No Known Primary Care Provider [phone] Encounter Details Date Type Department Care Team [...] on filedocumented in this encounter Care Teams Import/Export Clerk Relationship Specialty Start Date End Date Provider, [place] [address] PCP - General 01/04/24 documented as of this encounter
--- OUTSIDE RECORDS SUMMARY | 2025-05-06 08:41 | XMS_ITS | Clinical Summary ---
Author Organization [facility] Address [address] [place] [address] Care Team Providers Care Batch Mixer Name Role Phone Provider, No Known Primary Care Provider [phone] Allergies No known active allergies Medications amLODIPine [...] given her abnormal NIPT this could be business services representative of that testing. As of note [...] that CMV testing was performed with primary WEAVER HAND and she said that the IgM was positive and that the antibody was high though we do not have records of this. This could be indicative of IgM with high avidity which could be business services representative of new infection though patient states [...] Chronic hypertension affecting 025 Assessment & Plan (05/04/2025 11:47 PM EDT): Mild range BP in clinic today No KRAUS, vision changes, RUQ pain Did not take morning medication on time Unable to leave urine sample Discussed home BP checks and call parameters Follow up as needed Delivery 37 weeks is appropriate Assessment & Plan (03/25/2025 4:15 PM EDT): [...] Description 04/30/2025 3:30 PM EDT Office Visit [facility] [address] [address] Jessica Alejandra MD Chronic hypertension affecting (Primary Dx) 04/30/2025 3:18 PM EDT - 04/30/2025 11:59 PM EDT Hospital Encounter [facility] [address] [place] [address] Wilber Bender DO Discharge Disposition: Home or Self Care 04/30/2025 Travel 04/08/2025 2:45 PM EDT Office Visit [facility] [address] [address] Jessica Alejandra MD Chronic hypertension affecting (Primary Dx); Antepartum multigravida of advanced maternal age; Abnormal genetic test during ; Poor growth affecting management of mother in third trimester, single or unspecified fetus 04/08/2025 2:33 PM EDT - 04/08/2025 11:59 PM EDT Hospital Encounter [facility] [address] [place] [address] Dominick Bentley MD Abnormal genetic test during ; Chronic hypertension affecting Discharge Disposition: Home or Self Care 04/08/2025 Travel 03/25/2025 3:00 PM EDT Office Visit [facility] [address] [phone] Dominick Bentley MD Poor growth affecting management of mother in third trimester, single or unspecified fetus (Primary Dx); Chronic hypertension affecting ; Antepartum multigravida of advanced maternal age; Abnormal genetic test during 03/25/2025 3:00 PM EDT - 03/25/2025 11:59 PM EDT Hospital Encounter [facility] [address] [place] [address] Wilber Bender DO Discharge Disposition: Home or Self Care 03/25/2025 Travel 02/25/2025 2:15 PM EDT Office Visit [facility] [address] [phone] Jessica Alejandra MD Antepartum multigravida of advanced maternal age (Primary Dx); Chronic hypertension affecting 02/25/2025 2:00 PM EDT - 02/25/2025 11:59 PM EDT Hospital Encounter [facility] [address] [place] [address] Wilber Bender DO Discharge Disposition: Home or [...] Procedure Name Priority Date/Time Associated Diagnosis Comments [facility] Routine 04/30/2025 3:41 PM EDT Chronic hypertension affecting Antepartum multigravida of advanced maternal age Poor growth affecting management of mother in third trimester, single or unspecified fetus [facility] Routine 04/08/2025 3:27 PM EDT Abnormal genetic test during Chronic hypertension affecting [facility] Routine 03/25/2025 3:56 PM EDT Abnormal genetic test during Chronic hypertension affecting [facility] Routine 02/25/2025 2:41 PM EDT Abnormal genetic test during Chronic hypertension affecting HEMOGLOBIN A1C Routine 01/08/2024 8:54 AM EDT Blighted ovum from Last 3 Months or Most Recently Relevant to Health Maintenance Results * [facility] (04/30/2025 3:41 PM EDT) Only the most recent of4 resultswithin the time period is included. Anatomical Region Laterality Modality Ultrasound 04/30/2025 3:28 PM EDT Narrative 04/30/2025 3:55 PM EDT PAT NAME: SHIVAM BERNARD MED REC#: [id number] DA: [id number] PAT GEND: F PAT TYPE: O EXAM ALIREZA: [id number] REF PHYS WILBER BENDER Comparison Studies The [...] EFW (oz) 3 oz EFW by: Hadlock (SAO-[id number]-FL) Extended Cav. septi pel. tr 5.3 mm Bench Molder 6.3 mm Head / Face / Neck [...] 4-chamber view: Appears normal Heart / Thorax 3-yyxpuz-puzuwlf view: Appears normal Cord insertion: Normal Stomach: [...] Follow-up as clinically indicated. Coding ======= Description: 30085-23 Follow Up Ultrasound Description: 18279-75 BPP without NST Description: 07184-52 Doppler Umbilical Artery Monogram Machine Operator: RT Minerva Salmon , [facility] Physician: Jessica Alejandra MD, FACOG Electronically signed by: Jessica Alejandra MD, FACOG at: 15:55 Procedure Note Jessica Alejandra MD - 04/30/2025 PAT NAME: SHIVAM BERNARD MED REC#: [id number] DA: [id number] PAT GEND: F PAT TYPE: O EXAM ALIREZA: [id number] REF PHYS WILBER BENDER Comparison Studies The findings of this study are compared to the prior ultrasound studydated 04/08/25 Patient Status Outpatient Indication ======== AMA. CHTN. Follow up IUGR. Abnormal NIPT (high risk triploidy, T13, T18.)Hx preeclampsia & PTD (32 & 35 wk). Morbid obesity BMI 41. Maternal Assessment Vehhee775 cm Height (ft)5 ft Height (in)3 in Kcsgdw960 kg Weight (lb)232 lb BMI41.11 kg/m Method ======= Transabdominal ultrasound examination. View: Suboptimal view: limited bylate gestational age ========= Black . Number of fetuses: 1 Dating ====== Method of dating:based on stated ARIA GA by prior [id number] w + 0 d ARIA by prior assessment:05/28/2025 Ultrasound examination on:04/30/2025 GA by U/S based upon:AC, BPD, Femur, HC GA by U/S34 w + 1 d ARIA by U/S:06/10/2025 Previous dating:based on stated ARIA, selected on 04/08/2025 Agreed ARIA of previous datin05/28/2025 Assigned:based on stated ARIA, selected on 04/30/2025 Assigned GA36 w + 0 d Assigned ARIA:05/28/2025 ochczy218 d Biometry Standard BPD84.9 mm 34w 1d 13% Hadlock PRJ342.1 mm 34w 4d 18% Bella HC303.8 mm 33w 5d <1% Hadlock AC301.8 mm 34w 1d 12% Hadlock Femur66.7 mm 34w 2d 10% Hadlock Lzydawg44.3 mm 34w 3d 29% Bella HC / AC1.01 EFW2,363 g 34w 0d 11% Hadlock EFW (lb)5 lb EFW (oz)3 oz EFW by:Hadlock ([id number]-WH-[id number]-FL) Extended Cav. septi pel. tr5.3 mm Vp6.3 mm Head / Face / Neck Cephalic index0.81 44% Nicolaides Extremities / Bony Struc FL / BPD0.79 FL / HC0.22 FL / AC0.22 Other Structures SWS468 bpm General Evaluation Cardiac activity present. FHR [...] Lips:Normal 4-chamber view:Appears normal Heart / Thorax 4-zacwdc-tghabrf view:Appears normal Cord insertion:Normal Stomach:Appears normal Kidneys:Appears [...] Recommendation Follow-up as clinically indicated. Coding ======= Description:57136-51 Follow Up Ultrasound Description:44419-61 BPP without NST Description:66480-01 Doppler Umbilical Artery Monogram Machine Operator: RT Minerva Salmon , [facility] Physician: Jessica Alejandra MD, FACOG Electronically signed [...] - 01/09/2024 8:16 AM EDT Performed at: [address] [facility] [place] [id number] Telecom Coordinator: Kevin Staley MD, Phone: [phone] Patient Fasting: N us Caleb Alves MD LAB BLOOD ORDERABLES Fin al Result [facility] (AMBULATORY) [address] [place] [address], [facility] [address] [place] [address], from Last 3 Months or Most Recently Relevant to Health Maintenance [place] [address] [place] [address] Care Teams Batch Mixer Relationship Specialty Start Date End Date Provider, [place] [address] PCP - General 01/04/24
--- OUTSIDE RECORDS SUMMARY | 2025-05-06 08:41 | XMS_ITS | Encounter Summary ---
Author Organization [employer] ([place], [place], [place], [place]) Address [address] [place] [address] Care Team Providers Care Manager Neonatal Name Role Phone Unavailable Primary Care Provider Unavailabl e Encounter Details Date Type Department Care Team (Late st Contact Info) Description 10/11/2018 Transcribed Document [facility] [place] [facility] [address] ProviderChula MD [address] [place] [...] - Chula ProviderMD - 10/11/2018 8:13 AM ANIMAL PARK CODE ENFORCEMENT OFFICER E Main OR PACU Summary Primary Physician: JUANY PRICE MD Finalized Date/Time: 10/11/18 11:43:57 Pt. Name: SHIVAM BERNARD D.O.B./Sex: 1985 Female Med Rec #: [id number] Physician: JUANY PRICE MD Financial #: [id number] Pt. Type: O Room/Bed: [facility] Admit/Disch: 10/11/18 04:54:00 - Institution: [facility] Main OR PACU Case Times [...] RN 10/11/18 11:43 Electronically signed by Hanane [facility] Conversion Stick Puller Cerner at 01/06/2023 4:48 PM CDT documented in this encounter Plan of Treatment Not on file documented as of this encounter Visit Diagnoses Not on filedocumented in this encounter
--- OUTSIDE RECORDS SUMMARY | 2025-05-06 08:41 | XMS_ITS | Encounter Summary ---
Author Organization [employer] ([place], [place], [place], [place]) Address [address] [place] [address] Care Team Providers Care Broker Name Role Phone Unavailable Primary Care Provider Unavailabl e Encounter Details Date Type Department Care Team (Late st Contact Info) Description 10/11/2018 Transcribed Document [facility] Family Medicine [facility] [place] [address] ProviderChula MD [address] [place] [address] Social History Tobacco Use Types [...] - Chula ProviderMD - 10/11/2018 9:28 AM NUT ROASTER DATE OF PROCEDURE: 10/11/2018 ORTHOPEDIC OPERATIVE NOTE PREOPERATIVE DIAGNOSIS(ES): Right L5-S1 herniated nucleus pulposus. POSTOPERATIVE DIAGNOSIS(ES): Right L5-S1 herniated nucleus pulposus. PROCEDURE: Right L5-S1 microdiscectomy, CPT code-93491. SURGEON: Chase Recinos MD EVAPORATOR REPAIRER: Benjy. COMPLICATIONS: None. SPECIMENS: None. IMPLANTS: None. ESTIMATED BLOOD LOSS: 25 mL. DESCRIPTION OF PROCEDURE: Patient was identified in the holding area at [facility], transferred to the operative room under the [...]
--- OUTSIDE RECORDS SUMMARY | 2025-05-06 08:41 | XMS_ITS | Encounter Summary ---
Author Organization [employer] ([place], [place], [place], [place]) Address [address] [place] [address] Care Team Providers Care Refrigeration Specialist Name Role Phone Unavailable Primary Care Provider Unavailabl e Encounter Details Date Type Department Care Team (Late st Contact Info) Description 10/11/2018 Transcribed Document [facility] [place] [facility] [place] [address] ProviderChula MD [address] [place] [address] Social History Tobacco Use Types [...] - Historical ProviderMD - 10/11/2018 8:12 AM ABRASIVE MIXER Peripheral Nerve Block Entered On: 10/11/2018 8:13 [...] - 10/11/2018 8:12 EST Electronically signed by [facility], [facility] Conversion Energy And Sustainability Manager Cerner at 01/06/2023 4:48 PM CDT documented in this encounter Plan of Treatment Not on file documented as of this encounter Visit Diagnoses Not on filedocumented in this encounter
--- OUTSIDE RECORDS SUMMARY | 2025-05-06 08:41 | XMS_ITS | Encounter Summary ---
Author Organization [facility] Address [address] [place] [address] Care Team Providers Care Ripening Room Hand Name Role Phone Provider, No Known Primary Care Provider [phone] Encounter Details Date Type Department Care Team [...] on filedocumented in this encounter Care Teams Ripening Room Hand Relationship Specialty Start Date End Date Provider, [place] [address] PCP - General 01/04/24 documented as of this encounter
--- OUTSIDE RECORDS SUMMARY | 2025-05-06 08:41 | XMS_ITS | Encounter Summary ---
Author Organization [employer] ([place], [place], [place], [place]) Address [address] [place] [address] Care Team Providers Care Aquatics Manager Name Role Phone Unavailable Primary Care Provider Unavailabl e Encounter Details Date Type Department Care Team (Late st Contact Info) Description 10/11/2018 Transcribed Document [facility] Family Medicine [place] [address] ProviderChula MD [address] [place] [address] Social History Tobacco Use Types [...] - Chula ProviderMD - 10/11/2018 8:13 AM HOME COORDINATOR POL[place] Main OR PreOp Summary Primary Physician: JUANY PRICE MD Finalized Date/Time: 10/11/18 10:17:21 Pt. Name: SHIVAM BERNARDO.B./Sex: 1985 Female Med Rec #: [id number] Physician: JUANY PRICE MD Financial #: [id number] Pt. Type: O Room/Bed: [facility] Admit/Disch: 10/11/18 04:54:00 - Institution: [facility] PreOp Case Times Entry 1 In Preop 10/11/18 05:30:00 Ready for Holding n/a Room Patient Ready for 10/11/18 06:47:00 Surgery Patient Out of Preop 10/11/18 07:35:00 Patient Out of n/a Holding Room Last Modified By: CYNDI LEONARD 10/11/18 10:17:20 [facility] PreOp Case Times Audit 10/11/18 10:17:20 Vocational Technical Education Teacher: MANDOINMARCK Modifier: [email or web address] <+> 1 Patient Out of Preop 10/11/18 06:47:33 Vocational Technical Education Teacher: CRAINMA Modifier: CRAINMA <+> 1 Patient Ready for Surgery Finalized By: CYNDI LEONARD Document Signatures Signed By: CYNDI LEONARD 10/11/18 10:17 documented in this encounter Plan of Treatment Not on file documented as of this encounter Visit Diagnoses Not on filedocumented in this encounter
--- OUTSIDE RECORDS SUMMARY | 2025-05-06 08:41 | XMS_ITS | Encounter Summary ---
Author Organization [employer] ([place], [place], [place], [place]) Address [address] [place] [address] Care Team Providers Care Derrick Boat Runner Name Role Phone Unavailable Primary Care Provider Unavailabl e Encounter Details Date Type Department Care Team (Late st Contact Info) Description 10/11/2018 Transcribed Document [facility] [place] [facility] [place] [address] ProviderChula MD [address] [place], [place] [id number] Social History Tobacco Use Types Packs/Day Years [...] - Historical ProviderMD - 10/11/2018 7:35 AM NEGOTIATIONS DIRECTOR Event Note Entered On: 10/11/2018 7:37 EST [...]
--- OUTSIDE RECORDS SUMMARY | 2025-05-06 08:41 | XMS_ITS | Encounter Summary ---
Author Organization Info ([place], [place], [place], [place]) Address [address] [place] [address] Care Team Providers Care Grinding Room Supervisor Name Role Phone Unavailable Primary Care Provider Unavailabl e Encounter Details Date Type Department Care Team (Late st Contact Info) Description 10/11/2018 Transcribed Document [facility] [place] [facility] [place] [address] ProviderChula MD [address] [place], [place] [...] - Historical ProviderMD - 10/11/2018 7:31 AM CORD TIRE BUILDER Event Note Entered On: 10/11/2018 7:33 EST [...]
--- OUTSIDE RECORDS SUMMARY | 2025-05-06 08:42 | XMS_ITS | Referral Summary ---
Author Organization [employer] ([place], [place], [place]) Address [address] [place] [address] Care Team Providers Care Washer Cutter Name Role Phone Unavailable Primary Care Provider [...]
--- OUTSIDE RECORDS SUMMARY | 2025-05-06 08:42 | XMS_ITS | Clinical Summary ---
Author Organization [facility] Address [address] [place] [address] Care Team Providers Care Drapery Maker Name Role Phone Rosemary Fuller Primary Care [...] Tdap) 09/12/2023 09/12/2013 Colonoscopy 12/29/2023 12/29/2021, 11/13/2019 [id number] Vaccine ( - season) 2024 UKY-Depression Screening [...] RN Endo Nurse Roberto Carlos Davis CRNA VAUDEVILLE ACTOR, No role selected Kell Carrera RN Endo Nurse Mady Alvarez Endo Nurse James Morales MD Anesthesiologist MD Daniel Dinero MD Proceduralist Electronic Security Specialist Unknown Endo Nurse 1 Endo Nurse [...] of bowel preparation was evaluated using the [place] Bowel Preparation Scale with scores of: right [...] were documented in this log. Findings Healthy [id number]-[id number] ileocolonic anastomosis with no bleeding The rectum [...] <6.0% Children and Adolescents <7.5% . Source: [employer]. Standards of medical care in [...] Insurance [employer] MEDICAID Care Teams Drapery Maker Relationship Specialty Start Date End Date Rosemary Fuller PA [address] [place] [address] PCP - General 01/29/21
--- OUTSIDE RECORDS SUMMARY | 2025-05-06 08:42 | XMS_ITS | Clinical Summary ---
Author Organization [employer] ([place], [place], [place], [place]) Address [address] [place] [address] Care Team Providers Care Hide Curer Name Role Phone Unavailable Primary Care [...]
--- OUTSIDE RECORDS SUMMARY | 2025-05-06 08:42 | XMS_ITS | Encounter Summary ---
Author Organization [facility] Address [address] [place] [address] Care Team Providers Care Carton And Can Supply Supervisor Name Role Phone Provider, No Known Primary Care Provider [phone] Encounter Details Date Type Department Care Team [...] on filedocumented in this encounter Care Teams Carton And Can Supply Supervisor Relationship Specialty Start Date End Date Provider, [place] [address] PCP - General 01/04/24 documented as of this encounter
== END 2025-05-02 23:59 | disposition home or self-care (01) ==
LOC: LAB.DROPOF 05-06 08:23
PROVIDERS: PCP Nurse Practitioner; Visit Provider Obstetrics & Gynecology
DX: O10.919 Unspecified pre-existing hypertension complicating pregnancy, unspecified trimester (principal); O09.529 Supervision of elderly multigravida, unspecified trimester; O99.210 Obesity complicating pregnancy, unspecified trimester; E66.9 Obesity, unspecified; Z3A.00 Weeks of gestation of pregnancy not specified
CPT/HCPCS: 86403

== ENCOUNTER 2025-05-02 12:27 | Outpatient (CLI) | payer OTHER, SELFPAY ==
--- OUTSIDE RECORDS SUMMARY | 2025-03-25 15:00 | XMS_ITS | Encounter Summary ---
[facility] Address [address] [place] [address] Care Team Providers Care Academic Advisor Name Role Phone Provider, No Known Primary Care Provider [phone] Reason for Visit * Reason Comments ama, CHTN, ABN NIPT Encounter Details Date Type Department Care Team (Late st Contact Info) Description 03/25/2025 3:00 PM EDT Office Visit [facility] MATERNAL MEDICINE [address] [facility] [address] [place] [address] Dominick Bentley MD [address] [facility] [address] [place] [address] Poor growth affecting management of mother in [...] given her abnormal NIPT this could be inside sales account representative of that testing. As of note [...] that CMV testing was performed with primary TEACHER OF FAMILY [employer] CONSUMER SCIENCE and she said that the IgM was positive and that the antibody was high though we do not have records of this. This could be indicative of IgM with high avidity which could be inside sales account representative of new infection though patient states [...] given her abnormal NIPT this could be inside sales account representative of that testing. As of note [...] that CMV testing was performed with primary [employer] and she said that the IgM was positive and that the antibody was high though we do not have records of this. This could be indicative of IgM with high avidity which could be inside sales account representative of new infection though patient states [...] or sooner if clinically indicated. Orders: - [facility]; Standing 2. Chronic hypertension affecting Assessment & Plan: Patient presents for follow-up growth ultrasound secondary to AMA, chronic hypertension, abnormal NIPT. Blood sugar today 127/80. Orders: - [facility]; Standing 3. Antepartum multigravida of advanced maternal age - [facility]; Standing 4. Abnormal genetic test during Follow [...] CVS. Dominick Bentley MD, FACOG Maternal Medicine, [facility] documented in this encounter Plan of Treatment Not on file documented as of this encounter Visit Diagnoses Diagnosis Poor growth affecting management of mother in third trimester, single or unspecified fetus- Primary Chronic hypertension affecting Antepartum multigravida of advanced maternal age Abnormal genetic test during documented in this encounter Care Teams Academic Advisor Relationship Specialty Start Date End Date Provider, [place] [address] PCP - General 01/04/24 documented as of this encounter
--- OUTSIDE RECORDS SUMMARY | 2025-03-25 15:00 | XMS_ITS | Encounter Summary ---
Author Organization [facility] Address [address] [place] [address] Care Team Providers Care Production Engine Repairer Name Role Phone Provider, No Known Primary Care Provider [phone] Reason for Visit * Diagnostic Imaging (Routine) - Closed Specialty Diagnoses / Procedures Referred By Carolyne diaz Referred To Contact Radiology Diagnoses Abnormal genetic test during Chronic hypertension affecting Procedures [facility] Bentley, Dominick Silva MD [address] [place] [address] Phone: tel: fax: Referral ID Status Reason Start Date Expiration Date Visits Re quested Visits Authorized [id number] Closed 12/30/2024 03/31/2026 4 4 Encounter Details Date Type Department Care Team (Latest Contact Info) Description 03/25/2025 3:00 PM EDT - 03/25/2025 11:59 PM EDT Hospital Encounter [facility] PER DIAG CTR [address] [place] [address] Wilber Bender, [address] [facility] [address] [place] [id number] Discharge Disposition: Home or Self Care Social [...] Procedure Name Priority Date/Time Associated Diagnosis Comments [facility] Routine 03/25/2025 3:56 PM EDT Abnormal genetic test during Chronic hypertension affecting documented in this encounter Results * [facility] (03/25/2025 3:56 PM EDT) Anatomical Region Laterality Modality Ultrasound 03/25/2025 3:25 PM EDT Narrative 03/25/2025 4:18 PM EDT PAT NAME: SHIVAM BERNARD MED REC#: [id number] DA: [id number] PAT GEND: F PAT TYPE: O EXAM ALIREZA: [id number] REF PHYS LIVIA WILBER Comparison Studies The [...] Hadlock OFD 93.7 mm 30w 2d 33% Blela HC 267.1 mm 29w 1d <1% Hadlock Cerebellum tr 38.6 mm 31w 3d 48% Hill AC 252.3 mm 29w 3d 11% Hadlock Femur 51.2 mm 27w 3d <1% Hadlock Humerus 44.3 mm 26w 2d <1% Bella HC / AC 1.06 EFW 1,278 g 28w 3d 3% Hadlock EFW (lb) 2 lb EFW (oz) 13 oz EFW by: Hadlock (ENM-YC-PX-FL) Extended Tibia 45.8 mm 27w 6d 2% Bella Fibula 45.4 mm 28w 1d 15% Bella Foot 57.5 mm 9% Chitty Radius 37.7 mm 26w 2d 14% Bella Ulna 41.3 mm 26w 6d <1% Bella Cav. septi pel. tr 5.5 mm Dray Truck Driver 3.8 mm CM 4.7 mm 3% Nicolaides [...] (one being BPP/BHAVYA/UA dopplers). Coding ======= Description: 48383-39 Follow Up Ultrasound Description: 58456-50 BPP without NST Description: 79586-91 Doppler Umbilical Artery Fourth Grade Teacher: Yoly Choudhary RDMS Physician: Dominick Bentley MD, FACOG Electronically signed by: Dominick Bentley MD, FACOG at: 16:18 Procedure Note Dominick Bentley MD - 03/25/2025 PAT NAME: SHIVAM BERNARD MED REC#: [id number] DA: [id number] PAT GEND: F PAT TYPE: O EXAM ALIREZA: [id number] REF PHYS WILBER BENDER Comparison Studies The findings of this study are compared to the prior ultrasound studydated 02/25/25. Patient Status Outpatient Indication ======== Abnormal NIPT (high risk triploidy, T13, T18.) AMA. CHTN. Hx preeclampsia& PTD (32 & 35 wk). Obesity BMI 39. Maternal Assessment Elojgg839 cm Height (ft)5 ft Height (in)3 in Dvbzpl811 kg Weight (lb)227 lb BMI40.22 kg/m Method ======= Transabdominal ultrasound examination ========= Black . Number of fetuses: 1 Dating ====== GA by prior [id number] w + 6 d ARIA by prior [...] GA30 w + 6 d Assigned ARIA:05/28/2025 mmmagy996 d Biometry Standard BPD74.1 mm 29w 5d 11% Hadlock OFD93.7 mm 30w 2d 33% Bella HC267.1 mm 29w 1d <1% Hadlock Cerebellum tr38.6 mm 31w 3d 48% Hill AC252.3 mm 29w 3d 11% Hadlock Femur51.2 mm 27w 3d <1% Hadlock Okezakz55.3 mm 26w 2d <1% Bella HC / AC1.06 EFW1,278 g 28w 3d 3% Hadlock EFW (lb)2 lb EFW (oz)13 oz EFW by:Hadlock (ZXH-SW-ET-FL) Extended Tibia45.8 mm 27w 6d 2% Bella Wdobeq20.4 mm 28w 1d 15% Bella Foot57.5 mm 9% Chitty Ldlbtz05.7 mm 26w 2d 14% Bella Ulna41.3 mm 26w 6d <1% Bella Cav. septi pel. tr5.5 mm Vp3.8 mm CM4.7 mm 3% Nicolaides Head / Face / Neck Cephalic index0.79 46% Nicolaides Extremities / Bony Struc FL / BPD0.69 FL / HC0.19 FL / AC0.20 Other Structures INJ513 bpm General Evaluation Cardiac activity present. FHR [...] office (one being BPP/BHAVYA/UA dopplers). Coding ======= Description:03174-86 Follow Up Ultrasound Description:37272-50 BPP without NST Description:98467-13 Doppler Umbilical Artery Fourth Grade Teacher: Yoly Choudhary RDMS Physician: Dominick Bentley MD, FACOG Electronically signed by: Dominick Bentley MD, FACOG at: 16:18 us Dominick Bentley MD IMG US ORDERABLES Final Result documented in this encounter Visit Diagnoses Not on filedocumented in this encounter Care Teams Production Engine Repairer Relationship Specialty Start Date End Date Provider, No Known [place] [id number] PCP - General 01/04/24 documented as of this encounter
--- OUTSIDE RECORDS SUMMARY | 2025-04-08 14:33 | XMS_ITS | Encounter Summary ---
Author Organization [facility] Address [address] [place] [address] Care Team Providers Care Trimmer Sawyer Name Role Phone Provider, No Known Primary Care Provider [phone] Reason for Referral * Diagnostic Imaging (Routine) - Closed Specialty Diagnoses / Procedures Referred By Carolyne diaz Referred To Contact Radiology Diagnoses Abnormal genetic test during Chronic hypertension affecting Procedures [facility] Dominick Bentley MD [address] [place] [address] Phone: tel: fax: Referral ID Status Reason Start Date Expiration Date Visits Re quested Visits Authorized [id number] Closed 12/30/2024 03/31/2026 4 4 Reason for Visit * Diagnostic Imaging (Routine) - Closed Specialty Diagnoses / Procedures Referred By Carolyne diaz Referred To Contact Radiology Diagnoses Abnormal genetic test during Chronic hypertension affecting Procedures [facility] Diagnostic [place] Dominick Bentley MD [address] [facility] [address] [place] [address] Phone: tel: fax: Referral ID Status Reason Start Date Expiration Date Visits Re quested Visits Authorized [id number] Closed 12/30/2024 03/31/2026 4 4 Encounter Details Date Type Department Care Team (Late st Contact Info) Description 04/08/2025 2:33 PM EDT - 04/08/2025 11:59 PM EDT Hospital En[facility] [address] [place] [address] Dominick Bentley MD [address] [place] [address] Abnormal genetic test during ; Chronic hypertension [...] Procedure Name Priority Date/Time Associated Diagnosis Comments [facility] Routine 04/08/2025 3:27 PM EDT Abnormal genetic test during Chronic hypertension affecting documented in this encounter Results * [facility] (04/08/2025 3:27 PM EDT) Anatomical Region Laterality Modality Ultrasound 04/08/2025 3:10 PM EDT Narrative 04/09/2025 12:30 PM EDT PAT NAME: SHIVAM BERNARD MED REC#: [id number] DA: [id number] PAT GEND: F PAT TYPE: O EXAM ALIREZA: [id number] REF PHYS WILBER BHAKTA Comparison Studies The [...] EFW (oz) 14 oz EFW by: Hadlock (NWN-SP-AU-FL) Extended Cav. septi pel. tr 4.9 mm Brush Holder Inspector 5.2 mm CM 8.0 mm 70% Nicolaides [...] in 3 weeks scheduled Coding ======= Description: 16674-22 Follow Up Ultrasound Description: 25591-93 BPP without NST Description: 74106-90 Doppler Umbilical Artery Scrub Technician: Josephine Gonzales RDMS Physician: Jessica Alejandra MD, FACOG Electronically signed by: Jessica Alejandra MD, FACOG at: 12:30 Procedure Note Jessica Alejandra MD - 04/09/2025 PAT NAME: SHIVAM BERNARD MED REC#: [id number] DA: [id number] PAT GEND: F PAT TYPE: O EXAM ALIREZA: [id number] REF PHYS WILBER BHAKTA Comparison Studies The findings of this study are compared to the prior ultrasound studydated 03/25/25 Patient Status Outpatient Indication ======== AMA. CHTN. Follow up IUGR. Abnormal NIPT (high risk triploidy, T13, T18.)Hx preeclampsia & PTD (32 & 35 wk). Morbid obesity BMI 40. Maternal Assessment Qzhcdq515 cm Height (ft)5 ft Height (in)3 in Dlmnuo581 kg Weight (lb)227 lb BMI40.22 kg/m Method ======= Transabdominal ultrasound examination. View: Adequate view ========= Black . Number of fetuses: 1 Dating ====== Method of dating:based on stated ARIA GA by prior youkrkbkcj71 w + 6 d ARIA by prior assessment:05/28/2025 Ultrasound examination on:04/08/2025 GA by U/S based upon:AC, BPD, Femur, HC GA by U/S31 w + 4 d ARIA by U/S:06/06/2025 Previous dating:based on stated ARIA, selected on 02/25/2025 Agreed ARIA of previous datin05/28/2025 Assigned:based on stated ARIA, selected on 04/08/2025 Assigned GA32 w + 6 d Assigned ARIA:05/28/2025 ikrblz161 d Biometry Standard BPD80.2 mm 32w 1d 24% Hadlock OFD98.4 mm 31w 6d 23% Bella HC287.0 mm 31w 4d 2% Hadlock Cerebellum tr41.5 mm 32w 6d 31% Hill AC273.7 mm 31w 3d 14% Hadlock Femur59.6 mm 31w 0d 5% Hadlock Qywlsxt01.1 mm 30w 6d 13% Bella HC / AC1.05 EFW1,758 g 31w 0d 9% Hadlock EFW (lb)3 lb EFW (oz)14 oz EFW by:Hadlock (FWK-TY-ZU-FL) Extended Cav. septi pel. tr4.9 mm Vp5.2 mm CM8.0 mm 70% Nicolaides Head / Face / Neck Cephalic index0.82 66% Nicolaides Extremities / Bony Struc FL / BPD0.74 FL / HC0.21 FL / AC0.22 Other Structures WZN486 bpm General Evaluation Cardiac activity present. FHR [...] growth in 3 weeks scheduled Coding ======= Description:76128-89 Follow Up Ultrasound Description:35705-08 BPP without NST Description:38807-03 Doppler Umbilical Artery Scrub Technician: Josephine Gonzales RDMS Physician: Jessica Alejandra MD, FACOG Electronically signed by: Jessica Alejandra MD, FACOG at: 2312:30 Dominick Bentley MD G US ORDERABLES Final Result documented in this encounter Visit Diagnoses Diagnosis Abnormal genetic test during Chronic hypertension affecting documented in this encounter Care Teams Trimmer Sawyer Relationship Specialty Start Date End Date Provider, [place] [address] PCP - General 01/04/24 documented as of this encounter
--- OUTSIDE RECORDS SUMMARY | 2025-04-08 14:45 | XMS_ITS | Encounter Summary ---
[facility] [address] [place] [address] Care Team Providers Care Dispenser Operator Name Role Phone Provider, No Known Primary Care Provider [phone] Reason for Visit * Reason Comments CHTN, AMA, abn NIPT, MO, hx PreE, IUGR Encounter Details Date Type Department Care Team (Late st Contact Info) Description 04/08/2025 2:45 PM EDT Office Visit [facility] MATERNAL MEDICINE [address] [address] Jessica Alejandra MD [address] [phone] Chronic hypertension affecting (Primary Dx); Antepartum multigravida [...] fetus documented in this encounter Care Teams Dispenser Operator Relationship Specialty Start Date End Date Provider, [place] [address] PCP - General 01/04/24 documented as of this encounter
--- OUTSIDE RECORDS SUMMARY | 2025-04-30 15:18 | XMS_ITS | Encounter Summary ---
Author Organization [facility] Address [address] [place] [address] Care Team Providers Care Contracting Analyst Name Role Phone Provider, No Known Primary Care Provider [phone] Reason for Visit * Diagnostic Imaging (Routine) - Canceled Specialty Diagnoses / Procedures Referred By Contac t Referred To Contact Radiology Diagnoses Chronic hypertension affecting Antepartum multigravida of advanced maternal age Poor growth affecting management of mother in third trimester, single or unspecified fetus Procedures [facility] Bentley, Dominick Silva MD [address] [place] [address] Phone: tel: fax: [facility] US PER DIAG CTR [address] [place] [address] Phone: tel: Referral ID Status Reason Start Date Expiration Date V isits Requested Visits Authorized [id number] Canceled 03/25/2025 06/24/2026 3 3 Encounter Details Date Type Department Care Team (Latest Contact Info) Description 04/30/2025 3:18 PM EDT - 04/30/2025 11:59 PM EDT Hospital Encounter [facility] US PER DIAG CTR [address] [place] [address] Discharge Disposition: Home or Self Care Social [...] Name Priority Date/Time Associated Diagnosis Comments [facility] Routine 04/30/2025 3:41 PM EDT Chronic hypertension affecting Antepartum multigravida of advanced maternal age Poor growth affecting management of mother in third trimester, single or unspecified fetus documented in this encounter Results * [facility] (04/30/2025 3:41 PM EDT) Anatomical Region Laterality Modality Ultrasound 04/30/2025 3:28 PM EDT Narrative 04/30/2025 3:55 PM EDT PAT NAME: SHIVAM BERNARD MED REC#: [id number] DA: [id number] PAT GEND: F PAT TYPE: O EXAM ALIREZA: [id number] REF PHYS WILBER BHAKTA Comparison Studies The [...] EFW (oz) 3 oz EFW by: Hadlock (KRU-OV-IP-FL) Extended Cav. septi pel. tr 5.3 mm Upholstery Auto Trimmer 6.3 mm Head / Face / Neck [...] 4-chamber view: Appears normal Heart / Thorax 6-uphpul-cihgujc view: Appears normal Cord insertion: Normal Stomach: [...] Follow-up as clinically indicated. Coding ======= Description: 66813-48 Follow Up Ultrasound Description: 79512-62 BPP without NST Description: 65353-38 Doppler Umbilical Artery Army Officer: RT Minerva Salmon , [facility] [place] Physician: Jessica Alejandra MD, FACOG Electronically signed by: Jessica Alejandra MD, FACOG at: 15:55 Procedure Note Jessica Alejandra MD - 04/30/2025 PAT NAME: SHIVAM BERNARD MED REC#: [id number] DA: 1985 PAT GEND: F PAT TYPE: O EXAM ALIREZA: [id number] REF PHYS WILBER BHAKTA Comparison Studies The findings of this study are compared to the prior ultrasound studydated 04/08/25 Patient Status Outpatient Indication ======== AMA. CHTN. Follow up IUGR. Abnormal NIPT (high risk triploidy, T13, T18.)Hx preeclampsia & PTD (32 & 35 wk). Morbid obesity BMI 41. Maternal Assessment Inpxce372 cm Height (ft)5 ft Height (in)3 in Ztoovm786 kg Weight (lb)232 lb BMI41.11 kg/m Method ======= Transabdominal ultrasound examination. View: Suboptimal view: limited bylate gestational age ========= Black . Number of fetuses: 1 Dating ====== Method of dating:based on stated ARIA GA by prior hdcnhyxmrv61 w + 0 d ARIA by prior assessment:05/28/2025 Ultrasound examination on:04/30/2025 GA by U/S based upon:AC, BPD, Femur, HC GA by U/S34 w + 1 d ARIA by U/S:06/10/2025 Previous dating:based on stated ARIA, selected on 04/08/2025 Agreed ARIA of previous datin05/28/2025 Assigned:based on stated ARIA, selected on 04/30/2025 Assigned GA36 w + 0 d Assigned ARIA:05/28/2025 aumzfe308 d Biometry Standard BPD84.9 mm 34w 1d 13% Hadlock EQT964.1 mm 34w 4d 18% Bella HC303.8 mm 33w 5d <1% Hadlock AC301.8 mm 34w 1d 12% Hadlock Femur66.7 mm 34w 2d 10% Hadlock Esrmdib31.3 mm 34w 3d 29% Bella HC / AC1.01 EFW2,363 g 34w 0d 11% Hadlock EFW (lb)5 lb EFW (oz)3 oz EFW by:Hadlock (WZY-WO-EW-FL) Extended Cav. septi pel. tr5.3 mm Vp6.3 mm Head / Face / Neck Cephalic index0.81 44% Nicolaides Extremities / Bony Struc FL / BPD0.79 FL / HC0.22 FL / AC0.22 Other Structures SAD785 bpm General Evaluation Cardiac activity present. FHR [...] Lips:Normal 4-chamber view:Appears normal Heart / Thorax 8-xvcucl-itjedhl view:Appears normal Cord insertion:Normal Stomach:Appears normal Kidneys:Appears [...] Recommendation Follow-up as clinically indicated. Coding ======= Description:84074-58 Follow Up Ultrasound Description:68718-82 BPP without NST Description:85230-86 Doppler Umbilical Artery Army Officer: RT Minerva Salmon , [facility] [place] Physician: Jessica Alejandra MD, FACOG Electronically signed by: Jessica Alejandra MD, FACOG at: 1315:55 us Dominick Bentley MD IMG US ORDERABLES Final Result documented in this encounter Visit Diagnoses Not on filedocumented in this encounter Care Teams Contracting Analyst Relationship Specialty Start Date End Date Provider, [place] [address] PCP - General 01/04/24 documented as of this encounter
--- OUTSIDE RECORDS SUMMARY | 2025-04-30 15:30 | XMS_ITS | Encounter Summary ---
[facility] Address [address] [place] [address] Care Team Providers Care Group Therapist Name Role Phone Provider, No Known Primary Care Provider [phone] Reason for Visit * Reason Comments AMA; MO; CHTN; abnormal NIPT; hx preecla mpsia; IUGR Encounter Details Date Type Department Care Team (Late st Contact Info) Description 04/30/2025 3:30 PM EDT Office Visit [facility] MATERNAL MEDICINE [address] [address] Jessica Alejandra MD [address] [place] [phone] Chronic hypertension affecting (Primary Dx) Social History [...] 2:09 PM EDT documented in this encounter Plan of Treatment Not on file documented as of this encounter Visit Diagnoses Diagnosis Chronic hypertension affecting - Primary documented in this encounter Care Teams Group Therapist Relationship Specialty Start Date End Date Provider, No Known [place] [id number] PCP - General 01/04/24 documented as of this encounter
--- OUTSIDE RECORDS SUMMARY | 2025-05-02 12:31 | XMS_ITS | Encounter Summary ---
Author Organization [employer] ([place], [place], [place], [place]) Address [address] [place] [address] Care Team Providers Care Sow Farm Barn Technician Name Role Phone Unavailable Primary Care Provider Unavailabl e Encounter Details Date Type Department Care Team (Late st Contact Info) Description 10/11/2018 Transcribed Document [facility] [place] [facility] [place] [address] ProviderChula MD [address] [place] [address] Social History Tobacco Use Types [...] - Chula ProviderMD - 10/11/2018 9:28 AM MANUFACTURING ASSISTANT DATE OF PROCEDURE: 10/11/2018 ORTHOPEDIC OPERATIVE NOTE PREOPERATIVE DIAGNOSIS(ES): Right L5-S1 herniated nucleus pulposus. POSTOPERATIVE DIAGNOSIS(ES): Right L5-S1 herniated nucleus pulposus. PROCEDURE: Right L5-S1 microdiscectomy, CPT code-03122. SURGEON: Chase Recinos MD FUNERAL DIRECTOR'S ASSISTANT: Benjy. COMPLICATIONS: None. SPECIMENS: None. IMPLANTS: None. [...]
--- OUTSIDE RECORDS SUMMARY | 2025-05-02 12:31 | XMS_ITS | Encounter Summary ---
Author Organization [employer] ([place], [place], [place], [place]) Address [address] [place] [address] Care Team Providers Care Foam Rubber Curer Name Role Phone Unavailable Primary Care Provider Unavailabl e Encounter Details Date Type Department Care Team (Late st Contact Info) Description 10/11/2018 Transcribed Document [facility] [place] [facility] [place] [address] ProviderChula MD [address] [place] [address] Social History Tobacco Use Types [...] - Historical ProviderMD - 10/11/2018 6:12 AM CHAIN MENDER Pediatric Growth Entered On: 10/11/2018 6:12 EST Performed On: 10/11/2018 6:12 EST by Michelle Le Patient Movers Height and Weight, Clinical Dosing Height Source : Stated Height Entry Format : [place] Height, Feet : 5 ft(Converted to: 152 cm, 60 Inch) Height, Inches : 4 Inch(Converted to: 0 ft 4 Inch, 10.16 cm) Clinical Height : 162.56 cm Weight Source : Standing scale Weight Entry Format : [place] Clinical Dosing Weight : 87.73 kg Weight, Pounds : 193 lb Body Surface Area (BSA) : 1.93 m2 Body Mass Index : 33.2 kg/m2 (HI) [place] Body Weight : 54 kg Michelle Le Patient Movers - 10/11/2018 6:12 EST Electronically signed by Hanane [facility] Conversion National Recruiter Cerner at 01/06/2023 5:04 PM CDT documented in this encounter Plan of Treatment Not on file documented as of this encounter Visit Diagnoses Not on filedocumented in this encounter
--- OUTSIDE RECORDS SUMMARY | 2025-05-02 12:31 | XMS_ITS | Encounter Summary ---
Author Organization [employer] ([place], [place], [place], [place]) Address [address] [place] [address] Care Team Providers Care Sieve Repairer Name Role Phone Unavailable Primary Care Provider Unavailabl e Encounter Details Date Type Department Care Team (Late st Contact Info) Description 10/11/2018 Transcribed Document [facility] [place] [facility] [place] [address] ProviderChula MD [address] [place] [address] Social History Tobacco Use Types [...] - Chula ProviderMD - 10/11/2018 8:13 AM SUPERVISOR FRUIT GRADING POLINA Main OR PostOp Summary Primary Physician: JUANY PRICE MD Finalized Date/Time: 10/11/18 13:49:18 Pt. Name: SHIVAM BERNARDO.B./Sex: 1985 Female Med Rec #: [id number] Physician: JUANY PRICE MD Financial #: [id number] Pt. Type: O Room/Bed: [facility] Admit/Disch: 10/11/18 04:54:00 - [place] [facility] [place] PostOp Case Times Entry 1 In PACU II 10/11/18 11:36:00 Ready for PACU II 10/11/18 13:44:00 Discharge Discharge from PACU 10/11/18 13:44:00 II Last Modified By: Elba Ram Rn 10/11/18 13:49:17 SJCarole Main OR PostOp Case Times Audit 10/11/18 13:49:17 Training Associate: STEPH Modifier: STEPH <+> 1 Ready for PACU II Discharge <+> 1 Discharge from PACU II Finalized By: Elba Ram, Rn Document Signatures Signed By: Elba Ram Rn 10/11/18 13:49 Electronically signed by Hanane [facility] Conversion Team Psychologist Cerner at 01/06/2023 5:02 PM CDT documented in this encounter Plan of Treatment Not on file documented as of this encounter Visit Diagnoses Not on filedocumented in this encounter
--- OUTSIDE RECORDS SUMMARY | 2025-05-02 12:31 | XMS_ITS | Encounter Summary ---
Author Organization [employer] ([place], [place], [place], [place]) Address [address] [place] [address] Care Team Providers Care Supervisor Extrusion Name Role Phone Unavailable Primary Care Provider Unavailabl e Encounter Details Date Type Department Care Team (Late st Contact Info) Description 10/11/2018 Transcribed Document [facility] [place] Family Medicine [facility] [place] [address] ProviderChula MD [address] [place], [place] [id number] Social History Tobacco Use Types Packs/Day Years [...] - Historical ProviderMD - 10/11/2018 7:35 AM WILDERNESS GUIDE Event Note Entered On: 10/11/2018 7:37 EST [...]
--- OUTSIDE RECORDS SUMMARY | 2025-05-02 12:31 | XMS_ITS | Encounter Summary ---
Author Organization [employer] ([place], [place], [place], [place]) Address [address] [place] [address] Care Team Providers Care Neurology Hospitalist Name Role Phone Unavailable Primary Care Provider Unavailabl e Encounter Details Date Type Department Care Team (Late st Contact Info) Description 10/11/2018 Transcribed Document [facility] [place] [facility] [place] [address] ProviderChula MD [address] [place] [address] Social History Tobacco Use Types [...] - Historical ProviderMD - 10/11/2018 6:33 AM HAND ZIPPER TRIMMER Pre Procedure Adult Entered On: 10/11/2018 6:47 EST Performed On: 10/11/2018 6:33 EST by Naa Alonso Nurse - denise Height and Weight, Clinical Dosing Height Source : Stated Height Entry Format : [place] Height, Feet : 5 ft(Converted to: 152 cm, 60 Inch) Height, Inches : 4 Inch(Converted to: 0 ft 4 Inch, 10.16 cm) Clinical Height : 162.56 cm Weight Source : Standing scale Weight Entry Format : [place] Clinical Dosing Weight : 87.73 kg Weight, Pounds : 193 lb Body Surface Area (BSA) : 1.93 m2 Body Mass Index : 33.2 kg/m2 (HI) [place] Body Weight : 54 kg Naa Alonso [...] Obtained From : Patient Primary Language : Citizen Of [place] Preferred Communication Mode : Verbal Communication Barrier [...] Scale Risk Level : 0-24 Low Risk [place] Fall Interventions : Adequate lighting, Call device within reach, Wheels locked Naa Alonso Nurse - dneise - 10/11/2018 6:33 EST Fall Risk Education [...] form. Electronically signed by Shanika Koo Conversion Director Of Occupational Health Cerner at 01/06/2023 4:52 PM CDT documented in this encounter Plan of Treatment Not on file documented as of this encounter Visit Diagnoses Not on filedocumented in this encounter
--- OUTSIDE RECORDS SUMMARY | 2025-05-02 12:32 | XMS_ITS | Encounter Summary ---
Author Organization [employer] ([place], [place], [place], [place]) Address [address] [place] [address] Care Team Providers Care Product Safety Officer Name Role Phone Unavailable Primary Care Provider Unavailabl e Encounter Details Date Type Department Care Team (Late st Contact Info) Description 10/11/2018 Transcribed Document [facility] [place] Family Medicine [facility] [place] [address] ProviderChula MD [address] [place] [address] Social History Tobacco Use Types [...] - Chula ProviderMD - 10/11/2018 8:13 AM YARN WEIGHER POLINA Main OR PreOp Summary Primary Physician: JUANY PRICE MD Finalized Date/Time: 10/11/18 10:17:21 Pt. Name: SHIVAM BERNARD D.O.B./Sex: 1985 Female Med Rec #: [id number] Physician: JUANY PRICE MD Financial #: [id number] Pt. Type: O Room/Bed: [facility] Admit/Disch: 10/11/18 04:54:00 - Institution[place] [facility] [place] Pre[place] Case Times Entry 1 In Preop 10/11/18 05:30:00 Ready for Holding n/a Room Patient Ready for 10/11/18 06:47:00 Surgery Patient Out of Preop 10/11/18 07:35:00 Patient Out of n/a Holding Room Last Modified By: CYNDI LEONARD 10/11/18 10:17:20 SJE PreOp Case Times Audit 10/11/18 10:17:20 Orchestrator: MANDOINMARCK Modifier: [email or web address] <+> 1 Patient Out of Preop 10/11/18 06:47:33 Orchestrator: CRAINMA Modifier: [email or web address] <+> 1 Patient Ready for Surgery Finalized By: CYNDI LEONARD Document Signatures Signed By: CYNDI LEONARD 10/11/18 10:17 documented in this encounter Plan of Treatment Not on file documented as of this encounter Visit Diagnoses Not on filedocumented in this encounter
--- OUTSIDE RECORDS SUMMARY | 2025-05-02 12:32 | XMS_ITS | Encounter Summary ---
Author Organization [employer] ([place], [place], [place], [place]) Address [address] [place] [address] Care Team Providers Care Sales Service Executive Name Role Phone Unavailable Primary Care Provider Unavailabl e Encounter Details Date Type Department Care Team (Late st Contact Info) Description 09/27/2018 Transcribed Document [facility] [place] [facility] [place] [address] ProviderChula MD [address] [place] [address] Social History Tobacco Use Types [...] - Chula ProviderMD - 09/27/2018 10:30 AM CLINICAL DATA MANAGEMENT MANAGER Patient: SHIVAM BERNARD Age: 33 Years Sex: [...]
--- OUTSIDE RECORDS SUMMARY | 2025-05-02 12:32 | XMS_ITS | Clinical Summary ---
Author Organization [facility] Address [address] [place] [address] Care Team Providers Care Field Operations Coordinator Name Role Phone Provider, No Known Primary Care Provider [phone] Allergies No known active allergies Medications amLODIPine [...] given her abnormal NIPT this could be technical service representative of that testing. As of [...] that CMV testing was performed with primary ASP DEVELOPER and she said that the IgM was positive and that the antibody was high though we do not have records of this. This could be indicative of IgM with high avidity which could be technical service representative of new infection though patient [...] Description 04/30/2025 3:30 PM EDT Office Visit [facility] MATERNAL MEDICINE [address] [facility] [address] [place] [phone] Jessica Alejandra MD Chronic hypertension affecting (Primary Dx) 04/30/2025 3:18 PM EDT - 04/30/2025 11:59 PM EDT Hospital Encounter [facility] US PER DIAG CTR [address] [place] [address] Discharge Disposition: Home or Self Care 04/30/2025 Travel 04/08/2025 2:45 PM EDT Office Visit [facility] MATERNAL MEDICINE [address] [facility] [address] [place] [phone] Jessica Alejandra MD Chronic hypertension affecting (Primary Dx); Antepartum multigravida of advanced maternal age; Abnormal genetic test during ; Poor growth affecting management of mother in third trimester, single or unspecified fetus 04/08/2025 2:33 PM EDT - 04/08/2025 11:59 PM EDT Hospital Encounter [facility] US PER DIAG CTR [address] [place] [phone] Dominick Bentley MD Abnormal genetic test during ; Chronic hypertension affecting Discharge Disposition: Home or Self Care 04/08/2025 Travel 03/25/2025 3:00 PM EDT Office Visit [facility] MATERNAL MEDICINE [address] [facility] [address] [place] [phone] Dominick Bentley MD Poor growth affecting management of mother in third trimester, single or unspecified fetus (Primary Dx); Chronic hypertension affecting ; Antepartum multigravida of advanced maternal age; Abnormal genetic test during 03/25/2025 3:00 PM EDT - 03/25/2025 11:59 PM EDT Hospital Encounter [facility] PER DIAG CTR [address] [place] [address] Wilber Bender, Discharge Disposition: Home or Self Care 03/25/2025 Travel 02/25/2025 2:15 PM EDT Office Visit [facility] MATERNAL MEDICINE [address] [facility] [address] [place] [phone] Jessica Alejandra MD Antepartum multigravida of advanced maternal age (Primary Dx); Chronic hypertension affecting 02/25/2025 2:00 PM EDT - 02/25/2025 11:59 PM EDT Hospital Encounter [facility] PER DIAG CTR [address] [place] [address] Wilber Bender, Discharge Disposition: Home or Self [...] [facility] Routine 04/30/2025 3:41 PM EDT Chronic hypertension affecting Antepartum multigravida of advanced maternal age Poor growth affecting management of mother in third trimester, single or unspecified fetus [facility] Routine 04/08/2025 3:27 PM EDT Abnormal genetic test during Chronic hypertension affecting [facility] Routine 03/25/2025 3:56 PM EDT Abnormal genetic test during Chronic hypertension affecting [facility] Routine 02/25/2025 2:41 PM EDT Abnormal genetic test during Chronic hypertension affecting HEMOGLOBIN A1C Routine 01/08/2024 8:54 AM EDT Blighted ovum from Last 3 Months or Most Recently Relevant to Health Maintenance Results * [facility] (04/30/2025 3:41 PM EDT) Only the most recent of4 resultswithin the time period is included. Anatomical Region Laterality Modality Ultrasound 04/30/2025 3:28 PM EDT Narrative 04/30/2025 3:55 PM EDT PAT NAME: SHIVAM BERNARD [facility] REC#: [id number] DA: [id number] PAT GEND: F PAT TYPE: O EXAM ALIREZA: [id number] REF PHYS WILBER BENDER Comparison Studies The [...] EFW (oz) 3 oz EFW by: Hadlock ([id number]) Extended Cav. septi pel. tr 5.3 mm Wet Process Miller Head Assistant 6.3 mm Head / Face / Neck [...] 4-chamber view: Appears normal Heart / Thorax 7-etqioj-dtlwdee view: Appears normal Cord insertion: Normal Stomach: [...] Follow-up as clinically indicated. Coding ======= Description: 68648-58 Follow Up Ultrasound Description: 17055-52 BPP without NST Description: 00592-79 Doppler Umbilical Artery Manager Alliance: RT Minerva Salmon , [facility] Physician: Jessica Alejandra MD, FACOG Electronically signed by: Jessica Alejandra MD, FACOG at: 15:55 Procedure Note Jessica Alejandra MD - 04/30/2025 PAT NAME: SHIVAM BERNARD MED REC#: [id number] DA: [id number] PAT GEND: F PAT TYPE: O EXAM ALIREZA: [id number] REF PHYS WILBER BENDER Comparison Studies The findings of this study are compared to the prior ultrasound studydated 04/08/25 Patient Status Outpatient Indication ======== AMA. CHTN. Follow up IUGR. Abnormal NIPT (high risk triploidy, T13, T18.)Hx preeclampsia & PTD (32 & 35 wk). Morbid obesity BMI 41. Maternal Assessment Ekuvei719 cm Height (ft)5 ft Height (in)3 in Oreffc599 kg Weight (lb)232 lb BMI41.11 kg/m Method ======= Transabdominal ultrasound examination. View: Suboptimal view: limited bylate gestational age ========= Black . Number of fetuses: 1 Dating ====== Method of dating:based on stated ARIA GA by prior [id number] w + 0 d ARIA by prior assessment:05/28/2025 Ultrasound examination on:04/30/2025 GA by U/S based upon:AC, BPD, Femur, HC GA by U/S34 w + 1 d ARIA by U/S:06/10/2025 Previous dating:based on stated ARIA, selected on 04/08/2025 Agreed ARIA of previous datin05/28/2025 Assigned:based on stated ARIA, selected on 04/30/2025 Assigned GA36 w + 0 d Assigned ARIA:05/28/2025 [id number] d Biometry Standard BPD84.9 mm 34w 1d 13% Hadlock JHO118.1 mm 34w 4d 18% Bella HC303.8 mm 33w 5d <1% Hadlock AC301.8 mm 34w 1d 12% Hadlock Femur66.7 mm 34w 2d 10% Hadlock Afazzxs20.3 mm 34w 3d 29% Bella HC / AC1.01 EFW2,363 g 34w 0d 11% Hadlock EFW (lb)5 lb EFW (oz)3 oz EFW by:Hadlock ([id number]-FL) Extended Cav. septi pel. tr5.3 mm Vp6.3 mm Head / Face / Neck Cephalic index0.81 44% Nicolaides Extremities / Bony Struc FL / BPD0.79 FL / HC0.22 FL / AC0.22 Other Structures ZYA554 bpm General Evaluation Cardiac activity present. FHR [...] Lips:Normal 4-chamber view:Appears normal Heart / Thorax 0-kvckqz-yqcbwxc view:Appears normal Cord insertion:Normal Stomach:Appears normal Kidneys:Appears [...] Recommendation Follow-up as clinically indicated. Coding ======= Description:41689-21 Follow Up Ultrasound Description:76400-47 BPP without NST Description:73895-51 Doppler Umbilical Artery Manager Alliance: RT Minerva Salmon , [facility] Physician: Jessica Alejandra MD, FACOG [...] - 01/09/2024 8:16 AM EDT Performed at: [address] [place] [address] [id number] Straw Hat Brim Cutter Operator: Kevin Staley MD, Phone: [phone] Patient Fasting: N us Caleb Alves MD LAB BLOOD ORDERABLES Fin al Result [facility] (AMBULATORY) [address] [place] [address], [place] [phone] [facility] [address] [place] [address], [place] [phone] from Last 3 Months or Most Recently Relevant to Health Maintenance Insurance [facility] Care Teams Field Operations Coordinator Relationship Specialty Start Date End Date Provider, No Known [facility] [place] [address] PCP - General 01/04/24
--- OUTSIDE RECORDS SUMMARY | 2025-05-02 12:32 | XMS_ITS | Encounter Summary ---
Author Organization [employer] ([place], [place], [place], [place]) Address [address] [place] [address] Care Team Providers Care Infant Childcare Provider Name Role Phone Unavailable Primary Care Provider Unavailabl e Encounter Details Date Type Department Care Team (Late st Contact Info) Description 10/11/2018 Transcribed Document [facility] Family Medicine [facility] [address] ProviderChula MD [address] [place] [address] Social History Tobacco Use Types [...] - Chula ProviderMD - 10/11/2018 8:13 AM WASTE WATER PLANT OPERATOR POLINA Main OR IntraOp Summary Primary Physician: JUANY PRICE MD Finalized Date/Time: 10/11/18 09:39:55 Pt. Name: RAIN BERNARDLONNIE Acevedo /Sex: 1985 Female Med Rec #: [id number] Physician: JUANY PRICE MD Financial #: [id number] Pt. Type: O Room/Bed: [facility] Admit/Disch: 10/11/18 04:54:00 - Institution: [facility] IntraOp Case Attendance Entry 1 Entry 2 Entry 3 Case Attendee JUANY PRICE MD BRUNNER, RICHARD V, Chelsey Bran Rn-Surgery Role Performed Surgeon/Proceduralist, CLAY THROWER/Nurse Steward/Stewardess Dining Room Cylinder Steamer, First First Time In 10/11/18 07:39:00 10/11/18 [...] BRUNER, HAVEN Role Performed Scrub, First Physician yard assistant Broadcaster Time In 10/11/18 07:39:00 10/11/18 07:39:00 10/11/18 07:39:00 Time Out 10/11/18 09:33:00 10/11/18 09:33:00 10/11/18 09:33:00 Procedure Lumbar Microdiscectomy Lumbar Microdiscectomy Lumbar Microdiscectomy Other Attendee Superficial Wound Closed By: Last Modified By: Chelsey Mae Demike, Cynthia Y, Demike, Cynthia Y, Rn-Surgery 10/11/18 Rn-Surgery 10/11/18 Rn-Surgery 10/11/18 09:33:47 09:33:47 09:33:47 Entry 7 Entry 8 Case Attendee FABIAN CRUZ, RN [address] ST Role Performed Cylinder Steamer, Second Scrub, Second Time In 10/11/18 08:48:00 10/11/18 09:02:00 Time Out 10/11/18 09:02:00 10/11/18 09:33:00 Procedure Lumbar Microdiscectomy Lumbar Microdiscectomy Other Attendee Superficial Wound Closed By: Last Modified By: Chelsey Mae Demike, Cynthia Y, Rn-Surgery 10/11/18 Rn-Surgery 10/11/18 09:33:47 09:33:47 [facility] IntraOp Case Attendance Audit 10/11/18 09:33:47 Stucco Worker: [id number] Modifier: [id number] 1 <*> Procedure Lumbar Microdiscectomy 2 <+> [...] 8 <*> Procedure Lumbar Microdiscectomy 10/11/18 09:21:03 Stucco Worker: [id number] Modifier: [id number] 1 <+> Time Out 1 <*> Procedure Lumbar Microdiscectomy 10/11/18 09:04:27 Stucco Worker: [id number] Modifier: [id number] <+> 1 Procedure 2 <*> Procedure Lumbar Microdiscectomy 3 <*> Procedure Lumbar Microdiscectomy 4 <*> Procedure Lumbar Microdiscectomy 5 <*> Procedure Lumbar Microdiscectomy 6 <*> Procedure Lumbar Microdiscectomy 7 <*> Procedure Lumbar Microdiscectomy 8 <*> Procedure Lumbar Microdiscectomy 10/11/18 09:04:05 Stucco Worker: [id number] Modifier: [id number] <+> 7 Case Attendee <+> 7 Role Performed <+> 7 Time In <+> 7 Time Out <+> 7 Procedure <+> 8 Case Attendee <+> 8 Role Performed <+> 8 Time In <+> 8 Procedure 10/11/18 08:29:38 Stucco Worker: [id number] Modifier: [id number] 2 <*> Procedure Lumbar Microdiscectomy 3 <*> Procedure Lumbar Microdiscectomy 4 <*> Procedure Lumbar Microdiscectomy 5 <*> Procedure Lumbar Microdiscectomy 6 <+> Time In 6 <*> Procedure Lumbar Microdiscectomy 10/11/18 08:24:25 Stucco Worker: [id number] Modifier: [id number] 2 <*> Procedure Lumbar Microdiscectomy 3 <*> Procedure Lumbar Microdiscectomy 4 <*> Procedure Lumbar Microdiscectomy 5 <+> Time In 5 <*> Procedure Lumbar Microdiscectomy <+> 6 Case Attendee <+> 6 Role Performed <+> 6 Procedure 10/11/18 08:13:49 Stucco Worker: [id number] Modifier: [id number] <+> 1 Time In 2 <+> Time [...] [facility] IntraOp Case Times Audit 10/11/18 09:33:44 Stucco Worker: [id number] Modifier: [id number] <+> 1 Out Room Time <+> 1 Stop Time 10/11/18 09:33:20 Stucco Worker: [id number] Modifier: [id number] <+> 1 Stop Time 10/11/18 08:13:56 Stucco Worker: [id number] Modifier: [id number] <+> 1 Start Time [facility] IntraOp Cautery [...] 08:35:57 SJE IntraOp Cautery Audit 10/11/18 08:35:57 Stucco Worker: [id number] Modifier: [id number] 1 <*> Grounding Pad Site Right Lower [...] [facility] IntraOp Counts Final Audit 10/11/18 09:21:17 Stucco Worker: [id number] Modifier: [id number] 1 <*> Procedure Lumbar Microdiscectomy 1 <+> [...] Rn-Surgery 10/11/18 08:26:46 S[facility] IntraOp General Case Door To Door Salesperson 1 Case Information OR OR 01 SJE [...] Avitene 1Gm powder - Marcaine 0.25% 30ml [id number] vial - [id number] Combo Med List Time Administered Route of [...] Intra Op Sign Out Audit 10/11/18 09:39:50 Stucco Worker: [id number] Modifier: [id number] <+> 1 RN Sign Out Signature Date/Time [...] [facility] IntraOp Surgical Procedures Audit 10/11/18 09:33:24 Stucco Worker: [id number] Modifier: [id number] 1 <*> Procedure Lumbar Microdiscectomy 1 <+> Stop 10/11/18 09:21:35 Stucco Worker: [id number] Modifier: [id number] 1 <*> Procedure Lumbar Microdiscectomy 1 <+> Specialty 10/11/18 09:04:26 Stucco Worker: [id number] Modifier: [id number] <+> 1 Primary Procedure <+> 1 Primary Surgeon <+> 1 Start <+> 1 Wound Class <+> 1 Anesthesia Type <+> 1 Additional Procedure Description [facility]JE IntraOp Temp Regulation Devices Entry 1 Temp Regulation Temperature Forced Air Warming Regulation Device device Temperature Upper body Regulation Site Temperature Device 43 Setting Temperature CARLTON HARKINS V CLAY THROWER Regulation Device Applied by Last Modified By: [...] SJE IntraOp Time Out Audit 10/11/18 08:33:51 Stucco Worker: [id number] Modifier: [id number] 1 <+> Beta Thalia Administered 1 <+> [...] Rn-Surgery 10/11/18 09:39 Electronically signed by Hanane [facility] Conversion Transitional Nurse Cerner at 01/06/2023 4:42 PM CDT documented in this encounter Plan of Treatment Not on file documented as of this encounter Visit Diagnoses Not on filedocumented in this encounter
--- OUTSIDE RECORDS SUMMARY | 2025-05-02 12:32 | XMS_ITS | Encounter Summary ---
Author Organization [employer] ([place], [place], [place], [place]) Address [address] [place] [address] Care Team Providers Care Certified Pathology Assistant Name Role Phone Unavailable Primary Care Provider Unavailabl e Encounter Details Date Type Department Care Team (Late st Contact Info) Description 10/11/2018 Transcribed Document [facility] Family Medicine [facility] [place] [address] ProviderChula MD [address] [place] [address] Social History Tobacco Use Types [...] - Historical ProviderMD - 10/11/2018 8:12 AM COUNSELOR EDUCATION PROFESSOR Peripheral Nerve Block Entered On: 10/11/2018 8:13 [...] - 10/11/2018 8:12 EST Electronically signed by [facility], [facility] Conversion Rn Emergency Cerner at 01/06/2023 4:48 PM CDT documented in this encounter Plan of Treatment Not on file documented as of this encounter Visit Diagnoses Not on filedocumented in this encounter
--- OUTSIDE RECORDS SUMMARY | 2025-05-02 12:32 | XMS_ITS | Clinical Summary ---
Author Organization [facility] Address [address] [place] [address] Care Team Providers Care Marketing Producer Name Role Phone Rosemary Fuller Primary Care [...] Tdap) 09/12/2023 09/12/2013 Colonoscopy 12/29/2023 12/29/2021, 11/13/2019 [id number] Vaccine ( - season) 2024 UKY-Depression Screening [...] RN Endo Nurse Roberto Carlos Davis CRNA CONFIDENTIAL SECRETARY, No role selected Kell Carrera RN Endo Nurse Mady Alvarez Endo Nurse James Morales MD Anesthesiologist MD Daniel Dinero MD Proceduralist Inventory Management Specialist Unknown Endo Nurse 1 Endo Nurse [...] of bowel preparation was evaluated using the [place] Bowel Preparation Scale with scores of: right [...] were documented in this log. Findings Healthy hbfx-yu-czen ileocolonic anastomosis with no bleeding The rectum [...] <6.0% Children and Adolescents <7.5% . Source: [place] [employer]. Standards of medical care in [...] Insurance [employer] Care Teams Marketing Producer Relationship Specialty Start Date End Date Rosemary Fuller PA [address] [place] [address] [place] [address] PCP - General 01/29/21
--- OUTSIDE RECORDS SUMMARY | 2025-05-02 12:32 | XMS_ITS | Encounter Summary ---
Author Organization [facility] Address [address] [place] [address] Care Team Providers Care Applications Systems Analyst Name Role Phone Provider, No Known Primary Care Provider [phone] Encounter Details Date Type Department Care Team [...] on filedocumented in this encounter Care Teams Applications Systems Analyst Relationship Specialty Start Date End Date Provider, [place] [address] PCP - General 01/04/24 documented as of this encounter
--- OUTSIDE RECORDS SUMMARY | 2025-05-02 12:32 | XMS_ITS | Encounter Summary ---
Author Organization [employer] ([place], [place], [place], [place]) Address [address] [place] [address] Care Team Providers Care Squad Boss Name Role Phone Unavailable Primary Care Provider Unavailabl e Encounter Details Date Type Department Care Team (Late st Contact Info) Description 10/11/2018 Transcribed Document [facility] Family Medicine [facility] [place] [address] ProviderChula MD [address] [place] [address] Social History Tobacco Use Types [...] Chula ProviderMD - 10/11/2018 8:13 AM MEDICAL BILLER E Main OR PACU Summary Primary Physician: JUANY PRICE MD Finalized Date/Time: 10/11/18 11:43:57 Pt. Name: SHIVAM BERNARD D.O.B./Sex: 1985 Female Med Rec #: [id number] Physician: JUANY PRICE MD Financial #: [id number] Pt. Type: O Room/Bed: [facility] Admit/Disch: 10/11/18 04:54:00 - Institution: [facility] Main OR PACU Case [...] RN 10/11/18 11:43 Electronically signed by Hanane [facility] Conversion Mathematics Teacher Cerner at 01/06/2023 4:48 PM CDT documented in this encounter Plan of Treatment Not on file documented as of this encounter Visit Diagnoses Not on filedocumented in this encounter
--- OUTSIDE RECORDS SUMMARY | 2025-05-02 12:32 | XMS_ITS | Encounter Summary ---
Author Organization [employer] ([place], [place], [place], [place]) Address [address] [place] [address] Care Team Providers Care Husker Operator Name Role Phone Unavailable Primary Care Provider Unavailabl e Encounter Details Date Type Department Care Team (Late st Contact Info) Description 10/11/2018 Transcribed Document [facility] Family Medicine [facility] [place] [address] ProviderChula MD [address] [place] [address] Social History Tobacco Use Types [...] - Historical ProviderMD - 10/11/2018 7:31 AM ELECTRIC DISTRIBUTION ENGINEER Event Note Entered On: 10/11/2018 7:33 EST [...]
--- OUTSIDE RECORDS SUMMARY | 2025-05-02 12:32 | XMS_ITS | Encounter Summary ---
Author Organization [facility] Address [address] [place] [address] Care Team Providers Care Rn Anesthesiology Name Role Phone Provider, No Known Primary [...] on filedocumented in this encounter Care Teams Rn Anesthesiology Relationship Specialty Start Date End Date Provider, [place] [address] PCP - General 01/04/24 documented as of this encounter
--- OUTSIDE RECORDS SUMMARY | 2025-05-02 12:32 | XMS_ITS | Clinical Summary ---
Author Organization [employer] ([place], [place], [place], [place]) Address [address] [place] [address] Care Team Providers Care Steel Fabricator Name Role Phone Unavailable Primary Care Provider [...]
--- OUTSIDE RECORDS SUMMARY | 2025-05-02 12:32 | XMS_ITS | Encounter Summary ---
Author Organization [facility] Address [address] [place] [address] Care Team Providers Care Manager Export Name Role Phone Provider, No Known Primary Care Provider [phone] Encounter Details Date Type Department Care Team [...] on filedocumented in this encounter Care Teams Manager Export Relationship Specialty Start Date End Date Provider, [place] [address] PCP - General 01/04/24 documented as of this encounter
--- OUTSIDE RECORDS SUMMARY | 2025-05-02 12:32 | XMS_ITS | Encounter Summary ---
Author Organization [employer] ([place], [place], [place], [place]) Address [address] [place] [address] Care Team Providers Care Furniture Mover Name Role Phone Unavailable Primary Care Provider Unavailabl e Encounter Details Date Type Department Care Team (Late st Contact Info) Description 09/27/2018 Transcribed Document [facility] Family Medicine [facility] [place] [address] ProviderChula MD [address] [place] [address] Social History Tobacco Use [...] - Chula ProviderMD - 09/27/2018 10:11 AM SHIRT FOLDING MACHINE OPERATOR PAT Adult Entered On: 09/27/2018 [...] Source : Stated Height Entry Format : [place] Height, Feet : 5 ft(Converted to: 152 cm, 60 Inch) Height, Inches : 4 Inch(Converted to: 0 ft 4 Inch, 10.16 cm) Clinical Height : 162.56 cm Weight Source : Standing scale Weight Entry Format : [place] Clinical Dosing Weight : 88.18 kg Weight, Pounds : 194 lb Body Surface Area (BSA) : 1.93 m2 Body Mass Index : 33.4 kg/m2 ([place]) [place] Body Weight : 54 kg Veronica Marin [...] Obtained From : Patient Primary Language : Azeri Preferred Communication Mode : Verbal Communication Barrier [...]
--- OUTSIDE RECORDS SUMMARY | 2025-05-02 12:32 | XMS_ITS | Referral Summary ---
Author Organization [employer] ([place], [place], [place], [place]) Address [address] [place] [address] Care Team Providers Care Reception Centre Manager Name Role Phone Unavailable Primary Care [...]
--- NOTE | 2025-05-02 12:39 | US_ITS ---
PROCEDURE: US OB BIOPHYSICAL PROFILE CLINICAL INDICATION: NON REACTIVE NST COMPARISON: US US OB <= 14 WEEKS FETUS from 10/31/2024 US US OB BIOPHYSICAL PROFILE from 04/01/2025 US US OB BIOPHYSICAL PROFILE from 04/15/2025 US US OB BIOPHYSICAL PROFILE from 04/25/2025 FINDINGS: Transabdominal sonographic images of the uterus were obtained. From her established due date she is 36weeks 2days. The following parameters are obtained: Viable Fetus in the cephalic presentation with a posterolateral placenta grade 2. There are several placental lakes. The cervix measures 2.76 cm Measurements: heart Rate = 147bpm Amniotic fluid index: 16.65cm, MVP 6.04 cm Qualitative AFV:2 Breathing movements: 2 Gross Body Movements: 2 Tone: 2 Biophysical profile score: 8 No obvious anomalies evident.Kidneys, bladder, four-chamber heart, three-vessel cord appear normal. IMPRESSION: 1. Viable fetus in the cephalic presentation with a posterolateral placenta grade 2. 2. The fluid is within normal limits with an amniotic fluid index 16.65 cm, MVP 6.04 cm. 3. Biophysical profile is 8/8 with good breathing movement and movement seen. 4. Limited anatomical scan appears normal. Dictated by: Juan F Mcallister MD 05/02/2025 18:18 Juan F Mcallister MD in OV 05/02/2025 18:18
[2025-05-02 13:00] VITALS: BP 128/72; PULSE 82; RESP 19; TEMP 37.2; O2SAT 98; BMI 39.8
[2025-05-02] MEDS: IRON SUCROSE COMPLEX 200 MG in 0.9 % SODIUM CHLORIDE 100 ML 220 MG IV (13:02)
== END 2025-05-02 13:59 | disposition home or self-care (01) ==
LOC: OBOUT 12:30 → OB 12:31
PROVIDERS: PCP Nurse Practitioner; Visit Provider Obstetrics & Gynecology
DX: O99.013 Anemia complicating pregnancy, third trimester (principal); Z3A.36 36 weeks gestation of pregnancy
CPT/HCPCS: 59025; 76819; 86403; 96365; 96367; 99212; G0463; J1756

== ENCOUNTER 2025-05-07 09:54 | Inpatient (IN) | payer OTHER, SELFPAY ==
--- OUTSIDE RECORDS SUMMARY | 2025-03-25 15:00 | XMS_ITS | Encounter Summary ---
[facility] Organization [facility] Address [address] [place] [address] Care Team Providers Care Asset Protection Agent Name Role Phone Provider, No Known Primary Care Provider [phone] Reason for Visit * Reason Comments ama, CHTN, ABN NIPT Encounter Details Date Type Department Care Team (Late st Contact Info) Description 03/25/2025 3:00 PM EDT Office Visit [facility] MATERNAL MEDICINE [address] [facility] [address] [place] [address] Dominick Bentley MD [address] [facility] [address] [place] [address] Poor growth affecting management of mother in third trimester, single or unspecified fetus (Primary Dx); Chronic hypertension affecting ; Antepartum multigravida of advanced maternal age; Abnormal genetic test during Social History Tobacco Use Types Packs/Day Years [...] Sign Reading Time Taken Comments Blood Pressure 127/80 03/25/2025 3:21 PM EDT Pulse - - Temperature - - Respiratory Rate - - Oxygen Saturation - - Inhaled Oxygen Concentration - - Weight 103 kg (227 lb) 03/25/2025 3:21 PM EDT Height - - Body Mass Index 40.21 12/30/2024 2:09 PM EDT documented in this encounter Progress Notes * Dominick Bentley MD - 03/25/2025 4:15 PM EDTAssociated Problem(s): Poor growth affecting management of mother in third trimester Patient's growth ultrasound shows overall weight at the 3rd percentile and abdominal circumference at the 11th percentile. Normal BHAVYA, BPP, umbilical artery Dopplers. We discussed that given the the overall growth at the 3rd percentile this gives a diagnosis of growth restriction. Fetalgrowth lag is primarily driven by shortened long bones particularly of the humerus and the femur, other long bones do not appear as shortened. Patient with multiple risk factors for poor growthincluding AMA, chronic hypertension, abnormal NIPT. We discussed that given her abnormal NIPT this could be plastic products sales representative of that testing. As of note patient herself also only 5 foot 3 inches with aprevious child only measuring 2 pounds and 15 ounces at 32 weeks, therefore a component of this maybe constitutional in nature. We discussed that given primarily driven by the long bones that this also could be indicative of skeletal dysplasia, though this is less likely secondary to no other features of skeletal dysplasia like abnormal head or chest size. There are no current predictors of lethality if this is a skeletal dysplasia. Patient also reports that CMV testing was performed with primary SIDE SEAM TENDER and she said that the IgM was positive and that the antibody was high though we do not have records of this. This could be indicative of IgM with high avidity which could be plastic products sales representative of new infection though patient states this was performed at the beginning of . We discussed that regardless of cause we recommend continued close testing and monitoring the fetus. Plan for follow-up here in 2 weeks for repeat growth ultrasound. Recommend twice-weekly testing in your office (1 being BPP, BHAVYA, umbilical artery Dopplers). Would recommend delivery at 37weeks or sooner if clinically indicated. * Dominick Bentley MD - 03/25/2025 3:31 PM EDTAssociated Problem(s): Chronic hypertension affecting Patient presents for follow-up growth ultrasound secondary to AMA, chronic hypertension, abnormal NIPT. Blood sugar today 127/80. * Deb Aguilar RN - 03/25/2025 3:00 PM EDT Patient denies bleeding, leaking fluid or contractions NIPT abnormal, increased risk of T13, T18 Patients next follow up with Dr. Bender is 03/27/25 * Dominick Bentley MD - 03/25/2025 3:00 PM EDT Maternal/ Medicine Consult Note Date: 03/25/2025 Name: Kala Beltran : 1985 Referring Provider: Jocelyn Bender DO Chief Complaint ama, CHTN, ABN NIPT Subjective History of Present Illness: Kala Beltran is a 39 y.o. 30w6d who presents today for AMA, chronic hypertension, abnormal NIPT ARIA: Estimated Date of Delivery: 05/28/25 ROS: Otherwise Noted in HPI Current Outpatient Medications: aspirin 81 MG EC tablet, Take 1 tablet by mouth 2 (Two) Times a Day., Disp: , Rfl: famotidine (PEPCID) 40 MG tablet, Take 1 tablet by mouth Daily., Disp: , Rfl: hydrOXYzine (ATARAX) 10 MG tablet, Take 1 tablet by mouth Every 6 (Six) Hours. (Patient taking differently: Take 1 tablet by mouth As Needed.), Disp: , Rfl: omeprazole (priLOSEC) 20 MG capsule, Take 1 capsule by mouth Daily., Disp: , Rfl: Vit-Fe Fumarate-FA ( vitamin 27-0.8) 27-0.8 MG tablet tablet, Take 1 tablet by mouth Daily., Disp: , Rfl: sertraline (ZOLOFT) 50 MG tablet, Take 1 tablet by mouth Daily., Disp: , Rfl: amLODIPine (NORVASC) 5 MG tablet, take 1 tablet (5 mg) by oral route once daily (Patient not taking: Reported on 03/25/2025), Disp: , Rfl: labetalol (NORMODYNE) 200 MG tablet, Take 1 tablet by mouth 3 times a day., Disp: , Rfl: Objective Vital Signs BP 127/80 Wt 103 kg (227 lb) LMP 10/25/2023 Estimated body mass index is 40.21 kg/m?? as calculated from the following: Height as of 12/30/24: 160 cm (63 ). Weight as of this encounter: 103 kg (227 lb). Ultrasound Impression: See Viewpoint Assessment and Plan Kala Beltran is a 39 y.o. 30w6d who presents today for AMA, chronic hypertension, abnormal NIPT Diagnoses and all orders for this visit: 1. Poor growth affecting management of mother in third trimester, single or unspecified fetus(Primary) Assessment & Plan: Patient's growth ultrasound shows overall weight at the 3rd percentile and abdominal circumference at the 11th percentile. Normal BHAVYA, BPP, umbilical artery Dopplers. We discussed that given the the overall growth at the 3rd percentile this gives a diagnosis of growth restriction. Fetalgrowth lag is primarily driven by shortened long bones particularly of the humerus and the femur, other long bones do not appear as shortened. Patient with multiple risk factors for poor growthincluding AMA, chronic hypertension, abnormal NIPT. We discussed that given her abnormal NIPT this could be plastic products sales representative of that testing. As of note patient herself also only 5 foot 3 inches with aprevious child only measuring 2 pounds and 15 ounces at 32 weeks, therefore a component of this maybe constitutional in nature. We discussed that given primarily driven by the long bones that this also could be indicative of skeletal dysplasia, though this is less likely secondary to no other features of skeletal dysplasia like abnormal head or chest size. There are no current predictors of lethality if this is a skeletal dysplasia. Patient also reports that CMV testing was performed with primary SIDE SEAM TENDER and she said that the IgM was positive and that the antibody was high though we do not have records of this. This could be indicative of IgM with high avidity which could be plastic products sales representative of new infection though patient states this was performed at the beginning of . We discussed that regardless of cause we recommend continued close testing and monitoring the fetus. Plan for follow-up here in 2 weeks for repeat growth ultrasound. Recommend twice-weekly testing in your office (1 being BPP, BHAVYA, umbilical artery Dopplers). Would recommend delivery at 37weeks or sooner if clinically indicated. Orders: - [facility]; Standing 2. Chronic hypertension affecting Assessment & Plan: Patient presents for follow-up growth ultrasound secondary to AMA, chronic hypertension, abnormal NIPT. Blood sugar today 127/80. Orders: - [facility]; Standing 3. Antepartum multigravida of advanced maternal age - [facility] [place]; Standing 4. Abnormal genetic test during Follow Up 2 weeks I spent 30 minutes caring for the patient on the day of service. This included: obtaining or reviewing a separately obtained medical history, reviewing patient records, performing a medically appropriate exam and/or evaluation, counseling or educating the patient/family/caregiver, ordering medications, labs, and/or procedures and documenting such in the medical record. This does not include time spent on review and interpretation of other tests such as ultrasound or the performance of other procedures such as amniocentesis or CVS. Dominick Bentley MD, FACOG Maternal Medicine, [facility] documented in this encounter Plan of Treatment Not on file documented as of this encounter Visit Diagnoses Diagnosis Poor growth affecting management of mother in third trimester, single or unspecified fetus- Primary Chronic hypertension affecting Antepartum multigravida of advanced maternal age Abnormal genetic test during documented in this encounter Care Teams Asset Protection Agent Relationship Specialty Start Date End Date Provider, [place] [address] PCP - General 01/04/24 documented as of this encounter
--- OUTSIDE RECORDS SUMMARY | 2025-03-25 15:00 | XMS_ITS | Encounter Summary ---
Author Organization [facility] Address [address] [place] [address] Care Team Providers Care Advertising Statistical Clerk Name Role Phone Provider, No Known Primary Care Provider [phone] Reason for Visit * Diagnostic Imaging (Routine) - Closed Specialty Diagnoses / Procedures Referred By Carolyne diaz Referred To Contact Radiology Diagnoses Abnormal genetic test during Chronic hypertension affecting Procedures [facility] Bentley, Dominick Silva MD [address] [place] [address] Phone: tel: fax: Referral ID Status Reason Start Date Expiration Date Visits Re quested Visits Authorized [id number] Closed 12/30/2024 03/31/2026 4 4 Encounter Details Date Type Department Care Team (Latest Contact Info) Description 03/25/2025 3:00 PM EDT - 03/25/2025 11:59 PM EDT Hospital Encounter [facility] PER DIAG CTR [address] [place] [address] Wilber Bender, 12[address] [facility] [address] [id number] Discharge Disposition: Home or Self Care Social [...] Procedure Name Priority Date/Time Associated Diagnosis Comments REPLAC[facility] BY [facility] Routine 03/25/2025 3:56 PM EDT Abnormal genetic test during Chronic hypertension affecting documented in this encounter Results * [facility] (03/25/2025 3:56 PM EDT) Anatomical Region Laterality Modality Ultrasound 03/25/2025 3:25 PM EDT Narrative 03/25/2025 4:18 PM EDT PAT NAME: SHIVAM BERNARD MED REC#: [id number] DA: [id number] PAT GEND: F PAT TYPE: O EXAM ALIREZA: [id number] REF PHYS LIVIA WILBER Comparison Studies The findings of this study [...] EFW (oz) 13 oz EFW by: Hadlock (ROQ-EI-SV-FL) Extended Tibia 45.8 mm 27w 6d 2% Bella Fibula 45.4 mm 28w 1d 15% Bella Foot 57.5 mm 9% Chitty Radius 37.7 mm 26w 2d 14% Belal Ulna 41.3 mm 26w 6d <1% Bella Cav. septi pel. tr 5.5 mm Food Handler 3.8 mm CM 4.7 mm 3% Nicolaides [...] (one being BPP/BHAVYA/UA dopplers). Coding ======= Description: 91306-29 Follow Up Ultrasound Description: 93735-99 BPP without NST Description: 97502-32 Doppler Umbilical Artery Director Advertising: Yoly Choudhary RDMS Physician: Dominick Bentley MD, FACOG Electronically signed by: Dominick Bentley MD, FACOG at: 16:18 Procedure Note Dominick Bentley MD - 03/25/2025 PAT NAME: SHIVAM BERNARD MED REC#: [id number] DA: [id number] PAT GEND: F PAT TYPE: O EXAM ALIREZA: [id number] REF PHYS WILBER BENDER Comparison Studies The findings of this study are compared to the prior ultrasound studydated 02/25/25. Patient Status Outpatient Indication ======== Abnormal NIPT (high risk triploidy, T13, T18.) AMA. CHTN. Hx preeclampsia& PTD (32 & 35 wk). Obesity BMI 39. Maternal Assessment Yijnmx946 cm Height (ft)5 ft Height (in)3 in Avznnj812 kg Weight (lb)227 lb BMI40.22 kg/m Method ======= Transabdominal ultrasound examination ========= Black . Number of fetuses: 1 Dating ====== GA by prior w + 6 d [...] GA30 w + 6 d Assigned ARIA:05/28/2025 sufwhj823 d Biometry Standard BPD74.1 mm 29w 5d 11% Hadlock OFD93.7 mm 30w 2d 33% Bella HC267.1 mm 29w 1d <1% Hadlock Cerebellum tr38.6 mm 31w 3d 48% Hill AC252.3 mm 29w 3d 11% Hadlock Femur51.2 mm 27w 3d <1% Hadlock Cnwcatn53.3 mm 26w 2d <1% Bella HC / AC1.06 EFW1,278 g 28w 3d 3% Hadlock EFW (lb)2 lb EFW (oz)13 oz EFW by:Hadlock (LUA-CE-PE-FL) Extended Tibia45.8 mm 27w 6d 2% Bella Auofyh68.4 mm 28w 1d 15% Bella Foot57.5 mm 9% Chitty Ygwsnw49.7 mm 26w 2d 14% Bella Ulna41.3 mm 26w 6d <1% Bella Cav. septi pel. tr5.5 mm Vp3.8 mm CM4.7 mm 3% Nicolaides Head / Face / Neck Cephalic index0.79 46% Nicolaides Extremities / Bony Struc FL / BPD0.69 FL / HC0.19 FL / AC0.20 Other Structures KXY375 bpm General Evaluation Cardiac activity present. FHR [...] office (one being BPP/BHAVYA/UA dopplers). Coding ======= Description:76454-59 Follow Up Ultrasound Description:73892-42 BPP without NST Description:77708-16 Doppler Umbilical Artery Director Advertising: Yoly Choudhary RDMS Physician: Dominick Bentley MD, FACOG Electronically signed by: Dominick Bentley MD, FACOG at: 16:18 us Dominick Bentley MD IMG US ORDERABLES Final Result documented in this encounter Visit Diagnoses Not on filedocumented in this encounter Care Teams Advertising Statistical Clerk Relationship Specialty Start Date End Date Provider, No Known [place] [id number] PCP - General 01/04/24 documented as of this encounter
--- OUTSIDE RECORDS SUMMARY | 2025-04-08 14:33 | XMS_ITS | Encounter Summary ---
Author Organization [facility] Address [address] [place] [address] Care Team Providers Care Carburizing Furnace Operator Name Role Phone Provider, No Known Primary Care Provider [phone] Reason for Referral * Diagnostic Imaging (Routine) - Closed Specialty Diagnoses / Procedures Referred By Carolyne daiz Referred To Contact Radiology Diagnoses Abnormal genetic test during Chronic hypertension affecting Procedures [facility] Dominick Bentley MD [address] [place] [address] Phone: tel: fax: Referral ID Status Reason Start Date Expiration Date Visits Re quested Visits Authorized [id number] Closed 12/30/2024 03/31/2026 4 4 Reason for Visit * Diagnostic Imaging (Routine) - Closed Specialty Diagnoses / Procedures Referred By Carolyne diaz Referred To Contact Radiology Diagnoses Abnormal genetic test during Chronic hypertension affecting Procedures [facility] Diagnostic [place] Dominick Bentley MD [address] [facility] [address] [place] [address] Phone: tel: fax: Referral ID Status Reason Start Date Expiration Date Visits Re quested Visits Authorized [id number] Closed 12/30/2024 03/31/2026 4 4 Encounter Details Date Type Department Care Team (Late st Contact Info) Description 04/08/2025 2:33 PM EDT - 04/08/2025 11:59 PM EDT Hospital Encounter [facility] PER [facility] [address] [place] [address] Dominick Bentley MD [address] [place] [address] Abnormal genetic test during ; Chronic hypertension [...] affecting documented in this encounter Results * [facility] (04/08/2025 3:27 PM EDT) Anatomical Region Laterality Modality Ultrasound 04/08/2025 3:10 PM EDT Narrative 04/09/2025 12:30 PM EDT PAT NAME: SHIVAM BERNARD MED REC#: [id number] DA: [id number] PAT GEND: F PAT TYPE: O EXAM ALIREZA: [id number] REF PHYS WILBER BHAKTA Comparison Studies The [...] EFW (oz) 14 oz EFW by: Hadlock (JYY-UL-PJ-FL) Extended Cav. septi pel. tr 4.9 mm Truck Loader Overhead Crane 5.2 mm CM 8.0 mm 70% Nicolaides [...] in 3 weeks scheduled Coding ======= Description: 98456-16 Follow Up Ultrasound Description: 35072-20 BPP without NST Description: 56106-78 Doppler Umbilical Artery Sleeve Tailor: Josephine Gonzales RDMS Physician: Jessica Alejandra MD, FACOG Electronically signed by: Jessica Alejandra MD, FACOG at: 12:30 Procedure Note Jessica Alejandra MD - 04/09/2025 PAT NAME: SHIVAM BERNARD MED REC#: [id number] DA: [id number] PAT GEND: F PAT TYPE: O EXAM ALIREZA: [id number] REF PHYS WILBER BHAKTA Comparison Studies The findings of this study are compared to the prior ultrasound studydated 03/25/25 Patient Status Outpatient Indication ======== AMA. CHTN. Follow up IUGR. Abnormal NIPT (high risk triploidy, T13, T18.)Hx preeclampsia & PTD (32 & 35 wk). Morbid obesity BMI 40. Maternal Assessment Dxrdrp257 cm Height (ft)5 ft Height (in)3 in Etbjzc102 kg Weight (lb)227 lb BMI40.22 kg/m Method ======= Transabdominal ultrasound examination. View: Adequate view ========= Black . Number of fetuses: 1 Dating ====== Method of dating:based on stated ARIA GA by prior [id number] w + 6 d ARIA by prior [...] Hadlock Femur59.6 mm 31w 0d 5% Hadlock Occvkvk03.1 mm 30w 6d 13% Bella HC / AC1.05 EFW1,758 g 31w 0d 9% Hadlock EFW (lb)3 lb EFW (oz)14 oz EFW by:Hadlock (WVH-XG-YK-FL) Extended Cav. septi pel. tr4.9 mm Vp5.2 mm CM8.0 mm 70% Nicolaides Head / Face / Neck Cephalic index0.82 66% Nicolaides Extremities / Bony Struc FL / BPD0.74 FL / HC0.21 FL / AC0.22 Other Structures TDP556 bpm General Evaluation Cardiac activity present. FHR [...] growth in 3 weeks scheduled Coding ======= Description:42954-13 Follow Up Ultrasound Description:24988-81 BPP without NST Description:05936-78 Doppler Umbilical Artery Sleeve Tailor: Josephine Gonzales RDMS Physician: Jessica Alejandra MD, FACOG Electronically signed by: Jessica Alejandra MD, FACOG at: 2312:30 Dominick Bentley MD G US ORDERABLES Final Result documented in this encounter Visit Diagnoses Diagnosis Abnormal genetic test during Chronic hypertension affecting documented in this encounter Care Teams Carburizing Furnace Operator Relationship Specialty Start Date End Date Provider, [place] [address] PCP - General 01/04/24 documented as of this encounter
--- OUTSIDE RECORDS SUMMARY | 2025-04-08 14:45 | XMS_ITS | Encounter Summary ---
[facility] Organization [facility] Address [address] [place] [address] Care Team Providers Care Holter Technician Name Role Phone Provider, No Known Primary Care Provider [phone] Reason for Visit * Reason Comments CHTN, AMA, abn NIPT, MO, hx PreE, IUGR Encounter Details Date Type Department Care Team (Late st Contact Info) Description 04/08/2025 2:45 PM EDT Office Visit [facility] MATERNAL MEDICINE [address] [address] Jessica Alejandra MD [address] [phone] Chronic hypertension affecting (Primary Dx); Antepartum multigravida [...] CVS. Jessica Alejandra MD FACOG Maternal Medicine, [facility] 04/08/2025 documented in this encounter Plan of Treatment Not on file documented as of this encounter Visit Diagnoses Diagnosis Chronic hypertension affecting - Primary Antepartum multigravida of advanced maternal age Abnormal genetic test during Poor growth affecting management of mother in third trimester, single or unspecified fetus documented in this encounter Care Teams Holter Technician Relationship Specialty Start Date End Date Provider, [place] [address] PCP - General 01/04/24 documented as of this encounter
--- OUTSIDE RECORDS SUMMARY | 2025-04-30 15:18 | XMS_ITS | Encounter Summary ---
[facility] Organization [facility] Address [address] [place] [address] Care Team Providers Care Tire Debeader Name Role Phone Provider, No Known Primary Care Provider [phone] Reason for Visit * Diagnostic Imaging (Routine) - Canceled Specialty Diagnoses / Procedures Referred By Contac t Referred To Contact Radiology Diagnoses Chronic hypertension affecting Antepartum multigravida of advanced maternal age Poor growth affecting management of mother in third trimester, single or unspecified fetus Procedures US [facility] Bentley, Dominick Silva MD [address] [place] [address] Phone: tel: fax: [facility] [address] [place] [address] Phone: tel: Referral ID Status Reason Start Date Expiration Date V isits Requested Visits Authorized [id number] Canceled 03/25/2025 06/24/2026 3 3 Encounter Details Date Type Department Care Team (Latest Contact Info) Description 04/30/2025 3:18 PM EDT - 04/30/2025 11:59 PM EDT Hospital Encounter [facility] [address] [place] [address] Wilber Bender, DO [address] [facility] [address] [id number] Discharge Disposition: Home or Self Care Social [...] Procedure Name Priority Date/Time Associated Diagnosis Comments [facility] Routine 04/30/2025 3:41 PM EDT Chronic hypertension affecting Antepartum multigravida of advanced maternal age Poor growth affecting management of mother in third trimester, single or unspecified fetus documented in this encounter Results * [facility] (04/30/2025 3:41 PM EDT) Anatomical Region Laterality Modality Ultrasound 04/30/2025 3:28 PM EDT Narrative 04/30/2025 3:55 PM EDT PAT NAME: SHIVAM BERNARD REC#: [id number] DA: [id number] PAT GEND: F PAT TYPE: O EXAM ALIREZA: [id number] REF PHYS WILBER BENDER Comparison Studies The [...] EFW (oz) 3 oz EFW by: Hadlock (GCG-TD-PU-FL) Extended Cav. septi pel. tr 5.3 mm Insulator Apprentice 6.3 mm Head / Face / Neck [...] 4-chamber view: Appears normal Heart / Thorax 2-oazawq-vhcydub view: Appears normal Cord insertion: Normal Stomach: [...] Follow-up as clinically indicated. Coding ======= Description: 44589-79 Follow Up Ultrasound Description: 88012-01 BPP without NST Description: 44352-32 Doppler Umbilical Artery Lockstitch Waistline Joiner: RT Minerva Salmon , [facility] Physician: Jessica Alejandra MD, FACOG Electronically signed by: Jessica Alejandra MD, FACOG at: 15:55 Procedure Note Jessica Alejandra MD - 04/30/2025 PAT NAME: SHIVAM BERNARD MED REC#: [id number] DA: [id number] PAT GEND: F PAT TYPE: O EXAM ALIREZA: [id number] REF PHYS WILBER BENDER Comparison Studies The findings of this study are compared to the prior ultrasound studydated 04/08/25 Patient Status Outpatient Indication ======== AMA. CHTN. Follow up IUGR. Abnormal NIPT (high risk triploidy, T13, T18.)Hx preeclampsia & PTD (32 & 35 wk). Morbid obesity BMI 41. Maternal Assessment Iabpkq888 cm Height (ft)5 ft Height (in)3 in Ondxpr111 kg Weight (lb)232 lb BMI41.11 kg/m Method ======= Transabdominal ultrasound examination. View: Suboptimal view: limited bylate gestational age ========= Black . Number of fetuses: 1 Dating ====== Method of dating:based on stated ARIA GA by prior zbhejasinq76 w + 0 d ARIA by prior assessment:05/28/2025 Ultrasound examination on:04/30/2025 GA by U/S based upon:AC, BPD, Femur, HC GA by U/S34 w + 1 d ARIA by U/S:06/10/2025 Previous dating:based on stated ARIA, selected on 04/08/2025 Agreed ARIA of previous datin05/28/2025 Assigned:based on stated ARIA, selected on 04/30/2025 Assigned GA36 w + 0 d Assigned ARIA:05/28/2025 ceuoeh669 d Biometry Standard BPD84.9 mm 34w 1d 13% Hadlock QIX442.1 mm 34w 4d 18% Bella HC303.8 mm 33w 5d <1% Hadlock AC301.8 mm 34w 1d 12% Hadlock Femur66.7 mm 34w 2d 10% Hadlock Hnpuvuj81.3 mm 34w 3d 29% Bella HC / AC1.01 EFW2,363 g 34w 0d 11% Hadlock EFW (lb)5 lb EFW (oz)3 oz EFW by:Hadlock (ZXN-YB-KA-FL) Extended Cav. septi pel. tr5.3 mm Vp6.3 mm Head / Face / Neck Cephalic index0.81 44% Nicolaides Extremities / Bony Struc FL / BPD0.79 FL / HC0.22 FL / AC0.22 Other Structures WNJ710 bpm General Evaluation Cardiac activity present. FHR [...] Lips:Normal 4-chamber view:Appears normal Heart / Thorax 5-uompal-dicnkvf view:Appears normal Cord insertion:Normal Stomach:Appears normal Kidneys:Appears [...] Recommendation Follow-up as clinically indicated. Coding ======= Description:44051-93 Follow Up Ultrasound Description:50013-87 BPP without NST Description:35572-73 Doppler Umbilical Artery Lockstitch Waistline Joiner: RT Minerva Salmon , [facility] Physician: Jessica Alejandra MD, FACOG Electronically signed by: Jessica Alejandra MD, FACOG at: /1315:55 us Dominick Bentley MD IMG US ORDERABLES Final Result documented in this encounter Visit Diagnoses Not on filedocumented in this encounter Care Teams Tire Debeader Relationship Specialty Start Date End Date Provider, [place] [address] PCP - General 01/04/24 documented as of this encounter
--- OUTSIDE RECORDS SUMMARY | 2025-04-30 15:30 | XMS_ITS | Encounter Summary ---
[facility] Address [address] [place] [address] Care Team Providers Care Window Trimmer Apprentice Name Role Phone Provider, No Known Primary Care Provider [phone] Reason for Visit * Reason Comments AMA; MO; CHTN; abnormal NIPT; hx preecla mpsia; IUGR Encounter Details Date Type Department Care Team (Late st Contact Info) Description 04/30/2025 3:30 PM EDT Office Visit [facility] MATERNAL MEDICINE [address] [address] Jessica Alejandra MD [address] [place] [phone] Chronic hypertension affecting (Primary Dx) Social History [...] [facility] Jessica Alejandra MD FACOG Maternal Medicine, [facility] 04/30/2025 documented in this encounter Plan of Treatment Not on file documented as of this encounter Visit Diagnoses Diagnosis Chronic hypertension affecting - Primary documented in this encounter Care Teams Window Trimmer Apprentice Relationship Specialty Start Date End Date Provider, [place] [address] PCP - General 01/04/24 documented as of this encounter
[2025-05-07 09:56] VITALS: BMI 39.8
--- NOTE | 2025-05-07 10:03 | US_ITS ---
PROCEDURE: US OB BIOPHYSICAL PROFILE CLINICAL INDICATION: hypertension COMPARISON: US US OB <= 14 WEEKS FETUS from 10/31/2024 US US OB BIOPHYSICAL PROFILE from 04/01/2025 US US OB BIOPHYSICAL PROFILE from 04/15/2025 US US OB BIOPHYSICAL PROFILE from 04/25/2025 US US OB BIOPHYSICAL PROFILE from 05/02/2025 FINDINGS: Transabdominal sonographic images of the uterus were obtained. From her established due date she is 37weeks. The following parameters are obtained: Viable Fetus in the cephalic presentation with a posterolateral placenta grade 2. The cervix measures 2.75 cm in length. Measurements: heart Rate = 144bpm Amniotic fluid index: 9.56cm, MVP 4.10 cm. Qualitative AFV:2 Breathing movements: 2 Gross Body Movements: 2 Tone: 2 Biophysical profile score: 8 No obvious anomalies evident.Kidneys, bladder, three-vessel cord appear normal. IMPRESSION: 1. Viable fetus in the cephalic presentation with a posterolateral placenta grade 2. 2. The fluid is within normal limits with an amniotic fluid index 9.56 cm, MVP 4.10 cm. 3. Biophysical profile is 8/8 with good breathing movement and movement seen. 4. Limited anatomical scan appears normal. Dictated by: Juan F Mcallister MD 05/07/2025 16:36 Juan F Mcallister MD in OV 05/07/2025 16:36
--- NOTE | 2025-05-07 10:04 | HMH.PHAINT1 ---
Pharmacy Intervention Comments: MEDICATION RECONCILIATION COMPLETED ON PATIENT USING EXTERNAL FILL HISTORY FROM PHARMACY. -FRANNY DICKSON, QUENTIND
--- OUTSIDE RECORDS SUMMARY | 2025-05-07 10:09 | XMS_ITS | Encounter Summary ---
Author Organization [employer] ([place], [place], [place], [place]) Address [address] [place] [address] Care Team Providers Care Medical Staff Physician Name Role Phone Unavailable Primary Care Provider Unavailabl e Encounter Details Date Type Department Care Team (Late st Contact Info) Description 10/11/2018 Transcribed Document [facility] Family Medicine [facility] [place] [address] ProviderChula MD [address], [...] - Chula ProviderMD - 10/11/2018 8:13 AM HAND SPRING REPAIRER HELPER [place] Main OR PostOp Summary Primary Physician: JUANY PRICE MD Finalized Date/Time: 10/11/18 13:49:18 Pt. Name: SHIVAM BERNARDO.B./Sex: 1985 Female Med Rec #: [id number] Physician: JUANY PRICE MD Financial #: [id number] Pt. Type: O Room/Bed: [facility] Admit/Disch: 10/11/18 04:54:00 - Institution: [facility] Main OR PostOp Case Times Entry 1 In PACU II 10/11/18 11:36:00 Ready for PACU II 10/11/18 13:44:00 Discharge Discharge from PACU 10/11/18 13:44:00 II Last Modified By: Elba Ram Rn 10/11/18 13:49:17 [facility] Main OR PostOp Case Times Audit 10/11/18 13:49:17 Food And Beverage Intern: STEPH Modifier: STEPH <+> 1 Ready for PACU II Discharge <+> 1 Discharge from PACU II Finalized By: Elba Ram, Rn Document Signatures Signed By: Elba Ram Rn 10/11/18 13:49 Electronically signed by [facility] Conversion Baseball Umpire For Little League Cerner at 01/06/2023 5:02 PM CDT documented in this encounter Plan of Treatment Not on file documented as of this encounter Visit Diagnoses Not on filedocumented in this encounter
--- OUTSIDE RECORDS SUMMARY | 2025-05-07 10:10 | XMS_ITS | Encounter Summary ---
Author Organization [employer] ([place], [place], [place], [place]) Address [address] [place] [address] Care Team Providers Care Service Delivery Director Name Role Phone Unavailable Primary Care Provider Unavailabl e Encounter Details Date Type Department Care Team (Late st Contact Info) Description 10/11/2018 Transcribed Document [facility] [place] [address] ProviderChula MD [address] [place] [address] Social History Tobacco Use Types [...] - Historical ProviderMD - 10/11/2018 6:12 AM PHARMACEUTICAL REPRESENTATIVE Pediatric Growth Entered On: 10/11/2018 6:12 EST Performed On: 10/11/2018 6:12 EST by Michelle Le Patient Consulting Nurse Height and Weight, Clinical Dosing Height Source : Stated Height Entry Format : [place] Height, Feet : 5 ft(Converted to: 152 cm, 60 Inch) Height, Inches : 4 Inch(Converted to: 0 ft 4 Inch, 10.16 cm) Clinical Height : 162.56 cm Weight Source : Standing scale Weight Entry Format : [place] Clinical Dosing Weight : 87.73 kg Weight, Pounds : 193 lb Body Surface Area (BSA) : 1.93 m2 Body Mass Index : 33.2 kg/m2 (HI) [place] Body Weight : 54 kg Michelle Le Patient Consulting Nurse - 10/11/2018 6:12 EST Electronically signed by [facility] Conversion Java Software Engineer Cerner at 01/06/2023 5:04 PM CDT documented in this encounter Plan of Treatment Not on file documented as of this encounter Visit Diagnoses Not on filedocumented in this encounter
--- OUTSIDE RECORDS SUMMARY | 2025-05-07 10:11 | XMS_ITS | Encounter Summary ---
Author Organization [employer] ([place], [place], [place], [place]) Address [address] [place] [address] Care Team Providers Care Or Manager Name Role Phone Unavailable Primary Care Provider Unavailabl e Encounter Details Date Type Department Care Team (Late st Contact Info) Description 10/11/2018 Transcribed Document [facility] Family Medicine [facility] [place] [address] ProviderChula MD [address] [place] [address] Social History Tobacco Use Types [...] - Chula ProviderMD - 10/11/2018 9:28 AM GREASE PACKER DATE OF PROCEDURE: 10/11/2018 ORTHOPEDIC OPERATIVE NOTE PREOPERATIVE DIAGNOSIS(ES): Right L5-S1 herniated nucleus pulposus. POSTOPERATIVE DIAGNOSIS(ES): Right L5-S1 herniated nucleus pulposus. PROCEDURE: Right L5-S1 microdiscectomy, CPT code-05796. SURGEON: Chase Recinos MD COMPRESSOR OPERATOR ADJUSTER: Benjy. COMPLICATIONS: None. SPECIMENS: None. IMPLANTS: None. ESTIMATED BLOOD LOSS: 25 mL. DESCRIPTION OF PROCEDURE: Patient was identified in the holding area at [facility], transferred to the operative room under [...]
--- OUTSIDE RECORDS SUMMARY | 2025-05-07 10:11 | XMS_ITS | Encounter Summary ---
Author Organization [employer] ([place], [place], [place], [place]) Address [address] [place] [address] Care Team Providers Care Director Of Media Name Role Phone Unavailable Primary Care Provider Unavailabl e Encounter Details Date Type Department Care Team (Late st Contact Info) Description 10/11/2018 Transcribed Document [facility] [place] [facility] [place] [address] ProviderChula MD [address] [place] [place], [place] [id number] Social History Tobacco Use Types Packs/Day Years [...] - Historical ProviderMD - 10/11/2018 7:35 AM FLOOR TRADER Event Note Entered On: 10/11/2018 7:37 EST [...]
--- OUTSIDE RECORDS SUMMARY | 2025-05-07 10:13 | XMS_ITS | Encounter Summary ---
Author Organization [facility] ([place], [place], [place], [place]) Address [address] [place] [address] Care Team Providers Care Timber Cruiser Name Role Phone Unavailable Primary Care Provider Unavailabl e Encounter Details Date Type Department Care Team (Late st Contact Info) Description 10/11/2018 Transcribed Document [facility] [place] [facility] [place] [address] ProviderChula MD [address] [place] [address] Social History Tobacco Use Types [...] - Chula ProviderMD - 10/11/2018 8:13 AM DIRECTOR OF REAL ESTATE [place] Main OR IntraOp Summary Primary Physician: JUANY PRICE MD Finalized Date/Time: 10/11/18 09:39:55 Pt. Name: SUNIL BERNARDLONNIE Acevedo /Sex: 1985 Female Med Rec #: [id number] Physician: JUANY PRICE MD Financial #: [id number] Pt. Type: O [facility] Admit/Disch: 10/11/18 04:54:00 - Institution: [facility] IntraOp Case Attendance Entry 1 Entry 2 Entry 3 Case Attendee JUANY PRICE MD BRUNNER, RICHARD V, Chelsey Bran Rn-Surgery Role Performed Surgeon/Proceduralist, IT PROGRAM AUDITOR/Nurse Production Artist Steel Analyst, First First Time In 10/11/18 07:39:00 10/11/18 [...] BRUNER, HAVEN Role Performed Scrub, First Physician facilities maintenance assistant Caseworker Protective Services Time In 10/11/18 07:39:00 10/11/18 07:39:00 10/11/18 07:39:00 Time Out 10/11/18 09:33:00 10/11/18 09:33:00 10/11/18 09:33:00 Procedure Lumbar Microdiscectomy Lumbar Microdiscectomy Lumbar Microdiscectomy Other Attendee Superficial Wound Closed By: Last Modified By: Chelsey Mae Demike, Cynthia Y, Demike, Cynthia Y, Rn-Surgery 10/11/18 Rn-Surgery 10/11/18 Rn-Surgery 10/11/18 09:33:47 09:33:47 09:33:47 Entry 7 Entry 8 Case Attendee FABIAN CRUZ, RN [place] [address] ST Role Performed Steel Analyst, Second Scrub, Second Time In 10/11/18 08:48:00 10/11/18 09:02:00 Time Out 10/11/18 09:02:00 10/11/18 09:33:00 Procedure Lumbar Microdiscectomy Lumbar Microdiscectomy Other Attendee Superficial Wound Closed By: Last Modified By: Chelsey Mae Demike, Cynthia Y, Rn-Surgery 10/11/18 Rn-Surgery 10/11/18 09:33:47 09:33:47 [facility] IntraOp Case Attendance Audit 10/11/18 09:33:47 Maintenance Shop Welder: [id number] Modifier: [id number] 1 <*> Procedure Lumbar Microdiscectomy 2 <+> [...] 8 <*> Procedure Lumbar Microdiscectomy 10/11/18 09:21:03 Maintenance Shop Welder: [id number] Modifier: [id number] 1 <+> Time Out 1 <*> Procedure Lumbar Microdiscectomy 10/11/18 09:04:27 Maintenance Shop Welder: [id number] Modifier: [id number] <+> 1 Procedure 2 <*> Procedure Lumbar Microdiscectomy 3 <*> Procedure Lumbar Microdiscectomy 4 <*> Procedure Lumbar Microdiscectomy 5 <*> Procedure Lumbar Microdiscectomy 6 <*> Procedure Lumbar Microdiscectomy 7 <*> Procedure Lumbar Microdiscectomy 8 <*> Procedure Lumbar Microdiscectomy 10/11/18 09:04:05 Maintenance Shop Welder: [id number] Modifier: [id number] <+> 7 Case Attendee <+> 7 Role Performed <+> 7 Time In <+> 7 Time Out <+> 7 Procedure <+> 8 Case Attendee <+> 8 Role Performed <+> 8 Time In <+> 8 Procedure 10/11/18 08:29:38 Maintenance Shop Welder: [id number] Modifier: [id number] 2 <*> Procedure Lumbar Microdiscectomy 3 <*> Procedure Lumbar Microdiscectomy 4 <*> Procedure Lumbar Microdiscectomy 5 <*> Procedure Lumbar Microdiscectomy 6 <+> Time In 6 <*> Procedure Lumbar Microdiscectomy 10/11/18 08:24:25 Maintenance Shop Welder: [id number] Modifier: [id number] 2 <*> Procedure Lumbar Microdiscectomy 3 <*> Procedure Lumbar Microdiscectomy 4 <*> Procedure Lumbar Microdiscectomy 5 <+> Time In 5 <*> Procedure Lumbar Microdiscectomy <+> 6 Case Attendee <+> 6 Role Performed <+> 6 Procedure 10/11/18 08:13:49 Maintenance Shop Welder: [id number] Modifier: [id number] <+> 1 Time In 2 <+> Time [...] [facility] IntraOp Case Times Audit 10/11/18 09:33:44 Maintenance Shop Welder: [id number] Modifier: [id number] <+> 1 Out Room Time <+> 1 Stop Time 10/11/18 09:33:20 Maintenance Shop Welder: [id number] Modifier: [id number] <+> 1 Stop Time 10/11/18 08:13:56 Maintenance Shop Welder: [id number] Modifier: [id number] <+> 1 Start Time [facility] IntraOp Cautery [...] 08:35:57 SJE IntraOp Cautery Audit 10/11/18 08:35:57 Maintenance Shop Welder: [id number] Modifier: [id number] 1 <*> Grounding Pad Site Right Lower [...] SJE IntraOp Counts Final Audit 10/11/18 09:21:17 Maintenance Shop Welder: [id number] Modifier: [id number] 1 <*> Procedure Lumbar Microdiscectomy 1 <+> [...] Rn-Surgery 10/11/18 08:26:46 S[facility] IntraOp General Case Watershed Program Manager 1 Case Information OR OR 01 [...] Avitene 1Gm powder - Marcaine 0.25% 30ml [id number] vial - [id number] Combo Med List Time Administered Route of [...] Intra Op Sign Out Audit 10/11/18 09:39:50 Maintenance Shop Welder: [id number] Modifier: [id number] <+> 1 RN Sign Out Signature Date/Time <+> 1 Urinary Catheter Documented in Aoms SJE IntraOp Skin Prep Entry 1 Procedure [...] SJE IntraOp Surgical Procedures Audit 10/11/18 09:33:24 Maintenance Shop Welder: [id number] Modifier: [id number] 1 <*> Procedure Lumbar Microdiscectomy 1 <+> Stop 10/11/18 09:21:35 Maintenance Shop Welder: [id number] Modifier: [id number] 1 <*> Procedure Lumbar Microdiscectomy 1 <+> Specialty 10/11/18 09:04:26 Maintenance Shop Welder: [id number] Modifier: [id number] <+> 1 Primary Procedure <+> 1 Primary Surgeon <+> 1 Start <+> 1 Wound Class <+> 1 Anesthesia Type <+> 1 Additional Procedure Description [facility] IntraOp Temp Regulation Devices Entry 1 Temp Regulation Temperature Forced Air Warming Regulation Device device Temperature Upper body Regulation Site Temperature Device 43 Setting Temperature CARLTON HARKINS V IT PROGRAM AUDITOR Regulation Device Applied by Last Modified By: [...] SJE IntraOp Time Out Audit 10/11/18 08:33:51 Maintenance Shop Welder: [id number] Modifier: [id number] 1 <+> Beta Thalia Administered 1 <+> [...] Rn-Surgery 10/11/18 09:39 Electronically signed by Hanane [facility] Conversion Senior Linux Unix Engineer Cerner at 01/06/2023 4:42 PM CDT documented in this encounter Plan of Treatment Not on file documented as of this encounter Visit Diagnoses Not on filedocumented in this encounter
--- OUTSIDE RECORDS SUMMARY | 2025-05-07 10:13 | XMS_ITS | Encounter Summary ---
Author Organization [employer] ([place], [place], [place], [place]) Address [address] [place] [address] Care Team Providers Care Ethanol Operator Name Role Phone Unavailable Primary Care Provider Unavailabl e Encounter Details Date Type Department Care Team (Late st Contact Info) Description 10/11/2018 Transcribed Document [facility] [place] [facility] [address] ProviderChula MD [address] [place] [address] Social History Tobacco Use Types [...] - Historical ProviderMD - 10/11/2018 8:12 AM EXECUTIVE RECEPTIONIST Peripheral Nerve Block Entered On: 10/11/2018 8:13 [...] - 10/11/2018 8:12 EST Electronically signed by [facility] Conversion Production Inspector Cerner at 01/06/2023 4:48 PM CDT documented in this encounter Plan of Treatment Not on file documented as of this encounter Visit Diagnoses Not on filedocumented in this encounter
--- OUTSIDE RECORDS SUMMARY | 2025-05-07 10:14 | XMS_ITS | Encounter Summary ---
Author Organization [facility] Address [address] [place] [address] Care Team Providers Care Precision Agriculture Technician Name Role Phone Provider, No Known Primary Care Provider [phone] Encounter Details Date Type Department Care Team [...] on filedocumented in this encounter Care Teams Precision Agriculture Technician Relationship Specialty Start Date End Date Provider, [place] [address] PCP - General 01/04/24 documented as of this encounter
--- OUTSIDE RECORDS SUMMARY | 2025-05-07 10:14 | XMS_ITS | Encounter Summary ---
Author Organization [employer] ([place], [place], [place], [place]) Address [address] [place] [address] Care Team Providers Care Load Checker Name Role Phone Unavailable Primary Care Provider Unavailabl e Encounter Details Date Type Department Care Team (Late st Contact Info) Description 09/27/2018 Transcribed Document [facility] Family Medicine [facility] [place] [address] ProviderChula MD [address] [place] [address] Social History Tobacco Use Types [...] - Chula ProviderMD - 09/27/2018 10:30 AM CONVEYOR BELT INSTALLER Patient: SHIVAM BERNARD Age: 33 Years Sex: [...]
--- OUTSIDE RECORDS SUMMARY | 2025-05-07 10:14 | XMS_ITS | Encounter Summary ---
Author Organization [employer] ([place], [place], [place], [place]) Address [address] [place] [address] Care Team Providers Care Bead Wrapper Name Role Phone Unavailable Primary Care Provider Unavailabl e Encounter Details Date Type Department Care Team (Late st Contact Info) Description 10/11/2018 Transcribed Document [facility] [place] [facility] [place] [address] ProviderChula MD [address] [place] [address] Social History Tobacco Use Types [...] - Historical ProviderMD - 10/11/2018 7:31 AM FAMILY SUPPORT COORDINATOR Event Note Entered On: 10/11/2018 7:33 EST [...]
--- OUTSIDE RECORDS SUMMARY | 2025-05-07 10:14 | XMS_ITS | Encounter Summary ---
Author Organization [employer] ([place], [place], [place], [place]) Address [address] [place] [address] Care Team Providers Care Tinware Lithograph Press Operator Name Role Phone Unavailable Primary Care Provider Unavailabl e Encounter Details Date Type Department Care Team (Late st Contact Info) Description 09/27/2018 Transcribed Document [facility] [place] [facility] [place] [address] ProviderChula MD [address] [place] [address] Social History Tobacco Use Types [...] - Chula ProviderMD - 09/27/2018 10:11 AM SOUND ASSISTANT PAT Adult Entered On: 09/27/2018 10:15 EST [...] Source : Stated Height Entry Format : [place] Height, Feet : 5 ft(Converted to: 152 cm, 60 Inch) Height, Inches : 4 Inch(Converted to: 0 ft 4 Inch, 10.16 cm) Clinical Height : 162.56 cm Weight Source : Standing scale Weight Entry Format : [place] Clinical Dosing Weight : 88.18 kg Weight, Pounds : 194 lb Body Surface Area (BSA) : 1.93 m2 Body Mass Index : 33.4 kg/m2 (HI) [place] Body Weight : 54 kg Veronica Marin [...] Obtained From : Patient Primary Language : Kyrgyz Preferred Communication Mode : Verbal Communication Barrier [...]
--- OUTSIDE RECORDS SUMMARY | 2025-05-07 10:14 | XMS_ITS | Clinical Summary ---
Author Organization [facility] Address [address] [place] [address] Care Team Providers Care Building Insulation Supervisor Name Role Phone Provider, No Known Primary Care Provider [phone] Allergies No known active allergies Medications amLODIPine [...] given her abnormal NIPT this could be practice representative of that testing. As of note [...] that CMV testing was performed with primary PLUSH FINISHER and she said that the IgM was positive and that the antibody was high though we do not have records of this. This could be indicative of IgM with high avidity which could be practice representative of new infection though patient states [...] [facility] [address] [address] Jessica Alejandra MD Chronic hypertension affecting (Primary Dx) 04/30/2025 3:18 PM EDT - 04/30/2025 11:59 PM EDT Hospital Encounter [facility] US [facility] [address] [place] [address] Wilber Bender DO Discharge Disposition: Home or Self Care 04/30/2025 Travel 04/08/2025 2:45 PM EDT Office Visit [facility] [address] [address] Jessica Alejandra MD Chronic hypertension affecting (Primary Dx); Antepartum multigravida of advanced maternal age; Abnormal genetic test during ; Poor growth affecting management of mother in third trimester, single or unspecified fetus 04/08/2025 2:33 PM EDT - 04/08/2025 11:59 PM EDT Hospital Encounter [facility] [address] [place] [address] Dominick Bentley MD Abnormal genetic test during ; Chronic hypertension affecting Discharge Disposition: Home or Self Care 04/08/2025 Travel 03/25/2025 3:00 PM EDT Office Visit [facility] [address] [phone] Dominick Bentley MD Poor growth affecting management of mother in third trimester, single or unspecified fetus (Primary Dx); Chronic hypertension affecting ; Antepartum multigravida of advanced maternal age; Abnormal genetic test during 03/25/2025 3:00 PM EDT - 03/25/2025 11:59 PM EDT Hospital Encounter [facility] [address] [place] [address] Wilber Bender DO Discharge Disposition: Home or Self Care 03/25/2025 Travel 02/25/2025 2:15 PM EDT Office Visit [facility] [address] [phone] Jessica Alejandra MD Antepartum multigravida of advanced maternal age (Primary Dx); Chronic hypertension affecting 02/25/2025 2:00 PM EDT - 02/25/2025 11:59 PM EDT Hospital Encounter [facility] [address] [place] [address] Wilber Bender DO Discharge Disposition: Home or [...] Procedure Name Priority Date/Time Associated Diagnosis Comments [facility] Routine 04/30/2025 3:41 PM EDT Chronic hypertension affecting Antepartum multigravida of advanced maternal age Poor growth affecting management of mother in third trimester, single or unspecified fetus [facility] Routine 04/08/2025 3:27 PM EDT Abnormal genetic test during Chronic hypertension affecting [facility] Routine 03/25/2025 3:56 PM EDT Abnormal genetic test during Chronic hypertension affecting [facility] Routine 02/25/2025 2:41 PM EDT Abnormal genetic test during Chronic hypertension affecting HEMOGLOBIN A1C Routine 01/08/2024 8:54 AM EDT Blighted ovum from Last 3 Months or Most Recently Relevant to Health Maintenance Results * [facility] (04/30/2025 3:41 PM EDT) Only the most recent of4 resultswithin the time period is included. Anatomical Region Laterality Modality Ultrasound 04/30/2025 3:28 PM EDT Narrative 04/30/2025 3:55 PM EDT PAT NAME: SHIVAM BERNARD MED REC#: [id number] DA: [id number] PAT GEND: F PAT TYPE: O EXAM ALIREZA: [id number] REF PHYS WILBER BENDER Comparison Studies The [...] EFW (oz) 3 oz EFW by: Hadlock ([id number]) Extended Cav. septi pel. tr 5.3 mm Metalworking Instructor 6.3 mm Head / Face / Neck [...] 4-chamber view: Appears normal Heart / Thorax 3-ulumkn-nzagemi view: Appears normal Cord insertion: Normal Stomach: [...] Follow-up as clinically indicated. Coding ======= Description: 17672-31 Follow Up Ultrasound Description: 84393-53 BPP without NST Description: 63809-55 Doppler Umbilical Artery Relationship Advisor: RT Minerva Salmon , [facility] Physician: Jessica Alejandra MD, FACOG Electronically signed by: Jessica Alejandra MD, FACOG at: 15:55 Procedure Note Jessica Alejandra MD - 04/30/2025 PAT NAME: SHIVAM BERNARD MED REC#: [id number] DA: [id number] PAT GEND: F PAT TYPE: O EXAM ALIREZA: [id number] REF PHYS WILBER BENDER Comparison Studies The findings of this study are compared to the prior ultrasound studydated 04/08/25 Patient Status Outpatient Indication ======== AMA. CHTN. Follow up IUGR. Abnormal NIPT (high risk triploidy, T13, T18.)Hx preeclampsia & PTD (32 & 35 wk). Morbid obesity BMI 41. Maternal Assessment [id number] cm Height (ft)5 ft Height (in)3 in Jljkoo829 kg Weight (lb)232 lb BMI41.11 kg/m Method ======= Transabdominal ultrasound examination. View: Suboptimal view: limited bylate gestational age ========= Black . Number of fetuses: 1 Dating ====== Method of dating:based on stated ARIA GA by prior eyvplterte27 w + 0 d ARIA by prior assessment:05/28/2025 Ultrasound examination on:04/30/2025 GA by U/S based upon:AC, BPD, Femur, HC GA by U/S34 w + 1 d ARIA by U/S:06/10/2025 Previous dating:based on stated ARIA, selected on 04/08/2025 Agreed ARIA of previous datin05/28/2025 Assigned:based on stated ARIA, selected on 04/30/2025 Assigned GA36 w + 0 d Assigned ARIA:05/28/2025 [id number] d Biometry Standard BPD84.9 mm 34w 1d 13% Hadlock MBL445.1 mm 34w 4d 18% Bella HC303.8 mm 33w 5d <1% Hadlock AC301.8 mm 34w 1d 12% Hadlock Femur66.7 mm 34w 2d 10% Hadlock Kqlngxw27.3 mm 34w 3d 29% Bella HC / AC1.01 EFW2,363 g 34w 0d 11% Hadlock EFW (lb)5 lb EFW (oz)3 oz EFW by:Hadlock ([id number]) Extended Cav. septi pel. tr5.3 mm Vp6.3 mm Head / Face / Neck Cephalic index0.81 44% Nicolaides Extremities / Bony Struc FL / BPD0.79 FL / HC0.22 FL / AC0.22 Other Structures GAS008 bpm General Evaluation Cardiac activity present. FHR [...] Lips:Normal 4-chamber view:Appears normal Heart / Thorax 1-czltrv-bjzxuvg view:Appears normal Cord insertion:Normal Stomach:Appears normal Kidneys:Appears [...] Recommendation Follow-up as clinically indicated. Coding ======= Description:87374-77 Follow Up Ultrasound Description:43460-99 BPP without NST Description:41027-48 Doppler Umbilical Artery Relationship Advisor: RT Minerva Salmon , [facility] Physician: Jessica Alejandra MD, FACOG [...] 01/09/2024 8:16 AM EDT Performed at: [facility] [place] [place] [id number] Machine Finisher: Kevin Staley MD, Phone: [phone] Patient Fasting: N us Caleb Alves MD LAB BLOOD ORDERABLES Fin al Result [facility] [address] [place] [address], [facility] [address] [place] [address], from Last 3 Months or Most Recently Relevant to Health Maintenance [place] [address] [place] [address] Care Teams Building Insulation Supervisor Relationship Specialty Start Date End Date Provider, [place] [address] PCP - General 01/04/24
--- OUTSIDE RECORDS SUMMARY | 2025-05-07 10:14 | XMS_ITS | Encounter Summary ---
Author Organization [facility] Address [address] [place] [address] Care Team Providers Care Elementary Principal Name Role Phone Provider, No Known Primary Care Provider [phone] Encounter Details Date Type Department Care Team [...] on filedocumented in this encounter Care Teams Elementary Principal Relationship Specialty Start Date End Date Provider, [place] [address] PCP - General 01/04/24 documented as of this encounter
--- OUTSIDE RECORDS SUMMARY | 2025-05-07 10:14 | XMS_ITS | Encounter Summary ---
Author Organization [facility] Address [address] [place] [address] Care Team Providers Care Printer'S Devil Name Role Phone Provider, No Known Primary Care Provider [phone] Encounter Details Date Type Department Care Team [...] on filedocumented in this encounter Care Teams Printer'S Devil Relationship Specialty Start Date End Date Provider, [place] [address] PCP - General 01/04/24 documented as of this encounter
--- OUTSIDE RECORDS SUMMARY | 2025-05-07 10:15 | XMS_ITS | Clinical Summary ---
Author Organization [facility] Address [address] [place] [address] Care Team Providers Care Purchasing Agent Name Role Phone Rosemary Fuller Primary Care [...] Tdap) 09/12/2023 09/12/2013 Colonoscopy 12/29/2023 12/29/2021, 11/13/2019 [id number] Vaccine ( - season) 2024 UKY-Depression Screening [...] RN Endo Nurse Roberto Carlos Davis CRNA AUTOMATION TEST ENGINEER, No role selected Kell Carrera RN Endo Nurse Mady Alvarez Endo Nurse James Morales MD Anesthesiologist MD Daniel Dinero MD Proceduralist Plaque Maker Unknown Endo Nurse 1 Endo Nurse Preprocedure [...] of bowel preparation was evaluated using the [place] Bowel Preparation Scale with scores of: right [...] were documented in this log. Findings Healthy fatk-ud-squt ileocolonic anastomosis with no bleeding The rectum [...] <6.0% Children and Adolescents <7.5% . Source: [place] [employer]. Standards of medical care in [...] Insurance [employer] Care Teams Purchasing Agent Relationship Specialty Start Date End Date Rosemary Fuller PA [address] [place] [address] [place] [address] PCP - General 01/29/21
--- OUTSIDE RECORDS SUMMARY | 2025-05-07 10:15 | XMS_ITS | Referral Summary ---
Author Organization [employer] ([place], [place], [place], [place]) Address [address] [place] [address] Care Team Providers Care Biomass Plant Manager Name Role Phone Unavailable Primary Care [...]
--- OUTSIDE RECORDS SUMMARY | 2025-05-07 10:15 | XMS_ITS | Clinical Summary ---
Author Organization [employer] ([place], [place], [place], [place]) Address [address] [place] [address] Care Team Providers Care Managing Manager Name Role Phone Unavailable Primary Care [...]
[2025-05-07 12:02] LABS: Hematocrit 29.0 % (37.0-47.0); Hemoglobin 9.1 g/dL (12.2-16.2); Immature Granulocytes % 0.6 %; Mean Corpuscular HGB Conc 31.4 g/dL (31.8-35.4); Mean Corpuscular Hemoglobin 24.8 pg (27.0-31.2); Mean Corpuscular Volume 79.0 fl (81-99); Nucleated Red Blood Cells % 0.2 %; Platelet Count 306 K/mm3 (142-424); Red Blood Count 3.67 M/mm3 (4.20-5.40); Red Cell Distribution Width-SD 42.3 fL; White Blood Count 11.8 K/mm3 (4.8-10.8)
[2025-05-07 12:07] LABS: Anion Gap 10.9 mEq/L (5-15); Blood Urea Nitrogen 7 mg/dl (7-17); Calcium 8.1 mg/dl (8.4-10.2); Carbon Dioxide 20 mmol/L (22.0-30.0); Chloride 109 mmol/L (98-107); Creatinine Clearance Estimated 251 mL/min (50-200); Creatinine,Serum 0.50 mg/dl (0.52-1.04); Estimated Glomerular Filt Rate 137 ml/min (>60); GFR (African American) 166 ML/MIN (>60); Glucose 81 mg/dl (74-100); Potassium 3.9 mmoL/L (3.5-5.1); Sodium 136 mmol/L (136-145)
[2025-05-07 12:18] VITALS: BMI 39.8
[2025-05-07 12:24] LABS: Activated Partial Thrombo Time 24.4 seconds (22.8-30.6); Fibrinogen 373 mg/dL (229.9-363.5); INR 0.91 (0.9-1.1); Prothrombin Time 10.2 seconds (10.1-12.5)
[2025-05-07 12:36] LABS: D-Dimer 1.20 ug/mL (0.0-0.5)
[2025-05-07 12:47] LABS: Uric Acid 4.3 mg/dl (2.5-6.2)
[2025-05-07] MEDS: LABETALOL 100MG TABLET 200 MG PO ×2 (16:01→20:56)
[2025-05-07 19:35] VITALS: BP 163/70; PULSE 74
[2025-05-07 20:10] VITALS: BP 169/79
[2025-05-07] MEDS: LABETALOL 5MG/ML 20ML MDV 20 MG IV (20:10)
[2025-05-07 20:40] VITALS: BP 159/77; PULSE 72
[2025-05-07] MEDS: PANTOPRAZOLE 40MG TABLET 40 MG PO (20:57)
[2025-05-07] MEDS: SERTRALINE 50MG TABLET 50 MG PO (20:57)
[2025-05-07 21:08] LABS: Albumin Level 3.3 g/dl (3.5-5.0); Chloride 112 mmol/L (98-107); Potassium 3.9 mmoL/L (3.5-5.1); Sodium 136 mmol/L (136-145)
[2025-05-07 21:10] LABS: Blood Urea Nitrogen 8 mg/dl (7-17); Creatinine Clearance Estimated 251 mL/min (50-200); Creatinine,Serum 0.50 mg/dl (0.52-1.04); Estimated Glomerular Filt Rate 137 ml/min (>60); GFR (African American) 166 ML/MIN (>60)
[2025-05-07 21:11] LABS: Alanine Aminotransferase 14 U/L (12-78); Albumin/Globulin Ratio 1.1 (1.1-1.8); Alkaline Phosphatase 168 U/L (38-126); Anion Gap 9.9 mEq/L (5-15); Aspartate Amino Transferase 28 U/L (14-36); Bilirubin,Total 0.2 mg/dl (0.2-1.3); Calcium 8.1 mg/dl (8.4-10.2); Carbon Dioxide 18 mmol/L (22.0-30.0); Globulin 2.9 g/dL (1.3-3.2); Glucose 80 mg/dl (74-100); Total Protein,Serum 6.2 g/dl (6.3-8.2)
[2025-05-07 22:40] VITALS: BP 157/74; PULSE 71
--- NOTE | 2025-05-07 22:42 | EXP.HP ---
History of Present Illness *Admission Date: 05/07/25 *Reason for visit:: induction *History of present illness: Kala Beltran is a pleasant 39-year-old -0-5-2 who presented to my office yesterday with elevated blood pressure and a nonreactive NST she was sent to labor and delivery for evaluation. Overnight she had blood pressure elevations and magnesium was started along with her induction. Yesterday on admission she was 37 weeks and 0 days gestation. She has an ARIA of 05/28/2025 based on last menstrual period consistent with first trimester ultrasound. On presentation she endorsed good movement, denied any leakage of fluid or vaginal bleeding. She has had 2 previous spontaneous vaginal deliveries. This has been complicated by advanced maternal age, obesity, chronic hypertension, and iron deficiency anemia. She has a hx of of preeclampsia and PTD. She had IUGR with this but it has since resolved, see ultrasound below. Her NIPT was inconclusive and of MFM referral was placed her anatomy scan has been within normal limits. Her chronic hypertension has been managed with aspirin 162 mg daily as well as labetalol 200 mg 3 times a day she has had testing. Her BMI was 37 and she had testing for this as well. She has not developed any proteinuria and has remained asymptomatic without any headaches, vision changes, right upper quadrant pain. She has been receiving IV iron infusions to improve her iron deficiency anemia [facility] ultrasound on 04/30/2025 showed an infant with an EFW of 2363 g, 5 pounds 3 ounces, 11th percentile. BPD: 13%, HC: Less than 1%, AC: 12%, FL: 10%. HC/AC ratio: 1.01. MVP: 6.3 cm. O+, antibody negative, rubella and varicella immune, hepatitis B negative, hepatitis C negative, RPR negative, HIV negative 1 hour GTT: 108 GBS negative PFSH PFS Disclaimer: The information contained in this section may have been updated after the patient was seen, as this information can be updated by other users. Medical History Kidney stone Anxiety Depression History of gastroesophageal reflux (GERD) Hypertension Surgical History History of back surgery History of colonoscopy History of colon resection Family History Sister Thyroid cancer Grandmother Family history of diabetes mellitus type II Social History (Updated 05/07/25 @ 14:03 by Ashia Rodas RN) Smoking Status: Never smoker alcohol intake: never substance use type: denies use current occupational status: other Travel in the last 8 weeks?: None Have you lived/traveled outside US in past 30 days?: No Contact w/someone who lives/traveled outside US past 30 days?: No Exposure to someone with infectious disease in past 14 days?: No Do you have a fever (greater than 100.4 F or 38 C)?: No Have you tested positive for COVID-19?: No Exposed to someone with COVID-19 in past 14 days?: No Do you have a sore throat?: No Do you have a cough?: No Do you have any weakness?: No Do you have any diarrhea?: No Are you experiencing any unusual bleeding?: No Do you have any muscle aches/pain?: No Do you have any abdominal pain?: No Are you experiencing loss of taste or smell?: No Other Medical History Have you received the Flu Vaccine for this season: Yes Have you received the Pneumonia Vaccine: No Review of Systems Review of Systems Review of systems (narrative): Review of Systems Constitutional: Denies fever, chills, and sweats Eyes: Denies vision change/ pain Respiratory: Denies cough and shortness of breath Cardiovascular: Denies chest pain and lightheadedness Gastrointestinal: Denies abdominal pain on admission. Denies nausea, vomiting. Genitourinary: Denies dysuria and incontinence Musculoskeletal: Denies shoulder pain and back pain Neurological: Denies change in speech or headaches Meds Home Medications and Allergies Home Medications ?Medication ?Instructions ?Recorded ?Confirmed ?Type famotidine 40 mg tablet 40 mg PO DAILY 01/18/24 05/07/25 History hydroxyzine HCl 10 mg tablet 10 mg PO QIDP PRN Anxiety 01/18/24 05/07/25 History omeprazole 20 mg capsule,delayed 20 mg PO DAILY 01/18/24 05/07/25 History release sertraline 50 mg tablet 50 mg PO DAILY 01/18/24 05/07/25 History aspirin 81 mg tablet,delayed 81 mg PO BID 05/07/25 05/07/25 History release labetalol 200 mg tablet 200 mg PO BID 05/07/25 05/07/25 History New Prescriptions to Start Prescriptions: Allergies Allergy/AdvReac Type Severity Reaction Status Date / Time No Known Allergies Allergy Verified 05/07/25 09:33 Exam Data for Last 24 hours Vital signs and Labs for Last 24 Hours: BP 159/77 H 05/07/25 20:40 Laboratory Results - last 24 hr 05/07/25 11:45: WBC 11.8 H, RBC 3.67 L, Hgb 9.1 L, Hct 29.0 L, MCV 79.0 L, MCH 24.8 L, MCHC 31.4 L, RDW 16.3, Plt Count 306, MPV 10.7 H, Neut % (Auto) 72.2, Lymph % (Auto) 18.8, Caldwell % (Auto) 7.3, Eos % (Auto) 0.8, Baso % (Auto) 0.3, Neut # (Auto) 8.5 H, Lymph # (Auto) 2.2, Caldwell # (Auto) 0.9, Eos # (Auto) 0.1, Baso # (Auto) 0.0, PT 10.2, INR 0.91, APTT 24.4, Fibrinogen 373 H, D-Dimer 1.20 H, Sodium 136 05/07/25 11:45: Sodium 136, Potassium 3.9 05/07/25 11:45: Potassium 3.9, Chloride 109 H 05/07/25 11:45: Chloride 112 H, Carbon Dioxide 20 L 05/07/25 11:45: Carbon Dioxide 18 L, Anion Gap 10.9 05/07/25 11:45: Anion Gap 9.9, BUN 7 05/07/25 11:45: BUN 8, Creatinine 0.50 L 05/07/25 11:45: Creatinine 0.50 L, Estimated Creat Clear 251 05/07/25 11:45: Estimated Creat Clear 251, Estimated GFR 137 05/07/25 11:45: Estimated GFR 137, Est GFR ( Amer) 166 05/07/25 11:45: Est GFR ( Amer) 166, Glucose 81 05/07/25 11:45: Glucose 80, Uric Acid 4.3, Calcium 8.1 L 05/07/25 11:45: Calcium 8.1 L, Total Bilirubin 0.2, AST 28, ALT 14, Alkaline Phosphatase 168 H, Lactate Dehydrogenase 197 L, Total Protein 6.2 L, Albumin 3.3 L, Globulin 2.9, Albumin/Globulin Ratio 1.1, Blood Type O Positive, Antibody Screen Negative 05/07/25 12:55: Urine Creatinine 222, Urine Total Protein 11.0 I & O for Last 24 hours: Intake & Output 05/04/25 05/05/25 05/06/25 05/07/25 23:59 23:59 23:59 23:59 Weight 232 lb Narrative: General: patient is alert oriented in no acute distress and responds appropriately to questions. HEENT: NCAT, EOMI, moist mucous membranes, neck supple with full ROM Cardiovascular: RRR +S1/S2, no murmurs or rubs Pulmonary: Clear to auscultation bilaterally, nonlabored breathing, symmetric chest rise Abdominal: Gravid abdomen appropriate for gestation. No guarding, rebound, or tenderness noted. Extremities: trace edema, no tenderness or cyanosis noted Skin: Normal turgor, intact, warm. Negative for erythema, pallor, petechia, or lesions Neurologic: Negative for sensory or motor deficit Psychiatric: Normal affect, normal thought process, good judgment and insight, no depression or anxious mood appreciated. *Routine HEENT Exam Head: Present normocephalic and atraumatic Eye: Present EOMI, PERRL and normal accommodation; Absent conjunctival icterus, scleral injection, nystagmus or exophthalmos ENT: Present mucous membranes moist *Routine Respiratory Exam Respiratory: Present CTA bilaterally, normal respiratory effort, able to speak in complete sentences and symmetric chest movement; Absent accessory muscle use, decreased breath sounds, rales, respiratory distress, wheezes, distant breath sounds or diminished air movement *Routine Cardiovascular Exam Cardiovascular: Present RRR, Normal S1 and Normal S2; Absent murmur or gallop *Routine Abdominal Exam Abdominal: Present soft and normoactive bowel sounds; Absent tenderness, distended, rebound or guarding *Routine Rectal Exam Rectal:: deferred *Routine Genitalia Exam Genitalia:: normal female Assessment and Plan *Assessment and plan (1) Bilateral carpal tunnel syndrome: Status: Acute Category: Medical Code(s): G56.03 - Carpal tunnel syndrome, bilateral upper limbs (2) IUGR (intrauterine growth restriction): Status: Acute Category: Medical (3) Chronic hypertension affecting : Status: Acute Category: Medical Code(s): O10.919 - Unspecified pre-existing hypertension complicating , unspecified trimester (4) Advanced maternal age (AMA) in : Status: Acute Category: Medical (5) Obesity (BMI 30-39.9): Status: Acute Category: Medical Code(s): E66.9 - Obesity, unspecified (6) History of recurrent miscarriages: Status: Acute Category: Medical Code(s): N96 - Recurrent loss (7) Severe preeclampsia: Status: Acute Category: Medical Code(s): O14.10 - Severe pre-eclampsia, unspecified trimester (8) Microcytic anemia: Status: Acute Category: Medical Code(s): D50.9 - Iron deficiency anemia, unspecified (9) Encounter for induction of labor: Status: Acute Category: Medical Code(s): Z34.90 - Encounter for supervision of normal , unspecified, unspecified trimester Plan - Monitor vitals - Admit to L&D for induction of labor - Plan for induction with Pitocin, per protocol - External FHR and TOCO monitor - Exam on admission: /-3 - GBS neg/ Blood type: O+ - Hemoglobin: 9.1, Plt: 306 - Plan for epidural anesthesia - Anticipate vaginal delivery of female infant: Ilya #Anemia -Hemoglobin is 9.1, she is at a high risk for hemorrhage. Will have 2 units on hold for her. Will continue her IV iron infusions . This is a microcytic anemia that was present on admission #Advanced maternal age - NIPT was collected in the first trimester and was inconclusive, it was repeated, eventually she was sent to [facility] and had a normal anatomy scan #obesity - testing was completed throughout - BMI at delivery: 40, complicates all aspects of care #chronic hypertension -IUGR, resolved. see above US - PIH labs are within normal limits and no proteinuria - She had severe range blood pressures overnight and magnesium was started. Magnesium will be continued until 24 hours after delivery - PIH labs will be followed every 24 hours - Continue labetalol - Follow IV labetalol or IV hydralazine protocol, for severe and blood pressure first #hx of of preeclampsia #Hx of PTD
[2025-05-07 23:49] VITALS: BP 140/66; PULSE 68
[2025-05-08] VITALS (26 sets, daily range): BP systolic 105–179; BP diastolic 53–91; PULSE 65–88; RESP 15–18; TEMP 36.7; O2SAT 98–99
[2025-05-08] MEDS: LABETALOL 5MG/ML 20ML MDV 40 MG IV (00:50)
[2025-05-08] MEDS: MAGNESIUM SULFATE IN WATER 4 GM/50 ML PIGGYBACK IV (01:38)
[2025-05-08] MEDS: MAGNESIUM SULFATE IN WATER 20 GM/500 ML IV.SOLN IV ×3 (01:54→22:32)
[2025-05-08] MEDS: LACTATED RINGERS 1000ML 1,000 ML 100 ML IV (01:54)
[2025-05-08] MEDS: DEXTROSE 5%-LACTATED RINGERS 1,000 ML 48 ML IV (04:48)
[2025-05-08] MEDS: OXYTOCIN/RINGERS LACTATE 30 UNITS/500 ML BAG IV (04:48)
[2025-05-08 06:27] LABS: Magnesium 4.2 mg/dl (1.6-2.3)
--- NOTE | 2025-05-08 07:50 | EXP.ANES.CKL ---
[facility] Disclaimer: The information contained in this section may have been updated after the patient was seen, as this information can be updated by other users. Medical History Kidney stone Anxiety Depression History of gastroesophageal reflux (GERD) Hypertension Surgical History History of back surgery History of colonoscopy History of colon resection Family History Sister Thyroid cancer Grandmother Family history of diabetes mellitus type II Social History (Updated 05/07/25 @ 14:03 by Ashia Rodas RN) Smoking Status: Never smoker alcohol intake: never substance use type: denies use current occupational status: other Travel in the last 8 weeks?: None Have you lived/traveled outside US in past 30 days?: No Contact w/someone who lives/traveled outside US past 30 days?: No Exposure to someone with infectious disease in past 14 days?: No Do you have a fever (greater than 100.4 F or 38 C)?: No Have you tested positive for COVID-19?: No Exposed to someone with COVID-19 in past 14 days?: No Do you have a sore throat?: No Do you have a cough?: No Do you have any weakness?: No Do you have any diarrhea?: No Are you experiencing any unusual bleeding?: No Do you have any muscle aches/pain?: No Do you have any abdominal pain?: No Are you experiencing loss of taste or smell?: No [facility] Anesthesia Checklist Patient Identification Patient Identification: Arm Band and Verbal (Name & ) Structural Data Admitted From: Inpatient Planned Operative Procedure/s: Labor epidural Consent for Planned Operative Procedure(s) Verified: Yes Verified Documents: Surgical Consent NPO Status Verified Time NPO: 00:00 Chart Verification Results Verified: CBC Additional verifications Patient : Yes Anesthesia Reactions: Yes Hx Blood Transfusions: No Blood Transfusion Reaction: No Airway Assessment Mallampati Score:: Class II C-Spine Mobility Assessed: No TMJ Mobility Assessed: No Dentition: Good Dentition Neurological Assessment Level of Consciousness: Awake, Alert and Appropriate Hx Seizures: No Numbness or tingling in extremities: No Anesthesia Plan Anesthesia Risk discussed: Yes Anesthesia Plan: Verified ASA Class: III Anesthesia Type: Epidural
[2025-05-08 08:30] LABS: RPR W/RFX Titers Nonreactive (Nonreactive)
[2025-05-08] MEDS: LABETALOL 100MG TABLET 200 MG PO ×3 (09:25→22:32)
[2025-05-08] MEDS: ONDANSETRON 4MG/2ML VIAL 4 MG IV (09:26)
--- NOTE | 2025-05-08 10:20 | SW/DCPLANNER ---
[facility] Resource List has been provided to this patient due to PCS4 responses. CM will continue to follow to assist w/ any needs/new orders.
--- NOTE | 2025-05-08 11:03 | EXP.LABOR.NO ---
Labor Note Subjective: Date: 05/08/25 Time: 11:03 Comment:: Was doing well this morning when I saw her. She had just started become more painful and received an epidural. AROM was completed. Around 11:00 I went back to labor and delivery to place an IUPC secondary to inability to treat contractions. Patient and tolerated both procedures well. Clear fluid was noted with AROM and no complications with IUPC placement Objective: Cervical Dilation:: 6 Effacement:: 80% Station: -2 Membranes: ruptured and artificially ruptured Fetus: Monitoring?: Yes monitoring type:: Internal and External Assessment: Labor progressing?: Yes Cephalopelvic disproportion?: No Plan: Anesthesia for epidural?: Yes Plan for ?: No Continue to monitor?: Yes
[2025-05-08 11:18] LABS: Hematocrit 30.5 % (37.0-47.0); Hemoglobin 9.6 g/dL (12.2-16.2); Immature Granulocytes % 0.6 %; Mean Corpuscular HGB Conc 31.5 g/dL (31.8-35.4); Mean Corpuscular Hemoglobin 25.1 pg (27.0-31.2); Mean Corpuscular Volume 79.8 fl (81-99); Nucleated Red Blood Cells % 0.2 %; Platelet Count 307 K/mm3 (142-424); Red Blood Count 3.82 M/mm3 (4.20-5.40); Red Cell Distribution Width-SD 43.5 fL; White Blood Count 12.3 K/mm3 (4.8-10.8)
[2025-05-08 11:35] LABS: Alanine Aminotransferase 16 U/L (12-78); Albumin Level 3.4 g/dl (3.5-5.0); Albumin/Globulin Ratio 1.1 (1.1-1.8); Alkaline Phosphatase 205 U/L (38-126); Anion Gap 10.3 mEq/L (5-15); Aspartate Amino Transferase 31 U/L (14-36); Bilirubin,Total 0.3 mg/dl (0.2-1.3); Blood Urea Nitrogen 7 mg/dl (7-17); Calcium 7.4 mg/dl (8.4-10.2); Carbon Dioxide 21 mmol/L (22.0-30.0); Chloride 105 mmol/L (98-107); Creatinine Clearance Estimated 209 mL/min (50-200); Creatinine,Serum 0.60 mg/dl (0.52-1.04); Estimated Glomerular Filt Rate 111 ml/min (>60); GFR (African American) 135 ML/MIN (>60); Globulin 3.0 g/dL (1.3-3.2); Glucose 79 mg/dl (74-100); Magnesium 5.2 mg/dl (1.6-2.3); Potassium 4.3 mmoL/L (3.5-5.1); Sodium 132 mmol/L (136-145); Total Protein,Serum 6.4 g/dl (6.3-8.2); Uric Acid 4.7 mg/dl (2.5-6.2)
[2025-05-08] MEDS: OXYTOCIN/RINGERS LACTATE 30 UNITS/500 ML BAG 999 UNITS IV (12:42)
[2025-05-08] MEDS: OXYTOCIN/RINGERS LACTATE 30 UNITS/500 ML BAG 40 UNITS IV (12:58)
--- NOTE | 2025-05-08 13:52 | EXP.DN ---
Delivery Note Delivery Date:: 05/08/25 Delivery Time:: 12:38 Anesthesia Type: Epidural Was labor medically induced?: Yes Induction method: AROM Gestational age (weeks): 37 Infant delivered prior to 39 weeks?: Yes Justification for early elective delivery:: Pre-eclampsia Infant Gender: Female at 1 minute: 2 at 5 minutes: 1 Delivery Procedure:: Preoperative diagnosis: 1. completed this weeks gestation, vertex 2. Rh positive 3. GBS negative 4. Nonreactive NST 5. Preeclampsia, on magnesium 6. Iron deficiency anemia 7. Chronic hypertension 8. Advanced maternal age 9. Obesity Postoperative diagnosis: 1. completed this weeks gestation, vertex 2. Rh positive 3. GBS negative 4. Nonreactive NST 5. Preeclampsia, on magnesium 6. Iron deficiency anemia 7. Chronic hypertension 8. Advanced maternal age 9. Obesity EBL: 100mL Specimen: 1. Cord blood 2. Venous cord gases 3. Live viable female 4. Placenta Findings: 1. Liveborn viable female infant: Ilya. Apgars 2 at 1 minute, 1 at 5 minutes, 7 at 10 minutes, and 9 at 15 minute's 7/9 at 1 and 5 minutes respectively. Weight 5 pounds 4 ounces Complications: None Procedure: Nonoperative spontaneous vaginal delivery Kala Coles is a 39-year-old who presented after office visit yesterday with severe range blood pressures. She was started on magnesium overnight and received 20 and 40 of IV labetalol to control her blood pressure. Patient received an epidural for anesthesia. This morning she was started on Pitocin and had AROM. She progressed to complete FHT were reassuring throughout labor. She pushed for 1 contraction and there was a nonoperative spontaneous vaginal delivery at 1238. There was a nuchal cord x1 that was reduced without difficulty. The anterior right shoulder delivered, followed by the posterior shoulder without dystocia. There was a compound presentation with the posterior hand. The body and lower extremities delivered without difficulty. The infant was bulb suctioned and vigorously stimulated without significant improvement. The umbilical cord was clamped and cut and the infant was passed off for evaluation by the pediatric team. Venous cord gases were obtained, arterial cord gases were attempted but there was insufficient return of arterial cord blood. Cord blood was collected and sent for routine testing. The placenta delivered with cord traction and suprapubic contertraction. Pitocin was started. The uterus was firm and bleeding was minimal. The perineum, vaginal frias, cervix, and paraurethral area were inspected thoroughly and noted to be free of laceration. This concluded the delivery. The patient was counseled regarding the events of the delivery and repair. The patient tolerated the delivery well. All counts were correct by nursing. Mother and currently doing well and bonding at time of dictation. Placental Delivery Description: Spontaneous
[2025-05-08] MEDS: ACETAMINOPHEN 500MG TAB 1000 MG PO (14:37)
[2025-05-08] MEDS: IBUPROFEN 400 MG TABLET 800 MG PO (14:37)
[2025-05-08] MEDS: PRENATAL MULTIVITAMIN W/IRON 1 EACH PO (17:25)
[2025-05-08] MEDS: LACTATED RINGERS 1000ML 1,000 ML 75 ML IV (18:26)
[2025-05-09] VITALS (14 sets, daily range): BP systolic 105–140; BP diastolic 52–69; PULSE 65–93; RESP 14–20; TEMP 36.7–36.9; O2SAT 94–99
[2025-05-09 00:07] LABS: POC Glucose,Bedside 56 (70-110)
--- NOTE | 2025-05-09 01:08 | PC.NURSE ---
2356 POC glucose of 56 charted in error after incorrect wristband scanned
[2025-05-09 05:54] LABS: Chloride 108 mmol/L (98-107)
[2025-05-09 05:55] LABS: Albumin Level 2.8 g/dl (3.5-5.0); Potassium 4.0 mmoL/L (3.5-5.1); Sodium 135 mmol/L (136-145)
[2025-05-09] MEDS: IBUPROFEN 400 MG TABLET 800 MG PO ×2 (05:55→15:56)
[2025-05-09] MEDS: ACETAMINOPHEN 500MG TAB 1000 MG PO ×2 (05:55→15:56)
[2025-05-09] MEDS: BENZOCAINE-MENTHOL SPRAY 56GM CAN TP (05:56)
[2025-05-09] MEDS: WITCH HAZEL 40 PADS/BOX 1 EACH TP (05:56)
[2025-05-09 05:57] LABS: Alanine Aminotransferase 14 U/L (12-78); Anion Gap 7.0 mEq/L (5-15); Aspartate Amino Transferase 27 U/L (14-36); Blood Urea Nitrogen 7 mg/dl (7-17); Carbon Dioxide 24 mmol/L (22.0-30.0); Creatinine Clearance Estimated 209 mL/min (50-200); Creatinine,Serum 0.60 mg/dl (0.52-1.04); Estimated Glomerular Filt Rate 111 ml/min (>60); GFR (African American) 135 ML/MIN (>60)
[2025-05-09 05:58] LABS: Albumin/Globulin Ratio 1.1 (1.1-1.8); Alkaline Phosphatase 143 U/L (38-126); Bilirubin,Total 0.3 mg/dl (0.2-1.3); Calcium 7.0 mg/dl (8.4-10.2); Globulin 2.6 g/dL (1.3-3.2); Glucose 104 mg/dl (74-100); Total Protein,Serum 5.4 g/dl (6.3-8.2)
[2025-05-09 06:10] LABS: Hematocrit 24.3 % (37.0-47.0); Immature Granulocytes % 0.7 %; Mean Corpuscular HGB Conc 31.7 g/dL (31.8-35.4); Mean Corpuscular Hemoglobin 25.6 pg (27.0-31.2); Mean Corpuscular Volume 80.7 fl (81-99); Nucleated Red Blood Cells % 0 %; Platelet Count 277 K/mm3 (142-424); Red Blood Count 3.01 M/mm3 (4.20-5.40); Red Cell Distribution Width-SD 43.9 fL; White Blood Count 12.3 K/mm3 (4.8-10.8)
[2025-05-09 06:33] LABS: Hemoglobin 7.6 g/dL (12.2-16.2)
[2025-05-09] MEDS: LABETALOL 100MG TABLET 200 MG PO ×3 (09:10→21:12)
[2025-05-09] MEDS: MAGNESIUM SULFATE IN WATER 20 GM/500 ML IV.SOLN IV (09:10)
[2025-05-09] MEDS: FAMOTIDINE 20MG TABLET 40 MG PO (09:10)
--- NOTE | 2025-05-09 10:59 | P.PN_ITS ---
Subjective *Date: 05/09/25 *Time: 10:59 Interval history: Kala Beltran is a pleasant 39yo G8, [id number] day #1 following a normal spontaneous vaginal delivery at 37 weeks and 1 days gestation. This has been complicated by severe range blood pressures, advanced maternal age, obesity, chronic hypertension, and iron deficiency anemia. She has a hx of of preeclampsia and PTD. She had IUGR with this but it has since resolved, see ultrasound below. Infant was slow to transition with low apgars at delivery but normal cord gasses and has been in kangaroo care and doing well. Delivery was also complicated by a PPH, bleeding has been stable. -Reports pain is well-controlled -Reports she is tolerating p.o. without nausea or vomiting. -Reports her lochia is scant. -She is bottle-feeding her female infant -Denies chest pain shortness of breath or pain in her legs. No further complaints at this time. Exam Data for Last 24 hours Vital signs and Labs for Last 24 Hours: Temp Pulse Resp BP Pulse Ox O2 Del Method 98.1 F 72 18 134/64 98 Room Air 05/09/25 07:41 05/09/25 09:41 05/09/25 09:41 05/09/25 09:41 05/09/25 08:41 05/09/25 08:41 Laboratory Results - last 24 hr 05/07/25 11:45: Blood Type O Positive, Antibody Screen Negative, Crossmatch (AHG) See Detail 05/08/25 11:12: WBC 12.3 H, RBC 3.82 L, Hgb 9.6 L, Hct 30.5 L, MCV 79.8 L, MCH 25.1 L, MCHC 31.5 L, RDW 17.0, Plt Count 307, MPV 10.4, Neut % (Auto) 81.8 H, Lymph % (Auto) 11.6, [place] % (Auto) 5.4, Eos % (Auto) 0.4, Baso % (Auto) 0.2, Neut # (Auto) 10.1 H, Lymph # (Auto) 1.4, [place] # (Auto) 0.7, Eos # (Auto) 0.1, Baso # (Auto) 0.0, Sodium 132 L, Potassium 4.3, Chloride 105, Carbon Dioxide 21 L, Anion Gap 10.3, BUN 7, Creatinine 0.60, Estimated Creat Clear 209, Estimated GFR 111, Est GFR ( Amer) 135, Glucose 79, Uric Acid 4.7, Calcium 7.4 L, Magnesium 5.2 H D, Total Bilirubin 0.3, AST 31, ALT 16, Alkaline Phosphatase 205 H, Lactate Dehydrogenase 193 L, Total Protein 6.4, Albumin 3.4 L, Globulin 3.0, Albumin/Globulin Ratio 1.1 05/08/25 12:53: Cord ABG pH 7.38 05/08/25 13:44: Cord ABG pH 7.38 05/08/25 23:56: POC Glucose 56 L 05/09/25 04:52: WBC 12.3 H, RBC 3.01 L, Hgb 7.6 L D, Hct 24.3 L, MCV 80.7 L, MCH 25.6 L, MCHC 31.7 L, RDW 17.2, Plt Count 277, MPV 11.1 H, Neut % (Auto) 73.9, Lymph % (Auto) 18.7, [place] % (Auto) 5.8, Eos % (Auto) 0.7, Baso % (Auto) 0.2, Neut # (Auto) 9.1 H, Lymph # (Auto) 2.3, [place] # (Auto) 0.7, Eos # (Auto) 0.1, Baso # (Auto) 0.0, Sodium 135 L, Potassium 4.0, Chloride 108 H, Carbon Dioxide 24, Anion Gap 7.0, BUN 7, Creatinine 0.60, Estimated Creat Clear 209, Estimated GFR 111, Est GFR ( Amer) 135, Glucose 104 H D, Calcium 7.0 L, Total Bilirubin 0.3, AST 27, ALT 14, Alkaline Phosphatase 143 H, Total Protein 5.4 L, Albumin 2.8 L D, Globulin 2.6, Albumin/Globulin Ratio 1.1 I & O for Last 24 hours: Intake & Output 05/06/25 05/07/25 05/08/25 05/09/25 23:59 23:59 23:59 23:59 Intake Total 4531.917 / 4531.917 560 / 560 Output Total 2450 / 2450 1600 / 1600 Balance 2081.917 / 2081.917 -1040 / -1040 Weight 232 lb Narrative: General: patient is alert oriented in no acute distress and responds appropriately to questions. Appears to be in minimal pain. Sitting up in the bed and doing well HEENT: NCAT, EOMI, moist mucous membranes, neck supple with full ROM Cardiovascular: RRR +S1/S2, no murmurs or rubs Pulmonary: Clear to auscultation bilaterally, nonlabored breathing, symmetric chest rise Abdominal: Fundus at the umbilicus, firm, and tenderness appropriate for the period. Extremities: trace edema, no tenderness or cyanosis noted, plus 2 out of 4 bilateral patellar reflexes Skin: Normal turgor, intact, warm. Negative for erythema, pallor, petechia, or lesions Neurologic: Negative for sensory or motor deficit Psychiatric: Normal affect, normal thought process, good judgment and insight, no depression or anxious mood appreciated. Assessment and Plan *Assessment and plan (1) Bilateral carpal tunnel syndrome: Status: Acute Category: Medical Code(s): G56.03 - Carpal tunnel syndrome, bilateral upper limbs (2) IUGR (intrauterine growth restriction): Status: Acute Category: Medical (3) Chronic hypertension affecting : Status: Acute Category: Medical Code(s): O10.919 - Unspecified pre-existing hypertension complicating , unspecified trimester (4) Advanced maternal age (AMA) in : Status: Acute Category: Medical (5) Obesity (BMI 30-39.9): Status: Acute Category: Medical Code(s): E66.9 - Obesity, unspecified (6) History of recurrent miscarriages: Status: Acute Category: Medical Code(s): N96 - Recurrent loss (7) Severe preeclampsia: Status: Acute Category: Medical Code(s): O14.10 - Severe pre-eclampsia, unspecified trimester (8) Microcytic anemia: Status: Acute Category: Medical Code(s): D50.9 - Iron deficiency anemia, unspecified (9) Encounter for induction of labor: Status: Acute Category: Medical Code(s): Z34.90 - Encounter for supervision of normal , unspecified, unspecified trimester (10) (normal spontaneous vaginal delivery): Status: Acute Category: Medical Code(s): O80 - Encounter for full-term uncomplicated delivery Plan Stable. PPD#1 s/p -IP. -Doing well. VSS. Serial lochia and fundal checks. -Continue with perineal ice packs for discomfort -Hemoglobin: 9.6--> 7.6 -O+/antibody negative -Bottlefeeding, female -Contraception: undecided -Follow-up 2 weeks for routine visit -Dispo: home in 1-3 days pending mother/ status #Anemia -Hemoglobin is 9.1, she is at a high risk for hemorrhage. Will have 2 units on hold for her. Will continue her IV iron infusions . This is a microcytic anemia that was present on admission - day #1 IV Venofer ordered #Advanced maternal age - NIPT was collected in the first trimester and was inconclusive, it was repeated, eventually she was sent to [facility] and had a normal anatomy scan #obesity - testing was completed throughout - BMI at delivery: 40, complicates all aspects of care #chronic hypertension -IUGR, resolved. see above US - PIH labs are within normal limits and no proteinuria - She had severe range blood pressures overnight and magnesium was started. Magnesium will be continued until 24 hours after delivery, this will be discontinued on day 1 around 1230 - PIH labs will be followed every 24 hours - Continue labetalol - Follow IV labetalol or IV hydralazine protocol, for severe and blood pressure first #hx of of preeclampsia #Hx of PTD
[2025-05-09] MEDS: IRON SUCROSE COMPLEX 200 MG in 0.9 % SODIUM CHLORIDE 100 ML 220 MG IV (12:40)
[2025-05-09] MEDS: SIMETHICONE 80MG CHEWABLE TABLET 160 MG PO (15:56)
[2025-05-09] MEDS: PRENATAL MULTIVITAMIN W/IRON 1 EACH PO (17:52)
[2025-05-09] MEDS: SERTRALINE 50MG TABLET 50 MG PO (21:12)
[2025-05-09] MEDS: PANTOPRAZOLE 40MG TABLET 40 MG PO (21:12)
[2025-05-10 04:41] VITALS: BP 148/70; PULSE 81; RESP 18; TEMP 37.1; O2SAT 98
[2025-05-10 05:58] LABS: Hematocrit 24.9 % (37.0-47.0); Hemoglobin 7.5 g/dL (12.2-16.2); Immature Granulocytes % 2.4 %; Mean Corpuscular HGB Conc 30.1 g/dL (31.8-35.4); Mean Corpuscular Hemoglobin 24.8 pg (27.0-31.2); Mean Corpuscular Volume 82.5 fl (81-99); Nucleated Red Blood Cells % 0.3 %; Platelet Count 249 K/mm3 (142-424); Red Blood Count 3.02 M/mm3 (4.20-5.40); Red Cell Distribution Width-SD 45.6 fL; White Blood Count 11.6 K/mm3 (4.8-10.8)
[2025-05-10 06:07] LABS: Albumin Level 3.0 g/dl (3.5-5.0); Chloride 111 mmol/L (98-107); Potassium 4.1 mmoL/L (3.5-5.1); Sodium 139 mmol/L (136-145)
[2025-05-10 06:09] LABS: Alanine Aminotransferase 15 U/L (12-78); Aspartate Amino Transferase 31 U/L (14-36); Blood Urea Nitrogen 8 mg/dl (7-17); Creatinine Clearance Estimated 209 mL/min (50-200); Creatinine,Serum 0.60 mg/dl (0.52-1.04); Estimated Glomerular Filt Rate 111 ml/min (>60); GFR (African American) 135 ML/MIN (>60)
[2025-05-10 06:10] LABS: Albumin/Globulin Ratio 1.1 (1.1-1.8); Alkaline Phosphatase 146 U/L (38-126); Bilirubin,Total 0.2 mg/dl (0.2-1.3); Calcium 7.7 mg/dl (8.4-10.2); Globulin 2.7 g/dL (1.3-3.2); Glucose 73 mg/dl (74-100); Total Protein,Serum 5.7 g/dl (6.3-8.2)
[2025-05-10] MEDS: IBUPROFEN 400 MG TABLET 800 MG PO (06:31)
[2025-05-10] MEDS: ACETAMINOPHEN 500MG TAB 1000 MG PO (06:31)
[2025-05-10 06:49] LABS: Anion Gap 8.1 mEq/L (5-15); Carbon Dioxide 24 mmol/L (22.0-30.0)
[2025-05-10] MEDS: FAMOTIDINE 20MG TABLET 40 MG PO (08:25)
[2025-05-10] MEDS: LABETALOL 100MG TABLET 200 MG PO (08:25)
[2025-05-10 08:27] VITALS: BP 143/77; PULSE 83; RESP 18; TEMP 36.9; O2SAT 99
--- NOTE | 2025-05-10 10:50 | EXP.DC.SUM ---
General Admission date:: 05/07/25 Discharge date: 05/10/25 HPI HPI HPI: PPD # 2 s/p Feeling well. Pain controlled. She received 24 hrs of mag sulfate after delivery. Mag was d/c'd yesterday afternoon. Formula feeding but plans to transition to breast feed once home. Lochia is light. Voiding without difficulty and passing flatus. Tolerating regular diet. Denies fever/chills, chest pain and shortness of breath. No headaches, vision changes, lightheadedness/dizziness. Admits to mild lower extremity swelling. No calf pain. Ambulating well ad harjinder. Hospital Course Hospital Course Hospital Course: Kala Beltran is a pleasant 39-year-old -0-5-2 who presented to my office yesterday with elevated blood pressure and a nonreactive NST she was sent to labor and delivery for evaluation. Overnight she had blood pressure elevations and magnesium was started along with her induction. Yesterday on admission she was 37 weeks and 0 days gestation. She has an ARIA of 05/28/2025 based on last menstrual period consistent with first trimester ultrasound. On presentation she endorsed good movement, denied any leakage of fluid or vaginal bleeding. She has had 2 previous spontaneous vaginal deliveries. This has been complicated by advanced maternal age, obesity, chronic hypertension, and iron deficiency anemia. She has a hx of of preeclampsia and PTD. She had IUGR with this but it has since resolved, see ultrasound below. Her NIPT was inconclusive and of MFM referral was placed her anatomy scan has been within normal limits. Her chronic hypertension has been managed with aspirin 162 mg daily as well as labetalol 200 mg 3 times a day she has had testing. Her BMI was 37 and she had testing for this as well. She has not developed any proteinuria and has remained asymptomatic without any headaches, vision changes, right upper quadrant pain. She has been receiving IV iron infusions to improve her iron deficiency anemia [facility] on 04/30/2025 showed an with an EFW of 2363 g, 5 pounds 3 ounces, 11th percentile. BPD: 13%, HC: Less than 1%, AC: 12%, FL: 10%. HC/AC ratio: 1.01. MVP: 6.3 cm. O+, antibody negative, rubella and varicella immune, hepatitis B negative, hepatitis C negative, RPR negative, HIV negative 1 hour GTT: 108 GBS negative She had a normal spontaneous vaginal delivery on 05/08/25 at 1238. She delivered a live female baby, Ilya, weighing 5 lbs 4 oz. Apgars 2 (1 minute), 1 (5 minutes, 7 (10 minutes), 9 (15 minute). EBL 100 mL at delivery. After delivery total QBL was 917 mL. She did well . She received 24 hours of mag sulfate after delivery and continued Labetalol 200mg TID.. She received Venofer 200 mg IV x 1 dose on PPD # 1. Hgb on admission 05/08/25 was 9.6. PPD # 1 Hgb was 7.6. Pain controlled. Formula feeding. Light lochia. Voiding without difficulty and passing flatus. Tolerating regular diet. Denies fever/chills, chest pain and shortness of breath. No headaches, dizziness/lightheadedness or vision changes. Vital signs stable, afebrile. Heart regular rate and rhythm. Lungs clear to auscultation. Abdomen soft, nontender. Trace lower extremity edema. Ambulating well ad harjinder. She was discharged to home on PPD # 2 with instructions to follow-up in the office next week for BP check. Recommended she continue oral ferrous sulfate. Exam Data for Last 24 hours Vital signs and Labs for Last 24 Hours: Temp Pulse Resp BP Pulse Ox O2 Del Method 98.4 F 83 18 143/77 H 99 Room Air 05/10/25 08:27 05/10/25 08:27 05/10/25 08:27 05/10/25 08:27 05/10/25 08:27 05/10/25 08:27 Laboratory Results - last 24 hr 05/10/25 05:00: WBC 11.6 H, RBC 3.02 L, Hgb 7.5 L, Hct 24.9 L, MCV 82.5, MCH 24.8 L, MCHC 30.1 L, RDW 17.9 H, Plt Count 249, MPV 10.8 H, Neut % (Auto) 72.5, Lymph % (Auto) 18.7, [place] % (Auto) 5.2, Eos % (Auto) 0.9, Baso % (Auto) 0.3, Neut # (Auto) 8.4 H, Lymph # (Auto) 2.2, [place] # (Auto) 0.6, Eos # (Auto) 0.1, Baso # (Auto) 0.0, Sodium 139, Potassium 4.1, Chloride 111 H, Carbon Dioxide 24, Anion Gap 8.1, BUN 8, Creatinine 0.60, Estimated Creat Clear 209, Estimated GFR 111, Est GFR ( Amer) 135, Glucose 73 L, Calcium 7.7 L, Total Bilirubin 0.2, AST 31, ALT 15, Alkaline Phosphatase 146 H, Total Protein 5.7 L, Albumin 3.0 L, Globulin 2.7, Albumin/Globulin Ratio 1.1 I & O for Last 24 hours: Intake & Output 05/07/25 05/08/25 05/09/25 05/10/25 23:59 23:59 23:59 23:59 Intake Total 4531.917 / 4531.917 2330 / 2330 Output Total 2450 / 2450 1950 / 1950 Balance 2081.917 / 2081.917 380 / 380 Weight 232 lb Constitutional Constitutional: no acute distress, obese and cooperative *Routine HEENT Exam Head: Present normocephalic and atraumatic Eye: Absent conjunctivae pink ENT: Present mucous membranes moist *Routine Neck Exam Neck: Present full ROM *Routine Respiratory Exam Respiratory: Present CTA bilaterally and normal respiratory effort *Routine Cardiovascular Exam Cardiovascular: Present RRR *Routine Abdominal Exam Abdominal: Present soft and normoactive bowel sounds; Absent tenderness or distended *Routine Rectal Exam Patient deferred: visual exam *Routine Exam Patient deferred: external exam *Routine Extremities Exam Extremities: Present edema (trace bilateral lower extremity edema) and full ROM; Absent calf tenderness *Routine Neurological Exam Neurological: Present alert, moving all extremities and normal speech Routine Psychiatric Exam Psychiatric: Present normal affect and cooperative Results Data Completed and Pending Labs on day of discharge: Labs from last 24 hours 05/10/25 05:00 WBC 11.6 H RBC 3.02 L Hgb 7.5 L Hct 24.9 L MCV 82.5 MCH 24.8 L MCHC 30.1 L RDW 17.9 H Plt Count 249 MPV 10.8 H Neut % (Auto) 72.5 Lymph % (Auto) 18.7 [place] % (Auto) 5.2 Eos % (Auto) 0.9 Baso % (Auto) 0.3 Neut # (Auto) 8.4 H Lymph # (Auto) 2.2 [place] # (Auto) 0.6 Eos # (Auto) 0.1 Baso # (Auto) 0.0 Sodium 139 Potassium 4.1 Chloride 111 H Carbon Dioxide 24 Anion Gap 8.1 BUN 8 Creatinine 0.60 Estimated Creat Clear 209 Estimated GFR 111 Est GFR ( Amer) 135 Glucose 73 L Calcium 7.7 L Total Bilirubin 0.2 AST 31 ALT 15 Alkaline Phosphatase 146 H Total Protein 5.7 L Albumin 3.0 L Globulin 2.7 Albumin/Globulin Ratio 1.1 DS: Diagnosis Discharge Diagnosis (1) (normal spontaneous vaginal delivery): Status: Acute Code(s): O80 - Encounter for full-term uncomplicated delivery (2) Encounter for induction of labor: Status: Acute Code(s): Z34.90 - Encounter for supervision of normal , unspecified, unspecified trimester (3) Severe preeclampsia: Status: Acute Code(s): O14.10 - Severe pre-eclampsia, unspecified trimester Qualifiers: Trimester: third trimester Qualified Code(s): O14.13 - Severe pre-eclampsia, third trimester (4) IUGR (intrauterine growth restriction): Status: Acute (5) Chronic hypertension affecting : Status: Acute Code(s): O10.919 - Unspecified pre-existing hypertension complicating , unspecified trimester (6) Advanced maternal age (AMA) in : Status: Acute (7) Obesity (BMI 30-39.9): Status: Acute Code(s): E66.9 - Obesity, unspecified (8) History of recurrent miscarriages: Status: Acute Code(s): N96 - Recurrent loss (9) Microcytic anemia: Status: Acute Code(s): D50.9 - Iron deficiency anemia, unspecified (10) Bilateral carpal tunnel syndrome: Status: Acute Code(s): G56.03 - Carpal tunnel syndrome, bilateral upper limbs Meds Home Medications and Allergies Home Medications ?Medication ?Instructions ?Recorded ?Confirmed ?Type famotidine 40 mg tablet 40 mg PO DAILY 01/18/24 05/07/25 History hydroxyzine HCl 10 mg tablet 10 mg PO QIDP PRN Anxiety 01/18/24 05/07/25 History omeprazole 20 mg capsule,delayed 20 mg PO DAILY 01/18/24 05/07/25 History release sertraline 50 mg tablet 50 mg PO DAILY 01/18/24 05/07/25 History aspirin 81 mg tablet,delayed 81 mg PO BID 05/07/25 05/07/25 History release labetalol 200 mg tablet 200 mg PO BID 05/07/25 05/07/25 History ibuprofen 800 mg tablet 800 mg PO Q8H PRN pain #20 tabs 05/10/25 Rx New Prescriptions to Start Prescriptions: Rosalinda Wright Allergies Allergy/AdvReac Type Severity Reaction Status Date / Time No Known Allergies Allergy Verified 05/07/25 09:33 Discharge Plan Disposition Patient Disposition: Home, Self-Care Condition: Good Discharge Order Discharge Orders: Discharge Order (Routine); Ordered 05/10/25 Ordered By: Rosalinda Brock Follow up Plan Follow up with: Jocelyn Bender DO [Staff Physician, LIGHT CLEANER] - 05/14/25 10:45 am Prescriptions/Medication Reconciliation: New ibuprofen 800 mg tablet 800 mg PO Q8H PRN (Reason: pain) Qty: 20 0RF Continued labetalol 200 mg tablet 200 mg PO BID aspirin 81 mg tablet,delayed release (DR/EC) 81 mg PO BID famotidine 40 mg tablet 40 mg PO DAILY omeprazole 20 mg capsule,delayed release(DR/EC) 20 mg PO DAILY Patient Comments: take 1 tablet by mouth daily hydroxyzine HCl 10 mg tablet 10 mg PO QIDP PRN (Reason: Anxiety) sertraline 50 mg tablet 50 mg PO DAILY Patient Comments: take 1 tablet by mouth once daily Problem Reconciliation Problems Reviewed?: Yes Patient Discharge Instructions ACTIVITY: Limited activity DIET: continue same diet and regular diet Additional Instructions: Congratulations!! Discharge: 1. Take 800 mg Ibuprofen every 8 hours as needed for pain. You can also take 500-1000 mg of Tylenol in between doses, every 6-8 hours. 2. Nothing in the vagina for 6 weeks - no intercourse, douching or tampons. No tub baths/hot tubs or swimming pools 3. Reasons to return to L&D or call On-Call doctor - fever (greater than 100.4) - heavy vaginal bleeding (soaking through 1 pad in less than 2 hours) - vaginal discharge (malodorous and/or purulent) - severe headaches not resolved by medication or rest 4. depression/blues - Normal to feel anxious/overwhelmed for first 2 weeks - Talk to your doctor if: severe anxiety, trouble bonding with baby, withdrawing from other family members, thoughts of harming yourself or others Rosalinda Brock DO [facility] [phone] Print Language: Icelandic Providers Primary Care Provider: Kimmie Valverde Admit Provider: Jocelyn Bender Attending Provider: Jocelyn Bender
== END 2025-05-10 12:26 | disposition home or self-care (01) | DRG 806 ==
LOC: OBOUT 09:54 → OB 09:54
PROVIDERS: Obstetrics & Gynecology; Admitting Provider Obstetrics & Gynecology; PCP Nurse Practitioner; Visit Provider Obstetrics & Gynecology
DX: O11.4 Pre-existing hypertension with pre-eclampsia, complicating childbirth (principal); O99.354 Diseases of the nervous system complicating childbirth; Z37.0 Single live birth; O10.92 Unspecified pre-existing hypertension complicating childbirth; O99.214 Obesity complicating childbirth; O26.23 Pregnancy care for patient with recurrent pregnancy loss, third trimester; Z3A.37 37 weeks gestation of pregnancy; O99.02 Anemia complicating childbirth; D50.9 Iron deficiency anemia, unspecified; G56.03 Carpal tunnel syndrome, bilateral upper limbs; O72.1 Other immediate postpartum hemorrhage; O36.5930 Maternal care for other known or suspected poor fetal growth, third trimester, not applicable or unspecified; O99.344 Other mental disorders complicating childbirth; F41.9 Anxiety disorder, unspecified; F32.A Depression, unspecified; O99.62 Diseases of the digestive system complicating childbirth; K21.9 Gastro-esophageal reflux disease without esophagitis; O69.81X0 Labor and delivery complicated by cord around neck, without compression, not applicable or unspecified; O32.6XX0 Maternal care for compound presentation, not applicable or unspecified; Z23 Encounter for immunization; Z79.82 Long term (current) use of aspirin; Z79.899 Other long term (current) drug therapy
CPT/HCPCS: 36415; 51702; 59025; 76819; 80048; 80053; 82570; 82800; 82962; 83615; 83735; 84156; 84550; 85025; 85378; 85384; 85610; 85730; 86592; 86850; 94761; C1758; J1756; J1920; J2405; J2795; J3010; J3475; J7120; J7121

== ENCOUNTER 2025-05-16 12:08 | Outpatient (CLI) | payer OTHER, SELFPAY ==
--- OUTSIDE RECORDS SUMMARY | 2025-03-25 15:00 | XMS_ITS | Encounter Summary ---
Author Organization [facility] Address [address] [place] [address] Care Team Providers Care Shotblast Equipment Operator Name Role Phone Provider, No Known Primary Care Provider [phone] Reason for Visit * Diagnostic Imaging (Routine) - Closed Specialty Diagnoses / Procedures Referred By Carolyne diaz Referred To Contact Radiology Diagnoses Abnormal genetic test during Chronic hypertension affecting Procedures [facility] Bentley, Dominick Silva MD [address] [place] [address] Phone: tel: fax: Referral ID Status Reason Start Date Expiration Date Visits Re quested Visits Authorized [id number] Closed 12/30/2024 03/31/2026 4 4 Encounter Details Date Type Department Care Team (Latest Contact Info) Description 03/25/2025 3:00 PM EDT - 03/25/2025 11:59 PM EDT Hospital Encounter [facility] PER DIAG CTR [address] [place] [address] Wilber Bender, [address] [facility] [address] [place] [id number] Discharge Disposition: Home or Self Care Social [...] this encounter Medications at Time of Discharge aspirin 81 MG EC tablet Take 1 [...] Take 1 tablet by mouth Daily. 10/19/2023 amLODIPine (NORVASC) 5 MG tablet take 1 tablet (5 mg) by oral route once daily 10/19/2023 documented as of this encounter Plan of Treatment Not on file documented as of this encounter Procedures Procedure Name Priority Date/Time Associated Diagnosis Comments [facility] Routine 03/25/2025 3:56 PM EDT Abnormal genetic test during Chronic hypertension affecting documented in this encounter Results * [facility] (03/25/2025 3:56 PM EDT) Anatomical Region Laterality Modality Ultrasound 03/25/2025 3:25 PM EDT Narrative 03/25/2025 4:18 PM EDT PAT NAME: SHIVAM BERNARD MED REC#: [id number] DA: [id number] PAT GEND: F PAT TYPE: O EXAM ALIREZA: [id number] REF PHYS WILBER BENDER Comparison Studies The findings of this study are compared to the prior ultrasound study dated 02/25/25. Patient Status Outpatient Indication ======== Abnormal NIPT (high risk triploidy, T13, T18.) AMA. CHTN. Hx preeclampsia & PTD (32 & 35 wk). Obesity BMI 39. Maternal Assessment Height 160 cm Height (ft) 5 ft Height (in) 3 in Weight 103 kg Weight (lb) 227 lb BMI 40.22 kg/m Method ======= Transabdominal ultrasound examination ========= Black . Number of fetuses: 1 Dating ====== GA by prior assessment 30 w + 6 d ARIA by prior assessment: 05/28/2025 Ultrasound examination on: 03/25/2025 GA by U/S based upon: AC, BPD, Femur, HC GA by U/S 29 w + 0 d ARIA by U/S: 06/10/2025 Method of dating: Restore dating from previous exam Previous dating: based on stated ARIA, selected on 02/25/2025 Agreed ARIA of previous datin05/28/2025 Assigned: based on stated ARIA, selected on 02/25/2025 Assigned GA 30 w + 6 d Assigned ARIA: 05/28/2025 length 280 d Biometry Standard BPD 74.1 mm 29w 5d 11% Hadlock OFD 93.7 mm 30w 2d 33% Bella HC 267.1 mm 29w 1d <1% Hadlock Cerebellum tr 38.6 mm 31w 3d 48% Hill AC 252.3 mm 29w 3d 11% Hadlock Femur 51.2 mm 27w 3d <1% Hadlock Humerus 44.3 mm 26w 2d <1% Bella HC / AC 1.06 EFW 1,278 g 28w 3d 3% Hadlock EFW (lb) 2 lb EFW (oz) 13 oz EFW by: Hadlock (GXN-NH-NP-FL) Extended Tibia 45.8 mm 27w 6d 2% Bella Fibula 45.4 mm 28w 1d 15% Bella Foot 57.5 mm 9% Chitty Radius 37.7 mm 26w 2d 14% Bella Ulna 41.3 mm 26w 6d <1% Bella Cav. septi pel. tr 5.5 mm Analysis Evaluator 3.8 mm CM 4.7 mm 3% Nicolaides Head / Face / Neck Cephalic index 0.79 46% Nicolaides Extremities / Bony Struc FL / BPD 0.69 FL / HC 0.19 FL / AC 0.20 Other Structures FHR 143 bpm General Evaluation Cardiac activity present. FHR 143 bpm. movements present. Presentation cephalic. Placenta Placental site: anterior. Amniotic fluid Amount of AF: normal. MVP 6.9 cm. BHAVYA 20.7 cm. Q1 6.9 cm, Q2 3.7 cm, Q3 3.2 cm, Q4 6.9 cm. Anatomy Cranium: Normal Cavum septi pellucidi: Normal Cerebellum: Normal Cisterna magna: Normal Head / Neck Rt lateral ventricle: Normal Lt lateral ventricle: Normal Lips: Normal Profile: Normal Nose: Normal 4-chamber view: Appears normal RVOT view: Normal LVOT view: Normal Heart / Thorax 3-vessel view: Normal Stomach: Appears normal Kidneys: Appears normal Bladder: Appears normal Gender: female Wants to know gender: yes Doppler Arterial Umbilical A PI 1.04 70% Yang Umbilical A RI 0.68 73% Yang Umbilical A PS -38.44 cm/s Umbilical A ED -12.16 cm/s Umbilical A TAmax -24.86 cm/s Umbilical A MD -11.74 cm/s Umbilical A S / D 3.12 68% Yang Umbilical A HR 140 bpm Biophysical Profile 2: breathing movements 2: Gross body movements 2: tone 2: Amniotic fluid volume 04/25 Biophysical profile score Consultation / Office Visit Office note to follow Impression Today's exam reveals a SIUP in cephalic presentation with biometry inconsistent with dates, EFW at the 2%ile primarily drive by long bones though also small HC. Limited anatomic survey appears normal. The BHAVYA, UA dopplers and BPP are normal. No obvious bowing, thoracic or skull abnormalities to suggest skeletal dysplasia. Recommendation Follow up here in 2 weeks. Recommend twice weekly testing in your office (one being BPP/BHAVYA/UA dopplers). Coding ======= Description: 27528-89 Follow Up Ultrasound Description: 10015-10 BPP without NST Description: 15772-50 Doppler Umbilical Artery Photonic Laboratory Technician: Yoly Choudhary RDMS Physician: Dominick Bentley MD, FACOG Electronically signed by: Dominick Bentley MD, FACOG at: 16:18 Procedure Note Dominick Bentley MD - 03/25/2025 PAT NAME: SHIVAM BERNARD MED REC#: [id number] DA: [id number] PAT GEND: F PAT TYPE: O EXAM ALIREZA: [id number] REF PHYS WILBER BENDER Comparison Studies The findings of this study are compared to the prior ultrasound studydated 02/25/25. Patient Status Outpatient Indication ======== Abnormal NIPT (high risk triploidy, T13, T18.) AMA. CHTN. Hx preeclampsia& PTD (32 & 35 wk). Obesity BMI 39. Maternal Assessment Ixcnzo728 cm Height (ft)5 ft Height (in)3 in Pskvog736 kg Weight (lb)227 lb BMI40.22 kg/m Method ======= Transabdominal ultrasound examination ========= Black . Number of fetuses: 1 Dating ====== GA by prior mevktybygu99 w + 6 d ARIA by prior assessment:05/28/2025 Ultrasound examination on:03/25/2025 GA by U/S based upon:AC, BPD, Femur, HC GA by U/S29 w + 0 d ARIA by U/S:06/10/2025 Method of dating:Restore dating from previous exam Previous dating:based on stated ARIA, selected on 02/25/2025 Agreed ARIA of previous datin05/28/2025 Assigned:based on stated ARIA, selected on 02/25/2025 Assigned GA30 w + 6 d Assigned ARIA:05/28/2025 d Biometry Standard BPD74.1 mm 29w 5d 11% Hadlock OFD93.7 mm 30w 2d 33% Bella HC267.1 mm 29w 1d <1% Hadlock Cerebellum tr38.6 mm 31w 3d 48% Hill AC252.3 mm 29w 3d 11% Hadlock Femur51.2 mm 27w 3d <1% Hadlock Qvbyraq64.3 mm 26w 2d <1% Bella HC / AC1.06 EFW1,278 g 28w 3d 3% Hadlock EFW (lb)2 lb EFW (oz)13 oz EFW by:Hadlock (YPP-EY-RR-FL) Extended Tibia45.8 mm 27w 6d 2% Bella Sxkagr57.4 mm 28w 1d 15% Bella Foot57.5 mm 9% Chitty Plxyby52.7 mm 26w 2d 14% Bella Ulna41.3 mm 26w 6d <1% Bella Cav. septi pel. tr5.5 mm Vp3.8 mm CM4.7 mm 3% Nicolaides Head / Face / Neck Cephalic index0.79 46% Nicolaides Extremities / Bony Struc FL / BPD0.69 FL / HC0.19 FL / AC0.20 Other Structures GHZ242 bpm General Evaluation Cardiac activity present. FHR 143 bpm. movements present. Presentation cephalic. Placenta Placental site: anterior. Amniotic fluid Amount of AF: normal. MVP 6.9 cm. BHAVYA 20.7 cm. Q1 6.9 cm,Q2 3.7 cm, Q3 3.2 cm, Q4 6.9 cm. Anatomy Cranium:Normal Cavum septi pellucidi:Normal Cerebellum:Normal Cisterna magna:Normal Head / Neck Rt lateral ventricle:Normal Lt lateral ventricle:Normal Lips:Normal Profile:Normal Nose:Normal 4-chamber view:Appears normal RVOT view:Normal LVOT view:Normal Heart / Thorax 3-vessel view:Normal Stomach:Appears normal Kidneys:Appears normal Bladder:Appears normal Gender:female Wants to know gender:yes Doppler Arterial Umbilical A PI1.04 70% Yang Umbilical A RI0.68 73% Yang Umbilical A PS-38.44 cm/s Umbilical A ED-12.16 cm/s Umbilical A TAmax-24.86 cm/s Umbilical A MD-11.74 cm/s Umbilical A S / D3.12 68% Yang Umbilical A HR140 bpm Biophysical Profile 2: breathing movements 2: Gross body movements 2: tone 2: Amniotic fluid volume 04/25 Biophysical profile score Consultation / Office Visit Office note to follow Impression Today's exam reveals a SIUP in cephalic presentation with biometryinconsistent with dates, EFW at the 2%ile primarily drive by long bonesthough also small HC. Limited anatomic survey appears normal. The BHAVYA, UA dopplers and BPPare normal. No obvious bowing, thoracic or skull abnormalities to suggestskeletal dysplasia. Recommendation Follow up here in 2 weeks. Recommend twice weekly testing inyour office (one being BPP/BHAVYA/UA dopplers). Coding ======= Description:33524-82 Follow Up Ultrasound Description:25727-19 BPP without NST Description:90157-41 Doppler Umbilical Artery Photonic Laboratory Technician: Yoly Choudhary RDMS Physician: Dominick Bentley MD, FACOG Electronically signed by: Dominick Bentley MD, FACOG at: 16:18 us Dominick Bentley MD IMG US ORDERABLES Final Result documented in this encounter Visit Diagnoses Not on filedocumented in this encounter Care Teams Shotblast Equipment Operator Relationship Specialty Start Date End Date Provider, No Known [place] [id number] PCP - General 01/04/24 documented as of this encounter
--- OUTSIDE RECORDS SUMMARY | 2025-03-25 15:00 | XMS_ITS | Encounter Summary ---
[facility] Address [address] [place] [address] Care Team Providers Care Offal Icer Poultry Name Role Phone Provider, No Known Primary Care Provider [phone] Reason for Visit * Reason Comments ama, CHTN, ABN NIPT Encounter Details Date Type Department Care Team (Late st Contact Info) Description 03/25/2025 3:00 PM EDT Office Visit [facility] MATERNAL MEDICINE [address] [facility] [address] [place] [address] Dominick Bentley MD [address] [facility] [address] [place] [address] Poor growth affecting management of mother in [...] given her abnormal NIPT this could be senior sales representative of that testing. As of [...] that CMV testing was performed with primary GLUE SPREADER and she said that the IgM was positive and that the antibody was high though we do not have records of this. This could be indicative of IgM with high avidity which could be senior sales representative of new infection though patient [...] given her abnormal NIPT this could be senior sales representative of that testing. As of [...] that CMV testing was performed with primary GLUE SPREADER and she said that the IgM was positive and that the antibody was high though we do not have records of this. This could be indicative of IgM with high avidity which could be senior sales representative of new infection though patient [...] or sooner if clinically indicated. Orders: - [facility]; Standing 2. Chronic hypertension affecting Assessment & Plan: Patient presents for follow-up growth ultrasound secondary to AMA, chronic hypertension, abnormal NIPT. Blood sugar today 127/80. Orders: - [facility]; Standing 3. Antepartum multigravida of advanced maternal age - [facility]; Standing 4. Abnormal genetic test during Follow [...] Bentley MD, FACOG Maternal Medicine, [facility] documented in this encounter Plan of Treatment Not on file documented as of this encounter Visit Diagnoses Diagnosis Poor growth affecting management of mother in third trimester, single or unspecified fetus- Primary Chronic hypertension affecting Antepartum multigravida of advanced maternal age Abnormal genetic test during documented in this encounter Care Teams Offal Icer Poultry Relationship Specialty Start Date End Date Provider, [place] [address] PCP - General 01/04/24 documented as of this encounter
--- OUTSIDE RECORDS SUMMARY | 2025-04-08 14:33 | XMS_ITS | Encounter Summary ---
Author Organization [facility] Address [address] [place] [address] Care Team Providers Care Casing Worker Name Role Phone Provider, No Known Primary Care Provider [phone] Reason for Referral * Diagnostic Imaging (Routine) - Closed Specialty Diagnoses / Procedures Referred By Carolyne diaz Referred To Contact Radiology Diagnoses Abnormal genetic test during Chronic hypertension affecting Procedures [facility] Dominick Bentley MD [address] [place] [address] Phone: tel: fax: Referral ID Status Reason Start Date Expiration Date Visits Re quested Visits Authorized [id number] Closed 12/30/2024 03/31/2026 4 4 Reason for Visit * Diagnostic Imaging (Routine) - Closed Specialty Diagnoses / Procedures Referred By Carolyne diaz Referred To Contact Radiology Diagnoses Abnormal genetic test during Chronic hypertension affecting Procedures [facility] [place] Dominick Bentley MD [address] [facility] [address] [place] [address] Phone: tel: fax: Referral ID Status Reason Start Date Expiration Date Visits Re quested Visits Authorized [id number] Closed 12/30/2024 03/31/2026 4 4 Encounter Details Date Type Department Care Team (Late st Contact Info) Description 04/08/2025 2:33 PM EDT - 04/08/2025 11:59 PM EDT Hospital Encounter [facility] [address] [place] [address] Dominick Bentley MD [address] [place] [address] Abnormal genetic test during ; Chronic hypertension [...] Name Priority Date/Time Associated Diagnosis Comments [facility] Routine 04/08/2025 3:27 PM EDT Abnormal genetic test during Chronic hypertension affecting documented in this encounter Results * [facility] (04/08/2025 3:27 PM EDT) Anatomical Region Laterality Modality Ultrasound 04/08/2025 3:10 PM EDT Narrative 04/09/2025 12:30 PM EDT PAT NAME: SHIVAM BERNARD MED REC#: [id number] DA: [id number] PAT GEND: F PAT TYPE: O EXAM ALIREZA: [id number] REF PHYS WILBER BHAKTA Comparison Studies The [...] EFW (oz) 14 oz EFW by: Hadlock (YMY-TL-BM-FL) Extended Cav. septi pel. tr 4.9 mm Chicken Fancier 5.2 mm CM 8.0 mm 70% Nicolaides [...] in 3 weeks scheduled Coding ======= Description: 98351-45 Follow Up Ultrasound Description: 11784-75 BPP without NST Description: 25445-78 Doppler Umbilical Artery Addiction Professional: Josephine Gonzales RDMS Physician: Jessica Alejandra MD, FACOG Electronically signed by: Jessica Alejandra MD, FACOG at: 12:30 Procedure Note Jessica Alejandra MD - 04/09/2025 PAT NAME: SHIVAM BERNARD MED REC#: [id number] DA: [id number] PAT GEND: F PAT TYPE: O EXAM ALIREZA: [id number] REF PHYS WILBER BHAKTA Comparison Studies The findings of this study are compared to the prior ultrasound studydated 03/25/25 Patient Status Outpatient Indication ======== AMA. CHTN. Follow up IUGR. Abnormal NIPT (high risk triploidy, T13, T18.)Hx preeclampsia & PTD (32 & 35 wk). Morbid obesity BMI 40. Maternal Assessment Ahstoa248 cm Height (ft)5 ft Height (in)3 in Yrgofq850 kg Weight (lb)227 lb BMI40.22 kg/m Method ======= Transabdominal ultrasound examination. View: Adequate view ========= Black . Number of fetuses: 1 Dating ====== Method of dating:based on stated ARIA GA by prior [id number] w + 6 d ARIA by prior assessment:05/28/2025 Ultrasound examination on:04/08/2025 GA by U/S based upon:AC, BPD, Femur, HC GA by U/S31 w + 4 d ARIA by U/S:06/06/2025 Previous dating:based on stated ARIA, selected on 02/25/2025 Agreed ARIA of previous datin05/28/2025 Assigned:based on stated ARIA, selected on 04/08/2025 Assigned GA32 w + 6 d Assigned ARIA:05/28/2025 ighbxc740 d Biometry Standard BPD80.2 mm 32w 1d 24% Hadlock OFD98.4 mm 31w 6d 23% Bella HC287.0 mm 31w 4d 2% Hadlock Cerebellum tr41.5 mm 32w 6d 31% Hill AC273.7 mm 31w 3d 14% Hadlock Femur59.6 mm 31w 0d 5% Hadlock Ehqqcsk65.1 mm 30w 6d 13% Bella HC / AC1.05 EFW1,758 g 31w 0d 9% Hadlock EFW (lb)3 lb EFW (oz)14 oz EFW by:Hadlock (XYY-DH-TZ-FL) Extended Cav. septi pel. tr4.9 mm Vp5.2 mm CM8.0 mm 70% Nicolaides Head / Face / Neck Cephalic index0.82 66% Nicolaides Extremities / Bony Struc FL / BPD0.74 FL / HC0.21 FL / AC0.22 Other Structures UUE513 bpm General Evaluation Cardiac activity present. FHR [...] growth in 3 weeks scheduled Coding ======= Description:42643-23 Follow Up Ultrasound Description:44168-06 BPP without NST Description:56782-82 Doppler Umbilical Artery Addiction Professional: Josephine Gonzales RDMS Physician: Jessica lAejandra MD, FACOG Electronically signed by: Jessica Alejandra MD, FACOG at: 2312:30 Dominick Bentley MD [facility] ORDERABLES Final Result documented in this encounter Visit Diagnoses Diagnosis Abnormal genetic test during Chronic hypertension affecting documented in this encounter Care Teams Casing Worker Relationship Specialty Start Date End Date Provider, [place] [address] PCP - General 01/04/24 documented as of this encounter
--- OUTSIDE RECORDS SUMMARY | 2025-04-08 14:45 | XMS_ITS | Encounter Summary ---
Author Organization [facility] Address [address] [place] [address] Care Team Providers Care Library Circulation Assistant Name Role Phone Provider, No Known Primary Care Provider [phone] Reason for Visit * Reason Comments CHTN, AMA, abn NIPT, MO, hx PreE, IUGR Encounter Details Date Type Department Care Team (Late st Contact Info) Description 04/08/2025 2:45 PM EDT Office Visit [facility] MATERNAL MEDICINE [address] [address] Jessica Alejandra MD [address] [phone] Chronic hypertension affecting (Primary Dx); Antepartum multigravida [...] CVS. Jessica Alejandra MD FACOG Maternal Medicine, [facility] 04/08/2025 documented in this encounter Plan of Treatment Not on file documented as of this encounter Visit Diagnoses Diagnosis Chronic hypertension affecting - Primary Antepartum multigravida of advanced maternal age Abnormal genetic test during Poor growth affecting management of mother in third trimester, single or unspecified fetus documented in this encounter Care Teams Library Circulation Assistant Relationship Specialty Start Date End Date Provider, [place] [address] PCP - General 01/04/24 documented as of this encounter
--- OUTSIDE RECORDS SUMMARY | 2025-04-30 15:18 | XMS_ITS | Encounter Summary ---
[facility] Address [address] [place] [address] Care Team Providers Care Fruit Express Agent Name Role Phone Provider, No Known Primary Care Provider [phone] Reason for Visit * Diagnostic Imaging (Routine) - Canceled Specialty Diagnoses / Procedures Referred By Contac t Referred To Contact Radiology Diagnoses Chronic hypertension affecting Antepartum multigravida of advanced maternal age Poor growth affecting management of mother in third trimester, single or unspecified fetus Procedures US [facility] Bentley, Dominick Silva MD [address] [place] [address] Phone: tel: fax: [facility] DI[facility] [address] [place] [address] Phone: tel: Referral ID Status Reason Start Date Expiration Date V isits Requested Visits Authorized [id number] Canceled 03/25/2025 06/24/2026 3 3 Encounter Details Date Type Department Care Team (Latest Contact Info) Description 04/30/2025 3:18 PM EDT - 04/30/2025 11:59 PM EDT Hospital Encounter [facility] [address] [place] [address] Wilber Bender, DO [address] [facility] [address] [place] [id number] Discharge Disposition: Home or Self Care Social [...] Name Priority Date/Time Associated Diagnosis Comments [facility] Routine 04/30/2025 3:41 PM EDT Chronic hypertension affecting Antepartum multigravida of advanced maternal age Poor growth affecting management of mother in third trimester, single or unspecified fetus documented in this encounter Results * [facility] (04/30/2025 3:41 PM EDT) Anatomical Region Laterality Modality Ultrasound 04/30/2025 3:28 PM EDT Narrative 04/30/2025 3:55 PM EDT PAT NAME: SHIVAM BERNARD REC#: [id number] DA: [id number] PAT GEND: F PAT TYPE: O EXAM ALIREZA: [id number] REF PHYS WILBER BENDER Comparison Studies The findings of this study are compared to the prior ultrasound study dated 04/08/25 Patient Status Outpatient Indication ======== AMA. CHTN. Follow up IUGR. Abnormal NIPT (high risk triploidy, T13, T18.) Hx preeclampsia & PTD (32 & 35 wk). Morbid obesity BMI 41. Maternal Assessment Height 160 cm Height (ft) 5 ft Height (in) 3 in Weight 105 kg Weight (lb) 232 lb BMI 41.11 kg/m Method ======= Transabdominal ultrasound examination. View: Suboptimal view: limited by late gestational age ========= Black . Number of fetuses: 1 Dating ====== Method of dating: based on stated ARIA GA by prior assessment 36 w + 0 d ARIA by prior assessment: 05/28/2025 Ultrasound examination on: 04/30/2025 GA by U/S based upon: AC, BPD, Femur, HC GA by U/S 34 w + 1 d ARIA by U/S: 06/10/2025 Previous dating: based on stated ARIA, selected on 04/08/2025 Agreed ARIA of previous datin05/28/2025 Assigned: based on stated ARIA, selected on 04/30/2025 Assigned GA 36 w + 0 d Assigned ARIA: 05/28/2025 length 280 d Biometry Standard BPD 84.9 mm 34w 1d 13% Hadlock OFD 105.1 mm 34w 4d 18% Bella HC 303.8 mm 33w 5d <1% Hadlock AC 301.8 mm 34w 1d 12% Hadlock Femur 66.7 mm 34w 2d 10% Hadlock Humerus 59.3 mm 34w 3d 29% Bella HC / AC 1.01 EFW 2,363 g 34w 0d 11% Hadlock EFW (lb) 5 lb EFW (oz) 3 oz EFW by: Hadlock (OIU-TB-LN-FL) Extended Cav. septi pel. tr 5.3 mm Sales Administration Manager 6.3 mm Head / Face / Neck Cephalic index 0.81 44% Nicolaides Extremities / Bony Struc FL / BPD 0.79 FL / HC 0.22 FL / AC 0.22 Other Structures FHR 161 bpm General Evaluation Cardiac activity present. FHR 161 bpm. movements present. Presentation cephalic. Placenta Placental site: posterior. Umbilical cord Cord vessels: 3 vessel cord. Amniotic fluid Amount of AF: normal. MVP 6.3 cm. BHAVYA 17.6 cm. Q1 6.3 cm, Q2 2.4 cm, Q3 2.9 cm, Q4 6.1 cm. Anatomy Cranium: Normal Cavum septi pellucidi: Normal Head / Neck Rt lateral ventricle: Normal Lt lateral ventricle: Normal Lips: Normal 4-chamber view: Appears normal Heart / Thorax 6-dpviug-gkuzibz view: Appears normal Cord insertion: Normal Stomach: Appears normal Kidneys: Appears normal Bladder: Appears normal Gender: female Wants to know gender: yes Doppler Arterial Umbilical A PI 1.09 90% Yang Umbilical A RI 0.70 94% Yang Umbilical A PS -40.30 cm/s Umbilical A ED -12.19 cm/s Umbilical A TAmax -25.78 cm/s Umbilical A MD -9.05 cm/s Umbilical A S / D 3.31 91% Yang Biophysical Profile 2: breathing movements 2: Gross body movements 2: tone 2: Amniotic fluid volume 04/25 Biophysical profile score Impression Today's exam reveals a SIUP in cephalic presentation with biometry consistent with dates. Limited anatomic survey appears normal. The BHAVYA and BPP are normal. Recommendation Follow-up as clinically indicated. Coding ======= Description: 08716-21 Follow Up Ultrasound Description: 20520-11 BPP without NST Description: 67701-53 Doppler Umbilical Artery Care Asst: RT Minerva Salmon , [facility] Physician: Jessica Alejandra MD, FACOG Electronically signed by: Jessica Alejandra MD, FACOG at: 15:55 Procedure Note Jessica Alejandra MD - 04/30/2025 PAT NAME: SHIVAM BERNARD MED REC#: [id number] DA: [id number] PAT GEND: F PAT TYPE: O EXAM ALIREZA: [id number] REF PHYS WILBER BENDER Comparison Studies The findings of this study are compared to the prior ultrasound studydated 04/08/25 Patient Status Outpatient Indication ======== AMA. CHTN. Follow up IUGR. Abnormal NIPT (high risk triploidy, T13, T18.)Hx preeclampsia & PTD (32 & 35 wk). Morbid obesity BMI 41. Maternal Assessment Wsbtdk174 cm Height (ft)5 ft Height (in)3 in Qxtlxt937 kg Weight (lb)232 lb BMI41.11 kg/m Method ======= Transabdominal ultrasound examination. View: Suboptimal view: limited bylate gestational age ========= Black . Number of fetuses: 1 Dating ====== Method of dating:based on stated ARIA GA by prior [id number] w + 0 d ARIA by prior assessment:05/28/2025 Ultrasound examination on:04/30/2025 GA by U/S based upon:AC, BPD, Femur, HC GA by U/S34 w + 1 d ARIA by U/S:06/10/2025 Previous dating:based on stated ARIA, selected on 04/08/2025 Agreed ARIA of previous datin05/28/2025 Assigned:based on stated ARIA, selected on 04/30/2025 Assigned GA36 w + 0 d Assigned ARIA:05/28/2025 [id number] d Biometry Standard BPD84.9 mm 34w 1d 13% Hadlock HSI972.1 mm 34w 4d 18% Bella HC303.8 mm 33w 5d <1% Hadlock AC301.8 mm 34w 1d 12% Hadlock Femur66.7 mm 34w 2d 10% Hadlock Cxdtmnw72.3 mm 34w 3d 29% Bella HC / AC1.01 EFW2,363 g 34w 0d 11% Hadlock EFW (lb)5 lb EFW (oz)3 oz EFW by:Hadlock (KFE-GY-CB-FL) Extended Cav. septi pel. tr5.3 mm Vp6.3 mm Head / Face / Neck Cephalic index0.81 44% Nicolaides Extremities / Bony Struc FL / BPD0.79 FL / HC0.22 FL / AC0.22 Other Structures BCV185 bpm General Evaluation Cardiac activity present. FHR 161 bpm. movements present. Presentation cephalic. Placenta Placental site: posterior. Umbilical cord Cord vessels: 3 vessel cord. Amniotic fluid Amount of AF: normal. MVP 6.3 cm. BHAVYA 17.6 cm. Q1 6.3 cm,Q2 2.4 cm, Q3 2.9 cm, Q4 6.1 cm. Anatomy Cranium:Normal Cavum septi pellucidi:Normal Head / Neck Rt lateral ventricle:Normal Lt lateral ventricle:Normal Lips:Normal 4-chamber view:Appears normal Heart / Thorax 3-afleni-rvqltpd view:Appears normal Cord insertion:Normal Stomach:Appears normal Kidneys:Appears normal Bladder:Appears normal Gender:female Wants to know gender:yes Doppler Arterial Umbilical A PI1.09 90% Yang Umbilical A RI0.70 94% Yang Umbilical A PS-40.30 cm/s Umbilical A ED-12.19 cm/s Umbilical A TAmax-25.78 cm/s Umbilical A MD-9.05 cm/s Umbilical A S / D3.31 91% Yang Biophysical Profile 2: breathing movements 2: Gross body movements 2: tone 2: Amniotic fluid volume 04/25 Biophysical profile score Impression Today's exam reveals a SIUP in cephalic presentation with biometryconsistent with dates. Limited anatomic survey appears normal. TheAFI and BPP are normal. Recommendation Follow-up as clinically indicated. Coding ======= Description:31608-79 Follow Up Ultrasound Description:05545-92 BPP without NST Description:33829-86 Doppler Umbilical Artery Care Asst: RT Minerva Salmon , [facility] Physician: Jessica Alejandra MD, FACOG Electronically signed by: Jessica Alejandra MD, FACOG at: /1315:55 us Dominick Bentley MD IMG US ORDERABLES Final Result documented in this encounter Visit Diagnoses Not on filedocumented in this encounter Care Teams Fruit Express Agent Relationship Specialty Start Date End Date Provider, [place] [address] PCP - General 01/04/24 documented as of this encounter
--- OUTSIDE RECORDS SUMMARY | 2025-04-30 15:30 | XMS_ITS | Encounter Summary ---
[facility] Address [address] [place] [address] Care Team Providers Care Criminal Justice Instructor Name Role Phone Provider, No Known Primary Care Provider [phone] Reason for Visit * Reason Comments AMA; MO; CHTN; abnormal NIPT; hx preecla mpsia; IUGR Encounter Details Date Type Department Care Team (Late st Contact Info) Description 04/30/2025 3:30 PM EDT Office Visit [facility] MATERNAL MEDICINE [address] [address] Jessica Alejandra MD [address] [place] [phone] Chronic hypertension affecting (Primary Dx) Social History [...] [facility] Jessica Alejandra MD FACOG Maternal Medicine, [facility] 04/30/2025 documented in this encounter Plan of Treatment Not on file documented as of this encounter Visit Diagnoses Diagnosis Chronic hypertension affecting - Primary documented in this encounter Care Teams Criminal Justice Instructor Relationship Specialty Start Date End Date Provider, [place] [address] PCP - General 01/04/24 documented as of this encounter
--- OUTSIDE RECORDS SUMMARY | 2025-05-16 12:11 | XMS_ITS | Encounter Summary ---
Author Organization [employer] ([place], [place], [place], [place]) Address [address] [place] [address] Care Team Providers Care Track Laying Machine Operator Name Role Phone Unavailable Primary Care Provider Unavailabl e Encounter Details Date Type Department Care Team (Late st Contact Info) Description 10/11/2018 Transcribed Document [facility] [place] Family Medicine [place] [address] ProviderChula MD [address] [place] [address] Social History Tobacco Use Types [...] - Historical ProviderMD - 10/11/2018 6:12 AM AGRICULTURAL ENGINEERING TEACHER Pediatric Growth Entered On: 10/11/2018 6:12 EST Performed On: 10/11/2018 6:12 EST by Michelle Le Patient Core Sucker Height and Weight, Clinical Dosing Height Source : Stated Height Entry Format : [place] Height, Feet : 5 ft(Converted to: 152 cm, 60 Inch) Height, Inches : 4 Inch(Converted to: 0 ft 4 Inch, 10.16 cm) Clinical Height : 162.56 cm Weight Source : Standing scale Weight Entry Format : [place] Clinical Dosing Weight : 87.73 kg Weight, Pounds : 193 lb Body Surface Area (BSA) : 1.93 m2 Body Mass Index : 33.2 kg/m2 (HI) [place] Body Weight : 54 kg Michelle Le Patient Core Sucker - 10/11/2018 6:12 EST Electronically signed by Hanane [facility] Conversion Reservoir Engineer Cerner at 01/06/2023 5:04 PM CDT documented in this encounter Plan of Treatment Not on file documented as of this encounter Visit Diagnoses Not on filedocumented in this encounter
--- OUTSIDE RECORDS SUMMARY | 2025-05-16 12:11 | XMS_ITS | Encounter Summary ---
Author Organization [employer] ([place], [place], [place], [place]) Address [address] [place] [address] Care Team Providers Care Farmworker Field Crop Name Role Phone Unavailable Primary Care Provider Unavailabl e Encounter Details Date Type Department Care Team (Late st Contact Info) Description 10/11/2018 Transcribed Document [facility] [place] Family Medicine [facility] [place] [address] ProviderChula MD [address] [place] [address] Social History Tobacco Use Types [...] - Historical ProviderMD - 10/11/2018 7:31 AM DOCUMENT CONTROL ASSOCIATE Event Note Entered On: 10/11/2018 7:33 EST [...]
--- OUTSIDE RECORDS SUMMARY | 2025-05-16 12:11 | XMS_ITS | Encounter Summary ---
Author Organization [employer] ([place], [place], [place], [place]) Address [address] [place] [address] Care Team Providers Care Mortar Worker Name Role Phone Unavailable Primary Care Provider Unavailabl e Encounter Details Date Type Department Care Team (Late st Contact Info) Description 10/11/2018 Transcribed Document [facility] [place] Family Medicine [facility] [place] [address] ProviderChula MD [address], [place] [id number] Social History Tobacco Use Types Packs/Day Years [...] - Historical ProviderMD - 10/11/2018 7:35 AM UNIT OPERATOR Event Note Entered On: 10/11/2018 7:37 [...]
--- OUTSIDE RECORDS SUMMARY | 2025-05-16 12:11 | XMS_ITS | Encounter Summary ---
Author Organization [employer] ([place], [place], [place], [place]) Address [address] [place] [address] Care Team Providers Care Flight Superintendent Name Role Phone Unavailable Primary Care Provider Unavailabl e Encounter Details Date Type Department Care Team (Late st Contact Info) Description 10/11/2018 Transcribed Document [facility] [place] Family Medicine [facility] [place] [address] ProviderChula MD [address] [place] [address] Social History Tobacco Use Types [...] - Chula ProviderMD - 10/11/2018 9:28 AM EMERGENCY RESPONSE TECHNICIAN DATE OF PROCEDURE: 10/11/2018 ORTHOPEDIC OPERATIVE NOTE PREOPERATIVE DIAGNOSIS(ES): Right L5-S1 herniated nucleus pulposus. POSTOPERATIVE DIAGNOSIS(ES): Right L5-S1 herniated nucleus pulposus. PROCEDURE: Right L5-S1 microdiscectomy, CPT code-84627. SURGEON: Chase Recinos MD GENERAL PRODUCTION WORKER: Benjy. COMPLICATIONS: None. SPECIMENS: None. IMPLANTS: None. ESTIMATED BLOOD LOSS: 25 mL. DESCRIPTION OF PROCEDURE: Patient was identified in the holding area at [facility], transferred to the operative room [...]
--- OUTSIDE RECORDS SUMMARY | 2025-05-16 12:11 | XMS_ITS | Encounter Summary ---
Author Organization [employer] ([place], [place], [place], [place]) Address [address] [place] [address] Care Team Providers Care Club Licensee Name Role Phone Unavailable Primary Care Provider Unavailabl e Encounter Details Date Type Department Care Team (Late st Contact Info) Description 10/11/2018 Transcribed Document [facility] [place] [facility] [place] [address] ProviderChula MD [address] [place] [address] Social History Tobacco Use Types [...] - Historical ProviderMD - 10/11/2018 6:33 AM MACHINE CLIPPER Pre Procedure Adult Entered On: 10/11/2018 6:47 EST Performed On: 10/11/2018 6:33 EST by Naa Alonso Nurse - denise Height and Weight, Clinical Dosing Height Source : Stated Height Entry Format : Delta Height, Feet : 5 ft(Converted to: 152 cm, 60 Inch) Height, Inches : 4 Inch(Converted to: 0 ft 4 Inch, 10.16 cm) Clinical Height : 162.56 cm Weight Source : Standing scale Weight Entry Format : Delta Clinical Dosing Weight : 87.73 kg Weight, Pounds : 193 lb Body Surface Area (BSA) : 1.93 m2 Body Mass Index : 33.2 kg/m2 (HI) Lyons Body Weight : 54 kg Naa Alonso [...] Obtained From : Patient Primary Language : Maltese Preferred Communication Mode : Verbal Communication Barrier [...] Scale Risk Level : 0-24 Low Risk Chisholm Fall Interventions : Adequate lighting, Call device [...]
--- OUTSIDE RECORDS SUMMARY | 2025-05-16 12:11 | XMS_ITS | Clinical Summary ---
Author Organization [facility] Address [address] [place] [address] Care Team Providers Care Egg Pasteurizer Name Role Phone Provider, No Known Primary Care Provider [phone] Allergies No known active allergies Medications amLODIPine [...] given her abnormal NIPT this could be commissary representative of that testing. As of note [...] that CMV testing was performed with primary CHIP TESTER and she said that the IgM was positive and that the antibody was high though we do not have records of this. This could be indicative of IgM with high avidity which could be commissary representative of new infection though patient states [...] [facility] [address] [address] Jessica Alejandra MD Chronic hypertension affecting (Primary Dx) 04/30/2025 3:18 PM EDT - 04/30/2025 11:59 PM EDT Hospital Encounter [facility] [address] [place] [address] Wilber Bender DO Discharge Disposition: Home or Self Care 04/30/2025 Travel 04/08/2025 2:45 PM EDT Office Visit [facility] [address] [address] Jessica Alejandra MD Chronic hypertension affecting (Primary Dx); Antepartum multigravida of advanced maternal age; Abnormal genetic test during ; Poor growth affecting management of mother in third trimester, single or unspecified fetus 04/08/2025 2:33 PM EDT - 04/08/2025 11:59 PM EDT Hospital Encounter [facility] [address] [place] [address] Dominick Bentley MD Abnormal genetic test during ; Chronic hypertension affecting Discharge Disposition: Home or Self Care 04/08/2025 Travel 03/25/2025 3:00 PM EDT Office Visit [facility] [address] [phone] Dominick Bentley MD Poor growth affecting management of mother in third trimester, single or unspecified fetus (Primary Dx); Chronic hypertension affecting ; Antepartum multigravida of advanced maternal age; Abnormal genetic test during 03/25/2025 3:00 PM EDT - 03/25/2025 11:59 PM EDT Hospital Encounter [facility] [address] [place] [address] Wilber Bender DO Discharge Disposition: Home or Self Care 03/25/2025 Travel 02/25/2025 2:15 PM EDT Office Visit [facility] [address] [phone] Jessica Alejandra MD Antepartum multigravida of advanced maternal age (Primary Dx); Chronic hypertension affecting 02/25/2025 2:00 PM EDT - 02/25/2025 11:59 PM EDT Hospital Encounter [facility] [address] [place] [address] Wilber Bender DO Discharge Disposition: Home or [...] Delivery Comme nts Yes 05/28/2025 Date entered acio or to episode creation Sex and Gender [...] Procedure Name Priority Date/Time Associated Diagnosis Comments [facility] Routine 04/30/2025 3:41 PM EDT Chronic hypertension affecting Antepartum multigravida of advanced maternal age Poor growth affecting management of mother in third trimester, single or unspecified fetus [facility] Routine 04/08/2025 3:27 PM EDT Abnormal genetic test during Chronic hypertension affecting [facility] Routine 03/25/2025 3:56 PM EDT Abnormal genetic test during Chronic hypertension affecting [facility] Routine 02/25/2025 2:41 PM EDT Abnormal genetic test during Chronic hypertension affecting HEMOGLOBIN A1C Routine 01/08/2024 8:54 AM EDT Blighted ovum from Last 3 Months or Most Recently Relevant to Health Maintenance Results * [facility] (04/30/2025 3:41 PM EDT) Only the most recent of4 resultswithin the time period is included. Anatomical Region Laterality Modality Ultrasound 04/30/2025 3:28 PM EDT Narrative 04/30/2025 3:55 PM EDT PAT NAME: SHIVAM BERNARD MED REC#: [id number] DA: [id number] PAT GEND: F PAT TYPE: O EXAM ALIREZA: [id number] REF PHYS WILBER BENDER Comparison Studies The [...] EFW (oz) 3 oz EFW by: Hadlock ([id number]-FL) Extended Cav. septi pel. tr 5.3 mm Criminal Intelligence Specialist 6.3 mm Head / Face / Neck [...] 4-chamber view: Appears normal Heart / Thorax 9-kmwjeu-uopzvyi view: Appears normal Cord insertion: Normal Stomach: [...] Follow-up as clinically indicated. Coding ======= Description: 30175-48 Follow Up Ultrasound Description: 81105-04 BPP without NST Description: 29067-61 Doppler Umbilical Artery Acoustical Carpenter: RT Minerva Salmon , [facility] Physician: Jessica Alejandra MD, FACOG Electronically signed by: Jessica Alejandra MD, FACOG at: 15:55 Procedure Note Jessica Alejandra MD - 04/30/2025 PAT NAME: SHIVAM BERNARD MED REC#: [id number] DA: [id number] PAT GEND: F PAT TYPE: O EXAM ALIREZA: [id number] REF PHYS WILBER BENDER Comparison Studies The findings of this study are compared to the prior ultrasound studydated 04/08/25 Patient Status Outpatient Indication ======== AMA. CHTN. Follow up IUGR. Abnormal NIPT (high risk triploidy, T13, T18.)Hx preeclampsia & PTD (32 & 35 wk). Morbid obesity BMI 41. Maternal Assessment Otybco715 cm Height (ft)5 ft Height (in)3 in Llkdfm848 kg Weight (lb)232 lb BMI41.11 kg/m Method ======= Transabdominal ultrasound examination. View: Suboptimal view: limited bylate gestational age ========= Black . Number of fetuses: 1 Dating ====== Method of dating:based on stated ARIA GA by prior sdbwksjstu20 w + 0 d ARIA by prior assessment:05/28/2025 Ultrasound examination on:04/30/2025 GA by U/S based upon:AC, BPD, Femur, HC GA by U/S34 w + 1 d ARIA by U/S:06/10/2025 Previous dating:based on stated ARIA, selected on 04/08/2025 Agreed ARIA of previous datin05/28/2025 Assigned:based on stated ARIA, selected on 04/30/2025 Assigned GA36 w + 0 d Assigned ARIA:05/28/2025 d Biometry Standard BPD84.9 mm 34w 1d 13% Hadlock FSG809.1 mm 34w 4d 18% Bella HC303.8 mm 33w 5d <1% Hadlock AC301.8 mm 34w 1d 12% Hadlock Femur66.7 mm 34w 2d 10% Hadlock Zqvdmvh37.3 mm 34w 3d 29% Bella HC / AC1.01 EFW2,363 g 34w 0d 11% Hadlock EFW (lb)5 lb EFW (oz)3 oz EFW by:Hadlock ([id number]-[id number]-FL) Extended Cav. septi pel. tr5.3 mm Vp6.3 mm Head / Face / Neck Cephalic index0.81 44% Nicolaides Extremities / Bony Struc FL / BPD0.79 FL / HC0.22 FL / AC0.22 Other Structures ZPJ126 bpm General Evaluation Cardiac activity present. FHR [...] Lips:Normal 4-chamber view:Appears normal Heart / Thorax 1-vbhlhj-bovmvqz view:Appears normal Cord insertion:Normal Stomach:Appears normal Kidneys:Appears [...] Recommendation Follow-up as clinically indicated. Coding ======= Description:36216-53 Follow Up Ultrasound Description:61660-25 BPP without NST Description:14273-89 Doppler Umbilical Artery Acoustical Carpenter: RT Minerva Salmon , [facility] Physician: Jessica Alejandra MD, FACOG Electronically [...] 01/09/2024 8:16 AM EDT Performed at: 01 [facility] [place] [id number] Inspector Plumbing: Kevin Staley MD, Phone: [phone] Patient Fasting: N us Caleb Alves MD LAB BLOOD ORDERABLES Fin al Result [facility] ([facility]AT[facility]) [address] [place] [address], [facility] [address] [place] [address], from Last 3 Months or Most Recently Relevant to Health Maintenance [place] [address] [place] [address] Care Teams Egg Pasteurizer Relationship Specialty Start Date End Date Provider, [place] [address] PCP - General 01/04/24
--- OUTSIDE RECORDS SUMMARY | 2025-05-16 12:11 | XMS_ITS | Encounter Summary ---
Author Organization [employer] ([place], [place], [place], [place]) Address [address] [place] [address] Care Team Providers Care Wraparound Facilitator Name Role Phone Unavailable Primary Care Provider Unavailabl e Encounter Details Date Type Department Care Team (Late st Contact Info) Description 10/11/2018 Transcribed Document [facility] [place] [facility] [place] [address] ProviderChula MD [address] [place] [address] Social History Tobacco Use Types [...] - Chula ProviderMD - 10/11/2018 8:13 AM GAS APPLIANCE MECHANIC E Main OR PACU Summary Primary Physician: JUANY PRICE MD Finalized Date/Time: 10/11/18 11:43:57 Pt. Name: SHIVAM BERNARD D.O.B./Sex: 1985 Female Med Rec #: [id number] Physician: JUANY PRICE MD Financial #: [id number] Pt. Type: O Room/Bed: [facility] Admit/Disch: 10/11/18 04:54:00 - [place] [facility] [place] Case Times [...] RN 10/11/18 11:43 Electronically signed by Hanane [facility] Conversion Block Chopper Hand Cerner at 01/06/2023 4:48 PM CDT documented in this encounter Plan of Treatment Not on file documented as of this encounter Visit Diagnoses Not on filedocumented in this encounter
--- OUTSIDE RECORDS SUMMARY | 2025-05-16 12:11 | XMS_ITS | Encounter Summary ---
Author Organization [employer] ([place], [place], [place], [place]) Address [address] [place] [address] Care Team Providers Care Rod Straightener Name Role Phone Unavailable Primary Care Provider Unavailabl e Encounter Details Date Type Department Care Team (Late st Contact Info) Description 10/11/2018 Transcribed Document [facility] Family Medicine [facility] [place] [address] ProviderChula MD [address] [place] [address] Social History Tobacco Use Types [...] - Chula ProviderMD - 10/11/2018 8:13 AM GRIT BLASTER POLINA Main OR PreOp Summary Primary Physician: JUANY PRICE MD Finalized Date/Time: 10/11/18 10:17:21 Pt. Name: SHIVAM BERNARD D.O.B./Sex: 1985 Female Med Rec #: [id number] Physician: JUANY PRICE MD Financial #: [id number] Pt. Type: O Room/Bed: [facility] Admit/Disch: 10/11/18 04:54:00 - [place] [facility] [place] Case Times Entry 1 In Preop 10/11/18 05:30:00 Ready for Holding n/a Room Patient Ready for 10/11/18 06:47:00 Surgery Patient Out of Preop 10/11/18 07:35:00 Patient Out of n/a Holding Room Last Modified By: CYNDI LEONARD 10/11/18 10:17:20 [facility] PreOp Case Times Audit 10/11/18 10:17:20 Manager Labor Delivery: MANDOINMARCK Modifier: [email or web address] <+> 1 Patient Out of Preop 10/11/18 06:47:33 Manager Labor Delivery: CRAINMA Modifier: CRAINMA <+> 1 Patient Ready for Surgery Finalized By: CYNDI LEONARD Document Signatures Signed By: CYNDI LEONARD 10/11/18 10:17 documented in this encounter Plan of Treatment Not on file documented as of this encounter Visit Diagnoses Not on filedocumented in this encounter
--- OUTSIDE RECORDS SUMMARY | 2025-05-16 12:11 | XMS_ITS | Encounter Summary ---
Author Organization [employer] ([place], [place], [place], [place]) Address [address] [place] [address] Care Team Providers Care Medical Care Manager Name Role Phone Unavailable Primary Care Provider Unavailabl e Encounter Details Date Type Department Care Team (Late st Contact Info) Description 10/11/2018 Transcribed Document [facility] [place] [facility] [place] [address] ProviderChula MD [address] [place] [address] Social History Tobacco Use Types [...] - Chula ProviderMD - 10/11/2018 8:13 AM FISCAL SPECIALIST POLINA Main OR IntraOp Summary Primary Physician: JUANY PRICE MD Finalized Date/Time: 10/11/18 09:39:55 Pt. Name: SUNIL BERNARDLONNIE Acevedo /Sex: 1985 Female Med Rec #: [id number] Physician: JUANY PRICE MD Financial #: [id number] Pt. Type: O Room/Bed: [facility] Admit/Disch: 10/11/18 04:54:00 - Institution: [facility] [place]Op Case Attendance Entry 1 Entry 2 Entry 3 Case Attendee JUANY PRICE MD BRUNNER, RICHARD V, Chelsey Bran Rn-Surgery Role Performed Surgeon/Proceduralist, MONOLOGIST/Nurse Record Librarian Corporate Legal Intern, First First Time In 10/11/18 07:39:00 10/11/18 [...] BRUNER, HAVEN Role Performed Scrub, First Physician clinical trial assistant Atv Mechanic Time In 10/11/18 07:39:00 10/11/18 07:39:00 [...] CRUZ, RN [address] ST Role Performed Corporate Legal Intern, Second Scrub, Second Time In 10/11/18 08:48:00 10/11/18 09:02:00 Time Out 10/11/18 09:02:00 10/11/18 09:33:00 Procedure Lumbar Microdiscectomy Lumbar Microdiscectomy Other Attendee Superficial Wound Closed By: Last Modified By: Chelsey Mae Demike, Cynthia Y, Rn-Surgery 10/11/18 Rn-Surgery 10/11/18 09:33:47 09:33:47 [facility] IntraOp Case Attendance Audit 10/11/18 09:33:47 Induction Coordination Engineer: [id number] Modifier: [id number] 1 <*> Procedure Lumbar Microdiscectomy 2 <+> [...] 8 <*> Procedure Lumbar Microdiscectomy 10/11/18 09:21:03 Induction Coordination Engineer: [id number] Modifier: [id number] 1 <+> Time Out 1 <*> Procedure Lumbar Microdiscectomy 10/11/18 09:04:27 Induction Coordination Engineer: [id number] Modifier: [id number] <+> 1 Procedure 2 <*> Procedure Lumbar Microdiscectomy 3 <*> Procedure Lumbar Microdiscectomy 4 <*> Procedure Lumbar Microdiscectomy 5 <*> Procedure Lumbar Microdiscectomy 6 <*> Procedure Lumbar Microdiscectomy 7 <*> Procedure Lumbar Microdiscectomy 8 <*> Procedure Lumbar Microdiscectomy 10/11/18 09:04:05 Induction Coordination Engineer: [id number] Modifier: [id number] <+> 7 Case Attendee <+> 7 Role Performed <+> 7 Time In <+> 7 Time Out <+> 7 Procedure <+> 8 Case Attendee <+> 8 Role Performed <+> 8 Time In <+> 8 Procedure 10/11/18 08:29:38 Induction Coordination Engineer: [id number] Modifier: [id number] 2 <*> Procedure Lumbar Microdiscectomy 3 <*> Procedure Lumbar Microdiscectomy 4 <*> Procedure Lumbar Microdiscectomy 5 <*> Procedure Lumbar Microdiscectomy 6 <+> Time In 6 <*> Procedure Lumbar Microdiscectomy 10/11/18 08:24:25 Induction Coordination Engineer: [id number] Modifier: [id number] 2 <*> Procedure Lumbar Microdiscectomy 3 <*> Procedure Lumbar Microdiscectomy 4 <*> Procedure Lumbar Microdiscectomy 5 <+> Time In 5 <*> Procedure Lumbar Microdiscectomy <+> 6 Case Attendee <+> 6 Role Performed <+> 6 Procedure 10/11/18 08:13:49 Induction Coordination Engineer: [id number] Modifier: [id number] <+> 1 Time In 2 <+> Time [...] [facility] IntraOp Case Times Audit 10/11/18 09:33:44 Induction Coordination Engineer: [id number] Modifier: [id number] <+> 1 Out Room Time <+> 1 Stop Time 10/11/18 09:33:20 Induction Coordination Engineer: [id number] Modifier: [id number] <+> 1 Stop Time 10/11/18 08:13:56 Induction Coordination Engineer: [id number] Modifier: [id number] <+> 1 Start Time [facility] IntraOp Cautery [...] 08:35:57 [facility] IntraOp Cautery Audit 10/11/18 08:35:57 Induction Coordination Engineer: [id number] Modifier: [id number] 1 <*> Grounding Pad Site Right Lower [...] [facility] IntraOp Counts Final Audit 10/11/18 09:21:17 Induction Coordination Engineer: [id number] Modifier: [id number] 1 <*> Procedure Lumbar Microdiscectomy 1 <+> [...] Rn-Surgery 10/11/18 08:26:46 S[facility] IntraOp General Case Velocity Shooter 1 Case Information OR OR 01 SJE [...] Avitene 1Gm powder - Marcaine 0.25% 30ml [id number] vial - [id number] Combo Med List Time Administered Route of [...] Intra Op Sign Out Audit 10/11/18 09:39:50 Induction Coordination Engineer: [id number] Modifier: [id number] <+> 1 RN Sign Out Signature Date/Time [...] [facility] IntraOp Surgical Procedures Audit 10/11/18 09:33:24 Induction Coordination Engineer: [id number] Modifier: [id number] 1 <*> Procedure Lumbar Microdiscectomy 1 <+> Stop 10/11/18 09:21:35 Induction Coordination Engineer: [id number] Modifier: [id number] 1 <*> Procedure Lumbar Microdiscectomy 1 <+> Specialty 10/11/18 09:04:26 Induction Coordination Engineer: [id number] Modifier: [id number] <+> 1 Primary Procedure <+> 1 Primary Surgeon <+> 1 Start <+> 1 Wound Class <+> 1 Anesthesia Type <+> 1 Additional Procedure Description [facility] IntraOp Temp Regulation Devices Entry 1 Temp Regulation Temperature Forced Air Warming Regulation Device device Temperature Upper body Regulation Site Temperature Device 43 Setting Temperature CARLTON HARKINS V MONOLOGIST Regulation Device Applied by Last Modified By: [...] [facility] IntraOp Time Out Audit 10/11/18 08:33:51 Induction Coordination Engineer: [id number] Modifier: [id number] 1 <+> Beta Thalia Administered 1 <+> [...] 10/11/18 09:39 Electronically signed by Hanane [facility] Conversion Transactional Attorney Cerner at 01/06/2023 4:42 PM CDT documented in this encounter Plan of Treatment Not on file documented as of this encounter Visit Diagnoses Not on filedocumented in this encounter
--- OUTSIDE RECORDS SUMMARY | 2025-05-16 12:11 | XMS_ITS | Encounter Summary ---
Author Organization [employer] ([place], [place], [place], [place]) Address [address] [place] [address] Care Team Providers Care Rn Hospital Name Role Phone Unavailable Primary Care Provider Unavailabl e Encounter Details Date Type Department Care Team (Late st Contact Info) Description 10/11/2018 Transcribed Document [facility] [place] [facility] [place] [address] ProviderChula MD [address] [place] [address] Social History Tobacco Use Types [...] - Chula ProviderMD - 10/11/2018 8:13 AM FOREMAN SHIPPING DEPARTMENT [place] Main OR PostOp Summary Primary Physician: JUANY PRICE MD Finalized Date/Time: 10/11/18 13:49:18 Pt. Name: SHIVAM BERNARD D.O.B./Sex: 1985 Female Med Rec #: [id number] Physician: JUANY PRICE MD Financial #: [id number] Pt. Type: O Room/Bed: [facility] Admit/Disch: 10/11/18 04:54:00 - Institution: [facility] [place] PostOp Case Times Entry 1 In PACU II 10/11/18 11:36:00 Ready for PACU II 10/11/18 13:44:00 Discharge Discharge from PACU 10/11/18 13:44:00 II Last Modified By: Elba Ram Rn 10/11/18 13:49:17 SJCarole Main OR PostOp Case Times Audit 10/11/18 13:49:17 Automation Lead: STEPH Modifier: [email or web address] <+> 1 Ready for PACU II Discharge <+> 1 Discharge from PACU II Finalized By: Elba Ram, Rn Document Signatures Signed By: Elba Ram Rn 10/11/18 13:49 Electronically signed by Hanane [facility] Conversion Coloring Machine Operator Cerner at 01/06/2023 5:02 PM CDT documented in this encounter Plan of Treatment Not on file documented as of this encounter Visit Diagnoses Not on filedocumented in this encounter
--- OUTSIDE RECORDS SUMMARY | 2025-05-16 12:11 | XMS_ITS | Encounter Summary ---
Author Organization [employer] ([place], [place], [place], [place]) Address [address] [place] [address] Care Team Providers Care Cardiac Rn Name Role Phone Unavailable Primary Care Provider Unavailabl e Encounter Details Date Type Department Care Team (Late st Contact Info) Description 10/11/2018 Transcribed Document [facility] [place] [facility] [place] [address] ProviderChula MD [address] [place] [address] Social History Tobacco Use Types [...] - Historical ProviderMD - 10/11/2018 8:12 AM FLAT SORTING MACHINE CLERK Peripheral Nerve Block Entered On: 10/11/2018 8:13 [...] - 10/11/2018 8:12 EST Electronically signed by [facility] Conversion Pediatric Hospitalist Cerner at 01/06/2023 4:48 PM CDT documented in this encounter Plan of Treatment Not on file documented as of this encounter Visit Diagnoses Not on filedocumented in this encounter
--- OUTSIDE RECORDS SUMMARY | 2025-05-16 12:12 | XMS_ITS | Referral Summary ---
Author Organization [employer] ([place], [place], [place], [place]) Address [address] [place] [address] Care Team Providers Care Enterprise Sales Person Name Role Phone Unavailable Primary Care Provider [...]
--- OUTSIDE RECORDS SUMMARY | 2025-05-16 12:12 | XMS_ITS | Clinical Summary ---
Author Organization [facility] Address [address] [place] [address] Care Team Providers Care Convolute Tube Winder Name Role Phone Rosemary Fuller Primary Care [...] Tdap) 09/12/2023 09/12/2013 Colonoscopy 12/29/2023 12/29/2021, 11/13/2019 [id number] Vaccine ( - season) 2024 UKY-Depression Screening [...] RN Endo Nurse Roberto Carlos Davis CRNA CHASSIS DRIVER, No role selected Kell Carrera RN Endo Nurse Mady Alvarez Endo Nurse James Morales MD Anesthesiologist MD Daniel Dinero MD Proceduralist Agriculture Laborer Unknown Endo Nurse 1 Endo Nurse Preprocedure [...] of bowel preparation was evaluated using the [place] Bowel Preparation Scale with scores of: right [...] were documented in this log. Findings Healthy baep-cu-xfuk ileocolonic anastomosis with no bleeding The rectum [...] <6.0% Children and Adolescents <7.5% . Source: [place] [employer]. Standards of medical care in [...] Insurance [employer] Care Teams Convolute Tube Winder Relationship Specialty Start Date End Date Rosemary Fuller PA [address] [place] [address] PCP - General 01/29/21
--- OUTSIDE RECORDS SUMMARY | 2025-05-16 12:12 | XMS_ITS | Encounter Summary ---
Author Organization [employer] ([place], [place], [place], [place]) Address [address] [place] [address] Care Team Providers Care Vacuum Cleaner Operator Name Role Phone Unavailable Primary Care Provider Unavailabl e Encounter Details Date Type Department Care Team (Late st Contact Info) Description 09/27/2018 Transcribed Document [facility] [place] [facility] [place] [address] ProviderChual MD [address] [place] [address] Social History Tobacco Use [...] - Chula ProviderMD - 09/27/2018 10:30 AM SCHOOL CROSSING GUARD Patient: SHIVAM BERNADR Age: 33 Years Sex: Female : 1985 [...]
--- OUTSIDE RECORDS SUMMARY | 2025-05-16 12:12 | XMS_ITS | Encounter Summary ---
Author Organization [facility] Address [address] [place] [address] Care Team Providers Care Leathersmith Name Role Phone Provider, No Known Primary Care Provider [phone] Encounter Details Date Type Department Care Team [...] on filedocumented in this encounter Care Teams Leathersmith Relationship Specialty Start Date End Date Provider, [place] [address] PCP - General 01/04/24 documented as of this encounter
--- OUTSIDE RECORDS SUMMARY | 2025-05-16 12:12 | XMS_ITS | Encounter Summary ---
Author Organization [facility] Address [address] [place] [address] Care Team Providers Care Electrical And Electronic Assembler Name Role Phone Provider, No Known Primary Care Provider [phone] Encounter Details Date Type Department Care Team [...] on filedocumented in this encounter Care Teams Electrical And Electronic Assembler Relationship Specialty Start Date End Date Provider, [place] [address] PCP - General 01/04/24 documented as of this encounter
--- OUTSIDE RECORDS SUMMARY | 2025-05-16 12:12 | XMS_ITS | Clinical Summary ---
Author Organization [employer] ([place], [place], [place], [place]) Address [address] [place] [address] Care Team Providers Care Section Leader And Machine Setter Name Role Phone Unavailable Primary Care Provider [...]
--- OUTSIDE RECORDS SUMMARY | 2025-05-16 12:12 | XMS_ITS | Encounter Summary ---
Author Organization [employer] ([place], [place], [place], [place]) Address [address] [place] [address] Care Team Providers Care Real Estate Accountant Name Role Phone Unavailable Primary Care Provider Unavailabl e Encounter Details Date Type Department Care Team (Late st Contact Info) Description 09/27/2018 Transcribed Document [facility] Family Medicine Formerly [facility] [place] [address] ProviderChula MD [address] [place] [address] Social History Tobacco Use Types [...] - Chula ProviderMD - 09/27/2018 10:11 AM TELETYPESETTER PAT Adult Entered On: 09/27/2018 10:15 EST [...] Source : Stated Height Entry Format : [facility] Height, Feet : 5 ft(Converted to: 152 cm, 60 Inch) Height, Inches : 4 Inch(Converted to: 0 ft 4 Inch, 10.16 cm) Clinical Height : 162.56 cm Weight Source : Standing scale Weight Entry Format : [facility] Clinical Dosing Weight : 88.18 kg Weight, Pounds : 194 lb Body Surface Area (BSA) : 1.93 m2 Body Mass Index : 33.4 kg/m2 (HI) Gregory Body Weight : 54 kg Veronica Marin [...] Obtained From : Patient Primary Language : Urdu Preferred Communication Mode : Verbal Communication Barrier [...]
--- OUTSIDE RECORDS SUMMARY | 2025-05-16 12:12 | XMS_ITS | Encounter Summary ---
Author Organization [facility] Address [address] [place] [address] Care Team Providers Care Crm Functional Analyst Name Role Phone Provider, No Known Primary Care Provider [phone] Encounter Details Date Type Department Care Team [...] on filedocumented in this encounter Care Teams Crm Functional Analyst Relationship Specialty Start Date End Date Provider, [place] [address] PCP - General 01/04/24 documented as of this encounter
[2025-05-16 12:40] VITALS: BP 149/80; PULSE 73; RESP 17; O2SAT 98
[2025-05-16] MEDS: IRON SUCROSE COMPLEX 300 MG in 0.9 % SODIUM CHLORIDE 250 ML 220 MG IV (12:40)
[2025-05-16 13:50] VITALS: BP 139/83; PULSE 68; RESP 16
== END 2025-05-16 14:00 | disposition home or self-care (01) ==
LOC: INF 12:09
PROVIDERS: PCP Nurse Practitioner; Visit Provider Obstetrics & Gynecology
DX: O90.81 Anemia of the puerperium (principal)
CPT/HCPCS: 96365; J1756; J7050

== ENCOUNTER 2025-05-28 13:28 | Outpatient (CLI) | payer OTHER, SELFPAY ==
--- OUTSIDE RECORDS SUMMARY | 2025-04-08 14:33 | XMS_ITS | Encounter Summary ---
Author Organization [facility] Address [address] [place] [address] Care Team Providers Care Chef Saucier Name Role Phone Provider, No Known Primary Care Provider [phone] Reason for Referral * Diagnostic Imaging (Routine) - Closed Specialty Diagnoses / Procedures Referred By Carolyne diaz Referred To Contact Radiology Diagnoses Abnormal genetic test during Chronic hypertension affecting Procedures [facility] Dominick Bentley MD [address] [place] [address] Phone: tel: fax: Referral ID Status Reason Start Date Expiration Date Visits Re quested Visits Authorized [id number] Closed 12/30/2024 03/31/2026 4 4 Reason for Visit * Diagnostic Imaging (Routine) - Closed Specialty Diagnoses / Procedures Referred By Carolyne diaz Referred To Contact Radiology Diagnoses Abnormal genetic test during Chronic hypertension affecting Procedures [facility] Diagnostic [place] Dominick Bentley MD [address] [facility] [address] [place] [address] Phone: tel: fax: Referral ID Status Reason Start Date Expiration Date Visits Re quested Visits Authorized [id number] Closed 12/30/2024 03/31/2026 4 4 Encounter Details Date Type Department Care Team (Late st Contact Info) Description 04/08/2025 2:33 PM EDT - 04/08/2025 11:59 PM EDT Hospital Encounter [facility] [address] [place] [address] Dominick Bentley MD [address] [place] [address] Abnormal genetic test during ; Chronic hypertension [...] documented in this encounter Results * [facility] (04/08/2025 3:27 PM EDT) Anatomical Region Laterality Modality Ultrasound 04/08/2025 3:10 PM EDT Narrative 04/09/2025 12:30 PM EDT PAT NAME: SHIVAM BERNARD MED REC#: [id number] DA: [id number] PAT GEND: F PAT TYPE: O EXAM ALIREZA: [id number] REF PHYS WILBER BHAKTA Comparison Studies The [...] EFW (oz) 14 oz EFW by: Hadlock (GDR-KC-EW-FL) Extended Cav. septi pel. tr 4.9 mm Rubber Goods Supervisor 5.2 mm CM 8.0 mm 70% Nicolaides [...] in 3 weeks scheduled Coding ======= Description: 16250-17 Follow Up Ultrasound Description: 47713-69 BPP without NST Description: 98119-19 Doppler Umbilical Artery Water Meter Reader: Josephine Gonzales RDMS Physician: Jessica Alejandra MD, FACOG Electronically signed by: Jessica Alejandra MD, FACOG at: 12:30 Procedure Note Jessica Alejandra MD - 04/09/2025 PAT NAME: SHIVAM BERNARD MED REC#: [id number] DA: [id number] PAT GEND: F PAT TYPE: O EXAM ALIREZA: [id number] REF PHYS WILBER BHAKTA Comparison Studies The findings of this study are compared to the prior ultrasound studydated 03/25/25 Patient Status Outpatient Indication ======== AMA. CHTN. Follow up IUGR. Abnormal NIPT (high risk triploidy, T13, T18.)Hx preeclampsia & PTD (32 & 35 wk). Morbid obesity BMI 40. Maternal Assessment Oyphge160 cm Height (ft)5 ft Height (in)3 in Natapi484 kg Weight (lb)227 lb BMI40.22 kg/m Method ======= Transabdominal ultrasound examination. View: Adequate view ========= Black . Number of fetuses: 1 Dating ====== Method of dating:based on stated ARIA GA by prior [id number] w + 6 d ARIA by prior [...] Hadlock Femur59.6 mm 31w 0d 5% Hadlock Qraxwof13.1 mm 30w 6d 13% Bella HC / AC1.05 EFW1,758 g 31w 0d 9% Hadlock EFW (lb)3 lb EFW (oz)14 oz EFW by:Hadlock (VZS-EH-KA-FL) Extended Cav. septi pel. tr4.9 mm Vp5.2 mm CM8.0 mm 70% Nicolaides Head / Face / Neck Cephalic index0.82 66% Nicolaides Extremities / Bony Struc FL / BPD0.74 FL / HC0.21 FL / AC0.22 Other Structures TDA271 bpm General Evaluation Cardiac activity present. FHR [...] growth in 3 weeks scheduled Coding ======= Description:88130-00 Follow Up Ultrasound Description:81387-36 BPP without NST Description:18112-39 Doppler Umbilical Artery Water Meter Reader: Josephine Gonzales RDMS Physician: Jessica Alejandra MD, FACOG Electronically signed by: Jessica Alejandra MD, FACOG at: 2312:30 Dominick Bentley MD G US ORDERABLES Final Result documented in this encounter Visit Diagnoses Diagnosis Abnormal genetic test during Chronic hypertension affecting documented in this encounter Care Teams Chef Saucier Relationship Specialty Start Date End Date Provider, [place] [address] PCP - General 01/04/24 documented as of this encounter
--- OUTSIDE RECORDS SUMMARY | 2025-04-08 14:45 | XMS_ITS | Encounter Summary ---
[facility] [address] [place] [address] Care Team Providers Care Supervisor Furnace Room Name Role Phone Provider, No Known Primary Care Provider [phone] Reason for Visit * Reason Comments CHTN, AMA, abn NIPT, MO, hx PreE, IUGR Encounter Details Date Type Department Care Team (Late st Contact Info) Description 04/08/2025 2:45 PM EDT Office Visit [facility] MATERNAL MEDICINE [address] [address] Jessica Alejandra MD [address] [phone] Chronic hypertension affecting (Primary Dx); Antepartum multigravida [...] [facility]S. Jessica Alejandra MD FACOG Maternal Medicine, [facility] 04/08/2025 documented in this encounter Plan of Treatment Not on file documented as of this encounter Visit Diagnoses Diagnosis Chronic hypertension affecting - Primary Antepartum multigravida of advanced maternal age Abnormal genetic test during Poor growth affecting management of mother in third trimester, single or unspecified fetus documented in this encounter Care Teams Supervisor Furnace Room Relationship Specialty Start Date End Date Provider, [place] [address] PCP - General 01/04/24 documented as of this encounter
--- OUTSIDE RECORDS SUMMARY | 2025-04-30 15:18 | XMS_ITS | Encounter Summary ---
[facility] Address [address] [place] [address] Care Team Providers Care Leadership Coach Name Role Phone Provider, No Known Primary Care Provider [phone] Reason for Visit * Diagnostic Imaging (Routine) - Canceled Specialty Diagnoses / Procedures Referred By Contac t Referred To Contact Radiology Diagnoses Chronic hypertension affecting Antepartum multigravida of advanced maternal age Poor growth affecting management of mother in third trimester, single or unspecified fetus Procedures US [facility] Bentley, Dominick Silva MD [address] [place] [address] Phone: tel: fax: [facility] [address] [place] [address] Phone: tel: Referral ID Status Reason Start Date Expiration Date V isits Requested Visits Authorized [id number] Canceled 03/25/2025 06/24/2026 3 3 Encounter Details Date Type Department Care Team (Latest Contact Info) Description 04/30/2025 3:18 PM EDT - 04/30/2025 11:59 PM EDT Hospital Encounter [facility] [address] [place] [address] Wilber Bender, DO [address] [facility] [address] [place] [id number] Discharge Disposition: Home or Self Care Social [...] Priority Date/Time Associated Diagnosis Comments [facility] Routine 04/30/2025 3:41 PM EDT Chronic hypertension affecting Antepartum multigravida of advanced maternal age Poor growth affecting management of mother in third trimester, single or unspecified fetus documented in this encounter Results * [facility] (04/30/2025 3:41 PM EDT) Anatomical Region Laterality Modality Ultrasound 04/30/2025 3:28 PM EDT Narrative 04/30/2025 3:55 PM EDT PAT NAME: SHIVAM BERNARD REC#: [id number] DA: [id number] PAT GEND: F PAT TYPE: O EXAM ALIREZA: [id number] REF PHYS WILBER BENDER Comparison Studies The [...] EFW (oz) 3 oz EFW by: Hadlock (ULQ-FD-MO-FL) Extended Cav. septi pel. tr 5.3 mm Clerical Adjuster 6.3 mm Head / Face / Neck [...] 4-chamber view: Appears normal Heart / Thorax 5-ihugii-ssryvvw view: Appears normal Cord insertion: Normal Stomach: [...] Follow-up as clinically indicated. Coding ======= Description: 80496-54 Follow Up Ultrasound Description: 74479-36 BPP without NST Description: 12523-95 Doppler Umbilical Artery Bee Producer: RT Minerva Salmon , [facility] Physician: Jessica Alejandra MD, FACOG Electronically signed by: Jessica Alejandra MD, FACOG at: 15:55 Procedure Note Jessica Alejandra MD - 04/30/2025 PAT NAME: SHIVAM BERNARD MED REC#: [id number] DA: [id number] PAT GEND: F PAT TYPE: O EXAM ALIREZA: [id number] REF PHYS WILBER BENDER Comparison Studies The findings of this study are compared to the prior ultrasound studydated 04/08/25 Patient Status Outpatient Indication ======== AMA. CHTN. Follow up IUGR. Abnormal NIPT (high risk triploidy, T13, T18.)Hx preeclampsia & PTD (32 & 35 wk). Morbid obesity BMI 41. Maternal Assessment Zteeoc038 cm Height (ft)5 ft Height (in)3 in Nhozdo942 kg Weight (lb)232 lb BMI41.11 kg/m Method ======= Transabdominal ultrasound examination. View: Suboptimal view: limited bylate gestational age ========= Black . Number of fetuses: 1 Dating ====== Method of dating:based on stated ARIA GA by prior rhinzkrckd37 w + 0 d ARIA by prior assessment:05/28/2025 Ultrasound examination on:04/30/2025 GA by U/S based upon:AC, BPD, Femur, HC GA by U/S34 w + 1 d ARIA by U/S:06/10/2025 Previous dating:based on stated ARIA, selected on 04/08/2025 Agreed ARIA of previous datin05/28/2025 Assigned:based on stated ARIA, selected on 04/30/2025 Assigned GA36 w + 0 d Assigned ARIA:05/28/2025 ydmslz344 d Biometry Standard BPD84.9 mm 34w 1d 13% Hadlock LRL241.1 mm 34w 4d 18% Bella HC303.8 mm 33w 5d <1% Hadlock AC301.8 mm 34w 1d 12% Hadlock Femur66.7 mm 34w 2d 10% Hadlock Izyzlfq00.3 mm 34w 3d 29% Bella HC / AC1.01 EFW2,363 g 34w 0d 11% Hadlock EFW (lb)5 lb EFW (oz)3 oz EFW by:Hadlock (CMC-UQ-ZC-FL) Extended Cav. septi pel. tr5.3 mm Vp6.3 mm Head / Face / Neck Cephalic index0.81 44% Nicolaides Extremities / Bony Struc FL / BPD0.79 FL / HC0.22 FL / AC0.22 Other Structures OLO900 bpm General Evaluation Cardiac activity present. FHR [...] Lips:Normal 4-chamber view:Appears normal Heart / Thorax 4-qrrqlk-lvrhujc view:Appears normal Cord insertion:Normal Stomach:Appears normal Kidneys:Appears [...] Recommendation Follow-up as clinically indicated. Coding ======= Description:25758-43 Follow Up Ultrasound Description:66336-01 BPP without NST Description:69241-29 Doppler Umbilical Artery Bee Producer: RT Minerva Salmon , [facility] Physician: Jessica Alejandra MD, FACOG Electronically signed by: Jessica Alejandra MD, FACOG at: /1315:55 us Dominick Bentley MD IMG US ORDERABLES Final Result documented in this encounter Visit Diagnoses Not on filedocumented in this encounter Care Teams Leadership Coach Relationship Specialty Start Date End Date Provider, [place] [address] PCP - General 01/04/24 documented as of this encounter
--- OUTSIDE RECORDS SUMMARY | 2025-04-30 15:30 | XMS_ITS | Encounter Summary ---
[facility] Address [address] [place] [address] Care Team Providers Care Route Service Manager Name Role Phone Provider, No Known Primary Care Provider [phone] Reason for Visit * Reason Comments AMA; MO; CHTN; abnormal NIPT; hx preecla mpsia; IUGR Encounter Details Date Type Department Care Team (Late st Contact Info) Description 04/30/2025 3:30 PM EDT Office Visit [facility]NAL MEDICINE [address] [address] Jessica Alejandra MD [address] [id number] Chronic hypertension affecting (Primary Dx) Social History Tobacco Use Types Packs/Day Years [...] Sign Reading Time Taken Comments Blood Pressure 145/90 04/30/2025 3:23 PM EDT 158 /89 Pulse - - Temperature - - Respiratory Rate - - Oxygen Saturation - - Inhaled Oxygen Concentration - - Weight 106 kg (232 lb 9.6 oz) 04/30/2025 3:23 PM EDT Height - - Body Mass Index 41.2 12/30/2024 2:09 PM EDT documented in this encounter Progress Notes * Jessica Alejandra MD - 05/04/2025 11:47 PM EDTAssociated Problem(s): Chronic hypertension affecting Mild range BP in clinic today No KRAUS, vision changes, RUQ pain Did not take morning medication on time Unable to leave urine sample Discussed home BP checks and call parameters Follow up as needed Delivery 37 weeks is appropriate * Lola Morillo, RN - 04/30/2025 3:30 PM EDT Patient denies any leaking of fluid or vaginal bleeding. She reports molina caruso contractions. NIPT high risk for T18, T13, or triploidy. Patient reports next follow-up appointment with Dr. Bender's office is 05/02. * Jessica Alejandra MD - 04/30/2025 3:30 PM EDT Maternal/ Medicine Follow Up Note Name: Kala Beltran : 1985 Referring Provider: Jocelyn Bender DO Chief Complaint AMA; MO; CHTN; abnormal NIPT; hx preeclampsia; IUGR Subjective History of Present Illness: Kala Beltran is a 39 y.o. 36w4d who presents today for follow up ARIA: Estimated Date of Delivery: 05/28/25 ROS: As noted in HPI. Objective Vital Signs BP 145/90 Wt 106 kg (232 lb 9.6 oz) LMP 10/25/2023 Estimated body mass index is 41.2 kg/m?? as calculated from the following: Height as of 12/30/24: 160 cm (63 ). Weight as of this encounter: 106 kg (232 lb 9.6 oz). Ultrasound Impression: See viewpoint Assessment and Plan Kala Beltran is a 39 y.o. 36w4d Diagnoses and all orders for this visit: 1. Chronic hypertension affecting (Primary) Assessment & Plan: Mild range BP in clinic today No KRAUS, vision changes, RUQ pain Did not take morning medication on time Unable to leave urine sample Discussed home BP checks and call parameters Follow up as needed Delivery 37 weeks is appropriate Follow Up No follow-ups on file. I spent 10 minutes caring for the patient on the [...] [facility]. Jessica Alejandra MD FACOG Maternal Medicine, [facility] 04/30/2025 documented in this encounter Plan of Treatment Not on file documented as of this encounter Visit Diagnoses Diagnosis Chronic hypertension affecting - Primary documented in this encounter Care Teams Route Service Manager Relationship Specialty Start Date End Date Provider, [place] [address] PCP - General 01/04/24 documented as of this encounter
--- OUTSIDE RECORDS SUMMARY | 2025-05-28 13:32 | XMS_ITS | Clinical Summary ---
Author Organization [facility] Address [address] [place] [address] Care Team Providers Care Field Agronomist Name Role Phone Provider, No Known Primary Care Provider [phone] Allergies No known active allergies Medications amLODIPine [...] given her abnormal NIPT this could be software support representative of that testing. As of [...] that CMV testing was performed with primary BIOMED TECH and she said that the IgM was positive and that the antibody was high though we do not have records of this. This could be indicative of IgM with high avidity which could be software support representative of new infection though patient [...] Description 04/30/2025 3:30 PM EDT Office Visit [facility] [address] [address] Jessica Alejandra MD Chronic hypertension affecting (Primary Dx) 04/30/2025 3:18 PM EDT - 04/30/2025 11:59 PM EDT Hospital Encounter [facility] [address] [place] [address] Wilber Bender DO Discharge Disposition: Home or Self Care 04/30/2025 Travel 04/08/2025 2:45 PM EDT Office Visit [facility] [address] [address] Jessica Alejandra MD Chronic hypertension affecting (Primary Dx); Antepartum multigravida of advanced maternal age; Abnormal genetic test during ; Poor growth affecting management of mother in third trimester, single or unspecified fetus 04/08/2025 2:33 PM EDT - 04/08/2025 11:59 PM EDT Hospital Encounter [facility] [address] [place] [address] Dominick Bentley MD Abnormal genetic test during ; Chronic hypertension affecting Discharge Disposition: Home or Self Care 04/08/2025 Travel 03/25/2025 3:00 PM EDT Office Visit [facility] [address] [phone] Dominick Bentley MD Poor growth affecting management of mother in third trimester, single or unspecified fetus (Primary Dx); Chronic hypertension affecting ; Antepartum multigravida of advanced maternal age; Abnormal genetic test during 03/25/2025 3:00 PM EDT - 03/25/2025 11:59 PM EDT Hospital Encounter [facility] [address] [place] [address] Wilber Bender DO Discharge Disposition: Home or Self Care 03/25/2025 Travel 02/25/2025 2:15 PM EDT Office Visit [facility] [address] [phone] Jessica Alejandra MD Antepartum multigravida of advanced maternal age (Primary Dx); Chronic hypertension affecting 02/25/2025 2:00 PM EDT - 02/25/2025 11:59 PM EDT Hospital Encounter [facility] [address] [place] [address] Wilber Bender DO Discharge Disposition: Home or [...] ANNUAL PHYSICAL 01/04/2024 HEPATITIS C SCREENING 01/04/2024 HEMOGLOBIN A1C 07/09/2024 01/08/2024, 01/15/2019 COVID-19 Vaccine (1 - 2023-2 5 season) 2025 INFLUENZA VACCINE 06/18/2025 07/20/2018, , 07/20/2016, Additional history exists TDAP/TD VACCINES (3 - Td or Tdap) 01/10/2035 025, 09/12/2013 RSV Vaccine - Adults (No Dos es Required) Completed Procedures Procedure Name Priority Date/Time Associated Diagnosis Comments [facility] Routine 04/30/2025 3:41 PM EDT Chronic hypertension affecting Antepartum multigravida of advanced maternal age Poor growth affecting management of mother in third trimester, single or unspecified fetus [facility] Routine 04/08/2025 3:27 PM EDT Abnormal genetic test during Chronic hypertension affecting [facility] Routine 03/25/2025 3:56 PM EDT Abnormal genetic test during Chronic hypertension affecting [facility] Routine 02/25/2025 2:41 PM EDT Abnormal genetic test during Chronic hypertension affecting HEMOGLOBIN A1C Routine 01/08/2024 8:54 AM EDT Blighted ovum from Last 3 Months or Most Recently Relevant to Health Maintenance Results * [facility] (04/30/2025 3:41 PM EDT) Only the most recent of4 resultswithin the time period is included. Anatomical Region Laterality Modality Ultrasound 04/30/2025 3:28 PM EDT Narrative 04/30/2025 3:55 PM EDT PAT NAME: SHIVAM BERNARD MED REC#: [id number] DA: [id number] PAT GEND: F PAT TYPE: O EXAM ALIREZA: [id number] REF PHYS WILBER BENDER Comparison Studies The [...] EFW (oz) 3 oz EFW by: Hadlock (UNW-JN-US-FL) Extended Cav. septi pel. tr 5.3 mm Tube Buffer 6.3 mm Head / Face / Neck [...] 4-chamber view: Appears normal Heart / Thorax 0-oluiou-ogjzpji view: Appears normal Cord insertion: Normal Stomach: [...] Follow-up as clinically indicated. Coding ======= Description: 64585-31 Follow Up Ultrasound Description: 45578-97 BPP without NST Description: 45549-68 Doppler Umbilical Artery Cracker Sprayer: RT Minerva Salmon , [facility] Physician: Jessica Alejandra MD, FACOG Electronically signed by: Jessica Alejadnra MD, FACOG at: 15:55 Procedure Note Jessica Alejandra MD - 04/30/2025 PAT NAME: SHIVAM BERNARD MED REC#: [id number] DA: [id number] PAT GEND: F PAT TYPE: O EXAM ALIREZA: [id number] REF PHYS WILBER BENDER Comparison Studies The findings of this study are compared to the prior ultrasound studydated 04/08/25 Patient Status Outpatient Indication ======== AMA. CHTN. Follow up IUGR. Abnormal NIPT (high risk triploidy, T13, T18.)Hx preeclampsia & PTD (32 & 35 wk). Morbid obesity BMI 41. Maternal Assessment Jijjek591 cm Height (ft)5 ft Height (in)3 in Jwtwkz518 kg Weight (lb)232 lb BMI41.11 kg/m Method ======= Transabdominal ultrasound examination. View: Suboptimal view: limited bylate gestational age ========= Black . Number of fetuses: 1 Dating ====== Method of dating:based on stated ARIA GA by prior llbtefrgmx33 w + 0 d ARIA by prior assessment:05/28/2025 Ultrasound examination on:04/30/2025 GA by U/S based upon:AC, BPD, Femur, HC GA by U/S34 w + 1 d ARIA by U/S:06/10/2025 Previous dating:based on stated ARIA, selected on 04/08/2025 Agreed ARIA of previous datin05/28/2025 Assigned:based on stated ARIA, selected on 04/30/2025 Assigned GA36 w + 0 d Assigned ARIA:05/28/2025 sayphv059 d Biometry Standard BPD84.9 mm 34w 1d 13% Hadlock YHO138.1 mm 34w 4d 18% Bella HC303.8 mm 33w 5d <1% Hadlock AC301.8 mm 34w 1d 12% Hadlock Femur66.7 mm 34w 2d 10% Hadlock Qseaygo14.3 mm 34w 3d 29% Bella HC / AC1.01 EFW2,363 g 34w 0d 11% Hadlock EFW (lb)5 lb EFW (oz)3 oz EFW by:Hadlock (BSS-DG-UF-FL) Extended Cav. septi pel. tr5.3 mm Vp6.3 mm Head / Face / Neck Cephalic index0.81 44% Nicolaides Extremities / Bony Struc FL / BPD0.79 FL / HC0.22 FL / AC0.22 Other Structures HSG339 bpm General Evaluation Cardiac activity present. FHR [...] Lips:Normal 4-chamber view:Appears normal Heart / Thorax 7-eiirao-hxjvqmn view:Appears normal Cord insertion:Normal Stomach:Appears normal Kidneys:Appears [...] Recommendation Follow-up as clinically indicated. Coding ======= Description:65985-25 Follow Up Ultrasound Description:87718-37 BPP without NST Description:21775-57 Doppler Umbilical Artery Cracker Sprayer: RT Minerva Salmon , [facility] Physician: Jessica Alejandra MD, FACOG [...] Performed at: [facility] [place], [place] [id number] Oxygen Tank Filler: Kevin Staley MD, Phone: [phone] Patient Fasting: N us Caleb Alves MD LAB BLOOD ORDERABLES Fin al Result [facility] ([facility]) [address] [place] [address], [facility] [address] [place] [address], from Last 3 Months or Most Recently Relevant to Health Maintenance [place] [address] [place] [address] Care Teams Field Agronomist Relationship Specialty Start Date End Date Provider, [place] [address] PCP - General 01/04/24
--- OUTSIDE RECORDS SUMMARY | 2025-05-28 13:32 | XMS_ITS | Encounter Summary ---
Author Organization [facility] Address [address] [place] [address] Care Team Providers Care Emergency Vehicle Operations Instructor Name Role Phone Provider, No Known Primary Care Provider [phone] Encounter Details Date Type Department Care Team [...] on filedocumented in this encounter Care Teams Emergency Vehicle Operations Instructor Relationship Specialty Start Date End Date Provider, [place] [address] PCP - General 01/04/24 documented as of this encounter
--- OUTSIDE RECORDS SUMMARY | 2025-05-28 13:33 | XMS_ITS | Clinical Summary ---
Author Organization [facility] Address [address] [place] [address] Care Team Providers Care Film Processing Utility Worker Name Role Phone Rosemary Fuller Primary Care [...] Tdap) 09/12/2023 09/12/2013 Colonoscopy 12/29/2023 12/29/2021, 11/13/2019 [facility]-Depression Screening 01/03/2025 01/04/2024 [id number] Vaccine ( - season) 2025 [facility]-Influenza Vaccine (#1) 05/19/202507/20, 07/06/2017, 07/20/2016, Additional [...] RN Endo Nurse Roberto Carlos Davis CRNA ENVIRONMENTAL JOURNALIST, No role selected Kell Carrera RN Endo Nurse Mady Alvarez Endo Nurse James Morales MD Anesthesiologist MD Daniel Dinero MD Proceduralist Creative Services Designer Unknown Endo Nurse 1 Endo Nurse Preprocedure [...] of bowel preparation was evaluated using the [place] Bowel Preparation Scale with scores of: right [...] were documented in this log. Findings Healthy efpe-dv-bhvw ileocolonic anastomosis with no bleeding The rectum [...] <6.0% Children and Adolescents <7.5% . Source: [place] [employer]. Standards of medical care in [...] Insurance [employer] Care Teams Film Processing Utility Worker Relationship Specialty Start Date End Date Rosemary Fuller PA [address] [place] [address] [place] [address] PCP - General 01/29/21
--- OUTSIDE RECORDS SUMMARY | 2025-05-28 13:33 | XMS_ITS | Encounter Summary ---
Author Organization [facility] Address [address] [place] [address] Care Team Providers Care Index Clerk Name Role Phone Provider, No Known Primary Care Provider [phone] Encounter Details Date Type Department Care Team [...] on filedocumented in this encounter Care Teams Index Clerk Relationship Specialty Start Date End Date Provider, [place] [address] PCP - General 01/04/24 documented as of this encounter
[2025-05-28 14:05] VITALS: BP 125/74; PULSE 74; RESP 18; O2SAT 99
[2025-05-28] MEDS: IRON SUCROSE COMPLEX 300 MG in 0.9 % SODIUM CHLORIDE 250 ML 220 MG IV (14:05)
[2025-05-28 15:15] VITALS: BP 133/70; PULSE 72
== END 2025-05-28 15:20 | disposition home or self-care (01) ==
LOC: INF 13:29
PROVIDERS: PCP Physician Assistant; Visit Provider Obstetrics & Gynecology
DX: O99.019 Anemia complicating pregnancy, unspecified trimester (principal); D50.9 Iron deficiency anemia, unspecified; Z3A.00 Weeks of gestation of pregnancy not specified
CPT/HCPCS: 96365; J1756; J7050